=== PATIENT | male | born 1955 | race Caucasian/White ===

== ENCOUNTER → 2018-01-09 14:42 | Outpatient (CLI) | payer MEDICAID, SELFPAY ==
--- NOTE | 2018-01-09 14:43 | CT_ITS ---
STUDY: CT CHEST WITH CONTRAST REASON FOR EXAM: Male, 62 years old. Follow-up colon cancer and prostate cancer. RADIATION DOSAGE (If Supplied By Facility): CTDIvol = ( 20.38 ) mGy, DLP = ( 2248.41 ) mGycm TECHNIQUE: Transaxial imaging was performed following intravenous administration of 100CC ml of Isovue 300 contrast material. Individualized dose optimization techniques were used for this CT. COMPARISON: None. FINDINGS: The lungs are normal. There is no demonstrated pleural abnormality. Normal heart and pericardium. Normal mediastinum. Normal hilar regions. Normal enhanced pulmonary arteries. Normal aorta arch and descending thoracic aorta. Normal osseous structures. There is no demonstrated abnormality of the visualized upper abdomen. Small hiatal hernia. CT/Chest WITH Contrast IMPRESSION: Normal enhanced CT Chest examination. Electronically Signed: Eliecer Benavides MD at 16:10 EST , Service support ,
--- NOTE | 2018-01-09 14:44 | CT_ITS ---
STUDY: CT ABDOMEN AND PELVIS WITH CONTRAST REASON FOR EXAM: Male, 62 years old. Follow-up colon cancer. RADIATION DOSAGE (If Supplied By Facility): CTDIvol = ( 20.38 ) mGy, DLP = ( 2248.41 ) mGycm TECHNIQUE: Transaxial images were obtained from the dome of the diaphragm to the symphysis pubis with oral contrast. 100CC ml of Isovue 300 contrast was administered. Sagittal and coronal images were reconstructed. Individualized dose optimization techniques were used for this CT. COMPARISON: 11/06/2016. FINDINGS: The visualized lung bases are unremarkable. The visualized portions of the heart are within normal limits. Normal liver. Normal gallbladder and extrahepatic biliary system. Normal spleen. Normal pancreas. Normal bilateral adrenal glands. Normal right kidney. Normal left kidney. Normal visualized stomach. Normal small intestine. Stable appearance of partial left colon resection, otherwise normal colon. The appendix is visualized and appears normal. Normal abdominal aorta. Normal inferior vena cava. Normal retroperitoneum. Normal urinary bladder. Stable appearance of enlarged prostate gland with radiotherapy seeds. Normal abdominal wall. Normal osseous structures. CT/Abdomen/Pelvis WITH Contrast IMPRESSION: No change or acute abnormality. Electronically Signed: Eliecer Benavides MD at 15:58 EST , Service support ,
[2018-01-09 15:01] LABS: CREATININE FINGERSTICK 0.9 mg/dL (0.70-1.30); EGFR FINGERSTICK > 60.0000 mL/min (>60)
== END ==
PROVIDERS: Family Provider Family Medicine Geriatric Medicine; PCP Family Medicine Geriatric Medicine; Visit Provider Nurse Practitioner Family
DX: C18.9 Malignant neoplasm of colon, unspecified (principal)
CPT/HCPCS: 71260; 74177; Q9967

== ENCOUNTER → 2018-02-05 15:12 | Outpatient (CLI) | payer MEDICAID, SELFPAY ==
[2018-02-05 19:00] LABS: Amphetamine Urine VISTA NEGATIVE (<1000 ng/mL); Barbiturate Urine VISTA NEGATIVE (< 200 ng/mL); Benzodiazepine Urine VISTA POSITIVE (< 200 ng/mL); Cocaine Urine VISTA NEGATIVE (< 300 ng/mL); Ecstacy Urine VISTA NEGATIVE (< 500 ng/mL); Methadone Urine VISTA NEGATIVE (< 300 ng/mL); PCP Urine VISTA NEGATIVE (< 25 ng/mL); THC Urine VISTA NEGATIVE (< 50 ng/mL); Vista UDS pH Range 5
== END ==
PROVIDERS: Family Provider Family Medicine Geriatric Medicine; PCP Family Medicine Geriatric Medicine; Visit Provider Anesthesiology Pain Medicine
DX: F11.20 Opioid dependence, uncomplicated (principal)
CPT/HCPCS: 80307

== ENCOUNTER → 2018-03-06 13:34 | Outpatient (CLI) | payer MEDICARE, MEDICAID, SELFPAY ==
[2018-03-06 15:41] LABS: Absolute Lymphocyte Count 2.14 X10^3/ul (0.83-4.51); Absolute Neutrophil Count 3.5 X10^3/uL (2.0-7.7); Basophil# 0.03 X10^3/uL; Basophil% 0.5 % (0-1); Eosinophil# 0.11 X10^3/uL; Eosinophils% 1.8 % (0-5); Hematocrit 45.8 % (40-54); Hemoglobin 14.9 g/dl (13.0-16.5); Lymphocyte # 2.14 X10^3/ul (4.0); Lymphocyte % 34.4 % (19-41); Mean Corp Hgb Conc 32.5 g/gl (32-36); Mean Corpuscular Hgb 29.1 pg (27.0-32.0); Mean Corpuscular Volume 89.5 fL (80-94); Mean Platelet Vol. 10.1 fl (6.2-12.0); Monocyte# 0.43 X10^3/uL; Monocyte% 6.9 % (0-10); Neutrophil # 3.49 X10^3/uL (2.7-7.7); Neutrophil % 56.1 % (47-70); Platelet Count 222 K/mm3 (150-450); RBC Distribution Width CV 13.7 % (11.6-14.6); RBC Distribution Width SD 45.1 fl (35.1-43.9); Red Blood Count 5.12 M/mm3 (4.6-6.2); White Blood Count 6.2 K/mm3 (4.4-11.0)
[2018-03-06 15:51] LABS: POSITIVE COUNT NO; POSITIVE DIFFERENTIAL NO; POSITIVE MORPHOLOGY NO
[2018-03-06 16:11] LABS: ALB/GLOB Ratio 1.2 RATIO (0.9-2.4); AST(SGOT) 16 U/L (15-37); Alanine Aminotransfer ALT/SGPT 39 U/L (16-61); Alkaline Phosphatase 74 U/L (45-117); Anion Gap 7 (5-15); BUN 19 mg/dL (7-18); BUN/Creat Ratio 19.1 RATIO (10-20); Calcium,Total 8.9 mg/dL (8.5-10.1); Chloride 109 mmol/L (98-107); EST Glomerular Filtration Rate 81 mL/min (>60); Est Glom Filt Rate - Afr Amer 98 mL/min (>60); Globulin 3.4 g/dL (2.2-4.2); Glucose 78 mg/dL (74-106); Potassium 4.3 mmol/L (3.5-5.1); Protein, Total 7.4 g/dL (6.4-8.2); Sodium Level 141 mmol/L (136-145); Thyroid Stim Hormone (TSH) 2.64 uIU/mL (0.358-3.74)
[2018-03-07 08:14] LABS: Vitamin D,25 Hydroxy 40.7 ng/mL (29.95-100.01)
[2018-03-09 09:11] LABS: Hep C Antibodies <0.1 s/co ratio (0.0-0.9)
== END ==
PROVIDERS: Family Provider Family Medicine Geriatric Medicine; PCP Family Medicine Geriatric Medicine; Visit Provider Family Medicine Geriatric Medicine
DX: I10 Essential (primary) hypertension (principal); E55.9 Vitamin D deficiency, unspecified; Z13.89 Encounter for screening for other disorder
CPT/HCPCS: 36415; 80053; 82306; 84443; 85025; 86803

== ENCOUNTER → 2018-07-18 12:30 | Outpatient (CLI) | payer MEDICARE, MEDICAID, SELFPAY | PROVIDERS: Family Provider Family Medicine Geriatric Medicine; PCP Family Medicine Geriatric Medicine; Visit Provider Family Medicine Geriatric Medicine | DX: M25.512 Pain in left shoulder (principal) | CPT/HCPCS: 73030 ==

== ENCOUNTER → 2018-09-04 14:13 | Outpatient (CLI) | payer MEDICARE, MEDICAID, SELFPAY ==
[2018-09-04 17:02] LABS: Absolute Lymphocyte Count 1.89 X10^3/ul (0.83-4.51); Absolute Neutrophil Count 3.1 X10^3/uL (2.0-7.7); Basophil# 0.04 X10^3/uL; Basophil% 0.7 % (0-1); Eosinophil# 0.07 X10^3/uL; Eosinophils% 1.3 % (0-5); Hematocrit 43.1 % (40-54); Hemoglobin 14.4 g/dl (13.0-16.5); Lymphocyte # 1.89 X10^3/ul (4.0); Lymphocyte % 34.1 % (19-41); Mean Corp Hgb Conc 33.4 g/gl (32-36); Mean Corpuscular Hgb 30.1 pg (27.0-32.0); Mean Corpuscular Volume 90.2 fL (80-94); Mean Platelet Vol. 10.2 fl (6.2-12.0); Monocyte# 0.45 X10^3/uL; Monocyte% 8.1 % (0-10); Neutrophil # 3.07 X10^3/uL (2.7-7.7); Neutrophil % 55.4 % (47-70); Platelet Count 236 K/mm3 (150-450); RBC Distribution Width CV 14.2 % (11.6-14.6); RBC Distribution Width SD 46.5 fl (35.1-43.9); Red Blood Count 4.78 M/mm3 (4.6-6.2); White Blood Count 5.5 K/mm3 (4.4-11.0)
[2018-09-04 17:06] LABS: POSITIVE COUNT NO; POSITIVE DIFFERENTIAL NO; POSITIVE MORPHOLOGY NO
[2018-09-04 17:32] LABS: ALB/GLOB Ratio 1.1 RATIO (0.9-2.4); AST(SGOT) 22 U/L (15-37); Alanine Aminotransfer ALT/SGPT 34 U/L (16-61); Albumin, Serum 3.9 g/dL (3.2-5.0); Alkaline Phosphatase 65 U/L (45-117); Anion Gap 6 (5-15); BUN 17 mg/dL (7-18); BUN/Creat Ratio 16.5 RATIO (10-20); Chloride 107 mmol/L (98-107); Creatinine, Serum 1.03 mg/dL (0.70-1.30); EST Glomerular Filtration Rate 78 mL/min (>60); Est Glom Filt Rate - Afr Amer 94 mL/min (>60); Globulin 3.5 g/dL (2.2-4.2); Glucose 84 mg/dL (74-106); Potassium 4.2 mmol/L (3.5-5.1); Protein, Total 7.4 g/dL (6.4-8.2); Sodium Level 139 mmol/L (136-145); Thyroid Stim Hormone (TSH) 1.91 uIU/mL (0.358-3.74)
== END ==
PROVIDERS: Family Provider Family Medicine Geriatric Medicine; PCP Family Medicine Geriatric Medicine; Visit Provider Family Medicine Geriatric Medicine
DX: I10 Essential (primary) hypertension (principal)
CPT/HCPCS: 36415; 80053; 84443; 85025

== ENCOUNTER → 2018-09-12 14:51 | Outpatient (CLI) | payer MEDICARE, MEDICAID, SELFPAY ==
--- NOTE | 2018-09-12 | CYST_PTH ---
PATIENT: LEANN SOLOMON LOC: [facility] U#:[id number] AGE/SX: 70/M ROOM: RE09/12/[address]: Dr. Shwetha Rodriguez MD : 1955 BED: DIS: SPEC #: [id number] RECD: 09/12/18 14:51 STATUS: RAJIV SENAIT #: [id number] LYNNE: 09/12/18 00:[address]: Shwetha Rodriguez DEPT: SURGICAL PATHOLOGY RECD BY: Gerald Infante ENTERED: 09/13/18 07:55 SP TYPE: Cyst OTHR DR: Dr. Edwin Donald MD Tissues: Back, NOS Procedures: Surgery Specimen Level III HEADER OPERATION: Excision of cyst on back PRE-OP DIAGNOSIS: Cyst on back TISSUE SUBMITTED: Cyst on back MICROSCOPIC DIAGNOSIS Cyst on back, excision: Epidermal inclusion cyst with chronic inflammation and foreign body giant cell reaction, consistent with ruptured epidermal inclusion cyst. SJ:mike 09/14/18 MICROSCOPIC DESCRIPTION Slides are reviewed. GROSS DESCRIPTION Received in fixative is one container labeled with the patient's name and designated cyst on back. The specimen consists of a piece of parks-white skin measuring 1.5 x 0.5 cm. The underlying tissue measures 1.5 x 1 x 1 cm. Also present in the container is a detached piece of parks soft tissue measuring 1 x 1 x 0.2 cm. The largest piece is inked and serially sectioned. The entire specimen is submitted in two cassettes. / MARSHA:mike 09/13/18 TC:5 CPT: 96832
== END ==
PROVIDERS: Family Provider Family Medicine Geriatric Medicine; Visit Provider Surgery
DX: L72.0 Epidermal cyst (principal)
CPT/HCPCS: 88304

== ENCOUNTER → 2018-09-17 14:46 | Outpatient (CLI) | payer MEDICARE, MEDICAID, SELFPAY ==
--- NOTE | 2018-09-17 14:50 | CT_ITS ---
STUDY: CT CHEST WITH CONTRAST REASON FOR EXAM: Male, 63 years old. Colon cancer RADIATION DOSAGE (If Supplied By Facility): CTDIvol = ( 21.15 ) mGy, DLP = ( 2228.86 ) mGycm TECHNIQUE: Transaxial imaging was performed following intravenous administration of 100 ml of Isovue 300 contrast material. : Sagittal 2-D MPR. Individualized dose optimization techniques were used for this CT. COMPARISON: CT abdomen and pelvis same date. CT chest abdomen and pelvis 01/09/2018, CT chest 06/10/2017 and 05/12/2016. FINDINGS: Supraclavicular: No acute process. Body wall soft tissues: Mild symmetric gynecomastia. Stable. Upper abdomen: Limited evaluation, no acute process. Osseous structures: No acute process. Mediastinum: Normal esophagus. No mediastinal or hilar mass or lymphadenopathy. Aorta: Normal. Pulmonary arteries: Normal. Heart: No cardiomegaly or pericardial effusion. Mild coronary calcifications of the proximal RCA and LAD. Lungs: No acute process. No suspicious lesions. Normal airways without endobronchial lesion. CT/Chest WITH Contrast IMPRESSION: No acute cardiopulmonary process. Stable features of the chest compared to prior imaging. Electronically Signed: Anthony Villalobos, at 17:31 EDT Tel , Service support ,
--- NOTE | 2018-09-17 14:50 | CT_ITS ---
STUDY: CT ABDOMEN AND PELVIS WITH CONTRAST REASON FOR EXAM: Male, 63 years old. Colon cancer RADIATION DOSAGE (If Supplied By Facility): CTDIvol = ( 21.15 ) mGy, DLP = ( 2228.86 ) mGycm TECHNIQUE: Transaxial images were obtained from the dome of the diaphragm to the symphysis pubis with oral contrast. 100 ml of Isovue 300 contrast was administered. Sagittal and coronal images were reconstructed. Individualized dose optimization techniques were used for this CT. COMPARISON: CT chest 09/15/2018, CT abdomen and pelvis 01/09/2018 and CTA chest 06/10/2017. CT abdomen and pelvis of October and May 2016, and September 2015. FINDINGS: Body wall soft tissues: No acute process. Osseous structures: Minimal spondylosis. No suspicious lytic or blastic lesions. Inferior chest: The lung bases are clear. Distal esophagus normal. No cardiomegaly. Hepatobiliary: Normal. Pancreas: Mild atrophy. Spleen: Normal. Adrenal glands: Normal. Urogenital: Normal kidneys with symmetric nephrograms. Normal collecting systems, ureters, urinary bladder. Prostatic radiotherapy seeds. Dystrophic calcifications of the prostate gland without prostatomegaly. Symmetric and grossly normal seminal vesicles. Pelvic floor and sidewalls and retroperitoneum: No mass or adenopathy. Vasculature: Mild atherosclerosis. Stomach: No acute process. Small bowel and mesentery: No acute process. Large bowel: Normal appendix. Anastomotic sutures of the proximal sigmoid colon. Otherwise normal large bowel and rectum. Free fluid or free air: None. CT/Abdomen/Pelvis WITH Contrast IMPRESSION: No acute abdominopelvic process. There is no evidence of primary malignancy or metastatic disease. Electronically Signed: Anthony Villalobos, at 16:19 EDT Tel , Service support ,
== END ==
PROVIDERS: Family Provider Family Medicine Geriatric Medicine; PCP Family Medicine Geriatric Medicine; Referring Provider Internal Medicine Medical Oncology; Visit Provider Internal Medicine Medical Oncology
DX: C18.9 Malignant neoplasm of colon, unspecified (principal)
CPT/HCPCS: 71260; 74177; Q9967

== ENCOUNTER 2018-09-20 13:24 | Emergency (ER) | payer MEDICARE, MEDICAID, SELFPAY ==
[2018-09-20 13:24] VITALS: BP 138/78; PULSE 80; RESP 16; TEMP 36.4; O2SAT 98; BMI 31.7
--- NOTE | 2018-09-20 14:36 | VDLE_ITS ---
[id number] VL^VDUL^Venous Duplex US- Unilateral [id number] [facility] Venous Doppler [address] [place] [address] Ordering Physician: Luke Wallace TAG_ENDED TAG_START Name: LEANN SOLOMON Study Date: 09/20/2018 03:06 PM Patient Location: ED : 1955 Gender: Male Age: 63 yrs TAG_ENDED Reason For Study: LEG PAIN RIGHT GSV is normal. CFV is compressible, spontaneous, phasic, competent and demonstrates normal augmentation. FV is compressible, spontaneous, phasic, competent and demonstrates normal augmentation. POP V is compressible, spontaneous, phasic, competent and demonstrates normal augmentation. T/P Trunk is compressible. PTV is compressible. RT PerV is compressible. Procedure Exam performed portable in ED. A preliminary report was called and/or faxed to Dr. Wallace. <> Interpretation Summary There is no evidence of right lower extremity deep vein thrombosis. Right greater saphenous vein appears patent and compressible segmentally. TAG_START TAG_ENDED Ordering Physician: Luke Wallace Referring Physician: Edwin Donald Chi Performed By: Angelica Hernandez RVT
--- NOTE | 2018-09-20 15:18 | ED.VISSUMM ---
- ER Visit Summary Date of Service: 09/20/18 Chief Complaint: Atraumatic right calf pain while putting trousers on History of Present Illness: The patient is a 63 M who presents because of right calf pain. He states he was pulling up his trousers. He was doing on the leg. He states if he stands on the leg the pain is worse. Localized pain to the mid calf. He denies chest pain or shortness of breath. He does have history of colon cancer, prostate cancer and per old records history of PE, which she denied. He is pleasant on no anticoagulant. He denies paresthesia, anesthesia or motor weakness of the right lower externally. He denies symptoms of claudication. Physical Examination: Vital signs noted and blood pressure is slightly elevated 138/78. He appears no discomfort. There is pain palpation along the deep venous system, right calf. There is no asymmetry, leg vein distention, palpable cords or swelling. Having him plantar and dorsiflexes foot against resistance causes no discomfort. Lateral and AP stressing of the tibia and fibula causes no discomfort. There is no pain the patient over the tibia or fibula anteriorly. DP pulses palpable. Test Results: D-dimer was elevated at 0.7. The d-dimer is elevated after correction for age. Venous duplex study was negative for DVT Emergency Department Course and Treatment: With history of cancer atraumatic pain right calf and pain along the distribution of deep venous system a d-dimer was obtained. Since d-dimer was elevated a venous duplex study was obtained. Treatment Plan: Symptomatic treatment Disposition: Discharged home Impression: Atraumatic right calf pain unknown etiology This note was generated with [employer] dictation software. It may contain incorrect words, spelling, and punctuation that were not noted in review of the chart prior to signing ED Disposition - Plan for ED Patient: Disposition: Home or Assisted Living Chief Complaint: Lower Extremity Injury Instructions: ED Muscle Aching Referrals: Edwin Donald Chi, MD [Primary Care Provider] - 3-5 Days if not improving Additional Instructions: Take either Tylenol or Advil for your pain.
== END 2018-09-20 15:34 | disposition home or self-care (01) ==
PROVIDERS: Emergency Provider Emergency Medicine; Family Provider Family Medicine Geriatric Medicine; PCP Family Medicine Geriatric Medicine
DX: M79.661 Pain in right lower leg (principal); I10 Essential (primary) hypertension; R74.8 Abnormal levels of other serum enzymes; E66.9 Obesity, unspecified; Z85.038 Personal history of other malignant neoplasm of large intestine; Z85.46 Personal history of malignant neoplasm of prostate; Z86.711 Personal history of pulmonary embolism; Z87.891 Personal history of nicotine dependence
CPT/HCPCS: 36415; 85379; 93971; 99282

== ENCOUNTER → 2019-01-10 11:00 | Outpatient (CLI) | payer MEDICARE, MEDICAID, SELFPAY ==
--- NOTE | 2019-01-10 11:10 | RAD_ITS ---
STUDY: X-RAY - CERVICAL SPINE REASON FOR EXAM: Male, 63 years old. Neck pain TECHNIQUE: 3 view(s) of the cervical spine were obtained. COMPARISON: None FINDINGS: Normal anterior atlantoaxial articulation. Normal odontoid process. Normal cervical lordosis. There is multi-level endplate spondylosis. There is multi-level degenerative disc disease with multilevel disc space narrowing. The soft tissue structures are unremarkable. There is no demonstrated fracture of the cervical spine. RAD/Cerv Spine 2 or 3 Views IMPRESSION: Normal x-ray examination of the visualized cervical spine. Electronically Signed: Eliecer Benavides MD at 17:58 EST , Service support ,
== END ==
PROVIDERS: Family Provider Family Medicine Geriatric Medicine; PCP Family Medicine Geriatric Medicine; Referring Provider Anesthesiology Pain Medicine; Visit Provider Anesthesiology Pain Medicine
DX: M54.2 Cervicalgia (principal)
CPT/HCPCS: 72040

== ENCOUNTER → 2019-02-15 11:47 | Outpatient (CLI) | payer MEDICARE, MEDICAID, SELFPAY ==
[2019-02-15 12:17] LABS: Absolute Lymphocyte Count 1.77 X10^3/ul (0.83-4.51); Absolute Neutrophil Count 2.2 X10^3/uL (2.0-7.7); Basophil# 0.04 X10^3/uL; Basophil% 0.9 % (0-1); Eosinophil# 0.15 X10^3/uL; Eosinophils% 3.4 % (0-5); Hematocrit 42.1 % (40-54); Hemoglobin 14.2 g/dl (13.0-16.5); Lymphocyte # 1.77 X10^3/ul (4.0); Lymphocyte % 40.5 % (19-41); Mean Corp Hgb Conc 33.7 g/gl (32-36); Mean Corpuscular Hgb 29.5 pg (27.0-32.0); Mean Corpuscular Volume 87.3 fL (80-94); Mean Platelet Vol. 9.8 fl (6.2-12.0); Monocyte# 0.24 X10^3/uL; Monocyte% 5.5 % (0-10); Neutrophil # 2.16 X10^3/uL (2.7-7.7); Neutrophil % 49.5 % (47-70); Platelet Count 229 K/mm3 (150-450); RBC Distribution Width SD 41.5 fl (35.1-43.9); Red Blood Count 4.82 M/mm3 (4.6-6.2); White Blood Count 4.4 K/mm3 (4.4-11.0)
[2019-02-15 12:18] LABS: POSITIVE COUNT NO; POSITIVE DIFFERENTIAL NO; POSITIVE MORPHOLOGY NO
[2019-02-15 12:46] LABS: ALB/GLOB Ratio 1.1 RATIO (0.9-2.4); AST(SGOT) 22 U/L (15-37); Alanine Aminotransfer ALT/SGPT 35 U/L (16-61); Albumin, Serum 3.5 g/dL (3.2-5.0); Alkaline Phosphatase 80 U/L (45-117); Anion Gap 8 (5-15); BUN 12 mg/dL (7-18); BUN/Creat Ratio 12.4 RATIO (10-20); Calcium,Total 8.5 mg/dL (8.5-10.1); Chloride 114 mmol/L (98-107); Creatinine, Serum 0.97 mg/dL (0.70-1.30); EST Glomerular Filtration Rate 83 mL/min (>60); Est Glom Filt Rate - Afr Amer 101 mL/min (>60); Globulin 3.3 g/dL (2.2-4.2); Glucose 97 mg/dL (74-106); Potassium 3.7 mmol/L (3.5-5.1); Protein, Total 6.8 g/dL (6.4-8.2); Sodium Level 145 mmol/L (136-145)
[2019-02-15 19:52] LABS: Xtra Tube EP Lab EXTRA TUBE
[2019-02-16 17:14] LABS: Carcinoembryonic Antigen 0.5 ng/mL (0.0-4.7)
== END ==
PROVIDERS: Family Provider Family Medicine Geriatric Medicine; PCP Family Medicine Geriatric Medicine; Referring Provider Internal Medicine Medical Oncology; Visit Provider Internal Medicine Medical Oncology
DX: Z85.038 Personal history of other malignant neoplasm of large intestine (principal)
CPT/HCPCS: 36415; 80053; 82378; 85025

== ENCOUNTER → 2019-03-07 13:48 | Outpatient (CLI) | payer MEDICARE, MEDICAID, SELFPAY ==
[2019-03-07 16:39] LABS: Absolute Lymphocyte Count 1.76 X10^3/ul (0.83-4.51); Absolute Neutrophil Count 2.4 X10^3/uL (2.0-7.7); Basophil# 0.05 X10^3/uL; Eosinophil# 0.21 X10^3/uL; Eosinophils% 4.3 % (0-5); Hemoglobin 14.6 g/dl (13.0-16.5); Lymphocyte # 1.76 X10^3/ul (4.0); Mean Corp Hgb Conc 33.2 g/gl (32-36); Mean Corpuscular Hgb 28.9 pg (27.0-32.0); Mean Platelet Vol. 10.7 fl (6.2-12.0); Monocyte# 0.44 X10^3/uL; Neutrophil # 2.42 X10^3/uL (2.7-7.7); Neutrophil % 49.5 % (47-70); Platelet Count 247 K/mm3 (150-450); RBC Distribution Width CV 13.6 % (11.6-14.6); RBC Distribution Width SD 42.5 fl (35.1-43.9); Red Blood Count 5.06 M/mm3 (4.6-6.2); White Blood Count 4.9 K/mm3 (4.4-11.0)
[2019-03-07 16:44] LABS: POSITIVE COUNT NO; POSITIVE DIFFERENTIAL NO; POSITIVE MORPHOLOGY NO
[2019-03-07 17:35] LABS: Vitamin D,25 Hydroxy 25.3 ng/mL (29.95-100.01)
[2019-03-07 17:44] LABS: ALB/GLOB Ratio 1.2 RATIO (0.9-2.4); AST(SGOT) 29 U/L (15-37); Alanine Aminotransfer ALT/SGPT 35 U/L (16-61); Alkaline Phosphatase 86 U/L (45-117); Anion Gap 7 (5-15); BUN 15 mg/dL (7-18); BUN/Creat Ratio 14.6 RATIO (10-20); Calcium,Total 8.7 mg/dL (8.5-10.1); Chloride 107 mmol/L (98-107); Creatinine, Serum 1.03 mg/dL (0.70-1.30); EST Glomerular Filtration Rate 78 mL/min (>60); Est Glom Filt Rate - Afr Amer 94 mL/min (>60); Globulin 3.4 g/dL (2.2-4.2); Glucose 88 mg/dL (74-106); PSA,Total - Annual Screen 0.02 ng/mL (0.00-4.00); Protein, Total 7.4 g/dL (6.4-8.2); Sodium Level 138 mmol/L (136-145); Thyroid Stim Hormone (TSH) 0.95 uIU/mL (0.358-3.74)
== END ==
PROVIDERS: Family Provider Family Medicine Geriatric Medicine; PCP Family Medicine Geriatric Medicine; Visit Provider Family Medicine Geriatric Medicine
DX: I10 Essential (primary) hypertension (principal); E55.9 Vitamin D deficiency, unspecified; Z12.5 Encounter for screening for malignant neoplasm of prostate
CPT/HCPCS: 36415; 80053; 82306; 84153; 84443; 85025; G0103

== ENCOUNTER → 2019-04-04 09:43 | Outpatient (CLI) | payer MEDICARE, MEDICAID, SELFPAY ==
[2019-04-02 14:25] VITALS: BMI 32.0
[2019-04-04 10:43] LABS: AST(SGOT) 15 U/L (15-37); Alanine Aminotransfer ALT/SGPT 26 U/L (16-61); Albumin, Serum 4.1 g/dL (3.2-5.0); Alkaline Phosphatase 96 U/L (45-117); Bilirubin, Direct 0.13 mg/dL (0.00-0.30); Cholesterol 201 mg/dL (200); Globulin 3.6 g/dL (2.2-4.2); High Density Lipoprotein 54 mg/dL; Protein, Total 7.7 g/dL (6.4-8.2); Triglycerides 159 mg/dL; Very Low Density Lipoprotein 32 mg/dL (5-40)
== END ==
PROVIDERS: Family Provider Family Medicine Geriatric Medicine; PCP Family Medicine Geriatric Medicine; Referring Provider Internal Medicine Cardiovascular Disease; Visit Provider Internal Medicine Cardiovascular Disease
DX: E78.5 Hyperlipidemia, unspecified (principal)
CPT/HCPCS: 36415; 80061; 80076

== ENCOUNTER → 2019-04-09 13:55 | Outpatient (CLI) | payer MEDICARE, MEDICAID, SELFPAY ==
[2019-04-02 14:25] VITALS: BMI 32.0
[2019-04-09 14:52] LABS: Anion Gap 4 (5-15); BUN 20 mg/dL (7-18); BUN/Creat Ratio 20.7 RATIO (10-20); Calcium,Total 8.7 mg/dL (8.5-10.1); Chloride 109 mmol/L (98-107); Creatinine, Serum 0.97 mg/dL (0.70-1.30); EST Glomerular Filtration Rate 84 mL/min (>60); Est Glom Filt Rate - Afr Amer 101 mL/min (>60); Glucose 81 mg/dL (74-106); Sodium Level 140 mmol/L (136-145)
== END ==
PROVIDERS: Family Provider Family Medicine Geriatric Medicine; PCP Family Medicine Geriatric Medicine; Referring Provider Internal Medicine Cardiovascular Disease; Visit Provider Internal Medicine Cardiovascular Disease
DX: T50.2X5A Adverse effect of carbonic-anhydrase inhibitors, benzothiadiazides and other diuretics, initial encounter (principal); Y92.9 Unspecified place or not applicable
CPT/HCPCS: 36415; 80048

== ENCOUNTER → 2019-04-24 12:45 | Outpatient (CLI) | payer MEDICARE, MEDICAID, SELFPAY ==
[2019-04-02 14:25] VITALS: BMI 32.0
[2019-04-18 14:56] VITALS: BMI 31.8
--- NOTE | 2019-04-24 12:47 | ECHOD_ITS ---
Reason For Study: DYSPNEA ON EXERTION Procedure This was a 2D Doppler, Color Flow transthoracic echocardiogram. Exam performed in department. Left Ventricle Mildly dilated left ventricle. The estimated ejection fraction is 65 %. Stage 1 diastolic dysfunction. No regional wall motion abnormalities noted. Right Ventricle Normal size and thickness. Normal systolic function. Atria Normal left atrium. Normal right atrium. Normal atrial septum. Mitral Valve The mitral valve is structurally normal. No prolapse or stenosis seen. Tricuspid Valve Normal tricuspid valve. Mild (1+) tricuspid valve insufficiency. Right ventricular systolic pressure estimated to be 37 mmHg. Aortic Valve Normal aortic valve. Trisinus/trileaflet aortic valve. Pulmonic Valve Normal pulmonic valve. Great Vessels Normal aortic root. Normal arch. Normal inferior vena cava. Inferior vena cava collapse with sniff. Pericardium/Pleural No pericardial effusion. MMode/2D Measurements & Calculations LVIDd: 5.1 cm IVSd: 1.1 cm Ao root diam: 4.1 cm LVIDs: 3.4 cm LVPWd: 1.1 cm RVDd: 3.5 cm FS: 33.4 % LAV(MOD-bp): 40.4 ml LA A4 area: 16.2 cm2 LA dimension(2D): 3.2 cm LAV(MOD-bp) Indexed: 17.7 ml/m2 LAV(MOD-sp2): 41.7 ml LAV(MOD-sp4): 38.5 ml RA A4 area: 14.9 cm2 Time Measurements MV dec time: 0.20 sec Doppler Measurements & Calculations MV E max marco: 67.2 cm/sec Lat Peak E' Marco: 11.3 cm/sec Med Peak E' Marco: 7.6 cm/sec MV A max marco: 85.4 cm/sec E/E' lat: 6.0 E/E' med: 8.8 MV E/A: 0.79 Ao V2 max: 102.8 cm/sec LV V1 max: 91.3 cm/sec PA V2 max: 82.4 cm/sec Ao max P.2 mmHg LV V1 max P.3 mmHg TR max marco: 263.5 cm/sec TR max P.9 mmHg Interpretation Summary The estimated ejection fraction is 65 %. Stage 1 diastolic dysfunction. Mild (1+) tricuspid valve insufficiency. Right ventricular systolic pressure estimated to be 37 mmHg. Compared to echo reportdated 01/18/2011, LV function has remained the same, RVSP has increased from 29 to 37 mm Hg. Ordering Physician: Tanner Dietz Referring Physician: Edwin Donald Chi Performed By: Maria Ines Dutton, ROSE, RVT
== END ==
PROVIDERS: Family Provider Family Medicine Geriatric Medicine; PCP Family Medicine Geriatric Medicine; Referring Provider Internal Medicine Cardiovascular Disease; Visit Provider Internal Medicine Cardiovascular Disease
DX: R06.09 Other forms of dyspnea (principal); I10 Essential (primary) hypertension; I26.99 Other pulmonary embolism without acute cor pulmonale; Z92.21 Personal history of antineoplastic chemotherapy
CPT/HCPCS: 93306

== ENCOUNTER → 2019-05-01 12:19 | Outpatient (CLI) | payer MEDICARE, MEDICAID, SELFPAY ==
[2019-04-02 14:25] VITALS: BMI 32.0
[2019-04-18 14:56] VITALS: BMI 31.8
--- NOTE | 2019-05-01 12:22 | STEWCON_ITS ---
Reason For Study: DYSPNEA/SOB Stress Results Protocol: Dobutamine with definity Maximum Predicted HR: 159 bpm Target HR: 135 bpm % Maximum Predicted HR: 92 % DurationHeart Rate Stage (mm:ss) (bpm) BP Comment Baseline 69 136/91 10 mcg 3:43 78 171/92 20 mcg 3:00 106 156/77 30 mcg 3:07 106 / 40 mcg 2:16 146 169/82 Recovery 96 142/866 CC total Definity for test Stress Duration: 12:06 mm:ss Maximum Stress HR: 146 bpm Baseline Echocardiogram Findings The estimated ejection fraction is 65 %. Stress Echo Wall motion Data Resting WM Intermediate WM Stress WM Resting Wall Motion Wall Motion Stress No regional wall motion No regional wall motion abnormalities noted. abnormalities noted. EKG Data The baseline ECG displays normal sinus rhythm. The patient was titrated from 10 mcg to a maximum of 40 mcg of dobutamine during the stress. The maximum heart rate attained was 160 beats per minute. This was 100% of maximum predicted heart rate. During dobutamine infusion, there were no ST or T wave changes noted to suggest ischemia. No clinical angina was noted. No arrhythmias noted. Doppler Measurements & Calculations TR max winston: 243.5 cm/sec TR max P.7 mmHg Interpretation Summary The estimated ejection fraction is 65 %. Normal, adequate, dobutamine echocardiogram. Negative for ischemia by EKG and echocardiographic criteria. No anginal symptoms noted. No arrhythmias noted. Appropriate blood pressure response to dobutamine. Test terminated due to the attainment of target heart rate. Final LVEF is 75%. Decreased sensitivity due to poor echo windows requiring Definity agent. No complications. The study was technically difficult. Contrast injection was performed. Ordering Physician: Tanner Dietz Referring Physician: Tanner Dietz Performed By: Jo Douglas, ROSE, RVT
== END ==
PROVIDERS: Family Provider Family Medicine Geriatric Medicine; PCP Family Medicine Geriatric Medicine; Referring Provider Internal Medicine Cardiovascular Disease; Visit Provider Internal Medicine Cardiovascular Disease
DX: I10 Essential (primary) hypertension (principal); R06.09 Other forms of dyspnea; R53.83 Other fatigue
CPT/HCPCS: 93017; 93350; J7040; Q9957; A4216; C8928

== ENCOUNTER → 2019-07-16 11:19 | Outpatient (CLI) | payer MEDICARE, MEDICAID, SELFPAY ==
[2019-05-20 13:40] VITALS: BMI 31.8
--- NOTE | 2019-07-16 11:25 | RAD_ITS ---
STUDY: X-RAY CHEST REASON FOR EXAM: Male, 64 years old. Cough times several months TECHNIQUE: PA and lateral views of the chest. COMPARISON: 2015 FINDINGS: There are interstitial fibrotic changes of the lungs. There is no demonstrated pleural abnormality. Normal size heart. Normal mediastinum and kristin. Normal visualized pulmonary arteries. Normal visualized aortic arch and descending thoracic aorta. Normal visualized thoracic spine. Normal visualized ribs, clavicles, and shoulders. There is no demonstrated abnormality of the visualized soft tissue structures of the upper abdomen. RAD/Chest PA and Lateral IMPRESSION: Degenerative changes, as described above. No demonstrated acute cardiopulmonary process. Electronically Signed: Chucky Baker MD at 11:36 EDT , Service support ,
== END ==
PROVIDERS: Family Provider Family Medicine Geriatric Medicine; PCP Family Medicine Geriatric Medicine; Referring Provider Otolaryngology; Visit Provider Otolaryngology
DX: R05 Cough (principal)
CPT/HCPCS: 71046

== ENCOUNTER → 2019-08-06 14:38 | Outpatient (CLI) | payer MEDICARE, MEDICAID, SELFPAY ==
[2019-07-23 13:40] VITALS: BMI 32.1
--- NOTE | 2019-08-06 14:43 | CT_ITS ---
STUDY: CT CHEST WITHOUT CONTRAST REASON FOR EXAM: Male, 64 years old. Cough for 3 months RADIATION DOSAGE (If Supplied By Facility): CTDIvol = ( 17.13 ) mGy, DLP = ( 598.86 ) mGycm TECHNIQUE: Transaxial imaging was performed without the administration of intravenous contrast material. Multiplanar coronal and sagittal images were reformatted. Individualized dose optimization techniques were used for this CT. COMPARISON: Chest CT from 09/17/2018, chest x-ray from 07/16/2019 FINDINGS: Similar mild bilateral gynecomastia. There are mild paraseptal emphysematous changes of the upper lobes. No airspace consolidation or pulmonary nodule. There is no demonstrated pleural abnormality. Normal heart and pericardium. There are calcifications of the coronary arteries. Normal mediastinum. Normal hilar regions. Normal unenhanced pulmonary arteries. Normal aorta arch and descending thoracic aorta. There are multi-level degenerative changes of the thoracic spine. Diminished density of the liver compatible hepatic steatosis, grossly similar. Protruding fat from the abdominal cavity adjacent to the esophagus compatible with a small hiatal hernia. CT/Chest without Contrast IMPRESSION: 1. No airspace consolidation, pleural effusion or pulmonary nodule/mass. 2. Coronary artery atherosclerosis, mild. 3. Small hiatal hernia composed of fat. 4. Mild bilateral gynecomastia, stable. Electronically Signed: Jermaine Honeycutt MD ([place]) at 11:23 EDT , Service support ,
== END ==
PROVIDERS: Family Provider Family Medicine Geriatric Medicine; PCP Family Medicine Geriatric Medicine; Referring Provider Internal Medicine Critical Care Medicine; Visit Provider Internal Medicine Critical Care Medicine
DX: R05 Cough (principal); R93.89 Abnormal findings on diagnostic imaging of other specified body structures
CPT/HCPCS: 71250

== ENCOUNTER → 2019-09-05 13:02 | Outpatient (CLI) | payer MEDICARE, MEDICAID, SELFPAY ==
[2019-08-19 14:55] VITALS: BMI 32.3
[2019-09-05 16:15] LABS: Absolute Lymphocyte Count 2.37 X10^3/uL (0.83-4.51); Absolute Neutrophil Count 2.6 X10^3/uL (2.0-7.7); Basophil# 0.05 X10^3/uL; Basophil% 0.9 % (0-1); Eosinophil# 0.15 X10^3/uL; Eosinophils% 2.7 % (0-5); Hematocrit 48.4 % (40-54); Hemoglobin 15.7 g/dL (13.0-16.5); Lymphocyte # 2.37 X10^3/ul (4.0); Lymphocyte % 42.5 % (19-41); Mean Corp Hgb Conc 32.4 g/dL (32-36); Mean Corpuscular Volume 89.3 fL (80-94); Mean Platelet Vol. 10.6 fl (6.2-12.0); Monocyte% 7.2 % (0-10); NRBC Flagged by Analyzer 0 % (0-5); Neutrophil # 2.58 X10^3/uL (2.7-7.7); Neutrophil % 46.3 % (47-70); Platelet Count 224 K/mm3 (150-450); RBC Distribution Width CV 13.1 % (11.6-14.6); RBC Distribution Width SD 42.6 fl (35.1-43.9); Red Blood Count 5.42 M/mm3 (4.6-6.2); White Blood Count 5.6 K/mm3 (4.4-11.0)
[2019-09-05 16:32] LABS: Vitamin D,25 Hydroxy 31.3 ng/mL (29.95-100.01)
[2019-09-05 16:37] LABS: ALB/GLOB Ratio 1.2 RATIO (0.9-2.4); AST(SGOT) 25 U/L (15-37); Alanine Aminotransfer ALT/SGPT 41 U/L (16-61); Albumin, Serum 4.2 g/dL (3.2-5.0); Alkaline Phosphatase 80 U/L (45-117); Anion Gap 7 (5-15); BUN 19 mg/dL (7-18); BUN/Creat Ratio 18.8 RATIO (10-20); Chloride 107 mmol/L (98-107); Creatinine, Serum 1.01 mg/dL (0.70-1.30); EST Glomerular Filtration Rate 80 mL/min (>60); Est Glom Filt Rate - Afr Amer 96 mL/min (>60); Globulin 3.5 g/dL (2.2-4.2); Glucose 88 mg/dL (74-106); Potassium 4.2 mmol/L (3.5-5.1); Protein, Total 7.7 g/dL (6.4-8.2); Sodium Level 140 mmol/L (136-145); Thyroid Stim Hormone (TSH) 1.99 uIU/mL (0.358-3.74)
== END ==
PROVIDERS: Family Provider Family Medicine Geriatric Medicine; PCP Family Medicine Geriatric Medicine; Visit Provider Family Medicine Geriatric Medicine
DX: I10 Essential (primary) hypertension (principal); E55.9 Vitamin D deficiency, unspecified
CPT/HCPCS: 36415; 80053; 82306; 84443; 85025

== ENCOUNTER → 2019-09-10 13:13 | Outpatient (CLI) | payer MEDICARE, MEDICAID, SELFPAY ==
[2019-07-23 13:40] VITALS: BMI 32.1
[2019-08-19 14:55] VITALS: BMI 32.3
--- NOTE | 2019-09-10 15:25 | PFTCOMP_ITS ---
COMPLETE PULMONARY FUNCTION TEST INTERPRETATION Brief HPI: Patient is a 64 year old male, currently under the care of myself, who presents to [facility] for complete pulmonary function tests secondary to diagnosis of dyspnea. Respiratory therapist reports good effort and reproducible results. Interpretation: Forced expiration spirometry shows no large airways obstructive ventilatory defect with an FEV1 of 75% predicted. There is no significant bronchodilator response by strict ATS criteria. Spirograms are of good quality and plateau normally. The respiratory flow volume loop shows a normal pattern. Lung volumes by body plethysmography show a normal total lung capacity at 6.4 L, 90% predicted. All other lung volumes are within normal limits. Diffusion capacity by carbon monoxide is normal at 87% predicted. The airway resistance is normal. No previous pulmonary function tests were available for review. Impression: These pulmonary function tests are within normal limits.
== END ==
PROVIDERS: Family Provider Family Medicine Geriatric Medicine; PCP Family Medicine Geriatric Medicine; Referring Provider Internal Medicine Critical Care Medicine; Visit Provider Internal Medicine Critical Care Medicine
DX: R05 Cough (principal); R93.89 Abnormal findings on diagnostic imaging of other specified body structures
CPT/HCPCS: 94060; 94726; 94729

== ENCOUNTER → 2019-10-15 11:37 | Outpatient (CLI) | payer MEDICARE, MEDICAID, SELFPAY ==
[2019-09-19 05:50] VITALS: BMI 32.5
[2019-10-15 13:12] LABS: Hemoglobin A1c 5.6 % (4.2-6.3)
[2019-10-15 13:21] LABS: Vitamin B12 562 pg/mL (211-911)
[2019-10-15 13:22] LABS: Rheumatoid Factor < 10.0 IU/mL (<15)
[2019-10-16 14:08] LABS: SJOGREN'S Anti-SS-A test < 0.2 AI (0.0-0.9); SJOGREN'S Anti-SS-B test < 0.2 AI (0.0-0.9)
[2019-10-16 15:20] LABS: ANTINUCLEAR ANTIBODIES DIRECT Negative (Negative)
[2019-10-17 14:08] LABS: Albumin 3.6 g/dL (2.9-4.4); Albumin, Ur 45.9 % (.); Alpha-1-Globulin, Ur 3.2 % (.); Alpha-1-Globulins 0.2 g/dL (0.0-0.4); Alpha-2-Globulins 0.7 g/dL (0.4-1.0); Alpha-2-Globulins, Ur 16.4 % (.); Beta Globulin, Ur 20.4 % (.); Cytoplasmic Ab (C-ANCA) <1:20 titer (Neg:<1:20); Gamma Globulin 0.9 g/dL (0.4-1.8); Gamma Globulin, Ur 14.2 % (.); Immunoglobulin A 184 mg/dL (61-437); Immunoglobulin G 859 mg/dL (700-1600); Immunoglobulin M 168 mg/dL (20-172); M-Spike, Ur % Not Observed % (Not Observed); PROEL- TOTAL PROTEIN 6.5 g/dL (6.0-8.5)
[2019-10-17 17:59] LABS: Perinuclear Ab (P-ANCA) <1:20 titer (Neg:<1:20)
== END ==
PROVIDERS: Family Provider Family Medicine Geriatric Medicine; PCP Family Medicine Geriatric Medicine; Referring Provider Psychiatry & Neurology Neurology; Visit Provider Psychiatry & Neurology Neurology
DX: G62.9 Polyneuropathy, unspecified (principal); Z79.899 Other long term (current) drug therapy
CPT/HCPCS: 36415; 82607; 82784; 83036; 84165; 84166; 84443; 86038; 86235; 86256; 86334; 86335; 86431

== ENCOUNTER → 2019-10-31 12:11 | Outpatient (CLI) | payer MEDICARE, MEDICAID, SELFPAY ==
[2019-09-19 05:50] VITALS: BMI 32.5
--- NOTE | 2019-10-31 18:07 | NEURO ---
NCS and/or EMG Patient Report HPI:Patient is a 64-year-old male who presented with pain in his feet as well as numbness, tingling and coldness in his feet. Patient does not have any history of back problems or diabetes. Patient had chemotherapy 3 years ago and that is when patient's symptoms started. Patient described the symptoms as worst as they can get. Physical Exam: deferred as patient refused further testing. Findings: Patient had a right tibial nerve conduction study at ankle and after that he refused to have further electrical stimulation and wanted to end the test Stim was taken to 55 mA and patient could not tolerate any more stimulation. Impression: It is inconclusive as it could not be completed due to patient's having significant pain. Recommendation: Test can be repeated if patient agrees to have test in the future.
== END ==
PROVIDERS: Family Provider Family Medicine Geriatric Medicine; PCP Family Medicine Geriatric Medicine; Referring Provider Psychiatry & Neurology Neurology; Visit Provider Psychiatry & Neurology Neurology
DX: R20.0 Anesthesia of skin (principal); R20.2 Paresthesia of skin; G62.9 Polyneuropathy, unspecified
CPT/HCPCS: 95907

== ENCOUNTER → 2019-11-04 12:52 | Outpatient (CLI) | payer MEDICARE, MEDICAID, SELFPAY ==
[2019-09-19 05:50] VITALS: BMI 32.5
[2019-11-04 13:58] LABS: Amphetamine Urine VISTA NEGATIVE (<1000 ng/mL); Barbiturate Urine VISTA NEGATIVE (< 200 ng/mL); Benzodiazepine Urine VISTA NEGATIVE (< 200 ng/mL); Cocaine Urine VISTA NEGATIVE (< 300 ng/mL); Ecstacy Urine VISTA NEGATIVE (< 500 ng/mL); Methadone Urine VISTA NEGATIVE (< 300 ng/mL); PCP Urine VISTA NEGATIVE (< 25 ng/mL); THC Urine VISTA NEGATIVE (< 50 ng/mL); Vista UDS pH Range 5
== END ==
PROVIDERS: Family Provider Family Medicine Geriatric Medicine; PCP Family Medicine Geriatric Medicine; Referring Provider Anesthesiology Pain Medicine; Visit Provider Anesthesiology Pain Medicine
DX: F11.20 Opioid dependence, uncomplicated (principal)
CPT/HCPCS: 80307

== ENCOUNTER → 2020-01-29 15:44 | Outpatient (CLI) | payer MEDICARE, MEDICAID, SELFPAY ==
[2019-09-19 05:50] VITALS: BMI 32.5
[2020-01-29 16:53] LABS: Amphetamine Urine VISTA NEGATIVE (<1000 ng/mL); Barbiturate Urine VISTA NEGATIVE (< 200 ng/mL); Benzodiazepine Urine VISTA NEGATIVE (< 200 ng/mL); Cocaine Urine VISTA NEGATIVE (< 300 ng/mL); Ecstacy Urine VISTA NEGATIVE (< 500 ng/mL); Methadone Urine VISTA NEGATIVE (< 300 ng/mL); PCP Urine VISTA NEGATIVE (< 25 ng/mL); THC Urine VISTA NEGATIVE (< 50 ng/mL); Vista UDS pH Range 7
== END ==
PROVIDERS: PCP Family Medicine Geriatric Medicine; Referring Provider Anesthesiology Pain Medicine; Visit Provider Anesthesiology Pain Medicine
DX: F11.20 Opioid dependence, uncomplicated (principal)
CPT/HCPCS: 80307

== ENCOUNTER → 2020-03-16 09:17 | Outpatient (CLI) | payer MEDICARE, MEDICAID, SELFPAY ==
[2019-09-19 05:50] VITALS: BMI 32.5
--- NOTE | 2020-03-16 09:19 | US_ITS ---
STUDY: ULTRASOUND BREAST - RIGHT REASON FOR EXAM: Male, 64 years old. Right nipple pain. TECHNIQUE: Axial and longitudinal images of the RIGHT breast were performed with a high resolution ultrasound transducer. # OF IMAGES: 25 COMPARISON: Comparison is made with prior mammogram done earlier today. FINDINGS: RIGHT Breast: Retroareolar glandular tissue. Mild degree of dilated retroareolar ducts. IMPRESSION: Mild degree of dilated retroareolar ducts. ASSESSMENT CATEGORY: BIRADS Category 2: Benign. A letter regarding these results will be sent to the patient by the facility within 30 days. Electronically Signed: Manny Lomax, at 11:40 EDT , Service support , STUDY: ULTRASOUND BREAST - LEFT REASON FOR EXAM: Male, 64 years old. Pain in the left breast. TECHNIQUE: Axial and longitudinal images of the LEFT breast were performed with a high resolution ultrasound transducer. # OF IMAGES: 25 COMPARISON: Comparison is made with prior mammogram done earlier in the day. FINDINGS: LEFT Breast: Retroareolar glandular tissue. Mildly dilated retroareolar ducts. US/Breast Limited Unilateral IMPRESSION: Mildly dilated retroareolar ducts. ASSESSMENT CATEGORY: BIRADS Category 2: Benign. A letter regarding these results will be sent to the patient by the facility within 30 days. Electronically Signed: Manny Lomax, at 11:40 EDT , Service support ,
--- NOTE | 2020-03-16 09:19 | BI_ITS ---
MAMMOGRAPHY - BILATERAL DIAGNOSTIC REASON FOR EXAM: Male, 64 years old. Bilateral subareolar soreness. Patient has history of prostate and colon cancer. PERTINENT HISTORY: Non-contributory. TECHNIQUE: Digital bilateral breast cholo (3D mammographic acquisition) in the CC and MLO projections. 2-D mediolateral oblique (MLO) and craniocaudad (CC) views of both breasts were obtained. CAD: Full Field Digital Mammography with Computer Added Detection was performed. COMPARISON: None. FINDINGS: Breast Composition: Small amount of retroareolar glandular tissue. Slightly more prominent on the right side. There are no dominant masses or suspicious calcifications. No other significant abnormalities are identified. BI/DIAG MAMM W/CAD, BILAT IMPRESSION: Small amount of the retroareolar fibroglandular tissue slightly more prominent on the right side. This most likely represents gynecomastia although correlation with ultrasound is recommended. ASSESSMENT CATEGORY: BIRADS Category 0: Incomplete. Need additional imaging evaluation. A letter regarding these results will be sent to the patient by the facility within 30 days. Approximately 10% of breast cancers are not detected by mammography. A normal mammogram should not delay biopsy of a clinically suspicious abnormality. Electronically Signed: Manny Lomax, at 11:10 EDT , Service support ,
== END ==
PROVIDERS: PCP Family Medicine Geriatric Medicine; Referring Provider Family Medicine Geriatric Medicine; Visit Provider Family Medicine Geriatric Medicine
DX: N64.4 Mastodynia (principal)
CPT/HCPCS: 76642; 77062; 77066; G0279

== ENCOUNTER → 2020-06-17 15:02 | Outpatient (CLI) | payer MEDICARE, MEDICAID, SELFPAY ==
[2019-09-19 05:50] VITALS: BMI 32.5
[2020-04-22 14:45] VITALS: BMI 32.8
[2020-06-17 16:55] LABS: Basophil# 0.06 X10^3/uL; Eosinophils% 3.4 % (0-5); Hematocrit 45.9 % (40-54); Hemoglobin 15.1 g/dL (13.0-16.5); Lymphocyte % 37.8 % (19-41); Mean Corp Hgb Conc 32.9 g/dL (32-36); Mean Corpuscular Hgb 29.5 pg (27.0-32.0); Mean Corpuscular Volume 89.8 fL (80-94); Mean Platelet Vol. 10.3 fl (6.2-12.0); Monocyte# 0.37 X10^3/uL; Monocyte% 6.4 % (0-10); NRBC Flagged by Analyzer 0 % (0-5); Neutrophil # 2.97 X10^3/uL (2.7-7.7); Neutrophil % 51.1 % (47-70); Platelet Count 252 K/mm3 (150-450); RBC Distribution Width CV 12.9 % (11.6-14.6); RBC Distribution Width SD 42.5 fl (35.1-43.9); Red Blood Count 5.11 M/mm3 (4.6-6.2); White Blood Count 5.8 K/mm3 (4.4-11.0)
[2020-06-17 17:14] LABS: Vitamin D,25 Hydroxy 39.5 ng/mL
[2020-06-17 17:26] LABS: ALB/GLOB Ratio 1.1 RATIO (0.9-2.4); AST(SGOT) 21 U/L (15-37); Alanine Aminotransfer ALT/SGPT 41 U/L (16-61); Albumin, Serum 3.9 g/dL (3.2-5.0); Alkaline Phosphatase 75 U/L (45-117); Anion Gap 4 (5-15); BUN 13 mg/dL (7-18); BUN/Creat Ratio 13.2 RATIO (10-20); Calcium,Total 8.7 mg/dL (8.5-10.1); Chloride 107 mmol/L (98-107); Creatinine, Serum 0.99 mg/dL (0.70-1.30); EST Glomerular Filtration Rate 82 mL/min (>60); Est Glom Filt Rate - Afr Amer 99 mL/min (>60); Globulin 3.4 g/dL (2.2-4.2); Glucose 87 mg/dL (74-106); Potassium 3.9 mmol/L (3.5-5.1); Protein, Total 7.3 g/dL (6.4-8.2); Sodium Level 138 mmol/L (136-145); Thyroid Stim Hormone (TSH) 2.28 uIU/mL (0.358-3.74)
[2020-06-17 17:48] LABS: Amphetamine Urine VISTA NEGATIVE (<1000 ng/mL); Barbiturate Urine VISTA NEGATIVE (< 200 ng/mL); Benzodiazepine Urine VISTA NEGATIVE (< 200 ng/mL); Cocaine Urine VISTA NEGATIVE (< 300 ng/mL); Ecstacy Urine VISTA NEGATIVE (< 500 ng/mL); Methadone Urine VISTA NEGATIVE (< 300 ng/mL); PCP Urine VISTA NEGATIVE (< 25 ng/mL); THC Urine VISTA NEGATIVE (< 50 ng/mL); Vista UDS pH Range 6
== END ==
PROVIDERS: PCP Family Medicine Geriatric Medicine; Referring Provider Family Medicine Geriatric Medicine; Visit Provider Family Medicine Geriatric Medicine
DX: I10 Essential (primary) hypertension (principal); E55.9 Vitamin D deficiency, unspecified; F11.20 Opioid dependence, uncomplicated; Z12.5 Encounter for screening for malignant neoplasm of prostate
CPT/HCPCS: 36415; 80053; 80307; 82306; 84443; 85025

== ENCOUNTER → 2020-09-14 14:06 | Outpatient (CLI) | payer MEDICARE, MEDICAID, SELFPAY ==
[2020-04-22 14:45] VITALS: BMI 32.8
[2020-09-14 16:31] LABS: Absolute Lymphocyte Count 1.95 X10^3/uL (0.83-4.51); Absolute Neutrophil Count 2.6 X10^3/uL (2.0-7.7); Basophil# 0.05 X10^3/uL; Eosinophil# 0.14 X10^3/uL; Eosinophils% 2.8 % (0-5); Hematocrit 44.9 % (40-54); Hemoglobin 14.8 g/dL (13.0-16.5); Lymphocyte # 1.95 X10^3/ul (4.0); Lymphocyte % 38.6 % (19-41); Mean Corpuscular Hgb 29.1 pg (27.0-32.0); Mean Corpuscular Volume 88.4 fL (80-94); Mean Platelet Vol. 10.4 fl (6.2-12.0); Monocyte# 0.32 X10^3/uL; Monocyte% 6.3 % (0-10); NRBC Flagged by Analyzer 0 % (0-5); Neutrophil # 2.58 X10^3/uL (2.7-7.7); Neutrophil % 51.1 % (47-70); Platelet Count 243 K/mm3 (150-450); RBC Distribution Width CV 12.7 % (11.6-14.6); RBC Distribution Width SD 41.5 fl (35.1-43.9); Red Blood Count 5.08 M/mm3 (4.6-6.2); White Blood Count 5.1 K/mm3 (4.4-11.0)
[2020-09-14 16:45] LABS: Vitamin D,25 Hydroxy 33.8 ng/mL
[2020-09-14 16:51] LABS: ALB/GLOB Ratio 1.1 RATIO (0.9-2.4); AST(SGOT) 29 U/L (15-37); Alanine Aminotransfer ALT/SGPT 43 U/L (16-61); Albumin, Serum 3.8 g/dL (3.2-5.0); Alkaline Phosphatase 72 U/L (45-117); Anion Gap 9 (5-15); BUN 13 mg/dL (7-18); Calcium,Total 8.9 mg/dL (8.5-10.1); Chloride 107 mmol/L (98-107); EST Glomerular Filtration Rate 80 mL/min (>60); Est Glom Filt Rate - Afr Amer 97 mL/min (>60); Globulin 3.5 g/dL (2.2-4.2); Glucose 110 mg/dL (74-106); Potassium 3.9 mmol/L (3.5-5.1); Protein, Total 7.3 g/dL (6.4-8.2); Sodium Level 141 mmol/L (136-145); Thyroid Stim Hormone (TSH) 1.71 uIU/mL (0.358-3.74)
== END ==
PROVIDERS: PCP Family Medicine Geriatric Medicine; Referring Provider Family Medicine Geriatric Medicine; Visit Provider Family Medicine Geriatric Medicine
DX: I10 Essential (primary) hypertension (principal); E55.9 Vitamin D deficiency, unspecified
CPT/HCPCS: 36415; 80053; 82306; 84443; 85025

== ENCOUNTER → 2020-09-16 10:06 | Outpatient (CLI) | payer MEDICARE, MEDICAID, SELFPAY ==
[2020-04-22 14:45] VITALS: BMI 32.8
--- NOTE | 2020-09-16 10:10 | RAD_ITS ---
HISTORY: PLANTAR PAIN X3 WEEKS S/P TWISTING ANKLE Technique: Right foot AP, lateral, and oblique radiographs Comparison: None available Findings: No acute fracture or dislocation. Osseous mineralization, joint spaces, and alignment otherwise appear preserved as imaged. No focal abnormality or radiopaque foreign body is seen in the surrounding soft tissues. RAD/Foot min 3 Views IMPRESSION: No acute osseous abnormality identified in the foot. at 0514 Reported and signed by: Chintan Sun MD Electronically Signed: hCintan Sun MD at 5:51 EDT Tel , Service support ,
== END ==
PROVIDERS: PCP Family Medicine Geriatric Medicine; Referring Provider Family Medicine Geriatric Medicine; Visit Provider Family Medicine Geriatric Medicine
DX: M79.671 Pain in right foot (principal)
CPT/HCPCS: 73630

== ENCOUNTER → 2021-01-25 16:02 | Outpatient (CLI) | payer MEDICARE, MEDICAID, SELFPAY ==
[2020-04-22 14:45] VITALS: BMI 32.8
[2021-01-25 16:55] LABS: PSA,Total - Annual Screen < 0.01 ng/mL (0.00-4.00)
== END ==
PROVIDERS: PCP Family Medicine Geriatric Medicine; Visit Provider Family Medicine Geriatric Medicine
DX: Z12.5 Encounter for screening for malignant neoplasm of prostate (principal)
CPT/HCPCS: 36415; 84153; G0103

== ENCOUNTER → 2021-03-17 13:40 | Outpatient (CLI) | payer MEDICARE, MEDICAID, SELFPAY ==
[2020-04-22 14:45] VITALS: BMI 32.8
[2021-03-17 14:28] LABS: Absolute Lymphocyte Count 1.87 X10^3/uL (0.83-4.51); Absolute Neutrophil Count 2.6 X10^3/uL (2.0-7.7); Basophil# 0.06 X10^3/uL; Basophil% 1.2 % (0-1); Eosinophil# 0.14 X10^3/uL; Eosinophils% 2.8 % (0-5); Hematocrit 45.6 % (40-54); Hemoglobin 15.1 g/dL (13.0-16.5); Lymphocyte # 1.87 X10^3/ul (0.83-4.51); Lymphocyte % 37.3 % (19-41); Mean Corp Hgb Conc 33.1 g/dL (32-36); Mean Corpuscular Hgb 29.2 pg (27.0-32.0); Mean Platelet Vol. 10.5 fl (6.2-12.0); Monocyte# 0.38 X10^3/uL; Monocyte% 7.6 % (0-10); NRBC Flagged by Analyzer 0 % (0-5); Neutrophil # 2.55 X10^3/uL (2.7-7.7); Neutrophil % 50.9 % (47-70); Platelet Count 232 K/mm3 (150-450); RBC Distribution Width SD 42.2 fl (35.1-43.9); Red Blood Count 5.18 M/mm3 (4.6-6.2)
[2021-03-17 14:47] LABS: ALB/GLOB Ratio 1.1 RATIO (0.9-2.4); AST(SGOT) 35 U/L (15-37); Alanine Aminotransfer ALT/SGPT 52 U/L (16-61); Alkaline Phosphatase 74 U/L (45-117); Anion Gap 6 (5-15); BUN 14 mg/dL (7-18); BUN/Creat Ratio 14.2 RATIO (10-20); Chloride 108 mmol/L (98-107); Creatinine, Serum 0.98 mg/dL (0.70-1.30); EST Glomerular Filtration Rate 82 mL/min (>60); Est Glom Filt Rate - Afr Amer 99 mL/min (>60); Globulin 3.5 g/dL (2.2-4.2); Glucose 95 mg/dL (74-106); PSA,Total - Annual Screen 0.01 ng/mL (0.00-4.00); Potassium 4.1 mmol/L (3.5-5.1); Protein, Total 7.5 g/dL (6.4-8.2); Sodium Level 140 mmol/L (136-145); Thyroid Stim Hormone (TSH) 1.66 uIU/mL (0.358-3.74)
== END ==
PROVIDERS: PCP Family Medicine Geriatric Medicine; Visit Provider Family Medicine Geriatric Medicine
DX: I10 Essential (primary) hypertension (principal); Z12.5 Encounter for screening for malignant neoplasm of prostate
CPT/HCPCS: 36415; 80053; 84153; 84443; 85025; G0103

== ENCOUNTER → 2021-04-20 16:58 | Outpatient (CLI) | payer MEDICARE, MEDICAID, SELFPAY ==
[2020-04-22 14:45] VITALS: BMI 32.8
[2021-04-20 17:13] LABS: Absolute Lymphocyte Count 1.99 X10^3/uL (0.83-4.51); Absolute Neutrophil Count 2.4 X10^3/uL (2.0-7.7); Basophil# 0.06 X10^3/uL; Basophil% 1.2 % (0-1); Eosinophil# 0.13 X10^3/uL; Eosinophils% 2.6 % (0-5); Hematocrit 42.9 % (40-54); Hemoglobin 14.1 g/dL (13.0-16.5); Lymphocyte # 1.99 X10^3/ul (0.83-4.51); Mean Corp Hgb Conc 32.9 g/dL (32-36); Mean Corpuscular Volume 88.1 fL (80-94); Mean Platelet Vol. 10.1 fl (6.2-12.0); Monocyte# 0.43 X10^3/uL; Monocyte% 8.6 % (0-10); NRBC Flagged by Analyzer 0 % (0-5); Neutrophil # 2.36 X10^3/uL (2.7-7.7); Neutrophil % 47.4 % (47-70); Platelet Count 220 K/mm3 (150-450); RBC Distribution Width CV 12.8 % (11.6-14.6); RBC Distribution Width SD 41.1 fl (35.1-43.9); Red Blood Count 4.87 M/mm3 (4.6-6.2)
[2021-04-20 18:11] LABS: ALB/GLOB Ratio 1.1 RATIO (0.9-2.4); AST(SGOT) 27 U/L (15-37); Alanine Aminotransfer ALT/SGPT 34 U/L (16-61); Albumin, Serum 3.7 g/dL (3.2-5.0); Alkaline Phosphatase 70 U/L (45-117); Anion Gap 6 (5-15); BUN 12 mg/dL (7-18); BUN/Creat Ratio 11.7 RATIO (10-20); Calcium,Total 8.8 mg/dL (8.5-10.1); Chloride 108 mmol/L (98-107); Creatinine, Serum 1.03 mg/dL (0.70-1.30); EST Glomerular Filtration Rate 77 mL/min (>60); Est Glom Filt Rate - Afr Amer 94 mL/min (>60); Globulin 3.3 g/dL (2.2-4.2); Glucose 91 mg/dL (74-106); Potassium 4.2 mmol/L (3.5-5.1); Sodium Level 139 mmol/L (136-145); Thyroid Stim Hormone (TSH) 1.48 uIU/mL (0.358-3.74)
== END ==
PROVIDERS: PCP Family Medicine Geriatric Medicine; Visit Provider Family Medicine Geriatric Medicine
DX: R53.83 Other fatigue (principal)
CPT/HCPCS: 36415; 80053; 84443; 85025

== ENCOUNTER → 2021-04-21 10:46 | Outpatient (CLI) | payer MEDICARE, MEDICAID, SELFPAY ==
[2020-04-22 14:45] VITALS: BMI 32.8
[2021-04-21 11:52] LABS: Absolute Lymphocyte Count 1.64 X10^3/uL (0.83-4.51); Absolute Neutrophil Count 2.2 X10^3/uL (2.0-7.7); Basophil# 0.05 X10^3/uL; Basophil% 1.2 % (0-1); Eosinophil# 0.09 X10^3/uL; Eosinophils% 2.1 % (0-5); Hematocrit 43.8 % (40-54); Hemoglobin 15.3 g/dL (13.0-16.5); Lymphocyte # 1.64 X10^3/ul (0.83-4.51); Lymphocyte % 38.3 % (19-41); Mean Corp Hgb Conc 34.9 g/dL (32-36); Mean Corpuscular Hgb 30.5 pg (27.0-32.0); Mean Corpuscular Volume 87.4 fL (80-94); Mean Platelet Vol. 11.5 fl (6.2-12.0); Monocyte# 0.33 X10^3/uL; Monocyte% 7.7 % (0-10); NRBC Flagged by Analyzer 0 % (0-5); Neutrophil # 2.16 X10^3/uL (2.7-7.7); Neutrophil % 50.5 % (47-70); Platelet Count 273 K/mm3 (150-450); RBC Distribution Width CV 12.7 % (11.6-14.6); RBC Distribution Width SD 40.8 fl (35.1-43.9); Red Blood Count 5.01 M/mm3 (4.6-6.2); White Blood Count 4.3 K/mm3 (4.4-11.0)
[2021-04-21 12:34] LABS: ALB/GLOB Ratio 1.1 RATIO (0.9-2.4); AST(SGOT) 28 U/L (15-37); Alanine Aminotransfer ALT/SGPT 34 U/L (16-61); Albumin, Serum 3.8 g/dL (3.2-5.0); Alkaline Phosphatase 73 U/L (45-117); Anion Gap 6 (5-15); BUN 11 mg/dL (7-18); BUN/Creat Ratio 10.2 RATIO (10-20); Chloride 110 mmol/L (98-107); Creatinine, Serum 1.08 mg/dL (0.70-1.30); EST Glomerular Filtration Rate 73 mL/min (>60); Est Glom Filt Rate - Afr Amer 89 mL/min (>60); Globulin 3.4 g/dL (2.2-4.2); Glucose 94 mg/dL (74-106); LDH 164 U/L (87-241); Potassium 3.9 mmol/L (3.5-5.1); Protein, Total 7.2 g/dL (6.4-8.2); Sodium Level 140 mmol/L (136-145)
[2021-04-22 16:43] LABS: Carcinoembryonic Antigen 0.8 ng/mL (0.0-4.7)
== END ==
PROVIDERS: PCP Family Medicine Geriatric Medicine; Referring Provider Internal Medicine Medical Oncology; Visit Provider Internal Medicine Medical Oncology
DX: Z85.038 Personal history of other malignant neoplasm of large intestine (principal)
CPT/HCPCS: 36415; 80053; 82378; 83615; 85025

== ENCOUNTER → 2021-09-15 13:56 | Outpatient (CLI) | payer MEDICARE, MEDICAID, SELFPAY ==
[2021-09-15 17:08] LABS: Absolute Lymphocyte Count 1.81 X10^3/uL (0.83-4.51); Absolute Neutrophil Count 2.8 X10^3/uL (2.0-7.7); Basophil# 0.05 X10^3/uL; Eosinophil# 0.12 X10^3/uL; Eosinophils% 2.3 % (0-5); Hematocrit 42.3 % (40-54); Hemoglobin 13.8 g/dL (13.0-16.5); Lymphocyte # 1.81 X10^3/ul (0.83-4.51); Lymphocyte % 34.9 % (19-41); Mean Corp Hgb Conc 32.6 g/dL (32-36); Mean Corpuscular Hgb 28.5 pg (27.0-32.0); Mean Corpuscular Volume 87.2 fL (80-94); Mean Platelet Vol. 10.9 fl (6.2-12.0); Monocyte# 0.36 X10^3/uL; Monocyte% 6.9 % (0-10); NRBC Flagged by Analyzer 0 % (0-5); Neutrophil # 2.83 X10^3/uL (2.7-7.7); Neutrophil % 54.7 % (47-70); Platelet Count 213 K/mm3 (150-450); RBC Distribution Width SD 41.4 fl (35.1-43.9); Red Blood Count 4.85 M/mm3 (4.6-6.2); White Blood Count 5.2 K/mm3 (4.4-11.0)
[2021-09-15 17:40] LABS: BUN 17 mg/dL (7-18); Creatinine, Serum 1.01 mg/dL (0.70-1.30); Glucose 87 mg/dL (74-106)
[2021-09-15 17:41] LABS: ALB/GLOB Ratio 1.2 RATIO (0.9-2.4); AST(SGOT) 21 U/L (15-37); Alanine Aminotransfer ALT/SGPT 32 U/L (16-61); Albumin, Serum 3.7 g/dL (3.2-5.0); Alkaline Phosphatase 74 U/L (45-117); Anion Gap 6 (5-15); BUN/Creat Ratio 16.8 RATIO (10-20); Calcium,Total 8.9 mg/dL (8.5-10.1); Chloride 109 mmol/L (98-107); EST Glomerular Filtration Rate 79 mL/min (>60); Est Glom Filt Rate - Afr Amer 96 mL/min (>60); Globulin 3.2 g/dL (2.2-4.2); Protein, Total 6.9 g/dL (6.4-8.2); Sodium Level 141 mmol/L (136-145); Thyroid Stim Hormone (TSH) 1.39 uIU/mL (0.358-3.74)
== END ==
PROVIDERS: PCP Family Medicine Geriatric Medicine; Visit Provider Family Medicine Geriatric Medicine
DX: I10 Essential (primary) hypertension (principal); F52.8 Other sexual dysfunction not due to a substance or known physiological condition
CPT/HCPCS: 36415; 80053; 84403; 84443; 85025

== ENCOUNTER 2021-12-15 15:00 | Outpatient (CLI) | payer MEDICARE, MEDICAID, SELFPAY ==
[2021-12-15 16:22] LABS: Absolute Lymphocyte Count 1.87 X10^3/uL (0.83-4.51); Absolute Neutrophil Count 2.6 X10^3/uL (2.0-7.7); Basophil# 0.05 X10^3/uL; Eosinophil# 0.09 X10^3/uL; Eosinophils% 1.8 % (0-5); Hematocrit 43.7 % (40-54); Hemoglobin 14.5 g/dL (13.0-16.5); Lymphocyte # 1.87 X10^3/ul (0.83-4.51); Lymphocyte % 37.2 % (19-41); Mean Corp Hgb Conc 33.2 g/dL (32-36); Mean Corpuscular Hgb 28.4 pg (27.0-32.0); Mean Corpuscular Volume 85.5 fL (80-94); Mean Platelet Vol. 10.7 fl (6.2-12.0); NRBC Flagged by Analyzer 0 % (0-5); Neutrophil # 2.61 X10^3/uL (2.7-7.7); Neutrophil % 51.8 % (47-70); Platelet Count 223 K/mm3 (150-450); RBC Distribution Width CV 12.8 % (11.6-14.6); RBC Distribution Width SD 40.4 fl (35.1-43.9); Red Blood Count 5.11 M/mm3 (4.6-6.2)
[2021-12-15 16:38] LABS: Anion Gap 5 (5-15); BUN 17 mg/dL (7-18); BUN/Creat Ratio 18.4 RATIO (10-20); Calcium,Total 8.9 mg/dL (8.5-10.1); Chloride 110 mmol/L (98-107); Creatinine, Serum 0.92 mg/dL (0.70-1.30); EST Glomerular Filtration Rate 88 mL/min (>60); Est Glom Filt Rate - Afr Amer 106 mL/min (>60); Glucose 82 mg/dL (74-106); Sodium Level 139 mmol/L (136-145)
== END 2021-12-15 23:59 | disposition short-term general hospital (02) ==
LOC: POLAB3 15:01
PROVIDERS: PCP Family Medicine Geriatric Medicine; Visit Provider Family Medicine Geriatric Medicine
DX: R53.83 Other fatigue (principal)
CPT/HCPCS: 36415; 80048; 85025

== ENCOUNTER 2022-01-05 14:46 | Outpatient (CLI) | payer MEDICARE, MEDICAID, SELFPAY ==
[2022-01-05 17:46] LABS: Anion Gap 5 (5-15); BUN 18 mg/dL (7-18); BUN/Creat Ratio 18.7 RATIO (10-20); Chloride 110 mmol/L (98-107); Creatinine, Serum 0.96 mg/dL (0.70-1.30); EST Glomerular Filtration Rate 83 mL/min (>60); Est Glom Filt Rate - Afr Amer 101 mL/min (>60); Glucose 102 mg/dL (74-106); Sodium Level 139 mmol/L (136-145)
== END 2022-01-05 23:59 | disposition home or self-care (01) ==
LOC: POLAB3 14:47
PROVIDERS: PCP Family Medicine Geriatric Medicine; Visit Provider Family Medicine Geriatric Medicine
DX: I10 Essential (primary) hypertension (principal)
CPT/HCPCS: 36415; 80048

== ENCOUNTER → 2022-04-15 | Outpatient (CLI) | payer MEDICARE, MEDICAID, SELFPAY ==
[2022-04-15 08:22] LABS: Absolute Lymphocyte Count 2.36 X10^3/uL (0.83-4.51); Absolute Neutrophil Count 2.6 X10^3/uL (2.0-7.7); Basophil# 0.05 X10^3/uL; Basophil% 0.9 % (0-1); Eosinophil# 0.22 X10^3/uL; Eosinophils% 3.9 % (0-5); Hematocrit 42.3 % (40-54); Hemoglobin 14.2 g/dL (13.0-16.5); Lymphocyte # 2.36 X10^3/ul (0.83-4.51); Mean Corp Hgb Conc 33.6 g/dL (32-36); Mean Corpuscular Hgb 29.3 pg (27.0-32.0); Mean Corpuscular Volume 87.4 fL (80-94); Mean Platelet Vol. 10.2 fl (6.2-12.0); Monocyte% 7.1 % (0-10); NRBC Flagged by Analyzer 0 % (0-5); Neutrophil # 2.58 X10^3/uL (2.7-7.7); Neutrophil % 45.9 % (47-70); Platelet Count 201 K/mm3 (150-450); RBC Distribution Width SD 41.2 fl (35.1-43.9); Red Blood Count 4.84 M/mm3 (4.6-6.2); White Blood Count 5.6 K/mm3 (4.4-11.0)
[2022-04-15 08:53] LABS: ALB/GLOB Ratio 1.2 RATIO (0.9-2.4); AST(SGOT) 24 U/L (15-37); Alanine Aminotransfer ALT/SGPT 29 U/L (16-61); Albumin, Serum 3.7 g/dL (3.2-5.0); Alkaline Phosphatase 69 U/L (45-117); Anion Gap 7 (5-15); BUN 17 mg/dL (7-18); BUN/Creat Ratio 17.4 RATIO (10-20); Calcium,Total 8.8 mg/dL (8.5-10.1); Chloride 111 mmol/L (98-107); Creatinine, Serum 0.98 mg/dL (0.70-1.30); EST Glomerular Filtration Rate 82 mL/min (>60); Est Glom Filt Rate - Afr Amer 99 mL/min (>60); Globulin 3.2 g/dL (2.2-4.2); Glucose 121 mg/dL (74-106); LDH 198 U/L (87-241); PSA,Total- Diagnostic < 0.01 ng/mL (0.0-4.0); Potassium 4.2 mmol/L (3.5-5.1); Protein, Total 6.9 g/dL (6.4-8.2); Sodium Level 142 mmol/L (136-145)
[2022-04-16 13:10] LABS: Carcinoembryonic Antigen 0.5 ng/mL (0.0-4.7)
== END | disposition home or self-care (01) ==
LOC: LAB 07:57
PROVIDERS: PCP Family Medicine Geriatric Medicine; Referring Provider Internal Medicine Medical Oncology; Visit Provider Internal Medicine Medical Oncology
DX: C61 Malignant neoplasm of prostate (principal); Z85.038 Personal history of other malignant neoplasm of large intestine
CPT/HCPCS: 36415; 80053; 82378; 83615; 84153; 85025

== ENCOUNTER → 2022-05-03 | Outpatient (CLI) | payer MEDICARE, MEDICAID, SELFPAY ==
[2022-05-03 12:35] LABS: Absolute Lymphocyte Count 1.78 X10^3/uL (0.83-4.51); Absolute Neutrophil Count 1.9 X10^3/uL (2.0-7.7); Basophil# 0.06 X10^3/uL; Basophil% 1.5 % (0-1); Eosinophil# 0.12 X10^3/uL; Eosinophils% 2.9 % (0-5); Hematocrit 43.4 % (40-54); Hemoglobin 14.3 g/dL (13.0-16.5); Lymphocyte # 1.78 X10^3/ul (0.83-4.51); Lymphocyte % 43.2 % (19-41); Mean Corp Hgb Conc 32.9 g/dL (32-36); Mean Corpuscular Hgb 29.2 pg (27.0-32.0); Mean Corpuscular Volume 88.8 fL (80-94); Mean Platelet Vol. 10.9 fl (6.2-12.0); Monocyte# 0.26 X10^3/uL; Monocyte% 6.3 % (0-10); NRBC Flagged by Analyzer 0 % (0-5); Neutrophil # 1.88 X10^3/uL (2.7-7.7); Neutrophil % 45.6 % (47-70); Platelet Count 204 K/mm3 (150-450); RBC Distribution Width CV 13.1 % (11.6-14.6); RBC Distribution Width SD 42.9 fl (35.1-43.9); Red Blood Count 4.89 M/mm3 (4.6-6.2); White Blood Count 4.1 K/mm3 (4.4-11.0)
[2022-05-03 12:56] LABS: ALB/GLOB Ratio 1.4 RATIO (0.9-2.4); AST(SGOT) 32 U/L (15-37); Alanine Aminotransfer ALT/SGPT 33 U/L (16-61); Alkaline Phosphatase 69 U/L (45-117); Anion Gap 5 (5-15); BUN 15 mg/dL (7-18); BUN/Creat Ratio 16.5 RATIO (10-20); Calcium,Total 8.6 mg/dL (8.5-10.1); Chloride 109 mmol/L (98-107); Creatinine, Serum 0.91 mg/dL (0.70-1.30); EST Glomerular Filtration Rate 89 mL/min (>60); Est Glom Filt Rate - Afr Amer 108 mL/min (>60); Globulin 2.9 g/dL (2.2-4.2); Glucose 102 mg/dL (74-106); Potassium 4.3 mmol/L (3.5-5.1); Protein, Total 6.9 g/dL (6.4-8.2); Sodium Level 139 mmol/L (136-145); Thyroid Stim Hormone (TSH) 2.04 uIU/mL (0.358-3.74)
[2022-05-03 13:05] LABS: Vitamin D,25 Hydroxy 35.4 ng/mL
== END | disposition home or self-care (01) ==
LOC: POLAB3 09:47
PROVIDERS: PCP Family Medicine Geriatric Medicine; Visit Provider Family Medicine Geriatric Medicine
DX: I10 Essential (primary) hypertension (principal); E55.9 Vitamin D deficiency, unspecified
CPT/HCPCS: 36415; 80053; 82306; 84443; 85025

== ENCOUNTER 2022-09-09 05:19 | Day surgery (SDC) | payer MEDICARE, MEDICAID, SELFPAY ==
[2022-09-09] VITALS (9 sets, daily range): BP systolic 136–173; BP diastolic 77–101; PULSE 52–61; RESP 16–18; TEMP 36.4–37.2; O2SAT 97–100; BMI 29.7
[2022-09-09] MEDS: Lactated Ringers 1,000 ML 15 ML IV (05:58)
--- NOTE | 2022-09-09 06:08 | HP.PCM_ITS ---
History and Physical Date of Admission: 09/09/22 Visit Reasons:?CSCOPE HISTORY OF CANCER Chief Complaint: colonoscopy, h/o colon cancer Education Counselor Required: No Is patient in pain?: No Allergies amlodipine Allergy (Unknown, Verified 08/15/22 13:26) Unknown Medications levothyroxine 25 mcg tablet 25 mcg PO DAILY 01/16/18 [History Confirmed 08/15/22] pravastatin 40 mg tablet 40 mg PO QHS 01/16/18 [History Confirmed 08/15/22] polyethylene glycol 3350 17 gram/dose oral powder 17 g PO DAILY 03/29/19 [History Confirmed 08/15/22] multivitamin 1 tab PO DAILY 04/02/19 [History Confirmed 08/15/22] gabapentin 300 mg capsule 300 mg PO BIDCM 04/22/20 [History Confirmed 08/15/22] losartan 50 mg tablet 50 mg PO QAM #90 tabs 07/23/21 [Rx Confirmed 08/15/22] losartan 25 mg tablet 25 mg PO QPM #90 tabs 03/16/22 [Rx Confirmed 08/15/22] buprenorphine 8 mg-naloxone 2 mg sublingual film 0.5 film sublingual DAILY 08/15/22 [History Confirmed 08/15/22] tamsulosin 0.4 mg capsule 0.4 mg PO DAILY 08/15/22 [History Confirmed 08/15/22] PFSH Medical History? Anxiety Colon cancer Degenerative cervical disc Excessive daytime sleepiness Generalized weakness HTN (hypertension) Hyperglycemia Hyperlipidemia Hypokalemia Hypophosphatemia Myalgia Peripheral neuropathy Prostate cancer Pulmonary embolism Urinary frequency Vertigo Vitamin D deficiency Surgical History? History of colon resection s/p port placement Family History? Brother Heart disease Myocardial infarction Social History? Smoking Status:? Former smoker alcohol intake:? never HPI HPI HPI: 67-year-old gentleman Who is referred by oncologist Dr. Marcellus Cobos for surgical consultation regarding endoscopic follow-up.? Apparently August 28, 2015 Dr. 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 Morel on September 07, 2015 performed a sigmoid colectomy.? There was invasion through the muscularis propria and at the inked surgical surface.? 3 out of 13 lymph nodes were positive.? Pathologic stage pT4a, N1B, M0.? A PET scan was negative for metastatic disease.? CEA was 2.5.? The patient had 12 cycles of FOLFOX.? This was complicated by pulmonary embolism November 2015.? He also had complications with peripheral neuropathy.? Also had history of prostate cancer and had seed implantation July 2016 at [facility]. I assisted this patient August 18, 2017.? Did a colonoscopy using 90 mg dermal and 3 mg of Versed.? Colocolonic anastomosis was identified at 30 cm with suspected small area of granulation tissue.? The pathology demonstrated the same acute and chronic inflammation granulation tissue no evidence of malignancy. The patient has peripheral neuropathy related to chemotherapy noting his feet worse than his hands.? This does provide some limitations.? He denies abdominal pain.? No rectal bleeding.? He has health over the past year or 2 has been steady ROS General General: Yes fatigue and colon cancer; No weight change, appetite, breast cancer or weakness HEENT HEENT: No difficulty swallowing, eye injury, eye surgery, swollen glands or hoarseness Endo Endocrine: No thyroid disease, diabetes mellitus, thyroid cancer, Hair loss, heat intolerance or cold intolerance Skin Skin: No rash or changing moles Breast Breast: No left breast lump, right breast lump, nipple discharge, breast pain, abnormal mammogram, abnormal US or breast enlargement Musc Musculoskeletal: No back problems, arthritis, rheumatoid arthritis, gout or joint pain Cardio Cardiovascular: Yes high blood pressure; No murmur, pacemaker, heart disease, atrial fibrillation, heart attack, heart s tent, palpitations, shortness of breat with exertion or chest pain Psych Psychiatric: No depression, anxiety or hearing voices Resp Respiratory: No shortness of breath, No sleep apnea, No cough, No COPD, No asthma, No emphysema and No wheezing Gastro Gastrointestinal: No abdominal pain, No nausea or vomiting, No diarrhea, Yes constipation, No blood in stool, Yes acid reflux, Yes hemorrhoids, No ulcers, No gallbladder problem and No black,tarry stools Scottie Hematologic: No blood thinners, No blood disorders, No bleeding, No anemia and No blood clots Neuro Neurologic: No system reviewed and no additional complaints, except as documented, No as per HPI, No abnormal gait, No abnormal hearing, No abnormal movements, No abnormal speech, No behavioral changes, No burning sensations, No confusion, No convulsions, No disequilibrium, No dizziness, No localized weakness, No frequent falls, No headache(s), No lack of coordination, No loss of vision, No memory loss, Yes numbness, No other visual disturbances, No radicular pain, No restless legs, No sensory deficit, No syncope, Yes tingling, No tremor(s), No weakness and No other Exam Const General: cooperative, comfortable and no acute distress Nutritional Appearance: obese [facility] Head: normal to inspection Eyes General: appearance normal, both eyes and all related structures Neck Neck: normal visual inspection Chest Chest palpation & inspection: normal inspection of the chest Other: Left upper back has a 1.2 cm diameter exophytic sebaceous cyst with dark central change. Resp Effort & Inspection: normal respiratory effort Auscultation: clear to auscultation bilaterally Cardio Rate: regular rate Rhythm: regular rhythm GI Palpation: soft and no hepatosplenomegaly Other: Well-healed infraumbilical midline incision, no fascial defect, normal bowel sounds, no masses, Musc Cervical Spine: normal cervical lordosis Skin Other: Left upper back sebaceous cyst Neuro General: patient alert, patient awake and patient oriented x3 Extrem General: no calf tenderness Psych Appearance: grossly normal Assessment and Plan Assessment and Plan (1) History of colon cancer in adulthood: ?Status:?Chronic ?Comment: No clinical evidence of disease. (2) Sebaceous cyst: ?Status:?Acute Plan I recommended the patient a colonoscopy with possible biopsy or polypectomy as indicated.? We will utilize a 2-day bowel prep because of his previous remotely failed prep.? He is aware of the technique, benefit, risk, alternatives.? He did well with IV sedation relaxation.? He has had an opportunity to ask questions answered.? We will schedule procedure at his discretion. The patient has an enlarging sebaceous cyst left upper back.? He is interested in removal prior to potential infection.? There is a central area that is somewhat dark suggesting irritation.? I recommend to him in office excision under local anesthetic and we will schedule and also procedure at his discretion. I appreciate the ongoing opportunity of assisting with the surgical care Copy: Dr. Marcellus Cobos and Dr. Edwin New M.D., F.Kirsten.C.S. I have re-examined the patient. There are no clinical changes since date of exam. Jackson New M.D., F.A.C.S.
[2022-09-09] MEDS: Midazolam 5 MG/ML Syringe (06:27)
--- NOTE | 2022-09-09 06:46 | OP.COLON_ITS ---
Patient Name: Tanner Porter Procedure Date: 09/09/2022 6:18 AM Date of : 1955 Age: 67 Procedure: Colonoscopy Indications: High risk colon cancer surveillance: Personal history of colon cancer Providers: Jackson New MD Referring MD: Edwin Donald MD Medicines: Midazolam 3.5 mg IV, Meperidine 100 mg IV Patient Profile: Last Colonoscopy: July 2017. Complications: No immediate complications. Procedure: Pre-Anesthesia Assessment: - Prior to the procedure, a History and Physical was performed, and patient medications and allergies were reviewed. The patient's tolerance of previous anesthesia was also reviewed. The risks and benefits of the procedure and the sedation options and risks were discussed with the patient. All questions were answered, and informed consent was obtained. Prior Anticoagulants: The patient has taken no previous anticoagulant or antiplatelet agents. ASA Grade Assessment: II - A patient with mild systemic disease. After reviewing the risks and benefits, the patient was deemed in satisfactory condition to undergo the procedure. After I obtained informed consent, the scope was passed under direct vision. Throughout the procedure, the patient's blood pressure, pulse, and oxygen saturations were monitored continuously. The colonoscope was introduced through the anus and advanced to the cecum, identified by appendiceal orifice and ileocecal valve. The colonoscopy was performed without difficulty. The patient tolerated the procedure well. The quality of the bowel preparation was good. The ileocecal valve and the appendiceal orifice were photographed. Moderate Sedation: Moderate (conscious) sedation was personally administered by the endoscopist. The following parameters were monitored: oxygen saturation, heart rate, blood pressure, and response to care. Total physician intraservice time was 15 minutes. Scope In: 6:30:01 AM Scope Withdrawal Time 0 hours 7 minutes 19 seconds Scope Out: 6:40:37 AM Total Procedure Duration Time 0 hours 10 minutes 36 seconds Findings: The digital rectal exam findings include anal stricture. A few diverticula were found in the sigmoid colon. The exam was otherwise without abnormality. Impression: - Anal stricture found on digital rectal exam. - Diverticulosis in the sigmoid colon. - The examination was otherwise normal. - No specimens collected. Recommendation: - Discharge patient to home. - Resume previous diet. - Continue present medications. - Repeat colonoscopy in 5 years for surveillance. Procedure Code(s): --- Professional --- 62389, Colonoscopy, flexible; diagnostic, including collection of specimen(s) by brushing or washing, when performed (separate procedure) 85277, 59, Moderate sedation services provided by the same physician or other qualified health neurocritical care physician performing the diagnostic or therapeutic service that the sedation supports, requiring the presence of an independent trained observer to assist in the monitoring of the patient's level of consciousness and physiological status; initial 15 minutes of intraservice time, patient age 5 years or older Diagnosis Code(s): --- Professional --- Z85.038, Personal history of other malignant neoplasm of large intestine K62.4, Stenosis of anus and rectum K57.30, Diverticulosis of large intestine without perforation or abscess without bleeding CPT copyright 2017 [employer]. All rights reserved. The codes documented in this report are preliminary and upon computer education professor review may be revised to meet current compliance requirements. Jackson New MD 09/09/2022 6:46:04 AM This report has been signed electronically. Number of Addenda: 0 Note Initiated On: 09/09/2022 6:18 AM
--- NOTE | 2022-09-09 06:47 | OP.CCLET_ITS ---
09/09/2022 Edwin Donald MD [address] [place] [address] Re : Colonoscopy procedure for Tanner Jimers Dear Dr. Donald This procedure was performed on Friday, September 09, 2022. My impressions and recommendations are as follows: Impressions : - Anal stricture found on digital rectal exam. - Diverticulosis in the sigmoid colon. - The examination was otherwise normal. - No specimens collected. Recommendations : - Discharge patient to home. - Resume previous diet. - Continue present medications. - Repeat colonoscopy in 5 years for surveillance. My findings are described in the full procedure note, which is enclosed. If I can be of further assistance, please feel free to contact me at Doctor phone number(s): Work: . Sincerely, Jackson New MD 09/09/2022 6:46:04 AM This report has been signed electronically.
== END 2022-09-09 07:17 | disposition home or self-care (01) ==
LOC: EN 05:19 → AC 05:24
PROVIDERS: PCP Family Medicine Geriatric Medicine; Referring Provider Family Medicine Geriatric Medicine; Visit Provider Surgery
PROC: 0DJD8ZZ Inspection of Lower Intestinal Tract, Via Natural or Artificial Opening Endoscopic (ICD-10-PCS; CPT 45378; principal; 2022-09-09 06:25)
DX: Z12.11 Encounter for screening for malignant neoplasm of colon (principal); K62.4 Stenosis of anus and rectum; K57.30 Diverticulosis of large intestine without perforation or abscess without bleeding; L72.3 Sebaceous cyst; G62.9 Polyneuropathy, unspecified; Z79.890 Hormone replacement therapy; Z79.899 Other long term (current) drug therapy; Z87.891 Personal history of nicotine dependence; Z85.038 Personal history of other malignant neoplasm of large intestine
CPT/HCPCS: G0105; 99152; 99153; J7120

== ENCOUNTER → 2022-10-18 | Outpatient (CLI) | payer MEDICARE, MEDICAID, SELFPAY ==
--- NOTE | 2022-10-18 15:20 | CYST_PTH ---
PATIENT: LEANN SOLOMON LOC: [facility] U#:[id number] AGE/SX: 67/M ROOM: RE10/18/[address]: Dr. Jackson New MD : 1955 BED: DIS: 10/18/2022 SPEC #: [id number] RECD: 10/18/22 16:32 STATUS: RAJIV REМарина #: [id number] LYNNE: 10/18/22 15:[address]: Jackson New DEPT: SURGICAL PATHOLOGY RECD BY: Coleen Sanders ENTERED: 10/19/22 08:45 SP TYPE: Cyst OTHR DR: Dr. Edwin Donald MD Tissues: CYST Procedures: Surgery Specimen Level III HEADER OPERATION: Excision left upper back sebaceous cyst PRE-OP DIAGNOSIS: Sebaceous cyst left upper back TISSUE SUBMITTED: Sebaceous cyst left upper back MICROSCOPIC DIAGNOSIS Left upper back cyst, excision: Epidermal inclusion cyst. MARSHA:mike 10/21/2022 MICROSCOPIC DESCRIPTION Slides are reviewed. GROSS DESCRIPTION Received in fixative is one container labeled with the patient's name and designated upper back cyst. The specimen consists of a piece of parks-white skin with underlying tissue measuring 2.2 x 0.8 cm and up to 1 cm in thickness. The specimen is inked, serially sectioned and reveals a cyst filled with parks-white cheesy material measuring 0.6 cm in greatest dimension. The entire specimen is submitted in one cassette. / SJ:rg 10/19/2022 :5 [facility]: [id number]
== END | disposition home or self-care (01) ==
LOC: LABSPEC 17:06
PROVIDERS: PCP Family Medicine Geriatric Medicine; Visit Provider Surgery
DX: L72.3 Sebaceous cyst (principal)
CPT/HCPCS: 88304

== ENCOUNTER → 2022-11-01 | Outpatient (CLI) | payer MEDICARE, MEDICAID, SELFPAY ==
[2022-11-01 17:06] LABS: Absolute Lymphocyte Count 2.28 X10^3/uL (0.83-4.51); Absolute Neutrophil Count 2.9 X10^3/uL (2.0-7.7); Basophil# 0.05 X10^3/uL; Basophil% 0.9 % (0-1); Eosinophil# 0.16 X10^3/uL; Eosinophils% 2.7 % (0-5); Hematocrit 43.5 % (40-54); Hemoglobin 14.2 g/dL (13.0-16.5); Lymphocyte # 2.28 X10^3/ul (0.83-4.51); Mean Corp Hgb Conc 32.6 g/dL (32-36); Mean Platelet Vol. 10.4 fl (6.2-12.0); Monocyte# 0.46 X10^3/uL; Monocyte% 7.9 % (0-10); NRBC Flagged by Analyzer 0 % (0-5); Neutrophil # 2.88 X10^3/uL (2.7-7.7); Neutrophil % 49.2 % (47-70); Platelet Count 220 K/mm3 (150-450); RBC Distribution Width CV 12.8 % (11.6-14.6); RBC Distribution Width SD 41.6 fl (35.1-43.9); Red Blood Count 4.89 M/mm3 (4.6-6.2); White Blood Count 5.9 K/mm3 (4.4-11.0)
[2022-11-01 17:45] LABS: Vitamin D,25 Hydroxy 27.2 ng/mL
[2022-11-01 18:22] LABS: ALB/GLOB Ratio 1.3 RATIO (0.9-2.4); AST(SGOT) 18 U/L (15-37); Alanine Aminotransfer ALT/SGPT 34 U/L (16-61); Albumin, Serum 3.8 g/dL (3.2-5.0); Alkaline Phosphatase 63 U/L (45-117); Anion Gap 8 (5-15); BUN 16 mg/dL (7-18); BUN/Creat Ratio 18.9 RATIO (10-20); Calcium,Total 8.6 mg/dL (8.5-10.1); Chloride 108 mmol/L (98-107); Creatinine, Serum 0.85 mg/dL (0.70-1.30); EST Glomerular Filtration Rate 96 mL/min (>60); Est Glom Filt Rate - Afr Amer 117 mL/min (>60); Globulin 2.9 g/dL (2.2-4.2); Glucose 85 mg/dL (74-106); Potassium 3.9 mmol/L (3.5-5.1); Protein, Total 6.7 g/dL (6.4-8.2); Sodium Level 141 mmol/L (136-145); Thyroid Stim Hormone (TSH) 2.49 uIU/mL (0.358-3.74)
== END | disposition home or self-care (01) ==
LOC: POLAB3 13:43
PROVIDERS: PCP Family Medicine Geriatric Medicine; Visit Provider Family Medicine Geriatric Medicine
DX: I10 Essential (primary) hypertension (principal); E55.9 Vitamin D deficiency, unspecified
CPT/HCPCS: 36415; 80053; 82306; 84443; 85025

== ENCOUNTER 2023-05-23 09:05 | Outpatient (CLI) | payer MEDICARE, MEDICAID, SELFPAY ==
[2023-05-23 10:29] LABS: Absolute Lymphocyte Count 3.14 X10^3/uL (0.83-4.51); Absolute Neutrophil Count 2.8 X10^3/uL (2.0-7.7); Basophil# 0.06 X10^3/uL; Basophil% 0.9 % (0-1); Eosinophil# 0.18 X10^3/uL; Eosinophils% 2.7 % (0-5); Hematocrit 47.9 % (40-54); Hemoglobin 16.1 g/dL (13.0-16.5); Lymphocyte # 3.14 X10^3/ul (0.83-4.51); Lymphocyte % 47.8 % (19-41); Mean Corp Hgb Conc 33.6 g/dL (32-36); Mean Corpuscular Hgb 29.8 pg (27.0-32.0); Mean Corpuscular Volume 88.5 fL (80-94); Mean Platelet Vol. 10.1 fl (6.2-12.0); Monocyte# 0.37 X10^3/uL; Monocyte% 5.6 % (0-10); NRBC Flagged by Analyzer 0 % (0-5); Neutrophil # 2.81 X10^3/uL (2.7-7.7); Neutrophil % 42.8 % (47-70); Platelet Count 238 K/mm3 (150-450); RBC Distribution Width CV 12.9 % (11.6-14.6); RBC Distribution Width SD 41.7 fl (35.1-43.9); Red Blood Count 5.41 M/mm3 (4.6-6.2); White Blood Count 6.6 K/mm3 (4.4-11.0)
[2023-05-23 10:57] LABS: Vitamin D,25 Hydroxy 45.3 ng/mL
[2023-05-23 11:03] LABS: AST(SGOT) 17 U/L (15-37); Alanine Aminotransfer ALT/SGPT 27 U/L (16-61); Albumin, Serum 3.7 g/dL (3.2-5.0); Alkaline Phosphatase 71 U/L (45-117); Anion Gap 7 (5-15); BUN 20 mg/dL (7-18); BUN/Creat Ratio 20.1 RATIO (10-20); Calcium,Total 8.5 mg/dL (8.5-10.1); Chloride 109 mmol/L (98-107); Cholesterol 170 mg/dL (200); EST Glomerular Filtration Rate 80 mL/min (>60); Est Glom Filt Rate - Afr Amer 97 mL/min (>60); Globulin 3.6 g/dL (2.2-4.2); Glucose 101 mg/dL (74-106); High Density Lipoprotein 60 mg/dL; LDH 164 U/L (87-241); PSA,Total - Annual Screen < 0.01 ng/mL (0.00-4.00); Potassium 4.3 mmol/L (3.5-5.1); Protein, Total 7.3 g/dL (6.4-8.2); Sodium Level 137 mmol/L (136-145); Thyroid Stim Hormone (TSH) 4.48 uIU/mL (0.358-3.74); Triglycerides 113 mg/dL; Very Low Density Lipoprotein 23 mg/dL (5-40)
[2023-05-24 04:45] LABS: Carcinoembryonic Antigen < 0.6 ng/mL (0.0-4.7)
== END 2023-05-23 23:59 | disposition home or self-care (01) ==
LOC: LAB 09:08
PROVIDERS: Internal Medicine Medical Oncology; PCP Family Medicine Geriatric Medicine; Referring Provider Family Medicine Geriatric Medicine; Visit Provider Family Medicine Geriatric Medicine
DX: I10 Essential (primary) hypertension (principal); E55.9 Vitamin D deficiency, unspecified; Z12.5 Encounter for screening for malignant neoplasm of prostate; Z85.038 Personal history of other malignant neoplasm of large intestine
CPT/HCPCS: 36415; 80053; 80061; 82306; 82378; 83615; 84153; 84443; 85025; G0103

== ENCOUNTER 2023-09-04 21:19 | Emergency (ER) | payer MEDICARE, MEDICAID, SELFPAY ==
[2023-09-04 21:19] VITALS: BP 215/98; PULSE 77; RESP 18; TEMP 36.1; O2SAT 99; BMI 31.8
--- NOTE | 2023-09-04 21:39 | CT_ITS ---
INDICATION: headache, HTN EXAMINATION: CT BRAIN - CT Head or Brain W/O Contrast Injection TECHNIQUE: Multiple axial images were obtained of the head without intravenous contrast. A radiation dose optimization technique was used for this scan. IV Contrast dosage and agent: None. COMPARISON: None FINDINGS: BRAIN PARENCHYMA: No intra- or extra-axial hemorrhage. No evidence of acute infarct. No intracranial mass or mass effect. Unremarkable white matter for age. There is preservation of the douglass/white matter interface. Posterior fossa structures are unremarkable. Bilateral carotid atherosclerosis. CSF SPACES: Cerebral volume appropriate for age. No hydrocephalus. Basal cisterns are patent. CALVARIUM, SKULL BASE, PARANASAL SINUSES AND MASTOID AIR CELLS: No acute osseous finding. Paransasal sinuses are clear. Mastoid air cells are clear. ORBITS: Both globes, extraocular muscles, optic nerves and retrobulbar fat appear unremarkable. ASPECTS Score for Acute Strokes: 10 CT/Brain/Head without Contrast IMPRESSION: No CT evidence of acute intracranial hemorrhage or injury. Carotid atherosclerosis. Electronically Signed: Harsha Helton MD at 22:25 EDT ,
[2023-09-04 21:48] VITALS: BP 158/86; PULSE 66; RESP 12; O2SAT 95
--- NOTE | 2023-09-04 21:48 | EX.ED.DYSGE1 ---
HPI History of Present Illness Chief Complaint: Hypertension Informant: patient Onset/Context/Timing Onset: Today Narrative Narrative: Patient presents secondary to high blood pressure and headache. He has a history of hypertension but has been off of his losartan for the past 2 months because his blood pressures have been doing quite well. He states he usually gets pressures around 130s over 80s. Today his blood pressure has been elevated and he complains of a headache and some dizziness. He reports some mild nausea. He took losartan this afternoon, 2 different doses for a total of 75 mg without significant proved in his blood pressure. He also took a dose of Valium about an hour ago. [facility] Medical History Anxiety Colon cancer Degenerative cervical disc Excessive daytime sleepiness Former smoker Generalized weakness HTN (hypertension) Hyperglycemia Hyperlipidemia Hypokalemia Hypophosphatemia Migraines Myalgia Peripheral neuropathy Prostate cancer Pulmonary embolism Pulmonary embolism Urinary frequency Vertigo Vitamin D deficiency Home Medications levothyroxine 25 mcg tablet 25 mcg PO DAILY 01/16/18 [History Last Taken Unknown] pravastatin 40 mg tablet 40 mg PO QHS 01/16/18 [History Last Taken Unknown] polyethylene glycol 3350 17 gram/dose oral powder 17 g PO DAILY 03/29/19 [History Last Taken Unknown] multivitamin 1 tab PO DAILY 04/02/19 [History Last Taken Unknown] gabapentin 300 mg capsule 300 mg PO BIDCM PRN numbness and tingling 04/22/20 [History Last Taken Unknown] losartan 50 mg tablet 50 mg PO QAM #90 tabs 07/23/21 [Rx Last Taken 09/09/22 05:30] losartan 25 mg tablet 25 mg PO QPM #90 tabs 03/16/22 [Rx Last Taken Unknown] tamsulosin 0.4 mg capsule 0.4 mg PO DAILY 08/15/22 [History Last Taken Unknown] alprazolam 1 mg tablet (Xanax) 1 mg PO DAILY PRN anxiety 09/04/23 [History Last Taken Unknown] buprenorphine 2 mg-naloxone 0.5 mg sublingual tablet 1 tab sublingual DAILY 09/04/23 [History Last Taken Unknown] buprenorphine 8 mg-naloxone 2 mg sublingual film 09/04/23 [History Last Taken Unknown] buprenorphine 8 mg-naloxone 2 mg sublingual tablet tab sublingual DAILY PRN pain 09/04/23 [History Last Taken Unknown] Allergy/AdvReac Type Severity Reaction Status Date / Time amlodipine Allergy Unknown Unknown Verified 09/04/23 21:21 Family History Brother Heart disease Myocardial infarction Surgical History History of colon resection s/p port placement Social History Smoking Status: Former smoker alcohol intake: never ROS ROS ED Constitutional Constitutional ED: Denies chills or fever(s) Eyes Eyes: Denies change in vision or discharge from eye(s) ENT ENT ED: Denies discharge from eye(s), rhinorrhea or sore throat Cardiovascular Cardiovascular: Denies chest pain or palpitations Respiratory/Chest Respiratory/Chest: Denies cough or dyspnea Gastrointestinal Gastrointestinal: Reports nausea; Denies abdominal pain or vomiting Genitourinary Genitourinary ED: Denies difficulty urinating or dysuria Musculoskeletal Musculoskeletal: Denies back pain or extremity pain Integumentary Denies Abrasions or rash Neurologic Neurologic: Reports headache(s); Denies weakness Psychiatric Psychiatric: Denies anxiety or depression Allergic/Immunologic Allergic/Immunologic ED: Denies lip swelling or urticaria EXAM Physical Exam Const Vital Signs: 09/04/23 21:19 09/04/23 21:31 09/04/23 21:48 Temperature 96.9 F L Temperature Source Temporal Pulse Rate 77 66 Respiratory Rate 18 12 Respiratory Pattern Normal Blood Pressure 215/98 H 158/86 H Blood Pressure Mean 137 110 Pulse Ox 99 95 Oxygen Delivery Method Room Air Room Air Positive well nourished and well developed General Appearance ED: well developed HEENT Reports normocephalic and head/scalp atraumatic Eyes PERRL and EOMs intact bilaterally Neck supple Chest Wall inspection of chest normal and palpation of chest normal Resp normal respiratory effort and clear to auscultation bilaterally Cardio regular rate and regular rhythm GI non-tender Palpation: soft Extremity normal to inspection Neuro oriented x3 and no sensory deficits noted Sensorium / Orientation: alert Motor Exam: strength 5/5 throughout Psych mental status grossly normal Skin no rashes or lesions noted MDM MDM MDM Narrative Medical decision making narrative: Patient given a dose of hydralazine here for blood pressure control. Patient sent to CT for a scan of the brain to ensure no intracranial bleed. Patient is given Tylenol initially for headache control. History & Record Review Discussion w/independent historian: Patient Additional record(s) reviewed:: Prior labs Lab Data Attestation: I reviewed the patient's lab results. Labs: Laboratory Results - last 24 hr 09/04/23 21:50 WBC 5.8 RBC 4.94 Hgb 14.4 Hct 43.2 MCV 87.4 MCH 29.1 MCHC 33.3 RDW Std Deviation 42.0 RDW Coeff of Megha 13.0 Plt Count 193 MPV 10.1 Immature Gran % (Auto) 0.200 Neut % (Auto) 40.2 L Lymph % (Auto) 48.3 H Gaston % (Auto) 7.0 Eos % (Auto) 3.3 Baso % (Auto) 1.0 Absolute Neuts (auto) 2.3 Absolute Lymphs (auto) 2.78 Nucleated RBC % 0 PT 13.6 INR 1.0 APTT 26.9 Sodium 141 Potassium 3.9 Chloride 109 H Carbon Dioxide 28.0 Anion Gap 4 L BUN 17 Creatinine 1.31 H Estim Creat Clear Calc 60.88 Est GFR (MDRD) Af Amer 70 Est GFR (MDRD) Non-Af 58 L BUN/Creatinine Ratio 13.0 Glucose 138 H Calcium 9.1 Radiography Diagnostic Testing: Clinical Impression(s) from Imaging Studies Brain CT 09/04/23 21:39 IMPRESSION: No CT evidence of acute intracranial hemorrhage or injury. Carotid atherosclerosis. Electronically Signed: Harsha Helton MD at 22:25 EDT , Treatment and Re-Evaluation :: Hydralazine was ordered for the patient, however before it was given his repeat blood pressure was 158/86. It was held and patient was sent for CT. CT of the head reveals no acute findings. Patient did receive his Tylenol. On repeat exam he states his headache is improving. His systolic pressure is still 159. I told him my initial goal was only bring him down about 20% to a goal of between 155 and 165. Since he is holding at this point I will not give him further blood pressure medication at this time. He will be discharged home with family. He will check his blood pressure the morning and call his primary care physician if his blood pressure is still elevated. He may simply need to restart his losartan. He is comfortable with this plan. Discharge Plan Triage Chief Complaint: Hypertension ED Provider: Benita Peoples Dx/Rx/DC Orders Clinical Impression: Headache, HTN (hypertension) Instructions: ED Hypertension, Established Prescriptions: No Action polyethylene glycol 3350 17 gram/dose powder 17 g PO DAILY multivitamin tablet 1 tab PO DAILY tamsulosin 0.4 mg capsule 0.4 mg PO DAILY pravastatin 40 MG tablet 40 mg PO QHS levothyroxine 25 MCG tablet 25 mcg PO DAILY gabapentin 300 MG capsule 300 mg PO BIDCM PRN (Reason: numbness and tingling) buprenorphine-naloxone 2-0.5 mg tablet, sublingual 1 tab sublingual DAILY buprenorphine-naloxone 8-2 mg tablet, sublingual SUBLINGUAL DAILY PRN Patient Comments: take 1/4 (one-fourth) TABLET UNDER THE TONGUE FOUR TIMES DAILY buprenorphine-naloxone 8-2 mg film Patient Comments: Take 1/4 tablet sublingually four times a day for 28 Days alprazolam [Xanax] 1 mg tablet 1 mg PO DAILY PRN (Reason: anxiety) losartan 50 mg tablet 50 mg PO QAM Qty: 90 3RF Hold Instructions: not taking losartan 25 mg tablet 25 mg PO QPM Qty: 90 3RF Hold Instructions: not taking Rx Instructions: 50 mg losartan in the AM and 25 mg in the evening Primary Care Provider: Edwin Donald Chi Referrals: Edwin Donald Chi, MD [Primary Care Provider] - As soon as possible Activity Restrictions/Additional Instructions: As discussed, please check your blood pressure in the morning. Please call Dr. Donald if your blood pressure is still elevated. You may need to restart your losartan. Disposition Disposition: Home, Self Care
[2023-09-04] MEDS: Acetaminophen 500 MG Tablet 1000 MG PO (21:52)
[2023-09-04 22:07] LABS: Anion Gap 4 (5-15); BUN 17 mg/dL (7-18); Calcium,Total 9.1 mg/dL (8.5-10.1); Chloride 109 mmol/L (98-107); Creatinine, Serum 1.31 mg/dL (0.70-1.30); EST Glomerular Filtration Rate 58 mL/min (>60); Est Glom Filt Rate - Afr Amer 70 mL/min (>60); Estimated Creatinine Clearance 60.88 ml/min; Glucose 138 mg/dL (74-106); Potassium 3.9 mmol/L (3.5-5.1); Sodium Level 141 mmol/L (136-145)
[2023-09-04 22:13] LABS: Absolute Lymphocyte Count 2.78 X10^3/uL (0.83-4.51); Absolute Neutrophil Count 2.3 X10^3/uL (2.0-7.7); Basophil# 0.06 X10^3/uL; Eosinophil# 0.19 X10^3/uL; Eosinophils% 3.3 % (0-5); Hematocrit 43.2 % (40-54); Hemoglobin 14.4 g/dL (13.0-16.5); Lymphocyte # 2.78 X10^3/ul (0.83-4.51); Lymphocyte % 48.3 % (19-41); Mean Corp Hgb Conc 33.3 g/dL (32-36); Mean Corpuscular Hgb 29.1 pg (27.0-32.0); Mean Corpuscular Volume 87.4 fL (80-94); Mean Platelet Vol. 10.1 fl (6.2-12.0); NRBC Flagged by Analyzer 0 % (0-5); Neutrophil # 2.31 X10^3/uL (2.7-7.7); Neutrophil % 40.2 % (47-70); Platelet Count 193 K/mm3 (150-450); Red Blood Count 4.94 M/mm3 (4.6-6.2); White Blood Count 5.8 K/mm3 (4.4-11.0)
[2023-09-04 22:18] LABS: Partial Thromboplast Time 26.9 Seconds (24.1-36.2); Prothrombin Time (Protime)PT. 13.6 SECONDS (11.7-14.9)
[2023-09-04 22:39] VITALS: BP 159/85
== END 2023-09-04 22:40 | disposition home or self-care (01) ==
PROVIDERS: Emergency Provider Emergency Medicine; PCP Family Medicine Geriatric Medicine; Visit Provider Emergency Medicine
DX: I10 Essential (primary) hypertension (principal); R51.9 Headache, unspecified; E78.5 Hyperlipidemia, unspecified; Z87.891 Personal history of nicotine dependence; Z79.899 Other long term (current) drug therapy
CPT/HCPCS: 70450; 80048; 85025; 85610; 85730; 99283; J7030; A4216

== ENCOUNTER → 2023-11-02 | Outpatient (CLI) | payer MEDICARE, MEDICAID, SELFPAY ==
[2023-11-02 15:03] LABS: Absolute Lymphocyte Count 1.75 X10^3/uL (0.83-4.51); Absolute Neutrophil Count 2.3 X10^3/uL (2.0-7.7); Basophil# 0.04 X10^3/uL; Basophil% 0.9 % (0-1); Eosinophil# 0.13 X10^3/uL; Eosinophils% 2.9 % (0-5); Hematocrit 43.2 % (40-54); Hemoglobin 14.7 g/dL (13.0-16.5); Lymphocyte # 1.75 X10^3/ul (0.83-4.51); Lymphocyte % 38.7 % (19-41); Mean Corpuscular Hgb 29.5 pg (27.0-32.0); Mean Corpuscular Volume 86.7 fL (80-94); Mean Platelet Vol. 10.2 fl (6.2-12.0); Monocyte# 0.25 X10^3/uL; Monocyte% 5.5 % (0-10); NRBC Flagged by Analyzer 0 % (0-5); Neutrophil # 2.34 X10^3/uL (2.7-7.7); Neutrophil % 51.8 % (47-70); Platelet Count 193 K/mm3 (150-450); RBC Distribution Width CV 13.2 % (11.6-14.6); RBC Distribution Width SD 41.1 fl (35.1-43.9); Red Blood Count 4.98 M/mm3 (4.6-6.2); White Blood Count 4.5 K/mm3 (4.4-11.0)
[2023-11-02 15:22] LABS: ALB/GLOB Ratio 1.1 RATIO (0.9-2.4); AST(SGOT) 24 U/L (15-37); Alanine Aminotransfer ALT/SGPT 27 U/L (16-61); Albumin, Serum 3.7 g/dL (3.2-5.0); Alkaline Phosphatase 65 U/L (45-117); Anion Gap 6 (5-15); BUN 16 mg/dL (7-18); BUN/Creat Ratio 14.5 RATIO (10-20); Calcium,Total 8.4 mg/dL (8.5-10.1); Chloride 110 mmol/L (98-107); Cholesterol 159 mg/dL (200); EST Glomerular Filtration Rate 71 mL/min (>60); Est Glom Filt Rate - Afr Amer 86 mL/min (>60); Globulin 3.4 g/dL (2.2-4.2); Glucose 141 mg/dL (74-106); High Density Lipoprotein 50 mg/dL; Potassium 3.6 mmol/L (3.5-5.1); Protein, Total 7.1 g/dL (6.4-8.2); Sodium Level 140 mmol/L (136-145); Thyroid Stim Hormone (TSH) 3.06 uIU/mL (0.358-3.74); Triglycerides 124 mg/dL; Very Low Density Lipoprotein 25 mg/dL (5-40)
[2023-11-02 15:27] LABS: Vitamin D,25 Hydroxy 34.3 ng/mL
== END | disposition home or self-care (01) ==
LOC: POLAB3 13:21
PROVIDERS: PCP Family Medicine Geriatric Medicine; Visit Provider Family Medicine Geriatric Medicine
DX: I10 Essential (primary) hypertension (principal); E55.9 Vitamin D deficiency, unspecified; E78.5 Hyperlipidemia, unspecified
CPT/HCPCS: 36415; 80053; 80061; 82306; 84443; 85025

== ENCOUNTER 2024-04-06 22:33 | Emergency (ER) | payer MEDICARE, MEDICAID, SELFPAY ==
[2024-04-06 22:35] VITALS: BP 189/84; PULSE 67; RESP 18; TEMP 36.1; O2SAT 98; BMI 32.2
--- NOTE | 2024-04-06 23:02 | EX.ED.DYSGE1 ---
HPI History of Present Illness Chief Complaint: Hypertension Informant: patient Onset/Context/Timing Onset: Yesterday Context: Sudden Onset Timing: Continuous Quality: Dizzy Location: Generalized Worsened by: Nothing Relieved by: Nothing Narrative Narrative: Patient presents with elevated blood pressures since yesterday. Patient states he went in for a test yesterday and when he came out of his test, his blood pressure was elevated. Patient states it has been running around 200/105 since yesterday. Patient states he feels dizzy. Patient states nothing makes his blood pressure better and nothing makes it worse. Patient states he has taken extra doses of his blood pressure medication with minimal relief. Patient denies any chest pain or shortness of breath. Patient denies any nausea or vomiting. Patient denies any headaches. PFSH PFS Medical History Anxiety Colon cancer Degenerative cervical disc Excessive daytime sleepiness Former smoker Generalized weakness HTN (hypertension) Hyperglycemia Hyperlipidemia Hypokalemia Hypophosphatemia Migraines Myalgia Peripheral neuropathy Prostate cancer Pulmonary embolism Pulmonary embolism Urinary frequency Vertigo Vitamin D deficiency Home Medications pravastatin 40 mg tablet 40 mg PO QHS 01/16/18 [History Last Taken Unknown] polyethylene glycol 3350 17 gram/dose oral powder 17 g PO DAILY 03/29/19 [History Last Taken Unknown] multivitamin 1 tab PO DAILY 04/02/19 [History Last Taken Unknown] gabapentin 300 mg capsule 300 mg PO BIDCM PRN numbness and tingling 04/22/20 [History Last Taken Unknown] losartan 25 mg tablet 50 mg PO BID 04/06/24 [History Last Taken Unknown] levothyroxine 25 mcg tablet 25 mcg PO DAILY 04/07/24 [History Last Taken Unknown] Allergy/AdvReac Type Severity Reaction Status Date / Time amlodipine Allergy Unknown Unknown Verified 04/06/24 22:34 Family History Brother Heart disease Myocardial infarction Surgical History History of colon resection s/p port placement Social History Smoking Status: Former smoker alcohol intake: never ROS ROS ED Constitutional Constitutional ED: Denies chills or fever(s) Eyes Eyes: Denies blurry vision or change in vision ENT ENT ED: Denies rhinorrhea or sore throat Cardiovascular Cardiovascular: Denies chest pain or palpitations Respiratory/Chest Respiratory/Chest: Denies cough or dyspnea Gastrointestinal Gastrointestinal: Reports nausea; Denies vomiting Genitourinary Genitourinary ED: Denies dysuria or hematuria Musculoskeletal Musculoskeletal: Denies back pain or neck pain Integumentary Denies abscess or rash Neurologic Neurologic: Denies headache(s) or weakness Allergic/Immunologic Allergic/Immunologic ED: Denies mouth swelling or urticaria EXAM Physical Exam Const Vital Signs: 04/06/24 22:35 04/07/24 00:19 Temperature 97 F L Temperature Source Temporal Pulse Rate 67 Respiratory Rate 18 Respiratory Effort Normal Respiratory Pattern Normal Blood Pressure 189/84 H Blood Pressure Mean 119 Pulse Ox 98 Oxygen Delivery Method Room Air Positive well nourished and well developed General Appearance ED: well developed and NAD HEENT Reports moist mucous membranes Neck supple and no JVD Resp normal respiratory effort and clear to auscultation bilaterally Cardio regular rate and regular rhythm GI non-tender and non-distended Palpation: soft Extremity normal to inspection General Extremety ED: Negative for edema or tenderness General Extremity: Negative for edema Neuro oriented x3, CN's II-XII intact bilaterally and no sensory deficits noted Sensorium / Orientation: alert Motor Exam: strength 5/5 throughout Psych mental status grossly normal MDM MDM MDM Narrative Medical decision making narrative: Differential diagnosis includes hypertensive urgency, hypertensive emergency, uncontrolled hypertension, electrolyte abnormality, and anxiety. EKG will be obtained to assess for cardiac dysrhythmia and cardiac ischemia. Chest x-ray will be obtained to assess for widened mediastinum and congestive heart failure. CBC will be obtained to assess for leukocytosis and anemia. Basic metabolic profile will be obtained to assess for electrolyte abnormality and renal function. High-sensitivity troponin will be obtained to assess for cardiac ischemia. Urinalysis will be obtained to assess for urinary tract infection and hematuria. Lab Data Attestation: I reviewed the patient's lab results. Lab results narrative: CBC was reviewed and was within normal limits. Basic metabolic profile was reviewed and was within normal limits. High-sensitivity troponin was reviewed and was normal at 12. Urinalysis was reviewed. There is no evidence of urinary tract infection or hematuria. Labs: Laboratory Results - last 24 hr 04/06/24 23:50 WBC 6.0 RBC 4.72 Hgb 13.8 Hct 41.9 MCV 88.8 MCH 29.2 MCHC 32.9 RDW Std Deviation 42.3 RDW Coeff of Megha 13.0 Plt Count 187 MPV 10.3 Immature Gran % (Auto) 0.300 Neut % (Auto) 42.7 L Lymph % (Auto) 42.0 H [place] % (Auto) 9.0 Eos % (Auto) 4.8 Baso % (Auto) 1.2 H Absolute Neuts (auto) 2.6 Absolute Lymphs (auto) 2.53 Nucleated RBC % 0 Sodium 142 Potassium 4.3 Chloride 110 H Carbon Dioxide 27.0 Anion Gap 5 BUN 19 H Creatinine 0.89 Estim Creat Clear Calc 103.61 Est GFR (MDRD) Af Amer 109 Est GFR (MDRD) Non-Af 91 BUN/Creatinine Ratio 21.3 H Glucose 87 Calcium 9.3 Troponin I High Sens 12 Urine Color Yellow Urine Clarity Clear Urine pH 6.5 Ur Specific [place] 1.015 Urine Protein Negative Urine Glucose (UA) Normal Urine Ketones Negative Urine Occult Blood Negative Urine Nitrite Negative Urine Bilirubin Negative Urine Urobilinogen Normal Ur Leukocyte Esterase Negative Urine RBC 0 SEEN Urine WBC 0 SEEN Ur Squamous Epith Cells 0 SEEN Urine Bacteria 0 SEEN Urine Mucus 0 SEEN Radiography Chest X-Ray - ED: 2 View, Read by ED Physician, Read by Radiologist and No Acute Disease Diagnostic Testing: Clinical Impression(s) from Imaging Studies Chest X-Ray 04/06/24 23:45 IMPRESSION: No evidence of active intrathoracic disease. Electronically Signed: Jo Christensen MD at 0:27 EDT , PA and lateral chest x-ray was obtained. There are 2 views. On my independent interpretation, lung pierce are clear. There is normal cardiac silhouette. Bony thorax is normal. There is no acute process noted. Radiologist also interpreted the x-ray and agrees. EKG Initial EKG: Attestation: I personally reviewed and interpreted this EKG as follows: Interpretation: No Acute Injury Pattern and Sinus Bradycardia (58) Comments: EKG was obtained. On my independent interpretation, it showed sinus bradycardia with a rate of 58. [place] interval, QRS interval, and QTc intervals were all normal. [place] was normal. There are no acute ST or T wave changes. Prior EKG tracings: available for review Prior: Unchanged (04/02/2019) Treatment and Re-Evaluation :: Patient was placed on cardiac and pulse oximeter monitors. Patient was given a dose of labetalol. Patient's blood pressure improved to 113/69. Patient is feeling better on reevaluation. Patient was instructed to continue to monitor his blood pressures at home. Patient was instructed to follow-up with his primary care physician in 3 to 5 days. Patient was instructed to return if worse in any way. Patient understood and was agreeable with the plan. All questions were answered. Discharge Plan Triage Chief Complaint: Hypertension ED Provider: Ravindra Delgado Dx/Rx/DC Orders Clinical Impression: HTN (hypertension), Chronic cough Instructions: ED Hypertension, Established Prescriptions: No Action polyethylene glycol 3350 17 gram/dose powder 17 g PO DAILY multivitamin tablet 1 tab PO DAILY pravastatin 40 MG tablet 40 mg PO QHS gabapentin 300 MG capsule 300 mg PO BIDCM PRN (Reason: numbness and tingling) losartan 25 mg tablet 50 mg PO BID Hold Instructions: not taking levothyroxine 25 mcg tablet 25 mcg PO DAILY Primary Care Provider: Edwin Donald Chi Referrals: Edwin Donald Chi, MD [Primary Care Provider] - 3-5 Days Disposition Disposition: Home, Self Care
--- NOTE | 2024-04-06 23:45 | RAD_ITS ---
INDICATION: Cough EXAMINATION/TECHNIQUE: X-RAY - XR Chest 2 Views COMPARISON: None. FINDINGS: LINES/DEVICES: None. LUNGS: No consolidation. No pneumothorax. MEDIASTINUM: Unremarkable. CARDIAC SILHOUETTE: Not enlarged. BONES AND SOFT TISSUES: No acute abnormalities. RAD/Chest PA and Lateral IMPRESSION: No evidence of active intrathoracic disease. Electronically Signed: Jo Christensen MD at 0:27 EDT ,
[2024-04-06] MEDS: Labetalol (Prefilled) 20 MG/4 ML IV (23:57)
[2024-04-07 00:06] LABS: Absolute Lymphocyte Count 2.53 X10^3/uL (0.83-4.51); Absolute Neutrophil Count 2.6 X10^3/uL (2.0-7.7); Bacteria 0 SEEN /hpf (None Seen); Basophil# 0.07 X10^3/uL; Basophil% 1.2 % (0-1); Eosinophil# 0.29 X10^3/uL; Eosinophils% 4.8 % (0-5); Hematocrit 41.9 % (40-54); Hemoglobin 13.8 g/dL (13.0-16.5); Lymphocyte # 2.53 X10^3/ul (0.83-4.51); Mean Corp Hgb Conc 32.9 g/dL (32-36); Mean Corpuscular Hgb 29.2 pg (27.0-32.0); Mean Corpuscular Volume 88.8 fL (80-94); Mean Platelet Vol. 10.3 fl (6.2-12.0); Monocyte# 0.54 X10^3/uL; Mucous, Urine 0 SEEN /hpf (<or=2+); NRBC Flagged by Analyzer 0 % (0-5); Neutrophil # 2.58 X10^3/uL (2.7-7.7); Neutrophil % 42.7 % (47-70); Platelet Count 187 K/mm3 (150-450); RBC Distribution Width SD 42.3 fl (35.1-43.9); Red Blood Cells-Urine 0 SEEN /hpf (0-5); Red Blood Count 4.72 M/mm3 (4.6-6.2); Squamous Epithelial Cells - UA 0 SEEN /hpf (0-5); White Blood Cells 0 SEEN /hpf (0-5)
[2024-04-07 00:08] LABS: Color, Urine Yellow (Yellow); Glucose, Dipstick Normal (Normal); Ketone-Dipstick Negative (Negative); Leukocyte Esterase-Dipstick Negative /ul (Negative); Nitrite-Dipstick Negative (Negative); Occult Blood-Urine Negative /ul (Negative); Protein-Dipstick Negative (Negative); Specific Gravity, Urine 1.015 (1.002-1.030); Urine Bilirubin Dipstick Negative (Negative); Urine Clarity Clear (Clear); Urine Urobilinogen Normal (Normal); Urine pH 6.5 (5.0 - 8.0)
[2024-04-07 00:24] LABS: Anion Gap 5 (5-15); BUN 19 mg/dL (7-18); BUN/Creat Ratio 21.3 RATIO (10-20); Calcium,Total 9.3 mg/dL (8.5-10.1); Chloride 110 mmol/L (98-107); Creatinine, Serum 0.89 mg/dL (0.70-1.30); EST Glomerular Filtration Rate 91 mL/min (>60); Est Glom Filt Rate - Afr Amer 109 mL/min (>60); Estimated Creatinine Clearance 103.61 ml/min; Glucose 87 mg/dL (74-106); Potassium 4.3 mmol/L (3.5-5.1); Sodium Level 142 mmol/L (136-145); Troponin-I HS 12 pg/mL (3.0-78.0)
[2024-04-07 00:34] VITALS: BP 158/87; PULSE 59; RESP 16; O2SAT 97
[2024-04-07 01:37] VITALS: BP 153/79; PULSE 56; RESP 17; TEMP 36.7; O2SAT 99
== END 2024-04-07 01:37 | disposition home or self-care (01) ==
PROVIDERS: Emergency Provider Emergency Medicine; PCP Family Medicine Geriatric Medicine; Visit Provider Emergency Medicine
DX: I10 Essential (primary) hypertension (principal); R05.3 Chronic cough; E78.5 Hyperlipidemia, unspecified; Z79.890 Hormone replacement therapy; Z79.899 Other long term (current) drug therapy; Z87.891 Personal history of nicotine dependence
CPT/HCPCS: 71046; 80048; 81001; 84484; 85025; 93005; 96374; 99283

== ENCOUNTER → 2024-06-05 | Outpatient (CLI) | payer MEDICARE, MEDICAID, SELFPAY ==
[2024-06-05 16:40] LABS: Absolute Lymphocyte Count 1.82 X10^3/uL (0.83-4.51); Absolute Neutrophil Count 2.7 X10^3/uL (2.0-7.7); Basophil# 0.05 X10^3/uL; Eosinophil# 0.15 X10^3/uL; Hematocrit 43.6 % (40-54); Hemoglobin 14.7 g/dL (13.0-16.5); Lymphocyte # 1.82 X10^3/ul (0.83-4.51); Lymphocyte % 36.3 % (19-41); Mean Corp Hgb Conc 33.7 g/dL (32-36); Mean Corpuscular Hgb 29.9 pg (27.0-32.0); Mean Corpuscular Volume 88.8 fL (80-94); Mean Platelet Vol. 11.4 fl (6.2-12.0); Monocyte# 0.27 X10^3/uL; Monocyte% 5.4 % (0-10); NRBC Flagged by Analyzer 0 % (0-5); Neutrophil # 2.72 X10^3/uL (2.7-7.7); Neutrophil % 54.1 % (47-70); Platelet Count 198 K/mm3 (150-450); RBC Distribution Width CV 13.4 % (11.6-14.6); RBC Distribution Width SD 43.9 fl (35.1-43.9); Red Blood Count 4.91 M/mm3 (4.6-6.2)
[2024-06-05 17:31] LABS: Vitamin D,25 Hydroxy 37.5 ng/mL
[2024-06-05 17:46] LABS: AST(SGOT) 34 U/L (15-37); Alanine Aminotransfer ALT/SGPT 32 U/L (16-61); Albumin, Serum 3.6 g/dL (3.2-5.0); Alkaline Phosphatase 65 U/L (45-117); Anion Gap 5 (5-15); BUN 16 mg/dL (7-18); BUN/Creat Ratio 18.6 RATIO (10-20); Calcium,Total 8.9 mg/dL (8.5-10.1); Chloride 113 mmol/L (98-107); Cholesterol 136 mg/dL (200); Creatinine, Serum 0.86 mg/dL (0.70-1.30); EST Glomerular Filtration Rate 94 mL/min (>60); Est Glom Filt Rate - Afr Amer 114 mL/min (>60); Globulin 3.5 g/dL (2.2-4.2); Glucose 125 mg/dL (74-106); High Density Lipoprotein 46 mg/dL; LDH 282 U/L (87-241); PSA,Total- Diagnostic < 0.01 ng/mL (0.0-4.0); Potassium 4.5 mmol/L (3.5-5.1); Protein, Total 7.1 g/dL (6.4-8.2); Sodium Level 137 mmol/L (136-145); Thyroid Stim Hormone (TSH) 1.03 uIU/mL (0.358-3.74); Triglycerides 148 mg/dL; Very Low Density Lipoprotein 30 mg/dL (5-40)
[2024-06-07 08:13] LABS: Carcinoembryonic Antigen < 0.6 ng/mL (0.0-4.7)
== END | disposition home or self-care (01) ==
LOC: LAB 15:18
PROVIDERS: Internal Medicine Medical Oncology; PCP Family Medicine Geriatric Medicine; Referring Provider Family Medicine Geriatric Medicine; Visit Provider Family Medicine Geriatric Medicine
DX: C61 Malignant neoplasm of prostate (principal); I10 Essential (primary) hypertension; E78.5 Hyperlipidemia, unspecified; E55.9 Vitamin D deficiency, unspecified; Z12.5 Encounter for screening for malignant neoplasm of prostate; Z85.038 Personal history of other malignant neoplasm of large intestine
CPT/HCPCS: 80053; 80061; 82306; 82378; 83615; 84153; 84443; 85025

== ENCOUNTER 2024-12-02 11:41 | Emergency (ER) | payer MEDICARE, MEDICAID, SELFPAY ==
[2024-12-02 11:42] VITALS: BP 167/91; PULSE 95; RESP 20; TEMP 36.2; O2SAT 99; BMI 32.3
--- NOTE | 2024-12-02 12:15 | EKG12_ITS ---
Test Reason : SOB Blood Pressure : */* mmHG Vent. Rate : 61 BPM Atrial Rate : 61 BPM P-R Int : 194 ms QRS Dur : 84 ms QT Int : 402 ms P-R-T Axes : 37 17 36 degrees QTcB Int : 404 ms Normal sinus rhythm Normal ECG Confirmed by Nick Cooper ([id number]), story editor MARLON PEACOCK ([id number]) on 12/03/2024 1:22:14 PM Referred By: Confirmed By: Nick Cooper
--- NOTE | 2024-12-02 12:16 | ED.VIS.DYS ---
HPI History of Present Illness Chief Complaint: Shortness of Breath Informant: patient Onset/Context/Timing Onset: Today Context: gradual and light activity Timing: Intermittent Quality: Positive for - (Heavy) Worsened by: Nothing Relieved by: Nothing Associated Symptoms Negative for cough, rhinorrhea, post nasal drip, ear pain, fever, sore throat, chills, sweats, clear sputum, white sputum, yellow sputum or green sputum Chest Pain: Positive for None Narrative Narrative: Patient presents with shortness of breath that began today. Patient states today he frequently gets up in the middle of the night to urinate. Patient states that when he does this and goes back to bed, he feels short of breath. Patient states that when he got up this morning he was still short of breath. Patient states his breathing feels heavy. Patient states he feels better since he arrived here in the emergency department. Patient states nothing makes his breathing worse and nothing makes it better. Patient admits to some lightheadedness and dizziness. Patient denies any cough. Patient denies any fevers or chills. Patient denies any chest pain. PE Risk Factors: Positive for Cancer; Negative for OCP + Smoking + > 35, Prior DVT or PE, Recent immobilization, Recent surgery or Recent travel [facility] Medical History Former smoker Pulmonary embolism Migraines Excessive daytime sleepiness Peripheral neuropathy Generalized weakness Degenerative cervical disc Hyperglycemia Hypophosphatemia Hypokalemia Vitamin D deficiency Myalgia Urinary frequency Vertigo Pulmonary embolism Hyperlipidemia Anxiety Prostate cancer Colon cancer HTN (hypertension) Home Medications ?Medication ?Instructions ?Recorded ?Last Taken ?Type pravastatin 40 mg tablet 40 mg PO QHS 01/16/18 Unknown History polyethylene glycol 3350 17 17 g PO DAILY 03/29/19 Unknown History gram/dose oral powder multivitamin 1 tab PO DAILY 04/02/19 Unknown History gabapentin 300 mg capsule 300 mg PO BIDCM PRN numbness and 04/22/20 Unknown History tingling losartan 25 mg tablet 50 mg PO BID 04/06/24 Unknown History levothyroxine 25 mcg tablet 25 mcg PO DAILY 04/07/24 Unknown History Allergy/AdvReac Type Severity Reaction Status Date / Time amlodipine Allergy Unknown Unknown Verified 12/02/24 11:42 Family History Brother Heart disease Myocardial infarction Surgical History s/p port placement History of colon resection Social History Smoking Status: Former smoker alcohol intake: never ROS ROS ED Constitutional Constitutional ED: Denies chills or fever(s) Eyes Eyes: Denies blurry vision or change in vision ENT ENT ED: Denies rhinorrhea or sore throat Cardiovascular Cardiovascular: Denies chest pain or palpitations Respiratory/Chest Respiratory/Chest: Reports dyspnea; Denies cough Gastrointestinal Gastrointestinal: Denies nausea or vomiting Genitourinary Genitourinary ED: Denies dysuria or hematuria Musculoskeletal Musculoskeletal: Denies back pain or neck pain Integumentary Denies abscess or rash Neurologic Neurologic: Denies headache(s) or weakness Allergic/Immunologic Allergic/Immunologic ED: Denies mouth swelling or urticaria EXAM Physical Exam Const Vital Signs: 12/02/24 11:42 12/02/24 11:55 12/02/24 13:42 Temperature 97.2 F L Temperature Source Axillary Pulse Rate 95 55 L Respiratory Rate 20 H 14 Respiratory Effort Short of Breath Blood Pressure 167/91 H 116/76 Blood Pressure Mean 116 89 Pulse Ox 99 94 Oxygen Delivery Method Room Air Room Air Positive well nourished and well developed General Appearance ED: well developed and NAD HEENT Reports moist mucous membranes Neck supple and no JVD Resp normal respiratory effort and clear to auscultation bilaterally Cardio regular rate and regular rhythm GI non-tender and non-distended Palpation: soft Extremity normal to inspection Neuro oriented x3, CN's II-XII intact bilaterally and no sensory deficits noted [place] Coma Scale: document GCS findings Spontaneous Obeys Commands Oriented 15 Sensorium / Orientation: alert Speech: speech normal Motor Exam: strength 5/5 throughout Psych mental status grossly normal MDM MDM MDM Narrative Medical decision making narrative: Differential diagnosis includes cardiac dysrhythmia, cardiac ischemia, pneumonia, pneumothorax, electrolyte abnormality, pulmonary embolism, and anxiety. EKG will be obtained to assess for cardiac dysrhythmia and cardiac ischemia. CBC will be obtained to assess for leukocytosis and anemia. Basic metabolic profile will be obtained to assess for electrolyte abnormality and renal function. High-sensitivity troponin will be obtained to assess for cardiac ischemia. Urinalysis will be obtained to assess for urinary tract infection. D-dimer will be obtained to assess for pulmonary embolism. If the D-dimer is negative, chest x-ray will be obtained to assess for pneumonia and pneumothorax. If the D-dimer is positive, CT of the chest will be obtained to assess for pulmonary embolism, pneumonia, and pneumothorax. Lab Data Attestation: I reviewed the patient's lab results. Lab results narrative: CBC was reviewed and was within normal limits. Basic metabolic profile was reviewed and was essentially within normal limits. D-dimer was reviewed and was 0.51 which is normal for his age. High-sensitivity troponin was reviewed and was normal at 6. Urinalysis was reviewed. There is no evidence of urinary tract infection or hematuria. Labs: Laboratory Results - last 24 hr 12/02/24 12/02/24 11:54 12:26 WBC 6.5 RBC 5.55 Hgb 16.3 Hct 48.2 MCV 86.8 MCH 29.4 MCHC 33.8 RDW Std Deviation 41.0 RDW Coeff of Megha 13.0 Plt Count 238 MPV 10.3 Immature Gran % (Auto) 0.300 Neut % (Auto) 37.1 L Lymph % (Auto) 51.0 H [place] % (Auto) 7.1 Eos % (Auto) 3.3 Baso % (Auto) 1.2 H Absolute Neuts (auto) 2.4 Absolute Lymphs (auto) 3.29 Nucleated RBC % 0 D-Dimer Quant (PE/DVT) 0.51 H* Sodium 139 Potassium 3.9 Chloride 109 H Carbon Dioxide 24.0 Anion Gap 6 BUN 20 H Creatinine 0.98 Estim Creat Clear Calc 92.85 Est GFR (MDRD) Af Amer 98 Est GFR (MDRD) Non-Af 81 BUN/Creatinine Ratio 20.4 H Glucose 112 H Calcium 9.5 Troponin I High Sens 6 Urine Color Yellow Urine Clarity Clear Urine pH 6.0 Ur Specific [place] 1.020 Urine Protein 30 H Urine Glucose (UA) Normal Urine Ketones Negative Urine Occult Blood Negative Urine Nitrite Negative Urine Bilirubin Negative Urine Urobilinogen Normal Ur Leukocyte Esterase 25 H Urine RBC 0 SEEN Urine WBC 0-5 SEEN Ur Squamous Epith Cells 0 SEEN Urine Bacteria 0 SEEN Urine Mucus 0 SEEN Radiography Diagnostic Testing: Clinical Impression(s) from Imaging Studies Chest X-Ray 01/06/25 13:10 IMPRESSION: No acute cardiopulmonary process identified. Electronically Signed: Magy Vivar MD at 13:47 EST , PA and lateral chest x-ray was obtained. There are 2 views. On my independent interpretation, lung pierce are clear. There is normal cardiac silhouette. Bony thorax is normal. There is no acute process noted. Radiologist also interpreted the x-ray and agrees. EKG Initial EKG: Attestation: I personally reviewed and interpreted this EKG as follows: Interpretation: Sinus Rhythm (61) and No Acute Injury Pattern Comments: EKG was obtained. On my independent interpretation, it showed a normal sinus rhythm with a rate of 61. [place] interval, QRS interval, and QTc intervals were all normal. [place] was normal. There are no acute ST or T wave changes. Prior EKG tracings: available for review Prior: Unchanged (04/06/2024) Treatment and Re-Evaluation :: Patient was advised of his findings. Patient was feeling better on reevaluation. Patient has a HEART score of 3. Patient was advised that this is low risk for acute cardiac event. Patient was instructed to follow-up with his primary care physician in 5 to 7 days. Patient understood and was agreeable with the plan. All questions were answered. Discharge Plan Triage Chief Complaint: Shortness of Breath ED Provider: Ravindra Delgado Dx/Rx/DC Orders Clinical Impression: Dyspnea, HTN (hypertension) Instructions: ED Dyspnea Prescriptions: No Action polyethylene glycol 3350 17 gram/dose powder 17 g PO DAILY multivitamin tablet 1 tab PO DAILY pravastatin 40 MG tablet 40 mg PO QHS gabapentin 300 MG capsule 300 mg PO BIDCM PRN (Reason: numbness and tingling) losartan 25 mg tablet 50 mg PO BID levothyroxine 25 mcg tablet 25 mcg PO DAILY Primary Care Provider: Edwin Donald Chi Referrals: Edwin Donald Chi, MD [Primary Care Provider] - 5-7 Days Print Language: Estonian Disposition Disposition: Home, Self Care
[2024-12-02 12:29] LABS: Bacteria 0 SEEN /hpf (None Seen); Mucous, Urine 0 SEEN /hpf (<or=2+); Red Blood Cells-Urine 0 SEEN /hpf (0-5); Squamous Epithelial Cells - UA 0 SEEN /hpf (0-5)
[2024-12-02 12:30] LABS: Absolute Lymphocyte Count 3.29 X10^3/uL (0.83-4.51); Absolute Neutrophil Count 2.4 X10^3/uL (2.0-7.7); Basophil# 0.08 X10^3/uL; Basophil% 1.2 % (0-1); Eosinophil# 0.21 X10^3/uL; Eosinophils% 3.3 % (0-5); Hematocrit 48.2 % (40-54); Hemoglobin 16.3 g/dL (13.0-16.5); Lymphocyte # 3.29 X10^3/ul (0.83-4.51); Mean Corp Hgb Conc 33.8 g/dL (32-36); Mean Corpuscular Hgb 29.4 pg (27.0-32.0); Mean Corpuscular Volume 86.8 fL (80-94); Mean Platelet Vol. 10.3 fl (6.2-12.0); Monocyte# 0.46 X10^3/uL; Monocyte% 7.1 % (0-10); NRBC Flagged by Analyzer 0 % (0-5); Neutrophil # 2.39 X10^3/uL (2.7-7.7); Neutrophil % 37.1 % (47-70); Platelet Count 238 K/mm3 (150-450); Red Blood Count 5.55 M/mm3 (4.6-6.2); White Blood Count 6.5 K/mm3 (4.4-11.0)
[2024-12-02 12:32] LABS: Color, Urine Yellow (Yellow); Glucose, Dipstick Normal (Normal); Ketone-Dipstick Negative (Negative); Leukocyte Esterase-Dipstick 25 /ul (Negative); Nitrite-Dipstick Negative (Negative); Occult Blood-Urine Negative /ul (Negative); Protein-Dipstick 30 mg/dl (Negative); Urine Bilirubin Dipstick Negative (Negative); Urine Clarity Clear (Clear); Urine Urobilinogen Normal (Normal)
[2024-12-02 12:41] LABS: White Blood Cells 0-5 SEEN /hpf (0-5)
[2024-12-02 12:44] LABS: D-Dimer Quantitative (DVT/PE) 0.51 FEU/ug/m (0.27-0.49)
[2024-12-02 12:46] LABS: Anion Gap 6 (5-15); BUN 20 mg/dL (7-18); BUN/Creat Ratio 20.4 RATIO (10-20); Calcium,Total 9.5 mg/dL (8.5-10.1); Chloride 109 mmol/L (98-107); Creatinine, Serum 0.98 mg/dL (0.70-1.30); EST Glomerular Filtration Rate 81 mL/min (>60); Est Glom Filt Rate - Afr Amer 98 mL/min (>60); Estimated Creatinine Clearance 92.85 ml/min; Glucose 112 mg/dL (74-106); Potassium 3.9 mmol/L (3.5-5.1); Sodium Level 139 mmol/L (136-145); Troponin-I HS 6 pg/mL (3.0-78.0)
--- NOTE | 2024-12-02 13:10 | RAD_ITS ---
HISTORY: Dyspnea. TECHNIQUE: XR Chest 2 Views. COMPARISON: 04/06/2024. FINDINGS: CARDIOMEDIASTINAL BORDERS: Cardiac silhouette within normal limits in size. Mediastinal contour unremarkable. LUNGS: Chronic coarse interstitial markings the lung bases, likely scarring. PLEURA: No pleural effusion or pneumothorax seen. OSSEOUS STRUCTURES: Unremarkable. RAD/Chest PA and Lateral IMPRESSION: No acute cardiopulmonary process identified. Electronically Signed: Magy Vivar MD at 13:47 EST ,
[2024-12-02 13:42] VITALS: BP 116/76; PULSE 55; RESP 14; O2SAT 94
[2024-12-02 15:00] VITALS: BP 136/80; PULSE 57; RESP 16; RESP 18; TEMP 36.6; O2SAT 98
== END 2024-12-02 15:13 | disposition home or self-care (01) ==
PROVIDERS: Emergency Provider Emergency Medicine; PCP Family Medicine Geriatric Medicine; Visit Provider Emergency Medicine
DX: R06.00 Dyspnea, unspecified (principal); I10 Essential (primary) hypertension; E78.5 Hyperlipidemia, unspecified; Z79.899 Other long term (current) drug therapy; Z87.891 Personal history of nicotine dependence
CPT/HCPCS: 71046; 80048; 81001; 84484; 85025; 85379; 93005; 99283; A4216

== ENCOUNTER → 2024-12-03 | Outpatient (CLI) | payer MEDICARE, MEDICAID, SELFPAY ==
[2024-12-03 14:31] LABS: Absolute Lymphocyte Count 2.54 X10^3/uL (0.83-4.51); Absolute Neutrophil Count 2.3 X10^3/uL (2.0-7.7); Basophil# 0.07 X10^3/uL; Basophil% 1.3 % (0-1); Eosinophil# 0.18 X10^3/uL; Eosinophils% 3.3 % (0-5); Hematocrit 47.1 % (40-54); Hemoglobin 15.7 g/dL (13.0-16.5); Lymphocyte # 2.54 X10^3/ul (0.83-4.51); Lymphocyte % 46.2 % (19-41); Mean Corp Hgb Conc 33.3 g/dL (32-36); Mean Corpuscular Volume 86.9 fL (80-94); Monocyte# 0.43 X10^3/uL; Monocyte% 7.8 % (0-10); NRBC Flagged by Analyzer 0 % (0-5); Neutrophil # 2.27 X10^3/uL (2.7-7.7); Neutrophil % 41.2 % (47-70); Platelet Count 226 K/mm3 (150-450); RBC Distribution Width CV 13.2 % (11.6-14.6); RBC Distribution Width SD 41.6 fl (35.1-43.9); Red Blood Count 5.42 M/mm3 (4.6-6.2); White Blood Count 5.5 K/mm3 (4.4-11.0)
[2024-12-03 15:14] LABS: ALB/GLOB Ratio 1.3 RATIO (0.9-2.4); AST(SGOT) 31 U/L (15-37); Alanine Aminotransfer ALT/SGPT 38 U/L (16-61); Albumin, Serum 4.2 g/dL (3.2-5.0); Alkaline Phosphatase 68 U/L (45-117); Anion Gap 4 (5-15); BUN 18 mg/dL (7-18); BUN/Creat Ratio 16.7 RATIO (10-20); Calcium,Total 9.2 mg/dL (8.5-10.1); Chloride 108 mmol/L (98-107); Cholesterol 159 mg/dL (200); Creatinine, Serum 1.08 mg/dL (0.70-1.30); EST Glomerular Filtration Rate 72 mL/min (>60); Est Glom Filt Rate - Afr Amer 88 mL/min (>60); Globulin 3.3 g/dL (2.2-4.2); Glucose 127 mg/dL (74-106); High Density Lipoprotein 52 mg/dL; Potassium 4.4 mmol/L (3.5-5.1); Protein, Total 7.5 g/dL (6.4-8.2); Sodium Level 139 mmol/L (136-145); Triglycerides 115 mg/dL; Very Low Density Lipoprotein 23 mg/dL (5-40)
[2024-12-03 15:16] LABS: Vitamin D,25 Hydroxy 35.3 ng/mL
== END | disposition home or self-care (01) ==
LOC: POLAB3 14:20
PROVIDERS: PCP Family Medicine Geriatric Medicine; Visit Provider Family Medicine Geriatric Medicine
DX: I10 Essential (primary) hypertension (principal); E78.5 Hyperlipidemia, unspecified; E55.9 Vitamin D deficiency, unspecified
CPT/HCPCS: 36415; 80053; 80061; 82306; 84443; 85025

== ENCOUNTER 2024-12-17 17:16 | Emergency (ER) | payer MEDICARE, MEDICAID, SELFPAY ==
[2024-12-17 17:17] VITALS: BP 178/105; PULSE 82; RESP 16; TEMP 37.2; O2SAT 100; BMI 33.7
--- NOTE | 2024-12-17 17:47 | CT_ITS ---
STUDY: CT CERVICAL SPINE WITHOUT CONTRAST REASON FOR EXAM: Male, 69 years old. trauma RADIATION DOSAGE (If Supplied By Facility): CTDIvol = ( ) mGy, DLP = , 1375.53 ) mGycm TECHNIQUE: High resolution transaxial imaging was performed without contrast material. Sagittal and coronal images were reconstructed. Individualized dose optimization techniques were used for this CT. COMPARISON: None FINDINGS: Normal craniovertebral junction. Normal anterior atlantoaxial articulation. Normal odontoid process. Normal cervical lordosis. Normal vertebral bodies and posterior osseous elements. C2-3: Normal endplates. Normal disc height and morphology. Normal central canal and intervertebral neuroforamina. C3-4: Normal endplates. Normal disc height and morphology. Normal central canal and intervertebral neuroforamina. C4-5: Normal endplates. Normal disc height and small central disc protrusion Normal central canal and intervertebral neuroforamina. C5-6: Narrowed disc space and endplate spurring.. Normal central canal and moderate bilateral neural foraminal stenosis secondary to bony hypertrophy C6-7: Normal endplates. Narrowed disc space and normal disc morphology. Normal central canal and intervertebral neuroforamina. C7-T1: Normal endplates. Normal disc height and morphology. Normal central canal and intervertebral neuroforamina. Normal visualized soft tissue structures. CT/Spine Cervical without Contras IMPRESSION: [Mild spondylosis. No acute fracture or other significant bony pathology. Electronically Signed: José Miguel Bojorquez MD at 18:37 EST ,
--- NOTE | 2024-12-17 17:47 | CT_ITS ---
We are attempting to reach an attending provider to discuss findings. An addendum with communication details will be sent when the communication is complete. STUDY: CT BRAIN WITHOUT CONTRAST REASON FOR EXAM: Male, 69 years old. trauma RADIATION DOSAGE (If Supplied By Facility): CTDIvol = ( 44.99 ) mGy, DLP = ( 812.98 ) mGycm TECHNIQUE: Transaxial CT imaging of the brain was performed without administration of intravenous contrast material. Individualized dose optimization techniques were used for this CT. COMPARISON: No relevant priors. FINDINGS: Normal soft tissue structures. Normal calvarium. Calcific plaquing cavernous carotid Normal size ventricles and extra-axial spaces for the patient''s age. Normal white matter tracts of the cerebral hemispheres. Normal basal ganglia and thalami. Normal brainstem. Normal cerebellum. There appears to be very subtle tiny acute parafalcine subdural hemorrhage best visualized on image 32-33/44 on sequence 2. There are no findings of an acute ischemic infarction. Minor mucosal thickening of left maxillary and bilateral ethmoid sinuses CT/Brain/Head without Contrast IMPRESSION: Tiny acute parafalcine subdural hematoma Electronically Signed: José Miguel Bojorquez MD at 18:36 EST ,
--- NOTE | 2024-12-17 17:48 | EDS_ITS ---
HPI History of Present Illness Chief Complaint: Other, Pain/Inj Informant: patient Narrative Narrative: 69-year-old male presenting to the emergency room with neck pain. Patient states that on Monday evening he slipped and fell on the ice striking the back of his head on the ground. He states after about 30 minutes he was feeling okay but has progressively developed a pain diffusely in his neck starting posteriorly radiating around the sides to the front that is worse with movement. He does note a slight occipital headache. He denies any arm or leg symptoms. He is not on any anticoagulants. He is worried about cervical spine fracture. [facility] Medical History Former smoker Pulmonary embolism Migraines Excessive daytime sleepiness Peripheral neuropathy Generalized weakness Degenerative cervical disc Hyperglycemia Hypophosphatemia Hypokalemia Vitamin D deficiency Myalgia Urinary frequency Vertigo Pulmonary embolism Hyperlipidemia Anxiety Prostate cancer Colon cancer HTN (hypertension) Home Medications ?Medication ?Instructions ?Recorded ?Last Taken ?Type pravastatin 40 mg tablet 40 mg PO QHS 01/16/18 Unknown History polyethylene glycol 3350 17 17 g PO DAILY 03/29/19 Unknown History gram/dose oral powder multivitamin 1 tab PO DAILY 04/02/19 Unknown History gabapentin 300 mg capsule 300 mg PO BIDCM PRN numbness and 04/22/20 Unknown History tingling losartan 25 mg tablet 50 mg PO BID 04/06/24 Unknown History levothyroxine 25 mcg tablet 25 mcg PO DAILY 04/07/24 Unknown History Allergy/AdvReac Type Severity Reaction Status Date / Time amlodipine Allergy Unknown Unknown Verified 12/17/24 17:17 Family History Brother Heart disease Myocardial infarction Surgical History s/p port placement History of colon resection Social History Smoking Status: Former smoker alcohol intake: never ROS ROS ED Constitutional Constitutional ED: Denies chills, fever(s) or weight loss Eyes Eyes: Denies change in vision or diplopia ENT ENT ED: Denies ear pain, rhinorrhea or sore throat Cardiovascular Cardiovascular: Denies chest pain, orthopnea, palpitations or racing heartbeat Respiratory/Chest Respiratory/Chest: Denies cough, dyspnea or orthopnea Gastrointestinal Gastrointestinal: Denies abdominal pain, diarrhea, nausea or vomiting Genitourinary Genitourinary ED: Denies dysuria, hematuria or urinary frequency Musculoskeletal Musculoskeletal: Reports neck pain; Denies arthralgias, back pain or myalgias Integumentary Denies abscess or rash Neurologic Neurologic: Reports headache(s); Denies paresthesias or weakness Psychiatric Psychiatric: Denies anxiety, depression, suicidal ideation or suicidal thoughts Endocrine Endocrinology: Denies polydipsia, polyphagia or polyuria Allergic/Immunologic Allergic/Immunologic ED: Denies mouth swelling, tongue swelling or urticaria EXAM Physical Exam Const Vital Signs: 12/17/24 17:17 12/17/24 18:36 Temperature 99 F Temperature Source Oral Pulse Rate 82 Respiratory Rate 16 Respiratory Effort Normal Respiratory Pattern Normal Blood Pressure 178/105 H Blood Pressure Mean 129 Pulse Ox 100 Oxygen Delivery Method Room Air Positive well nourished and well developed General Appearance ED: well developed HEENT Reports normocephalic, head/scalp atraumatic and moist mucous membranes Eyes PERRL and EOMs intact bilaterally Neck full ROM, no lymphadenopathy, supple and no JVD Neck Narrative: Patient with soft tissue tenderness circumferentially of the neck. I do not appreciate any swelling ecchymosis. Resp normal respiratory effort and clear to auscultation bilaterally Cardio regular rate, regular rhythm and no murmurs GI normal to inspection, nondistended, normoactive bowel sounds and non-tender Palpation: soft Back/Spine no CVA tenderness and normal ROM Extremity normal to inspection General Extremety ED: Negative for edema General Extremity: Negative for edema Neuro oriented x3, CN's II-XII intact bilaterally, moves all extremities, no focal motor deficits and no sensory deficits noted Neuro Narrative: Normal strength and sensation of the upper extremities Sensorium / Orientation: alert Motor Exam: strength 5/5 throughout Psych mental status grossly normal Mood & Affect: Negative for depressed or tearful Skin no rashes or lesions noted and no wounds MDM MDM MDM Narrative Medical decision making narrative: Differential diagnosis includes skull fracture cervical spine fracture intracranial hemorrhage hematoma CT of the cervical spine shows no acute findings. CT of the brain demonstrates a tiny acute parafalcine subdural hematoma. He is neurologically intact. I sp linh with [facility] the patient will be transferred there for further evaluation. Patient was updated comfortable with this plan History & Record Review Discussion w/independent historian: Patient Radiography Diagnostic Testing: Clinical Impression(s) from Imaging Studies Brain CT 12/17/24 17:47 IMPRESSION: Tiny acute parafalcine subdural hematoma Electronically Signed: José Miguel Bojorquez MD at 18:36 EST , ADDENDUM: 12/17/24 1855 IMPRESSION: Tiny acute parafalcine subdural hematoma N.B. : The above Results were Read Back by José Miguel Bojorquez MD to Tanner Mcduffie DO, and understanding confirmed on 12/17/2024 18:48:43 (ET). Electronically Signed: José Miguel Bojorquez MD at 18:36 EST , Cervical Spine CT 12/17/24 17:47 IMPRESSION: [Mild spondylosis. No acute fracture or other significant bony pathology. Electronically Signed: José Miguel Bojorquez MD at 18:37 EST , Discharge Plan Disposition Disposition: Acute Care Hospital [facility]
--- NOTE | 2024-12-17 18:36 | ED.RN ---
PT FELL ON ICE ON MONDAY HITTING THE BACK OF HIS HEAD. DENIES LOC. NO SWELLING OR LAC PRESENT. PT C/O NECK PAIN AND WANTED TO MAKE SURE HIS SKULL WAS IN TACT.
[2024-12-17] MEDS: hydrALAZINE 20 MG/ML Vial IV (20:13)
[2024-12-17 20:14] LABS: Absolute Lymphocyte Count 2.73 X10^3/uL (0.83-4.51); Absolute Neutrophil Count 2.4 X10^3/uL (2.0-7.7); Basophil# 0.08 X10^3/uL; Basophil% 1.3 % (0-1); Eosinophil# 0.31 X10^3/uL; Eosinophils% 5.2 % (0-5); Hematocrit 45.6 % (40-54); Lymphocyte # 2.73 X10^3/ul (0.83-4.51); Lymphocyte % 45.4 % (19-41); Mean Corp Hgb Conc 32.9 g/dL (32-36); Mean Corpuscular Hgb 28.9 pg (27.0-32.0); Mean Corpuscular Volume 87.9 fL (80-94); Mean Platelet Vol. 9.9 fl (6.2-12.0); Monocyte# 0.46 X10^3/uL; Monocyte% 7.7 % (0-10); NRBC Flagged by Analyzer 0 % (0-5); Neutrophil # 2.42 X10^3/uL (2.7-7.7); Neutrophil % 40.2 % (47-70); Platelet Count 210 K/mm3 (150-450); RBC Distribution Width CV 13.6 % (11.6-14.6); RBC Distribution Width SD 43.8 fl (35.1-43.9); Red Blood Count 5.19 M/mm3 (4.6-6.2)
[2024-12-17 20:22] LABS: Prothrombin Time (Protime)PT. 13.8 SECONDS (11.7-14.9)
[2024-12-17 20:23] LABS: Partial Thromboplast Time 24.2 Seconds (24.1-36.2)
[2024-12-17 20:35] LABS: Anion Gap 6 (5-15); BUN 19 mg/dL (7-18); BUN/Creat Ratio 18.1 RATIO (10-20); Calcium,Total 9.4 mg/dL (8.5-10.1); Chloride 108 mmol/L (98-107); Creatinine, Serum 1.05 mg/dL (0.70-1.30); EST Glomerular Filtration Rate 75 mL/min (>60); Est Glom Filt Rate - Afr Amer 91 mL/min (>60); Estimated Creatinine Clearance 88.58 ml/min; Glucose 98 mg/dL (74-106); Potassium 4.1 mmol/L (3.5-5.1); Sodium Level 140 mmol/L (136-145)
[2024-12-17 21:15] VITALS: BP 203/98; PULSE 72; RESP 12; TEMP 36.6; O2SAT 98
[2024-12-17 21:17] VITALS: BP 203/93; PULSE 70; RESP 12; O2SAT 98
[2024-12-17] MEDS: Lorazepam 2 MG/ML WCH Syringe 0.5 MG IV (21:21)
--- NOTE | 2024-12-17 21:45 | ED.RN ---
Report called to Tona RN, questions/concerns answered
== END 2024-12-17 21:29 | disposition short-term general hospital (02) ==
PROVIDERS: Emergency Provider Emergency Medicine; PCP Family Medicine Geriatric Medicine; Visit Provider Emergency Medicine
DX: S06.5X0A Traumatic subdural hemorrhage without loss of consciousness, initial encounter (principal); M54.2 Cervicalgia; I10 Essential (primary) hypertension; E78.5 Hyperlipidemia, unspecified; W00.0XXA Fall on same level due to ice and snow, initial encounter; Z79.890 Hormone replacement therapy; Z79.899 Other long term (current) drug therapy; Z87.891 Personal history of nicotine dependence
CPT/HCPCS: 70450; 72125; 80048; 85025; 85610; 85730; 96374; 96375; 99284; A4216

== ENCOUNTER 2025-01-08 14:28 | Emergency (ER) | payer MEDICARE, MEDICAID, SELFPAY ==
[2025-01-08 14:29] VITALS: BP 157/87; PULSE 74; RESP 16; TEMP 36.6; O2SAT 98; BMI 33.0
[2025-01-08 14:36] VITALS: O2SAT 99
--- NOTE | 2025-01-08 15:10 | EX.ED.GENINJ ---
HPI History of Present Illness Chief Complaint: Head Injury [facility] Medical History (Updated 01/08/25 @ 16:[address] Jose Francisco Lieberman, DO) Anxiety Former smoker Pulmonary embolism Migraines Excessive daytime sleepiness Peripheral neuropathy Generalized weakness Degenerative cervical disc Hyperglycemia Hypophosphatemia Hypokalemia Vitamin D deficiency Myalgia Urinary frequency Vertigo Pulmonary embolism Hyperlipidemia Anxiety Prostate cancer Colon cancer HTN (hypertension) Home Medications ?Medication ?Instructions ?Recorded ?Last Taken ?Type pravastatin 40 mg tablet 40 mg PO QHS 01/16/18 Unknown History polyethylene glycol 3350 17 17 g PO DAILY 03/29/19 Unknown History gram/dose oral powder multivitamin 1 tab PO DAILY 04/02/19 Unknown History gabapentin 300 mg capsule 300 mg PO BIDCM PRN numbness and 04/22/20 Unknown History tingling losartan 25 mg tablet 50 mg PO BID 04/06/24 Unknown History levothyroxine 25 mcg tablet 25 mcg PO DAILY 04/07/24 Unknown History buprenorphine 8 mg-naloxone 2 mg tab sublingual 12/17/24 Unknown History sublingual tablet naproxen 500 mg tablet 500 mg PO BID PRN pain 12/17/24 Unknown History Allergy/AdvReac Type Severity Reaction Status Date / Time amlodipine Allergy Unknown Unknown Verified 01/08/25 14:31 Family History Brother Heart disease Myocardial infarction Surgical History s/p port placement History of colon resection Social History (Updated 01/08/25 @ 14:37 by Darby Vasquez) household members: significant other housing: house Smoking Status: Former smoker alcohol intake: never EXAM Physical Exam Const Vital Signs: 01/08/25 14:29 01/08/25 14:36 01/08/25 16:20 Temperature 98 F 97.3 F L Temperature Source Temporal Pulse Rate 74 87 Respiratory Rate 16 20 H Respiratory Effort Normal Non-Labored Respiratory Depth Normal Respiratory Pattern Normal Blood Pressure 157/87 H 138/79 H Blood Pressure Mean 110 98 Pulse Ox 98 99 99 Oxygen Delivery Method Room Air Room Air MDM MDM MDM Narrative Medical decision making narrative: HISTORY OF PRESENT ILLNESS: Causing a brain bleed. Denies loss of consciousness. Denies blood thinners 69-year-old male presents with head trauma. Notes he hit the back of his head on the [place] today. Is concerned because his same area where he fell and hit his head several weeks ago. Just want to make sure he does not have another brain bleed. REVIEW OF SYSTEMS: Pertinent positives: Head trauma Pertinent negatives: LOC, focal weakness, visual disturbance PHYSICAL EXAM: Nursing triage notes reviewed, Vital signs reviewed Primary Survey Airway: Intact Breathing: Bilateral breath sounds Circulation: Palpable bilateral femorals, Palpable bilateral radial, Palpable bilateral DP and Palpable bilateral PT Disability / Spine precautions GCS Score: Eye Openin Verbal Response: 5 Motor Response: 6 Secondary Survey Constitutional: Please see MDM Head: Atraumatic, Midface stable, NO jaw malocclusion, No Cephalohematoma, and No Lacerations noted Cervical spine / Neck: No cervical spine bony tenderness, crepitance, or stepoff deformity Trachea midline Lungs: Clear to auscultation, No asymmetric rise and No crepitus, no flail chest Cardiac: Regular rate and rhythm and No murmurs Abdomen: Soft, Nontender and No rebound Pelvis: Pelvis stable to compression : No evidence of genital injury Back: No midline bony tenderness to thoracic/lumbar/sacral spines Neuro: Alert and orient x 3, at baseline, intact strength and sensation in bilateral upper and lower extremities. Normal gait. Extremities: NO gross Deformities Psych: Normal affect Nursing triage notes reviewed, Vital signs reviewed MEDICAL DECISION MAKING: Chief Complaint: Head trauma External records reviewed: Prior imaging reviewed. Reviewed CT scan from November 2024 which showed tiny acute parafalcine subdural hematoma Factors affecting care: subdural hematoma Social determinants of health: none History obtained from others: none Consults: none [facility] Narrative: Patient was initially hemodynamically stable, afebrile and nontoxic-appearing. Primary secondary trauma survey concerning for the following ICH, cervical spine injury. I considered the following differential diagnosis: ICH, closed head injury, cervical spine injury I obtained a CT scan of the head and cervical spine. Offered Tylenol however patient noted he just took Tylenol prior to arrival. ALL IMAGES (IF OBTAINED) HAVE BEEN PERSONALLY REVIEWED AND INTERPRETED BY MYSELF. CT scan of the head and cervical spine were negative for acute traumatic injury. The patient and/or family, caregivers express understanding. The patient and/or family, caregivers agrees with the plan. Shared decision making: I will have a discussion with the patient and or visitors regarding risk/benefits of further testing or admission. They will be made aware of of the risk/benefits inherent in this decision they will be given the opportunity to voice understanding. Total critical care time today provided was at least 0 minutes. This excludes separately billable procedures. Critical care time (if documented) is secondary to the patient having high probability of clinically significant/life threatening deterioration in the patient's condition which required my urgent intervention. Impression: 1. Closed head injury 2. History of working with Dispo: Discharge This note was generated with [employer] dictation software. It may contain incorrect words, spelling, and punctuation that were not noted in review of the chart prior to signing. Radiography Diagnostic Testing: Clinical Impression(s) from Imaging Studies Brain CT 01/08/25 15:22 IMPRESSION: No acute intracranial hemorrhage, midline shift or mass effect. If symptoms persist, further evaluation with MRI is recommended. Reading Location: [facility] Cervical Spine CT 01/08/25 15:22 IMPRESSION: 1. No acute fracture. 2. Degenerative changes cervical spine as described. Reading Location: [facility] Discharge Plan Triage Chief Complaint: Head Injury ED Provider: Jose Francisco Lieberman Dx/Rx/DC Orders Clinical Impression: CHI (closed head injury) Instructions: ED Concussion Prescriptions: No Action polyethylene glycol 3350 17 gram/dose powder 17 g PO DAILY multivitamin tablet 1 tab PO DAILY pravastatin 40 MG tablet 40 mg PO QHS gabapentin 300 MG capsule 300 mg PO BIDCM PRN (Reason: numbness and tingling) losartan 25 mg tablet 50 mg PO BID levothyroxine 25 mcg tablet 25 mcg PO DAILY naproxen 500 mg tablet 500 mg PO BID PRN (Reason: pain) buprenorphine-naloxone 8-2 mg tablet, sublingual sublingual Primary Care Provider: Edwin Donald Chi Referrals: Edwin Donald Chi, MD [Primary Care Provider] - Activity Restrictions/Additional Instructions: Thank you for trusting us with your care today! Your imaging was negative. No sign of bleeding in the brain or damage to your spine. Please take Tylenol (2 pills, 650 mg) every 6 hours as needed for pain and fever control. Please return to the emergency department if your symptoms change or worsen. Please follow with your primary care physician for further outpatient evaluation and management. Print Language: Ghanaian Disposition Disposition: Home, Self Care Discharge Date/Time: 01/08/25 16:22
--- NOTE | 2025-01-08 15:22 | CT_ITS ---
EXAM: CT Cervical Spine Without Intravenous Contrast CLINICAL INDICATION: TECHNIQUE: Axial computed tomography images of the cervical spine without intravenous contrast. This CT exam was performed using one or more of the following dose reduction techniques: automated exposure control, adjustment of the mA and/or kV according to patient size, and/or use of iterative reconstruction technique. COMPARISON: No relevant prior studies available. FINDINGS: VERTEBRAE: Degenerative facet arthropathy throughout the lower cervical spine. No acute fracture. DISCS/SPINAL CANAL/NEURAL FORAMINA: Degenerative disc disease lower cervical spine. SOFT TISSUES: Unremarkable. CT/Spine Cervical without Contras IMPRESSION: 1. No acute fracture. 2. Degenerative changes cervical spine as described. Reading Location[facility]
--- NOTE | 2025-01-08 15:22 | CT_ITS ---
EXAM: CT Head Without Intravenous Contrast CLINICAL INDICATION: TECHNIQUE: Axial computed tomography images of the head/brain without intravenous contrast. This CT exam was performed using one or more of the following dose reduction techniques: automated exposure control, adjustment of the mA and/or kV according to patient size, and/or use of iterative reconstruction technique. COMPARISON: No relevant prior studies available. FINDINGS: BRAIN AND EXTRA-AXIAL SPACES: No acute intracranial hemorrhage, midline shift or mass effect. If symptoms persist, further evaluation with MRI is recommended. No significant white matter disease. BONES/JOINTS: Unremarkable. No acute fracture. SOFT TISSUES: Unremarkable. SINUSES: Unremarkable as visualized. No acute sinusitis. MASTOID AIR CELLS: Unremarkable as visualized. No mastoid effusion. CT/Brain/Head without Contrast IMPRESSION: No acute intracranial hemorrhage, midline shift or mass effect. If symptoms per sist, further evaluation with MRI is recommended. Reading Location[facility]
[2025-01-08 16:20] VITALS: BP 138/79; PULSE 87; RESP 20; TEMP 36.3; O2SAT 99
== END 2025-01-08 16:22 | disposition home or self-care (01) ==
PROVIDERS: Emergency Provider Emergency Medicine; PCP Family Medicine Geriatric Medicine; Referring Provider Emergency Medicine; Visit Provider Emergency Medicine
DX: S09.90XA Unspecified injury of head, initial encounter (principal); W22.09XA Striking against other stationary object, initial encounter; I10 Essential (primary) hypertension; E78.5 Hyperlipidemia, unspecified; Z79.890 Hormone replacement therapy; Z79.899 Other long term (current) drug therapy; Z87.891 Personal history of nicotine dependence
CPT/HCPCS: 70450; 72125; 99282

== ENCOUNTER 2025-02-17 10:32 | Emergency (ER) | payer MEDICARE, MEDICAID, SELFPAY ==
[2025-02-17 10:33] VITALS: BP 163/107; PULSE 86; RESP 18; TEMP 36.3; O2SAT 99; BMI 32.5
--- NOTE | 2025-02-17 10:47 | ED.RN ---
PT WALKED IN TO THE ED TODAY WITH C/O HIGH BP AND [place] SINCE MONDAY. PT TAKES [place] BID AND HAS BEEN TAKING MED DIRECTED.
--- NOTE | 2025-02-17 11:30 | RAD_ITS ---
EXAM: XR Chest, 1 View CLINICAL INDICATION: HTN TECHNIQUE: Frontal view of the chest. COMPARISON: No relevant prior studies available. FINDINGS: LUNGS AND PLEURAL SPACES: Unremarkable. No consolidation. No pneumothorax. HEART: Unremarkable. No cardiomegaly. MEDIASTINUM: Unremarkable. Normal mediastinal contour. BONES/JOINTS: Unremarkable. No acute fracture. RAD/Chest 1 View (Portable) IMPRESSION: No acute cardiopulmonary process. Reading Location[facility]
--- NOTE | 2025-02-17 11:30 | EKG12_ITS ---
Test Reason : Blood Pressure : */* mmHG Vent. Rate : 64 BPM Atrial Rate : 64 BPM P-R Int : 196 ms QRS Dur : 76 ms QT Int : 390 ms P-R-T Axes : 53 24 23 degrees QTcB Int : 402 ms Normal sinus rhythm Normal ECG Confirmed by NABOR JARA, MAHSA ([id number]), staff editor MARLON PEACOCK ([id number]) on 02/19/2025 8:14:28 AM Referred By: Willy Esteban Confirmed By: MAHSA TOMLIN MD
--- NOTE | 2025-02-17 11:33 | EDS_ITS ---
HPI History of Present Illness Chief Complaint: Hypertension Narrative Narrative: Chief complaint and HPI: HTN. 69-year-old male with past medical history of anxiety, HTN, HLD presents for evaluation of HTN. Patient states that he felt lightheaded over the weekend in which he took his blood pressure. He states on Monday his blood pressure was 180/120. Patient states he took his normal losartan which is 50 mg twice daily. Patient states he checked his blood pressure throughout the day and it fluctuated. He states it became high again and he did not know what to do so he took a Valium. This improved his blood pressure. Patient states he tried to call his primary care physician today and they did not answer so he presents here. On arrival blood pressure was 163/107. On evaluation, blood pressure is 140/87. Currently denying any lightheadedness, headache, chest pain, shortness of breath, abdominal pain, nausea, vomiting. Review of systems: See HPI Medications: As listed on the chart Allergies: As listed on the chart PFSH: Per chart Vital signs: As listed on the chart. Reviewed. Physical exam: Gen: A&O x3, NAD Head: Normocephalic, atraumatic Eyes: No sclera icterus, conjunctiva clear ENT: Moist mucous membranes Neck: Trachea midline, No JVD CV: RRR, no murmurs, no peripheral edema Resp: Lungs CTA BL, no w/r/c GI: Abd soft, non-distended, non-tender, no r/r/g Musc: Full ROM, no deformity Skin: Warm, dry Neuro: Alert, oriented, grossly intact, sensation intact Psych: Cooperative, appropriate mood and affect [facility] Medical History Anxiety Former smoker Pulmonary embolism Migraines Excessive daytime sleepiness Peripheral neuropathy Generalized weakness Degenerative cervical disc Hyperglycemia Hypophosphatemia Hypokalemia Vitamin D deficiency Myalgia Urinary frequency Vertigo Pulmonary embolism Hyperlipidemia Anxiety Prostate cancer Colon cancer HTN (hypertension) Home Medications ?Medication ?Instructions ?Recorded ?Last Taken ?Type pravastatin 40 mg tablet 40 mg PO QHS 01/16/18 History polyethylene glycol 3350 17 17 g PO DAILY 03/29/19 Unk nown History gram/dose oral powder multivitamin 1 tab PO DAILY 04/02/1901/26 History gabapentin 300 mg capsule 300 mg PO BIDCM PRN numbness and 04/22/20 02/16/25 History tingling levothyroxine 25 mcg tablet 25 mcg PO DAILY 04/07/24 0 02/16/25 History buprenorphine 8 mg-naloxone 2 mg 0.25 tab sublingual T ID 12/17/24 02/17/25 History sublingual tablet naproxen 500 mg tablet 500 mg PO BID PRN pain 12/17 Unknown History clonidine HCl 0.1 mg tablet 0.1 mg PO Q8H PRN hyperten sive 3 02/17/25 Unknown Rx days #9 tabs losartan 50 mg tablet 50 mg PO BID 02/17/25 History ondansetron HCl 4 mg tablet 4 mg PO Q6H PRN PRN nausea 02/17/25 Unknown History Allergy/AdvReac Type Severity Reaction Status Date / Time amlodipine Allergy Unknown Unknown Verified 02/17/25 19:59 Family History Brother Heart disease Myocardial infarction Surgical History s/p port placement History of colon resection Social History (Updated 01/08/25 @ 14:37 by Darby Vasquez) household members: significant other housing: house Smoking Status: Former smoker alcohol intake: never EXAM Physical Exam Const Vital Signs: 02/17/25 10:33 02/17/25 10:45 02/17/25 12:32 Temperature 97.4 F L Temperature Source Oral Pulse Rate 86 66 Respiratory Rate 18 16 Respiratory Effort Normal Respiratory Pattern Normal Blood Pressure 163/107 H 148/93 H Blood Pressure Mean 125 111 Pulse Ox 99 97 Oxygen Delivery Method Room Air 02/17/25 13:33 02/17/25 14:10 02/17/25 14:24 Temperature Temperature Source Pulse Rate 68 65 64 Respiratory Rate 16 16 16 Respiratory Effort Respiratory Pattern Blood Pressure 184/99 H 159/124 H 155/97 H Blood Pressure Mean 127 135 116 Pulse Ox 97 96 97 Oxygen Delivery Method Room Air Room Air Room Air 02/17/25 14:45 Temperature 97.7 F L Temperature Source Pulse Rate 64 Respiratory Rate 16 Respiratory Effort Respiratory Pattern Blood Pressure 155/97 H Blood Pressure Mean 116 Pulse Ox 99 Oxygen Delivery Method MDM MDM MDM Narrative Medical decision making narrative: 69-year-old male with past medical history of anxiety, HTN, HLD presents for evaluation of HTN. Currently asymptomatic but prior had some lightheadedness. On arrival, blood pressure 163/107. Patient is currently 140/87 in the room. This was without treatment. Will continue to monitor. Although patient is asymptomatic he states that his blood pressure is usually controlled therefore we will perform basic labs to assess for hypertension emergency and ACS. differential diagnosis includes but is not limited to asymptomatic hypertension, hypertension urgency, hypertension emergency. Cardiac workup ordered including chest x-ray. Overall, patient had a prolonged stay here in the emergency department secondary to labs unable to be resulted. The lab machine was not working correctly therefore labs were delayed. EKG and chest x-ray reviewed see below. CBC without leukocytosis. Patient has mild hemoconcentration at 16.6. BMP unremarkable. Troponin unremarkable x 2. Patient's blood pressure fluctuated throughout the stay here in the emergency department. He ultimately was given 10 mg IV hydralazine with improvement in blood pressure. He remained asymptomatic here in the emergency department. Given patient's fluctuation of blood pressure, I do not feel comfortable increasing his losartan or adding on another medication therefore instead we will give clonidine as needed for SBP greater than 175. Patient was educated that he needs to monitor his blood pressure at home. He was educated that he needs to call his PCP office as soon as possible to make an appointment and let them know that his blood pressure is not controlled. He confirmed understand the plan. Patient is able to discharge home. Return precautions explained. EKG: Interpreted by me/EM physician: EKG normal sinus rhythm with heart rate of 64. No acute ischemic changes Diagnostic: Interpreted by me/EM physician: Chest x-ray not pneumonia, effusion, cardiomegaly, pneumothorax Impression: 1. Hypertension with history of hypertension Lab Data Labs: Laboratory Results - last 24 hr 02/17/25 02/17/25 10:50 13:30 WBC 5.2 RBC 5.54 Hgb 16.6 H Hct 48.4 MCV 87.4 MCH 30.0 MCHC 34.3 RDW Std Deviation 41.3 RDW Coeff of Megha 12.8 Plt Count 221 MPV 10.8 Immature Gran % (Auto) 0.000 Neut % (Auto) 43.0 L Lymph % (Auto) 46.2 H [place] % (Auto) 6.7 Eos % (Auto) 2.9 Baso % (Auto) 1.2 H Absolute Neuts (auto) 2.2 Absolute Lymphs (auto) 2.40 Nucleated RBC % 0 Sodium 139 Potassium 4.4 Chloride 106 Carbon Dioxide 20.5 L Anion Gap 13 BUN 15 Creatinine 0.96 Estim Creat Clear Calc 95.16 Est GFR (MDRD) Non-Af 87 BUN/Creatinine Ratio 15.8 Glucose 103 H Calcium 9.8 Troponin T High Sens 7 Troponin T Hi Sens 2 Hr 7 Radiography Diagnostic Testing: Clinical Impression(s) from Imaging Studies Chest X-Ray 02/17/25 11:30 IMPRESSION: No acute cardiopulmonary process. Reading Location: [facility] Discharge Plan Triage Chief Complaint: Hypertension ED Provider: Willy Esteban Dx/Rx/DC Orders Clinical Impression: HTN (hypertension) Instructions: ED Hypertension, Established, ED High Blood Pressure Hypertension Prescriptions: New clonidine HCl 0.1 mg tablet 0.1 mg PO Q8H PRN (Reason: hypertensive ) 3 Days Qty: 9 0RF Rx Instructions: Take this if systolic blood pressure is greater than 175 No Action polyethylene glycol 3350 17 gram/dose powder 17 g PO DAILY multivitamin tablet 1 tab PO DAILY pravastatin 40 MG tablet 40 mg PO QHS gabapentin 300 MG capsule 300 mg PO BIDCM PRN (Reason: numbness and tingling) levothyroxine 25 mcg tablet 25 mcg PO DAILY naproxen 500 mg tablet 500 mg PO BID PRN (Reason: pain) buprenorphine-naloxone 8-2 mg tablet, sublingual 0.25 tab sublingual TID losartan 50 mg tablet 50 mg PO BID ondansetron HCl 4 mg tablet 4 mg PO Q6H PRN PRN (Reason: nausea) Primary Care Provider: Edwin oDnald Chi Referrals: Edwin Donald Chi, MD [Primary Care Provider] - 3-5 Days Activity Restrictions/Additional Instructions: Call your primary care physician in the morning to let them know about your blood pressure. Return back to the ED if symptoms change or worsen. Continue to monitor your blood pressure at home. Print Language: Hebrew Disposition Disposition: Home, Self Care Discharge Date/Time: 02/17/25 14:47
[2025-02-17 11:39] LABS: Absolute Neutrophil Count 2.2 X10^3/uL (2.0-7.7); Basophil# 0.06 X10^3/uL; Basophil% 1.2 % (0-1); Eosinophil# 0.15 X10^3/uL; Eosinophils% 2.9 % (0-5); Hematocrit 48.4 % (40-54); Hemoglobin 16.6 g/dL (13.0-16.5); Lymphocyte % 46.2 % (19-41); Mean Corp Hgb Conc 34.3 g/dL (32-36); Mean Corpuscular Volume 87.4 fL (80-94); Mean Platelet Vol. 10.8 fl (6.2-12.0); Monocyte# 0.35 X10^3/uL; Monocyte% 6.7 % (0-10); NRBC Flagged by Analyzer 0 % (0-5); Neutrophil # 2.24 X10^3/uL (2.7-7.7); Platelet Count 221 K/mm3 (150-450); RBC Distribution Width CV 12.8 % (11.6-14.6); RBC Distribution Width SD 41.3 fl (35.1-43.9); Red Blood Count 5.54 M/mm3 (4.6-6.2); White Blood Count 5.2 K/mm3 (4.4-11.0)
[2025-02-17 12:32] VITALS: BP 148/93; PULSE 66; RESP 16; O2SAT 97
[2025-02-17 13:33] VITALS: BP 184/99; PULSE 68; RESP 16; O2SAT 97
[2025-02-17 13:57] LABS: Troponin T High Sensitivity 7 ng/L (<=22)
[2025-02-17 13:59] LABS: Troponin T High Sens 2 HR 7 ng/L (<=22)
[2025-02-17 14:06] LABS: Anion Gap 13 (5-15); BUN 15 mg/dL (4-19); BUN/Creat Ratio 15.8 RATIO (10-20); Calcium,Total 9.8 mg/dL (7.6-11.0); Carbon Dioxide 20.5 mmol/L (21.0-32.0); Chloride 106 mmol/L (98-108); Creatinine, Serum 0.96 mg/dL (0.70-1.20); EST Glomerular Filtration Rate 87 (>60); Estimated Creatinine Clearance 95.16 ml/min (50-250); Glucose 103 mg/dL (70-99); Potassium 4.4 mmol/L (3.3-5.1); Sodium Level 139 mmol/L (133-145)
[2025-02-17 14:10] VITALS: BP 159/124; PULSE 65; RESP 16; O2SAT 96
[2025-02-17] MEDS: hydrALAZINE 20 MG/ML Vial 10 MG IV (14:22)
[2025-02-17 14:24] VITALS: BP 155/97; PULSE 64; RESP 16; O2SAT 97
[2025-02-17 14:45] VITALS: BP 155/97; PULSE 64; RESP 16; TEMP 36.5; O2SAT 99
== END 2025-02-17 14:47 | disposition home or self-care (01) ==
PROVIDERS: Emergency Provider Surgery; PCP Family Medicine Geriatric Medicine; Referring Provider Surgery; Visit Provider Surgery
DX: I10 Essential (primary) hypertension (principal); F41.9 Anxiety disorder, unspecified; E78.5 Hyperlipidemia, unspecified; Z79.890 Hormone replacement therapy; Z79.899 Other long term (current) drug therapy; Z87.891 Personal history of nicotine dependence
CPT/HCPCS: 71045; 80048; 84484; 85025; 93005; 96374; 99283; A4216

== ENCOUNTER 2025-02-17 19:54 | Emergency (ER) | payer MEDICARE, SELFPAY ==
[2025-02-17 19:55] VITALS: BP 179/96; PULSE 92; RESP 18; TEMP 36.6; O2SAT 98; BMI 32.9
[2025-02-17 20:55] VITALS: BP 170/96
[2025-02-17 21:33] VITALS: BP 156/95
[2025-02-17] MEDS: Ondansetron ODT 4 MG Tablet PO (21:33)
--- NOTE | 2025-02-17 21:40 | CT_ITS ---
PROCEDURE: BRAIN/HEAD WITHOUT CONTRAST 02/17/2025 REASON FOR EXAM: HEAD TRAUMA, HEADACHE AND PRIOR HISTORY BLEED TECHNIQUE: CT images of the brain were acquired without intravenous contrast. Multiplanar reformats were acquired. COMPARISON: CT brain 01/08/2025 and 12/17/2024 FINDINGS: * ACUTE: No acute infarct or hemorrhage. No mass effect or herniation. * BRAIN PARENCHYMA: Signal intensities are within normal limits for age. * VENTRICLES/EXTRA-AXIAL SPACES: No hydrocephalus or extra-axial fluid collections. * EXTRACRANIAL STRUCTURES: Visualized osseous structures are normal. Soft tissues are normal. CT/Brain/Head without Contrast IMPRESSION: No acute intracranial abnormality. Reading Location: [facility]
[2025-02-17 23:00] VITALS: BP 139/84; PULSE 64; RESP 16
--- NOTE | 2025-02-18 00:03 | EX.ED.DYSGE1 ---
HPI History of Present Illness Chief Complaint: Hypertension Detail of Chief Complaint: Elevated blood pressure 180 systolic and head trauma Informant: patient Onset/Context/Timing Onset: Today (Patient was seen today. He did not mention to the doctor that he hit his head and has prior history of subdural hematoma) and Days (Head trauma a couple of days ago. Garage door struck him on the top of the head. He has had headache.) Context: Sudden Onset Timing: Continuous and Waxes and wanes Quality: Headache due to trauma Location: Vertex Current Severity: Mild Maximum Severity: Moderate Worsened by: Believes it is associated with his blood pressure readings. Relieved by: Nothing Associated Symptoms Associated Symptoms: Nothing Narrative Narrative: Patient is a 59-year-old male. He has history of hypertension, hypothyroidism and hypercholesterolemia who presents because of elevated blood pressure of systolic of 180. He states he was seen earlier today he did not mention to the doctor that saw him this morning that he hit his head and has a headache. states he has been forgetful since he hit his head. He has a history of a subdural hematoma due to a fall a couple of months ago. He denies double vision, blurred vision or loss of vision. He denies neck pain. Denies paresthesia, anesthesia or motor weakness. He denies cardiac or respiratory symptoms. He has not had minimal nausea. He said no vomiting or diarrhea. He denies being on any anticoagulant or antithrombotic. He states he has not missed any of his clonidine doses. He is also on losartan 50 mg twice daily. Prior similar symptoms: Yes (Subdural hematoma due to blunt trauma) Recent Illness/Hospitalization: Yes (Today in the emergency department) [facility] Medical History Anxiety Former smoker Pulmonary embolism Migraines Excessive daytime sleepiness Peripheral neuropathy Generalized weakness Degenerative cervical disc Hyperglycemia Hypophosphatemia Hypokalemia Vitamin D deficiency Myalgia Urinary frequency Vertigo Pulmonary embolism Hyperlipidemia Anxiety Prostate cancer Colon cancer HTN (hypertension) Home Medications ?Medication ?Instructions ?Recorded ?Last Taken ?Type pravastatin 40 mg tablet 40 mg PO QHS 01/16/18 02/17/25 History polyethylene glycol 3350 17 17 g PO DAILY 03/29/19 Unknown History gram/dose oral powder multivitamin 1 tab PO DAILY 04/02/19 02/17/25 History gabapentin 300 mg capsule 300 mg PO BIDCM PRN numbness and 04/22/20 02/16/25 History tingling levothyroxine 25 mcg tablet 25 mcg PO DAILY 04/07/24 02/16/25 History buprenorphine 8 mg-naloxone 2 mg 0.25 tab sublingual TID 12/17/24 02/17/25 History sublingual tablet naproxen 500 mg tablet 500 mg PO BID PRN pain 12/17/24 Unknown History clonidine HCl 0.1 mg tablet 0.1 mg PO Q8H PRN hypertensive 3 02/17/25 Unknown Rx days #9 tabs losartan 50 mg tablet 50 mg PO BID 02/17/25 02/17/25 History ondansetron HCl 4 mg tablet 4 mg PO Q6H PRN PRN nausea 02/17/25 Unknown History Allergy/AdvReac Type Severity Reaction Status Date / Time amlodipine Allergy Unknown Unknown Verified 02/17/25 19:59 Family History Brother Heart disease Myocardial infarction Surgical History s/p port placement History of colon resection Social History household members: significant other housing: house Smoking Status: Former smoker alcohol intake: never ROS ROS ED Constitutional Constitutional ED: Denies chills, fever(s), subjective, sweats or weight loss Eyes Eyes: Denies blurry vision, change in vision or diplopia ENT ENT ED: Denies ear pain or rhinorrhea Cardiovascular Cardiovascular: Denies chest pain or palpitations Respiratory/Chest Respiratory/Chest: Denies cough, dyspnea or dyspnea on exertion Gastrointestinal Gastrointestinal: Reports nausea; Denies abdominal pain, melena or vomiting Genitourinary Genitourinary ED: Denies dysuria, hematuria or urinary frequency Musculoskeletal Musculoskeletal: Denies back pain, myalgias or neck pain Integumentary Denies rash Neurologic Neurologic: Reports headache(s); Denies paresthesias or weakness Endocrine Endocrinology: Denies cold intolerance or heat intolerance Hematologic/Lymphatic Hematologic/Lymphatic: Reports systems reviewed and no addt'l complaints, except as documented EXAM Physical Exam Const Vital Signs: 02/17/25 19:55 02/17/25 20:51 02/17/25 20:55 Temperature 97.9 F Temperature Source Temporal Pulse Rate 92 Respiratory Rate 18 Respiratory Effort Normal Non-Labored Respiratory Pattern Normal Blood Pressure 179/96 H 170/96 H Blood Pressure Mean 123 120 Pulse Ox 98 Oxygen Delivery Method Room Air 02/17/25 21:33 02/17/25 23:00 Temperature Temperature Source Pulse Rate 64 Respiratory Rate 16 Respiratory Effort Respiratory Pattern Blood Pressure 156/95 H 139/84 H Blood Pressure Mean 115 102 Pulse Ox Oxygen Delivery Method Positive well nourished and well developed General Appearance ED: well developed and NAD; Negative for cyanotic, diaphoretic or pallor HEENT Reports TM's clear and moist mucous membranes HEENT Narrative: Patient has a contusion vertex of his head. No palp depression. No clinical signs of basilar skull fracture. Tympanic Membrane ED: Yes TM's clear Eyes PERRL and EOMs intact bilaterally General Eye ED: Negative for pale conjunctiva or scleral icterus Neck no lymphadenopathy, supple and no JVD Resp normal respiratory effort and clear to auscultation bilaterally Cardio regular rate, regular rhythm, S1 normal heart sound and S2 normal heart sound GI normal to inspection, nondistended, normoactive bowel sounds, non-tender and non-distended; Negative for hepatosplenomegaly Back/Spine no CVA tenderness Extremity normal to inspection Neuro oriented x3 and CN's II-XII intact bilaterally Sensorium / Orientation: alert Psych mental status grossly normal Skin no rashes or lesions noted, No no wounds and skin turgor normal General Skin Exam: elasticity normal; Negative for jaundice or pallor MDM MDM MDM Narrative Medical decision making narrative: In light of patient having traumatic subdural hematoma recently we will obtain CT of the head since he had head trauma with a garage door striking the top of his head. He is also forgetful. At the minimum he has a concussion. Per the [place] CT head rule he does warrant a CAT scan. With regards to his blood pressure he was monitored and improved without treatment. In my opinion nothing needs to be done. His most recent blood pressure reading is 139/84 without treatment. Radiography Diagnostic Testing: Clinical Impression(s) from Imaging Studies Brain CT 02/17/25 21:40 IMPRESSION: No acute intracranial abnormality. Reading Location: [facility] The CT of the head was independent reviewed by me. I agree there is no evidence of subdural hematoma, epidural hematoma, subarachnoid hemorrhage or intraparenchymal contusion. There is no fluid noted in the sinuses. There is no evidence of fracture. Discharge Plan Triage Chief Complaint: Hypertension ED Provider: Luke Wallace Dx/Rx/DC Orders Clinical Impression: Concussion with loss of consciousness, HTN (hypertension), Hyperlipidemia, Headache Instructions: ED Head Injury (Adult) Prescriptions: No Action polyethylene glycol 3350 17 gram/dose powder 17 g PO DAILY multivitamin tablet 1 tab PO DAILY pravastatin 40 MG tablet 40 mg PO QHS gabapentin 300 MG capsule 300 mg PO BIDCM PRN (Reason: numbness and tingling) levothyroxine 25 mcg tablet 25 mcg PO DAILY naproxen 500 mg tablet 500 mg PO BID PRN (Reason: pain) buprenorphine-naloxone 8-2 mg tablet, sublingual 0.25 tab sublingual TID losartan 50 mg tablet 50 mg PO BID ondansetron HCl 4 mg tablet 4 mg PO Q6H PRN PRN (Reason: nausea) clonidine HCl 0.1 mg tablet 0.1 mg PO Q8H PRN (Reason: hypertensive ) 3 Days Qty: 9 0RF Rx Instructions: Take this if systolic blood pressure is greater than 175 Primary Care Provider: Edwin Donald Chi Referrals: Edwin Donald Chi, MD [Primary Care Provider] - 1-2 Weeks Activity Restrictions/Additional Instructions: Recommend make an appointment with Dr. Donald to have your blood pressure reassessed and possible adjustment of your meds in 1 to 2 weeks. Print Language: Welsh Disposition Disposition: Home, Self Care
== END 2025-02-18 00:18 | disposition home or self-care (01) ==
PROVIDERS: Emergency Provider Emergency Medicine; PCP Family Medicine Geriatric Medicine; Visit Provider Emergency Medicine
DX: S06.0X9A Concussion with loss of consciousness of unspecified duration, initial encounter (principal); W22.09XA Striking against other stationary object, initial encounter; I10 Essential (primary) hypertension; E78.00 Pure hypercholesterolemia, unspecified; E03.9 Hypothyroidism, unspecified; Z79.890 Hormone replacement therapy; Z79.899 Other long term (current) drug therapy; Z87.891 Personal history of nicotine dependence
CPT/HCPCS: 70450; 99282

== ENCOUNTER 2025-02-27 03:35 | Emergency (ER) | payer MEDICARE, SELFPAY ==
[2025-02-27 03:37] VITALS: PULSE 61; RESP 18; TEMP 36.6; O2SAT 98; BMI 33.3
[2025-02-27 04:01] VITALS: BP 186/96; PULSE 54; RESP 18; O2SAT 97
--- NOTE | 2025-02-27 04:03 | EKG12_ITS ---
Test Reason : HTN Blood Pressure : */* mmHG Vent. Rate : 54 BPM Atrial Rate : 54 BPM P-R Int : 206 ms QRS Dur : 88 ms QT Int : 430 ms P-R-T Axes : 43 43 55 degrees QTcB Int : 407 ms Sinus bradycardia Otherwise normal ECG Confirmed by NABOR JARA, MAHSA ([id number]), publications editor ORION SINCLAIR ([id number]) on 02/28/2025 9:22:14 AM Referred By: BESSY Confirmed By: MAHSA TOMLIN MD
[2025-02-27] MEDS: hydrALAZINE 20 MG/ML Vial 10 MG IV (04:11)
[2025-02-27] MEDS: diazePAM 2 MG Tablet PO (04:11)
[2025-02-27 04:21] LABS: Absolute Lymphocyte Count 2.47 X10^3/uL (0.83-4.51); Absolute Neutrophil Count 2.2 X10^3/uL (2.0-7.7); Basophil# 0.08 X10^3/uL; Basophil% 1.5 % (0-1); Eosinophil# 0.24 X10^3/uL; Eosinophils% 4.5 % (0-5); Hematocrit 41.4 % (40-54); Hemoglobin 14.2 g/dL (13.0-16.5); Lymphocyte # 2.47 X10^3/ul (0.83-4.51); Lymphocyte % 46.5 % (19-41); Mean Corp Hgb Conc 34.3 g/dL (32-36); Mean Corpuscular Volume 87.3 fL (80-94); Mean Platelet Vol. 10.2 fl (6.2-12.0); Monocyte# 0.36 X10^3/uL; Monocyte% 6.8 % (0-10); NRBC Flagged by Analyzer 0 % (0-5); Neutrophil # 2.15 X10^3/uL (2.7-7.7); Neutrophil % 40.5 % (47-70); Platelet Count 197 K/mm3 (150-450); RBC Distribution Width CV 12.8 % (11.6-14.6); RBC Distribution Width SD 40.6 fl (35.1-43.9); Red Blood Count 4.74 M/mm3 (4.6-6.2); White Blood Count 5.3 K/mm3 (4.4-11.0)
[2025-02-27 04:43] VITALS: BP 138/69; PULSE 52; RESP 18; O2SAT 96
[2025-02-27 04:49] LABS: Anion Gap 11 (5-15); BUN 19 mg/dL (4-19); BUN/Creat Ratio 18.6 RATIO (10-20); Carbon Dioxide 23.1 mmol/L (21.0-32.0); Chloride 108 mmol/L (98-108); Creatinine, Serum 1.04 mg/dL (0.70-1.20); EST Glomerular Filtration Rate 79 (>60); Glucose 112 mg/dL (70-99); Potassium 4.1 mmol/L (3.3-5.1); Sodium Level 142 mmol/L (133-145)
[2025-02-27 05:12] VITALS: BP 118/77; PULSE 51; RESP 18; TEMP 36.6; O2SAT 97
--- NOTE | 2025-02-27 05:12 | EX.ED.DYSGE1 ---
HPI History of Present Illness Chief Complaint: Hypertension Informant: patient Narrative Narrative: Patient is a 69-year-old male with past medical history of hypertension generalized anxiety disorder hyperlipidemia and hypothyroidism. He was seen roughly 1 week ago secondary to hypertension. His workup at that time was negative for signs of endorgan damage. He follow-up with his family doctor and his doctor change his medications to valsartan metoprolol and clonidine if his blood pressure is elevated above 175. Patient states he took his medications as directed. He denies any excessive stimulant use or illicit drug use. He states that he tried to go to bed but had a headache and therefore checked his blood pressure and it was elevated. He states he took one of the clonidine pills and waited 15 to 20 minutes and rechecked and his pressure was still high and secondary to this he comes in for evaluation. He denies any chest pain or shortness of breath. He denies any abdominal pain. He states that his headache has improved upon arrival to the ER [facility] Medical History Anxiety Former smoker Pulmonary embolism Migraines Excessive daytime sleepiness Peripheral neuropathy Generalized weakness Degenerative cervical disc Hyperglycemia Hypophosphatemia Hypokalemia Vitamin D deficiency Myalgia Urinary frequency Vertigo Pulmonary embolism Hyperlipidemia Anxiety Prostate cancer Colon cancer HTN (hypertension) Home Medications ?Medication ?Instructions ?Recorded ?Last Taken ?Type pravastatin 40 mg tablet 40 mg PO QHS 01/16/18 02/17/25 History polyethylene glycol 3350 17 17 g PO DAILY 03/29/19 Unknown History gram/dose oral powder multivitamin 1 tab PO DAILY 04/02/19 02/17/25 History gabapentin 300 mg capsule 300 mg PO BIDCM PRN numbness and 04/22/20 02/16/25 History tingling levothyroxine 25 mcg tablet 25 mcg PO DAILY 04/07/24 02/16/25 History buprenorphine 8 mg-naloxone 2 mg 0.25 tab sublingual TID 12/17/24 02/17/25 History sublingual tablet naproxen 500 mg tablet 500 mg PO BID PRN pain 12/17/24 Unknown History clonidine HCl 0.1 mg tablet 0.1 mg PO Q8H PRN hypertensive 3 02/17/25 Unknown Rx days #9 tabs losartan 50 mg tablet 50 mg PO BID 02/17/25 02/17/25 History ondansetron HCl 4 mg tablet 4 mg PO Q6H PRN PRN nausea 02/17/25 Unknown History clonidine HCl 0.1 mg tablet 0.1 mg PO BID 14 days #28 tabs 02/27/25 Unknown Rx metoprolol succinate 25 mg 25 mg PO QHS 02/27/25 Unknown History tablet,extended release 24 hr Allergy/AdvReac Type Severity Reaction Status Date / Time amlodipine Allergy Unknown Unknown Verified 02/17/25 19:59 Family History Brother Heart disease Myocardial infarction Surgical History s/p port placement History of colon resection Social History household members: significant other housing: house Smoking Status: Former smoker alcohol intake: never ROS ROS ED Constitutional Constitutional ED: Denies chills or fever(s) Eyes Eyes: Denies blurry vision or change in vision ENT ENT ED: Denies sore throat Cardiovascular Cardiovascular: Denies chest pain, palpitations or racing heartbeat Respiratory/Chest Respiratory/Chest: Denies cough or dyspnea Gastrointestinal Gastrointestinal: Denies abdominal pain, diarrhea, nausea or vomiting Genitourinary Genitourinary ED: Denies dysuria Musculoskeletal Musculoskeletal: Denies myalgias Integumentary Denies rash Neurologic Neurologic: Reports headache(s) Psychiatric Psychiatric: Reports anxiety Hematologic/Lymphatic Hematologic/Lymphatic: Denies easy bleeding or easy bruising EXAM Physical Exam Const Vital Signs: 02/27/25 03:37 02/27/25 03:37 02/27/25 04:01 Temperature 97.8 F Temperature Source Oral Pulse Rate 61 54 L Respiratory Rate 18 18 Respiratory Effort Normal Respiratory Pattern Normal Blood Pressure 186/96 H Blood Pressure Mean 126 Pulse Ox 98 97 Oxygen Delivery Method Room Air Room Air 02/27/25 04:43 Temperature Temperature Source Pulse Rate 52 L Respiratory Rate 18 Respiratory Effort Respiratory Pattern Blood Pressure 138/69 H Blood Pressure Mean 92 Pulse Ox 96 Oxygen Delivery Method Room Air Positive well nourished and well developed General Appearance ED: well developed; Negative for pallor HEENT HEENT Narrative: Normocephalic atraumatic Eyes PERRL and EOMs intact bilaterally General Eye ED: Negative for scleral icterus Neck supple Neck Narrative: No nuchal rigidity or meningeal signs Resp normal respiratory effort and clear to auscultation bilaterally Cardio regular rhythm Rate: bradycardia and other Other Details: Bradycardic rate with regular rhythm No murmurs rubs or gallop Radial and carotid pulses are equal and symmetric No carotid bruit noted GI normal to inspection, nondistended, normoactive bowel sounds, non-tender, non-distended and no masses GI Narrative: No voluntary guarding or rigidity or pulsatile mass Auscultation: normoactive bowel sounds Palpation: soft Extremity normal to inspection Neuro oriented x3, CN's II-XII intact bilaterally and no sensory deficits noted Neuro Narrative: GCS of 15 Cranial nerves II through XII are grossly intact without focal neurologic deficit No pronator drift no dysmetria no truncal ataxia NIH stroke scale score of 0 Sensorium / Orientation: alert Motor Exam: strength 5/5 throughout Psych Mood & Affect: anxious Skin no rashes or lesions noted and no wounds General Skin Exam: Negative for jaundice or pallor MDM MDM MDM Narrative Medical decision making narrative: Patient arrived to the ER hypertensive but otherwise with stable vitals. He has a known history of hypertension and was recently evaluated for this. In order to check for signs of endorgan damage such as ACS or acute kidney injury and EKG and basic labs were obtained. Labs revealed no signs of BEV or clinically significant electrolyte abnormality. EKG revealed sinus bradycardia without ischemic changes. Patient had a head CT on February 18 which was normal and his neurologic exam at this time is normal as well and therefore do not feel the need for repeat head CT as I have low concern for a spontaneous subarachnoid or subdural hemorrhage and the patient does not have any signs of hypertensive encephalopathy. Secondary to his persistent hypertension despite taking his home medication I did elect to provide 10 mg of IV hydralazine and as part of his hypertension seem to stem from an anxiety state he was given 2 mg of oral Valium. His blood pressure improved to approximately 130/75. He remained neurologically intact. He reported resolution of his headache. Therefore at this time as he has no signs of endorgan damage and his blood pressure has improved with treatment there is no need for further evaluation in the ER and is otherwise safe for discharge. History & Record Review Discussion w/independent historian: Patient Lab Data Attestation: I reviewed the patient's lab results. Labs: Laboratory Results - last 24 hr 02/27/25 04:10 WBC 5.3 RBC 4.74 Hgb 14.2 Hct 41.4 MCV 87.3 MCH 30.0 MCHC 34.3 RDW Std Deviation 40.6 RDW Coeff of Megha 12.8 Plt Count 197 MPV 10.2 Immature Gran % (Auto) 0.200 Neut % (Auto) 40.5 L Lymph % (Auto) 46.5 H [place] % (Auto) 6.8 Eos % (Auto) 4.5 Baso % (Auto) 1.5 H Absolute Neuts (auto) 2.2 Absolute Lymphs (auto) 2.47 Nucleated RBC % 0 Sodium 142 Potassium 4.1 Chloride 108 Carbon Dioxide 23.1 Anion Gap 11 BUN 19 Creatinine 1.04 Estim Creat Clear Calc 88.90 Est GFR (MDRD) Non-Af 79 BUN/Creatinine Ratio 18.6 Glucose 112 H Calcium 9.0 Discharge Plan Triage Chief Complaint: Hypertension ED Provider: Jaison Márquez Dx/Rx/DC Orders Clinical Impression: Accelerated hypertension, Anxiety disorder, Hyperlipidemia, Hypothyroidism Instructions: ED Hypertension, Established Prescriptions: New clonidine HCl 0.1 mg tablet 0.1 mg PO BID 14 Days Qty: 28 0RF No Action polyethylene glycol 3350 17 gram/dose powder 17 g PO DAILY multivitamin tablet 1 tab PO DAILY pravastatin 40 MG tablet 40 mg PO QHS gabapentin 300 MG capsule 300 mg PO BIDCM PRN (Reason: numbness and tingling) levothyroxine 25 mcg tablet 25 mcg PO DAILY naproxen 500 mg tablet 500 mg PO BID PRN (Reason: pain) buprenorphine-naloxone 8-2 mg tablet, sublingual 0.25 tab sublingual TID metoprolol succinate 25 mg tablet extended release 24 hr 25 mg PO QHS losartan 50 mg tablet 50 mg PO BID ondansetron HCl 4 mg tablet 4 mg PO Q6H PRN PRN (Reason: nausea) clonidine HCl 0.1 mg tablet 0.1 mg PO Q8H PRN (Reason: hypertensive ) 3 Days Qty: 9 0RF Rx Instructions: Take this if systolic blood pressure is greater than 175 Primary Care Provider: Edwin Donald Chi Referrals: Edwin Donald Chi, MD [Primary Care Provider] - Activity Restrictions/Additional Instructions: Please take the valsartan in the morning and begin taking the clonidine twice a day. Take the metoprolol at bedtime. This may help regulate your blood pressure without severe fluctuations. Please only check your blood pressure once a day. Follow-up with your family doctor to discuss this plan of care and for potential medication refill. Return to the ER should you have any further concerns Print Language: Danish Disposition Disposition: Home, Self Care
== END 2025-02-27 05:19 | disposition home or self-care (01) ==
PROVIDERS: Emergency Provider Emergency Medicine; PCP Family Medicine Geriatric Medicine; Visit Provider Emergency Medicine
DX: I10 Essential (primary) hypertension (principal); F41.1 Generalized anxiety disorder; R00.1 Bradycardia, unspecified; E03.9 Hypothyroidism, unspecified; E78.5 Hyperlipidemia, unspecified; Z79.890 Hormone replacement therapy; Z79.899 Other long term (current) drug therapy; Z87.891 Personal history of nicotine dependence
CPT/HCPCS: 80048; 85025; 93005; 96374; 99284; A4216

== ENCOUNTER 2025-04-20 14:21 | Emergency (ER) | payer MEDICARE, MEDICAID, SELFPAY ==
[2025-04-20 14:22] VITALS: BP 188/77; PULSE 80; RESP 14; TEMP 36.1; O2SAT 98
[2025-04-20 14:28] VITALS: BMI 34.0
[2025-04-20 14:32] VITALS: O2SAT 97
--- NOTE | 2025-04-20 14:32 | EKG12_ITS ---
Test Reason : Blood Pressure : */* mmHG Vent. Rate : 73 BPM Atrial Rate : 73 BPM P-R Int : 194 ms QRS Dur : 82 ms QT Int : 376 ms P-R-T Axes : 60 37 53 degrees QTcB Int : 414 ms Normal sinus rhythm Normal ECG Confirmed by Nick Cooper ([id number]), offline editor ORION SINCLAIR ([id number]) on 04/28/2025 1:05:47 PM Referred By: Confirmed By: Nick Cooper
[2025-04-20 14:34] VITALS: BP 168/78; PULSE 64; RESP 14; O2SAT 97
--- NOTE | 2025-04-20 14:37 | CT_ITS ---
PROCEDURE: BRAIN/HEAD WITHOUT CONTRAST 04/20/2025 REASON FOR EXAM: PREVIOUS BLEED TECHNIQUE: Head CT without intravenous contrast. Coronal and Sagittal reconstruction series were provided. One or more dose reduction techniques were used (e.g., Automated exposure control, adjustment of the mA and/or kV according to patient size, use of iterative reconstruction technique. RADIATION DOSE SUMMARY: DLP: 864 mGycm COMPARISON: CT head from 02/17/2025 and from 12/17/2024 FINDINGS: There is no acute infarct, intracranial hemorrhage, or mass effect. There is no hydrocephalus or significant midline shift. No acute, depressed calvarial fractures. No large scalp hematomas. Chronic left nasal bridge deformity. CT/Brain/Head without Contrast IMPRESSION: No acute intracranial hemorrhage. No acute intracranial process. Reading Location: [id number]
--- NOTE | 2025-04-20 14:41 | RAD_ITS ---
PROCEDURE: CHEST PA AND LATERAL 04/20/2025 REASON FOR EXAM: CHEST PAIN TECHNIQUE: Frontal and lateral views of the chest. COMPARISON: 02/17/2025 FINDINGS: No focal consolidation. No pleural effusion or pneumothorax. Cardiac silhouette is unremarkable. No acute fractures. RAD/Chest PA and Lateral IMPRESSION: No focal consolidations. Reading Location: [id number]
[2025-04-20 14:44] LABS: Absolute Lymphocyte Count 3.16 X10^3/uL (0.83-4.51); Absolute Neutrophil Count 2.4 X10^3/uL (2.0-7.7); Basophil# 0.06 X10^3/uL; Eosinophil# 0.17 X10^3/uL; Eosinophils% 2.7 % (0-5); Hematocrit 44.2 % (40-54); Hemoglobin 14.8 g/dL (13.0-16.5); Lymphocyte # 3.16 X10^3/ul (0.83-4.51); Lymphocyte % 50.3 % (19-41); Mean Corp Hgb Conc 33.5 g/dL (32-36); Mean Corpuscular Hgb 29.7 pg (27.0-32.0); Mean Corpuscular Volume 88.8 fL (80-94); Mean Platelet Vol. 10.2 fl (6.2-12.0); Monocyte# 0.48 X10^3/uL; Monocyte% 7.6 % (0-10); NRBC Flagged by Analyzer 0 % (0-5); Neutrophil # 2.39 X10^3/uL (2.7-7.7); Neutrophil % 38.1 % (47-70); Platelet Count 228 K/mm3 (150-450); RBC Distribution Width CV 12.8 % (11.6-14.6); RBC Distribution Width SD 41.6 fl (35.1-43.9); Red Blood Count 4.98 M/mm3 (4.6-6.2); White Blood Count 6.3 K/mm3 (4.4-11.0)
--- NOTE | 2025-04-20 15:12 | EX.ED.DYSGE1 ---
HPI History of Present Illness Chief Complaint: Chest Pain Informant: patient and spouse/S.O. Narrative Narrative: Presents with spouse for evaluation waxing waning nontraumatic headache for the last couple days. He reports this past November traumatic head bleed was up at [facility] overnight cleared. Not any blood thinners. He has been using Tylenol with transient relief. Feels nauseated throughout. No vomiting no diarrhea. No cough. On his way in here he notes some chest discomfort attributing it to anxiety. Denies dysuria or frequency. He does report photophobia. He states this feels different than his traumatic head bleed with headaches. He had headaches for 2 months that resolved after his head injury. Prior similar symptoms: No PFSH [facility] Medical History Anxiety Former smoker Pulmonary embolism Migraines Excessive daytime sleepiness Peripheral neuropathy Generalized weakness Degenerative cervical disc Hyperglycemia Hypophosphatemia Hypokalemia Vitamin D deficiency Myalgia Urinary frequency Vertigo Pulmonary embolism Hyperlipidemia Anxiety Prostate cancer Colon cancer HTN (hypertension) Home Medications ?Medication ?Instructions ?Recorded ?Last Taken ?Type pravastatin 40 mg tablet 40 mg PO QHS 01/16/18 02/17/25 History polyethylene glycol 3350 17 17 g PO DAILY 03/29/19 Unknown History gram/dose oral powder multivitamin 1 tab PO DAILY 04/02/19 02/17/25 History gabapentin 300 mg capsule 300 mg PO BIDCM PRN numbness and 04/22/20 02/16/25 History tingling levothyroxine 25 mcg tablet 25 mcg PO DAILY 04/07/24 02/16/25 History buprenorphine 8 mg-naloxone 2 mg 0.25 tab sublingual TID 12/17/24 02/17/25 History sublingual tablet naproxen 500 mg tablet 500 mg PO BID PRN pain 12/17/24 Unknown History clonidine HCl 0.1 mg tablet 0.1 mg PO Q8H PRN hypertensive 3 02/17/25 Unknown Rx days #9 tabs losartan 50 mg tablet 50 mg PO BID 02/17/25 02/17/25 History ondansetron HCl 4 mg tablet 4 mg PO Q6H PRN PRN nausea 02/17/25 Unknown History clonidine HCl 0.1 mg tablet 0.1 mg PO BID 14 days #28 tabs 02/27/25 Unknown Rx metoprolol succinate 25 mg 25 mg PO QHS 02/27/25 Unknown History tablet,extended release 24 hr ondansetron 4 mg disintegrating 4 mg PO Q8H PRN PRN Nausea #10 tabs 04/20/25 Unknown Rx tablet Allergy/AdvReac Type Severity Reaction Status Date / Time amlodipine Allergy Unknown Unknown Verified 04/20/25 14:22 Family History Brother Heart disease Myocardial infarction Surgical History s/p port placement History of colon resection Social History household members: significant other housing: house Smoking Status: Former smoker alcohol intake: never ROS ROS ED Constitutional Constitutional ED: Denies chills, fever(s) or sweats ENT ENT ED: Denies sore throat Cardiovascular Cardiovascular: Reports chest pain; Denies leg edema, palpitations or racing heartbeat Respiratory/Chest Respiratory/Chest: Denies cough, dyspnea or dyspnea on exertion Gastrointestinal Gastrointestinal: Reports nausea; Denies abdominal pain, diarrhea or vomiting Genitourinary Genitourinary ED: Denies dysuria, hematuria or urinary frequency Musculoskeletal Musculoskeletal: Denies back pain, extremity pain or neck pain Integumentary Denies rash or wounds Neurologic Neurologic: Reports headache(s); Denies paresthesias or weakness EXAM Physical Exam Const Vital Signs: 04/20/25 14:22 04/20/25 14:32 04/20/25 14:34 Temperature 97 F L Temperature Source Temporal Pulse Rate 80 64 Respiratory Rate 14 14 Blood Pressure 188/77 H 168/78 H Blood Pressure Mean 114 108 Pulse Ox 98 97 97 Oxygen Delivery Method Room Air Room Air Room Air 04/20/25 15:22 04/20/25 16:46 04/20/25 17:46 Temperature 97.2 F L Temperature Source Pulse Rate 57 L 46 L 50 L Respiratory Rate 12 12 18 Blood Pressure 130/62 H 144/73 H 157/93 H Blood Pressure Mean 84 96 114 Pulse Ox 96 96 96 Oxygen Delivery Method Room Air Room Air Positive well nourished and well developed General Appearance ED: well developed and NAD HEENT Reports moist mucous membranes normocephalic and atraumatic Eyes General Eye ED: Yes normal appearance of both eyes Neck full ROM Neck Narrative: No meningismus Chest Wall Chest: Negative for tenderness Resp normal respiratory effort and normal air movement Effort and Inspection: symmetric chest movement; Negative for respiratory distress Cardio regular rate, regular rhythm and no murmurs Peripheral Pulses: pulses 2+ throughout GI normal to inspection, nondistended, normoactive bowel sounds and non-tender Palpation: Negative for guarding or rebound tenderness present Extremity normal to inspection General Extremety ED: Negative for edema or tenderness General Extremity: Negative for edema Neuro oriented x3, CN's II-XII intact bilaterally and no sensory deficits noted Sensorium / Orientation: awake and alert Skin no rashes or lesions noted and no wounds MDM MDM MDM Narrative Medical decision making narrative: Interventions / MDM: Differential diagnosis: Migraine headache, atypical chest pain. Diagnosis considered but do not suspect: Intracranial hemorrhage however CT negative. ACS however workup negative. My EKG interpretation: Sinus rate of 73, no ST changes. QTc 414 Imaging independently reviewed and interpreted by myself: CT brain: No acute process. 2 view chest x-ray: No acute process. External documents reviewed: CT brain imagings from December 17, 2024 had a traumatic tiny parafalcine subdural hematoma. Test considered but not ordered:N/A ED course: Evaluated waxing waning headaches for 2 days with nausea. Photophobia. Nursing protocol was initiated with his history of intracranial hemorrhage, CT brain chest x-ray cardiac workup. Results of CT brain was negative. Chest x-ray negative. Given migraine cocktail of fluids Reglan and Benadryl. 1733: Headache improving nausea improved. Cardiac workup negative troponin negative x 2. New headache symptoms with recent intracranial hemorrhage. He will be referred to local neurology. He will continue Tylenol. All questions were answered. Re-evaluation: stable Disposition discussed with patient/family/significant other: Patient and spouse Case discussed with consulting clinician: N/A This note was generated with [employer] dictation software. It may contain incorrect words, spelling, and punctuation that were not noted in checking the note before signing. Lab Data Attestation: I reviewed the patient's lab results. Labs: Laboratory Results - last 24 hr 04/20/25 04/20/25 14:30 16:40 WBC 6.3 RBC 4.98 Hgb 14.8 Hct 44.2 MCV 88.8 MCH 29.7 MCHC 33.5 RDW Std Deviation 41.6 RDW Coeff of Megha 12.8 Plt Count 228 MPV 10.2 Immature Gran % (Auto) 0.300 Neut % (Auto) 38.1 L Lymph % (Auto) 50.3 H [place] % (Auto) 7.6 Eos % (Auto) 2.7 Baso % (Auto) 1.0 Absolute Neuts (auto) 2.4 Absolute Lymphs (auto) 3.16 Nucleated RBC % 0 Sodium 139 Potassium 3.7 Chloride 105 Carbon Dioxide 21.4 Anion Gap 12 BUN 14 Creatinine 0.99 Estim Creat Clear Calc 94.34 Est GFR (MDRD) Non-Af 84 BUN/Creatinine Ratio 14.6 Glucose 118 H Calcium 9.1 Troponin T High Sens 7 Troponin T Hi Sens 2 Hr 8 Radiography Diagnostic Testing: Clinical Impression(s) from Imaging Studies Brain CT 04/20/25 14:37 IMPRESSION: No acute intracranial hemorrhage. No acute intracranial process. Reading Location: [facility] Chest X-Ray 04/20/25 14:41 IMPRESSION: No focal consolidations. Reading Location: [facility] Discharge Plan Triage Chief Complaint: Chest Pain ED Provider: Santos Montoya Dx/Rx/DC Orders Clinical Impression: Headache, migraine, Chest pain Instructions: ED Chest Pain, Uncertain Cause, ED, Migraine (Classical) Prescriptions: New ondansetron 4 mg tablet,disintegrating 4 mg PO Q8H PRN PRN (Reason: Nausea) Qty: 10 0RF No Action polyethylene glycol 3350 17 gram/dose powder 17 g PO DAILY multivitamin tablet 1 tab PO DAILY pravastatin 40 MG tablet 40 mg PO QHS gabapentin 300 MG capsule 300 mg PO BIDCM PRN (Reason: numbness and tingling) levothyroxine 25 mcg tablet 25 mcg PO DAILY naproxen 500 mg tablet 500 mg PO BID PRN (Reason: pain) buprenorphine-naloxone 8-2 mg tablet, sublingual 0.25 tab sublingual TID metoprolol succinate 25 mg tablet extended release 24 hr 25 mg PO QHS clonidine HCl 0.1 mg tablet 0.1 mg PO BID 14 Days Qty: 28 0RF losartan 50 mg tablet 50 mg PO BID ondansetron HCl 4 mg tablet 4 mg PO Q6H PRN PRN (Reason: nausea) clonidine HCl 0.1 mg tablet 0.1 mg PO Q8H PRN (Reason: hypertensive ) 3 Days Qty: 9 0RF Rx Instructions: Take this if systolic blood pressure is greater than 175 Primary Care Provider: Edwin Donald Chi Referrals: Aftab Bardales MD [Non-Staff -Ordering Privileges] - 1-2 Weeks Edwin Donald Chi, MD [Primary Care Provider] - 1 Week Activity Restrictions/Additional Instructions: CT brain negative today. Cardiac workup negative. Follow-up with your PCP for your chest pain symptoms. Follow-up with neurology for new migraine symptoms with previous intracranial hemorrhage. Print Language: Citizen Of [place] Disposition Disposition: Home, Self Care Discharge Date/Time: 04/20/25 17:47
[2025-04-20 15:18] LABS: Anion Gap 12 (5-15); BUN 14 mg/dL (4-19); BUN/Creat Ratio 14.6 RATIO (10-20); Calcium,Total 9.1 mg/dL (7.6-11.0); Carbon Dioxide 21.4 mmol/L (21.0-32.0); Chloride 105 mmol/L (98-108); Creatinine, Serum 0.99 mg/dL (0.70-1.20); EST Glomerular Filtration Rate 84 (>60); Estimated Creatinine Clearance 94.34 ml/min (50-250); Glucose 118 mg/dL (70-99); Potassium 3.7 mmol/L (3.3-5.1); Sodium Level 139 mmol/L (133-145); Troponin T High Sensitivity 7 ng/L (<=22)
[2025-04-20] MEDS: Metoclopramide 10 MG/2 ML Vial IV (15:21)
[2025-04-20] MEDS: 0.9% Normal Saline (1000mL) 1,000 ML 999 ML IV (15:21)
[2025-04-20 15:22] VITALS: BP 130/62; PULSE 57; RESP 12; O2SAT 96
[2025-04-20] MEDS: DiphenhydrAMINE 50 MG/ML Syringe 25 MG IV (15:22)
[2025-04-20 16:46] VITALS: BP 144/73; PULSE 46; RESP 12; O2SAT 96
[2025-04-20 17:08] LABS: Troponin T High Sens 2 HR 8 ng/L (<=22)
[2025-04-20 17:46] VITALS: BP 157/93; PULSE 50; RESP 18; TEMP 36.2; O2SAT 96
== END 2025-04-20 17:47 | disposition home or self-care (01) ==
PROVIDERS: Emergency Provider Emergency Medicine; PCP Family Medicine Geriatric Medicine; Visit Provider Emergency Medicine
DX: G43.909 Migraine, unspecified, not intractable, without status migrainosus (principal); R07.9 Chest pain, unspecified; Z87.891 Personal history of nicotine dependence; I10 Essential (primary) hypertension; F41.9 Anxiety disorder, unspecified; E78.5 Hyperlipidemia, unspecified
CPT/HCPCS: 70450; 71046; 80048; 84484; 85025; 93005; 96361; 96374; 96375; 99284; A4216

== ENCOUNTER → 2025-05-06 | Outpatient (CLI) | payer MEDICARE, MEDICAID, SELFPAY ==
--- NOTE | 2025-05-06 16:32 | RAD_ITS ---
PROCEDURE: CHEST PA AND LATERAL 05/06/2025 REASON FOR EXAM: CHEST PAIN TECHNIQUE: Frontal and lateral views of the chest. COMPARISON: Radiographs on 04/20/2025. FINDINGS: Interval appearance of mild bilateral basilar atelectatic pulmonary changes. There is no demonstrated pleural abnormality. Enlarged cardiac silhouette. Normal mediastinum and kristin. Normal visualized pulmonary arteries. Atheromatous plaques of the visualized aortic arch and descending thoracic aorta. Diffuse spondylosis of the visualized thoracic spine. Normal visualized ribs, clavicles. Degenerative joint disease. There is no demonstrated abnormality of the visualized soft tissue structures of the upper abdomen. RAD/Chest PA and Lateral IMPRESSION: Interval appearance of mild bilateral basilar atelectatic pulmonary changes. Reading Location[facility]
[2025-05-06 17:29] LABS: Absolute Lymphocyte Count 2.48 X10^3/uL (0.83-4.51); Absolute Neutrophil Count 2.3 X10^3/uL (2.0-7.7); Basophil# 0.06 X10^3/uL; Basophil% 1.1 % (0-1); Eosinophils% 3.6 % (0-5); Hematocrit 44.5 % (40-54); Hemoglobin 15.1 g/dL (13.0-16.5); Lymphocyte # 2.48 X10^3/ul (0.83-4.51); Lymphocyte % 44.6 % (19-41); Mean Corp Hgb Conc 33.9 g/dL (32-36); Mean Corpuscular Hgb 29.7 pg (27.0-32.0); Mean Corpuscular Volume 87.4 fL (80-94); Mean Platelet Vol. 10.1 fl (6.2-12.0); Monocyte# 0.53 X10^3/uL; Monocyte% 9.5 % (0-10); NRBC Flagged by Analyzer 0 % (0-5); Neutrophil # 2.28 X10^3/uL (2.7-7.7); Platelet Count 217 K/mm3 (150-450); RBC Distribution Width CV 12.8 % (11.6-14.6); RBC Distribution Width SD 41.3 fl (35.1-43.9); Red Blood Count 5.09 M/mm3 (4.6-6.2); White Blood Count 5.6 K/mm3 (4.4-11.0)
[2025-05-06 18:04] LABS: Pro- Brain NATRIURETIC PEPTIDE 124 pg/mL (<=900)
[2025-05-06 18:07] LABS: Anion Gap 12 (5-15); BUN 20 mg/dL (4-19); BUN/Creat Ratio 19.7 RATIO (10-20); Calcium,Total 9.1 mg/dL (7.6-11.0); Carbon Dioxide 19.9 mmol/L (21.0-32.0); Chloride 107 mmol/L (98-108); Creatinine, Serum 0.99 mg/dL (0.70-1.20); EST Glomerular Filtration Rate 83 (>60); Glucose 79 mg/dL (70-99); Potassium 4.1 mmol/L (3.3-5.1); Sodium Level 139 mmol/L (133-145)
== END | disposition home or self-care (01) ==
LOC: RAD 16:31
PROVIDERS: PCP Family Medicine Geriatric Medicine; Referring Provider Family Medicine Geriatric Medicine; Visit Provider Family Medicine Geriatric Medicine
DX: R07.9 Chest pain, unspecified (principal)
CPT/HCPCS: 36415; 71046; 80048; 83880; 85025

== ENCOUNTER → 2025-06-03 | Outpatient (CLI) | payer MEDICARE, SELFPAY ==
[2025-06-03 11:01] LABS: Hematocrit 41.8 % (40-54); Hemoglobin 13.8 g/dL (13.0-16.5); Immature Granulocytes Count 0.010 X10^3/uL (0.0-0.0); Mean Corp Hgb Conc 33.0 g/dL (32-36); Mean Corpuscular Volume 88.9 fL (80-94); Mean Platelet Vol. 10.4 fl (6.2-12.0); NRBC Flagged by Analyzer 0 % (0-5); Platelet Count 196 K/mm3 (150-450); RBC Distribution Width CV 12.7 % (11.6-14.6); RBC Distribution Width SD 41.6 fl (35.1-43.9); Red Blood Count 4.70 M/mm3 (4.6-6.2); White Blood Count 3.9 K/mm3 (4.4-11.0)
[2025-06-03 11:53] LABS: AST(SGOT) 28 U/L (<=37); Alanine Aminotransfer ALT/SGPT 23 U/L (<=46); Albumin, Serum 4.3 g/dL (3.4-4.8); Alkaline Phosphatase 60 U/L (40-129); Anion Gap 9 (5-15); BUN 20 mg/dL (4-19); BUN/Creat Ratio 19.9 RATIO (10-20); Calcium,Total 8.8 mg/dL (7.6-11.0); Carbon Dioxide 22.0 mmol/L (21.0-32.0); Chloride 108 mmol/L (98-108); Globulin 2.3 g/dL (2.2-4.2); Glucose 109 mg/dL (70-99); LDH 177 U/L (87-241); Potassium 4.3 mmol/L (3.3-5.1)
[2025-06-03 12:07] LABS: PSA,Total- Diagnostic < 0.02 ng/mL (0.00-4.00)
[2025-06-04 08:08] LABS: Carcinoembryonic Antigen 0.9 ng/mL (0.0-4.7)
== END | disposition home or self-care (01) ==
LOC: LAB 10:24
PROVIDERS: PCP Family Medicine Geriatric Medicine; Referring Provider Internal Medicine Medical Oncology; Visit Provider Internal Medicine Medical Oncology
DX: C61 Malignant neoplasm of prostate (principal); Z85.038 Personal history of other malignant neoplasm of large intestine
CPT/HCPCS: 36415; 80053; 82378; 83615; 84153; 85025

== ENCOUNTER → 2025-06-09 | Outpatient (CLI) | payer MEDICARE, SELFPAY ==
[2025-06-09 13:47] LABS: Hematocrit 42.5 % (40-54); Hemoglobin 14.2 g/dL (13.0-16.5); Immature Granulocytes Count 0.010 X10^3/uL (0.0-0.0); Mean Corp Hgb Conc 33.4 g/dL (32-36); Mean Corpuscular Volume 87.3 fL (80-94); Mean Platelet Vol. 10.2 fl (6.2-12.0); NRBC Flagged by Analyzer 0 % (0-5); Platelet Count 199 K/mm3 (150-450); RBC Distribution Width CV 12.9 % (11.6-14.6); RBC Distribution Width SD 40.9 fl (35.1-43.9); Red Blood Count 4.87 M/mm3 (4.6-6.2); White Blood Count 5.0 K/mm3 (4.4-11.0)
[2025-06-09 14:40] LABS: AST(SGOT) 25 U/L (<=37); Alanine Aminotransfer ALT/SGPT 22 U/L (<=46); Albumin, Serum 4.2 g/dL (3.4-4.8); Alkaline Phosphatase 63 U/L (40-129); Anion Gap 10 (5-15); BUN 17 mg/dL (4-19); BUN/Creat Ratio 17.1 RATIO (10-20); Calcium,Total 9.4 mg/dL (7.6-11.0); Carbon Dioxide 23.4 mmol/L (21.0-32.0); Chloride 108 mmol/L (98-108); Globulin 2.5 g/dL (2.2-4.2); Glucose 84 mg/dL (70-99); Potassium 4.2 mmol/L (3.3-5.1)
[2025-06-09 14:41] LABS: PSA,Total - Annual Screen < 0.02 ng/mL (0.02-4.00); Vitamin D,25 Hydroxy 34.8 ng/mL (30-100)
[2025-06-09 21:23] LABS: Xtra Tube Kwok EXTRA TUBE
== END | disposition home or self-care (01) ==
LOC: POLAB3 13:23
PROVIDERS: PCP Family Medicine Geriatric Medicine; Visit Provider Family Medicine Geriatric Medicine
DX: Z12.5 Encounter for screening for malignant neoplasm of prostate (principal); E55.9 Vitamin D deficiency, unspecified; I10 Essential (primary) hypertension
CPT/HCPCS: 36415; 80053; 82306; 84153; 84443; 85025; G0103

== ENCOUNTER → 2025-07-01 | Outpatient (CLI) | payer MEDICARE, SELFPAY ==
--- NOTE | 2025-07-01 14:47 | CT_ITS ---
PROCEDURE: CTA HEAD AND NECK W/ CONTRAST 07/01/2025 REASON FOR EXAM: CAROTID ARTERY STENOSIS TECHNIQUE: CTA HEAD AND NECK W/ CONTRAST Multiplanar Sagittal and Coronal images were obtained. CONTRAST: Isovue 370 VOLUME: 100 mL One or more dose reduction techniques were used (e.g., Automated exposure control, adjustment of the mA and/or kV according to patient size, use of iterative reconstruction technique). RADIATION DOSE SUMMARY: CTDlvol: 31.5 mGy DLP: 1588.44 mGycm COMPARISON: None FINDINGS: Aortic Arch: Normal size and branching pattern. Mild atherosclerotic plaque. Brachiocephalic and Subclavians: Unremarkable RIGHT Carotid: Right CCA: Unremarkable. Right ICA: Unremarkable. Right ECA: Unremarkable. LEFT Carotid: Left CCA: Unremarkable. Left ICA: Unremarkable. Left ECA: Unremarkable. Vertebrals: Dominant left vertebral artery RIGHT Vertebral: Unremarkable. LEFT Vertebral: Unremarkable. Anatomy: [place] anatomy is normal. Aneurysm or avm: No intracranial aneurysms or large vascular malformations are identified. Anterior cerebral arteries: Unremarkable: Middle cerebral arteries: Unremarkable. Basilar artery: Unremarkable. Posterior cerebral arteries: Unremarkable. Other major branches of the posterior circulation: Unremarkable. Major venous structures: Unremarkable. Other findings: Neck: No lymphadenopathy. Lungs: Lung apices are clear. Bones: Unenhanced brain is unremarkable. CT/CTA Head AND Neck W/ Contrast IMPRESSION: Dominant left vertebral artery. No significant stenosis is seen. Reading Location: [id number]
== END | disposition home or self-care (01) ==
LOC: CT 14:43
PROVIDERS: PCP Family Medicine Geriatric Medicine; Referring Provider Family Medicine Geriatric Medicine; Visit Provider Family Medicine Geriatric Medicine
DX: I65.29 Occlusion and stenosis of unspecified carotid artery (principal)
CPT/HCPCS: 70496; 70498; Q9967

== ENCOUNTER 2025-08-12 23:52 | Emergency (ER) | payer MEDICARE, MEDICAID, SELFPAY ==
[2025-08-12 23:52] VITALS: BP 205/108; PULSE 78; RESP 18; TEMP 36.3; O2SAT 95; BMI 32.2
--- NOTE | 2025-08-12 23:59 | EX.ED.GUMALE ---
HPI History of Present Illness Chief Complaint: Complaint Narrative Narrative: 70-year-old male past medical history of BPH, remote history of prostate cancer 10 years ago states he stopped taking his tamsulosin/Flomax because he felt it was not working. He saw his urologist today because of dysuria that he has been having over the last week. He was put on Azo and another medication. He states that he has been having difficulty urinating today, and only dribbles a small amount. He is starting to have suprapubic discomfort because he has not had full urination since this afternoon, approximately 6 to 8 hours ago. [facility] Medical History Brain bleed Vitamin B12 deficiency BPH (benign prostatic hyperplasia) Subdural hematoma Opioid dependence Anxiety Migraines Peripheral neuropathy Degenerative cervical disc Hyperglycemia Vitamin D deficiency Myalgia Vertigo Hyperlipidemia Prostate cancer Colon cancer HTN (hypertension) Home Medications ?Medication ?Instructions ?Recorded ?Last Taken ?Type pravastatin 40 mg tablet 40 mg PO QHS 01/16/18 02/17/25 History polyethylene glycol 3350 17 17 g PO DAILY 03/29/19 Unknown History gram/dose oral powder multivitamin 1 tab PO DAILY 04/02/19 02/17/25 History gabapentin 300 mg capsule 300 mg PO BIDCM PRN numbness and 04/22/20 02/16/25 History tingling levothyroxine 25 mcg tablet 25 mcg PO DAILY 04/07/24 02/16/25 History clonidine HCl 0.1 mg tablet 0.1 mg PO Q8H PRN hypertensive 3 02/17/25 Unknown Rx days #9 tabs clonidine HCl 0.1 mg tablet 0.1 mg PO BID 14 days #28 tabs 02/27/25 Unknown Rx ondansetron 4 mg disintegrating 4 mg PO Q8H PRN PRN Nausea #10 tabs 04/20/25 Unknown Rx tablet valsartan 320 mg tablet 320 mg PO QHS 05/05/25 Unknown History buprenorphine 8 mg-naloxone 2 mg 0.25 tab sublingual QDAY 06/09/25 Unknown History sublingual tablet cephalexin 500 mg capsule 500 mg PO Q12 #14 CAPSULES 08/13/25 Unknown Rx Allergy/AdvReac Type Severity Reaction Status Date / Time amlodipine Allergy Unknown Unknown Verified 08/12/25 23:52 Family History Brother Heart disease Myocardial infarction Surgical History s/p port placement History of colon resection Social History household members: significant other housing: house Smoking Status: Former smoker alcohol intake: never ROS ROS ED ROS Narrative Review of systems positive for suprapubic discomfort and difficulty urinating/urinary retention. No nausea or vomiting, no exacerbating or alleviating factors. EXAM Physical Exam Narrative Exam Narrative: Afebrile. Vital signs noted. Nontoxic-appearing. Cardiovascular examination reveals regular rate and rhythm. Lungs are clear to auscultation bilaterally. The abdomen is soft with mild suprapubic discomfort, no guarding or rebound, no peritoneal signs. Positive bowel sounds. Neurological examination is nonfocal and nonlateralizing, seen ambulating to ED room. Moves all extremities. Const Vital Signs: 08/12/25 23:52 Temperature 97.4 F L Temperature Source Oral Pulse Rate 78 Respiratory Rate 18 Blood Pressure 205/108 H Blood Pressure Mean 140 Pulse Ox 95 Oxygen Delivery Method Room Air MDM MDM MDM Narrative Medical decision making narrative: Suspicion is high for BPH causing urinary retention. His prostate carcinoma is in remission. Bladder scan was performed by RN and he had over 500 mL of urine contained in the bladder. He was told that he will require Alvarez catheterization and follow-up. His urine will be sent to look for urinary tract infection from stagnant urine. After Alvarez catheter insertion, patient states he feels improved. I reviewed his urinalysis and it is positive for nitrites, but there are are 0-5 WBCs with 1+ bacteria. I would not call, urinary tract infection, but his urine will be sent for culture and he will be started on cephalexin. He was given his first dose here and prescription written for 500 mg to take twice a day. At this point in time, he will follow-up with his urologist and he will be given a Alvarez leg bag. Return instructions to the emergency department were reviewed. Disposition is discharged home in stable condition History & Record Review Discussion w/independent historian: Patient Additional record(s) reviewed:: Prior ED visit Lab Data Attestation: I reviewed the patient's lab results. Labs: Laboratory Results - last 24 hr 08/13/25 00:38 Urine Color Red Urine Clarity Clear Urine pH 6.0 Ur Specific [place] 1.020 Urine Protein 30 H Urine Glucose (UA) Normal Urine Ketones Negative Urine Occult Blood 150 H Urine Nitrite Positive H Urine Bilirubin 6 H Urine Urobilinogen 12 H Ur Leukocyte Esterase Negative Urine RBC 10-25 SEEN Urine WBC 0-5 SEEN Ur Squamous Epith Cells 0 SEEN Ur Transition Epith Cell 0-5 SEEN Urine Bacteria 1+ Urine Mucus 0 SEEN Discharge Plan Triage Chief Complaint: Complaint ED Provider: Polo Green Dx/Rx/DC Orders Clinical Impression: Urinary retention, BPH (benign prostatic hyperplasia) Instructions: ED Alvarez Catheter, Care, ED Urinary Retention, Male Prescriptions: New cephalexin 500 mg capsule 500 mg PO Q12 Qty: 14 0RF No Action polyethylene glycol 3350 17 gram/dose powder 17 g PO DAILY multivitamin tablet 1 tab PO DAILY valsartan 320 mg tablet 320 mg PO QHS pravastatin 40 MG tablet 40 mg PO QHS gabapentin 300 MG capsule 300 mg PO BIDCM PRN (Reason: numbness and tingling) levothyroxine 25 mcg tablet 25 mcg PO DAILY buprenorphine-naloxone 8-2 mg tablet, sublingual 0.25 tab sublingual QDAY clonidine HCl 0.1 mg tablet 0.1 mg PO BID 14 Days Qty: 28 0RF clonidine HCl 0.1 mg tablet 0.1 mg PO Q8H PRN (Reason: hypertensive ) 3 Days Qty: 9 0RF Rx Instructions: Take this if systolic blood pressure is greater than 175 ondansetron 4 mg tablet,disintegrating 4 mg PO Q8H PRN PRN (Reason: Nausea) Qty: 10 0RF Primary Care Provider: Edwin Donald Chi Referrals: Edwin Donald Chi, MD [Primary Care Provider] - Activity Restrictions/Additional Instructions: Follow-up with your urologist within the next week. Start taking your Flomax again. Return to the emergency department with decreased flow from urinary catheter, new or worsening symptoms. Have Alvarez catheter removed by your urologist. Call the office tomorrow to see when they want to see you for Alvarez catheter removal your urine culture is pending. Take the antibiotics as directed. Print Language: Macedonian Disposition Disposition: Home, Self Care
[2025-08-13] MEDS: Lidocaine Jelly 2% 20 ML Syringe (URO-JET) 1 APPLIC TOPICAL (00:11)
--- OUTSIDE RECORDS SUMMARY | 2025-08-13 00:22 | XMS RPT_ITS | CCD ---
Author Organization [facility] Care Team Providers Care Installer Technician Name Role Phone Jose Alejandro ALEXANDRA, Faby Gregory Unavailable Jackson New MD Unavailable William Wallace Unavailable Unavailable PROVIDER, UNKNOWN Unavailable Unavailable ODILON, EDWIN-CHI Unavailable Unavailable Amber Galeano DO Unavailable Minna Woodward MD Unavailable Chance Guidry Unavailable Unavailab Tanner Feldman MD Unavailable Yovani JARA , Marlee Buitrago Unavailable [phone] Pradeep Littlejohn MD Unavailable [phone] Bart Alvarado Unavailable Amber Galeano DO Unavailable Blanca Gar RN Unavailable Unavailable John ACOSTA, Linda Unavailable Unavailable Clint, Erika Unavailable Unavailable Juan Francisco RN, Camryn Stratton Unavailable Unavailable Unavailable Unavailable Dr. Edwin Donald Chi Primary Care Provider Dr. Edwin Donald Chi Referring Provider Dr. Jackson New Attending Provider Dr. Jackson New Other Provider IBRAHIMA Srinivasan Attending Provider OdilonEdwin garza Chi Primary Care Provider Aj JARA, Deyvi Unavailable KATERINE GAMBOA Attending Unavailable EDWIN DONALD CHI Primary Care Unavailable Odilon Edwin Chi Primary Care Provider [phone] ODILON, EDWIN CHI Primary Care Unavailable AGMBOA, KATERINE Referring Unavailable ODILON, EDWIN CHI Primary Care Unavailable GAMBOA, KATERINE Referring Unavailable ODILON, EDWIN CHI Primary Care Unavailable GAMBOA, KATERINE Referring Unavailable ODILON, EDWIN CHI Primary Care Unavailable GAMBOA, KATERINE Referring Unavailable ODILON, EDWIN CHI Primary Care Unavailable GAMBOA, KATERINE Referring Unavailable ODILON, EDWIN CHI Primary Care Unavailable GAMBOA, KATERINE Referring Unavailable ODILON, EDWIN CHI Primary Care Unavailable GAMBOA, KATERINE Referring Unavailable ODILON, EDWIN CHI Primary Care Unavailable GAMBOA, KATERINE Referring Unavailable ODILON, EDWIN CHI Primary Care Unavailable GAMBOA, KATERINE Referring Unavailable ODILON, EDWIN CHI Primary Care Unavailable GAMBOA, KATERINE Referring Unavailable ODILON, EDWIN CHI Primary Care Unavailable GAMBOA, KATERINE Referring Unavailable ODILON, EDWIN CHI Primary Care Unavailable GAMBOA, KATERINE Referring Unavailable ODILON, EDWIN CHI Primary Care Unavailable GAMBOA, KATERINE Referring Unavailable ODILON, EDWIN CHI Primary Care Unavailable GAMBOA, KATERINE Referring Unavailable ODILON, EDWIN CHI Primary Care Unavailable GAMBOA, KATERINE Referring Unavailable ODILON, EDWIN CHI Primary Care Unavailable GAMBOA, KATERINE Referring Unavailable ODILON, EDWIN CHI Primary Care Unavailable GAMBOA, KATERINE Referring Unavailable ODILON, EDWIN CHI Primary Care Unavailable GAMBOA, KATERINE Referring Unavailable ODILON, EDWIN CHI Primary Care Unavailable GAMBOA, KATERINE Referring Unavailable ODILON, EDWIN CHI Primary Care Unavailable GAMBOA, KATERINE Referring Unavailable ODILON, EDWIN CHI Primary Care Unavailable GAMBOA, KATERINE Referring Unavailable ODILON, EDWIN CHI Primary Care Unavailable GAMBOA, KATERINE Referring Unavailable ODILON, EDWIN CHI Primary Care Unavailable GAMBOA, KATERINE Referring Unavailable ODILON, EDWIN CHI Primary Care Unavailable GAMBOA, KATERINE Referring Unavailable ODILON, EDWIN CHI Primary Care Unavailable GAMBOA, KATERINE Referring Unavailable ODILON, EDWIN CHI Primary Care Unavailable GAMBOA, KATERINE Referring Unavailable ODILON, EDWIN CHI Primary Care Unavailable GAMBOA, KATERINE Referring Unavailable ODILON, EDWIN CHI Primary Care Unavailable GAMBOA, KATERINE Referring Unavailable ODILON, EDWIN CHI Primary Care Unavailable GAMBOA, KATERINE Referring Unavailable ODILON, EDWIN CHI Primary Care Unavailable GAMBOA, KATERINE Referring Unavailable ODILON, EDWIN CHI Primary Care Unavailable GAMBOA, KATERINE Referring Unavailable ODILON, EDWIN CHI Primary Care Unavailable GAMBOA, KATERINE Referring Unavailable ODILON, EDWIN CHI Primary Care Unavailable GAMBOA, KATERINE Referring Unavailable ODILON, EDWIN CHI Primary Care Unavailable GAMBOA, KATERINE Referring Unavailable ODILON, EDWIN CHI Primary Care Unavailable GAMBOA, KATERINE Referring Unavailable ODILON, EDWIN CHI Primary Care Unavailable GAMBOA, KATERINE Referring Unavailable ODILON, EDWIN CHI Primary Care Unavailable GAMBOA, KATERINE Referring Unavailable Odilon , Yash Primary Care Provider EDNA VILLASENOR Attending Unavailable RICHARDEDNA LORENZANA Referring Unavailable ODILON, EDWIN-CHI Primary Care Unavailable ANDERS ROBERTSON Attending Unavailable ODILON, EDWIN-CHI Primary Care Unavailable GEUBE, JAGJIT Admitting Unavailable GEUBE, JAGJIT Attending Unavailable NONE, PCP Referring Unavailable ODILON, EDWIN-CHI Primary Care Unavailable Odilon , Dr. Edwin Blanton Primary Care Provider [phone] Sandy MARCOS, Dr. Waite Attending Provider Sandy MARCOS, Dr. Waite Emergency Provider Odilon JARA, Dr. Edwin Blanton Attending Provider Reta MARCOS, Dr. Hart Attending Provider Dr. Tanner Mcduffie DO Emergency Provider Luisana MARCOS, Dr. Felton Attending Provider Luisana MARCOS, Dr. Felton Referring Provider Luisana MARCOS, Dr. Felton Emergency Provider Eulalia MARCOS, Dr. Aguilera Referring Provider Eulalia MARCOS, Dr. Aguilera Emergency Provider Dr. Luke Wallace MD Emergency Provider Eulalia MARCOS, Dr. Aguilera Attending Provider Dr. Luke Wallace MD Attending Provider Dr. Jaison Márquez DO Emergency Provider Dr. Edwin Donald MD, Chi Primary Care Provider Dr. Jaison Márquez DO Attending Provider Dr. Santos Montoya DO Emergency Provider Marcellus Cobos Attending Unavailable Marcellus Cobos Referring Unavailable Odilon, Edwin Chi Primary Care Unavailable Odilon, Edwin Chi Primary Care Unavailable Tanner Mcduffie Attending Unavailable Odilon, Edwin Chi Primary Care Unavailable Santos Montoya Attending Unavailable Odilon, Edwin Chi Referring Unavailable Marcellus Cobos Attending Unavailable Odilon, Edwin Chi Primary Care Unavailable Jaison Márquez Attending Unavailable Odilon, Edwin Chi Primary Care Unavailable Odilon, Edwin Chi Primary Care Unavailable Luisana Jose Francisco Attending Unavailable Ulisana Jose Francisco Referring Unavailable Odilon, Edwin Chi Primary Care Unavailable Ravindra Delgado Attending Unavailable Odilon, Edwin Chi Primary Care Unavailable Klusty-Raghav, Willy Attending Unavailabl e Klusty-Raghav, Willy Referring Unavailabl e Odilon, Edwin Chi Primary Care Unavailable Wallace Luke Attending Unavailable Odilon, Edwin Chi Primary Care Unavailable Odilon, Edwin Chi Attending Unavailable Odilon, Edwin Chi Referring Unavailable Odilon, Edwin Chi Primary Care Unavailable Odilon, Edwin Chi Attending Unavailable Odilon, Edwin Chi Primary Care Unavailable Odilon, Edwin Chi Attending Unavailable Odilon, Edwin Chi Referring Unavailable Marcellus Cobos Consulting Unavailable Odilon, Edwin Chi Primary Care Unavailable Odilon, Edwin Chi Attending Unavailable Allergies Allergy Classification Reported Allergen(s) Allergy Type Date of Onset Reaction(s) Facility (10 sources) atenolol drug allergy 5 [facility] Work Phone: (1 source) Atenolol; Translations: [Atenolol *BETA BLOCKERS*] Drug Allergy [facility] Work Phone: Comment on above: nausea and vomiting (18 sources) amLODIPine Drug Allergy 1 Other [facility] Comment on above: cough (20 sources) beta-Blocking agent; Translations: [BETA-BLOCKERS (BETA-ADRENERGI C BLOCKING AGTS)] Drug Intolerance 4 GI Upset [facility] Work Phone: (7 sources) beta-Blocking agent Drug Intolerance 4 Other [facility] (1 source) amLODIPine Drug Allergy 5 [facility] Repository Medications Current Medications Medication Drug Class(es) Dates Sig (Normalized) Sig (Original) acetaminophen 500 mg oral tablet (17 sources) Start: 12-18-2024 End: 01-17-2025 take 2 tablets by mouth every eight hours acetaminophen (Tylenol) 500 MG tablet Take 2 tablets (1,000 mg) by mouth every 8 hours. 30 tablet 12/18/2024 3:10 PM EST 12/18/2024 01/17/2025 Active Start: 12-18-2024 End: 12-18-2024 take 1 tablet by mouth every eight hours 1,000 mg, Oral, Every 8 hours, First dose (after last modification) on Mon12/18/24 at 0700 Start: 12-17-2024 End: 12-18-2024 take 1 tablet by mouth every six hours 650 mg, Oral, Every 6 hours, First dose on Mon12/17/24 at 2300 End: 10-19-2015 take 1-2 tablets by mouth every six hours as needed for pain TYLENOL EXTRA STRENGTH 500 MG TABS One to two tablets by mouth every 6 hours as needed for pain. ACETAMINOPHEN [id number] Idania Christie CNP cloNIDine hydrochloride 0.1 mg oral tablet (6 sources) Central alpha-2 Adrenergic Agonist Start: 02-27-2025 take 1 tablet by mouth twice daily Clonidine Hcl 0.1 mg tablet Active 0.1 mg PO TWICE A DAY February 27, 2025 12:00am Start: 02-17-2025 Clonidine Hcl 0.1 mg tablet Active 0.1 mg PO Q8H as needed for hypertensive 9 February 17, 2025 12:00am Take this if systolic blood pressure is greater than 175 levothyroxine sodium 0.025 mg oral tablet (20 sources) l-Thyroxine Start: 01-16-2018 End: 12-18-2024 take 1 tablet by mouth once daily Levothyroxine 25 mcg tablet Active 25 ug PO DAILY April 07, 2024 12:00am Comment on above: Take 25 mcg by mouth daily before breakfast. losartan potassium 50 mg oral tablet (20 sources) Angiotensin 2 Receptor Anastacia Start: 02-17-2025 take 1 tablet by mouth twice daily Losartan 50 mg tablet Active 50 mg PO TWICE A DAY February 17, 2025 12:00am Start: 12-18-2024 End: 12-18-2024 take 50 mg by mouth twice daily 50 mg, Oral, 2 times d aily, First dose (after last modification) on Mon12/18/24 at 0900 Start: 04-06-2024 End: 02-17-2025 take 2 tablets by mouth twice daily Losartan 25 mg tablet Discontinued 50 mg PO TWICE A DAY April 06, 2024 12:00am February 17, 2025 10:38am Start: 04-06-2024 take 50 mg by mouth twice maría y Losartan Active 50 MG PO TWICE A DAY April 06, 2024 12:00am Start: 07-19-2019 End: 04-07-2024 take 1 tablet by mouth once daily in the morning Losartan 50 mg tablet Discontinued 50 mg PO EVERY MORNING July 23, 2021 11:26am April 07, 2024 12:25am On Hold: not taking Start: 04-02-2019 End: 06-25-2019 take 1 tablet by mouth once daily Losartan 100 mg tablet Discontinued 100 mg PO DAILY April 02, 2019 12:00am June 25, 2019 2:39pm Start: 04-02-2019 End: 04-02-2019 take 3 tablets by mouth once daily Losartan 25 mg tablet Discontinued 75 mg PO DAILY April 02, 2019 12:00am April 02, 2019 2:37pm Start: 04-02-2019 End: 04-02-2019 take 75 mg by mouth once daily Losartan Discontinued 7 5 MG PO DAILY April 02, 2019 12:00am April 02, 2019 2:37pm Start: 07-18-2016 End: 04-06-2024 take 1 tablet by mouth once daily, then take 2 tablets by mouth at bedtime losartan (COZAAR) 25 mg tablet Take 25 mg by mouth once daily. And 50 MG by mouth at bedtime 07/18/2016 Active Start: 12-07-2015 take 1 tablet by hemal th twice daily LOSARTAN POTASSIUM, 25MG (Oral Tablet) 1 (one) Tablet bid for 0 days Quantity: 60 {Tablet} Refills: 3 Ordered: 07-Dec-2015 Amber Galeano DO, DO, Kathleen Start : 07-Dec-2015 Active Start: 12-18-2013 End: 02-21-2014 take 1 tablet by mouth once daily LOSARTAN POTASSIUM, 25MG (Oral Tablet) 1 Tablet daily for 0 days Quantity: 30 {Tablet} Refills: 3 Ordered: 21-Feb-2014 Start : 18-Dec-2013 End : 21-Feb-2014 Inactive Start: 03-09-2012 End: 03-13-2012 take 1 tablet by mouth twice daily COZAAR, 50MG (Oral Tablet) 1 Tablet bid for 0 days Quantity: 60 {Tablet} Refills: 6 Ordered: 13-Mar-2012 Yola Waite Start : 09-Mar-2012 End : 13-Mar-2012 Inactive take 1 tablet by hemal once daily LOSARTAN POTASSIUM 50 MG TABS One tablet by mouth daily LOSARTAN POTASSIUM [id number] Norma Butt LPN Comment on above: Take 25 mg by mouth once daily. And 50 MG by mouth at bedtime methocarbamol 500 mg oral tablet (9 sources) Muscle Relaxant Start: End: take 1 tablet by mouth every eight hours in the evening methocarbamol (Robaxin) 500 MG tablet Take 1 tablet (500 mg) by mouth every 8 hours for 10 days. 30 tablet 12/18/2024 3:10 PM EST 12/18/2024 Active Start: 12-18-2024 End: 12-18-2024 take 1 dose by mouth three times daily 500 mg, Oral, Every 8 hours scheduled (3 times per day), First dose on Mon12/18/24 at 0045 24 hr metoprolol succinate 25 mg extended release oral tablet (13 sources) beta-Adrenergic Anastacia Start: 02-27-2025 take 1 tablet by mouth every twenty-four hours at bedtime Metoprolol Succinate 25 mg tablet extended release 24 hr Active 25 mg PO AT BEDTIME February 27, 2025 12:00am Start: 03-29-2019 End: 04-02-2019 Metoprolol Tartrate 25 mg ta blet Discontinued 12.5 mg PO TWICE A DAY March 29, 2019 12:00am April 02, 2019 2:15pm Start: 03-29-2019 End: 04-02-2019 take 12.5 mg by mouth twice daily Metoprolol Tartrate Discontinued 12.5 MG PO TWICE A DAY March 29, 2019 12:00am April 02, 2019 2:15pm Multiple Vitamins-Minerals (One-A-Day Mens 50+ Advantage) tablet (7 sources) take 1 tablet by mouth once daily Multiple Vitamins-Minerals (One-A-Day Mens 50+ Advantage) tablet Take 1 tablet by mouth daily. Active Multivitamin preparation (7 sources) Start: 04-02-2019 take 1 tablet by mouth once daily Multivitamin Active 1 TABLET PO DAILY April 02, 2019 2:16pm Start: 04-02-2019 take 1 tablet by hemal th once daily Multivitamin Active 1 TABLET PO DAILY April 02, 2019 12:00am Start: 04-02-2019 take 1 tablet by hemal th once daily Multivitamin Active 1 TABLET PO DAILY April 01, 2019 11:00pm Multivitamin tablet (4 sources) Start: 04-02-2019 Multivitamin tablet Active 1 {tbl} PO DAILY April 02, 2019 12:00am naproxen 500 mg oral tablet (20 sources) Nonsteroidal Anti-inflammatory Drug Start: 12-17-2024 take 1 tablet by mouth twice daily as needed for pain Naproxen 500 mg tablet Active 500 mg PO TWICE A DAY as needed for pain December 17, 2024 1:00am Start: 09-20-2018 End: 03-29-2019 Naproxen 500 tablet Disconti nued 1 {tbl} PO TWICE A DAY September 20, 2018 12:00am March 29, 2019 4:02pm Start: 05-07-2017 take 1 tablet by hemal th once daily as needed naproxen (NAPROSYN) 500 mg tablet Take 500 mg by mouth once daily as needed. 05/07/2017 Active End: 12-18-2024 take 1 tablet by mouth twice daily as needed for pain naproxen (EC Naprosyn) 500 MG EC tablet Take 500 mg by mouth 2 times daily as needed for mild pain (1-3). Do not crush, chew, or split. 12/18/2024 Discontinued (Stop taking at discharge) Comment on above: Take 500 mg by mouth once daily as needed. ondansetron 4 mg disintegrating oral tablet (20 sources) Serotonin-3 Receptor Antagonist Start: take 1 tablet by mouth every eight hours as needed for nausea Ondansetron 4 mg tablet,disintegrati ng Active 4 mg PO EVERY 8 HOURS NEEDED as needed for Nausea April 20, 2025 12:00am Start: 02-22-2016 take 1 tablet by hemal th every six hours as needed for nausea Ondansetron Hcl 4 mg tablet Active 4 mg PO EVERY 6 HOURS NEEDED as needed for nausea February 17, 2025 12:00am Start: 12-07-2015 End: 08-19-2019 take 1 tablet by mouth three times daily as needed Ondansetron Hcl (Zofran) 4 mg tablet Discontinued 4 mg PO THREE TIMES A DAY as needed March 29, 2019 12:00am August 19, 2019 3:00pm Start: 10-15-2015 End: 08-02-2017 take 1 tablet by mouth three times daily as needed for nausea ONDANSETRON 4 MG TBDP Take 1 tablet PO Three times a day as needed nausea ONDANSETRON [id number] Alix Arguello Comment on above: Take 4 mg by mouth a s needed. polyethylene glycol 3350 63841 mg powder for oral solution (12 sources) Osmotic Laxative Start: 7 End: 4 take 17 g by mouth once daily Polyethylene Glycol 3350 17 gram/dose powder Active 17 g PO DAILY March 29, 2019 12:00am pravastatin sodium 40 mg oral tablet (20 sources) HMG-CoA Reductase Inhibitor Start: 8 End: 5 take 1 tablet by mouth once daily pravastatin (PRAVACHOL) 40 mg tablet Take 40 mg by mouth once daily. 01/16/2018 Active Comment on above: Take 40 mg by mouth once daily. Completed/Discontinued Medications Medication Drug Class(es) Dates Sig (Normalized) Sig (Original) acetaminophen 325 mg / HYDROcodone bitartrate 5 mg oral tablet (11 sources) Opioid Agonist Start: 04-22-2020 End: 08-15-2022 Hydrocodone-Acetami nophen 1 EACH tablet Discontinued 1 NMA PO April 22, 2020 12:00am August 15, 2022 1:27pm Start: 04-22-2020 End: 08-15-2022 Hydrocodone-Acetaminophen Di scontinued 1 EACH PO April 22, 2020 12:00am August 15, 2022 1:27pm acetaminophen 325 mg / oxyCODONE hydrochloride 5 mg oral tablet (20 sources) Opioid Agonist Start: 04-27-2017 End: 02-27-2024 oxyCODONE-acetaminophen (PERCOCET) 5-325 mg tablet Start: 05-24-2016 take 1 tablet by hemal th every twelve hours as needed for pain PERCOCET 5-325 MG TABS Take one tablet b y mouth every 12 hours ONLY NEEDED for breakthrough pain. OXYCODONE-ACETAMINOPHEN [id number] Alix Arguello Start: 05-24-2016 End: 06-27-2016 take 1 tablet by mouth every twelve hours as needed for pain PERCOCET 5-325 MG TABS Take one tablet b y mouth every 12 hours ONLY NEEDED for breakthrough pain. OXYCODONE-ACETAMINOPHEN [id number] Idania Christie DIRECTOR OF USER EXPERIENCE Start: 05-10-2016 PERCOCET 7.5-3 25 MG TABS One tablet every 6 hours as needed for pain. OXYCODONE-ACETAMINOPHEN [id number] Alix Arguello Start: 05-10-2016 End: 05-24-2016 PERCOCET 7.5-325 MG TABS One tablet every 6 hours as needed for pain. OXYCODONE-ACETAMINOPHEN [id number] Matilde Ta LPN Start: 12-07-2015 take 1 tablet by hemal th every six hours OXYCODONE-ACETAMINOPHEN, 7.5-325MG (Oral Tablet) 1 (one) Tablet q 6 hrs for 30 days Refills: 0 Ordered: 07-Dec-2015 Amber Galeano DO, DO, Kathleen Start : 07-Dec-2015 Active Start: 10-15-2015 PERCOCET 7.5-3 25 MG TABS One to two tabs every 6 hours as needed for pain OXYCODONE-ACETAMINOPHEN [id number] Alix Arguello take 1 tablet by hemal th every six hours as needed for pain PERCOCET 5-325 MG TABS One tablet by hemal th every 6 hours as needed for pain. OXYCODONE-ACETAMINOPHEN [id number] Alix Arguello aliskiren 150 mg / valsartan 160 mg oral tablet (1 source) Angiotensin 2 Receptor Anastacia, Renin Inhibitor Start: 10-04-2010 End: 10-04-2010 take 1 tablet by mouth once daily VALTURNA, 150-160MG (Oral Tablet) 1 Tablet qd for 0 days Quantity: 30 {Tablet} Refills: 3 Ordered: 04-Oct-2010 Amber Galeano DO, DO, Kathleen Start : 04-Oct-2010 End : 04-Oct-2010 Discontinued Comments: dizzy Comment on above: dizzy ALPRAZolam 1 mg oral tablet (20 sources) Benzodiazepine Start: 09-04-2023 End: 04-07-2024 take 1 tablet by mouth once daily as needed for anxiety Alprazolam (Xanax) 1 mg tablet Discontinued 1 mg PO DAILY as needed for anxiety September 04, 2023 12:00am April 07, 2024 12:24am Start: 08-02-2017 ALPRAZOLAM 0.5 MG TBDP two per day ALPRAZOLAM [id number] Jackson New MD Start: 01-25-2016 End: 02-27-2024 take 1 tablet by mouth every twelve hours as needed for anxiety Alprazolam 0.5 MG tablet Discontinued 0.5 mg PO EVERY 12 HOURS NEEDED as needed for Anxiety February 21, 2017 12:00am March 29, 2019 4:02pm Start: 12-15-2015 End: 05-24-2016 take 1 tablet by mouth three times daily as needed for anxiety XANAX 0.5 MG TABS One tablet by mouth three times daily as needed for anxiety ALPRAZOLAM [id number] Alix Arguello Start: 10-15-2015 take 1 tablet by hemal th twice daily as needed for anxiety XANAX 0.5 MG TABS One tablet by mouth twice daily as needed for anxiety. ALPRAZOLAM [id number] Alix Arguello Start: 10-15-2015 take 1 tablet by hemal th once daily as needed for anxiety XANAX 0.5 MG TABS One tablet by mouth daily as needed for anxiety ALPRAZOLAM [id number] Alix Arguello Comment on above: Take 0.5 mg by mouth as needed. amitriptyline hydrochloride 50 mg oral tablet (2 sources) Tricyclic Antidepressant Start: 03-02-20 15 End: 03-13-20 15 take 1 tablet by mouth once daily at bedtime AMITRIPTYLINE HCL, 50MG (Oral Tablet) 1 (one) Tablet qhs for 0 days Quantity: 30 {Tablet} Refills: 3 Ordered: 13-Mar-2015 Start : 02-Mar-2015 End : 13-Mar-2015 Discontinued Start: 10-28-2014 End: 02-18-2015 take 1 tablet by mouth once daily at bedtime AMITRIPTYLINE HCL, 25MG (Oral Tablet) 1 (one) Tablet qhs for 0 days Quantity: 30 {Tablet} Refills: 3 Ordered: 18-Feb-2015 Linda Lopez LPN Start : 28-Oct-2014 End : 18-Feb-2015 Discontinued amLODIPine 5 mg oral tablet (13 sources) Dihydropyridine Calcium Channel Anastacia Start: 04-18-2019 End: 05-20-2019 take 1 tablet by mouth once daily Amlodipine (Norvasc) 5 mg tablet Discontinued 5 mg PO DAILY April 18, 2019 12:00am May 20, 2019 12:54pm Start: 09-24-2013 End: 02-21-2014 take 2 tablets by mouth once daily NORVASC, 5MG (Oral Tablet) 2 Tablet daily for 0 days Quantity: 60 {Tablet} Refills: 3 Ordered: 21-Feb-2014 Start : 24-Sep-2013 End : 21-Feb-2014 Inactive Start: 09-06-2010 End: 09-06-2010 inject 1 tablet by subcutaneous injection once daily NORVASC, 10MG (Oral Tablet) 1 (one) Tablet daily for 0 days Quantity: 30 {Tablet} Refills: 6 Ordered: 06-Sep-2010 Amber Galeano DO, DO, Kathleen Start : 06-Sep-2010 End : 06-Sep-2010 Discontinued Comments: sub generic pls Comment on above: sub generic pls amLODIPine 5 mg / valsartan 320 mg oral tablet (1 source) Dihydropyridine Calcium Channel Anastacia, Angiotensin 2 Receptor Anastacia Start: 02-17-20 09 End: 04-16-20 09 take 1 tablet by mouth once daily EXFORGE, 5-320MG (Oral Tablet) 1 (one) Tablet Daily for 0 days Refills: 0 Ordered: 16-Apr-2009 Amber Galeano DO, DO, Kathleen Start : 16-Feb-2009 End : 16-Apr-2009 Discontinued amoxicillin 875 mg / clavulanate 125 mg oral tablet (1 source) Penicillin-class Antibacterial Start: 04-10-20 End: 02-27-20 24 amoxicillin-clavulan ic acid (AUGMENTIN) 875-125 mg per tablet atenolol 25 mg oral tablet (1 source) beta-Adrenergic Anastacia Start: 07-27-20 10 End: 08-26-20 10 take 1 tablet by mouth once daily ATENOLOL, 25MG (Oral Tablet) 1 (one) Tablet qd for 0 days Quantity: 30 {Tablet} Refills: 3 Ordered: 27-Jul-2010 Hortencia Montemayor MD Start : 27-Jul-2010 End : 26-Aug-2010 Discontinued atorvastatin 20 mg oral tablet (7 sources) HMG-CoA Reductase Inhibitor Start: 06-23-20 14 End: 08-12-20 14 take 1 tablet by mouth once daily ATORVASTATIN CALCIUM, 20MG (Oral Tablet) 1 (one) Tablet Tablet daily for 0 days Quantity: 30 {Tablet} Refills: 3 Ordered: 12-Aug-2014 Start : 23-Jun-2014 End : 12-Aug-2014 Discontinued End: 05-21-2014 take 1 tablet by mouth once daily ATORVASTATIN CALCIUM 20 MG TABS One tablet by mouth daily ATORVASTATIN CALCIUM [id number] Norma Butt LPN azithromycin 250 mg oral tablet (1 source) Macrolide Antimicrobial Start: 03-03-2017 End: 02-27-2024 azithromycin (ZITHROMAX) 250 mg tablet baclofen 10 mg oral tablet (4 sources) gamma-Aminobutyric Acid-ergic Agonist Start: 08-02-2017 BACLOFEN 10 MG TABS once daily BACLOFEN [id number] Jackson New MD Start: 05-07-2017 End: 02-27-2024 baclofen (LIORESAL) 10 mg ta blet benzonatate 100 mg oral capsule (11 sources) Non-narcotic Antitussive Start: 07-19-2019 End: 08-19-2019 take 1 capsule by mouth three times daily Benzonatate 100 mg capsule Discontinued 100 mg PO THREE TIMES A DAY July 19, 2019 12:00am August 19, 2019 3:01pm 168 hr buprenorphine 0.01 mg/hr transdermal system (7 sources) Partial Opioid Agonist Start: 07-05-2016 End: 02-27-2024 apply 1 dose transdermal route every week BUTRANS 10 mcg/hour Apply 1 Patch as directed once each week. 0 07/05/2016 02/27/2024 Discontinued Start: 06-27-2016 BUTRANS 5 MCG/ HR PTWK Apply 1 new patch every week BUPRENORPHINE [id number] Idania Corbett Pratik DEAN Start: 06-27-2016 End: 12-26-2016 BUTRANS 5 MCG/HR PTWK Apply 1 new patch every week BUPRENORPHINE [id number] Idania R Pratik DIRECTOR OF USER EXPERIENCE Comment on above: Apply 1 Patch as dir ected once each week. buprenorphine 8 mg / naloxone 2 mg sublingual film (20 sources) Partial Opioid Agonist, Opioid Antagonist Start: 12-18-2024 End: 12-18-2024 0.25 Film, SubLINGual, 4 times daily PRN, 4 times daily as needed, Starting on Mon12/18/24 at 0000 Start: 12-17-2024 take 1 tablet under the tongue three times daily Buprenorphine-Naloxone 8-2 mg tablet, sublingual Active 0.25 {tbl} SL THREE TIMES A DAY December 17, 2024 1:00am Start: 02-05-2024 buprenorphine- nalOXone SL (SUBOXONE) 8-2 mg subl Takes 1/8 to a 1/4 tablet up to four times daily as needed 02/05/2024 Active Start: 02-05-2024 buprenorphine- naloxone (Suboxone) 8-[address] 0.25 tablets under the tongue as needed (4 times daily as needed). 02/05/2024 Active Start: 09-04-2023 End: 04-07-2024 Buprenorphine-Naloxone 2-0.5 mg tablet, sublingual Discontinued 1 {tbl} SL DAILY September 04, 2023 12:00am April 07, 2024 12:24am Start: 09-04-2023 End: 04-07-2024 take 1 tablet under the tongue once daily as needed Buprenorphine-Naloxone 8-2 mg tablet, sublingual Discontinued {tbl} SL DAILY NEEDED September 04, 2023 12:00am April 07, 2024 12:24am Start: 09-04-2023 End: 04-07-2024 Buprenorphine-Naloxone 8-2 m g film Discontinued September 04, 2023 12:00am April 07, 2024 12:24am Start: 09-04-2023 End: 04-07-2024 Buprenorphine-Naloxone Disco ntinued 1 TABLET SL DAILY September 04, 2023 12:00am April 07, 2024 12:24am Start: 09-04-2023 End: 04-07-2024 Buprenorphine-Naloxone Disco ntinued TABLET SL DAILY NEEDED September 04, 2023 12:00am April 07, 2024 12:24am Start: 08-15-2022 End: 05-31-2023 Buprenorphine-Naloxone 8-2 m g film Discontinued 0.5 NMA SL DAILY August 15, 2022 12:00am May 31, 2023 2:12pm Start: 08-15-2022 End: 05-31-2023 Buprenorphine-Naloxone Disco ntinued 0.5 FILM SL DAILY August 15, 2022 12:00am May 31, 2023 2:12pm Comment on above: Takes 1/8 to a 1/4 t ablet up to four times daily as needed carvedilol 6.25 mg oral tablet (20 sources) alpha-Adrenergic Anastacia, beta-Adrenergic Anastacia Start: 05-20-2019 End: 07-19-2019 take 1 tablet by mouth twice daily at mealtime Carvedilol 6.25 mg tablet Discontinued 6.25 mg PO TWICE A DAY 60 May 20, 2019 1:32pm July 19, 2019 2:32pm must administer with a meal/food Start: 04-02-2019 End: 05-20-2019 take 1 tablet by mouth twice daily at mealtime Carvedilol (Coreg) 3.125 mg tablet Discontinued 3.125 mg PO TWICE A DAY 60 April 18, 2019 3:09pm May 20, 2019 1:32pm must administer with a meal/food celecoxib 200 mg oral capsule (1 source) Nonsteroidal Anti-inflammatory Drug Start: 11-30-2011 End: 11-05-2012 take 1 capsule by mouth once daily CELEBREX, 200MG (Oral Capsule) 1 Capsule daily for 0 days Quantity: 30 Refills: 0 Ordered: 05-Nov-2012 Start : 30-Nov-2011 End : 05-Nov-2012 Inactive chlorthalidone 50 mg oral tablet (8 sources) Thiazide-like Diuretic Start: 02-10-2014 End: 05-21-2014 take 1 tablet by mouth once daily CHLORTHALIDONE, 50MG (Oral Tablet) 1 (one) Tablet Tablet daily for 0 days Quantity: 30 {Tablet} Refills: 3 Ordered: 12-Mar-2014 Start : 10-Feb-2014 End : 12-Mar-2014 Inactive Start: 12-18-2013 End: 02-21-2014 take 1 tablet by mouth once daily CHLORTHALIDONE, 25MG (Oral Tablet) 1 Tablet Tablet daily for 0 days Quantity: 30 {Tablet} Refills: 3 Ordered: 21-Feb-2014 Start : 18-Dec-2013 End : 21-Feb-2014 Inactive cholecalciferol 0.05 mg oral capsule (8 sources) Vitamin D Start: 02-21-2014 End: 03-12-2014 take 1 capsule by mouth once daily VITAMIN D, 2000UNIT (Oral Capsule) 1 (one) Capsule daily for 360 days Refills: 0 Ordered: 12-Mar-2014 Start : 21-Feb-2014 End : 12-Mar-2014 Inactive Start: 11-23-2012 End: 02-21-2014 take 1 capsule by mouth once daily VITAMIN D, 1000UNIT (Oral Capsule) 1 Capsule daily for 0 days Quantity: 30 {Capsule} Refills: 0 Ordered: 21-Feb-2014 Start : 23-Nov-2012 End : 21-Feb-2014 Inactive End: 05-21-2014 take 1 tablet by mouth once daily VITAMIN D 2000 UNIT TABS One tablet by mouth daily CHOLECALCIFEROL [id number] Norma Butt LPN ciprofloxacin 500 mg oral tablet (1 source) Quinolone Antimicrobial Start: 07-08-2015 End: 07-18-2015 take 1 tablet by mouth twice daily CIPRO, 500MG (Oral Tablet) 1 (one) Tablet bid for 10 days Quantity: 20 {QS} Refills: 0 Ordered: 08-Jul-2015 Yola Waite Start : 08-Jul-2015 End : 18-Jul-2015 Inactive citalopram 10 mg oral tablet (11 sources) Serotonin Reuptake Inhibitor Start: 10-20-2015 End: 04-18-2016 take 1 tablet by mouth once daily CELEXA 10 MG TABS One tablet by mouth daily CITALOPRAM HYDROBROMIDE [id number] Idania Christie CNP Start: 08-12-2011 End: 11-23-2012 take 1 tablet by mouth once daily, then take 2 tablets by mouth once daily CITALOPRAM HYDROBROMIDE, 20MG (Oral Tablet) 1 Tablet daily x 1 week then 2 daily for 0 days Quantity: 60 {Tablet} Refills: 3 Ordered: 23-Nov-2012 Start : 06-Nov-2012 End : 23-Nov-2012 Inactive cyclobenzaprine hydrochloride 10 mg oral tablet (1 source) Muscle Relaxant Start: 09-21-2011 End: 11-05-2012 take 1 tablet by mouth once daily at bedtime as needed FLEXERIL, 10MG (Oral Tablet) 1 Tablet qhs prn for muscle relaxation for 0 days Quantity: 30 {Tablet} Refills: 0 Ordered: 05-Nov-2012 Start : 21-Sep-2011 End : 05-Nov-2012 Inactive DEPLIN, 7.5MG (Oral Tablet) (1 source) Start: 07-29-2011 End: 11-05-2012 take 1 tablet by mouth once daily DEPLIN, 7.5MG (Oral Tablet) 1 Tablet daily for 0 days Quantity: 30 {Tablet} Refills: 0 Ordered: 05-Nov-2012 Start : 29-Jul-2011 End : 05-Nov-2012 Inactive dicyclomine hydrochloride 10 mg oral capsule (11 sources) Anticholinergic Start: 11-06-2016 End: 11-08-2016 take 2 capsules by mouth three times daily before mealtime Dicyclomine 10 MG capsule Discontinued 20 mg PO THREE TIMES DAILY BEFORE MEALS November 06, 2016 1:00am November 08, 2016 3:35pm Start: 11-06-2016 End: 11-08-2016 take 20 mg by mouth three times daily before mealtime Dicyclomine Discontinued 20 MG PO THREE TIMES DAILY BEFORE MEALS November 06, 2016 1:00am November 08, 2016 3:35pm 24 hr dilTIAZem hydrochloride 180 mg extended release oral capsule (2 sources) Calcium Channel Anastacia Start: 09-09-2014 End: 09-26-2014 take 1 capsule by mouth once daily CARDIZEM CD, 180MG (Oral Capsule Extended Release 24 Hour) 1 (one) Capsule ER 24HR daily for 0 days Quantity: 30 {Capsule} Refills: 3 Ordered: 26-Sep-2014 Start : 09-Sep-2014 End : 26-Sep-2014 Discontinued Start: 01-12-2011 End: 01-28-2011 take 1 capsule by mouth once daily CARDIZEM CD, 240MG (Oral Capsule Extended Release 24 Hour) 1 Capsule ER 24HR qd for 30 days Quantity: 30 {Capsule_ER_24HR} Refills: 3 Ordered: 4-Mar-2011 Start : 12-Jan-2011 End : 28-Jan-2011 Inactive docusate sodium 100 mg oral capsule (11 sources) Start: 11-06-2016 End: 11-08-2016 take 1 capsule by mouth once daily Docusate Sodium (Colace) 100 MG capsule Discontinued 100 mg PO DAILY November 06, 2016 1:00am November 08, 2016 3:35pm doxycycline hyclate 100 mg oral capsule (1 source) Tetracycline-class Drug Start: 04-08-2014 End: 04-18-2014 take 1 capsule by mouth twice daily DOXYCYCLINE HYCLATE, 100MG (Oral Capsule) 1 (one) Capsule Capsule bid for 10 days Quantity: 20 {Capsule} Refills: 0 Ordered: 08-Apr-2014 Yola Waite Start : 08-Apr-2014 End : 18-Apr-2014 Inactive DULoxetine 30 mg delayed release oral capsule (1 source) Serotonin and Norepinephrine Reuptake Inhibitor Start: 11-05-2012 End: 11-23-2012 CYMBALTA, 30MG (Oral Capsule Delayed Release Particles) [address] Part daily for 0 days Quantity: 30 {Capsule_DR_Part} Refills: 3 Ordered: 23-Nov-2012 Start : 05-Nov-2012 End : 23-Nov-2012 Inactive ergocalciferol 1.25 mg oral capsule (7 sources) Provitamin D2 Compound Start: 04-30-2014 End: 04-30-2014 take 1 capsule by mouth two times weekly ERGOCALCIFEROL, [id number] (Oral Capsule) 1 (one) Capsule Capsule twice weekly for 0 days Quantity: 24 {Capsule} Refills: 0 Ordered: 30-Apr-2014 Yola Waite Start : 30-Apr-2014 End : 30-Apr-2014 Discontinued End: 05-21-2014 ERGOCALCIFEROL 58456 UNIT CA PS 1 capsule twice a week ERGOCALCIFEROL [id number] Marlee Pina MD 72 hr fentaNYL 0.05 mg/hr transdermal system (7 sources) Opioid Agonist End: 02-27-2024 fentaNYL (DURAGESIC) 50 mcg/hr Apply 1 Patch as directed every 72 hours. 0 02/27/2024 Discontinued (Discontinued by another Health Care Provider) End: 08-02-2017 FENTANYL 50 MCG/HR PT72 Espinoza ge patch every 3 days FENTANYL [id number] Jackson New MD Comment on above: Apply 1 Patch as dir ected every 72 hours. fosaprepitant 150 mg injection (1 source) Start: 12-07-2015 End: 01-06-2016 EMEND, 150MG (Intravenous Solution Reconstituted) 1 (one) For Solution uad for 30 days Refills: 0 Ordered: 08-Jan-2016 Amber Galeano DO, DO, Kathleen Start : 07-Dec-2015 End : 06-Jan-2016 Inactive gabapentin 300 mg oral capsule (20 sources) Anti-epileptic Agent Start: 12-17-2024 End: 12-18-2024 take 300 mg by mouth three times daily 300 mg, Oral, 3 times daily, First dose on Mon12/17/24 at 2300 Start: 04-22-2020 take 1 capsule by mo uth twice daily at mealtime as needed Gabapentin 300 MG capsule Active 300 mg PO TWICE DAILY WITH MEALS as needed for numbness and tingling April 22, 2020 12:00am Start: 07-23-2019 End: 08-19-2019 take 1 capsule by mouth twice daily Gabapentin 300 mg capsule Discontinued 300 mg PO TWICE A DAY July 23, 2019 12:00am August 19, 2019 3:01pm Start: 03-29-2019 End: 03-29-2019 take 1 capsule by mouth once daily Gabapentin 300 mg capsule Discontinued 300 mg PO DAILY March 29, 2019 4:00pm March 29, 2019 4:07pm Start: 01-16-2018 End: 03-29-2019 take 1 capsule by mouth twice daily at mealtime Gabapentin 300 MG capsule Discontinued 300 mg PO TWICE DAILY WITH MEALS January 16, 2018 1:00am March 29, 2019 4:02pm Start: 05-07-2017 take 2 capsules by m outh once daily as needed gabapentin (NEURONTIN) 300 mg capsule Take 600 mg by mouth once daily as needed. 05/07/2017 Active Start: 02-02-2017 End: 02-27-2024 gabapentin (NEURONTIN) 100 m g capsule Start: 04-04-2016 End: 08-02-2017 take 1 capsule by mouth three times daily NEURONTIN 300 MG CAPS Take 1 capsule PO Three times a day GABAPENTIN [id number] Alix Arguello Start: 03-28-2016 End: 04-04-2016 GABAPENTIN 300 MG CAPS Take one tablet at bed time for 3 day. If your still experience numbness/tingling take one tablet twice daily GABAPENTIN [id number] Idania Christie DIRECTOR OF USER EXPERIENCE Start: 12-01-2011 End: 11-05-2012 NEURONTIN, 300MG (Oral Capsu le) 1 Capsule qd for 5 days then bid for 0 days Quantity: 60 {Capsule} Refills: 0 Ordered: 05-Nov-2012 Start : 01-Dec-2011 End : 05-Nov-2012 Inactive Comment on above: Take 600 mg by mouth once daily as needed. 1 ml hydrALAZINE hydrochloride 20 mg/ml injection (2 sources) Arteriolar Vasodilator Start : 12-17 End: 12-18 take 10 mg intravenously every four hours as needed for hypertension 10 mg, IntraVENous, Every 4 hours PRN, high blood pressure, Second line, give for blood pressure greater than 160 hold for heart greater than 100 bpm, Starting on Mon12/17/24 at 2248 hydroCHLOROthiazide 25 mg oral tablet (20 sources) Thiazide Diuretic Start : 04-02 End: 04-02 take 1 tablet by mouth once daily Hydrochlorothiazide 25 mg tablet Discontinued 25 mg PO DAILY April 02, 2019 12:00am April 02, 2019 2:41pm Start: 04-02-2019 End: 05-20-2019 take 1 tablet by mouth once daily Hydrochlorothiazide 12.5 mg tablet Discontinued 12.5 mg PO DAILY April 02, 2019 12:00am May 20, 2019 1:28pm Start: 02-25-2013 End: 02-21-2014 take 2 tablets by mouth once daily HYDROCHLOROTHIAZIDE, 12.5MG (Oral Tablet) 2 (two) Tablet daily for 0 days Quantity: 60 {Tablet} Refills: 3 Ordered: 21-Feb-2014 Start : 25-Feb-2013 End : 21-Feb-2014 Inactive hydroCHLOROthiazide 12.5 mg / telmisartan 40 mg oral tablet (1 source) Thiazide Diuretic, Angiotensin 2 Receptor Anastacia Start: 10-04-2010 End: 10-04-2010 take 1 tablet by mouth once daily MICARDIS HCT, 40-12.5MG (Oral Tablet) 1 (one) Tablet daily for 0 days Quantity: 30 {Tablet} Refills: 1 Ordered: 04-Oct-2010 Amber Galeano DO Waleska DO Amber Start : 04-Oct-2010 End : 04-Oct-2010 Discontinued hydroCHLOROthiazide 50 mg / triamterene 75 mg oral tablet (1 source) Potassium-sparin g Diuretic, Thiazide Diuretic Start: 03-13-2012 End: 03-21-2012 take 1 tablet by mouth once daily MAXZIDE, 75-50MG (Oral Tablet) 1 Tablet daily for 0 days Quantity: 30 Refills: 3 Ordered: 21-Mar-2012 Blanca Gar RN Start : 13-Mar-2012 End : 21-Mar-2012 Inactive hydroCHLOROthiazide 12.5 mg / valsartan 80 mg oral tablet (1 source) Thiazide Diuretic, Angiotensin 2 Receptor Anastacia Start: 05-15-2009 End: 05-15-2009 take 1 tablet by mouth once daily DIOVAN HCT, 80-12.5MG (Oral Tablet) 1 (one) Tablet Daily for 0 days Quantity: 30 {Tablet} Refills: 3 Ordered: 15-May-2009 AleishaenriqueYola camargo Start : 15-May-2009 End : 15-May-2009 Discontinued HYDROcodone bitartrate 7.5 mg / ibuprofen 200 mg oral tablet (1 source) Opioid Agonist, Nonsteroidal Anti-inflammator y Drug Start: 12-01-2011 End: 11-05-2012 take 1 tablet by mouth every eight hours as needed VICOPROFEN, 7.5-200MG (Oral Tablet) 1 Tablet q 8 hr prn for 0 days Quantity: 30 {Tablet} Refills: 0 Ordered: 05-Nov-2012 Start : 01-Dec-2011 End : 05-Nov-2012 Inactive Comments: thirty Comment on above: thirty labetalol hydrochloride 5 mg/ml injectable solution (2 sources) beta-Adrenergic Anastacia Start: 12-17-2024 End: 12-18-2024 take 10 mg intravenously every four hours as needed for hypertension 10 mg, IntraVENous, Every 4 hours PRN, high blood pressure, First line, give for blood pressure greater than 160 hold for heart rate less than 60 bpm, Starting on Mon12/17/24 at 2248 lactulose 667 mg/ml oral solution (20 sources) Osmotic Laxative Start: 11-08-2016 End: 08-12-2025 lactulose (DUPHALAC, CONSTULOSE) 10 gram/15 mL solution 04/10/2017 08/12/2025 Discontinued (Discontinued by Patient) lidocaine / prilocaine (6 sources) Antiarrhythmic, Amide Local Anesthetic Start: 11-02-2015 EMLA 2.5-2.5 % EXT CREA Apply to surface 30 minutes prior to the access LIDOCAINE-PRILO GILBERTO [id number] Alix Arguello Start: 11-02-2015 End: 04-18-2016 EMLA 2.5-2.5 % EXT CREA Appl y to surface 30 minutes prior to the access LIDOCAINE-PRILOCAINE [id number] Alix Arguello lisinopril 10 mg oral tablet (20 sources) Angiotensin Converting Enzyme Inhibitor Start: 06-25-2019 End: 2019 take 1 tablet by mouth once daily Lisinopril 10 mg tablet Discontinued 10 mg PO DAILY June 25, 2019 4:42pm 2019 2:46pm Start: 02-29-2012 End: 03-07-2012 take 1 tablet by mouth twice daily LISINOPRIL, 10MG (Oral Tablet) 1 Tablet bid for 0 days Quantity: 60 {Tablet} Refills: 3 Ordered: 07-Mar-2012 Blanca Gar RN Start : 29-Feb-2012 End : 07-Mar-2012 Inactive Start: 10-25-2010 End: 01-28-2011 take 1 tablet by mouth twice daily LISINOPRIL, 20MG (Oral Tablet) 1 Tablet Twice a day for 0 days Quantity: 60 {Tablet} Refills: 3 Ordered: 28-Jan-2011 Start : 25-Oct-2010 End : 28-Jan-2011 Inactive magnesium oxide 400 mg oral capsule (1 source) Start: 06-23-2014 End: 08-26-2014 take 1 capsule by mouth once daily MAGNESIUM OXIDE, 400MG (Oral Capsule) 1 (one) Capsule Capsule daily for 0 days Quantity: 30 {Capsule} Refills: 1 Ordered: 26-Aug-2014 Start : 23-Jun-2014 End : 26-Aug-2014 Discontinued meclizine hydrochloride 25 mg oral tablet (1 source) Antiemetic Start: 10-12-2011 End: 12-09-2011 take 1 tablet by mouth every eight hours ANTIVERT, 25MG (Oral Tablet) 1 (one) Tablet Q 8 hr for 0 days Quantity: 30 {Tablet} Refills: 0 Ordered: 09-Dec-2011 Start : 12-Oct-2011 End : 09-Dec-2011 Inactive metroNIDAZOLE 500 mg oral tablet (1 source) Nitroimidazole Antimicrobial Start: 07-08-2015 End: 07-18-2015 take 1 tablet by mouth three times daily FLAGYL, 500MG (Oral Tablet) 1 (one) Tablet tid for 10 days Quantity: 30 {QS} Refills: 0 Ordered: 08-Jul-2015 Yola Waite Start : 08-Jul-2015 End : 18-Jul-2015 Inactive 24 hr mirabegron 25 mg extended release oral tablet (9 sources) beta3-Adrenergic Agonist Start: 05-21-2024 End: 08-12-2025 take 1 tablet by mouth once daily mirabegron (MYRBETRIQ) 25 mg Tb24 Indications: Urgency of urination Take 1 tablet by mouth once daily. 90 tablet 3 05/21/2024 08/12/2025 Discontinued (Discontinued by Patient) mometasone furoate 0.05 mg/actuat metered dose nasal spray (1 source) Corticosteroid Start: 10-20-2009 NASONEX, 50MCG/ACT (Nasal Suspension) 2 (two) Suspension Daily for 0 days Quantity: 1 {Suspension} Refills: 0 Ordered: 26-Aug-2010 Toy ACOSTA MERON Start : 20-Oct-2009 Inactive MULTIPLE VITAMINS-MINERALS (3 sources) take 1 tablet by mouth once daily ONE-A-DAY MENS 50+ ADVANTAGE TABS One tablet by mouth daily. MULTIPLE VITAMINS-MINERALS [id number] Alix Arguello 1 ml naloxone hydrochloride 0.4 mg/ml injection (2 sources) Opioid Antagonist Start: 12-17-2024 End: 12-18-2024 0.4 mg, IntraVENous, Every 5 min PRN, opioid reversal, respiratory depression, Starting on Mon12/17/24 at 2250, +++ For RR omega-3 acid ethyl esters (snf) 1000 mg oral capsule (1 source) Start: 09-28-2007 End: 10-05-2007 take 4 capsules by mouth once daily LOVAZA, 1GM (Oral Capsule) 4 Capsule Daily for 0 days Refills: 0 Ordered: 05-Oct-2007 Amber Galeano DO, DO Amber Start : 28-Sep-2007 End : 05-Oct-2007 Discontinued omeprazole 40 mg delayed release oral capsule (11 sources) Proton Pump Inhibitor Start: 07-19-2019 End: 08-19-2019 take 1 capsule by mouth once daily Omeprazole 40 mg capsule,delayed release(DR/EC) Discontinued 40 mg PO DAILY July 19, 2019 12:00am August 19, 2019 3:00pm ondansetron ODT (Zofran-ODT) disintegrating tablet 4 mg (2 sources) Start: 12-17-2024 End: 12-18-2024 take 1 tablet by mouth every eight hours as needed for nausea and vomiting ondansetron ODT (Zofran-ODT) disintegrating tablet 4 mg oxybutynin chloride 5 mg oral tablet (20 sources) Cholinergic Muscarinic Antagonist Start: 03-29-2019 End: 04-02-2019 take 1 tablet by mouth once daily Oxybutynin Chloride 5 mg tablet Discontinued 5 mg PO DAILY March 29, 2019 12:00am April 02, 2019 2:16pm Start: 09-04-2017 End: 02-27-2024 take 1 tablet by mouth three times daily oxybutynin (DITROPAN) 5 mg tablet Take 1 tablet by mouth three times daily. 90 tablet 11 09/04/2017 02/27/2024 Discontinued (Discontinued by another Health Care Provider) Start: 08-02-2017 DITROPAN XL 5 MG [id number] once daily OXYBUTYNIN CHLORIDE [id number] Jackson New MD Start: 07-18-2016 End: 11-08-2016 take 1 tablet by mouth once daily Oxybutynin Chloride 5 MG tablet Discontinued 5 mg PO DAILY July 18, 2016 12:00am November 08, 2016 3:35pm End: 12-26-2016 take 1 tablet by mouth once daily DITROPAN XL 5 MG [id number] One tablet by mouth daily OXYBUTYNIN CHLORIDE [id number] Idania Christie CNP take 1 tablet by hemal once daily DITROPAN XL 5 MG [id number] One tablet by mouth daily OXYBUTYNIN CHLORIDE [id number] Alix Arguello Comment on above: Take 1 tablet by hemal three times daily. oxyCODONE (2 sources) Opioid Agonist Start: 12-17-19 End: 12-18-19 take 1 tablet by mouth every four hours as needed for pain oxyCODONE (Roxicodone) immediate release tablet 5 mg 5 ml palonosetron 0.05 mg/ml injection (1 source) Serotonin-3 Receptor Antagonist Start: 12-07-19 End: 01-06-20 16 ALOXI, 0.25MG/5ML (Intravenous Solution) 1 (one) Solution uad for 30 days Refills: 0 Ordered: 08-Jan-2016 Amber Galeano DO, DO, Kathleen Start : 07-Dec-2015 End : 06-Jan-2016 Inactive pantoprazole 20 mg delayed release oral tablet (6 sources) Proton Pump Inhibitor Start: 09-26-20 16 End: 12-26-19 17 PANTOPRAZOLE SODIUM 20 MG TBEC Take 1 tablet PO Qdaily PANTOPRAZOLE SODIUM [id number] Alix Arguello PARoxetine hydrochloride 20 mg oral tablet (1 source) Serotonin Reuptake Inhibitor Start: 09-26-20 14 End: 02-19-20 15 take 1 tablet by mouth once daily in the morning PAROXETINE HCL, 20MG (Oral Tablet) 1 (one) Tablet Tablet qam for 0 days Quantity: 30 {Tablet} Refills: 3 Ordered: 18-Feb-2015 Linda Lopez LPN Start : 26-Sep-2014 End : 18-Feb-2015 Discontinued polyethylene glycol 3350 / potassium chloride / sodium bicarbonate / sodium chloride / sodium sulfate (3 sources) Osmotic Laxative Start: 08-02-20 17 PEG-3350/ELECTROLYT ES 236 GM SOLR take as directed PEG [id number]-NACL -NASULF [id number] Jackson New MD microencapsulated potassium chloride 20 meq extended release oral tablet (7 sources) Start: 03-06-20 14 End: 03-12-20 14 take 1 tablet by mouth twice daily POTASSIUM CHLORIDE LUISA ER, 20MEQ (Oral Tablet Extended Release) 1 (one) Tablet ER bid for 0 days Quantity: 30 {Tablet} Refills: 3 Ordered: 12-Mar-2014 Start : 06-Mar-2014 End : 12-Mar-2014 Inactive End: 09-30-2015 take 1 tablet by mouth twice daily POTASSIUM CHLORIDE ER 20 MEQ CR-TABS One tablet by mouth twice daily POTASSIUM CHLORIDE [id number] Norma Butt LPN potassium gluconate 2.5 meq oral tablet (1 source) Start: 02-21-2014 End: 02-25-2014 take 1 tablet by mouth once daily POTASSIUM GLUCONATE, 595MG (Oral Tablet) 1 (one) Tablet daily (595 MG) Start : 21-Feb-2014 End : 25-Feb-2014 Discontinued potassium phosphate 155 mg / sodium phosphate, dibasic 852 mg / sodium phosphate, monobasic 130 mg oral tablet (7 sources) Start: 03-06-2014 End: 03-12-2014 take 1 tablet by mouth three times daily [id number], [phone] (Oral Tablet) 1 (one) Tablet tid for 10 days Quantity: 30 {Tablet} Refills: 0 Ordered: 12-Mar-2014 Start : 06-Mar-2014 End : 12-Mar-2014 Inactive End: 09-30-2015 take 1 tablet by mouth three times daily [id number] [phone] MG TABS One tablet by mouth three times daily K PHOS MONO-SOD PHOS DI & MONO [id number] Alix Arguello take 1 tablet by hemal th three times daily [id number] [phone] MG TABS One tablet by mouth three times daily K PHOS MONO-SOD PHOS DI & MONO [id number] Norma Butt LPN predniSONE 10 mg oral tablet (1 source) Start: 04-10-2017 End: 02-27-2024 predniSONE (DELTASONE) 10 mg tablet prochlorperazine 10 mg oral tablet (18 sources) Phenothiazine Start: 03-29-2019 End: 08-19-2019 take 1 tablet by mouth three times daily as needed Prochlorperazine Maleate (Compazine) 10 mg tablet Discontinued 10 mg PO THREE TIMES A DAY as needed March 29, 2019 12:00am August 19, 2019 3:01pm Start: 12-07-2015 take 1 tablet by hemal th every four hours as needed PROCHLORPERAZINE MALEATE, 10MG (Oral Tablet) 1 (one) Tablet q 4 hrs prn for 30 days Refills: 0 Ordered: 07-Dec-2015 Waleska MARCOS Amber Galeano DO Amber Start : 07-Dec-2015 Active Start: 10-15-2015 take 1 tablet by hemal th four times daily as needed for nausea COMPAZINE 10 MG ORAL TABS Take 1 tablet PO Four times daily as needed for nausea PROCHLORPERAZINE MALEATE [id number] Alix Arguello promethazine hydrochloride 25 mg oral tablet (1 source) Phenothiazine Start: 01-26-2015 End: 04-03-2015 take 1 tablet by mouth every six hours as needed for nausea PROMETHAZINE HCL, 25MG (Oral Tablet) 1 (one) Tablet Tablet q6hrs prn nausea for 0 days Quantity: 30 {Tablet} Refills: 0 Ordered: 03-Apr-2015 Linda Lopez LPN Start : 26-Jan-2015 End : 03-Apr-2015 Discontinued raNITIdine 150 mg oral tablet (20 sources) Histamine-2 Receptor Antagonist Start: 12-07-2015 End: 02-27-2024 ranitidine (ZANTAC) 150 mg tablet Start: 08-27-2012 End: 03-29-2019 take 1 tablet by mouth once daily as needed for gastroesophageal reflux disease Ranitidine Hcl 150 MG tablet Discontinued 150 mg PO DAILY as needed for Heartburn March 21, 2016 12:00am March 29, 2019 4:02pm rivaroxaban 20 mg oral tablet (20 sources) Factor Xa Inhibitor Start: 12-28-2015 End: 06-27-2016 take 1 tablet by mouth once daily XARELTO 20 MG TABS Take 1 tablet PO daily to start as instructed. RIVAROXABAN [id number] Alix Arguello Start: 12-12-2015 End: 01-26-2016 take 1 tablet by mouth twice daily Rivaroxaban (Xarelto) 15 MG tablet Discontinued 15 mg PO TWICE A DAY December 12, 2015 1:00am January 26, 2016 12:40pm End: 02-09-2016 take 2 tablets by mouth once daily XARELTO 15 MG TABS Two tablets by mouth daily. RIVAROXABAN [id number] Alix Arguello senkaylaot-s (6 sources) End: 04-18-2016 take 1 tablet by mouth once daily as needed for constipation STOOL SOFTENER 250 MG CAPS One tablet by mouth daily as needed for constipation. DOCUSATE SODIUM [id number] Alix Arguello take 1 tablet by hemal th once daily as needed for constipation STOOL SOFTENER 250 MG CAPS One tablet by mouth daily as needed for constipation. DOCUSATE SODIUM [id number] Alix Arguello simvastatin 10 mg oral tablet (1 source) HMG-CoA Reductase Inhibitor Start: 08-06-2012 End: 11-05-2012 take 1 tablet by mouth once daily SIMVASTATIN, 10MG (Oral Tablet) 1 (one) Tablet daily for 0 days Quantity: 30 {Tablet} Refills: 0 Ordered: 05-Nov-2012 Start : 06-Aug-2012 End : 05-Nov-2012 Inactive Comments: needs gen med appt Comment on above: needs gen med appt 5 ml sodium chloride 9 mg/ml injection (6 sources) Start: 12-17-2024 End: 12-18-2024 take 5-40 mL intravenously every twelve hours 5-40 mL, IntraVENous, Every 12 hours, First dose on Mon12/17/24 at 2300, For Line Patency: Peripheral IV = 5 mL; Midline or Central Line = 10 mL/lumen. If following IV push medication, administer flush at same rate as the IV push. Flush volume is determined by type of infusion therapy being given. For non-viscous solutions use: Peripheral IV = 5 mL Midline or Central Line = 10 mL/lumen For viscous solutions (i.e. blood components, parenteral nutrition, contrast media, or after obtaining blood sample) use: Peripheral IV = 10 mL Midline or Central Line = 20 mL/lumen Start: 12-17-2024 End: 12-18-2024 take 100 mL intravenously every hour as needed, then take 20 mL intravenously every hour as needed 5-250 mL/hr, IntraVENous, PRN, if patient receiving piggyback infusions and maintenance fluids are not ordered OR KVO fluids to protect IV site / prevent frequent line interruptions / long duration, Starting on Mon12/17/24 at 2245, For piggyback infusion, administer at same rate as piggyback for a total of 25 mL. Enter 25 mL into dose field and piggyback rate into rate field of order. If piggyback is infusing at a rate less than 100 mL/hr, enter 25 mL into dose field and 100 mL/hr into rate field of order. For KVO fluids, enter rate of 20 mL/hr or less into rate field of order. Start: 12-17-2024 End: 12-18-2024 5-40 mL, IntraVENous, PRN, l ine care, After every IV line use, Starting on Mon12/17/24 at 2245, For Line Patency: Peripheral IV = 5 mL; Midline or Central Line = 10 mL/lumen. If following IV push medication, administer flush at same rate as the IV push. Flush volume is determined by type of infusion therapy being given. For non-viscous solutions use: Peripheral IV = 5 mL Midline or Central Line = 10 mL/lumen For viscous solutions (i.e. blood components, parenteral nutrition, contrast media, or after obtaining blood sample) use: Peripheral IV = 10 mL Midline or Central Line = 20 mL/lumen spironolactone 25 mg oral tablet (20 sources) Aldosterone Antagonist Start: 2019 End: 08-19-2019 take 1 tablet by mouth once daily Spironolactone 25 mg tablet Discontinued 25 mg PO DAILY July 30, 2019 9:01am August 19, 2019 3:01pm Start: 07-09-2014 End: 09-30-2015 take 1 tablet by mouth once daily SPIRONOLACTONE, 50MG (Oral Tablet) 1 (one) Tablet Tablet daily for 0 days Quantity: 30 {Tablet} Refills: 0 Ordered: 12-Aug-2014 Start : 09-Jul-2014 End : 12-Aug-2014 Discontinued tamsulosin hydrochloride 0.4 mg oral capsule (20 sources) alpha-Adrenergic Anastacia Start: 12-17-2024 End: 12-18-2024 take 0.4 mg by mouth once daily 0.4 mg, Oral, Nightly, First dose on Mon12/17/24 at 2330, Do not crush, chew, or split. Start: 08-16-2016 End: 04-07-2024 take 1 capsule by mouth once daily Tamsulosin 0.4 mg capsule Discontinued 0.4 mg PO DAILY August 15, 2022 12:00am April 07, 2024 12:26am Start: 11-03-2015 End: 04-02-2019 take 2 capsules by mouth once daily Tamsulosin 0.4 MG capsule Discontinued 0.8 mg PO DAILY November 03, 2015 1:00am April 02, 2019 2:17pm Start: 11-03-2015 End: 04-02-2019 take 0.8 mg by mouth once daily Tamsulosin Discontinue d 0.8 MG PO DAILY November 03, 2015 1:00am April 02, 2019 2:17pm Start: 07-20-2015 End: 04-18-2016 take 1 capsule by mouth once daily at bedtime FLOMAX, 0.4MG (Oral Capsule) 1 (one) Capsule Capsule qhs for 0 days Quantity: 30 {Capsule} Refills: 3 Ordered: 07-Dec-2015 Amber Galeano DO, DO, Kathleen Start : 20-Jul-2015 Active Start: 12-09-2011 End: 11-05-2012 take 1 capsule by mouth once daily at bedtime TAMSULOSIN HCL, 0.4MG (Oral Capsule) 1 Capsule qhs for 0 days Quantity: 30 {Capsule} Refills: 6 Ordered: 05-Nov-2012 Start : 09-Dec-2011 End : 05-Nov-2012 Inactive Comment on above: Take 2 capsules by m outh daily at bedtime. telmisartan 40 mg oral tablet (3 sources) Angiotensin 2 Receptor Anastacia Start: 4 End: 4 take 1 tablet by mouth once daily MICARDIS, 40MG (Oral Tablet) 1 (one) Tablet daily for 0 days Quantity: 30 {Tablet} Refills: 3 Ordered: 09-Sep-2014 Start : 05-Sep-2014 End : 09-Sep-2014 Discontinued Start: 10-25-2010 End: 10-25-2010 take 1 tablet by mouth once daily MICARDIS, 40MG (Oral Tablet) 1 Tablet qd for 0 days Quantity: 30 {Tablet} Refills: 1 Ordered: 25-Oct-2010 Antonietta Browne RN Start : 25-Oct-2010 End : 25-Oct-2010 Discontinued Comments: disregard the combo rx -- fill this one please Start: 09-10-2007 End: 09-10-2007 take 1 tablet by mouth once daily MICARDIS, 40MG (Oral Tablet) 1 Tablet qd for 0 days Refills: 0 Ordered: 10-Sep-2007 Amber Galeano DO, DO, Kathleen Start : 10-Sep-2007 End : 10-Sep-2007 Discontinued Comment on above: disregard the combo rx -- fill this one please terbinafine 250 mg oral tablet (1 source) Allylamine Antifungal Start: 05-07-2017 End: 02-27-2024 terbinafine HCl (LAMISIL) 250 mg tablet 60 actuat testosterone 30 mg/actuat topical solution (2 sources) Androgen Start: 03-16-2015 End: 03-16-2015 AXIRON, 30MG/ACT (Transdermal Solution) 2 (two) Pump qam for 0 days Quantity: 1 {Bottle} Refills: 3 Ordered: 16-Mar-2015 Amber Galeano DO, DO, Kathleen Start : 16-Mar-2015 End : 16-Mar-2015 Inactive Start: 03-16-2015 End: 07-06-2015 inject 1 mL by intramuscular injection every month TESTOSTERONE CYPIONATE, 200MG/ML (Intramuscular Solution) 1 (one) ml ml q month for 0 days Quantity: 1 {Bottle} Refills: 3 Ordered: 06-Jul-2015 Ravindra Yola Start : 16-Mar-2015 End : 06-Jul-2015 Discontinued traMADol hydrochloride 50 mg oral tablet (1 source) Opioid Agonist Start: 02-15-2017 End: 02-27-2024 traMADol (ULTRAM) 50 mg tablet ubidecarenone 200 mg oral capsule (1 source) Start: 04-03-2015 End: 2015 take 1 capsule by mouth once daily CO Q10 MAXIMUM STRENGTH, 200MG (Oral Capsule) 1 (one) Capsule Capsule daily for 0 days Quantity: 30 {Capsule} Refills: 0 Ordered: 03-Jul-2015 Linda Lopez LPN Start : 03-Apr-2015 End : 03-Jul-2015 Discontinued valsartan 160 mg oral tablet (1 source) Angiotensin 2 Receptor Naastacia Start: 03-07-2012 End: 03-13-2012 take 1 tablet by mouth once daily DIOVAN, 160MG (Oral Tablet) 1 Tablet qd for 0 days Quantity: 30 {Tablet} Refills: 3 Ordered: 13-Mar-2012 Ravindra Yola Start : 07-Mar-2012 End : 13-Mar-2012 Inactive vitamin b12 1 mg oral capsule (12 sources) Vitamin B12 Start: 03-29-2019 End: 04-02-2019 take 1 capsule by mouth once daily Cyanocobalamin (Vitamin B-12) 1,000 mcg capsule Discontinued 1000 ug PO DAILY March 29, 2019 12:00am April 02, 2019 2:16pm Start: 09-24-2013 End: 10-24-2013 VITAMIN B 12, 100MCG (Oral L ozenge) 1 Lozenge qd for 30 days Quantity: 30 {Lozenge} Refills: 0 Ordered: 18-Nov-2013 Yola Waite Start : 24-Sep-2013 End : 24-Oct-2013 Inactive Comments: otc Comment on above: otc vitamin b6 100 mg oral tablet (6 sources) End: 12-26-2016 take 1 tablet by mouth once daily VITAMIN B-6 100 MG TABS One tablet by mouth daily PYRIDOXINE HCL [id number] Alix Arguello Problems Active Problems Problem Classification Problem Date Documented Da te Episodic/Chronic Abdominal pain (2 sources) Abdominal pain; Translations: [Abdominal pain] 12-07-2015 Episodic Comment on above: below belt Acute cerebrovascular disease (20 sources) Hematoma of subdural space of neuraxis; Translations: [Subdural hematoma (HCC)] Onset: 5 12-18-2024 Chronic Anxiety disorders (15 sources) Anxiety; Translations: [Anxiety] 12-07-2015 Chronic Comment on above: stopping paxil secon ra to feeling weakness muscle fatigue easily anxiouscymbal ta is slowing racing thoughts Cancer of colon (20 sources) Malignant tumor of colon; Translations: [Colon cancer] Onset: 5 09-30-2015 Chronic Comment on above: diagnosed per colono scopy per Dr. Alvarado Cancer of colon (16 sources) History of malignant neoplasm of colon; Translations: [Personal history of other malignant neoplasm of large intestine] Onset: 7 08-07-2017 Episodic Comment on above: No clinical evidence of disease. Cancer of prostate (20 sources) Malignant tumor of prostate; Translations: [Malignant neoplasm of prostate] Onset: 6 04-21-2021 Chronic Comment on above: No clinical evidence of disease. 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] Onset: 6 01-25-2016 Chronic Disorders of lipid metabolism (20 sources) Mixed hyperlipidemia; Translations: [Mixed hyperlipidemia] 12-07-2015 Chronic Comment on above: on simvastatin Diverticulosis and diverticulitis (2 sources) Diverticulitis of intestine; Translations: [Diverticulitis] 12-07-2015 Chronic E Codes: Fall (4 sources) Fall; Translations: [Unspecified fall, initial encounter] Onset: 5 12-18-2024 Episodic Esophageal disorders (1 source) Gastroesophageal reflux disease; Translations: [Chronic GERD] 12-07-2015 Chronic Esophageal disorders (1 source) Esophageal disorders Essential hypertension (20 sources) Hypertensive disorder; Translations: [Benign essential hypertension] Onset: 6 09-30-2015 Chronic Comment on above: had been very well c ontrolled on amlodipine, had tried many others now will add hctz and amlodipinesince had test was given prednisone, the BP went up, he took only hctz, but not good enough so now adding both hctz and amlodipine, he Now on losartan 50mg bid BPs 137/89 to low 109/78always feeling dizzi and nauseated, Fluid and electrolyte disorders (15 sources) Hypokalemia; Translations: [Hypokalemia] Onset: 4 05-21-2014 Episodic Comment on above: on chlorthalidone wi ll DC chlorthalidone, K improving DC potassium now Headache; including migraine (1 source) Migraine; Translations: [Migraine, unspecified, not intractable, without status migrainosus] 04-20-2025 Chronic Headache; including migraine (16 sources) Headache; Translations: [Headache] 12-07-2015 Episodic Comment on above: ct neg /mri neg -- s eems to be MS in nature- wiht muscle tension and possible disc- based on 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 exam-- 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 to see if clinical improvement to aviod mri right away -- if no better do mri cervical spine Hyperplasia of prostate (20 sources) Benign prostatic hyperplasia; Translations: [Benign prostatic hyperplasia with lower urinary tract symptoms] Onset: 6 02-23-2016 Chronic Immunizations and screening for infectious disease (3 sources) Needs influenza immunization; Translations: [Need for prophylactic vaccination and inoculation against influenza] 12-07-2015 Episodic Intracranial injury (3 sources) Concussion with loss of consciousness; Translations: [Concussion with loss of consciousness of unspecified duration, initial encounter] 02-18-2025 Episodic Lymphadenitis (2 sources) Lymphadenopathy; Translations: [Lymphadenopathy] 12-07-2015 Episodic Mood disorders (2 sources) Depressive disorder; Translations: [Depression] 12-07-2015 Chronic Comment on above: depression and pain syndrome lack of sleep thru night if not better with flomax consider savella Nausea and vomiting (11 sources) Nausea; Translations: [Nausea] 12-07-2015 Episodic Comment on above: abnormal ultrasound of gallbladder add HIDA scan and refer to Dr. Juanito Solomon did not think need gallbladder out Nonmalignant breast conditions (3 sources) Gynecomastia; Translations: [Gynecomastia] 12-07-2015 Episodic Comment on above: with nipple tenderne ss likely related to spirolactone decreasing BP meds n ow better not gone yet Nonspecific chest pain (2 sources) Chest pain; Translations: [Chest pain, unspecified] Onset: 5 04-20-2025 Episodic Nutritional deficiencies (1 source) Unspecified vitamin D deficiency; Translations: [Vitamin D deficiency disease] 12-07-2015 Chronic Nutritional deficiencies (1 source) Cobalamin deficiency; Translations: [B12 deficiency] 12-07-2015 Episodic Occlusion or stenosis of precerebral arteries (1 source) Occlusion and stenosis of unspecified carotid artery; Translations: [Occlusion and stenosis of unspecified carotid artery] Onset: 5 Chronic Other connective tissue disease (1 source) Cramp; Translations: [Muscle cramp] 12-07-2015 Episodic Comment on above: debilitating unable to get out of bed last checked myoglobin Other connective tissue disease (1 source) Muscle pain; Translations: [Myalgia] 12-07-2015 Episodic Comment on above: and or pain malaise, fatiguePt says Dr. Webster suggests stop losartan see if it helps with muscel pain relief Other connective tissue disease (5 sources) Myalgia Episodic Other connective tissue disease (1 source) Muscle weakness Episodic Other endocrine disorders (2 sources) Hypotestosteronism; Translations: [Low testosterone] 07-08-2015 Episodic Comment on above: he will research jose simpson Other gastrointestinal disorders (11 sources) Constipation; Translations: [Constipation, unspecified] 02-19-2019 Episodic Other infections; including parasitic (2 sources) Lyme disease; Translations: [Lyme disease] 12-07-2015 Episodic Comment on above: equivical pos 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 Other injuries and conditions due to external causes (4 sources) Closed injury of head; Translations: [Unspecified injury of head, initial encounter] 01-16-2025 Episodic Other liver diseases (2 sources) Steatosis of liver; Translations: [Fatty liver] 12-07-2015 Chronic Other lower respiratory disease (11 sources) Chronic cough; Translations: [Chronic cough] 07-23-2019 Episodic Other lower respiratory disease (4 sources) Dyspnea; Translations: [Dyspnea, unspecified] 12-10-2024 Episodic Other nervous system disorders (3 sources) Polyneuropathy due to drug; Translations: [Drug-induced polyneuropathy] Onset: 6 04-04-2016 Chronic Other nervous system disorders (11 sources) Peripheral nerve disease ; Translations: [Polyneuropathy, unspecified] 03-29-2019 Chronic Comment on above: improved Other nervous system disorders (11 sources) Chronic pain syndrome; Translations: [Chronic pain syndrome] 02-19-2019 Chronic Other nervous system disorders (20 sources) Chronic pain; Translations: [Other chronic pain] Onset: 7 12-26-2016 Chronic Other nervous system disorders (1 source) Polyneuropathy, unspecified; Translations: [Polyneuropathy, unspecified] Onset: 5 Chronic Other nutritional; endocrine; and metabolic disorders (9 sources) Hypomagnesemia; Translations: [Hypomagnesemia] Onset: 4 05-21-2014 Chronic Comment on above: taking one mag ox da velia Other nutritional; endocrine; and metabolic disorders (4 sources) Hypophosphatemia; Translations: [Hypophosphatemia] 12-07-2015 Chronic Other nutritional; endocrine; and metabolic disorders (1 source) Increased thirst; Translations: [Increased thirst] 12-07-2015 Episodic Comment on above: drinks water Other screening for suspected conditions (not mental disorders or infectious disease) (11 sources) Imaging of thorax abnormal; Translations: [Abnormal findings on diagnostic imaging of other specified body structures] 07-23-2019 Chronic Other skin disorders (18 sources) Sebaceous cyst of skin; Translations: [Sebaceous cyst] 10-18-2022 Episodic Comment on above: removed from back Other skin disorders (1 source) Sebaceous cyst; Translations: [Sebaceous cyst] Episodic Pancreatic disorders (not diabetes) (1 source) Disorder of pancreas; Translations: [Fatty pancreas] 12-07-2015 Episodic Pulmonary heart disease (14 sources) Pulmonary embolism; Translations: [Other pulmonary embolism without acute cor pulmonale] Onset: 6 06-28-2016 Episodic Residual codes; unclassified (11 sources) Daytime somnolence; Translations: [Other hypersomnia] 04-22-2020 Chronic Residual codes; unclassified (3 sources) Insomnia; Translations: [Insomnia] 12-07-2015 Episodic Comment on above: amytripyline did no work, unable to function on it and thinks made nauseated Spondylosis; intervertebral disc disorders; other back problems (1 source) Degeneration of cervical intervertebral disc; Translations: [DEGENERATION, CERVICAL DISC] 12-07-2015 Chronic Comment on above: celebrex not helping , neurontin not helping, flexeril not helping does not want PT Substance-related disorders (14 sources) Benzodiazepine dependence; Translations: [Sedative, hypnotic or anxiolytic dependence, uncomplicated] Onset: 8 09-11-2022 Chronic Thyroid disorders (2 sources) Hypothyroidism; Translations: [Hypothyroidism, unspecified] 02-27-2025 Chronic Unclassified (20 sources) Unclassified (2 sources) Colon cancer Unclassified (3 sources) Elevated PSA Unclassified (2 sources) Increased thirst Unclassified (2 sources) NONSPECIFIC FINDINGS ON EXAMINATION OF BLOOD, OTHER ABNORMAL BLOOD CHEMISTRY (790.6) Unclassified (1 source) Traumatic subdural hemorrhage with loss of consciousness status unknown, initial encounter ([facility]); Translations: [Traumatic subdural hemorrhage with loss of consciousness status unknown, initial encounter ([facility])] Onset: 5 Urinary tract infections (20 sources) Irradiation cystitis; Translations: [Irradiation cystitis without hematuria] Onset: 4 02-27-2024 Episodic Past or Other Problems Problem Classification Problem Date Documented Da te Episodic/Chronic Administrative/social admission (3 sources) Other specified counseling; Translations: [Other specified counseling] Onset: 10-15-2015 10-19-2015 Episodic E Codes: Fall (2 sources) Fall 12-18-2024 Genitourinary symptoms and ill-defined conditions (20 sources) Nocturia; Translations: [Nocturia] Onset: 02-23-2016 12-07-2015 Episodic Comment on above: q30 min Malaise and fatigue (20 sources) Fatigue; Translations: [Fatigue] Onset: 05-21-2014 05-21-2014 Episodic Comment on above: feeling of being turner ined all the time Other aftercare (3 sources) Other tank terminal gauger (current) drug therapy; Translations: [Other tank terminal gauger (current) drug therapy] Onset: 01-11-2016 01-11-2016 Episodic Other injuries and conditions due to external causes (1 source) Unspecified injury of head, initial encounter; Translations: [Unspecified injury of head, initial encounter] Onset: 05-07-2025 Episodic Other lower respiratory disease (1 source) Shortness of breath; Translations: [Shortness of breath] Onset: 05-07-2025 Episodic Other screening for suspected conditions (not mental disorders or infectious disease) (20 sources) Ultrasound scan abnormal; Translations: [Abnormal ultrasound of gallbladder] Onset: 02-23-2016 12-07-2015 Episodic Comment on above: enlarged gallbladder and gallbladder hydrops, check Hida scan send to [place] treating colon first then look at prostate elevated LFTwill hol d chol med before do all expensive workup Phlebitis; thrombophlebitis and thromboembolism (20 sources) Venous thrombosis; Translations: [Acute embolism and thrombosis of unspecified vein] Onset: 08-03-2016 11-23-2021 Episodic Spondylosis; intervertebral disc disorders; other back problems (5 sources) Neck pain; Translations: [Neck pain] Onset: 05-07-2025 12-07-2015 Episodic Comment on above: 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, 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 describes neck shoulder and head pain and on top of head Unclassified (20 sources) Unspecified Diagnosis 12-07-2015 Unclassified (10 sources) Low testosterone Unclassified (4 sources) Muscle cramp Unclassified (3 sources) Nipple soreness Unclassified (1 source) Fatty pancreas Unclassified (1 source) Abnormal ultrasound of gallbladder Unclassified (3 sources) B12 deficiency Unclassified (2 sources) Vitamin D deficiency disease (268.9) Unclassified (3 sources) DEGENERATION, CERVICAL DISC (722.4) Unclassified (7 sources) ANXIETY DISORDER, GENERALIZED (300.02) Unclassified (1 source) SCREENING FOR CANCER OF THE PROSTATE (V76.44) Unclassified (11 sources) s/p port placement 06-17-2022 Unclassified (1 source) Traumatic subdural hemorrhage with loss of consciousness status unknown, initial encounter ([facility]); Translations: [Traumatic subdural hemorrhage with loss of consciousness status unknown, initial encounter ([facility])] Onset: 01-01-2025 Results Test Name Value Interpretation Reference Range Facility CTA Head AND Neck W/ Contras ton 07-01-2025 CTA Head AND Neck W/ Contrast [facility] Imaging Services [address] [place] [address] [id number] CTA Head AND Neck W/ Contrast MR#: [id number] Acct: [id number] 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 Edwin Donald MD Status: REG CLI Study: CTA Head AND Neck W/ Contrast Date of Exam: Exam# [id number] Ordering Dr: Edwin Donald MD PROCEDURE: CTA HEAD AND NECK W/ CONTRAST 07/01/2025 REASON FOR EXAM: CAROTID ARTERY STENOSIS TECHNIQUE: CTA HEAD AND NECK W/ CONTRAST Multiplanar Sagittal and Coronal images were obtained. CONTRAST: Isovue 370 VOLUME: 100 mL One or more dose reduction techniques were used (e.g., Automated exposure control, adjustment of the mA and/or kV according to patient size, use of iterative reconstruction technique). RADIATION DOSE SUMMARY: CTDlvol: 31.5 mGy DLP: 1588.44 mGycm COMPARISON: None FINDINGS: Aortic Arch: Normal size and branching pattern. Mild atherosclerotic plaque. Brachiocephalic and Subclavians: Unremarkable RIGHT Carotid: Right CCA: Unremarkable. Right ICA: Unremarkable. Right ECA: Unremarkable. LEFT Carotid: Left CCA: Unremarkable. Left ICA: Unremarkable. Left ECA: Unremarkable. Vertebrals: Dominant left vertebral artery RIGHT Vertebral: Unremarkable. LEFT Vertebral: Unremarkable. Anatomy: [place] of [place] anatomy is normal. Aneurysm or avm: No intracranial aneurysms or large vascular malformations are identified. Anterior cerebral arteries: Unremarkable: Middle cerebral arteries: Unremarkable. Basilar artery: Unremarkable. Posterior cerebral arteries: Unremarkable. Other major branches of the posterior circulation: Unremarkable. Major venous structures: Unremarkable. Other findings: Neck: No lymphadenopathy. Lungs: Lung apices are clear. Bones: Unenhanced brain is unremarkable. CT/CTA Head AND Neck W/ Contrast IMPRESSION: Dominant left vertebral artery. No significant stenosis is seen. Reading Location: [id number] CC: Dr. Edwin Donald MD Accounting Software Specialist: Signed Normal [facility] CBC W/Diff, Automatedon 07- Absolute Lymph 2.02 X10 3/uL Normal 0.83-4.51 [facility] Comment on above: Performed By: #### L 506.1001, L501.9520, L501.9910, L500.4050, L100.0100 #### [facility] [address] [place], [address] Absolute Neut 2.5 X10 3/uL Normal 2.0-7.7 [facility] Comment on above: Performed By: #### L 506.1001, L501.9520, L501.9910, L500.4050, L100.0100 #### [facility] [address] [place], [address] Basophils/100 WBC (Bld) 0.8 % Normal 0-1 [facility] Comment on above: Performed By: #### L 506.1001, L501.9520, L501.9910, L500.4050, L100.0100 #### [facility] [address] [place], [address] Eosinophils/100 WBC (Bld) 3.2 % Normal 0-5 [facility] Comment on above: Performed By: #### L 506.1001, L501.9520, L501.9910, L500.4050, L100.0100 #### [facility] [address] [place], [address] Erythrocyte distribution width (RBC) [Ratio] 12.9 % Normal 11.6-14.6 [facility] Comment on above: Performed By: #### L 506.1001, L501.9520, L501.9910, L500.4050, L100.0100 #### [facility] [address] [place], [address] Hematocrit (Bld) [Volume fraction] 42.5 % Normal 40-54 [facility] Comment on above: Performed By: #### L 506.1001, L501.9520, L501.9910, L500.4050, L100.0100 #### [facility] [address] [place], [address] Hemoglobin (Bld) [Mass/Vol] 14.2 g/dL Normal 13.0-16.5 [facility] Comment on above: Performed By: #### L 506.1001, L501.9520, L501.9910, L500.4050, L100.0100 #### [facility] [address] [place], [place], [address] IG% 0.200 Normal 0.0-0.9 [facility] Comment on above: Result Comment: IG% - Immature Granulocytes (promyelocytes, myelocytes and metamyelocytes) > 1% indicates that a LEFT SHIFT is Present. Performed By: #### L 506.1001, L501.9520, L501.9910, L500.4050, L100.0100 #### [facility] [address] [place], [address] Lymphocytes/100 WBC (Bld) 40.1 % Normal 19-41 [facility] Comment on above: Performed By: #### L 506.1001, L501.9520, L501.9910, L500.4050, L100.0100 #### [facility] [address] [place], [address] MCH (RBC) [Entitic mass] 29.2 pg Normal 27.0-32.0 [facility] Comment on above: Performed By: #### L 506.1001, L501.9520, L501.9910, L500.4050, L100.0100 #### [facility] [address] [place], [address] MCHC (RBC) [Mass/Vol] 33.4 g/dL Normal 32-36 [facility] Comment on above: Performed By: #### L 506.1001, L501.9520, L501.9910, L500.4050, L100.0100 #### [facility] [address] [place], [address] MCV (RBC) [Entitic vol] 87.3 fL Normal 80-94 [facility] Comment on above: Performed By: #### L 506.1001, L501.9520, L501.9910, L500.4050, L100.0100 #### [facility] [address] [place], [address] Monocytes/100 WBC (Bld) 5.8 % Normal 0-10 [facility] Comment on above: Performed By: #### L 506.1001, L501.9520, L501.9910, L500.4050, L100.0100 #### [facility] [address] [place], [address] Neutrophils/100 WBC (Bld) 49.9 % Normal 47-70 [facility] Comment on above: Performed By: #### L 506.1001, L501.9520, L501.9910, L500.4050, L100.0100 #### [facility] [address] [place], [address] Nucleated RBC (Bld) [#/Vol] 0 10*3/uL Normal 0-5 [facility] Comment on above: Performed By: #### L 506.1001, L501.9520, L501.9910, L500.4050, L100.0100 #### [facility] [address] [place], [address] Platelet mean volume (Bld) [Entitic vol] 10.2 fL Normal 6.2-12.0 [facility] Comment on above: Performed By: #### L 506.1001, L501.9520, L501.9910, L500.4050, L100.0100 #### [facility] [address] [place], [address] Platelets (Bld) [#/Vol] 199 10*3/uL Normal 150-450 [facility] Comment on above: Performed By: #### L 506.1001, L501.9520, L501.9910, L500.4050, L100.0100 #### [facility] [address] [place], [address] RBC (Bld) [#/Vol] 4.87 10*6/uL Normal 4.6-6.2 [facility] Comment on above: Performed By: #### L 506.1001, L501.9520, L501.9910, L500.4050, L100.0100 #### [facility] [address] [place], [address] RDW SD 40.9 fl Normal 35.1-43.9 [facility] Comment on above: Performed By: #### L 506.1001, L501.9520, L501.9910, L500.4050, L100.0100 #### [facility] [address] [place], [address] WBC (Bld) [#/Vol] 5.0 10*3/uL Normal 4.4-11.0 [facility] Comment on above: Performed By: #### L 506.1001, L501.9520, L501.9910, L500.4050, L100.0100 #### [facility] [address] [place], [address] Comprehensive Metabolic Prof [facility] 06-09-2025 Albumin [Mass/Vol] 4.2 g/dL Normal 3.4-4.8 [facility] Comment on above: Performed By: #### L 506.1001, L501.9520, L501.9910, L500.4050, L100.0100 #### [facility] [address] [place], [address] Albumin/Globulin [Mass ratio] 1.7 {ratio} Normal 0.9-2.4 [facility] Comment on above: Performed By: #### L 506.1001, L501.9520, L501.9910, L500.4050, L100.0100 #### [facility] [address] [place], [address] ALK PHOS 63 U/L Normal 40-129 [facility] Comment on above: Performed By: #### L 506.1001, L501.9520, L501.9910, L500.4050, L100.0100 #### [facility] [address] [place], [address] ALT [Catalytic activity/Vol] 22 U/L Normal <=46 [facility] Comment on above: Performed By: #### L 506.1001, L501.9520, L501.9910, L500.4050, L100.0100 #### [facility] [address] [place], [address] AST [Catalytic activity/Vol] 25 U/L Normal <=37 [facility] Comment on above: Performed By: #### L 506.1001, L501.9520, L501.9910, L500.4050, L100.0100 #### [facility] [address] [place], [address] Bilirubin [Mass/Vol] 0.34 mg/dL Normal 0.00-1.30 [facility] Comment on above: Performed By: #### L 506.1001, L501.9520, L501.9910, L500.4050, L100.0100 #### [facility] [address] [place], [address] BUN/CRE 17.1 RATIO Normal 10-20 [facility] Comment on above: Performed By: #### L 506.1001, L501.9520, L501.9910, L500.4050, L100.0100 #### [facility] [address] [place], [address] Calcium [Mass/Vol] 9.4 mg/dL Normal 7.6-11.0 [facility] Comment on above: Performed By: #### L 506.1001, L501.9520, L501.9910, L500.4050, L100.0100 #### [facility] [address] [place], [address] Chloride [Moles/Vol] 108 mmol/L Normal 98-108 [facility] Comment on above: Performed By: #### L 506.1001, L501.9520, L501.9910, L500.4050, L100.0100 #### [facility] [address] [place], [address] CO2 [Moles/Vol] 23.4 mmol/L Normal 21.0-32.0 [facility] Comment on above: Performed By: #### L 506.1001, L501.9520, L501.9910, L500.4050, L100.0100 #### [facility] [address] [place], [address] Creatinine [Mass/Vol] 1.00 mg/dL Normal 0.70-1.20 [facility] Comment on above: Performed By: #### L 506.1001, L501.9520, L501.9910, L500.4050, L100.0100 #### [facility] [address] [place], [address] GAP 10 Normal 5-15 [facility] Comment on above: Performed By: #### L 506.1001, L501.9520, L501.9910, L500.4050, L100.0100 #### [facility] [address] [place], [address] GFR/1.73 sq M.predicted among non-blacks MDRD (S/P/Bld) [Vol rate/Area] 82 mL/min/{1.73_m2} Normal >60 [facility] Comment on above: Result Comment: mL/m in/1.73m2 CKD-EPI Creatinine Equation (2020) Performed By: #### L 506.1001, L501.9520, L501.9910, L500.4050, L100.0100 #### [facility] [address] [place], [address] Globulin (S) [Mass/Vol] 2.5 g/dL Normal 2.2-4.2 [facility] Comment on above: Performed By: #### L 506.1001, L501.9520, L501.9910, L500.4050, L100.0100 #### [facility] [address] [place], [address] Glucose [Mass/Vol] 84 mg/dL Normal 70-99 [facility] Comment on above: Performed By: #### L 506.1001, L501.9520, L501.9910, L500.4050, L100.0100 #### [facility] [address] [place], [address] Potassium [Moles/Vol] 4.2 mmol/L Normal 3.3-5.1 [facility] Comment on above: Performed By: #### L 506.1001, L501.9520, L501.9910, L500.4050, L100.0100 #### [facility] [address] [place], [address] Sodium [Moles/Vol] 142 mmol/L Normal 133-145 [facility] Comment on above: Performed By: #### L 506.1001, L501.9520, L501.9910, L500.4050, L100.0100 #### [facility] [address] [place], [address] T PROT 6.7 g/dL Normal 5.9-8.4 [facility] Comment on above: Performed By: #### L 506.1001, L501.9520, L501.9910, L500.4050, L100.0100 #### [facility] [address] [place], [address] Urea nitrogen [Mass/Vol] 17 mg/dL Normal 4-19 [facility] Comment on above: Performed By: #### L 506.1001, L501.9520, L501.9910, L500.4050, L100.0100 #### [facility] [address] [place], [address] Oncology Visit Reporton 05-27 Oncology Visit Report [facility] 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 ??? He underwent colonoscopy on 08/28/2015 under the care of Dr. Alvarado, which revealed a proximal sigmoid colon mass at 40 cm, the pathology showed invasive, well to moderately-differentiated adenocarcinoma.??? He underwent sigmoidectomy under the care of Dr. Morel on 09/07/2015.??? The mass was nearly obstructing.??? Final pathology showed moderate to poorly-differentiated colonic adenocarcinoma with mucinous features, tumor measured 6.2 x 3.6 x 0.6 cm and invaded through the muscularis propria and was present at the inked serosal surface. Three out of 13 lymph nodes were positive for metastatic disease; thus, final pathologic stage was pT4a, N1b, M0 with additional findings of hyperplastic polyps.??? Staging PET CT obtained 10/14/2015 was negative for metastatic disease.??? CEA at the time of diagnosis was 2.5. ??? He completed 12 cycles of FOLFOX from 10/19/2015 through 04/04/2016. His care was complicated by a pulmonary embolism in November of 2015 and??? developed grade 2 peripheral neuropathy so Oxaliplatin was completely omitted with cycles 11 and 12. ??? He underwent radioactive seed implantation in July 2016 at [facility] for??? Prostate Cancer. CT in August 2018 showed no evidence of disease. He is on observation, comes for follow up.??? He still has numbness and pain in the lower legs and pain in the feet. [facility] Medical History Brain bleed Vitamin B12 deficiency BPH (benign prostatic hyperplasia) Subdural hematoma Opioid dependence Anxiety Migraines Peripheral neuropathy Degenerative cervical disc Hyperglycemia Vitamin D deficiency Myalgia Vertigo Hyperlipidemia Prostate cancer Colon cancer HTN (hypertension) Surgical History s/p port placement History of colon resection Family History Brother Heart disease Myocardial infarction Social History household members: significant other housing: house Smoking Status: Former smoker alcohol intake: never Intake Vital Signs 04/20/25 14:22 06/09/25 11:00 Height 6 ft 6 ft Weight: 106.821 kg BMI 31.9 BP 136/79 H Blood Pressure Location Lt brachial Position Sitting Respiration 18 Pulse 52 L Pulse Source Monitor Temp 98.4 F Temperature Source Temporal Artery Pulse Oximetry (%) 95 Oxygen Delivery Method room air Intake Is patient in pain?: No Allergies amlodipine Allergy (Unknown, Verified 06/09/25 11:03) Unknown Medications ???Medication ???Instructions ???Recorded ???Confirmed ???Type pravastatin 40 mg tablet 40 mg PO QHS 01/16/18 06/09/25 His tory polyethylene glycol 3350 17 17 g PO DAILY 03/29/19 06/09/25 Hi story gram/dose oral powder multivitamin 1 tab PO DAILY 04/02/19 06/09/25 H istory gabapentin 300 mg capsule 300 mg PO BIDCM PRN numbness and 0 04/22/20 06/09/25 History tingling levothyroxine 25 mcg tablet 25 mcg PO DAILY 04/07/24 06/09/25 History clonidine HCl 0.1 mg tablet 0.1 mg PO Q8H PRN hypertensive 3 02/17/25 06/09/25 Rx days #9 tabs clonidine HCl 0.1 mg tablet 0.1 mg PO BID 14 days #28 tabs 02/1806/09/25 Rx ondansetron 4 mg disintegrating 4 mg PO Q8H PRN PRN Nausea #10 tab s 04/20/25 06/09/25 Rx tablet valsartan 320 mg tablet 320 mg PO QHS 05/05/25 06/09/25 Hi story buprenorphine 8 mg-naloxone 2 mg 0.25 tab sublingual QDAY 06/09/25 06/09/25 History sublingual tablet Have you fallen in the past year?: Yes (November 2024- brain bleed) Central Venous Access Central Venous Access: No Laboratory Tests 04/10/17 10/17/17 07/10/18 13:59 12:55 10:37 WBC Hgb Hct Plt Count Absolute Neuts (auto) Absolute Lymphs (auto) ESR Sodium Potassium Chloride Carbon Dioxide BUN Creatinine Est GFR (MDRD) Af Amer Est GFR (MDRD) Non-Af BUN/Creatinine Ratio Glucose Calcium Total Bilirubin AST ALT Alkaline Phosphatase Total Creatine Kinase Total Protein Albumin M-Edgar Globulin Albumin/Globulin Ratio Carcinoembryonic Ag 1.4 0.8 0.9 Total PSA PSA Screen Total Testosterone IgG IgA IgM Free [place] LC, Quant (more content not included)... Normal [facility] PSA,Total - Annual Screenon 06-09-2025 PSA,TOT SCREEN < 0.02 Low 0.02-4.00 [facility] Comment on above: Result Comment: This test was performed using the [employer] tPSA method. Measured values of a patient??sample can vary depending on the testing procedure used. PSA values determined on patient samples by different testing procedures cannot be used interchangeably. If there is a change in PSA assays while monitoring therapy, sequential testing should be performed to confirm baseline values. Performed By: #### L 506.1001, L501.9520, L501.9910, L500.4050, L100.0100 #### [facility] [address] [place], [address] Thyroid Stim Hormone (TSH)on 06-09-2025 TSH 2.610 uIU/mL Normal 0.300-4.20 0 [facility] Comment on above: Performed By: #### L 506.1001, L501.9520, L501.9910, L500.4050, L100.0100 #### [facility] [address] [place], [address] Vitamin D,25 Hydroxyon 06-09 Vitamin D 25-OH 34.8 ng/mL Normal 30-100 [facility] Comment on above: Result Comment: Livier min D Status Deficiency: <20 ng/mL (50nmol/L) Insufficiency: 20-30 ng/mL (50-75 nmol/L) Sufficiency: 30-100 ng/mL (75-250 nmol/L) Toxicity: >100 ng/mL (>250 nmol/L) Performed By: #### L 506.1001, L501.9520, L501.9910, L500.4050, L100.0100 #### [facility] [address] [place], [place], [id number] Carcinoembryonic Antigenon 0 - CEA 0.9 ng/mL Normal 0.0-4.7 [facility] Comment on above: Result Comment: Nons mokers <3.9 Smokers <5.6 [employer] Electrochemiluminescence Immunoassay (ECLIA) Values obtained with different assay methods or kits cannot be used interchangeably. Results cannot be interpreted as absolute evidence of the presence or absence of malignant disease. Performed at: [address] [id number] Associate Programmer Analyst: Bart Martin PhD, Phone: [phone] Performed By: #### L 506.1001, L501.9520, L501.9910, L500.4050, L100.0100 #### [facility] [address] [place], [place], [id number] CBC W/Diff, Automatedon 07-0 Absolute Lymph 1.61 X10 3/uL Normal 0.83-4.51 [facility] Comment on above: Performed By: #### L 506.1001, L501.9520, L501.9910, L500.4050, L100.0100 #### [facility] [address] [facility]. [place], [place], [id number] Absolute Neut 1.8 X10 3/uL Low 2.0-7.7 [facility] Comment on above: Performed By: #### L 506.1001, L501.9520, L501.9910, L500.4050, L100.0100 #### [facility] [address] [place], [address] Basophils/100 WBC (Bld) 1.0 % Normal 0-1 [facility] Comment on above: Performed By: #### L 506.1001, L501.9520, L501.9910, L500.4050, L100.0100 #### [facility] [address] [place], [address] Eosinophils/100 WBC (Bld) 3.6 % Normal 0-5 [facility] Comment on above: Performed By: #### L 506.1001, L501.9520, L501.9910, L500.4050, L100.0100 #### [facility] [address] [place], [address] Erythrocyte distribution width (RBC) [Ratio] 12.7 % Normal 11.6-14.6 [facility] Comment on above: Performed By: #### L 506.1001, L501.9520, L501.9910, L500.4050, L100.0100 #### [facility] [address] [place], [address] Hematocrit (Bld) [Volume fraction] 41.8 % Normal 40-54 [facility] Comment on above: Performed By: #### L 506.1001, L501.9520, L501.9910, L500.4050, L100.0100 #### [facility] [address] [place], [address] Hemoglobin (Bld) [Mass/Vol] 13.8 g/dL Normal 13.0-16.5 [facility] Comment on above: Performed By: #### L 506.1001, L501.9520, L501.9910, L500.4050, L100.0100 #### [facility] [address] [place], [address] IG% 0.300 Normal 0.0-0.9 [facility] Comment on above: Result Comment: IG% - Immature Granulocytes (promyelocytes, myelocytes and metamyelocytes) > 1% indicates that a LEFT SHIFT is Present. Performed By: #### L 506.1001, L501.9520, L501.9910, L500.4050, L100.0100 #### [facility] [address] [place], [address] Lymphocytes/100 WBC (Bld) 41.2 % High 19-41 [facility] Comment on above: Performed By: #### L 506.1001, L501.9520, L501.9910, L500.4050, L100.0100 #### [facility] [address] [place], [address] MCH (RBC) [Entitic mass] 29.4 pg Normal 27.0-32.0 [facility] Comment on above: Performed By: #### L 506.1001, L501.9520, L501.9910, L500.4050, L100.0100 #### [facility] [address] [place], [address] MCHC (RBC) [Mass/Vol] 33.0 g/dL Normal 32-36 [facility] Comment on above: Performed By: #### L 506.1001, L501.9520, L501.9910, L500.4050, L100.0100 #### [facility] [address] [place], [address] MCV (RBC) [Entitic vol] 88.9 fL Normal 80-94 [facility] Comment on above: Performed By: #### L 506.1001, L501.9520, L501.9910, L500.4050, L100.0100 #### [facility] [address] [place], [address] Monocytes/100 WBC (Bld) 6.9 % Normal 0-10 [facility] Comment on above: Performed By: #### L 506.1001, L501.9520, L501.9910, L500.4050, L100.0100 #### [facility] [address] [place], [address] Neutrophils/100 WBC (Bld) 47.0 % Normal 47-70 [facility] Comment on above: Performed By: #### L 506.1001, L501.9520, L501.9910, L500.4050, L100.0100 #### [facility] [address] [place], [address] Nucleated RBC (Bld) [#/Vol] 0 10*3/uL Normal 0-5 [facility] Comment on above: Performed By: #### L 506.1001, L501.9520, L501.9910, L500.4050, L100.0100 #### [facility] [address] [place], [address] Platelet mean volume (Bld) [Entitic vol] 10.4 fL Normal 6.2-12.0 [facility] Comment on above: Performed By: #### L 506.1001, L501.9520, L501.9910, L500.4050, L100.0100 #### [facility] [address] [place], [address] Platelets (Bld) [#/Vol] 196 10*3/uL Normal 150-450 [facility] Comment on above: Performed By: #### L 506.1001, L501.9520, L501.9910, L500.4050, L100.0100 #### [facility] [address] [place], [address] RBC (Bld) [#/Vol] 4.70 10*6/uL Normal 4.6-6.2 [facility] Comment on above: Performed By: #### L 506.1001, L501.9520, L501.9910, L500.4050, L100.0100 #### [facility] [address] [place], [address] RDW SD 41.6 fl Normal 35.1-43.9 [facility] Comment on above: Performed By: #### L 506.1001, L501.9520, L501.9910, L500.4050, L100.0100 #### [facility] [address] [place], [address] WBC (Bld) [#/Vol] 3.9 10*3/uL Low 4.4-11.0 [facility] Comment on above: Performed By: #### L 506.1001, L501.9520, L501.9910, L500.4050, L100.0100 #### [facility] [address] [place], [address] Comprehensive Metabolic Prof [facility] 06-03-2025 Albumin [Mass/Vol] 4.3 g/dL Normal 3.4-4.8 [facility] Comment on above: Performed By: #### L 506.1001, L501.9520, L501.9910, L500.4050, L100.0100 #### [facility] [address] [place], [address] Albumin/Globulin [Mass ratio] 1.8 {ratio} Normal 0.9-2.4 [facility] Comment on above: Performed By: #### L 506.1001, L501.9520, L501.9910, L500.4050, L100.0100 #### [facility] [address] [place], [address] ALK PHOS 60 U/L Normal 40-129 [facility] Comment on above: Performed By: #### L 506.1001, L501.9520, L501.9910, L500.4050, L100.0100 #### [facility] [address] [place], [address] ALT [Catalytic activity/Vol] 23 U/L Normal <=46 [facility] Comment on above: Performed By: #### L 506.1001, L501.9520, L501.9910, L500.4050, L100.0100 #### [facility] [address] [place], [address] AST [Catalytic activity/Vol] 28 U/L Normal <=37 [facility] Comment on above: Performed By: #### L 506.1001, L501.9520, L501.9910, L500.4050, L100.0100 #### [facility] [address] [place], [address] Bilirubin [Mass/Vol] 0.38 mg/dL Normal 0.00-1.30 [facility] Comment on above: Performed By: #### L 506.1001, L501.9520, L501.9910, L500.4050, L100.0100 #### [facility] [address] [place], [address] BUN/CRE 19.9 RATIO Normal 10-20 [facility] Comment on above: Performed By: #### L 506.1001, L501.9520, L501.9910, L500.4050, L100.0100 #### [facility] [address] [place], [address] Calcium [Mass/Vol] 8.8 mg/dL Normal 7.6-11.0 [facility] Comment on above: Performed By: #### L 506.1001, L501.9520, L501.9910, L500.4050, L100.0100 #### [facility] [address] [place], [address] Chloride [Moles/Vol] 108 mmol/L Normal 98-108 [facility] Comment on above: Performed By: #### L 506.1001, L501.9520, L501.9910, L500.4050, L100.0100 #### [facility] [address] [place], [address] CO2 [Moles/Vol] 22.0 mmol/L Normal 21.0-32.0 [facility] Comment on above: Performed By: #### L 506.1001, L501.9520, L501.9910, L500.4050, L100.0100 #### [facility] [address] [place], [address] Creatinine [Mass/Vol] 0.99 mg/dL Normal 0.70-1.20 [facility] Comment on above: Performed By: #### L 506.1001, L501.9520, L501.9910, L500.4050, L100.0100 #### [facility] [address] [place], [address] GAP 9 Normal 5-15 [facility] Comment on above: Performed By: #### L 506.1001, L501.9520, L501.9910, L500.4050, L100.0100 #### [facility] [address] [place], [address] GFR/1.73 sq M.predicted among non-blacks MDRD (S/P/Bld) [Vol rate/Area] 84 mL/min/{1.73_m2} Normal >60 [facility] Comment on above: Result Comment: mL/m in/1.73m2 CKD-EPI Creatinine Equation (2020) Performed By: #### L 506.1001, L501.9520, L501.9910, L500.4050, L100.0100 #### [facility] [address] [place], [address] Globulin (S) [Mass/Vol] 2.3 g/dL Normal 2.2-4.2 [facility] Comment on above: Performed By: #### L 506.1001, L501.9520, L501.9910, L500.4050, L100.0100 #### [facility] [address] [place], [address] Glucose [Mass/Vol] 109 mg/dL High 70-99 [facility] Comment on above: Performed By: #### L 506.1001, L501.9520, L501.9910, L500.4050, L100.0100 #### [facility] [address] [place], [address] Potassium [Moles/Vol] 4.3 mmol/L Normal 3.3-5.1 [facility] Comment on above: Performed By: #### L 506.1001, L501.9520, L501.9910, L500.4050, L100.0100 #### [facility] [address] [place], [address] Sodium [Moles/Vol] 139 mmol/L Normal 133-145 [facility] Comment on above: Performed By: #### L 506.1001, L501.9520, L501.9910, L500.4050, L100.0100 #### [facility] [address] [place], [address] T PROT 6.6 g/dL Normal 5.9-8.4 [facility] Comment on above: Performed By: #### L 506.1001, L501.9520, L501.9910, L500.4050, L100.0100 #### [facility] Laboratory [address] [place], [address] Urea nitrogen [Mass/Vol] 20 mg/dL High 4-19 [facility] Comment on above: Performed By: #### L 506.1001, L501.9520, L501.9910, L500.4050, L100.0100 #### [facility] Laboratory [address] [place], [address] LDHon 06-03-2025 LDH 177 U/L Normal 87-241 [facility] Comment on above: Order Comment: 1 Performed By: #### L 506.1001, L501.9520, L501.9910, L500.4050, L100.0100 #### [facility] [address] [place], [address] PSA,Total- Diagnosticon 07-0 PSA, DIAGNOSTIC < 0.02 Normal 0.00-4.00 [facility] Comment on above: Result Comment: This test was performed using the [employer] tPSA method. Measured values of a patient??sample can vary depending on the testing procedure used. PSA values determined on patient samples by different testing procedures cannot be used interchangeably. If there is a change in PSA assays while monitoring therapy, sequential testing should be performed to confirm baseline values. Performed By: #### L 506.1001, L501.9520, L501.9910, L500.4050, L100.0100 #### [facility] [address] [place], [address] Basic Metabolic Profile (BMP )on 05-06-2025 BUN/CRE 19.7 RATIO Normal 10-20 [facility] Comment on above: Performed By: #### L 500.2500, L503.7505, L100.0100 #### [facility] [address] [place], [address] Calcium [Mass/Vol] 9.1 mg/dL Normal 7.6-11.0 [facility] Comment on above: Performed By: #### L 500.2500, L503.7505, L100.0100 #### [facility] [address] [place], [address] Chloride [Moles/Vol] 107 mmol/L Normal 98-108 [facility] Comment on above: Performed By: #### L 500.2500, L503.7505, L100.0100 #### [facility] [address] [place], [address] CO2 [Moles/Vol] 19.9 mmol/L Low 21.0-32.0 [facility] Comment on above: Performed By: #### L 500.2500, L503.7505, L100.0100 #### [facility] [address] [place], [address] Creatinine [Mass/Vol] 0.99 mg/dL Normal 0.70-1.20 [facility] Comment on above: Performed By: #### L 500.2500, L503.7505, L100.0100 #### [facility] [address] [place], [address] GAP 12 Normal 5-15 [facility] Comment on above: Performed By: #### L 500.2500, L503.7505, L100.0100 #### [facility] [address] [place], [address] GFR/1.73 sq M.predicted among non-blacks MDRD (S/P/Bld) [Vol rate/Area] 83 mL/min/{1.73_m2} Normal >60 [facility] Comment on above: Result Comment: mL/m in/1.73m2 CKD-EPI Creatinine Equation (2020) Performed By: #### L 500.2500, L503.7505, L100.0100 #### [facility] [address] [place], [address] Glucose [Mass/Vol] 79 mg/dL Normal 70-99 [facility] Comment on above: Performed By: #### L 500.2500, L503.7505, L100.0100 #### [facility] [address] [place], [address] Potassium [Moles/Vol] 4.1 mmol/L Normal 3.3-5.1 [facility] Comment on above: Result Comment: Hemo lysis present, Results??could be affected. ?? Performed By: #### L 500.2500, L503.7505, L100.0100 #### [facility] [address] [place], [address] Sodium [Moles/Vol] 139 mmol/L Normal 133-145 [facility] Comment on above: Performed By: #### L 500.2500, L503.7505, L100.0100 #### [facility] [address] [place], [address] Urea nitrogen [Mass/Vol] 20 mg/dL High 4-19 [facility] Comment on above: Performed By: #### L 500.2500, L503.7505, L100.0100 #### [facility] [address] [place], [address] CBC W/Diff, Automatedon 06-1 0-2025 Absolute Lymph 2.48 X10 3/uL Normal 0.83-4.51 [facility] Comment on above: Performed By: #### L 500.2500, L503.7505, L100.0100 #### [facility] [address] [place], [address] Absolute Neut 2.3 X10 3/uL Normal 2.0-7.7 [facility] Comment on above: Performed By: #### L 500.2500, L503.7505, L100.0100 #### [facility] [address] [place], [address] Basophils/100 WBC (Bld) 1.1 % High 0-1 [facility] Comment on above: Performed By: #### L 500.2500, L503.7505, L100.0100 #### [facility] [address] [place], [address] Eosinophils/100 WBC (Bld) 3.6 % Normal 0-5 [facility] Comment on above: Performed By: #### L 500.2500, L503.7505, L100.0100 #### [facility] [address] [place], [address] Erythrocyte distribution width (RBC) [Ratio] 12.8 % Normal 11.6-14.6 [facility] Comment on above: Performed By: #### L 500.2500, L503.7505, L100.0100 #### [facility] [address] [place], [address] Hematocrit (Bld) [Volume fraction] 44.5 % Normal 40-54 [facility] Comment on above: Performed By: #### L 500.2500, L503.7505, L100.0100 #### [facility] [address] [place], [address] Hemoglobin (Bld) [Mass/Vol] 15.1 g/dL Normal 13.0-16.5 [facility] Comment on above: Performed By: #### L 500.2500, L503.7505, L100.0100 #### [facility] [address] [place], [address] IG% 0.200 Normal 0.0-0.9 [facility] Comment on above: Result Comment: IG% - Immature Granulocytes (promyelocytes, myelocytes and metamyelocytes) > 1% indicates that a LEFT SHIFT is Present. Performed By: #### L 500.2500, L503.7505, L100.0100 #### [facility] [address] [place], [address] Lymphocytes/100 WBC (Bld) 44.6 % High 19-41 [facility] Comment on above: Performed By: #### L 500.2500, L503.7505, L100.0100 #### [facility] [address] [place], [address] MCH (RBC) [Entitic mass] 29.7 pg Normal 27.0-32.0 [facility] Comment on above: Performed By: #### L 500.2500, L503.7505, L100.0100 #### [facility] [address] [place], [address] MCHC (RBC) [Mass/Vol] 33.9 g/dL Normal 32-36 [facility] Comment on above: Performed By: #### L 500.2500, L503.7505, L100.0100 #### [facility] [address] [place], [address] MCV (RBC) [Entitic vol] 87.4 fL Normal 80-94 [facility] Comment on above: Performed By: #### L 500.2500, L503.7505, L100.0100 #### [facility] [address] [place], [address] Monocytes/100 WBC (Bld) 9.5 % Normal 0-10 [facility] Comment on above: Performed By: #### L 500.2500, L503.7505, L100.0100 #### [facility] [address] [place], [address] Neutrophils/100 WBC (Bld) 41.0 % Low 47-70 [facility] Comment on above: Performed By: #### L 500.2500, L503.7505, L100.0100 #### [facility] [address] [place], [address] Nucleated RBC (Bld) [#/Vol] 0 10*3/uL Normal 0-5 [facility] Comment on above: Performed By: #### L 500.2500, L503.7505, L100.0100 #### [facility] [address] [place], [address] Platelet mean volume (Bld) [Entitic vol] 10.1 fL Normal 6.2-12.0 [facility] Comment on above: Performed By: #### L 500.2500, L503.7505, L100.0100 #### [facility] [address] [place], [address] Platelets (Bld) [#/Vol] 217 10*3/uL Normal 150-450 [facility] Comment on above: Performed By: #### L 500.2500, L503.7505, L100.0100 #### [facility] [address] [place], [address] RBC (Bld) [#/Vol] 5.09 10*6/uL Normal 4.6-6.2 [facility] Comment on above: Performed By: #### L 500.2500, L503.7505, L100.0100 #### [facility] [address] [place], [address] RDW SD 41.3 fl Normal 35.1-43.9 [facility] Comment on above: Performed By: #### L 500.2500, L503.7505, L100.0100 #### [facility] [address] [place], [address] WBC (Bld) [#/Vol] 5.6 10*3/uL Normal 4.4-11.0 [facility] Comment on above: Performed By: #### L 500.2500, L503.7505, L100.0100 #### [facility] [address] [place], [address] Chest PA and Lateralon 05-06 Chest PA and Lateral [facility] Imaging Services [address] [place] [address] Chest PA and Lateral MR#: [id number] Acct: [id number] Name: TANNER PORTER Rep #: [id number] : 1955 M 69 From: Viktor brice MD PCP: Dr. Edwin Donald MD Status: REG CLI Study: Chest PA and Lateral Date of Exam: 05/06/25 Exam# [id number] Ordering Dr: Edwin Donald MD PROCEDURE: CHEST PA AND LATERAL 05/06/2025 REASON FOR EXAM: CHEST PAIN TECHNIQUE: Frontal and lateral views of the chest. COMPARISON: Radiographs on 04/20/2025. FINDINGS: Interval appearance of mild bilateral basilar atelectatic pulmonary changes. There is no demonstrated pleural abnormality. Enlarged cardiac silhouette. Normal mediastinum and kristin. Normal visualized pulmonary arteries. Atheromatous plaques of the visualized aortic arch and descending thoracic aorta. Diffuse spondylosis of the visualized thoracic spine. Normal visualized ribs, clavicles. Degenerative joint disease. There is no demonstrated abnormality of the visualized soft tissue structures of the upper abdomen. RAD/Chest PA and Lateral IMPRESSION: Interval appearance of mild bilateral basilar atelectatic pulmonary changes. Reading Location: [place] [address] CC: Dr. Edwin Donald MD Accounting Software Specialist: Signed Normal [facility] L503.7505on 05-06-2025 Natriuretic peptide B (Bld) [Mass/Vol] 124 pg/mL Normal <=900 [facility] Comment on above: Result Comment: Hear t Failure Unlikely: < 300 pg/mL Heart Failure Likely < 50 Years: > 450 pg/mL 50-75 Years: > 900 pg/mL >75 Years: > 1800 pg/mL Performed By: #### L 500.2500, L503.7505, L100.0100 #### [facility] [address] [facility] [place], [address] 12 Lead EKGon 04-20-2025 12 Lead EKG [facility] Cardiovascular Services [address] [place] [address] 12 Lead EKG 04/20/25 1426 MR#: [id number] Acct: [id number] Name: TANNER PORTER Rep #: [id number] : 1955 69 From: Nick Cooper MD Attending Dr: Dr. Santos Montoya DO Status: DEP ER Ordering Dr: Santos Montoya DO Date: 04/20/25 Location: ED Sex: M C Admitted: Test Reason : Blood Pressure : */* mmHG Vent. Rate : 73 BPM Atrial Rate : 73 BPM P-R Int : 194 ms QRS Dur : 82 ms QT Int : 376 ms P-R-T Axes : 60 37 53 degrees QTcB Int : 414 ms Normal sinus rhythm Normal ECG Confirmed by Nick Cooper ([id number]), fan mail editor ORION SINCLAIR ([id number]) on 04/28/2025 1:05:47 PM Referred By: Confirmed By: Nick Cooper 04/28/25 1305 Date Nick Cooper MD CC: Dr. Edwin Donald MD; Dr. Santos Montoya DO Signed Normal [facility] Absolute lymphocyte countOrd ered By: ED PROVIDER on 04-20-2025 Lymphocytes Auto (Unsp spec) [#/Vol] 3.16 10*3/uL 0.83-4.51 [facility] Absolute neutrophil countOrd ered By: ED PROVIDER on 04-20-2025 Neutrophils (Bld) [#/Vol] 2.4 10*3/uL 2.0-7.7 [facility] Anion gap in Serum or Plasma Ordered By: Santos Montoya on 04-20-2025 Anion gap [Moles/Vol] 12 mmol/L 5-15 [facility] Automated lymphocyte count a s percentage of total leukocytesOrdered By: ED PROVIDER on 04-20-2025 Lymphocytes/100 WBC Auto (Unsp spec) 50.3 % High 19-41 [facility] BUN/creatinine ratioOrdered By: Santos Montoya on 04-20-2025 Urea nitrogen/Creatinine [Mass ratio] 14.6 mg/mg 10-20 [facility] Basic Metabolic Profile (BMP )on 04-20-2025 BUN/CRE 14.6 RATIO Normal 10-20 [facility] Comment on above: Performed By: #### L 506.1001, L501.9520, L501.9910, L500.4050, L100.0100 #### [facility] Laboratory [address] [place], [address] Calcium [Mass/Vol] 9.1 mg/dL Normal 7.6-11.0 [facility] Comment on above: Performed By: #### L 506.1001, L501.9520, L501.9910, L500.4050, L100.0100 #### [facility] [address] [place], [address] Chloride [Moles/Vol] 105 mmol/L Normal 98-108 [facility] Comment on above: Performed By: #### L 506.1001, L501.9520, L501.9910, L500.4050, L100.0100 #### [facility] Laboratory [address] [place], [address] CO2 [Moles/Vol] 21.4 mmol/L Normal 21.0-32.0 [facility] Comment on above: Performed By: #### L 506.1001, L501.9520, L501.9910, L500.4050, L100.0100 #### [facility] Laboratory [address] [place], [address] Creatinine [Mass/Vol] 0.99 mg/dL Normal 0.70-1.20 [facility] Comment on above: Performed By: #### L 506.1001, L501.9520, L501.9910, L500.4050, L100.0100 #### [facility] [address] [place], [address] ECRCL 94.34 ml/min Normal 50-250 [facility] Comment on above: Performed By: #### L 506.1001, L501.9520, L501.9910, L500.4050, L100.0100 #### [facility] Laboratory [address] [place], [address] GAP 12 Normal 5-15 [facility] Comment on above: Performed By: #### L 506.1001, L501.9520, L501.9910, L500.4050, L100.0100 #### [facility] [address] [place], [address] GFR/1.73 sq M.predicted among non-blacks MDRD (S/P/Bld) [Vol rate/Area] 84 mL/min/{1.73_m2} Normal >60 [facility] Comment on above: Result Comment: mL/m in/1.73m2 CKD-EPI Creatinine Equation (2020) Performed By: #### L 506.1001, L501.9520, L501.9910, L500.4050, L100.0100 #### [facility] Laboratory [address] [place], [address] Glucose [Mass/Vol] 118 mg/dL High 70-99 [facility] Comment on above: Performed By: #### L 506.1001, L501.9520, L501.9910, L500.4050, L100.0100 #### [facility] [address] [place], [address] Potassium [Moles/Vol] 3.7 mmol/L Normal 3.3-5.1 [facility] Comment on above: Performed By: #### L 506.1001, L501.9520, L501.9910, L500.4050, L100.0100 #### [facility] [address] [place], [address] Sodium [Moles/Vol] 139 mmol/L Normal 133-145 [facility] Comment on above: Performed By: #### L 506.1001, L501.9520, L501.9910, L500.4050, L100.0100 #### [facility] Laboratory [address] [place], [address] Urea nitrogen [Mass/Vol] 14 mg/dL Normal 4-19 [facility] Comment on above: Performed By: #### L 506.1001, L501.9520, L501.9910, L500.4050, L100.0100 #### [facility] Laboratory [address] [place], [address] Basophil percentageOrdered B y: ED PROVIDER on 04-20-2025 Basophils/100 WBC (Bld) 1.0 % 0-1 [facility] Brain/Head without Contrasto n 04-20-2025 Brain/Head without Contrast [facility] Imaging Services [address] [address] Brain/Head without Contrast MR#: [id number] Acct: [id number] Name: TANNER PORTER Rep #: [id number] : 1955 M 69 From: Jason Chatman PCP: Dr. Edwin Donald MD Status: PRE ER Study: Brain/Head without Contrast Date of Exam: 03/28 04/20 Exam# [id number] Ordering Dr: Jami Soler DO PROCEDURE: BRAIN/HEAD WITHOUT CONTRAST 04/20/2025 REASON FOR EXAM: PREVIOUS BLEED TECHNIQUE: Head CT without intravenous contrast. Coronal and Sagittal reconstruction series were provided. One or more dose reduction techniques were used (e.g., Automated exposure control, adjustment of the mA and/or kV according to patient size, use of iterative reconstruction technique. RADIATION DOSE SUMMARY: DLP: 864 mGycm COMPARISON: CT head from 02/17/2025 and from 12/17/2024 FINDINGS: There is no acute infarct, intracranial hemorrhage, or mass effect. There is no hydrocephalus or significant midline shift. No acute, depressed calvarial fractures. No large scalp hematomas. Chronic left nasal bridge deformity. CT/Brain/Head without Contrast IMPRESSION: No acute intracranial hemorrhage. No acute intracranial process. Reading Location: [id number] CC: Dr. Jami Soler DO; Dr. Edwin Donald MD Accounting Software Specialist: Signed Normal [facility] CBC W/Diff, Automatedon 03-28 Absolute Lymph 3.16 X10 3/uL Normal 0.83-4.51 [facility] Comment on above: Performed By: #### L 506.1001, L501.9520, L501.9910, L500.4050, L100.0100 #### [facility] Laboratory [address] [place], [address] Absolute Neut 2.4 X10 3/uL Normal 2.0-7.7 [facility] Comment on above: Performed By: #### L 506.1001, L501.9520, L501.9910, L500.4050, L100.0100 #### [facility] Laboratory [address] [place], [address] Basophils/100 WBC (Bld) 1.0 % Normal 0-1 [facility] Comment on above: Performed By: #### L 506.1001, L501.9520, L501.9910, L500.4050, L100.0100 #### [facility] [address] [place], [address] Eosinophils/100 WBC (Bld) 2.7 % Normal 0-5 [facility] Comment on above: Performed By: #### L 506.1001, L501.9520, L501.9910, L500.4050, L100.0100 #### [facility] Laboratory [address] [place], [address] Erythrocyte distribution width (RBC) [Ratio] 12.8 % Normal 11.6-14.6 [facility] Comment on above: Performed By: #### L 506.1001, L501.9520, L501.9910, L500.4050, L100.0100 #### [facility] [address] [place], [address] Hematocrit (Bld) [Volume fraction] 44.2 % Normal 40-54 [facility] Comment on above: Performed By: #### L 506.1001, L501.9520, L501.9910, L500.4050, L100.0100 #### [facility] [address] [place], [address] Hemoglobin (Bld) [Mass/Vol] 14.8 g/dL Normal 13.0-16.5 [facility] Comment on above: Performed By: #### L 506.1001, L501.9520, L501.9910, L500.4050, L100.0100 #### [facility] [address] [place], [address] IG% 0.300 Normal 0.0-0.9 [facility] Comment on above: Result Comment: IG% - Immature Granulocytes (promyelocytes, myelocytes and metamyelocytes) > 1% indicates that a LEFT SHIFT is Present. Performed By: #### L 506.1001, L501.9520, L501.9910, L500.4050, L100.0100 #### [facility] [address] [place], [address] Lymphocytes/100 WBC (Bld) 50.3 % High 19-41 [facility] Comment on above: Performed By: #### L 506.1001, L501.9520, L501.9910, L500.4050, L100.0100 #### [facility] [address] [place], [address] MCH (RBC) [Entitic mass] 29.7 pg Normal 27.0-32.0 [facility] Comment on above: Performed By: #### L 506.1001, L501.9520, L501.9910, L500.4050, L100.0100 #### [facility] [address] [place], [address] MCHC (RBC) [Mass/Vol] 33.5 g/dL Normal 32-36 [facility] Comment on above: Performed By: #### L 506.1001, L501.9520, L501.9910, L500.4050, L100.0100 #### [facility] [address] [place], [address] MCV (RBC) [Entitic vol] 88.8 fL Normal 80-94 [facility] Comment on above: Performed By: #### L 506.1001, L501.9520, L501.9910, L500.4050, L100.0100 #### [facility] [address] [place], [address] Monocytes/100 WBC (Bld) 7.6 % Normal 0-10 [facility] Comment on above: Performed By: #### L 506.1001, L501.9520, L501.9910, L500.4050, L100.0100 #### [facility] [address] [place], [address] Neutrophils/100 WBC (Bld) 38.1 % Low 47-70 [facility] Comment on above: Performed By: #### L 506.1001, L501.9520, L501.9910, L500.4050, L100.0100 #### [facility] Laboratory [address] [place], [address] Nucleated RBC (Bld) [#/Vol] 0 10*3/uL Normal 0-5 [facility] Comment on above: Performed By: #### L 506.1001, L501.9520, L501.9910, L500.4050, L100.0100 #### [facility] [address] [place], [address] Platelet mean volume (Bld) [Entitic vol] 10.2 fL Normal 6.2-12.0 [facility] Comment on above: Performed By: #### L 506.1001, L501.9520, L501.9910, L500.4050, L100.0100 #### [facility] [address] [place], [address] Platelets (Bld) [#/Vol] 228 10*3/uL Normal 150-450 [facility] Comment on above: Performed By: #### L 506.1001, L501.9520, L501.9910, L500.4050, L100.0100 #### [facility] [address] [place], [address] RBC (Bld) [#/Vol] 4.98 10*6/uL Normal 4.6-6.2 [facility] Comment on above: Performed By: #### L 506.1001, L501.9520, L501.9910, L500.4050, L100.0100 #### [facility] [address] [place], [address] RDW SD 41.6 fl Normal 35.1-43.9 [facility] Comment on above: Performed By: #### L 506.1001, L501.9520, L501.9910, L500.4050, L100.0100 #### [facility] [address] [place], [address] WBC (Bld) [#/Vol] 6.3 10*3/uL Normal 4.4-11.0 [facility] Comment on above: Performed By: #### L 506.1001, L501.9520, L501.9910, L500.4050, L100.0100 #### [facility] [address] [place], [address] Carbon dioxide, total [Moles /volume] in Central venous bloodOrdered By: Santos Montoya on 04-20-2025 CO2 [Moles/Vol] 21.4 mmol/L 21.0-32.0 [facility] Chest PA and Lateralon 04-20 Chest PA and Lateral [facility] Imaging Services [address] [place] [address] Chest PA and Lateral MR#: [id number] Acct: [id number] Name: TANNER PORTER Rep #: [id number] : 1955 M 69 From: Jason Chatman PCP: Dr. Edwin Donald MD Status: PRE ER Study: Chest PA and Lateral Date of Exam: 04/20/25 Exam# [id number] Ordering Dr: Santos Montoya DO PROCEDURE: CHEST PA AND LATERAL 04/20/2025 REASON FOR EXAM: CHEST PAIN TECHNIQUE: Frontal and lateral views of the chest. COMPARISON: 02/17/2025 FINDINGS: No focal consolidation. No pleural effusion or pneumothorax. Cardiac silhouette is unremarkable. No acute fractures. RAD/Chest PA and Lateral IMPRESSION: No focal consolidations. Reading Location: [facility] CC: Dr. Edwin Donald MD; Dr. Santos Montoya DO Accounting Software Specialist: Signed Normal [facility] Chloride assayOrdered By: Frank Montoya on 04-20-2025 Chloride [Moles/Vol] 105 mmol/L 98-108 [facility] Emergency Department Summary on 04-20-2025 Emergency Department Summary [facility] Medical Records Department [address] [place] [address] Emergency Department Summary 04/20/25 MR#: [id number] Acct: [id number] Name: TANNER PORTER Rep #: [id number] : 1955 69 From: Santos Jackson PCP: Dr. Edwin Donald MD Status:DEP ER Location: ED HPI History of Present Illness Chief Complaint: Chest Pain Informant: patient and spouse/S.O. Narrative Narrative: Presents with spouse for evaluation waxing waning nontraumatic headache for the last couple days. He reports this past November traumatic head bleed was up at [facility] overnight cleared. Not any blood thinners. He has been using Tylenol with transient relief. Feels nauseated throughout. No vomiting no diarrhea. No cough. On his way in here he notes some chest discomfort attributing it to anxiety. Denies dysuria or frequency. He does report photophobia. He states this feels different than his traumatic head bleed with headaches. He had headaches for 2 months that resolved after his head injury. Prior similar symptoms: No PFSH PFSH Medical History Anxiety Former smoker Pulmonary embolism Migraines Excessive daytime sleepiness Peripheral neuropathy Generalized weakness Degenerative cervical disc Hyperglycemia Hypophosphatemia Hypokalemia Vitamin D deficiency Myalgia Urinary frequency Vertigo Pulmonary embolism Hyperlipidemia Anxiety Prostate cancer Colon cancer HTN (hypertension) Home Medications ???Medication ???Instructions ???Recorded ???Last Taken ???Type pravastatin 40 mg tablet 40 mg PO QHS 01/16/18 02/17/25 His tory polyethylene glycol 3350 17 17 g PO DAILY 03/29/19 Unknown His tory gram/dose oral powder multivitamin 1 tab PO DAILY 04/02/19 02/17/25 H istory gabapentin 300 mg capsule 300 mg PO BIDCM PRN numbness and 0 04/22/20 02/16/25 History tingling levothyroxine 25 mcg tablet 25 mcg PO DAILY 04/07/24 02/16/25 History buprenorphine 8 mg-naloxone 2 mg 0.25 tab sublingual TID 12/17/24 0 02/17/25 History sublingual tablet naproxen 500 mg tablet 500 mg PO BID PRN pain 12/17/24 Un known History clonidine HCl 0.1 mg tablet 0.1 mg PO Q8H PRN hypertensive 3 02/17/25 Unknown Rx days #9 tabs losartan 50 mg tablet 50 mg PO BID 02/17/25 02/17/25 His tory ondansetron HCl 4 mg tablet 4 mg PO Q6H PRN PRN nausea 5 Unknown History clonidine HCl 0.1 mg tablet 0.1 mg PO BID 14 days #28 tabs 02/18 Unknown Rx metoprolol succinate 25 mg 25 mg PO QHS 02/27/25 Unknown Hist ory tablet,extended release 24 hr ondansetron 4 mg disintegrating 4 mg PO Q8H PRN PRN Nausea #10 tab s 04/20/25 Unknown Rx tablet Allergy/AdvReac Type Severity Reaction Status Date / Time amlodipine Allergy Unknown Unknown Verified 04/20/25 14:22 Family History Brother Heart disease Myocardial infarction Surgical History s/p port placement History of colon resection Social History household members: significant other housing: house Smoking Status: Former smoker alcohol intake: never ROS ROS ED Constitutional Constitutional ED: Denies chills, fever(s) or sweats ENT ENT ED: Denies sore throat Cardiovascular Cardiovascular: Reports chest pain; Denies leg edema, palpitations or racing heartbeat Respiratory/Chest Respiratory/Chest: Denies cough, dyspnea or dyspnea on exertion Gastrointestinal Gastrointestinal: Reports nausea; Denies abdominal pain, diarrhea or vomiting Genitourinary Genitourinary ED: Denies dysuria, hematuria or urinary frequency Musculoskeletal Musculoskeletal: Denies back pain, extremity pain or neck pain Integumentary Denies rash or wounds Neurologic Neurologic: Reports headache(s); Denies paresthesias or weakness EXAM Physical Exam Const Vital Signs: 04/20/25 14:22 04/20/25 14:32 04/20/25 14:34 Temperature 97 F L Temperature Source Temporal Pulse Rate 80 64 Respiratory Rate 14 14 Blood Pressure 188/77 H 168/78 H Blood Pressure Mean 114 108 Pulse Ox 98 97 97 Oxygen Delivery Method Room Air Room Air Room Air 04/20/25 15:22 04/20/25 16:46 04/20/25 17:46 Temperature 97.2 F L Temperature Source Pulse Rate 57 L 46 L 50 L Respiratory Rate 12 12 18 Blood Pressure 130/62 H 144/73 H 157/93 H Blood Pressure Mean 84 96 114 Pulse Ox 96 96 96 Oxygen Delivery Method Room Air Room Air Positive well nourished and well developed General Appearance ED: well developed and NAD HEENT Reports moist mucous membranes normocephalic and atraumatic Eyes General Eye ED: Yes normal appearance of both eyes Neck fu (more content not included)... Normal [facility] Eosinophil percentageOrdered By: ED PROVIDER on 04-20-2025 Eosinophils/100 WBC (Bld) 2.7 % 0-5 [facility] Erythrocyte distribution wid th ratioOrdered By: ED PROVIDER on 04-20-2025 Erythrocyte distribution width (RBC) [Ratio] 12.8 % 11.6-14.6 [facility] Erythrocyte distribution wid th standard deviationOrdered By: ED PROVIDER on 04-20-2025 Erythrocyte distribution width (RBC) [Ratio] 41.6 fl 35.1-43.9 [facility] Glomerular filtration rate ( GFR) estimation/1.73 sq m using serum, plasma, or whole bOrdered By: Santos Montoya on 04-20-2025 GFR/1.73 sq M.predicted among non-blacks MDRD (S/P/Bld) [Vol rate/Area] 84 mL/min/{1.73_m2} >60 [facility] Comment on above: mL/min/1.73m2 CKD-EP I Creatinine Equation (2020) Hematocrit Auto (Bld) [Volum e fraction]Ordered By: ED PROVIDER on 04-20-2025 Hematocrit (Bld) [Volume fraction] 44.2 % 40-54 [facility] Hemoglobin measurementOrdere d By: ED PROVIDER on 04-20-2025 Hemoglobin (Bld) [Mass/Vol] 14.8 g/dL 13.0-16.5 [facility] Immature granulocytes/100 WB C Auto (Bld)Ordered By: ED PROVIDER on 04-20-2025 Immature granulocytes/100 WBC (Bld) 0.300 % 0.0-0.9 [facility] Comment on above: IG% - Immature Granu locytes (promyelocytes, myelocytes and metamyelocytes) > 1% indicates that a LEFT SHIFT is Present. L499.0042on 04-20-2025 Trop T High Sen 8 ng/L Normal <=22 [facility] Comment on above: Performed By: #### L 506.1001, L501.9520, L501.9910, L500.4050, L100.0100 #### [facility] [place], [address] L499.0043on 04-20-2025 Trop T High Sen Normal <=22 [facility] Comment on above: Result Comment: Canc elled via OM: Order cancelled - Patient discharged Performed By: #### L 506.1001, L501.9520, L501.9910, L500.4050, L100.0100 #### [facility] [address] [place], [address] L501.4021on 04-20-2025 Trop T High Sen 7 ng/L Normal <=22 [facility] Comment on above: Performed By: #### L 506.1001, L501.9520, L501.9910, L500.4050, L100.0100 #### [facility] [address] [place], [place], [id number] MCV (mean corpuscular volume ) determinationOrdered By: ED PROVIDER on 04-20-2025 MCV (RBC) [Entitic vol] 88.8 fL 80-94 [facility] Mean corpuscular hemoglobin (MCH) determinationOrdered By: ED PROVIDER on 04-20-2025 MCH (RBC) [Entitic mass] 29.7 pg 27.0-32.0 [facility] Mean corpuscular hemoglobin concentration (MCHC) determinationOrdered By: ED PROVIDER on 04-20-2025 MCHC (RBC) [Mass/Vol] 33.5 g/dL 32-36 [facility] Mean platelet volume determi nationOrdered By: ED PROVIDER on 04-20-2025 Platelet mean volume (Bld) [Entitic vol] 10.2 fL 6.2-12.0 [facility] Monocyte percentageOrdered B y: ED PROVIDER on 04-20-2025 Monocytes/100 WBC (Bld) 7.6 % 0-10 [facility] Neutrophil percentageOrdered By: ED PROVIDER on 04-20-2025 Neutrophils/100 WBC (Bld) 38.1 % Low 47-70 [facility] Nucleated red blood cell per centageOrdered By: ED PROVIDER on 04-20-2025 Nucleated RBC/100 WBC (Bld) [Ratio] 0 % 0-5 [facility] Platelet countOrdered By: ED PROVIDER on 04-20-2025 Platelets (Bld) [#/Vol] 228 10*3/uL 150-450 [facility] Potassium measurement (mass/ volume)Ordered By: Santos Montoya on 04-20-2025 Potassium (Unsp spec) [Mass/Vol] 3.7 mmol/L 3.3-5.1 [facility] RBC Auto (Bld) [#/Vol]Ordere d By: ED PROVIDER on 04-20-2025 RBC (Bld) [#/Vol] 4.98 10*6/uL 4.6-6.2 [facility] Serum creatinine measurement (mass/volume)Ordered By: Santos Montoya on 04-20-2025 Creatinine [Mass/Vol] 0.99 mg/dL 0.70-1.20 [facility] Serum glucose measurement (m ass/volume)Ordered By: Santos Montoya on 04-20-2025 Glucose [Mass/Vol] 118 mg/dL High 70-99 [facility] Serum or plasma calcium jayne urement (mass/volume)Ordered By: Santos Montoya on 04-20-2025 Calcium [Mass/Vol] 9.1 mg/dL 7.6-11.0 [facility] Serum or plasma urea nitroge n measurement (mass/volume)Ordered By: Santos Montoya on 04-20-2025 Urea nitrogen [Mass/Vol] 14 mg/dL 4-19 [facility] Sodium levelOrdered By: Santos Montoya on 04-20-2025 Sodium [Moles/Vol] 139 mmol/L 133-145 [facility] Troponin T.cardiac [Mass/vol ume] in Serum or Plasma by High sensitivity methodOrdered By: Santos Montoya on 04-20-2025 Troponin T.cardiac High sensitivity method [Mass/Vol] 8 ng/L <22 [facility] Troponin T.cardiac High sensitivity method [Mass/Vol] 7 ng/L <22 [facility] White blood cell (WBC) count Ordered By: ED PROVIDER on 04-20-2025 WBC (Bld) [#/Vol] 6.3 10*3/uL 4.4-11.0 [facility] 12 Lead EKGon 02-27-2025 12 Lead EKG [facility] [address] [place] [address] 12 Lead EKG 02/27/25 0425 MR#: [id number] Acct: [id number] Name: TANNER PORTER Rep #: [id number] : 1955 69 From: Avery Rogers MD Attending Dr: Status: DEP ER Ordering Dr: Jaison Márquez DO Date: 02/27/25 Location: ED Sex: M C Admitted: Test Reason : HTN Blood Pressure : */* mmHG Vent. Rate : 54 BPM Atrial Rate : 54 BPM P-R Int : 206 ms QRS Dur : 88 ms QT Int : 430 ms P-R-T Axes : 43 43 55 degrees QTcB Int : 407 ms Sinus bradycardia Otherwise normal ECG Confirmed by NABOR JARA, AVERY ([id number]), fan mail editor ORION SINCLAIR ([id number]) on 02/28/2025 9:22:14 AM Referred By: BESSY Confirmed By: AVERY ROGERS MD 02/28/25921 Date Avery Rogers MD CC: Dr. Edwin Donald MD; Jaison Márquez DO Signed Normal [facility] Absolute lymphocyte countOrd ered By: Jaison Márquez on 02-27-2025 Lymphocytes Auto (Unsp spec) [#/Vol] 2.47 10*3/uL 0.83-4.51 [facility] Absolute neutrophil countOrd ered By: Jaison Márquez on 02-27-2025 Neutrophils (Bld) [#/Vol] 2.2 10*3/uL 2.0-7.7 [facility] Anion gap in Serum or Plasma Ordered By: Jaison Márquez on 02-27-2025 Anion gap [Moles/Vol] 11 mmol/L 5-15 [facility] Automated lymphocyte count a s percentage of total leukocytesOrdered By: Jaison Márquez on 02-27-2025 Lymphocytes/100 WBC Auto (Unsp spec) 46.5 % High 19-41 [facility] BUN/creatinine ratioOrdered By: Jaison Márquez on 02-27-2025 Urea nitrogen/Creatinine [Mass ratio] 18.6 mg/mg - [facility] Basic Metabolic Profile (BMP )on 02-27-2025 BUN/CRE 18.6 RATIO Normal 09-15 [facility] Comment on above: Performed By: #### L 506.1001, L501.9520, L501.9910, L500.4050, L100.0100 #### [facility] [address] [place], [address] Calcium [Mass/Vol] 9.0 mg/dL Normal 7.6-11.0 [facility] Comment on above: Performed By: #### L 506.1001, L501.9520, L501.9910, L500.4050, L100.0100 #### [facility] [address] [place], [address] Chloride [Moles/Vol] 108 mmol/L Normal 98-108 [facility] Comment on above: Performed By: #### L 506.1001, L501.9520, L501.9910, L500.4050, L100.0100 #### [facility] [address] [place], [address] CO2 [Moles/Vol] 23.1 mmol/L Normal 21.0-32.0 [facility] Comment on above: Performed By: #### L 506.1001, L501.9520, L501.9910, L500.4050, L100.0100 #### [facility] [address] [place], [address] Creatinine [Mass/Vol] 1.04 mg/dL Normal 0.70-1.20 [facility] Comment on above: Performed By: #### L 506.1001, L501.9520, L501.9910, L500.4050, L100.0100 #### [facility] [address] [place], [address] ECRCL 88.90 ml/min Normal 50-250 [facility] Comment on above: Performed By: #### L 506.1001, L501.9520, L501.9910, L500.4050, L100.0100 #### [facility] [address] [place], [address] GAP 11 Normal 5-15 [facility] Comment on above: Performed By: #### L 506.1001, L501.9520, L501.9910, L500.4050, L100.0100 #### [facility] [address] [place], [address] GFR/1.73 sq M.predicted among non-blacks MDRD (S/P/Bld) [Vol rate/Area] 79 mL/min/{1.73_m2} Normal >60 [facility] Comment on above: Result Comment: mL/m in/1.73m2 CKD-EPI Creatinine Equation (2020) Performed By: #### L 506.1001, L501.9520, L501.9910, L500.4050, L100.0100 #### [facility] [address] [place], [address] Glucose [Mass/Vol] 112 mg/dL High 70-99 [facility] Comment on above: Performed By: #### L 506.1001, L501.9520, L501.9910, L500.4050, L100.0100 #### [facility] [address] [place], [address] Potassium [Moles/Vol] 4.1 mmol/L Normal 3.3-5.1 [facility] Comment on above: Performed By: #### L 506.1001, L501.9520, L501.9910, L500.4050, L100.0100 #### [facility] [address] [place], [address] Sodium [Moles/Vol] 142 mmol/L Normal 133-145 [facility] Comment on above: Performed By: #### L 506.1001, L501.9520, L501.9910, L500.4050, L100.0100 #### [facility] [address] [place], [address] Urea nitrogen [Mass/Vol] 19 mg/dL Normal 4-19 [facility] Comment on above: Performed By: #### L 506.1001, L501.9520, L501.9910, L500.4050, L100.0100 #### [facility] [address] [place], [address] Basophil percentageOrdered B y: Jaison Márquez on 02-27-2025 Basophils/100 WBC (Bld) 1.5 % High 0-1 [facility] CBC W/Diff, Automatedon Absolute Lymph 2.47 X10 3/uL Normal 0.83-4.51 [facility] Comment on above: Performed By: #### L 506.1001, L501.9520, L501.9910, L500.4050, L100.0100 #### [facility] [address] [place], [address] Absolute Neut 2.2 X10 3/uL Normal 2.0-7.7 [facility] Comment on above: Performed By: #### L 506.1001, L501.9520, L501.9910, L500.4050, L100.0100 #### [facility] [address] [place], [address] Basophils/100 WBC (Bld) 1.5 % High 0-1 [facility] Comment on above: Performed By: #### L 506.1001, L501.9520, L501.9910, L500.4050, L100.0100 #### [facility] [address] [place], [address] Eosinophils/100 WBC (Bld) 4.5 % Normal 0-5 [facility] Comment on above: Performed By: #### L 506.1001, L501.9520, L501.9910, L500.4050, L100.0100 #### [facility] [address] [place], [address] Erythrocyte distribution width (RBC) [Ratio] 12.8 % Normal 11.6-14.6 [facility] Comment on above: Performed By: #### L 506.1001, L501.9520, L501.9910, L500.4050, L100.0100 #### [facility] [address] [place], [address] Hematocrit (Bld) [Volume fraction] 41.4 % Normal 40-54 [facility] Comment on above: Performed By: #### L 506.1001, L501.9520, L501.9910, L500.4050, L100.0100 #### [facility] [address] [place], [address] Hemoglobin (Bld) [Mass/Vol] 14.2 g/dL Normal 13.0-16.5 [facility] Comment on above: Performed By: #### L 506.1001, L501.9520, L501.9910, L500.4050, L100.0100 #### [facility] [address] [place], [address] IG% 0.200 Normal 0.0-0.9 [facility] Comment on above: Result Comment: IG% - Immature Granulocytes (promyelocytes, myelocytes and metamyelocytes) > 1% indicates that a LEFT SHIFT is Present. Performed By: #### L 506.1001, L501.9520, L501.9910, L500.4050, L100.0100 #### [facility] [address] [place], [address] Lymphocytes/100 WBC (Bld) 46.5 % High 19-41 [facility] Comment on above: Performed By: #### L 506.1001, L501.9520, L501.9910, L500.4050, L100.0100 #### [facility] [address] [place], [address] MCH (RBC) [Entitic mass] 30.0 pg Normal 27.0-32.0 [facility] Comment on above: Performed By: #### L 506.1001, L501.9520, L501.9910, L500.4050, L100.0100 #### [facility] [address] [place], [address] MCHC (RBC) [Mass/Vol] 34.3 g/dL Normal 32-36 [facility] Comment on above: Performed By: #### L 506.1001, L501.9520, L501.9910, L500.4050, L100.0100 #### [facility] [address] [place], [address] MCV (RBC) [Entitic vol] 87.3 fL Normal 80-94 [facility] Comment on above: Performed By: #### L 506.1001, L501.9520, L501.9910, L500.4050, L100.0100 #### [facility] [address] [place], [address] Monocytes/100 WBC (Bld) 6.8 % Normal 0-10 [facility] Comment on above: Performed By: #### L 506.1001, L501.9520, L501.9910, L500.4050, L100.0100 #### [facility] [address] [place], [address] Neutrophils/100 WBC (Bld) 40.5 % Low 47-70 [facility] Comment on above: Performed By: #### L 506.1001, L501.9520, L501.9910, L500.4050, L100.0100 #### [facility] [address] [place], [address] Nucleated RBC (Bld) [#/Vol] 0 10*3/uL Normal 0-5 [facility] Comment on above: Performed By: #### L 506.1001, L501.9520, L501.9910, L500.4050, L100.0100 #### [facility] [address] [place], [address] Platelet mean volume (Bld) [Entitic vol] 10.2 fL Normal 6.2-12.0 [facility] Comment on above: Performed By: #### L 506.1001, L501.9520, L501.9910, L500.4050, L100.0100 #### [facility] [address] [place], [address] Platelets (Bld) [#/Vol] 197 10*3/uL Normal 150-450 [facility] Comment on above: Performed By: #### L 506.1001, L501.9520, L501.9910, L500.4050, L100.0100 #### [facility] [address] [place], [address] RBC (Bld) [#/Vol] 4.74 10*6/uL Normal 4.6-6.2 [facility] Comment on above: Performed By: #### L 506.1001, L501.9520, L501.9910, L500.4050, L100.0100 #### [facility] [address] [place], [address] RDW SD 40.6 fl Normal 35.1-43.9 [facility] Comment on above: Performed By: #### L 506.1001, L501.9520, L501.9910, L500.4050, L100.0100 #### [facility] [address] [place], [address] WBC (Bld) [#/Vol] 5.3 10*3/uL Normal 4.4-11.0 [facility] Comment on above: Performed By: #### L 506.1001, L501.9520, L501.9910, L500.4050, L100.0100 #### [facility] [address] [place], [address] Carbon dioxide, total [Moles /volume] in Central venous bloodOrdered By: Jaison Márquez on 02-27-2025 CO2 [Moles/Vol] 23.1 mmol/L 21.0-32.0 [facility] Chloride assayOrdered By: India Márquez on 02-27-2025 Chloride [Moles/Vol] 108 mmol/L 98-108 [facility] Emergency Department Summary on 02-27-2025 Emergency Department Summary [facility] Medical Records Department [address] [place] [address] Emergency Department Summary 02/27/25 MR#: [id number] Acct: [id number] Name: TANNER PORTER Rep #: [id number] : 1955 69 From: Jaison Márquez DO PCP: Dr. Edwin Donald MD Status:DEP ER Location: ED HPI History of Present Illness Chief Complaint: Hypertension Informant: patient Narrative Narrative: Patient is a 69-year-old male with past medical history of hypertension generalized anxiety disorder hyperlipidemia and hypothyroidism. He was seen roughly 1 week ago secondary to hypertension. His workup at that time was negative for signs of endorgan damage. He follow-up with his family doctor and his doctor change his medications to valsartan metoprolol and clonidine if his blood pressure is elevated above 175. Patient states he took his medications as directed. He denies any excessive stimulant use or illicit drug use. He states that he tried to go to bed but had a headache and therefore checked his blood pressure and it was elevated. He states he took one of the clonidine pills and waited 15 to 20 minutes and rechecked and his pressure was still high and secondary to this he comes in for evaluation. He denies any chest pain or shortness of breath. He denies any abdominal pain. He states that his headache has improved upon arrival to the ER [facility] Medical History Anxiety Former smoker Pulmonary embolism Migraines Excessive daytime sleepiness Peripheral neuropathy Generalized weakness Degenerative cervical disc Hyperglycemia Hypophosphatemia Hypokalemia Vitamin D deficiency Myalgia Urinary frequency Vertigo Pulmonary embolism Hyperlipidemia Anxiety Prostate cancer Colon cancer HTN (hypertension) Home Medications ???Medication ???Instructions ???Recorded ???Last Taken ???Type pravastatin 40 mg tablet 40 mg PO QHS 01/16/18 02/17/25 His tory polyethylene glycol 3350 17 17 g PO DAILY 03/29/19 Unknown His tory gram/dose oral powder multivitamin 1 tab PO DAILY 04/02/19 02/17/25 H istory gabapentin 300 mg capsule 300 mg PO BIDCM PRN numbness and 0 04/22/20 02/16/25 History tingling levothyroxine 25 mcg tablet 25 mcg PO DAILY 04/07/24 02/16/25 History buprenorphine 8 mg-naloxone 2 mg 0.25 tab sublingual TID 12/17/24 0 02/17/25 History sublingual tablet naproxen 500 mg tablet 500 mg PO BID PRN pain 12/17/24 Un known History clonidine HCl 0.1 mg tablet 0.1 mg PO Q8H PRN hypertensive 3 02/17/25 Unknown Rx days #9 tabs losartan 50 mg tablet 50 mg PO BID 02/17/25 02/17/25 His tory ondansetron HCl 4 mg tablet 4 mg PO Q6H PRN PRN nausea 5 Unknown History clonidine HCl 0.1 mg tablet 0.1 mg PO BID 14 days #28 tabs 02/18 Unknown Rx metoprolol succinate 25 mg 25 mg PO QHS 02/27/25 Unknown Hist ory tablet,extended release 24 hr Allergy/AdvReac Type Severity Reaction Status Date / Time amlodipine Allergy Unknown Unknown Verified 02/17/25 19:59 Family History Brother Heart disease Myocardial infarction Surgical History s/p port placement History of colon resection Social History household members: significant other housing: house Smoking Status: Former smoker alcohol intake: never ROS ROS ED Constitutional Constitutional ED: Denies chills or fever(s) Eyes Eyes: Denies blurry vision or change in vision ENT ENT ED: Denies sore throat Cardiovascular Cardiovascular: Denies chest pain, palpitations or racing heartbeat Respiratory/Chest Respiratory/Chest: Denies cough or dyspnea Gastrointestinal Gastrointestinal: Denies abdominal pain, diarrhea, nausea or vomiting Genitourinary Genitourinary ED: Denies dysuria Musculoskeletal Musculoskeletal: Denies myalgias Integumentary Denies rash Neurologic Neurologic: Reports headache(s) Psychiatric Psychiatric: Reports anxiety Hematologic/Lymphatic Hematologic/Lymphatic: Denies easy bleeding or easy bruising EXAM Physical Exam Const Vital Signs: 02/27/25 03:37 02/27/25 03:37 02/27/25 04:01 Temperature 97.8 F Temperature Source Oral Pulse Rate 61 54 L Respiratory Rate 18 18 Respiratory Effort Normal Respiratory Pattern Normal Blood Pressure 186/96 H Blood Pressure Mean 126 Pulse Ox 98 97 Oxygen Delivery Method Room Air Room Air 02/27/25 04:43 Temperature Temperature Source Pulse Rate 52 L Respiratory Rate 18 Respiratory Effort Respiratory Pattern Blood Pressure 138/69 H Blood Pressure Mean 92 Pulse Ox 96 Oxygen Delivery Method Room Air (more content not included)... Normal [facility] Eosinophil percentageOrdered By: Jaison Márquez on 02-27-2025 Eosinophils/100 WBC (Bld) 4.5 % 0-5 [facility] Erythrocyte distribution wid th (RBC) [Ratio]Ordered By: Jaison Márquez on 02-27-2025 Erythrocyte distribution width (RBC) [Entitic vol] 40.6 fL 35.1-43.9 [facility] Erythrocyte distribution wid th ratioOrdered By: Jaison Márquez on 02-27-2025 Erythrocyte distribution width (RBC) [Ratio] 12.8 % 11.6-14.6 [facility] Erythrocyte distribution wid th standard deviationOrdered By: Jaison Márquez on 02-27-2025 Erythrocyte distribution width (RBC) [Ratio] 40.6 fl 35.1-43.9 [facility] Estimation of creatinine tanja aranceOrdered By: Jaison Márquez on 02-27-2025 Estimated Creatinine Clearance Calc 88.90 ml/min 50-250 [facility] GFR/1.73 sq M.predicted laine g non-blacks MDRD (S/P/Bld) [Vol rate/Area]Ordered By: Jaison Márquez on 02-27-2025 Estimated GFR (MDRD) Non-Af Amer 79 >60 [facility] Comment on above: mL/min/1.73m2 CKD-EP I Creatinine Equation (2020) Glomerular filtration rate ( GFR) estimation/1.73 sq m using serum, plasma, or whole bOrdered By: Jaison Márquez on 02-27-2025 GFR/1.73 sq M.predicted among non-blacks MDRD (S/P/Bld) [Vol rate/Area] 79 mL/min/{1.73_m2} >60 [facility] Comment on above: mL/min/1.73m2 CKD-EP I Creatinine Equation (2020) Hematocrit Auto (Bld) [Volum e fraction]Ordered By: Jaison Márquez on 02-27-2025 Hematocrit (Bld) [Volume fraction] 41.4 % 40-54 [facility] Hemoglobin measurementOrdere d By: Jaison Márquez on 02-27-2025 Hemoglobin (Bld) [Mass/Vol] 14.2 g/dL 13.0-16.5 [facility] Immature granulocytes/100 WB C Auto (Bld)Ordered By: Jaison Márquez on 02-27-2025 Immature granulocytes/100 WBC (Bld) 0.200 % 0.0-0.9 [facility] Comment on above: IG% - Immature Granu locytes (promyelocytes, myelocytes and metamyelocytes) > 1% indicates that a LEFT SHIFT is Present. Lymphocytes Auto (Unsp spec) [#/Vol]Ordered By: Jaison Márquez on 02-27-2025 Lymphocytes (Bld) [#/Vol] 2.47 10*3/uL 0.83-4.51 [facility] Lymphocytes/100 WBC Auto (Un sp spec)Ordered By: Jaison Márquez on 02-27-2025 Lymphocytes/100 WBC (Bld) 46.5 % High 19-41 [facility] MCV (mean corpuscular volume ) determinationOrdered By: Jaison Márquez on 02-27-2025 MCV (RBC) [Entitic vol] 87.3 fL 80-94 [facility] Mean corpuscular hemoglobin (MCH) determinationOrdered By: Jaison Márquez on 02-27-2025 MCH (RBC) [Entitic mass] 30.0 pg 27.0-32.0 [facility] Mean corpuscular hemoglobin concentration (MCHC) determinationOrdered By: Jaison Márquez on 02-27-2025 MCHC (RBC) [Mass/Vol] 34.3 g/dL 32-36 [facility] Mean platelet volume determi nationOrdered By: Jaison Márquez on 02-27-2025 Platelet mean volume (Bld) [Entitic vol] 10.2 fL 6.2-12.0 [facility] Monocyte percentageOrdered B y: Jaison Márquez on 02-27-2025 Monocytes/100 WBC (Bld) 6.8 % 0-10 [facility] Neutrophil percentageOrdered By: Jaison Márquez on 02-27-2025 Neutrophils/100 WBC (Bld) 40.5 % Low 47-70 [facility] Nucleated red blood cell per centageOrdered By: Jaison Márquez on 02-27-2025 Nucleated RBC/100 WBC (Bld) [Ratio] 0 % 0-5 [facility] Platelet countOrdered By: India Márquez on 02-27-2025 Platelets (Bld) [#/Vol] 197 10*3/uL 150-450 [facility] Potassium (Unsp spec) [Mass/ Vol]Ordered By: Jaison Márquez on 02-27-2025 Potassium [Moles/Vol] 4.1 mmol/L 3.3-5.1 [facility] Potassium measurement (mass/ volume)Ordered By: Jaison Márquez on 02-27-2025 Potassium (Unsp spec) [Mass/Vol] 4.1 mmol/L 3.3-5.1 [facility] RBC Auto (Bld) [#/Vol]Ordere d By: Jaison Márquez on 02-27-2025 RBC (Bld) [#/Vol] 4.74 10*6/uL 4.6-6.2 [facility] Serum creatinine measurement (mass/volume)Ordered By: Jaison Márquez on 02-27-2025 Creatinine [Mass/Vol] 1.04 mg/dL 0.70-1.20 [facility] Serum glucose measurement (m ass/volume)Ordered By: Jaison Márquez on 02-27-2025 Glucose [Mass/Vol] 112 mg/dL High 70-99 [facility] Serum or plasma calcium jayne urement (mass/volume)Ordered By: Jaison Márquez on 02-27-2025 Calcium [Mass/Vol] 9.0 mg/dL 7.6-11.0 [facility] Serum or plasma urea nitroge n measurement (mass/volume)Ordered By: Jaison Márquez on 02-27-2025 Urea nitrogen [Mass/Vol] 19 mg/dL 4-19 [facility] Sodium levelOrdered By: Roman Márquez on 02-27-2025 Sodium [Moles/Vol] 142 mmol/L 133-145 [facility] White blood cell (WBC) count Ordered By: Jaison Márquez on 02-27-2025 WBC (Bld) [#/Vol] 5.3 10*3/uL 4.4-11.0 [facility] Emergency Department Summary on 02-18-2025 Emergency Department Summary [facility] Medical Records Department [address] [place] [address] Emergency Department Summary 02/18/25 MR#: [id number] Acct: [id number] Name: TANNER PORTER Rep #: [id number] : 1955 69 From: Luke Wallace MD PCP: Dr. Edwin Donald MD Status:REG ER Location: ED HPI History of Present Illness Chief Complaint: Hypertension Detail of Chief Complaint: Elevated blood pressure 180 systolic and head trauma Informant: patient Onset/Context/Timing Onset: Today (Patient was seen today. He did not mention to the doctor that he hit his head and has prior history of subdural hematoma) and Days (Head trauma a couple of days ago. Garage door struck him on the top of the head. He has had headache.) Context: Sudden Onset Timing: Continuous and Waxes and wanes Quality: Headache due to trauma Location: Vertex Current Severity: Mild Maximum Severity: Moderate Worsened by: Believes it is associated with his blood pressure readings. Relieved by: Nothing Associated Symptoms Associated Symptoms: Nothing Narrative Narrative: Patient is a 59-year-old male. He has history of hypertension, hypothyroidism and hypercholesterolemia who presents because of elevated blood pressure of systolic of 180. He states he was seen earlier today he did not mention to the doctor that saw him this morning that he hit his head and has a headache. states he has been forgetful since he hit his head. He has a history of a subdural hematoma due to a fall a couple of months ago. He denies double vision, blurred vision or loss of vision. He denies neck pain. Denies paresthesia, anesthesia or motor weakness. He denies cardiac or respiratory symptoms. He has not had minimal nausea. He said no vomiting or diarrhea. He denies being on any anticoagulant or antithrombotic. He states he has not missed any of his clonidine doses. He is also on losartan 50 mg twice daily. Prior similar symptoms: Yes (Subdural hematoma due to blunt trauma) Recent Illness/Hospitalization: Yes (Today in the emergency department) [facility] Medical History Anxiety Former smoker Pulmonary embolism Migraines Excessive daytime sleepiness Peripheral neuropathy Generalized weakness Degenerative cervical disc Hyperglycemia Hypophosphatemia Hypokalemia Vitamin D deficiency Myalgia Urinary frequency Vertigo Pulmonary embolism Hyperlipidemia Anxiety Prostate cancer Colon cancer HTN (hypertension) Home Medications ???Medication ???Instructions ???Recorded ???Last Taken ???Type pravastatin 40 mg tablet 40 mg PO QHS 01/16/18 02/17/25 His tory polyethylene glycol 3350 17 17 g PO DAILY 03/29/19 Unknown His tory gram/dose oral powder multivitamin 1 tab PO DAILY 04/02/19 02/17/25 H istory gabapentin 300 mg capsule 300 mg PO BIDCM PRN numbness and 0 04/22/20 02/16/25 History tingling levothyroxine 25 mcg tablet 25 mcg PO DAILY 04/07/24 02/16/25 History buprenorphine 8 mg-naloxone 2 mg 0.25 tab sublingual TID 12/17/24 0 02/17/25 History sublingual tablet naproxen 500 mg tablet 500 mg PO BID PRN pain 12/17/24 Un known History clonidine HCl 0.1 mg tablet 0.1 mg PO Q8H PRN hypertensive 3 02/17/25 Unknown Rx days #9 tabs losartan 50 mg tablet 50 mg PO BID 02/17/25 02/17/25 His tory ondansetron HCl 4 mg tablet 4 mg PO Q6H PRN PRN nausea 5 Unknown History Allergy/AdvReac Type Severity Reaction Status Date / Time amlodipine Allergy Unknown Unknown Verified 02/17/25 19:59 Family History Brother Heart disease Myocardial infarction Surgical History s/p port placement History of colon resection Social History household members: significant other housing: house Smoking Status: Former smoker alcohol intake: never ROS ROS ED Constitutional Constitutional ED: Denies chills, fever(s), subjective, sweats or weight loss Eyes Eyes: Denies blurry vision, change in vision or diplopia ENT ENT ED: Denies ear pain or rhinorrhea Cardiovascular Cardiovascular: Denies chest pain or palpitations Respiratory/Chest Respiratory/Chest: Denies cough, dyspnea or dyspnea on exertion Gastrointestinal Gastrointestinal: Reports nausea; Denies abdominal pain, melena or vomiting Genitourinary Genitourinary ED: Denies dysuria, hematuria or urinary frequency Musculoskeletal Musculoskeletal: Denies back pain, myalgias or neck pain Integumentary Denies rash Neurologic Neurologic: Reports headache(s); Denies paresthesias or weakness Endocrine Endocrinology: Denies cold intolerance or heat intolerance Hematologic/Lymphatic Hematologic/Lymphatic: Reports sy (more content not included)... Normal [facility] 12 Lead EKGon 02-17-2025 12 Lead EKG [facility] Cardiovascular Services [address] [place] [address] 12 Lead EKG 02/17/25 1147 MR#: [id number] Acct: [id number] Name: GERMANFILIPETANNER Minna Rep #: [id number] : 1955 69 From: Avery Rogers MD Attending Dr: Status: DEP ER Ordering Dr: Willy Esteban DO Date: 5 Location: ED Sex: M C Admitted: Test Reason : Blood Pressure : */* mmHG Vent. Rate : 64 BPM Atrial Rate : 64 BPM P-R Int : 196 ms QRS Dur : 76 ms QT Int : 390 ms P-R-T Axes : 53 24 23 degrees QTcB Int : 402 ms Normal sinus rhythm Normal ECG Confirmed by NABOR JARA, AVERY ([id number]), fan mail editor FABY PEACOCK ([id number]) on 02/19/2025 8:14:28 AM Referred By: Willy Esteban Confirmed By: AVERY ROGERS MD 02/19/2514 Date Avery Rogers MD CC: Dr. Willy Esteban DO; Dr. Edwin Donald MD Signed Normal [facility] Absolute lymphocyte countOrd ered By: Willy Esteban on 02-17-2025 Lymphocytes Auto (Unsp spec) [#/Vol] 2.40 10*3/uL 0.83-4.51 [facility] Absolute neutrophil countOrd ered By: Willy Esteban on 02-17-2025 Neutrophils (Bld) [#/Vol] 2.2 10*3/uL 2.0-7.7 [facility] Anion gap in Serum or Plasma Ordered By: Willy Esteban on 02-17-2025 Anion gap [Moles/Vol] 13 mmol/L 5-15 [facility] Automated lymphocyte count a s percentage of total leukocytesOrdered By: Willy Esteban on 02-17-2025 Lymphocytes/100 WBC Auto (Unsp spec) 46.2 % High 19-41 [facility] BUN/creatinine ratioOrdered By: Willy Esteban on 02-17-2025 Urea nitrogen/Creatinine [Mass ratio] 15.8 mg/mg 10-20 [facility] Basic Metabolic Profile (BMP )on 02-17-2025 BUN/CRE 15.8 RATIO Normal - [facility] Comment on above: Performed By: #### L 506.1001, L501.9520, L501.9910, L500.4050, L100.0100 #### [facility] [address] [place], [address] Calcium [Mass/Vol] 9.8 mg/dL Normal 7.6-11.0 [facility] Comment on above: Performed By: #### L 506.1001, L501.9520, L501.9910, L500.4050, L100.0100 #### [facility] [address] [place], [address] Chloride [Moles/Vol] 106 mmol/L Normal 98-108 [facility] Comment on above: Performed By: #### L 506.1001, L501.9520, L501.9910, L500.4050, L100.0100 #### [facility] [address] [place], [address] CO2 [Moles/Vol] 20.5 mmol/L Low 21.0-32.0 [facility] Comment on above: Performed By: #### L 506.1001, L501.9520, L501.9910, L500.4050, L100.0100 #### [facility] [address] [place], [address] Creatinine [Mass/Vol] 0.96 mg/dL Normal 0.70-1.20 [facility] Comment on above: Performed By: #### L 506.1001, L501.9520, L501.9910, L500.4050, L100.0100 #### [facility] [address] [place], [address] ECRCL 95.16 ml/min Normal 50-250 [facility] Comment on above: Performed By: #### L 506.1001, L501.9520, L501.9910, L500.4050, L100.0100 #### [facility] [address] [place], [address] GAP 13 Normal 5-15 [facility] Comment on above: Performed By: #### L 506.1001, L501.9520, L501.9910, L500.4050, L100.0100 #### [facility] [address] [place], [address] GFR/1.73 sq M.predicted among non-blacks MDRD (S/P/Bld) [Vol rate/Area] 87 mL/min/{1.73_m2} Normal >60 [facility] Comment on above: Result Comment: mL/m in/1.73m2 CKD-EPI Creatinine Equation (2020) Performed By: #### L 506.1001, L501.9520, L501.9910, L500.4050, L100.0100 #### [facility] [address] [place], [address] Glucose [Mass/Vol] 103 mg/dL High 70-99 [facility] Comment on above: Performed By: #### L 506.1001, L501.9520, L501.9910, L500.4050, L100.0100 #### [facility] [address] [place], [address] Potassium [Moles/Vol] 4.4 mmol/L Normal 3.3-5.1 [facility] Comment on above: Result Comment: Hemo lysis present, Results??could be affected. ?? Performed By: #### L 506.1001, L501.9520, L501.9910, L500.4050, L100.0100 #### [facility] [address] [place], [address] Sodium [Moles/Vol] 139 mmol/L Normal 133-145 [facility] Comment on above: Performed By: #### L 506.1001, L501.9520, L501.9910, L500.4050, L100.0100 #### [facility] [address] [place], [address] Urea nitrogen [Mass/Vol] 15 mg/dL Normal 4-19 [facility] Comment on above: Performed By: #### L 506.1001, L501.9520, L501.9910, L500.4050, L100.0100 #### [facility] [address] [place], [address] Basophil percentageOrdered B y: Willy Lucinda-Raghav on 02-17-2025 Basophils/100 WBC (Bld) 1.2 % High 0-1 [facility] Brain/Head without Contrasto n 02-17-2025 Brain/Head without Contrast [facility] Imaging Services [address] [address] Brain/Head without Contrast MR#: [id number] Acct: [id number] Name: TANNER PORTER Rep #: [id number] : 1955 M 69 From: Alexander walker MD PCP: Dr. Edwin Donald MD Status: [facility] ER Study: Brain/Head without Contrast Date of Exam: 01/26 03/21 Exam# [id number] Ordering Dr: Luke Wallace MD PROCEDURE: BRAIN/HEAD WITHOUT CONTRAST 02/17/2025 REASON FOR EXAM: HEAD TRAUMA, HEADACHE AND PRIOR HISTORY BLEED TECHNIQUE: CT images of the brain were acquired without intravenous contrast. Multiplanar reformats were acquired. COMPARISON: CT brain 01/08/2025 and 12/17/2024 FINDINGS: * ACUTE: No acute infarct or hemorrhage. No mass effect or herniation. * BRAIN PARENCHYMA: Signal intensities are within normal limits for age. * VENTRICLES/EXTRA-AXIAL SPACES: No hydrocephalus or extra-axial fluid collections. * EXTRACRANIAL STRUCTURES: Visualized osseous structures are normal. Soft tissues are normal. CT/Brain/Head without Contrast IMPRESSION: No acute intracranial abnormality. Reading Location: [facility] CC: Dr. Edwin Donald MD; Dr. Luke Wallace MD Accounting Software Specialist: Signed Normal [facility] CBC W/Diff, Automatedon 01-26 Absolute Lymph 2.40 X10 3/uL Normal 0.83-4.51 [facility] Comment on above: Performed By: #### L 506.1001, L501.9520, L501.9910, L500.4050, L100.0100 #### [facility] [address] [place], [address] Absolute Neut 2.2 X10 3/uL Normal 2.0-7.7 [facility] Comment on above: Performed By: #### L 506.1001, L501.9520, L501.9910, L500.4050, L100.0100 #### [facility] [address] [place], [address] Basophils/100 WBC (Bld) 1.2 % High 0-1 [facility] Comment on above: Performed By: #### L 506.1001, L501.9520, L501.9910, L500.4050, L100.0100 #### [facility] [address] [place], [address] Eosinophils/100 WBC (Bld) 2.9 % Normal 0-5 [facility] Comment on above: Performed By: #### L 506.1001, L501.9520, L501.9910, L500.4050, L100.0100 #### [facility] [address] [place], [address] Erythrocyte distribution width (RBC) [Ratio] 12.8 % Normal 11.6-14.6 [facility] Comment on above: Performed By: #### L 506.1001, L501.9520, L501.9910, L500.4050, L100.0100 #### [facility] [address] [place], [address] Hematocrit (Bld) [Volume fraction] 48.4 % Normal 40-54 [facility] Comment on above: Performed By: #### L 506.1001, L501.9520, L501.9910, L500.4050, L100.0100 #### [facility] [address] [place], [address] Hemoglobin (Bld) [Mass/Vol] 16.6 g/dL High 13.0-16.5 [facility] Comment on above: Performed By: #### L 506.1001, L501.9520, L501.9910, L500.4050, L100.0100 #### [facility] [address] [place], [address] IG% 0.000 Normal 0.0-0.9 [facility] Comment on above: Result Comment: IG% - Immature Granulocytes (promyelocytes, myelocytes and metamyelocytes) > 1% indicates that a LEFT SHIFT is Present. Performed By: #### L 506.1001, L501.9520, L501.9910, L500.4050, L100.0100 #### [facility] [address] [place], [address] Lymphocytes/100 WBC (Bld) 46.2 % High 19-41 [facility] Comment on above: Performed By: #### L 506.1001, L501.9520, L501.9910, L500.4050, L100.0100 #### [facility] [address] [place], [address] MCH (RBC) [Entitic mass] 30.0 pg Normal 27.0-32.0 [facility] Comment on above: Performed By: #### L 506.1001, L501.9520, L501.9910, L500.4050, L100.0100 #### [facility] [address] [place], [address] MCHC (RBC) [Mass/Vol] 34.3 g/dL Normal 32-36 [facility] Comment on above: Performed By: #### L 506.1001, L501.9520, L501.9910, L500.4050, L100.0100 #### [facility] [address] [place], [address] MCV (RBC) [Entitic vol] 87.4 fL Normal 80-94 [facility] Comment on above: Performed By: #### L 506.1001, L501.9520, L501.9910, L500.4050, L100.0100 #### [facility] [address] [place], [address] Monocytes/100 WBC (Bld) 6.7 % Normal 0-10 [facility] Comment on above: Performed By: #### L 506.1001, L501.9520, L501.9910, L500.4050, L100.0100 #### [facility] [address] [place], [address] Neutrophils/100 WBC (Bld) 43.0 % Low 47-70 [facility] Comment on above: Performed By: #### L 506.1001, L501.9520, L501.9910, L500.4050, L100.0100 #### [facility] [address] [place], [address] Nucleated RBC (Bld) [#/Vol] 0 10*3/uL Normal 0-5 [facility] Comment on above: Performed By: #### L 506.1001, L501.9520, L501.9910, L500.4050, L100.0100 #### [facility] [address] [place], [address] Platelet mean volume (Bld) [Entitic vol] 10.8 fL Normal 6.2-12.0 [facility] Comment on above: Performed By: #### L 506.1001, L501.9520, L501.9910, L500.4050, L100.0100 #### [facility] [address] [place], [address] Platelets (Bld) [#/Vol] 221 10*3/uL Normal 150-450 [facility] Comment on above: Performed By: #### L 506.1001, L501.9520, L501.9910, L500.4050, L100.0100 #### [facility] [address] [place], [address] RBC (Bld) [#/Vol] 5.54 10*6/uL Normal 4.6-6.2 [facility] Comment on above: Performed By: #### L 506.1001, L501.9520, L501.9910, L500.4050, L100.0100 #### [facility] [address] [place], [address] RDW SD 41.3 fl Normal 35.1-43.9 [facility] Comment on above: Performed By: #### L 506.1001, L501.9520, L501.9910, L500.4050, L100.0100 #### [facility] [address] [place], [address] WBC (Bld) [#/Vol] 5.2 10*3/uL Normal 4.4-11.0 [facility] Comment on above: Performed By: #### L 506.1001, L501.9520, L501.9910, L500.4050, L100.0100 #### [facility] [address] [place], [address] Carbon dioxide, total [Moles /volume] in Central venous bloodOrdered By: Willy Esteban on 02-17-2025 CO2 [Moles/Vol] 20.5 mmol/L Low 21.0-32.0 [facility] Chest 1 View (Portable)on Chest 1 View (Portable) [facility] Imaging Services [address] [place] [address] Chest 1 View (Portable) MR#: [id number] Acct: [id number] Name: TANNER PORTER Rep #: [id number] : 1955 M 69 From: Cristi Montoya MD PCP: Dr. Edwin Donald MD Status: REG ER Study: Chest 1 View (Portable) Date of Exam: 02/17/25 Exam# [id number] Ordering Dr: Willy Esteban DO EXAM: XR Chest, 1 View CLINICAL INDICATION: HTN TECHNIQUE: Frontal view of the chest. COMPARISON: No relevant prior studies available. FINDINGS: LUNGS AND PLEURAL SPACES: Unremarkable. No consolidation. No pneumothorax. HEART: Unremarkable. No cardiomegaly. MEDIASTINUM: Unremarkable. Normal mediastinal contour. BONES/JOINTS: Unremarkable. No acute fracture. RAD/Chest 1 View (Portable) IMPRESSION: No acute cardiopulmonary process. Reading Location[facility] CC: Dr. Willy Esteban DO; Dr. Edwin Donald MD Accounting Software Specialist: Signed Normal [facility] Chloride assayOrdered By: Kj Esteban on 02-17-2025 Chloride [Moles/Vol] 106 mmol/L 98-108 [facility] Emergency Department Summary on 02-17-2025 Emergency Department Summary [facility] Medical Records Department [address] [place] [address] Emergency Department Summary 02/17/25 MR#: [id number] Acct: [id number] Name: TANNER PORTER Rep #: [id number] : 1955 69 From: Willy Esteban DO PCP: Dr. Edwin Donald MD Status:DEP ER Location: ED HPI History of Present Illness Chief Complaint: Hypertension Narrative Narrative: Chief complaint and HPI: HTN. 69-year-old male with past medical history of anxiety, HTN, HLD presents for evaluation of HTN. Patient states that he felt lightheaded over the weekend in which he took his blood pressure. He states on Monday his blood pressure was 180/120. Patient states he took his normal losartan which is 50 mg twice daily. Patient states he checked his blood pressure throughout the day and it fluctuated. He states it became high again and he did not know what to do so he took a Valium. This improved his blood pressure. Patient states he tried to call his primary care physician today and they did not answer so he presents here. On arrival blood pressure was 163/107. On evaluation, blood pressure is 140/87. Currently denying any lightheadedness, headache, chest pain, shortness of breath, abdominal pain, nausea, vomiting. Review of systems: See HPI Medications: As listed on the chart Allergies: As listed on the chart PFSH: Per chart Vital signs: As listed on the chart. Reviewed. Physical exam: Gen: A O x3, NAD Head: Normocephalic, atraumatic Eyes: No sclera icterus, conjunctiva clear ENT: Moist mucous membranes Neck: Trachea midline, No JVD CV: RRR, no murmurs, no peripheral edema Resp: Lungs CTA BL, no w/r/c GI: Abd soft, non-distended, non-tender, no r/r/g Musc: Full ROM, no deformity Skin: Warm, dry Neuro: Alert, oriented, grossly intact, sensation intact Psych: Cooperative, appropriate mood and affect PFS PFS Medical History Anxiety Former smoker Pulmonary embolism Migraines Excessive daytime sleepiness Peripheral neuropathy Generalized weakness Degenerative cervical disc Hyperglycemia Hypophosphatemia Hypokalemia Vitamin D deficiency Myalgia Urinary frequency Vertigo Pulmonary embolism Hyperlipidemia Anxiety Prostate cancer Colon cancer HTN (hypertension) Home Medications ???Medication ???Instructions ???Recorded ???Last Taken ???Type pravastatin 40 mg tablet 40 mg PO QHS 01/16/18 02/17/25 His tory polyethylene glycol 3350 17 17 g PO DAILY 03/29/19 Unknown His tory gram/dose oral powder multivitamin 1 tab PO DAILY 04/02/19 02/17/25 H istory gabapentin 300 mg capsule 300 mg PO BIDCM PRN numbness and 0 04/22/20 02/16/25 History tingling levothyroxine 25 mcg tablet 25 mcg PO DAILY 04/07/24 02/16/25 History buprenorphine 8 mg-naloxone 2 mg 0.25 tab sublingual TID 12/17/24 0 02/17/25 History sublingual tablet naproxen 500 mg tablet 500 mg PO BID PRN pain 12/17/24 Un known History clonidine HCl 0.1 mg tablet 0.1 mg PO Q8H PRN hypertensive 3 02/17/25 Unknown Rx days #9 tabs losartan 50 mg tablet 50 mg PO BID 02/17/25 02/17/25 His tory ondansetron HCl 4 mg tablet 4 mg PO Q6H PRN PRN nausea 5 Unknown History Allergy/AdvReac Type Severity Reaction Status Date / Time amlodipine Allergy Unknown Unknown Verified 02/17/25 19:59 Family History Brother Heart disease Myocardial infarction Surgical History s/p port placement History of colon resection Social History (Updated 01/08/25 @ 14:37 by Darby Vasquez) household members: significant other housing: house Smoking Status: Former smoker alcohol intake: never EXAM Physical Exam Const Vital Signs: 02/17/25 10:33 02/17/25 10:45 02/17/25 12:32 Temperature 97.4 F L Temperature Source Oral Pulse Rate 86 66 Respiratory Rate 18 16 Respiratory Effort Normal Respiratory Pattern Normal Blood Pressure 163/107 H 148/93 H Blood Pressure Mean 125 111 Pulse Ox 99 97 Oxygen Delivery Method Room Air 02/17/25 13:33 02/17/25 14:10 02/17/25 14:24 Temperature Temperature Source Pulse Rate 68 65 64 Respiratory Rate 16 16 16 Respiratory Effort Respiratory Pattern Blood Pressure 184/99 H 159/124 H 155/97 H Blood Pressure Mean 127 135 116 Pulse Ox 97 96 97 Oxygen Delivery Method Room Air Room Air Room Air 02/17/25 14:45 Temperature 97.7 F L Temperature Source Pulse Rate 64 Respiratory Rate 16 Respiratory Effort Respiratory Pattern Blood Pressure 155/97 H Blood Pressure Mean 116 Pulse Ox 99 Oxygen Delivery Method MDM MDM MDM Narrative Medical decision making (more content not included)... Normal [facility] Eosinophil percentageOrdered By: Willy Esteban on 02-17-2025 Eosinophils/100 WBC (Bld) 2.9 % 0-5 [facility] Erythrocyte distribution wid th ratioOrdered By: Willydylan Esteban on 02-17-2025 Erythrocyte distribution width (RBC) [Ratio] 12.8 % 11.6-14.6 [facility] Erythrocyte distribution wid th standard deviationOrdered By: Willy Avilez on 02-17-2025 Erythrocyte distribution width (RBC) [Entitic vol] 41.3 fL 35.1-43.9 [facility] Erythrocyte distribution width (RBC) [Ratio] 41.3 fl 35.1-43.9 [facility] Estimation of creatinine tanja aranceOrdered By: Willy Esteban on 02-17-2025 Estimated Creatinine Clearance Calc 95.16 ml/min 50-250 [facility] GFR/1.73 sq M.predicted laine g non-blacks MDRD (S/P/Bld) [Vol rate/Area]Ordered By: Willy Esteban on 02-17-2025 Estimated GFR (MDRD) Non-Af Amer 87 >60 [facility] Comment on above: mL/min/1.73m2 CKD-EP I Creatinine Equation (2020) Glomerular filtration rate ( GFR) estimation/1.73 sq m using serum, plasma, or whole bOrdered By: Willy Esetban on 02-17-2025 GFR/1.73 sq M.predicted among non-blacks MDRD (S/P/Bld) [Vol rate/Area] 87 mL/min/{1.73_m2} >60 [facility] Comment on above: mL/min/1.73m2 CKD-EP I Creatinine Equation (2020) Hematocrit Auto (Bld) [Volum e fraction]Ordered By: Willy Esteban on 02-17-2025 Hematocrit (Bld) [Volume fraction] 48.4 % 40-54 [facility] Hemoglobin measurementOrdere d By: Willy Esteban on 02-17-2025 Hemoglobin (Bld) [Mass/Vol] 16.6 g/dL High 13.0-16.5 [facility] Immature granulocytes/100 WB C Auto (Bld)Ordered By: Willy Esteban on 02-17-2025 Immature granulocytes/100 WBC (Bld) 0.000 % 0.0-0.9 [facility] Comment on above: IG% - Immature Granu locytes (promyelocytes, myelocytes and metamyelocytes) > 1% indicates that a LEFT SHIFT is Present. L499.0042on 02-17-2025 Trop T High Sen 7 ng/L Normal <=22 [facility] Comment on above: Performed By: #### L 500.2500, L503.7505, L100.0100 #### [facility] [address] [place], [address] L501.4021on 02-17-2025 Trop T High Sen 7 ng/L Normal <=22 [facility] Comment on above: Performed By: #### L 506.1001, L501.9520, L501.9910, L500.4050, L100.0100 #### [facility] [address] [place], [address] Lymphocytes Auto (Unsp spec) [#/Vol]Ordered By: Willy Esteban on 02-17-2025 Lymphocytes (Bld) [#/Vol] 2.40 10*3/uL 0.83-4.51 [facility] Lymphocytes/100 WBC Auto (Un sp spec)Ordered By: Willy Esteban on 02-17-2025 Lymphocytes/100 WBC (Bld) 46.2 % High 19-41 [facility] MCV (mean corpuscular volume ) determinationOrdered By: Willy Esteban on 03-24-2025 MCV (RBC) [Entitic vol] 87.4 fL 80-94 [facility] Mean corpuscular hemoglobin (MCH) determinationOrdered By: Willy Esteban on 02-17-2025 MCH (RBC) [Entitic mass] 30.0 pg 27.0-32.0 [facility] Mean corpuscular hemoglobin concentration (MCHC) determinationOrdered By: Willy Esteban on 02-17-2025 MCHC (RBC) [Mass/Vol] 34.3 g/dL 32-36 [facility] Mean platelet volume determi nationOrdered By: Willy Esteban on 02-17-2025 Platelet mean volume (Bld) [Entitic vol] 10.8 fL 6.2-12.0 [facility] Monocyte percentageOrdered B y: Willy Esteban on 02-17-2025 Monocytes/100 WBC (Bld) 6.7 % 0-10 [facility] Neutrophil percentageOrdered By: Willy Esteban on 02-17-2025 Neutrophils/100 WBC (Bld) 43.0 % Low 47-70 [facility] No Panel InformationOrdered By: Willy Esteban on 02-17-2025 Troponin T High Sensitivity 7 ng/L <22 [facility] Nucleated red blood cell per centageOrdered By: Willy Esteban on 02-17-2025 Nucleated RBC/100 WBC (Bld) [Ratio] 0 % 0-5 [facility] Platelet countOrdered By: Kj Esteban on 02-17-2025 Platelets (Bld) [#/Vol] 221 10*3/uL 150-450 [facility] Potassium (Unsp spec) [Mass/ Vol]Ordered By: Willy Esteban on 02-17-2025 Potassium [Moles/Vol] 4.4 mmol/L 3.3-5.1 [facility] Comment on above: Hemolysis present, R esults could be affected. Potassium measurement (mass/ volume)Ordered By: Willy Esteban on 02-17-2025 Potassium (Unsp spec) [Mass/Vol] 4.4 mmol/L 3.3-5.1 [facility] Comment on above: Hemolysis present, R esults could be affected. RBC Auto (Bld) [#/Vol]Ordere d By: Willy Esteban on 02-17-2025 RBC (Bld) [#/Vol] 5.54 10*6/uL 4.6-6.2 [facility] Serum creatinine measurement (mass/volume)Ordered By: Willy Esteban on 02-17-2025 Creatinine [Mass/Vol] 0.96 mg/dL 0.70-1.20 [facility] Serum glucose measurement (m ass/volume)Ordered By: Willy Esteban on 02-17-2025 Glucose [Mass/Vol] 103 mg/dL High 70-99 [facility] Serum or plasma calcium jayne urement (mass/volume)Ordered By: Willy Avilez on 02-17-2025 Calcium [Mass/Vol] 9.8 mg/dL 7.6-11.0 [facility] Serum or plasma urea nitroge n measurement (mass/volume)Ordered By: Willy Esteban on 02-17-2025 Urea nitrogen [Mass/Vol] 15 mg/dL 4-19 [facility] Sodium levelOrdered By: Joss Esteban on 02-17-2025 Sodium [Moles/Vol] 139 mmol/L 133-145 [facility] Troponin T.cardiac High sens itivity method [Mass/Vol]Ordered By: Willy Avilez on 02-17-2025 Troponin T High Sensitivity 2 Hour 7 ng/L <22 [facility] Troponin T.cardiac [Mass/vol ume] in Serum or Plasma by High sensitivity methodOrdered By: Willy Esteban on 02-17-2025 Troponin T.cardiac High sensitivity method [Mass/Vol] 7 ng/L <22 [facility] White blood cell (WBC) count Ordered By: Willy Esteban on 02-17-2025 WBC (Bld) [#/Vol] 5.2 10*3/uL 4.4-11.0 [facility] Brain/Head without Contrasto n 01-08-2025 Brain/Head without Contrast [facility] Imaging Services [address] [place] [address] Brain/Head without Contrast MR#: [id number] Acct: [id number] Name: TANNER PORTER Rep #: [id number] : 1955 M 69 From: Cristi Montoya MD PCP: Dr. Edwin Donald MD Status: REG ER Study: Brain/Head without Contrast Date of Exam: 12/28 01/21 Exam# [id number] Ordering Dr: Jose Francisco Lieberman DO EXAM: CT Head Without Intravenous Contrast CLINICAL INDICATION: TECHNIQUE: Axial computed tomography images of the head/brain without intravenous contrast. This CT exam was performed using one or more of the following dose reduction techniques: automated exposure control, adjustment of the mA and/or kV according to patient size, and/or use of iterative reconstruction technique. COMPARISON: No relevant prior studies available. FINDINGS: BRAIN AND EXTRA-AXIAL SPACES: No acute intracranial hemorrhage, midline shift or mass effect. If symptoms persist, further evaluation with MRI is recommended. No significant white matter disease. BONES/JOINTS: Unremarkable. No acute fracture. SOFT TISSUES: Unremarkable. SINUSES: Unremarkable as visualized. No acute sinusitis. MASTOID AIR CELLS: Unremarkable as visualized. No mastoid effusion. CT/Brain/Head without Contrast IMPRESSION: No acute intracranial hemorrhage, midline shift or mass effect. If symptoms persist, further evaluation with MRI is recommended. Reading Location: [facility] CC: Dr. Edwin Donald MD; Dr. Jose Francisco Lieberman DO Accounting Software Specialist: Signed Normal [facility] Emergency Department Summary on 01-08-2025 Emergency Department Summary [facility] Medical Records Department [address] [place] [address] Emergency Department Summary 01/08/25 MR#: [id number] Acct: [id number] Name: TANNER PORTER Rep #: [id number] : 1955 69 From: Jose Francisco Lieberman DO PCP: Dr. Edwin Donald MD Status:DEP ER Location: ED HPI History of Present Illness Chief Complaint: Head Injury [facility] Medical History (Updated 01/08/25 @ 16:[address] Jose Francisco Lieberman DO) Anxiety Former smoker Pulmonary embolism Migraines Excessive daytime sleepiness Peripheral neuropathy Generalized weakness Degenerative cervical disc Hyperglycemia Hypophosphatemia Hypokalemia Vitamin D deficiency Myalgia Urinary frequency Vertigo Pulmonary embolism Hyperlipidemia Anxiety Prostate cancer Colon cancer HTN (hypertension) Home Medications ???Medication ???Instructions ???Recorded ???Last Taken ???Type pravastatin 40 mg tablet 40 mg PO QHS 01/16/18 Unknown Hist ory polyethylene glycol 3350 17 17 g PO DAILY 03/29/19 Unknown His tory gram/dose oral powder multivitamin 1 tab PO DAILY 04/02/19 Unknown Hi story gabapentin 300 mg capsule 300 mg PO BIDCM PRN numbness and 0 04/22/20 Unknown History tingling losartan 25 mg tablet 50 mg PO BID 04/06/24 Unknown Hist ory levothyroxine 25 mcg tablet 25 mcg PO DAILY 04/07/24 Unknown H istory buprenorphine 8 mg-naloxone 2 mg tab sublingual 12/17/24 Unknown Hi story sublingual tablet naproxen 500 mg tablet 500 mg PO BID PRN pain 12/17/24 Un known History Allergy/AdvReac Type Severity Reaction Status Date / Time amlodipine Allergy Unknown Unknown Verified 01/08/25 14:31 Family History Brother Heart disease Myocardial infarction Surgical History s/p port placement History of colon resection Social History (Updated 01/08/25 @ 14:37 by Darby Vasquez) household members: significant other housing: house Smoking Status: Former smoker alcohol intake: never EXAM Physical Exam Const Vital Signs: 01/08/25 14:29 01/08/25 14:36 01/08/25 16:20 Temperature 98 F 97.3 F L Temperature Source Temporal Pulse Rate 74 87 Respiratory Rate 16 20 H Respiratory Effort Normal Non-Labored Respiratory Depth Normal Respiratory Pattern Normal Blood Pressure 157/87 H 138/79 H Blood Pressure Mean 110 98 Pulse Ox 98 99 99 Oxygen Delivery Method Room Air Room Air MDM MDM MDM Narrative Medical decision making narrative: HISTORY OF PRESENT ILLNESS: Causing a brain bleed. Denies loss of consciousness. Denies blood thinners 69-year-old male presents with head trauma. Notes he hit the back of his head on the Door today. Is concerned because his same area where he fell and hit his head several weeks ago. Just want to make sure he does not have another brain bleed. REVIEW OF SYSTEMS: Pertinent positives: Head trauma Pertinent negatives: LOC, focal weakness, visual disturbance PHYSICAL EXAM: Nursing triage notes reviewed, Vital signs reviewed Primary Survey Airway: Intact Breathing: Bilateral breath sounds Circulation: Palpable bilateral femorals, Palpable bilateral radial, Palpable bilateral DP and Palpable bilateral PT Disability / Spine precautions GCS Score: Eye Openin Verbal Response: 5 Motor Response: 6 Secondary Survey Constitutional: Please see MDM Head: Atraumatic, Midface stable, NO jaw malocclusion, No Cephalohematoma, and No Lacerations noted Cervical spine / Neck: No cervical spine bony tenderness, crepitance, or stepoff deformity Trachea midline Lungs: Clear to auscultation, No asymmetric rise and No crepitus, no flail chest Cardiac: Regular rate and rhythm and No murmurs Abdomen: Soft, Nontender and No rebound Pelvis: Pelvis stable to compression : No evidence of genital injury Back: No midline bony tenderness to thoracic/lumbar/sacral spines Neuro: Alert and orient x 3, at baseline, intact strength and sensation in bilateral upper and lower extremities. Normal gait. Extremities: NO gross Deformities Psych: Normal affect Nursing triage notes reviewed, Vital signs reviewed MEDICAL DECISION MAKING: Chief Complaint: Head trauma External records reviewed: Prior imaging reviewed. Reviewed CT scan from November 2024 which showed tiny acute parafalcine subdural hematoma Factors affecting care: subdural hematoma Social determinants of health: none History obtained from others: none Consults: none [facility] Narrative: Patient was initially hemodynamically stable, afebrile and nontoxic-appearing. Primary secondary trauma survey concerning for the following ICH, cervical spine injury. I considered the following differential nimo (more content not included)... Normal [facility] Spine Cervical without Contr ason 01-08-2025 Spine Cervical without Contras [facility] Imaging Services [address] [place], [place] [id number] Spine Cervical without Contras MR#: [id number] Acct: [id number] Name: PORTERTANNER MONTILLA Rep #: [id number] : 1955 M 69 From: Cristi Montoya MD PCP: Dr. Edwin Donald MD Status: REG ER Study: Spine Cervical without Contras Date of Exam: 0 01/08/25 Exam# [id number] Ordering Dr: Jose Francisco Lieberman DO EXAM: CT Cervical Spine Without Intravenous Contrast CLINICAL INDICATION: TECHNIQUE: Axial computed tomography images of the cervical spine without intravenous contrast. This CT exam was performed using one or more of the following dose reduction techniques: automated exposure control, adjustment of the mA and/or kV according to patient size, and/or use of iterative reconstruction technique. COMPARISON: No relevant prior studies available. FINDINGS: VERTEBRAE: Degenerative facet arthropathy throughout the lower cervical spine. No acute fracture. DISCS/SPINAL CANAL/NEURAL FORAMINA: Degenerative disc disease lower cervical spine. SOFT TISSUES: Unremarkable. CT/Spine Cervical without Contras IMPRESSION: 1. No acute fracture. 2. Degenerative changes cervical spine as described. Reading Location: [facility] CC: Dr. Edwin Donald MD; Dr. Jose Francisco Liebemran DO Accounting Software Specialist: Signed [facility] Visiton 01-07-2025 Follow-up visit [id number] Donnie Porter [facility] 1955 M Date Provider Department Center 01/07/2025 [facility] None Family History Problem Relation Age of Onset No Known Problems Father No Known Problems Mother Family Status - Relation Status Age at Father Mother Level of Service:49591 IN OFFICE/OUTPATIENT ESTABLISHED [facility] 10 MIN Reason for Visit and Comments: Follow-up [272560] - Patient present for CT head follow up. Patient had a fall in November which resulted in SDH. Patient reports improvement in headaches, no new blurry vision. Normal [facility] Progress Noteon 01-07-2025 Progress Note NEUROSURGERY and SPI NE FOLLOW-UP NOTE Patient Name: Tanner Porter Patient : 1955 PCP: YASH DONALD MD History of Present Illness: 69 y.o. presents for hospital follow up. He has a history of falling on the ice on 12/14/24. He was not on anticoagulation. He was found to have a small acute left parafalcine subdural hemorrhage. He is doing well overall, feels his headache and nausea are improving with time. He denies any new neurological symptoms. 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 He had a repeat CT head completed and is here to review the results. Chief Complaint Patient presents with Follow-up Patient present for CT head follow up. Patient had a fall in November which resulted in SDH. Patient reports improvement in headaches, no new blurry vision. Past Medical History: Past Medical History: Diagnosis Date Arthritis Cancer (CMS/HCC) (HCC) colon Hyperlipidemia Hypertension Other disorders of kidney and ureter in diseases classified elsewhere Psychiatric problem Thyroid disease Past Surgical History: Past Surgical History: Procedure Laterality Date COLON SURGERY PROSTATE SURGERY seeds Home Medications: Prior to Admission medications Medication Sig Start Date End Date Taking? Authorizing Provider acetaminophen (Tylenol) 500 MG tablet Take 2 tablets (1,000 mg) by mouth every 8 hours. 12/18/24 01/17/25 Yes KATEY Vinson CNP buprenorphine-naloxone (Suboxone) 8-[address] 0.25 tablets under the tongue as needed (4 times daily as needed). 02/05/24 Yes Historical Provider, gabapentin (Neurontin) 300 MG capsule Take 300 mg by mouth 2 times daily. Yes Historical Provider, levothyroxine (Synthroid, Levoxyl) 25 MCG tablet Take 25 mcg by mouth every morning (before breakfast). Yes Historical Provider, losartan (Cozaar) 25 MG tablet Take 25 mg by mouth 2 times daily. Yes Historical Provider, mirabegron ER (Myrbetriq) 25 MG 24 hr tablet Take 25 mg by mouth daily. 05/21/24 Yes Historical Provider, Multiple Vitamins-Minerals (One-A-Day Mens 50+ Advantage) tablet Take 1 tablet by mouth daily. Yes Historical Provider, pravastatin (Pravachol) 40 MG tablet Take 40 mg by mouth Nightly. Yes Historical Provider, methocarbamol (Robaxin) 500 MG tablet Take 1 tablet (500 mg) by mouth every 8 hours for 10 days. Patient not taking: Reported on 01/07/2025 12/18/24 12/28/24 KATEY Vinson CNP Allergies: Atenolol, Amlodipine, and Beta adrenergic blockers Social History: TOBACCO: reports that he has never smoked. He does not have any smokeless tobacco history on file. ETOH: reports no history of alcohol use. RECREATIONAL DRUG USE: Social History Substance and Sexual Activity Drug Use No Types: Opiates Family History: Family History Problem Relation Name Age of Onset No Known Problems Father No Known Problems Mother Review of Systems: Review of Systems 12-point ROS negative unless otherwise documented Physical Examination: Vitals: 01/07/25 1331 BP: 136/83 Pulse: 86 Physical Exam Awake and alert, oriented BUE 5/5 BLE 5/5 No drift Cranial nerves grossly intact Speech normal Results Labs: Last 24hrs No results found for this or any previous visit (from the past 24 hours). Radiology Personal review: Most recent CT brain reviewed and discussed with the patient in detail. IMPRESSION: No acute intracranial abnormalities. Interval resolution of the tiny left parafalcine subdural hematoma. ASSESSMENT / PLAN : Overall, Tanner has recovered well following his TBI in which he suffered a small parafalcine, acute SDH. At this point, his exam is reassuring, symptoms continue to improve and most recent CT shows his hematoma has resolved. We discussed the significance of his injury, concerning red flags to monitor in the future and advised him to gradually increase his activity and take mental rest until he feels back to himself. No further imaging necessary. Tanner can follow up with our team on a PRN basis moving forward Anders Robertson MD [facility] Neurosurgery I have spent 15 minutes reviewing previous notes, test results, and face to face with the patient discussing the diagnosis and importance of compliance with the treatment plan, as well as documenting on the day of the visit. Normal [facility] CT HEAD WO IV CONTRASTon CT HEAD WO IV CONTRAST Patient Name: TANNER PORTER : 1955 Exam Date/Time: 01/01/2025 15:23 Procedure: CT HEAD WO IV CONTRAST Ordering Provider: VILLASENOR KRISTI Reason For Exam: Subdural hematoma CT HEAD WITHOUT CONTRAST CLINICAL HISTORY: Subdural hematoma COMPARISON: 12/18/2024 TECHNIQUE: Helical CT of the brain without contrast. Dose reduction was employed with automated exposure control. FINDINGS: Acute Findings: The previously noted tiny parafalcine subdural hematoma has resolved and no new acute hemorrhage is identified. No evidence of acute infarct, brain edema or mass effect. Chronic Changes: None identified. Ventricles and sulci: Within normal limits for age. Other: The skull, included paranasal sinuses and orbits are normal. IMPRESSION: No acute intracranial abnormalities. Interval resolution of the tiny left parafalcine subdural hematoma. Report Dictated on Electronically Signed By: Rai Olson MD Electronically Signed Date/Time: 01/01/2025 3:53 PM EST F/U FALL Nov WITH SDH Normal [facility] CT Head WO contraston 2024 No acute intracranial abnormalities. Interval resolution of the tiny left parafalcine subdural hematoma. Report Dictated on Electronically Signed By: Rai Olson MD Electronically Signed Date/Time: 01/01/2025 3:53 PM EST [facility] Patient Name: TANNER HOWELL : 1955 Exam Date/Time: 01/01/2025 15:23 Procedure: CT HEAD WO IV CONTRAST Ordering Provider: VILLASENOR KRISTI Reason For Exam: Subdural hematoma CT HEAD WITHOUT CONTRAST CLINICAL HISTORY: Subdural hematoma COMPARISON: 12/18/2024 TECHNIQUE: Helical CT of the brain without contrast. Dose reduction was employed with automated exposure control. FINDINGS: Acute Findings: The previously noted tiny parafalcine subdural hematoma has resolved and no new acute hemorrhage is identified. No evidence of acute infarct, brain edema or mass effect. Chronic Changes: None identified. Ventricles and sulci: Within normal limits for age. Other: The skull, included paranasal sinuses and orbits are normal. [facility] Rai Olson M D - 01/01/2025 Patient Name: TANNER PORTER : 1955 Exam Date/Time: 01/01/2025 15:23 Procedure: CT HEAD WO IV CONTRAST Ordering Provider: VILLASENOR KRISTI Reason For Exam: Subdural hematoma CT HEAD WITHOUT CONTRAST CLINICAL HISTORY: Subdural hematoma COMPARISON: 12/18/2024 TECHNIQUE: Helical CT of the brain without contrast. Dose reduction was employed with automated exposure control. FINDINGS: Acute Findings: The previously noted tiny parafalcine subdural hematoma has resolved and no new acute hemorrhage is identified. No evidence of acute infarct, brain edema or mass effect. Chronic Changes: None identified. Ventricles and sulci: Within normal limits for age. Other: The skull, included paranasal sinuses and orbits are normal. IMPRESSION: No acute intracranial abnormalities. Interval resolution of the tiny left parafalcine subdural hematoma. Report Dictated on Electronically Signed By: Rai Olson MD Electronically Signed Date/Time: 01/01/2025 3:53 PM EST [facility] Radiology Study observation (narrative) [facility] CT Head WO contrastOrdered B y: Rai Olson on 01-01-2025 [employer] Phone: 36on 12-31-2024 36 Left message with appointment reminder for CT and CT follow up. [facility] 3612-20-2024 36 Pt states he is retu rning call to office. Please advise. [facility] 36on 12-19-2024 36 First call made to reschedule appointment for a later time; pt was advised to call our office back at [phone]. Normal [facility] 36 Name of caller: Filipe richardson Contact phone number: [phone] Relationship to Patient: patient Provider: Practice: Neurosurgery Chief Complaint/Reason for Call: Patient would like to know if he can get a call back to reschedule appointment to a later time. Please advise Best time of day caller can be reached: Any Patient advised that office/PCP has 24-48 business hours to return their call: Yes [facility] 30on 12-18-2024 30 Problem: Pain - Adul t Goal: Verbalizes/displays adequate comfort level or baseline comfort level Outcome: Progressing Problem: Safety - Adult Goal: Free from fall injury Outcome: Progressing Problem: Discharge Planning Goal: Discharge to home or other facility with appropriate resources Outcome: Progressing Problem: Potential for Falls Goal: I will remain free of falls Outcome: Progressing Normal [facility] [id number] 12-18-2024 [id number] Pt discussed 12-18-24 during interdisciplinary rounds. Pt is considered a Trauma Pt. Pt admitted due to a fall. Pt has a history of Opoid use. No needs anticipated but SW available as needs arise. [facility] [phone] PT recommending home with assist, discharge order placed. Scheduled pt a ride in [employer] for 3:15 pm with yellow cab. Nurse notified. [facility] [phone] Care Managment Initi al Assessment Date: 12/18/2024 Patient Name: Tanner Porter : 1955 Patient Information Source of Information: Patient Cognition/Language: WFL - Within Functional Limits Permission given to speak with patient technical account representative/caregiver as indicated: Yes Confirmation of Payer with patient/family: Yes Payer Name: Medicare : No Confirmation of Primary Care Physician: Confirmed PCP Name: Yash Donald MD Seen in last 2 years?: Yes Primary Caregiver: Self If assistance needed, confirmed caregiver ready, willing and able to care for patient at discharge: Yes Confirmed with: Tanner Living Arrangements Current Residence: House Number of Floors 2 Number of Entry Steps: 3 Bed/Bath Levels: Both second floor Facility: Facility Name: Plan to Return: Lives with: Spouse/significant other, Children Support Systems: Spouse/significant other, Children Activities of Daily Living Ambulation: Independent Bathing/Dressing: Independent Elimination/Continence/To ileting: Independent Feeding: Independent Who Assists with Activities of Daily Living: Instrumental Activities of Daily Living Prescription Coverage: Yes Pharmacy Used: [facility] in [place] Medication Management: Independent Transportation/Shopping: Independent Transportation Mode: Car Needs Assistance with Transportation at Discharge: Yes Meal Preparation: Independent Laundry/Cleaning: Independent Finances/Bill Paying: Independent Communication: Independent Types of Care Services/Equipment Utilized Care Services: Dialysis Type: Durable Medical Equipment: Patient's Goal/Discharge Plan Patient expects to be discharged to: home Discharge Planning Actions: Continue to follow Patient's Choice Rights and [employer] and Collaborative Relationships Disclosed as Indicated for Post-Acute Care: Interdisciplinary Team Engagement: Geriatric Assessment, PT/OT Social Work Referral for: Additional Information: Pt admitted s/p fall with tiny SDH. Introduced myself and role. Pt lives with and son. and son can provide assistance but pt will need a ride home. PT/OT pending. Will follow. Normal [facility] BASIC METABOLIC PANELon 11-28 Anion gap [Moles/Vol] 6 mmol/L Normal 3-13 [facility] Comment on above: Performed By: #### L AB103, LAB15 #### Dressed Poultry Grader: TAWANDA BLANKENSHIP ([phone]) [facility]) [address] [place] [address] Calcium [Mass/Vol] 8.7 mg/dL Low 8.8-10.0 [facility] Comment on above: Performed By: #### L AB103, LAB15 #### Dressed Poultry Grader: TAWANDA BLANKENSHIP ([phone]) [facility] ([facility]) [address] [place] [address] Chloride [Moles/Vol] 112 mmol/L High 98-107 [facility] Comment on above: Performed By: #### L AB103, LAB15 #### Dressed Poultry Grader: TAWANDA BLANKENSHIP ([phone]) [facility] ([facility]) [address] [place] [address] CO2 [Moles/Vol] 21 mmol/L Low 23-31 [facility] Comment on above: Performed By: #### L AB103, LAB15 #### Dressed Poultry Grader: TAWANDA BLANKENSHIP ([phone]) [facility] ([facility]) [address] [place] [address] Creatinine [Mass/Vol] 0.82 mg/dL Normal 0.72-1.25 [facility] Comment on above: Performed By: #### L AB103, LAB15 #### Dressed Poultry Grader: TAWANDA BLANKENSHIP ([phone]) [facility] [address] [place] [address] GLOMERULAR FILTRATION RATE ML/MIN/1.73 SQ M.PREDICTED >90.0 Normal >60.0 [facility] Comment on above: Result Comment: Calc ulation based on the Chronic Kidney Disease Epidemiology Collaboration (CKD-EPI) equation refit without adjustment for race Performed By: #### Viral SAINZ, LAB15 #### Dressed Poultry Grader: TAWANDA BLANKENSHIP ([phone]) [facility] ([facility]) [address] [place] [address] Glucose [Mass/Vol] 108 mg/dL Normal 82-115 [facility] Comment on above: Performed By: #### Viral [id number], LAB15 #### Dressed Poultry Grader: TAWANDA BLANKENSHIP ([phone]) [facility]) [address] [place] [address] Potassium [Moles/Vol] 3.5 mmol/L Normal 3.5-5.1 [facility] Comment on above: Result Comment: [facility] potassium values may be up to 0.5 mmol/L lower than serum values. Performed By: #### L EMELI, LAB15 #### Dressed Poultry Grader: TAWANDA BLANKENSHIP ([phone]) [facility] ([facility]) [address] [place] [address] Sodium [Moles/Vol] 139 mmol/L Normal 136-145 [facility] Comment on above: Performed By: #### L AB103, LAB15 #### Dressed Poultry Grader: TAWANDA BLANKENSHIP ([phone]) [facility] ([facility]) [address] [place] [address] [place] Urea nitrogen [Mass/Vol] 16 mg/dL Normal 9-23 [facility] Comment on above: Performed By: #### L AB103, LAB15 #### Dressed Poultry Grader: TAWANDA BLANKENSHIP ([phone]) [facility] [address] [place] [address] [place] Basic metabolic 1998 panelon 12-18-2024 Anion gap [Moles/Vol] 6 mmol/L 3 - 13 mmol/L [facility] Calcium [Mass/Vol] 8.7 mg/dL Low 8.8 - 10. 0 mg/dL [facility] Chloride [Moles/Vol] 112 mmol/L High 98 - 10 7 mmol/L [facility] CO2 [Moles/Vol] 21 mmol/L Low 23 - 31 mmol/L [facility] Creatinine [Mass/Vol] 0.82 mg/dL 0.72 - 1.25 mg/dL [facility] GFR/1.73 sq M.predicted (S/P/Bld) [Vol rate/Area] - PINF [facility] Comment on above: Calculation based on the Chronic Kidney Disease Epidemiology Collaboration (CKD-EPI) equation refit without adjustment for race Glucose [Mass/Vol] 108 mg/dL 82 - 115 mg/dL [facility] Interpretation and review of laboratory results Abnormal [facility] Potassium [Moles/Vol] 3.5 mmol/L 3.5 - 5.1 mmol/L [facility] Comment on above: Plasma potassium elena ues may be up to 0.5 mmol/L lower than serum values. Sodium [Moles/Vol] 139 mmol/L 136 - 145 mmol/L [facility] Urea nitrogen [Mass/Vol] 16 mg/dL 9 - 23 mg/dL [facility] CBC W Auto Differential pane l (Bld)on 12-18-2024 Basophils (Bld) [#/Vol] 0.1 10*3/uL 0.0 - 0.2 10*3/uL [facility] Basophils/100 WBC (Bld) 0.9 % 0.0 - 2.0 % [facility] Eosinophils (Bld) [#/Vol] 0.2 10*3/uL 0.0 - 0.5 10*3/uL [facility] Eosinophils/100 WBC (Bld) 2.8 % 0.0 - 6.0 % [facility] Erythrocyte distribution width (RBC) [Ratio] 13.5 % 11.5 - 15.0 % [facility] Hematocrit (Bld) [Volume fraction] 40.7 % 40.0 - 52.0 % [facility] Hemoglobin (Bld) [Mass/Vol] 13.9 g/dL 13.0 - 18.0 g/dL [facility] Immature granulocytes (Bld) [#/Vol] 0 10*3/uL NINF - 0.1 10*3/uL [facility] Immature granulocytes/100 WBC (Bld) 0.4 % 0.0 - 2.0 % [facility] Interpretation and review of laboratory results Normal [facility] Lymphocytes (Bld) [#/Vol] 2.1 10*3/uL 1.0 - 4.3 10*3/uL [facility] Lymphocytes/100 WBC (Bld) 27.2 % 15.0 - 45.0 % [facility] MCH (RBC) [Entitic mass] 29.5 pg 26.0 - 34.0 pg [facility] MCHC (RBC) [Mass/Vol] 34.2 % 30.5 - 36.0 % [facility] MCV (RBC) [Entitic vol] 86.4 fL 77.0 - 99.0 fL [facility] Monocytes (Bld) [#/Vol] 0.5 10*3/uL 0.0 - 0.9 10*3/uL [facility] Monocytes/100 WBC (Bld) 6.7 % 5.0 - 13.0 % [facility] Neutrophils (Bld) [#/Vol] 4.9 10*3/uL 1.8 - 7.5 10*3/uL [facility] Neutrophils/100 WBC (Bld) 62 % 38.0 - 82.0 % [facility] Nucleated RBC/100 WBC (Bld) [Ratio] 0 % [facility] Platelet mean volume (Bld) [Entitic vol] 9.8 fL 9.0 - 12.7 fL [facility] Platelets (Bld) [#/Vol] 193 10*3/uL 140 - 440 10*3/uL [facility] RBC (Bld) [#/Vol] 4.71 10*6/uL 4.40 - 5.90 10*6/uL [facility] WBC (Bld) [#/Vol] 7.9 10*3/uL 3.6 - 10.7 10*3/uL [facility] CBC WITH AUTO DIFFERENTIALon 12-18-2024 Basophils (Bld) [#/Vol] 0.1 10*3/uL Normal 0.0-0.2 [facility] System [facility] Comment on above: Performed By: #### L [id number] ####Dressed Poultry Grader: TAWANDA BLANKENSHIP ([id number])[facility])[address] [place] [address] Basophils/100 WBC (Bld) 0.9 % Normal 0.0-2.0 [facility] Comment on above: Performed By: #### L [id number] ####Dressed Poultry Grader: TAWANDA BLANKENSHIP ([phone])[facility])[address] [place] [address] Eosinophils (Bld) [#/Vol] 0.2 10*3/uL Normal 0.0-0.5 [facility] Comment on above: Performed By: #### L [id number] ####Dressed Poultry Grader: TAWANDA BLANKENSHIP ([id number])[address] Eosinophils/100 WBC (Bld) 2.8 % Normal 0.0-6.0 [facility] Comment on above: Performed By: #### L [id number] ####Dressed Poultry Grader: TAWANDA BLANKENSHIP ([id number])[facility])[address] [place] [address] Erythrocyte distribution width (RBC) [Ratio] 13.5 % Normal 11.5-15.0 [facility] Comment on above: Performed By: #### L [id number] ####Dressed Poultry Grader: TAWANDA BLANKENSHIP ([phone])[address] Hematocrit (Bld) [Volume fraction] 40.7 % Normal 40.0-52.0 [facility] Comment on above: Performed By: #### L [id number] ####Dressed Poultry Grader: TAWANDA BLANKENSHIP ([id number])[facility])[address] [place] [address] Hemoglobin (Bld) [Mass/Vol] 13.9 g/dL Normal 13.0-18.0 [facility] Comment on above: Performed By: #### L [id number] ####Dressed Poultry Grader: TAWANDA BLANKENSHIP ([phone])[facility])[address] [place] [address] IMMATURE GRANS % 0.4 % Normal 0.0-2.0 [facility] Comment on above: Performed By: #### L [id number] ####Dressed Poultry Grader: TAWANDA BLANKENSHIP ([id number])[facility])[address] [place] [address] IMMATURE GRANS ABSOLUTE 0.0 10*3/uL Normal <0.1 [facility] Comment on above: Performed By: #### L [id number] ####Dressed Poultry Grader: TAWANDA BLANKENSHIP ([id number])[facility])[address] [place] [address] Lymphocytes (Bld) [#/Vol] 2.1 10*3/uL Normal 1.0-4.3 [facility] Comment on above: Performed By: #### L [id number] ####Dressed Poultry Grader: TAWANDA BLANKENSHIP ([id number])[address] Lymphocytes/100 WBC (Bld) 27.2 % Normal 15.0-45.0 [facility] Comment on above: Performed By: #### L [id number] ####Dressed Poultry Grader: TAWANDA BLANKENSHIP ([id number])[address] MCH (RBC) [Entitic mass] 29.5 pg Normal 26.0-34.0 [facility] Comment on above: Performed By: #### L [id number] ####Dressed Poultry Grader: TAWANDA BLANKENSHIP ([phone])[address] MCHC 34.2 % Normal 30.5-36.0 [facility] Comment on above: Performed By: #### L [id number] ####Dressed Poultry Grader: TAWANDA BLANKENSHIP ([id number])[address] MCV (RBC) [Entitic vol] 86.4 fL Normal 77.0-99.0 [facility] Comment on above: Performed By: #### L [id number] ####Dressed Poultry Grader: TAWANDA BLANKENSHIP ([id number])[facility] ([facility])[address] [place] [address] Monocytes (Bld) [#/Vol] 0.5 10*3/uL Normal 0.0-0.9 [facility] Comment on above: Performed By: #### L [id number] ####Dressed Poultry Grader: TAWANDA BLANKENSHIP ([id number])[facility] ([facility])[address] [place] [address] Monocytes/100 WBC (Bld) 6.7 % Normal 5.0-13.0 [facility] Comment on above: Performed By: #### L [id number] ####Dressed Poultry Grader: TAWANDA BLANKENSHIP ([phone])[facility] ([facility])[address] [place] [address] NEUTROPHILS ABSOLUTE 4.9 10*3/uL Normal 1.8-7.5 [facility] Comment on above: Performed By: #### L [id number] ####Dressed Poultry Grader: TAWANDA BLANKENSHIP ([id number])[facility] ([facility])[address] [place] [address] Neutrophils/100 WBC (Bld) 62.0 % Normal 38.0-82.0 [facility] Comment on above: Performed By: #### L [id number] ####Dressed Poultry Grader: TAWANDA BLANKENSHIP ([id number])[facility] ([facility])[address] [place] [address] NRBC 0.0 /100 WBCs Normal 0.0-2.0 [facility] Comment on above: Performed By: #### L [id number] ####Dressed Poultry Grader: TAWANDA BLANKENSHIP ([phone])[facility])[address] [place] [address] Platelet mean volume (Bld) [Entitic vol] 9.8 fL Normal 9.0-12.7 [facility] Comment on above: Performed By: #### L [id number] ####Dressed Poultry Grader: TAWANDA BLANKENSHIP ([phone])[facility])[address] [place] [address] Platelets (Bld) [#/Vol] 193 10*3/uL Normal 140-440 [facility] Comment on above: Performed By: #### L [id number] ####Dressed Poultry Grader: TAWANDA BLANKENSHIP ([id number])[facility])[address] [place] [address] RBC (Bld) [#/Vol] 4.71 10*6/uL Normal 4.40-5.90 [facility] Comment on above: Performed By: #### L [id number] ####Dressed Poultry Grader: TAWANDA BLANKENSHIP ([phone])[facility])[address] [place] [address] WBC (Bld) [#/Vol] 7.9 10*3/uL Normal 3.6-10.7 [facility] Comment on above: Performed By: #### L [id number] ####Dressed Poultry Grader: TAWANDA BLANKENSHIP ([id number])[facility])[address] [place] [address] CT HEAD WO IV CONTRASTon CT HEAD WO IV CONTRAST Patient Name: TANNER PORTER : 1955 Exam Date/Time: 12/18/2024 07:07 Procedure: CT HEAD WO IV CONTRAST Ordering Provider: BRAGA ALEKSANDAR Reason For Exam: s/p fall with tiny subdural bleed EXAMINATION: CT HEAD WO IV CONTRAST HISTORY: Status post fall with known tiny parafalcine subdural bleed TECHNIQUE: CT head without contrast. Dose reduction was employed with automated exposure control. COMPARISON: Outside hospital head CT 12/17/2024 at 18:05 RESULT: Acute change/hemorrhage/mass effect: Small, 2 mm thick hyperattenuating subdural hemorrhage on the left aspect of the falx, not significantly changed. No significant associated mass effect. No acute territorial infarct. Chronic change: No apparent parenchymal changes. Atherosclerotic calcifications of the carotid siphons. Parenchyma: There is no significant volume loss. Ventricles: Normal caliber and morphology. Other: The calvarium, skull base, imaged paranasal sinuses, mastoids, orbits and extracranial soft tissues are unremarkable. IMPRESSION: Small acute left parafalcine subdural hemorrhage, not significantly changed. No significant mass effect. CRITICAL TEST RESULT COMMUNICATION: Notification of these findings was made to JAGJIT BRAGA via [employer] on 12/18/2024 8:05 AM EST. Receipt was confirmed. Report Dictated on Electronically Signed By: Anand Verduzco MD Electronically Signed Date/Time: 12/18/2024 8:09 AM EST [facility] CT Head WO contraston 2024 Small acute left parafalcine subdural hemorrhage, not significantly changed. No significant mass effect. CRITICAL TEST RESULT COMMUNICATION: Notification of these findings was made to JAGJIT BRAGA via [employer] on 12/18/2024 8:05 AM EST. Receipt was confirmed. Report Dictated on Electronically Signed By: Anand Verduzco MD Electronically Signed Date/Time: 12/18/2024 8:09 AM EST [employer] Patient Name: TANNER HOWELL : 1955 Exam Date/Time: 12/18/2024 07:07 Procedure: CT HEAD WO IV CONTRAST Ordering Provider: BRAGA ALEKSANDAR Reason For Exam: s/p fall with tiny subdural bleed EXAMINATION: CT HEAD WO IV CONTRAST HISTORY: Status post fall with known tiny parafalcine subdural bleed TECHNIQUE: CT head without contrast. Dose reduction was employed with automated exposure control. COMPARISON: Outside hospital head CT 12/17/2024 at 18:05 RESULT: Acute change/hemorrhage/mass effect: Small, 2 mm thick hyperattenuating subdural hemorrhage on the left aspect of the falx, not significantly changed. No significant associated mass effect. No acute territorial infarct. Chronic change: No apparent parenchymal changes. Atherosclerotic calcifications of the carotid siphons. Parenchyma: There is no significant volume loss. Ventricles: Normal caliber and morphology. Other: The calvarium, skull base, imaged paranasal sinuses, mastoids, orbits and extracranial soft tissues are unremarkable. [facility] Anand Verduzco MD - 12/18/2024 Patient Name: TANNER PORTER : 1955 Exam Date/Time: 12/18/2024 07:07 Procedure: CT HEAD WO IV CONTRAST Ordering Provider: BRAGA ALEKSANDAR Reason For Exam: s/p fall with tiny subdural bleed EXAMINATION: CT HEAD WO IV CONTRAST HISTORY: Status post fall with known tiny parafalcine subdural bleed TECHNIQUE: CT head without contrast. Dose reduction was employed with automated exposure control. COMPARISON: Outside hospital head CT 12/17/2024 at 18:05 RESULT: Acute change/hemorrhage/mass effect: Small, 2 mm thick hyperattenuating subdural hemorrhage on the left aspect of the falx, not significantly changed. No significant associated mass effect. No acute territorial infarct. Chronic change: No apparent parenchymal changes. Atherosclerotic calcifications of the carotid siphons. Parenchyma: There is no significant volume loss. Ventricles: Normal caliber and morphology. Other: The calvarium, skull base, imaged paranasal sinuses, mastoids, orbits and extracranial soft tissues are unremarkable. IMPRESSION: Small acute left parafalcine subdural hemorrhage, not significantly changed. No significant mass effect. CRITICAL TEST RESULT COMMUNICATION: Notification of these findings was made to [employer] via [employer] Chat on 12/18/2024 8:05 AM EST. Receipt was confirmed. Report Dictated on Electronically Signed By: Anand Verduzco MD Electronically Signed Date/Time: 12/18/2024 8:09 AM EST [facility] Study observation (narrative) [employer] CT Head WO contrastOrdered B y: Anand Verduzco on 12-18-2024 [employer] Work Phone: Consulton 12-18-2024 Consult NEUROSURGERY CONSULT NOTE Patient Name: Tanner Porter Patient : 1955 PCP: YASH DONALD MD History of Present Illness: 69 y/o M who presents after mechanical fall, found to have a small acute left parafalcine subdural hemorrhage. No LOC. No seizure-like activity. No AC/ASA. Past Medical History: Past Medical History: Diagnosis Date Arthritis Cancer (CMS/HCC) (HCC) colon Hyperlipidemia Hypertension Other disorders of kidney and ureter in diseases classified elsewhere Psychiatric problem Thyroid disease Past Surgical History: Past Surgical History: Procedure Laterality Date COLON SURGERY PROSTATE SURGERY seeds Home Medications: Prior to Admission medications Medication Sig Start Date End Date Taking? Authorizing Provider gabapentin (Neurontin) 300 MG capsule Take 300 mg by mouth 2 times daily. Yes Historical Provider, levothyroxine (Synthroid, Levoxyl) 25 MCG tablet Take 25 mcg by mouth every morning (before breakfast). Yes Historical Provider, losartan (Cozaar) 25 MG tablet Take 25 mg by mouth 2 times daily. Yes Historical Provider, mirabegron ER (Myrbetriq) 25 MG 24 hr tablet Take 25 mg by mouth daily. 05/21/24 Yes Historical Provider, Multiple Vitamins-Minerals (One-A-Day Mens 50+ Advantage) tablet Take 1 tablet by mouth daily. Yes Historical Provider, naproxen (EC Naprosyn) 500 MG EC tablet Take 500 mg by mouth 2 times daily as needed for mild pain (1-3). Do not crush, chew, or split. Yes Historical Provider, pravastatin (Pravachol) 40 MG tablet Take 40 mg by mouth Nightly. Yes Historical Provider, buprenorphine-naloxone (Suboxone) 8-[address] 0.25 tablets under the tongue as needed (4 times daily as needed). Patient not taking: Reported on 12/17/2024 02/05/24 Historical Provider, Allergies: Atenolol, Amlodipine, and Beta adrenergic blockers Social History: TOBACCO: reports that he has never smoked. He does not have any smokeless tobacco history on file. ETOH: reports no history of alcohol use. RECREATIONAL DRUG USE: Social History Substance and Sexual Activity Drug Use No Types: Opiates Family History: Family History Problem Relation Name Age of Onset No Known Problems Father No Known Problems Mother Review of Systems: Review of Systems 12-point ROS completed and negative unless otherwise documented Physical Examination: Vitals: 12/18/24 1023 BP: 125/65 Pulse: 63 Resp: 15 Temp: 36.6 ?C (97.8 ?F) SpO2: 97% Physical Exam Neurological Exam Awake, alert, oriented x3 PERRL, FS, TM Speech fluent BUE 5/5 No drift BLE 03/31 SILT Results Labs: Last 24hrs Recent Results (from the past 24 hours) CBC auto differential Collection Time: 12/18/24 12:20 AM Result Value Ref Range Auto WBC 7.9 3.6 - 10.7 10*3/uL RBC 4.71 4.40 - 5.90 10*6/uL Hemoglobin 13.9 13.0 - 18.0 g/dL Hematocrit 40.7 40.0 - 52.0 % MCV 86.4 77.0 - 99.0 fL MCH 29.5 26.0 - 34.0 pg MCHC 34.2 30.5 - 36.0 % RDW 13.5 11.5 - 15.0 % Platelets 193 140 - 440 10*3/uL MPV 9.8 9.0 - 12.7 fL nRBC 0.0 0.0 - 2.0 /100 WBCs Neutrophils Relative 62.0 38.0 - 82.0 % Lymphocytes Relative 27.2 15.0 - 45.0 % Monocytes Relative 6.7 5.0 - 13.0 % Eosinophils Relative 2.8 0.0 - 6.0 % Basophils Relative 0.9 0.0 - 2.0 % Immature Grans % 0.4 0.0 - 2.0 % Neutrophils Absolute 4.9 1.8 - 7.5 10*3/uL Lymphocytes Absolute 2.1 1.0 - 4.3 10*3/uL Monocytes Absolute 0.5 0.0 - 0.9 10*3/uL Eosinophils Absolute 0.2 0.0 - 0.5 10*3/uL Basophils Absolute 0.1 0.0 - 0.2 10*3/uL Immature Grans Absolute 0.0 <0.1 10*3/uL Basic metabolic panel Collection Time: 12/18/24 12:20 AM Result Value Ref Range SODIUM 139 136 - 145 mmol/L POTASSIUM 3.5 3.5 - 5.1 mmol/L CHLORIDE 112 (H) 98 - 107 mmol/L CARBON DIOXIDE 21 (L) 23 - 31 mmol/L UREA NITROGEN 16 9 - 23 mg/dL CREATININE 0.82 0.72 - 1.25 mg/dL GLUCOSE 108 82 - 115 mg/dL CALCIUM 8.7 (L) 8.8 - 10.0 mg/dL ANION GAP 6 3 - 13 mmol/L eGFR >90.0 >60.0 mL/min/1.73m*2 Magnesium Collection Time: 12/18/24 12:20 AM Result Value Ref Range MAGNESIUM 2.0 1.6 - 2.6 mg/dL Radiology Personal review: IMPRESSION: Small acute left parafalcine subdural hemorrhage, not significantly changed. No significant mass effect. ASSESSMENT / PLAN : Overall, Tanner suffered a significant TBI from a mechanical fall, sustaining a small acute left parafalcine SDH. His neurological exam is reassuring as he remains non-focal. Repeated CT brain obtained this AM confirms stability when compared to his prior. At this point, no indications for neurosurgerical intervention. No seizure prophylaxis necessary. Patient is cleared for discharge from a neurosurgical standpoint. Please have Tanner follow up my team in clinic at 2 weeks after discharge with a repeat CT brain non contrast for further evaluation and assessment. Anders Robertson MD [facility] Neurosurgery (more content not included)... Normal [facility] Consult [facility] Geriatric Medicine Inpatient Consult Service Admission Date: 12/17/2024 Admission Status: INPATIENT Chief Complaint: neck soreness Reason for Appointment Geriatrics consulted for 'Fall Assessment & Plan Principal Problem: Subdural hematoma (HCC) Fall -Multiple risk factors including neuropathy, decreased vision, chronic pain, and possible medication side effect -Continue PT/OT as able while inpatient -Vitamin D recommend checking outpatient -Check orthostatic vital signs as able -Medications with associated fall risk include: PRN Suboxone, Gabapentin, losartan Acute pain due to trauma --Agree with scheduled acetaminophen 1g TID, recommend checking LFT's --continue home dose Suboxone PRN-per patient he is weaning off medication by doctor until fall had not taken in 12 days. --continue Robaxin 500mg TID-monitor cognition closely-discussed with patient --takes PRN naprosyn at home-discussed to avoid using NSAID products due to bleeding risk, risk for BEV and CV risk. Patient verbalized understanding. No results found for: ALT, AST, GGT, ALKPHOS, BILITOT -Optimize nonpharmacologic pain treatment modalities. -Ensure that bowel regimen is in place while on narcotic regimen. At risk for delirium --Risk factors: head trauma, pain, advanced age, and high risk medications --Encourage PO intake, time up in chair, family visits, supervised ambulation, and sleep hygiene --If agitated, assess for and consider treating for pain --QTc= NA --No antipsychotic unless patient is danger to self/others/treatment --Monitor for constipation/urinary retention - last BM this AM per patient --Possible medication contributions: PRN Dilaudid-has not used, now discontinued PRN oxycodone-has not used I spent total time of 50 minutes face to face with the patient and/or family discussing the diagnosis and importance of compliance with the treatment plan as well as documenting on the day of the visit. In addition, that total time includes the following: -Reviewing previous notes, -Reviewing labs, -Obtaining and/or reviewing separately obtained history, -Counseling/educating the patient/family/caregiver, -Documenting clinical information in the patients electronic record, and -Performing a medically appropriate exam and/or evaluation Subjective: HPI 69 y.o. year-old male with a past medical history of arthritis, colon cancer,HLD, HTN, psychiatric problem, thyroid disease presented to [facility] on 12/17/24 after he fell onto concrete on 12/14/24. The incident happened next to his driveway at night. When the event happened the patient was grabbing something from the garage. He went to [place] ED, CT of head showed a tiny subdural hematoma and then transferred to [facility] ED on 12/17/24. Diagnosed with para-falcine SDH. Patient today reports he did not sleep well last night as he was woken up through the night to be assessed. He reports he had a MONTELONGO this AM, Tylenol helped. Reports his neck is still sore, but improved. Reports his last BM was this AM. # of falls in the past 3 months: 1 # of falls in the past year: 1 History of falls: no Living situation: home with and son Assistive device: none Dizziness: no Pain: chronic pain from cancer, being weaned off suboxone, takes gabapentin as needed Incontinence/urgency (bowel, bladder, nocturia): yes, urine chronic Sleep (including use of medications/OTC for sleep): no Alcohol/drugs: no Mood: okay Memory: no concerns Numbness: to fingers and toes, chronic and worse with cold weather Vision: glasses to watch TV Hearing: no DM: no Weight/appetite: no, would like to lose weight Bone health (previous fractures): none Exercise/recent therapy: stays active, always moving Discussed with nurse, no agitation or behaviors noted. Was a little anxious this AM. Cooperative with medications. Progress notes reviewed: -Neurosurgery consulted, repeat CTH stable. No neurosurgical intervention. No seizure prophylaxis necessary PRN meds in past 24 hours: Suboxone times 1 on 12/18 Labs: 12/18-Sodium 139, potassium 3.5, BUN 16, creatinine 0/82 12/18-WBC 7.9, Hgb 13.9, platelets 193 Conversation with patient: -lives home with and son -independent in all ADL/IALDs -slipped on ice in drive way and fell, this is patient's first fall -does not use ETOH, tobacco products or recreational drugs -Is being weaned off Suboxone-was started for his cancer pain -recently restarted taking his gabapentin due to neuropathy pain in his hands and feet-chronic and worse in cold weather. Advance Care Planning Healthcare Power of Airline Mechanic: No Financial Power of Airline Mechanic: No Living Will:No Code Status: Full Code Allergies Allergen Reactions Atenolol Amlodipine Other Beta Adrenergic Blockers Other Current Facility-Administered Medications: acetaminophen (Tylenol) tablet 1,000 mg, 1,000 mg, Oral, q8h, Dm (more content not included)... Normal [facility] Laboratory - Chemistry and C hemistry - challengeon 12-18-2024 Magnesium [Mass/Vol] 2 mg/dL 1.6 - 2 .6 mg/dL [facility] MAGNESIUMon 12-18-2024 Magnesium [Mass/Vol] 2.0 mg/dL Normal 1.6-2.6 [facility] Comment on above: Result Comment: MAIKOL Corbett COMMENTS: Higher values can be expected in females during menses. Performed By: #### L AB103, LAB15 ####Dressed Poultry Grader: TAWANDA BLANKENSHIP ([phone])[facility] ([address] Magnesium [Mass/Vol]on 12-18 Interpretation and review of laboratory results Normal [facility] Higher values can be expected in females during menses. [facility] Nursing Noteon 12-18-2024 Nursing Note Patient off of floor with Transport going to CT Scan Normal [facility] Progress Noteon 12-18-2024 Progress Note ----- ----- Attestation signed by Luis Sharpe MD at 12/18/2024 1:43 PM ATTENDING ADDENDUM Active Diagnoses/Problems this Admission: Patient Active Problem List Diagnosis Benzodiazepine dependence (HCC) Opioid dependence with current use (HCC) Subdural hematoma (HCC) I have personally performed a face to face diagnostic evaluation on this patient. I have reviewed and agree with the care plan as documented above by my ONLINE MARKETING ANALYST/IBRAHIMA. I personally discussed the review of systems and interviewed the patient along with performing a physical examination. In addition, I discussed the patient's condition and treatment options with him/her when possible. All of the patient's questions were answered and family updated when appropriate and possible. I performed a physical exam and ROS on the same date of service as above. My findings agree with the above note except for any details corrected below. Please note that the plan below is highlights/garland components and corrections; see the main ABIODUN note for the full Assessment/Plan. Injuries/problem list: -para-falcine SDH Operations/Procedures: -none Management/Plan: -I evaluated patient on 12/18/24 -Chief Compliant: fall, SDH -admitted last night, fall was two days prior -repeat CT head shows SDH is stable -no intervention per Neurosurgery -no AED -home meds -regular diet -PT recs are home with assist -anticipate discharge home today -discussed return precautions and importance of outpatient follow-up Total Care Time (combined between KATEY/IBRAHIMA and myself) throughout the day today was >= 30 minutes (including chart/data review/analysis, care coordination, and ttth-za-ngor encounter), and was spent discussing/counseling the patient/family regarding the care plan for Tanner Porter. I examined the patient independently. I reviewed relevant data myself and may have also done so in the context of team rounds. A full chart review was performed. I personally spent greater than 30 minutes involved with discharge planning, education, and coordination in arranging this patient's discharge today. Luis Sharpe MD, FACS Trauma, Surgical Critical Care, & Acute Care Surgery Department of Surgery [facility] Pager: [phone] ~~~~~~~~~~~~~~~~~~~~~~~~~ ~~~~~~~~~~~~~~~~~~~~~~~~~ ~~~~~~~~~~~ This note may have been dictated using [employer] Medical Practice Edition 2.6 and/or [employer] Voice Recognition Feature. The document was proofread; however, unrecognized voice recognition publishing specialist errors may be present. ----- Daily Trauma Progress Note ABIODUN 12/18/2024 6:48 AM Admit Date: 12/17/2024 Post Trauma Day 4/ PHD 1 Fall Mechanical HISTORY OF TRAUMATIC EVENT: 69 y.o. male status post fall onto concrete. The incident happened around 12/14/[address] at night. When the event happened the patient was grabbing something from the garage. INJURIES: Tiny acute parafalcine subdural hematoma PROCEDURES: None INCIDENTAL FINDINGS: None CHIEF COMPLAINT: Neck soreness PREVIOUS 24 HOUR EVENTS: Patient presented to [facility] with complains of fall and neck soreness Consults: Neurosurgery MEDICATIONS: Current Facility-Administered Medications: acetaminophen (Tylenol) tablet 1,000 mg, 1,000 mg, Oral, q8h, Jagjit Braga MD buprenorphine-naloxone (Suboxone) 8-2 MG per sublingual film 0.25 Film, 0.25 Film, SubLINGual, 4x daily PRN, Juan J Black MD gabapentin (Neurontin) capsule 300 mg, 300 mg, Oral, TID, Juan J Black MD, 300 mg at 12/18/24 0011 hydrALAZINE (Apresoline) injection 10 mg, 10 mg, IntraVENous, q4h PRN, Juan J Black MD labetalol (Normodyne,Trandate) injection 10 mg, 10 mg, IntraVENous, q4h PRN, Juan J Black MD levothyroxine (Synthroid, Levoxyl) tablet 25 mcg, 25 mcg, Oral, qAM AC, Juan J Black MD, 25 mcg at 12/18/24 0514 losartan (Cozaar) tablet 50 mg, 50 mg, Oral, BID, Juan J Black MD methocarbamol (Robaxin) tablet 500 mg, 500 mg, Oral, 3 times per day, Juan J Black MD, 500 mg at 12/18/24 0514 naloxone (Narcan) injection 0.4 mg, 0.4 mg, IntraVENous, q5 min PRN, Juan J Black MD ondansetron ODT (Zofran-ODT) disintegrating tablet 4 mg, 4 mg, Oral, q8h PRN OR ondansetron (Zofran) injection 4 mg, 4 mg, IntraVENous, q6h PRN, Juan J Black MD oxyCODONE (Roxicodone) immediate release tablet 5 mg, 5 mg, Oral, q4h PRN OR oxyCODONE (Roxicodone) immediate release tablet 10 mg, 10 mg, Oral, q4h PRN, Juan J Black MD pravastatin (Pravachol) tablet 40 mg, 40 mg, Oral, Nightly, Juan J Black MD, 40 mg at 12/18/24 0011 sodium chloride 0.9 % infusion, 5-250 mL/hr, IntraVENous, PRN, Juan J Black MD sodium chloride 0.9% (NS) flush 5-40 mL, 5-40 mL, IntraVENous, q12h, Juan J Black MD, 10 mL at 12/18/24 0012 (more content not included)... [facility] 30on 12-17-2024 30 Problem: Pain - Adul t Goal: Verbalizes/displays adequate comfort level or baseline comfort level Outcome: Progressing Problem: Safety - Adult Goal: Free from fall injury Outcome: Progressing Problem: Discharge Planning Goal: Discharge to home or other facility with appropriate resources Outcome: Progressing Problem: Potential for Falls Goal: I will remain free of falls Outcome: Progressing Normal [facility] Absolute neutrophil countOrd ered By: Tanner cMduffie on 12-17-2024 Neutrophils (Bld) [#/Vol] 2.4 10*3/uL 2.0-7.7 [facility] Basic Metabolic Profile (BMP )on 12-17-2024 BUN/CRE 18.1 RATIO Normal 10-20 [facility] Comment on above: Performed By: #### L 506.1001, L501.9520, L501.9910, L500.4050, L100.0100 #### [facility] [address] [place], [address] CA,Total 9.4 mg/dL Normal 8.5-10.1 [facility] Comment on above: Performed By: #### L 506.1001, L501.9520, L501.9910, L500.4050, L100.0100 #### [facility] [address] [place], [address] Chloride [Moles/Vol] 108 mmol/L High 98-107 [facility] Comment on above: Performed By: #### L 506.1001, L501.9520, L501.9910, L500.4050, L100.0100 #### [facility] [address] [place], [address] CO2 [Moles/Vol] 26.0 mmol/L Normal 21.0-32.0 [facility] Comment on above: Performed By: #### L 506.1001, L501.9520, L501.9910, L500.4050, L100.0100 #### [facility] [address] [place], [address] Creatinine [Mass/Vol] 1.05 mg/dL Normal 0.70-1.30 [facility] Comment on above: Result Comment: The validity of the calculated GFR GFRAA in patients over 70 years has not been determined. Clinical correlation is essential. Performed By: #### L 506.1001, L501.9520, L501.9910, L500.4050, L100.0100 #### [facility] [address] [place], [address] ECRCL 88.58 ml/min Normal [facility] Comment on above: Performed By: #### L 506.1001, L501.9520, L501.9910, L500.4050, L100.0100 #### [facility] [address] [place], [address] EST GFR - AA 91 mL/min Normal >60 [facility] Comment on above: Result Comment: Afri can Ethiopian GFR Calc Performed By: #### L 506.1001, L501.9520, L501.9910, L500.4050, L100.0100 #### [facility] [address] [place], [address] GAP 6 Normal 5-15 [facility] Comment on above: Performed By: #### L 506.1001, L501.9520, L501.9910, L500.4050, L100.0100 #### [facility] [address] [place], [address] GFR/1.73 sq M.predicted among non-blacks MDRD (S/P/Bld) [Vol rate/Area] 75 mL/min/{1.73_m2} Normal >60 [facility] Comment on above: Result Comment: Non- GFR Calc Performed By: #### L 506.1001, L501.9520, L501.9910, L500.4050, L100.0100 #### [facility] [address] [place], [address] Glucose [Mass/Vol] 98 mg/dL Normal 74-106 [facility] Comment on above: Performed By: #### L 506.1001, L501.9520, L501.9910, L500.4050, L100.0100 #### [facility] [address] [place], [address] Potassium [Moles/Vol] 4.1 mmol/L Normal 3.5-5.1 [facility] Comment on above: Performed By: #### L 506.1001, L501.9520, L501.9910, L500.4050, L100.0100 #### [facility] [address] [place], [address] Sodium [Moles/Vol] 140 mmol/L Normal 136-145 [facility] Comment on above: Performed By: #### L 506.1001, L501.9520, L501.9910, L500.4050, L100.0100 #### [facility] [address] [place], [address] Urea nitrogen [Mass/Vol] 19 mg/dL High 7-18 [facility] Comment on above: Performed By: #### L 506.1001, L501.9520, L501.9910, L500.4050, L100.0100 #### [facility] [address] [place], [address] Basophil percentageOrdered B y: Tanner Mcduffie on 12-17-2024 Basophils/100 WBC (Bld) 1.3 % High 0-1 [facility] Blood urea nitrogen (BUN)/cr eatinine ratioOrdered By: Tanner Mcduffie on 12-17-2024 Urea nitrogen/Creatinine [Mass ratio] 18.1 mg/mg 10-20 [facility] Brain/Head without Contrasto n 12-17-2024 Brain/Head without Contrast [facility] Imaging Services [address] [place] [address] Brain/Head without Contrast MR#: [id number] Acct: [id number] Name: TANNER PORTER Rep #: [id number] : 1955 M 69 From: José Miguel Bojorquez MD PCP: Dr. Edwin Donald MD Status: REG ER Study: Brain/Head without Contrast Date of Exam: 11/28 12/21 Exam# [id number] Ordering Dr: Tanner Mcduffie DO ADDENDUM by Dr. José Miguel Bojorquez MD on 12/17/24 at 1836 [id number] STUDY: CT BRAIN WITHOUT CONTRAST REASON FOR EXAM: Male, 69 years old. trauma RADIATION DOSAGE (If Supplied By Facility): CTDIvol = ( 44.99 ) mGy, DLP = ( 812.98 ) mGycm TECHNIQUE: Transaxial CT imaging of the brain was performed without administration of intravenous contrast material. Individualized dose optimization techniques were used for this CT. COMPARISON: No relevant priors. FINDINGS: Normal soft tissue structures. Normal calvarium. Calcific plaquing cavernous carotid Normal size ventricles and extra-axial spaces for the patient''s age. Normal white matter tracts of the cerebral hemispheres. Normal basal ganglia and thalami. Normal brainstem. Normal cerebellum. There appears to be very subtle tiny acute parafalcine subdural hemorrhage best visualized on image 32-33/44 on sequence 2. There are no findings of an acute ischemic infarction. Minor mucosal thickening of left maxillary and bilateral ethmoid sinuses 12/17/24 1836 Date cc: Dr. Tanner Mcduffie DO; Dr. Edwin Donald MD * Signed ADDENDUM by Dr. José Miguel Bojorquez MD on 12/17/[address]/Brain/Head without Contrast IMPRESSION: Tiny acute parafalcine subdural hematoma N.B. : The above Results were Read Back by José Miguel Bojorquez MD to Tanner Mcduffie DO, and understanding confirmed on 12/17/2024 18:48:43 (ET). Electronically Signed: José Miguel Bojorquez MD at 18:36 EST , 12/17/24 185 Date cc: Dr. Tanner Mcduffie DO; Dr. Edwin Donald MD * Signed We are attempting to reach an attending provider to discuss findings. An addendum with communication details will be sent when the communication is complete. [id number] STUDY: CT BRAIN WITHOUT CONTRAST REASON FOR EXAM: Male, 69 years old. trauma RADIATION DOSAGE (If Supplied By Facility): CTDIvol = ( 44.99 ) mGy, DLP = ( 812.98 ) mGycm TECHNIQUE: Transaxial CT imaging of the brain was performed without administration of intravenous contrast material. Individualized dose optimization techniques were used for this CT. COMPARISON: No relevant priors. FINDINGS: Normal soft tissue structures. Normal calvarium. Calcific plaquing cavernous carotid Normal size ventricles and extra-axial spaces for the patient''s age. Normal white matter tracts of the cerebral hemispheres. Normal basal ganglia and thalami. Normal brainstem. Normal cerebellum. There appears to be very subtle tiny acute parafalcine subdural hemorrhage best visualized on image 32-33/44 on sequence 2. There are no findings of an acute ischemic infarction. Minor mucosal thickening of left maxillary and bilateral ethmoid sinuses CT/Brain/Head without Contrast IMPRESSION: Tiny acute parafalcine subdural hematoma Electronically Signed: José Miguel Bojorquez MD at 18:36 EST , CC: Dr. Tanner Mcduffie DO; Dr. Edwin Donald MD Accounting Software Specialist: Signed Normal [facility] CBC W/Diff, Automatedon 11-28 Absolute Lymph 2.73 X10 3/uL Normal 0.83-4.51 [facility] Comment on above: Performed By: #### L 300.4310, L300.3900, L500.2500, L100.0100 #### [facility] [address] [place], [address] Absolute Neut 2.4 X10 3/uL Normal 2.0-7.7 [facility] Comment on above: Performed By: #### L 300.4310, L300.3900, L500.2500, L100.0100 #### [facility] [address] [place], [address] Basophils/100 WBC (Bld) 1.3 % High 0-1 [facility] Comment on above: Performed By: #### L 300.4310, L300.3900, L500.2500, L100.0100 #### [facility] [address] [place], [address] Eosinophils/100 WBC (Bld) 5.2 % High 0-5 [facility] Comment on above: Performed By: #### L 300.4310, L300.3900, L500.2500, L100.0100 #### [facility] [address] [place], [address] Erythrocyte distribution width (RBC) [Ratio] 13.6 % Normal 11.6-14.6 [facility] Comment on above: Performed By: #### L 300.4310, L300.3900, L500.2500, L100.0100 #### [facility] [address] [place], [address] Hematocrit (Bld) [Volume fraction] 45.6 % Normal 40-54 [facility] Comment on above: Performed By: #### L 300.4310, L300.3900, L500.2500, L100.0100 #### [facility] [address] [place], [address] Hemoglobin (Bld) [Mass/Vol] 15.0 g/dL Normal 13.0-16.5 [facility] Comment on above: Performed By: #### L 300.4310, L300.3900, L500.2500, L100.0100 #### [facility] [address] [place], [address] IG% 0.200 Normal 0.0-0.9 [facility] Comment on above: Result Comment: IG% - Immature Granulocytes (promyelocytes, myelocytes and metamyelocytes) > 1% indicates that a LEFT SHIFT is Present. Performed By: #### L 300.4310, L300.3900, L500.2500, L100.0100 #### [facility] [address] [place], [address] Lymphocytes/100 WBC (Bld) 45.4 % High 19-41 [facility] Comment on above: Performed By: #### L 300.4310, L300.3900, L500.2500, L100.0100 #### [facility] [address] [place], [address] MCH (RBC) [Entitic mass] 28.9 pg Normal 27.0-32.0 [facility] Comment on above: Performed By: #### L 300.4310, L300.3900, L500.2500, L100.0100 #### [facility] [address] [place], [address] MCHC (RBC) [Mass/Vol] 32.9 g/dL Normal 32-36 [facility] Comment on above: Performed By: #### L 300.4310, L300.3900, L500.2500, L100.0100 #### [facility] [address] [place], [address] MCV (RBC) [Entitic vol] 87.9 fL Normal 80-94 [facility] Comment on above: Performed By: #### L 300.4310, L300.3900, L500.2500, L100.0100 #### [facility] [address] [place], [address] Monocytes/100 WBC (Bld) 7.7 % Normal 0-10 [facility] Comment on above: Performed By: #### L 300.4310, L300.3900, L500.2500, L100.0100 #### [facility] [address] [place], [address] Neutrophils/100 WBC (Bld) 40.2 % Low 47-70 [facility] Comment on above: Performed By: #### L 300.4310, L300.3900, L500.2500, L100.0100 #### [facility] [address] [place], [address] Nucleated RBC (Bld) [#/Vol] 0 10*3/uL Normal 0-5 [facility] Comment on above: Performed By: #### L 300.4310, L300.3900, L500.2500, L100.0100 #### [facility] [address] [place], [address] Platelet mean volume (Bld) [Entitic vol] 9.9 fL Normal 6.2-12.0 [facility] Comment on above: Performed By: #### L 300.4310, L300.3900, L500.2500, L100.0100 #### [facility] [address] [place], [address] Platelets (Bld) [#/Vol] 210 10*3/uL Normal 150-450 [facility] Comment on above: Performed By: #### L 300.4310, L300.3900, L500.2500, L100.0100 #### [facility] [address] [place], [address] RBC (Bld) [#/Vol] 5.19 10*6/uL Normal 4.6-6.2 [facility] Comment on above: Performed By: #### L 300.4310, L300.3900, L500.2500, L100.0100 #### [facility] [address] [place], [address] RDW SD 43.8 fl Normal 35.1-43.9 [facility] Comment on above: Performed By: #### L 300.4310, L300.3900, L500.2500, L100.0100 #### [facility] [address] [place], [address] WBC (Bld) [#/Vol] 6.0 10*3/uL Normal 4.4-11.0 [facility] Comment on above: Performed By: #### L 300.4310, L300.3900, L500.2500, L100.0100 #### [facility] [address] [place], [address] Carbon dioxide measurementOr dered By: Tanner Mcduffie on 12-17-2024 CO2 [Moles/Vol] 26.0 mmol/L 21.0-32.0 [facility] Chloride measurementOrdered By: Tanner Mcduffie on 12-17-2024 Chloride [Moles/Vol] 108 mmol/L High 98-107 [facility] Emergency Department Summary on 12-17-2024 Emergency Department Summary [facility] Medical Records Department [address] [place] [address] Emergency Department Summary 12/17/24 MR#: [id number] Acct: [id number] Name: TANNER PORTER Rep #: [id number] : 1955 69 From: Tanner Mcduffie DO PCP: Dr. Edwin Donald MD Status:DEP ER Location: ED HPI History of Present Illness Chief Complaint: Other, Pain/Inj Informant: patient Narrative Narrative: 69-year-old male presenting to the emergency room with neck pain. Patient states that on Monday evening he slipped and fell on the ice striking the back of his head on the ground. He states after about 30 minutes he was feeling okay but has progressively developed a pain diffusely in his neck starting posteriorly radiating around the sides to the front that is worse with movement. He does note a slight occipital headache. He denies any arm or leg symptoms. He is not on any anticoagulants. He is worried about cervical spine fracture. [facility] Medical History Former smoker Pulmonary embolism Migraines Excessive daytime sleepiness Peripheral neuropathy Generalized weakness Degenerative cervical disc Hyperglycemia Hypophosphatemia Hypokalemia Vitamin D deficiency Myalgia Urinary frequency Vertigo Pulmonary embolism Hyperlipidemia Anxiety Prostate cancer Colon cancer HTN (hypertension) Home Medications ???Medication ???Instructions ???Recorded ???Last Taken ???Type pravastatin 40 mg tablet 40 mg PO QHS 01/16/18 Unknown History polyethylene glycol 3350 17 17 g PO DAILY 03/29/19 Unknown History gram/dose oral powder multivitamin 1 tab PO DAILY 04/02/19 Unknown History gabapentin 300 mg capsule 300 mg PO BIDCM PRN numbness and 04/22/20 Unknown History tingling losartan 25 mg tablet 50 mg PO BID 04/06/24 Unknown History levothyroxine 25 mcg tablet 25 mcg PO DAILY 04/07/24 Unknown History Allergy/AdvReac Type Severity Reaction Status Date / Time amlodipine Allergy Unknown Unknown Verified 12/17/24 17:17 Family History Brother Heart disease Myocardial infarction Surgical History s/p port placement History of colon resection Social History Smoking Status: Former smoker alcohol intake: never ROS ROS ED Constitutional Constitutional ED: Denies chills, fever(s) or weight loss Eyes Eyes: Denies change in vision or diplopia ENT ENT ED: Denies ear pain, rhinorrhea or sore throat Cardiovascular Cardiovascular: Denies chest pain, orthopnea, palpitations or racing heartbeat Respiratory/Chest Respiratory/Chest: Denies cough, dyspnea or orthopnea Gastrointestinal Gastrointestinal: Denies abdominal pain, diarrhea, nausea or vomiting Genitourinary Genitourinary ED: Denies dysuria, hematuria or urinary frequency Musculoskeletal Musculoskeletal: Reports neck pain; Denies arthralgias, back pain or myalgias Integumentary Denies abscess or rash Neurologic Neurologic: Reports headache(s); Denies paresthesias or weakness Psychiatric Psychiatric: Denies anxiety, depression, suicidal ideation or suicidal thoughts Endocrine Endocrinology: Denies polydipsia, polyphagia or polyuria Allergic/Immunologic Allergic/Immunologic ED: Denies mouth swelling, tongue swelling or urticaria EXAM Physical Exam Const Vital Signs: 12/17/24 17:17 12/17/24 18:36 Temperature 99 F Temperature Source Oral Pulse Rate 82 Respiratory Rate 16 Respiratory Effort Normal Respiratory Pattern Normal Blood Pressure 178/105 H Blood Pressure Mean 129 Pulse Ox 100 Oxygen Delivery Method Room Air Positive well nourished and well developed General Appearance ED: well developed HEENT Reports normocephalic, head/scalp atraumatic and moist mucous membranes Eyes PERRL and EOMs intact bilaterally Neck full ROM, no lymphadenopathy, supple and no JVD Neck Narrative: Patient with soft tissue tenderness circumferentially of the neck. I do not appreciate any swelling ecchymosis. Resp normal respiratory effort and clear to auscultation bilaterally Cardio regular rate, regular rhythm and no murmurs GI normal to inspection, nondistended, normoactive bowel sounds and non-tender Palpation: soft Back/Spine no CVA tenderness and normal ROM Extremity normal to inspection General Extremety ED: Negative for edema General Extremity: Negative for edema Neuro oriented x3, CN's II-XII intact bilaterally, moves all extremities, no focal motor deficits and no sensory deficits noted Neuro Narrative: Normal strength and sensation of the upper extremities Sensorium / Orientation: alert Motor Exam: (more content not included)... Normal [facility] Eosinophil percentageOrdered By: Tanner Mcduffie on 12-17-2024 Eosinophils/100 WBC (Bld) 5.2 % High 0-5 [facility] Erythrocyte distribution wid th ratioOrdered By: Tanner Mcduffie on 12-17-2024 Erythrocyte distribution width (RBC) [Ratio] 13.6 % 11.6-14.6 [facility] Erythrocyte distribution wid th standard deviationOrdered By: Tanner Mcduffie on 12-17-2024 Erythrocyte distribution width (RBC) [Entitic vol] 43.8 fL 35.1-43.9 [facility] Estimated glomerular filtrat ion rate (GFR) AmericanOrdered By: Tanner Mcduffie on 12-17-2024 Estimated GFR (MDRD) Amer 91 mL/min >60 [facility] Comment on above: GFR Calc Estimation of creatinine tanja aranceOrdered By: Tanner Mcduffie on 12-17-2024 Estimated Creatinine Clearance Calc 88.58 ml/min [facility] Glomerular filtration rate ( GFR) estimationOrdered By: Tanner Mcduffie on 12-17-2024 Estimated GFR (MDRD) Non-Af Amer 75 mL/min >60 [facility] Comment on above: Non- GFR Calc Glucose measurementOrdered B y: Tanner Mcduffie on 12-17-2024 Glucose [Mass/Vol] 98 mg/dL 74-106 [facility] Hematocrit Auto (Bld) [Volum e fraction]Ordered By: Tanner Mcduffie on 12-17-2024 Hematocrit (Bld) [Volume fraction] 45.6 % 40-54 [facility] Hemoglobin measurementOrdere d By: Tanner Mcduffie on 12-17-2024 Hemoglobin (Bld) [Mass/Vol] 15.0 g/dL 13.0-16.5 [facility] Immature granulocytes/100 WB C Auto (Bld)Ordered By: Tanner Mcduffie on 12-17-2024 Immature granulocytes/100 WBC (Bld) 0.200 % 0.0-0.9 [facility] Comment on above: IG% - Immature Granu locytes (promyelocytes, myelocytes and metamyelocytes) > 1% indicates that a LEFT SHIFT is Present. International normalized rat io (INR) calculationOrdered By: Tanner Mcduffie on 12-17-2024 INR Coag (Bld) [Relative time] 1.0 {INR} [facility] Lymphocytes Auto (Unsp spec) [#/Vol]Ordered By: Tanner Mcduffie on 12-17-2024 Lymphocytes (Bld) [#/Vol] 2.73 10*3/uL 0.83-4.51 [facility] Lymphocytes/100 WBC Auto (Un sp spec)Ordered By: Tanner Mcduffie on 12-17-2024 Lymphocytes/100 WBC (Bld) 45.4 % High 19-41 [facility] MCV (mean corpuscular volume ) determinationOrdered By: Tanner Mcduffie on 12-17-2024 MCV (RBC) [Entitic vol] 87.9 fL 80-94 [facility] Mean corpuscular hemoglobin (MCH) determinationOrdered By: Tanner Mcduffie on 12-17-2024 MCH (RBC) [Entitic mass] 28.9 pg 27.0-32.0 [facility] Mean corpuscular hemoglobin concentration (MCHC) determinationOrdered By: Tanner Mcduffie on 12-17-2024 MCHC (RBC) [Mass/Vol] 32.9 g/dL 32-36 [facility] Mean platelet volume determi nationOrdered By: Tanner Mcduffie on 12-17-2024 Platelet mean volume (Bld) [Entitic vol] 9.9 fL 6.2-12.0 [facility] Monocyte percentageOrdered B y: Tanner Mcduffie on 12-17-2024 Monocytes/100 WBC (Bld) 7.7 % 0-10 [facility] Neutrophil percentageOrdered By: Tanner Mcduffie on 12-17-2024 Neutrophils/100 WBC (Bld) 40.2 % Low 47-70 [facility] Nucleated red blood cell per centageOrdered By: Tanner Mcduffie on 12-17-2024 Nucleated RBC/100 WBC (Bld) [Ratio] 0 % 0-5 [facility] Partial Thromboplast Timeon 12-17-2024 aPTT Coag (Bld) [Time] 24.2 s Normal 24.1-36.2 [facility] Comment on above: Performed By: #### L 506.1001, L501.9520, L501.9910, L500.4050, L100.0100 #### [facility] [address] [place], [address] Platelet countOrdered By: Josh Mcduffie on 12-17-2024 Platelets (Bld) [#/Vol] 210 10*3/uL 150-450 [facility] Potassium measurementOrdered By: Tanner Mcduffie on 12-17-2024 Potassium [Moles/Vol] 4.1 mmol/L 3.5-5.1 [facility] Prothrombin Time w/INRon INR Coag (PPP) [Relative time] 1.0 {INR} Normal [facility] Comment on above: Performed By: #### L 300.4310, L300.3900, L500.2500, L100.0100 #### [facility] [address] [place], [address] PT Coag (PPP) [Time] 13.8 s Normal 11.7-14.9 [facility] Comment on above: Performed By: #### L 300.4310, L300.3900, L500.2500, L100.0100 #### [facility] [address] [place], [address] Prothrombin timeOrdered By: Tanner Mcduffie on 12-17-2024 PT Coag (PPP) [Time] 13.8 s 11.7-14.9 [facility] RBC Auto (Bld) [#/Vol]Ordere d By: Tanner Mcduffie on 12-17-2024 RBC (Bld) [#/Vol] 5.19 10*6/uL 4.6-6.2 [facility] Serum anion gap measurementO rdered By: Tanner Mcduffie on 12-17-2024 Anion gap [Moles/Vol] 6 mmol/L 5-15 [facility] Serum or plasma calcium jayne urement (mass/volume)Ordered By: Tanner Mcduffie on 12-17-2024 Calcium [Mass/Vol] 9.4 mg/dL 8.5-10.1 [facility] Serum or plasma creatinine m easurement (mass/volume)Ordered By: Tanner Mcduffie on 12-17-2024 Creatinine [Mass/Vol] 1.05 mg/dL 0.70-1.30 [facility] Comment on above: The validity of the calculated GFR & GFRAA in patients over 70 years has not been determined. Clinical correlation is essential. Serum or plasma urea nitroge n measurement (mass/volume)Ordered By: Tanner Mcduffie on 12-17-2024 Urea nitrogen [Mass/Vol] 19 mg/dL High 7-18 [facility] Sodium levelOrdered By: Filipe Mcduffie on 12-17-2024 Sodium [Moles/Vol] 140 mmol/L 136-145 [facility] Spine Cervical without Contr ason 12-17-2024 Spine Cervical without Contras [facility] Imaging Services [address] [place], [place] [address] Spine Cervical without Contras MR#: [id number] Acct: [id number] Name: TANNER PORTER Rep #: [id number] : 1955 M 69 From: José Miguel Bojorquez MD PCP: Dr. Edwin Donald MD Status: PRE ER Study: Spine Cervical without Contras Date of Exam: 0 12/17/24 Exam# [id number] Ordering Dr: Tanner Mcduffie DO [id number] STUDY: CT CERVICAL SPINE WITHOUT CONTRAST REASON FOR EXAM: Male, 69 years old. trauma RADIATION DOSAGE (If Supplied By Facility): CTDIvol = ( ) mGy, DLP = , 1375.53 ) mGycm TECHNIQUE: High resolution transaxial imaging was performed without contrast material. Sagittal and coronal images were reconstructed. Individualized dose optimization techniques were used for this CT. COMPARISON: None FINDINGS: Normal craniovertebral junction. Normal anterior atlantoaxial articulation. Normal odontoid process. Normal cervical lordosis. Normal vertebral bodies and posterior osseous elements. C2-3: Normal endplates. Normal disc height and morphology. Normal central canal and intervertebral neuroforamina. C3-4: Normal endplates. Normal disc height and morphology. Normal central canal and intervertebral neuroforamina. C4-5: Normal endplates. Normal disc height and small central disc protrusion Normal central canal and intervertebral neuroforamina. C5-6: Narrowed disc space and endplate spurring.. Normal central canal and moderate bilateral neural foraminal stenosis secondary to bony hypertrophy C6-7: Normal endplates. Narrowed disc space and normal disc morphology. Normal central canal and intervertebral neuroforamina. C7-T1: Normal endplates. Normal disc height and morphology. Normal central canal and intervertebral neuroforamina. Normal visualized soft tissue structures. CT/Spine Cervical without Contras IMPRESSION: [Mild spondylosis. No acute fracture or other significant bony pathology. Electronically Signed: José Miguel Bojorquez MD at 18:37 EST Reading Location ID and State: [address] [place] [address] Tel , Service support , CC: Dr. Tanner Mcduffie DO; Dr. Edwin Donald MD Accounting Software Specialist: Signed Normal [facility] White blood cell (WBC) count Ordered By: Tanner Mcduffie on 12-17-2024 WBC (Bld) [#/Vol] 6.0 10*3/uL 4.4-11.0 [facility] aPTT Coag (PPP) [Time]Ordere d By: Tanner Mcduffie on 12-17-2024 aPTT Coag (Bld) [Time] 24.2 s 24.1-36.2 [facility] 44-LV-Wkie[place]oy DOrdered By: George Donald on 12-03-2024 Vitamin D 25-Hydroxy 35.3 ng/mL [facility] Comment on above: Vitamin D 25(OH) Sta tus Range Deficiency <20 ng/mL (50nmol/L) Insufficiency 20 - 30 ng/mL (50 - 75 nmol/L) Sufficiency 30 - 100 ng/mL (75 - 250 nmol/L) Toxicity >100 ng/mL (>250 nmol/L) Absolute neutrophil countOrd ered By: Edwin Donald on 12-03-2024 Neutrophils (Bld) [#/Vol] 2.3 10*3/uL 2.0-7.7 [facility] Albumin to globulin ratioOrd ered By: Edwin Donald on 12-03-2024 Albumin/Globulin [Mass ratio] 1.3 {ratio} 0.9-2.4 [facility] Basophil percentageOrdered B y: Edwin Odilon on 12-03-2024 Basophils/100 WBC (Bld) 1.3 % High 0-1 [facility] Bilirubin, totalOrdered By: Edwin Donald on 12-03-2024 Bilirubin [Mass/Vol] 0.60 mg/dL 0.20-1.00 [facility] Comment on above: For patients on eltr ombopag therapy, use of Dimension [place] TBIL is not recommended. Blood urea nitrogen (BUN)/cr eatinine ratioOrdered By: Edwin Odilon on 12-03-2024 Urea nitrogen/Creatinine [Mass ratio] 16.7 mg/mg 10-20 [facility] CBC W/Diff, Automatedon Absolute Lymph 2.54 X10 3/uL Normal 0.83-4.51 [facility] Comment on above: Performed By: #### L 506.1001, L501.9520, L501.9910, L500.4050, L100.0100 #### [facility] [address] [place], [address] Absolute Neut 2.3 X10 3/uL Normal 2.0-7.7 [facility] Comment on above: Performed By: #### L 506.1001, L501.9520, L501.9910, L500.4050, L100.0100 #### [facility] [address] [place], [address] Basophils/100 WBC (Bld) 1.3 % High 0-1 [facility] Comment on above: Performed By: #### L 506.1001, L501.9520, L501.9910, L500.4050, L100.0100 #### [facility] [address] [place], [address] Eosinophils/100 WBC (Bld) 3.3 % Normal 0-5 [facility] Comment on above: Performed By: #### L 506.1001, L501.9520, L501.9910, L500.4050, L100.0100 #### [facility] [address] [place], [address] Erythrocyte distribution width (RBC) [Ratio] 13.2 % Normal 11.6-14.6 [facility] Comment on above: Performed By: #### L 506.1001, L501.9520, L501.9910, L500.4050, L100.0100 #### [facility] [address] [place], [address] Hematocrit (Bld) [Volume fraction] 47.1 % Normal 40-54 [facility] Comment on above: Performed By: #### L 506.1001, L501.9520, L501.9910, L500.4050, L100.0100 #### [facility] [address] [place], [address] Hemoglobin (Bld) [Mass/Vol] 15.7 g/dL Normal 13.0-16.5 [facility] Comment on above: Performed By: #### L 506.1001, L501.9520, L501.9910, L500.4050, L100.0100 #### [facility] [address] [place], [address] IG% 0.200 Normal 0.0-0.9 [facility] Comment on above: Result Comment: IG% - Immature Granulocytes (promyelocytes, myelocytes and metamyelocytes) > 1% indicates that a LEFT SHIFT is Present. Performed By: #### L 506.1001, L501.9520, L501.9910, L500.4050, L100.0100 #### [facility] [address] [place], [address] Lymphocytes/100 WBC (Bld) 46.2 % High 19-41 [facility] Comment on above: Performed By: #### L 506.1001, L501.9520, L501.9910, L500.4050, L100.0100 #### [facility] [address] [place], [address] MCH (RBC) [Entitic mass] 29.0 pg Normal 27.0-32.0 [facility] Comment on above: Performed By: #### L 506.1001, L501.9520, L501.9910, L500.4050, L100.0100 #### [facility] [address] [place], [address] MCHC (RBC) [Mass/Vol] 33.3 g/dL Normal 32-36 [facility] Comment on above: Performed By: #### L 506.1001, L501.9520, L501.9910, L500.4050, L100.0100 #### [facility] [address] [place], [address] MCV (RBC) [Entitic vol] 86.9 fL Normal 80-94 [facility] Comment on above: Performed By: #### L 506.1001, L501.9520, L501.9910, L500.4050, L100.0100 #### [facility] [address] [place], [address] Monocytes/100 WBC (Bld) 7.8 % Normal 0-10 [facility] Comment on above: Performed By: #### L 506.1001, L501.9520, L501.9910, L500.4050, L100.0100 #### [facility] [address] [place], [address] Neutrophils/100 WBC (Bld) 41.2 % Low 47-70 [facility] Comment on above: Performed By: #### L 506.1001, L501.9520, L501.9910, L500.4050, L100.0100 #### [facility] [address] [place], [address] Nucleated RBC (Bld) [#/Vol] 0 10*3/uL Normal 0-5 [facility] Comment on above: Performed By: #### L 506.1001, L501.9520, L501.9910, L500.4050, L100.0100 #### [facility] [address] [place], [address] Platelet mean volume (Bld) [Entitic vol] 10.0 fL Normal 6.2-12.0 [facility] Comment on above: Performed By: #### L 506.1001, L501.9520, L501.9910, L500.4050, L100.0100 #### [facility] [address] [place], [address] Platelets (Bld) [#/Vol] 226 10*3/uL Normal 150-450 [facility] Comment on above: Performed By: #### L 506.1001, L501.9520, L501.9910, L500.4050, L100.0100 #### [facility] [address] [place], [address] RBC (Bld) [#/Vol] 5.42 10*6/uL Normal 4.6-6.2 [facility] Comment on above: Performed By: #### L 506.1001, L501.9520, L501.9910, L500.4050, L100.0100 #### [facility] [address] [place], [address] RDW SD 41.6 fl Normal 35.1-43.9 [facility] Comment on above: Performed By: #### L 506.1001, L501.9520, L501.9910, L500.4050, L100.0100 #### [facility] [address] [place], [address] WBC (Bld) [#/Vol] 5.5 10*3/uL Normal 4.4-11.0 [facility] Comment on above: Performed By: #### L 506.1001, L501.9520, L501.9910, L500.4050, L100.0100 #### [facility] [address] [place], [address] Carbon dioxide measurementOr dered By: Edwin Donald on 12-03-2024 CO2 [Moles/Vol] 27.0 mmol/L 21.0-32.0 [facility] Chloride measurementOrdered By: Edwin Donald on 12-03-2024 Chloride [Moles/Vol] 108 mmol/L High 98-107 [facility] Comprehensive Metabolic Prof ilon 12-03-2024 Albumin [Mass/Vol] 4.2 g/dL Normal 3.2-5.0 [facility] Comment on above: Performed By: #### L 506.1001, L501.9520, L501.9910, L500.4050, L100.0100 #### [facility] [address] [place], [address] Albumin/Globulin [Mass ratio] 1.3 {ratio} Normal 0.9-2.4 [facility] Comment on above: Performed By: #### L 506.1001, L501.9520, L501.9910, L500.4050, L100.0100 #### [facility] [address] [place], [address] ALK P 68 U/L Normal 45-117 [facility] Comment on above: Performed By: #### L 506.1001, L501.9520, L501.9910, L500.4050, L100.0100 #### [facility] [address] [place], [address] ALT [Catalytic activity/Vol] 38 U/L Normal 16-61 [facility] Comment on above: Performed By: #### L 506.1001, L501.9520, L501.9910, L500.4050, L100.0100 #### [facility] [address] [place], [address] AST [Catalytic activity/Vol] 31 U/L Normal 15-37 [facility] Comment on above: Performed By: #### L 506.1001, L501.9520, L501.9910, L500.4050, L100.0100 #### [facility] [address] [place], [address] Bilirubin [Mass/Vol] 0.60 mg/dL Normal 0.20-1.00 [facility] Comment on above: Result Comment: For patients on eltrombopag therapy, use of Dimension [place] TBIL is not recommended. Performed By: #### L 506.1001, L501.9520, L501.9910, L500.4050, L100.0100 #### [facility] [address] [place], [address] BUN/CRE 16.7 RATIO Normal 10-20 [facility] Comment on above: Performed By: #### L 506.1001, L501.9520, L501.9910, L500.4050, L100.0100 #### [facility] [address] [place], [address] CA,Total 9.2 mg/dL Normal 8.5-10.1 [facility] Comment on above: Performed By: #### L 506.1001, L501.9520, L501.9910, L500.4050, L100.0100 #### [facility] [address] [place], [address] Chloride [Moles/Vol] 108 mmol/L High 98-107 [facility] Comment on above: Performed By: #### L 506.1001, L501.9520, L501.9910, L500.4050, L100.0100 #### [facility] [address] [place], [address] CO2 [Moles/Vol] 27.0 mmol/L Normal 21.0-32.0 [facility] Comment on above: Performed By: #### L 506.1001, L501.9520, L501.9910, L500.4050, L100.0100 #### [facility] [address] [place], [address] Creatinine [Mass/Vol] 1.08 mg/dL Normal 0.70-1.30 [facility] Comment on above: Result Comment: The validity of the calculated GFR GFRAA in patients over 70 years has not been determined. Clinical correlation is essential. Performed By: #### L 506.1001, L501.9520, L501.9910, L500.4050, L100.0100 #### [facility] [address] [place], [address] EST GFR - AA 88 mL/min Normal >60 [facility] Comment on above: Result Comment: Afri can Ethiopian GFR Calc Performed By: #### L 506.1001, L501.9520, L501.9910, L500.4050, L100.0100 #### [facility] [address] [place], [address] GAP 4 Low 5-15 [facility] Comment on above: Performed By: #### L 506.1001, L501.9520, L501.9910, L500.4050, L100.0100 #### [facility] [address] [place], [address] GFR/1.73 sq M.predicted among non-blacks MDRD (S/P/Bld) [Vol rate/Area] 72 mL/min/{1.73_m2} Normal >60 [facility] Comment on above: Result Comment: Non- GFR Calc Performed By: #### L 506.1001, L501.9520, L501.9910, L500.4050, L100.0100 #### [facility] [address] [place], [address] Globulin (S) [Mass/Vol] 3.3 g/dL Normal 2.2-4.2 [facility] Comment on above: Performed By: #### L 506.1001, L501.9520, L501.9910, L500.4050, L100.0100 #### [facility] [address] [place], [address] Glucose [Mass/Vol] 127 mg/dL High 74-106 [facility] Comment on above: Result Comment: Fast ing Glucose result greater than or equal to 126 mg/dL suggests DIABETES MELLITUS per A.D.A. criteria. Performed By: #### L 506.1001, L501.9520, L501.9910, L500.4050, L100.0100 #### [facility] [address] [place], [address] Potassium [Moles/Vol] 4.4 mmol/L Normal 3.5-5.1 [facility] Comment on above: Performed By: #### L 506.1001, L501.9520, L501.9910, L500.4050, L100.0100 #### [facility] [address] [place], [address] Sodium [Moles/Vol] 139 mmol/L Normal 136-145 [facility] Comment on above: Performed By: #### L 506.1001, L501.9520, L501.9910, L500.4050, L100.0100 #### [facility] [facility] [address] [place], [address] T PROT 7.5 g/dL Normal 6.4-8.2 [facility] Comment on above: Performed By: #### L 506.1001, L501.9520, L501.9910, L500.4050, L100.0100 #### [facility] [address] [place], [address] Urea nitrogen [Mass/Vol] 18 mg/dL Normal 7-18 [facility] Comment on above: Performed By: #### L 506.1001, L501.9520, L501.9910, L500.4050, L100.0100 #### [facility] [address] [place], [address] Eosinophil percentageOrdered By: Edwin Donald on 12-03-2024 Eosinophils/100 WBC (Bld) 3.3 % 0-5 [facility] Erythrocyte distribution wid th ratioOrdered By: Edwin Agustinok on 12-03-2024 Erythrocyte distribution width (RBC) [Ratio] 13.2 % 11.6-14.6 [facility] Erythrocyte distribution wid th standard deviationOrdered By: Edwin Donald on 12-03-2024 Erythrocyte distribution width (RBC) [Entitic vol] 41.6 fL 35.1-43.9 [facility] Estimated glomerular filtrat ion rate (GFR) AmericanOrdered By: Edwin Donald on 12-03-2024 Estimated GFR (MDRD) Amer 88 mL/min >60 [facility] Comment on above: GFR Calc Glomerular filtration rate ( GFR) estimationOrdered By: Edwin Donald on 12-03-2024 Estimated GFR (MDRD) Non-Af Amer 72 mL/min >60 [facility] Comment on above: Non- GFR Calc Glucose measurementOrdered B y: Edwin Donald on 12-03-2024 Glucose [Mass/Vol] 127 mg/dL High 74-106 [facility] Comment on above: Fasting Glucose resu lt greater than or equal to 126 mg/dL suggests DIABETES MELLITUS per A.D.A. criteria. Hematocrit Auto (Bld) [Volum e fraction]Ordered By: Edwin Donald on 12-03-2024 Hematocrit (Bld) [Volume fraction] 47.1 % 40-54 [facility] Hemoglobin measurementOrdere d By: Edwin Donald on 12-03-2024 Hemoglobin (Bld) [Mass/Vol] 15.7 g/dL 13.0-16.5 [facility] High density lipoprotein (HD L) measurementOrdered By: Edwin Donald on 12-03-2024 Cholesterol in HDL [Mass/Vol] 52 mg/dL >40 [facility] Comment on above: The drugs N-Acetylcy steine and Metamizole may falsely depress this assay. Reference Range HDL <40 mg/dL Low HDL Cholesterol HDL >or= 60 mg/dL High HDL Cholesterol Immature granulocytes/100 WB C Auto (Bld)Ordered By: Edwin Donald on 12-03-2024 Immature granulocytes/100 WBC (Bld) 0.200 % 0.0-0.9 [facility] Comment on above: IG% - Immature Granu locytes (promyelocytes, myelocytes and metamyelocytes) > 1% indicates that a LEFT SHIFT is Present. Laboratory - Chemistry and C hemistry - challengeOrdered By: Edwin Donald on 12-03-2024 AST [Catalytic activity/Vol] 31 U/L 15-37 [facility] Lipid Profileon 12-03-2024 Cholesterol [Mass/Vol] 159 mg/dL Normal 200 [facility] Comment on above: Result Comment: <200 mg/dL Desirable 200-240 mg/dL Borderline >240 mg/dL High Risk Performed By: #### L 506.1001, L501.9520, L501.9910, L500.4050, L100.0100 #### [facility] [address] [facility] [place], [place], [id number] Cholesterol in HDL [Mass/Vol] 52 mg/dL Normal [facility] Comment on above: Result Comment: The drugs N-Acetylcysteine and Metamizole may falsely depress this assay. Reference Range HDL <40 mg/dL Low HDL Cholesterol HDL >or= 60 mg/dL High HDL Cholesterol Performed By: #### L 506.1001, L501.9520, L501.9910, L500.4050, L100.0100 #### [facility] [address] [place], [address] Cholesterol in LDL [Mass/Vol] 84 mg/dL Normal 0-130 [facility] Comment on above: Performed By: #### L 506.1001, L501.9520, L501.9910, L500.4050, L100.0100 #### [facility] [address] [place], [address] Cholesterol in VLDL [Mass/Vol] 23 mg/dL Normal 5-40 [facility] Comment on above: Performed By: #### L 506.1001, L501.9520, L501.9910, L500.4050, L100.0100 #### [facility] [address] [place], [address] Triglyceride [Mass/Vol] 115 mg/dL Normal [facility] Comment on above: Result Comment: The drugs N-Acetylcysteine and Metamizole may falsely depress this assay. Serum Triglycerides Reference Interval Normal <150 mg/dL Borderline high 150 - 199 mg/dL High 200 - 499 mg/dL Very High > or = 500 mg/dL Performed By: #### L 506.1001, L501.9520, L501.9910, L500.4050, L100.0100 #### [facility] [address] [place], [address] Low density lipoprotein (LDL ) cholesterol measurementOrdered By: Edwin Donald on 12-03-2024 Cholesterol in LDL [Mass/Vol] 84 mg/dL 0-130 [facility] Lymphocytes Auto (Unsp spec) [#/Vol]Ordered By: Edwin Donald on 12-03-2024 Lymphocytes (Bld) [#/Vol] 2.54 10*3/uL 0.83-4.51 [facility] Lymphocytes/100 WBC Auto (Un sp spec)Ordered By: Edwin Donald on 12-03-2024 Lymphocytes/100 WBC (Bld) 46.2 % High 19-41 [facility] MCV (mean corpuscular volume ) determinationOrdered By: Edwin Donald on 12-03-2024 MCV (RBC) [Entitic vol] 86.9 fL 80-94 [facility] Mean corpuscular hemoglobin (MCH) determinationOrdered By: Edwin Donald on 12-03-2024 MCH (RBC) [Entitic mass] 29.0 pg 27.0-32.0 [facility] Mean corpuscular hemoglobin concentration (MCHC) determinationOrdered By: Edwin Donald on 12-03-2024 MCHC (RBC) [Mass/Vol] 33.3 g/dL 32-36 [facility] Mean platelet volume determi nationOrdered By: Edwin Donald on 12-03-2024 Platelet mean volume (Bld) [Entitic vol] 10.0 fL 6.2-12.0 [facility] Monocyte percentageOrdered B y: Edwin Donald on 12-03-2024 Monocytes/100 WBC (Bld) 7.8 % 0-10 [facility] Neutrophil percentageOrdered By: Edwin Donald on 12-03-2024 Neutrophils/100 WBC (Bld) 41.2 % Low 47-70 [facility] Nucleated red blood cell per centageOrdered By: Edwin Donald on 12-03-2024 Nucleated RBC/100 WBC (Bld) [Ratio] 0 % 0-5 [facility] Platelet countOrdered By: Alejandro Donald on 12-03-2024 Platelets (Bld) [#/Vol] 226 10*3/uL 150-450 [facility] Potassium measurementOrdered By: Edwin Donald on 12-03-2024 Potassium [Moles/Vol] 4.4 mmol/L 3.5-5.1 [facility] RBC Auto (Bld) [#/Vol]Ordere d By: Edwin Donald on 12-03-2024 RBC (Bld) [#/Vol] 5.42 10*6/uL 4.6-6.2 [facility] Serum anion gap measurementO rdered By: Edwin Donald on 12-03-2024 Anion gap [Moles/Vol] 4 mmol/L Low 5-15 [facility] Serum globulin measurementOr dered By: Edwin Donald on 12-03-2024 Globulin (S) [Mass/Vol] 3.3 g/dL 2.2-4.2 [facility] Serum or plasma alanine noble otransferase (ALT) measurementOrdered By: Edwin Donald 12-03-2024 ALT [Catalytic activity/Vol] 38 U/L 16-61 [facility] Serum or plasma albumin jayne urement (mass/volume)Ordered By: Edwin Donald 12-03-2024 Albumin [Mass/Vol] 4.2 g/dL 3.2-5.0 [facility] Serum or plasma alkaline cleo sphatase measurementOrdered By: Edwin Donald 12-03-2024 ALP [Catalytic activity/Vol] 68 U/L 45-117 [facility] Serum or plasma calcium jayne urement (mass/volume)Ordered By: Edwin Donald 12-03-2024 Calcium [Mass/Vol] 9.2 mg/dL 8.5-10.1 [facility] Serum or plasma cholesterol measurement (mass/volume)Ordered By: Edwin Donald 12-03-2024 Cholesterol [Mass/Vol] 159 mg/dL <200 [facility] Comment on above: <200 mg/dL Desirable 200-240 mg/dL Borderline >240 mg/dL High Risk Serum or plasma creatinine m easurement (mass/volume)Ordered By: Edwin Donald 12-03-2024 Creatinine [Mass/Vol] 1.08 mg/dL 0.70-1.30 [facility] Comment on above: The validity of the calculated GFR & GFRAA in patients over 70 years has not been determined. Clinical correlation is essential. Serum or plasma urea nitroge n measurement (mass/volume)Ordered By: Edwin Donald 12-03-2024 Urea nitrogen [Mass/Vol] 18 mg/dL 7-18 [facility] Sodium levelOrdered By: Edwin Donald 12-03-2024 Sodium [Moles/Vol] 139 mmol/L 136-145 [facility] TSH QnOrdered By: Edwin Donald o n 12-03-2024 Thyroid Stimulating Hormone (TSH) 2.140 uIU/mL 0.358-3.74 0 [facility] Thyroid Stim Hormone (TSH)on 12-03-2024 TSH 2.140 uIU/mL Normal 0.358-3.74 0 [facility] Comment on above: Performed By: #### L 506.1001, L501.9520, L501.9910, L500.4050, L100.0100 #### [facility] [address] [place], [address] Total proteinOrdered By: Edwin Donald on 12-03-2024 Protein [Mass/Vol] 7.5 g/dL 6.4-8.2 [facility] Triglycerides measurementOrd ered By: Edwin Donald on 12-03-2024 Triglyceride [Mass/Vol] 115 mg/dL <199 [facility] Comment on above: The drugs N-Acetylcy steine and Metamizole may falsely depress this assay.Serum Triglycerides Reference Interval Normal <150 mg/dL Borderline high 150 - 199 mg/dL High 200 - 499 mg/dL Very High > or = 500 mg/dL Very low density lipoprotein (VLDL) cholesterol measurementOrdered By: Edwin Donald on 12-03-2024 VLDL Cholesterol 23 mg/dL 5-40 [facility] Vitamin D,25 Hydroxyon 12-03 Vitamin D 25-OH 35.3 ng/mL Normal [facility] Comment on above: Result Comment: Livier min D 25(OH) Status Range Deficiency <20 ng/mL (50nmol/L) Insufficiency 20 - 30 ng/mL (50 - 75 nmol/L) Sufficiency 30 - 100 ng/mL (75 - 250 nmol/L) Toxicity >100 ng/mL (>250 nmol/L) Performed By: #### L 506.1001, L501.9520, L501.9910, L500.4050, L100.0100 #### [facility] [address] [place], [address] White blood cell (WBC) count Ordered By: Edwin Donald on 12-03-2024 WBC (Bld) [#/Vol] 5.5 10*3/uL 4.4-11.0 [facility] 12 Lead EKGon 12-02-2024 12 Lead EKG [facility] [address] [place] [address] 12 Lead EKG 12/02/24 1225 MR#: [id number] Acct: [id number] Name: TANNER PORTER Rep #: [id number] : 1955 69 From: Nick Cooper MD Attending Dr: Status: DEP ER Ordering Dr: Ravindra Delgado DO Date: 12/02/24 Location: ED Sex: M C Admitted: Test Reason : SOB Blood Pressure : */* mmHG Vent. Rate : 61 BPM Atrial Rate : 61 BPM P-R Int : 194 ms QRS Dur : 84 ms QT Int : 402 ms P-R-T Axes : 37 17 36 degrees QTcB Int : 404 ms Normal sinus rhythm Normal ECG Confirmed by Nick Cooper ([id number]), fan mail editor FABY PEACOCK ([id number]) on 12/03/2024 1:22:14 PM Referred By: Confirmed By: Nick Cooper 12/03/24 1322 Date Nick Copoer MD CC: Dr. Ravindra Delgado DO; Dr. Edwin Donald MD Signed Normal [facility] Absolute neutrophil countOrd ered By: Ravindra Delgado on 12-02-2024 Neutrophils (Bld) [#/Vol] 2.4 10*3/uL 2.0-7.7 [facility] Basic Metabolic Profile (BMP )on 12-02-2024 BUN/CRE 20.4 RATIO High 10-20 [facility] Comment on above: Order Comment: 'TROP ' Serial specimen #1, #2 or #3: 1 Performed By: #### L 506.1001, L501.9520, L501.9910, L500.4050, L100.0100 #### [facility] [address] [place], [address] CA,Total 9.5 mg/dL Normal 8.5-10.1 [facility] Comment on above: Order Comment: 'TROP ' Serial specimen #1, #2 or #3: 1 Performed By: #### L 506.1001, L501.9520, L501.9910, L500.4050, L100.0100 #### [facility] [address] [place], [address] Chloride [Moles/Vol] 109 mmol/L High 98-107 [facility] Comment on above: Order Comment: 'TROP ' Serial specimen #1, #2 or #3: 1 Performed By: #### L 506.1001, L501.9520, L501.9910, L500.4050, L100.0100 #### [facility] [address] [place], [address] CO2 [Moles/Vol] 24.0 mmol/L Normal 21.0-32.0 [facility] Comment on above: Order Comment: 'TROP ' Serial specimen #1, #2 or #3: 1 Performed By: #### L 506.1001, L501.9520, L501.9910, L500.4050, L100.0100 #### [facility] [address] [place], [address] Creatinine [Mass/Vol] 0.98 mg/dL Normal 0.70-1.30 [facility] Comment on above: Order Comment: 'TROP ' Serial specimen #1, #2 or #3: 1 Result Comment: The validity of the calculated GFR GFRAA in patients over 70 years has not been determined. Clinical correlation is essential. Performed By: #### L 506.1001, L501.9520, L501.9910, L500.4050, L100.0100 #### [facility] [address] [place], [address] ECRCL 92.85 ml/min Normal [facility] Comment on above: Order Comment: 'TROP ' Serial specimen #1, #2 or #3: 1 Performed By: #### L 506.1001, L501.9520, L501.9910, L500.4050, L100.0100 #### [facility] [address] [place], [address] EST GFR - AA 98 mL/min Normal >60 [facility] Comment on above: Order Comment: 'TROP ' Serial specimen #1, #2 or #3: 1 Result Comment: Afri can Ethiopian GFR Calc Performed By: #### L 506.1001, L501.9520, L501.9910, L500.4050, L100.0100 #### [facility] [address] [place], [address] GAP 6 Normal 5-15 [facility] Comment on above: Order Comment: 'TROP ' Serial specimen #1, #2 or #3: 1 Performed By: #### L 506.1001, L501.9520, L501.9910, L500.4050, L100.0100 #### [facility] [address] [place], [address] GFR/1.73 sq M.predicted among non-blacks MDRD (S/P/Bld) [Vol rate/Area] 81 mL/min/{1.73_m2} Normal >60 [facility] Comment on above: Order Comment: 'TROP ' Serial specimen #1, #2 or #3: 1 Result Comment: Non- GFR Calc Performed By: #### L 506.1001, L501.9520, L501.9910, L500.4050, L100.0100 #### [facility] [address] [place], [address] Glucose [Mass/Vol] 112 mg/dL High 74-106 [facility] Comment on above: Order Comment: 'TROP ' Serial specimen #1, #2 or #3: 1 Result Comment: Fast ing Glucose result from 100 to 125 mg/dL suggests IMPAIRED HOMEOSTASIS per A.D.A. criteria. Performed By: #### L 506.1001, L501.9520, L501.9910, L500.4050, L100.0100 #### [facility] [address] [place], [address] Potassium [Moles/Vol] 3.9 mmol/L Normal 3.5-5.1 [facility] Comment on above: Order Comment: 'TROP ' Serial specimen #1, #2 or #3: 1 Performed By: #### L 506.1001, L501.9520, L501.9910, L500.4050, L100.0100 #### [facility] [address] [place], [address] Sodium [Moles/Vol] 139 mmol/L Normal 136-145 [facility] Comment on above: Order Comment: 'TROP ' Serial specimen #1, #2 or #3: 1 Performed By: #### L 506.1001, L501.9520, L501.9910, L500.4050, L100.0100 #### [facility] [address] [place], [address] Urea nitrogen [Mass/Vol] 20 mg/dL High 7-18 [facility] Comment on above: Order Comment: 'TROP ' Serial specimen #1, #2 or #3: 1 Performed By: #### L 506.1001, L501.9520, L501.9910, L500.4050, L100.0100 #### [facility] [address] [place], [address] Basophil percentageOrdered B y: Ravindra Delgado on 12-02-2024 Basophils/100 WBC (Bld) 1.2 % High 0-1 [facility] Bilirubin Test strip Ql (U)O rdered By: Ravindra Delgado on 12-02-2024 Bilirubin Ql (U) Negative Negative [facility] Blood urea nitrogen (BUN)/cr eatinine ratioOrdered By: Ravindra Delgado on 12-02-2024 Urea nitrogen/Creatinine [Mass ratio] 20.4 mg/mg High 10-20 [facility] CBC W/Diff, Automatedon Absolute Lymph 3.29 X10 3/uL Normal 0.83-4.51 [facility] Comment on above: Performed By: #### L 506.1001, L501.9520, L501.9910, L500.4050, L100.0100 #### [facility] [address] [place], [address] Absolute Neut 2.4 X10 3/uL Normal 2.0-7.7 [facility] Comment on above: Performed By: #### L 506.1001, L501.9520, L501.9910, L500.4050, L100.0100 #### [facility] [address] [place], [address] Basophils/100 WBC (Bld) 1.2 % High 0-1 [facility] Comment on above: Performed By: #### L 506.1001, L501.9520, L501.9910, L500.4050, L100.0100 #### [facility] [address] [place], [address] Eosinophils/100 WBC (Bld) 3.3 % Normal 0-5 [facility] Comment on above: Performed By: #### L 506.1001, L501.9520, L501.9910, L500.4050, L100.0100 #### [facility] [address] [place], [address] Erythrocyte distribution width (RBC) [Ratio] 13.0 % Normal 11.6-14.6 [facility] Comment on above: Performed By: #### L 506.1001, L501.9520, L501.9910, L500.4050, L100.0100 #### [facility] [address] [place], [address] Hematocrit (Bld) [Volume fraction] 48.2 % Normal 40-54 [facility] Comment on above: Performed By: #### L 506.1001, L501.9520, L501.9910, L500.4050, L100.0100 #### [facility] [address] [place], [address] Hemoglobin (Bld) [Mass/Vol] 16.3 g/dL Normal 13.0-16.5 [facility] Comment on above: Performed By: #### L 506.1001, L501.9520, L501.9910, L500.4050, L100.0100 #### [facility] [address] [place], [address] IG% 0.300 Normal 0.0-0.9 [facility] Comment on above: Result Comment: IG% - Immature Granulocytes (promyelocytes, myelocytes and metamyelocytes) > 1% indicates that a LEFT SHIFT is Present. Performed By: #### L 506.1001, L501.9520, L501.9910, L500.4050, L100.0100 #### [facility] [address] [place], [address] Lymphocytes/100 WBC (Bld) 51.0 % High 19-41 [facility] Comment on above: Performed By: #### L 506.1001, L501.9520, L501.9910, L500.4050, L100.0100 #### [facility] [address] [place], [address] MCH (RBC) [Entitic mass] 29.4 pg Normal 27.0-32.0 [facility] Comment on above: Performed By: #### L 506.1001, L501.9520, L501.9910, L500.4050, L100.0100 #### [facility] [address] [place], [address] MCHC (RBC) [Mass/Vol] 33.8 g/dL Normal 32-36 [facility] Comment on above: Performed By: #### L 506.1001, L501.9520, L501.9910, L500.4050, L100.0100 #### [facility] [address] [place], [address] MCV (RBC) [Entitic vol] 86.8 fL Normal 80-94 [facility] Comment on above: Performed By: #### L 506.1001, L501.9520, L501.9910, L500.4050, L100.0100 #### [facility] [address] [place], [address] Monocytes/100 WBC (Bld) 7.1 % Normal 0-10 [facility] Comment on above: Performed By: #### L 506.1001, L501.9520, L501.9910, L500.4050, L100.0100 #### [facility] [address] [place], [address] Neutrophils/100 WBC (Bld) 37.1 % Low 47-70 [facility] Comment on above: Performed By: #### L 506.1001, L501.9520, L501.9910, L500.4050, L100.0100 #### [facility] [address] [place], [address] Nucleated RBC (Bld) [#/Vol] 0 10*3/uL Normal 0-5 [facility] Comment on above: Performed By: #### L 506.1001, L501.9520, L501.9910, L500.4050, L100.0100 #### [facility] [address] [place], [address] Platelet mean volume (Bld) [Entitic vol] 10.3 fL Normal 6.2-12.0 [facility] Comment on above: Performed By: #### L 506.1001, L501.9520, L501.9910, L500.4050, L100.0100 #### [facility] [address] [place], [address] Platelets (Bld) [#/Vol] 238 10*3/uL Normal 150-450 [facility] Comment on above: Performed By: #### L 506.1001, L501.9520, L501.9910, L500.4050, L100.0100 #### [facility] [address] [place], [address] RBC (Bld) [#/Vol] 5.55 10*6/uL Normal 4.6-6.2 [facility] Comment on above: Performed By: #### L 506.1001, L501.9520, L501.9910, L500.4050, L100.0100 #### [facility] [address] [place], [address] RDW SD 41.0 fl Normal 35.1-43.9 [facility] Comment on above: Performed By: #### L 506.1001, L501.9520, L501.9910, L500.4050, L100.0100 #### [facility] [address] [place], [address] WBC (Bld) [#/Vol] 6.5 10*3/uL Normal 4.4-11.0 [facility] Comment on above: Performed By: #### L 506.1001, L501.9520, L501.9910, L500.4050, L100.0100 #### [facility] [address] [place], [address] Carbon dioxide measurementOr dered By: Ravindra Delgado on 12-02-2024 CO2 [Moles/Vol] 24.0 mmol/L 21.0-32.0 [facility] Chest PA and Lateralon 12-02 Chest PA and Lateral [facility] Imaging Services [address] [place] [address] Chest PA and Lateral MR#: [id number] Acct: [id number] Name: TANNER PORTER Rep #: [id number] : 1955 M 69 From: Magy brice MD PCP: Dr. Edwin Donald MD Status: REG ER Study: Chest PA and Lateral Date of Exam: 12/02/24 Exam# [id number] Ordering Dr: Ravindra Delgado DO [id number] HISTORY: Dyspnea. TECHNIQUE: XR Chest 2 Views. COMPARISON: 04/06/2024. FINDINGS: CARDIOMEDIASTINAL BORDERS: Cardiac silhouette within normal limits in size. Mediastinal contour unremarkable. LUNGS: Chronic coarse interstitial markings the lung bases, likely scarring. PLEURA: No pleural effusion or pneumothorax seen. OSSEOUS STRUCTURES: Unremarkable. RAD/Chest PA and Lateral IMPRESSION: No acute cardiopulmonary process identified. Electronically Signed: Magy Vivar MD at 13:47 EST Reading Location ID and State: [facility] / [place] Tel , Service support , CC: Dr. Ravindra Delgado DO; Dr. Edwin Donald MD Accounting Software Specialist: Signed Normal [facility] Chloride measurementOrdered By: Ravindra Delgado on 12-02-2024 Chloride [Moles/Vol] 109 mmol/L High 98-107 [facility] D-Dimer Quantitative (DVT/PE )on 12-02-2024 D-DIMER QUANT 0.51 FEU/ug/m Invalid Interpretation Code 0.27-0.49 [facility] Comment on above: Result Comment: D-Di diann ELEVATED (>0.49): Additional studies and clinical assessments are indicated to conclude diagnosis of: Deep Vein Thrombosis (DVT) or Pulmonary Embolism (PE) CRITICAL VALUE CALLED TO DEE DEE 12/02/24 Keaton Diana. RESULTS READ BACK BY SAME. Performed By: #### L 506.1001, L501.9520, L501.9910, L500.4050, L100.0100 #### [facility] [address] [place], [address] D-dimer measurement for deep venous thrombosisOrdered By: Ravindra Delgado on 12-02-2024 D-Dimer Quantitative (PE/DVT) 0.51 FEU/ug/m High 0.27-0.49 [facility] Comment on above: D-Dimer ELEVATED (>0 .49): Additional studies and clinicalassessments are indicated to conclude diagnosis of:Deep Vein Thrombosis (DVT) or Pulmonary Embolism (PE)CRITICAL VALUE CALLED TO UPYQLV87/06/25 1244 Enedelia Diana.RESULTS READ BACK BY SAME. Emergency Department Summary on 12-02-2024 Emergency Department Summary [facility] Medical Records Department [address] [place] [address] Emergency Department Summary 12/02/24 MR#: [id number] Acct: [id number] Name: TANNER PORTER Rep #: [id number] : 1955 69 From: Ravindra Delgado DO PCP: Dr. Edwin Donald MD Status:DEP ER Location: ED HPI History of Present Illness Chief Complaint: Shortness of Breath Informant: patient Onset/Context/Timing Onset: Today Context: gradual and light activity Timing: Intermittent Quality: Positive for - (Heavy) Worsened by: Nothing Relieved by: Nothing Associated Symptoms Negative for cough, rhinorrhea, post nasal drip, ear pain, fever, sore throat, chills, sweats, clear sputum, white sputum, yellow sputum or green sputum Chest Pain: Positive for None Narrative Narrative: Patient presents with shortness of breath that began today. Patient states today he frequently gets up in the middle of the night to urinate. Patient states that when he does this and goes back to bed, he feels short of breath. Patient states that when he got up this morning he was still short of breath. Patient states his breathing feels heavy. Patient states he feels better since he arrived here in the emergency department. Patient states nothing makes his breathing worse and nothing makes it better. Patient admits to some lightheadedness and dizziness. Patient denies any cough. Patient denies any fevers or chills. Patient denies any chest pain. PE Risk Factors: Positive for Cancer; Negative for OCP + Smoking + > 35, Prior DVT or PE, Recent immobilization, Recent surgery or Recent travel PFSH PFSH Medical History Former smoker Pulmonary embolism Migraines Excessive daytime sleepiness Peripheral neuropathy Generalized weakness Degenerative cervical disc Hyperglycemia Hypophosphatemia Hypokalemia Vitamin D deficiency Myalgia Urinary frequency Vertigo Pulmonary embolism Hyperlipidemia Anxiety Prostate cancer Colon cancer HTN (hypertension) Home Medications ???Medication ???Instructions ???Recorded ???Last Taken ???Type pravastatin 40 mg tablet 40 mg PO QHS 01/16/18 Unknown History polyethylene glycol 3350 17 17 g PO DAILY 03/29/19 Unknown History gram/dose oral powder multivitamin 1 tab PO DAILY 04/02/19 Unknown History gabapentin 300 mg capsule 300 mg PO BIDCM PRN numbness and 04/22/20 Unknown History tingling losartan 25 mg tablet 50 mg PO BID 04/06/24 Unknown History levothyroxine 25 mcg tablet 25 mcg PO DAILY 04/07/24 Unknown History Allergy/AdvReac Type Severity Reaction Status Date / Time amlodipine Allergy Unknown Unknown Verified 12/02/24 11:42 Family History Brother Heart disease Myocardial infarction Surgical History s/p port placement History of colon resection Social History Smoking Status: Former smoker alcohol intake: never ROS ROS ED Constitutional Constitutional ED: Denies chills or fever(s) Eyes Eyes: Denies blurry vision or change in vision ENT ENT ED: Denies rhinorrhea or sore throat Cardiovascular Cardiovascular: Denies chest pain or palpitations Respiratory/Chest Respiratory/Chest: Reports dyspnea; Denies cough Gastrointestinal Gastrointestinal: Denies nausea or vomiting Genitourinary Genitourinary ED: Denies dysuria or hematuria Musculoskeletal Musculoskeletal: Denies back pain or neck pain Integumentary Denies abscess or rash Neurologic Neurologic: Denies headache(s) or weakness Allergic/Immunologic Allergic/Immunologic ED: Denies mouth swelling or urticaria EXAM Physical Exam Const Vital Signs: 12/02/24 11:42 12/02/24 11:55 12/02/24 13:42 Temperature 97.2 F L Temperature Source Axillary Pulse Rate 95 55 L Respiratory Rate 20 H 14 Respiratory Effort Short of Breath Blood Pressure 167/91 H 116/76 Blood Pressure Mean 116 89 Pulse Ox 99 94 Oxygen Delivery Method Room Air Room Air Positive well nourished and well developed General Appearance ED: well developed and NAD HEENT Reports moist mucous membranes Neck supple and no JVD Resp normal respiratory effort and clear to auscultation bilaterally Cardio regular rate and regular rhythm GI non-tender and non-distended Palpation: soft Extremity normal to inspection Neuro oriented x3, CN's II-XII intact bilaterally and no sensory deficits noted [place] Coma Scale: document GCS findings Spontaneous Obeys Commands Oriented 15 Sensorium / Orientation: alert Speech: speech normal Motor Exam: strength 5/5 throughout Psych mental status grossly normal MDM MDM MDM Narrati (more content not included)... Normal [facility] Eosinophil percentageOrdered By: Ravindra Delgado on 12-02-2024 Eosinophils/100 WBC (Bld) 3.3 % 0-5 [facility] Epithelial cells.squamous LM Ql (Urine sed)Ordered By: Ravindra Delgado on 12-02-2024 Epithelial cells.squamous LM.HPF (Urine sed) [#/Area] 0 /[HPF] 0-5 [facility] Erythrocyte distribution wid th ratioOrdered By: Ravindra Delgado on 12-02-2024 Erythrocyte distribution width (RBC) [Ratio] 13.0 % 11.6-14.6 [facility] Erythrocyte distribution wid th standard deviationOrdered By: Ravindra Delgado on 12-02-2024 Erythrocyte distribution width (RBC) [Entitic vol] 41.0 fL 35.1-43.9 [facility] Estimated glomerular filtrat ion rate (GFR) AmericanOrdered By: Ravindra Delgado on 12-02-2024 Estimated GFR (MDRD) Amer 98 mL/min >60 [facility] Comment on above: GFR Calc Estimation of creatinine tanja aranceOrdered By: Ravindra Delgado on 12-02-2024 Estimated Creatinine Clearance Calc 92.85 ml/min [facility] Glomerular filtration rate ( GFR) estimationOrdered By: Ravindra Delgado on 12-02-2024 Estimated GFR (MDRD) Non-Af Amer 81 mL/min >60 [facility] Comment on above: Non- GFR Calc Glucose Ql (U)Ordered By: Tashi Delgado on 12-02-2024 Urine Glucose (UA) Normal mg/dl Normal [facility] Glucose measurementOrdered B y: Ravindra Rolledaniel on 12-02-2024 Glucose [Mass/Vol] 112 mg/dL High 74-106 [facility] Comment on above: Fasting Glucose resu lt from 100 to 125 mg/dL suggests IMPAIRED HOMEOSTASIS per A.D.A. criteria. Hematocrit Auto (Bld) [Volum e fraction]Ordered By: Ravindra Delgado on 12-02-2024 Hematocrit (Bld) [Volume fraction] 48.2 % 40-54 [facility] Hemoglobin measurementOrdere d By: Ravindra Delgado on 12-02-2024 Hemoglobin (Bld) [Mass/Vol] 16.3 g/dL 13.0-16.5 [facility] Immature granulocytes/100 WB C Auto (Bld)Ordered By: Ravindra Delgado on 12-02-2024 Immature granulocytes/100 WBC (Bld) 0.300 % 0.0-0.9 [facility] Comment on above: IG% - Immature Granu locytes (promyelocytes, myelocytes and metamyelocytes) > 1% indicates that a LEFT SHIFT is Present. Ketones Test strip Ql (U)Ord ered By: Ravindra Delgado on 12-02-2024 Ketones Ql (U) Negative Negative [facility] L501.4020on 12-02-2024 TROPONIN-I HS 6 pg/mL Normal 3.0-78.0 [facility] Comment on above: Order Comment: 'TROP ' Serial specimen #1, #2 or #3: 1 Result Comment: Plea se Note: New Test Units and Gender Specific Reference Ranges. For more information see Policy Stat Procedure [place] High Sensitivity Troponin (TNIH) and attachments. Performed By: #### L 506.1001, L501.9520, L501.9910, L500.4050, L100.0100 #### [facility] [address] [place], [address] Lymphocytes Auto (Unsp spec) [#/Vol]Ordered By: Ravindra Delgado on 12-02-2024 Lymphocytes (Bld) [#/Vol] 3.29 10*3/uL 0.83-4.51 [facility] Lymphocytes/100 WBC Auto (Un sp spec)Ordered By: Ravindra Delgado on 12-02-2024 Lymphocytes/100 WBC (Bld) 51.0 % High 19-41 [facility] MCV (mean corpuscular volume ) determinationOrdered By: Ravindra Delgado on 12-02-2024 MCV (RBC) [Entitic vol] 86.8 fL 80-94 [facility] Mean corpuscular hemoglobin (MCH) determinationOrdered By: Ravindra Delgado on 12-02-2024 MCH (RBC) [Entitic mass] 29.4 pg 27.0-32.0 [facility] Mean corpuscular hemoglobin concentration (MCHC) determinationOrdered By: Ravindra Delgado on 12-02-2024 MCHC (RBC) [Mass/Vol] 33.8 g/dL 32-36 [facility] Mean platelet volume determi nationOrdered By: Ravindra Delgado on 12-02-2024 Platelet mean volume (Bld) [Entitic vol] 10.3 fL 6.2-12.0 [facility] Microscopic analysis of urin e for red blood cells (RBC)Ordered By: Ravindra Delgado on 12-02-2024 Urine RBC 0 SEEN /hpf 0-5 [facility] Monocyte percentageOrdered B y: Ravindra Delgado on 12-02-2024 Monocytes/100 WBC (Bld) 7.1 % 0-10 [facility] Mucus LM Ql (Urine sed)Order ed By: Ravindra Delgado on 12-02-2024 Mucus Ql (Urine sed) 0 SEEN /hpf [facility] Neutrophil percentageOrdered By: Ravindra Delgado on 12-02-2024 Neutrophils/100 WBC (Bld) 37.1 % Low 47-70 [facility] Nitrite Test strip Ql (U)Ord ered By: Ravindra Delgado on 12-02-2024 Nitrite Ql (U) Negative Negative [facility] Nucleated red blood cell per centageOrdered By: Ravindra Delgado on 12-02-2024 Nucleated RBC/100 WBC (Bld) [Ratio] 0 % 0-5 [facility] Platelet countOrdered By: Tashi Delgado on 01-06-2025 Platelets (Bld) [#/Vol] 238 10*3/uL 150-450 [facility] Potassium measurementOrdered By: Ravindra Delgado on 12-02-2024 Potassium [Moles/Vol] 3.9 mmol/L 3.5-5.1 [facility] Protein Test strip Ql (U)Ord ered By: Ravindra Delgado on 12-02-2024 Protein Ql (U) 30 mg/dl High Negative [facility] RBC Auto (Bld) [#/Vol]Ordere d By: Ravindra Delgado on 12-02-2024 RBC (Bld) [#/Vol] 5.55 10*6/uL 4.6-6.2 [facility] Serum anion gap measurementO rdered By: Ravindra Delgado on 12-02-2024 Anion gap [Moles/Vol] 6 mmol/L 5-15 [facility] Serum or plasma calcium jayne urement (mass/volume)Ordered By: Ravindra Delgado on 12-02-2024 Calcium [Mass/Vol] 9.5 mg/dL 8.5-10.1 [facility] Serum or plasma creatinine m easurement (mass/volume)Ordered By: Ravindra Delgado on 12-02-2024 Creatinine [Mass/Vol] 0.98 mg/dL 0.70-1.30 [facility] Comment on above: The validity of the calculated GFR & GFRAA in patients over 70 years has not been determined. Clinical correlation is essential. Serum or plasma urea nitroge n measurement (mass/volume)Ordered By: Ravindra Delgado on 12-02-2024 Urea nitrogen [Mass/Vol] 20 mg/dL High 7-18 [facility] Sodium levelOrdered By: Ravindra Delgado on 12-02-2024 Sodium [Moles/Vol] 139 mmol/L 136-145 [facility] Troponin IOrdered By: Ravindra balbuena on 12-02-2024 Troponin I High Sensitivity 6 pg/mL 3.0-78.0 [facility] Comment on above: Please Note: New Libby t Units and Gender Specific Reference Ranges. For more information see Policy Stat Procedure [place] High Sensitivity Troponin (TNIH) and attachments. Urinalysis, Completeon 12-02 WBC 0-5 SEEN Normal 0-5 [facility] Comment on above: Order Comment: CLEAN CATCH Performed By: #### L 506.1001, L501.9520, L501.9910, L500.4050, L100.0100 #### [facility] [address] [place], [address] BACTERIA 0 SEEN Normal None Seen [facility] Comment on above: Order Comment: CLEAN CATCH Performed By: #### L 506.1001, L501.9520, L501.9910, L500.4050, L100.0100 #### [facility] [address] [place], [address] EPI,SQUAMOUS 0 SEEN Normal 0-5 [facility] Comment on above: Order Comment: CLEAN CATCH Performed By: #### L 506.1001, L501.9520, L501.9910, L500.4050, L100.0100 #### [facility] [address] [place], [address] Mucus Ql (Urine sed) 0 SEEN Normal [facility] Comment on above: Order Comment: CLEAN CATCH Performed By: #### L 506.1001, L501.9520, L501.9910, L500.4050, L100.0100 #### [facility] [address] [place], [address] RBC 0 SEEN Normal 0-5 [facility] Comment on above: Order Comment: CLEAN CATCH Performed By: #### L 506.1001, L501.9520, L501.9910, L500.4050, L100.0100 #### [facility] [address] [place], [address] Urine blood detectionOrdered By: Ravindra Delgado on 12-02-2024 Urine Occult Blood Negative Negative [facility] Urine clarityOrdered By: Rupal Delgado on 12-02-2024 Clarity (U) Clear Clear [facility] Urine color determinationOrd ered By: Ravindra Delgado on 12-02-2024 Color (U) Yellow Yellow [facility] Urine leukocyte esterase det ection by dipstickOrdered By: Ravindra Delgado on 12-02-2024 Leukocyte esterase Test strip Ql (U) 25 /ul High Negative [facility] Urine pHOrdered By: Ravindra purcell on 12-02-2024 pH (U) 6.0 [pH] 5.0 - 8.0 [facility] Urine sediment bacteria coun t by microscopy (number/high power field)Ordered By: Ravindra Delgado on 12-02-2024 Bacteria LM.HPF (Urine sed) [#/Area] 0 /[HPF] None Seen [facility] Urine specific gravity measu rementOrdered By: Ravindra Delgado on 12-02-2024 Specific gravity (U) [Rel density] 1.020 1.002-1.03 0 [facility] Urobilinogen Ql (U)Ordered B y: Ravindra Delgado on 12-02-2024 Urine Urobilinogen Normal mg/dl Normal [facility] White blood cell (WBC) count Ordered By: Ravindra Delgado on 12-02-2024 WBC (Bld) [#/Vol] 6.5 10*3/uL 4.4-11.0 [facility] White blood cell countOrdere d By: Ravindra Delgado on 12-02-2024 Urine WBC 0-5 SEEN /hpf 0-5 [facility] Absolute lymphocyte countOrd ered By: Ravindra Delgado on 04-06-2024 Lymphocytes Auto (Unsp spec) [#/Vol] 2.53 10*3/uL 0.83-4.51 [facility] Automated lymphocyte count a s percentage of total leukocytesOrdered By: Ravindra Delgado on 04-06-2024 Lymphocytes/100 WBC Auto (Unsp spec) 42.0 % 19-41 [facility] Basophil percentageOrdered B y: Ravindra Delgado on 04-06-2024 Basophil percentage 0 SEEN /hpf 0-5 [facility] Basophils/100 WBC (Bld) 1.2 % 0-1 [facility] Chloride [Moles/Vol] 110 mmol/L 98-107 [facility] Eosinophils/100 WBC (Bld) 4.8 % 0-5 [facility] Glucose [Mass/Vol] 87 mg/dL 74-106 [facility] Hemoglobin (Bld) [Mass/Vol] 13.8 g/dL 13.0-16.5 [facility] Monocytes/100 WBC (Bld) 9.0 % 0-10 [facility] Neutrophils (Bld) [#/Vol] 2.6 10*3/uL 2.0-7.7 [facility] Neutrophils/100 WBC (Bld) 42.7 % 47-70 [facility] Potassium [Moles/Vol] 4.3 mmol/L 3.5-5.1 [facility] Sodium [Moles/Vol] 142 mmol/L 136-145 [facility] WBC (Bld) [#/Vol] 6.0 10*3/uL 4.4-11.0 [facility] Bilirubin Test strip Ql (U)O rdered By: Ravindra Delgado on 04-06-2024 Bilirubin Ql (U) Negative Negative [facility] Determination of erythrocyte mean corpuscular volume (MCV)Ordered By: Ravindra Delgado on 04-06-2024 MCV (RBC) [Entitic vol] 88.8 fL 80-94 [facility] Erythrocyte distribution wid th ratioOrdered By: Ravindra Delgado on 04-06-2024 Erythrocyte distribution width (RBC) [Ratio] 13.0 % 11.6-14.6 [facility] Erythrocyte distribution wid th standard deviationOrdered By: Ravindra Delgado on 04-06-2024 Erythrocyte distribution width (RBC) [Entitic vol] 42.3 fL 35.1-43.9 [facility] Hematocrit Auto (Bld) [Volum e fraction]Ordered By: Ravindra Delgado on 04-06-2024 Hematocrit (Bld) [Volume fraction] 41.9 % 40-54 [facility] Immature granulocytes/100 WB C Auto (Bld)Ordered By: Ravindra Delgado on 04-06-2024 Immature granulocytes/100 WBC (Bld) 0.300 % 0.0-0.9 [facility] Comment on above: IG% - Immature Granu locytes (promyelocytes, myelocytes and metamyelocytes) > 1% indicates that a LEFT SHIFT is Present. Ketones Test strip Ql (U)Ord ered By: Ravindra Delgado on 04-06-2024 Ketones Ql (U) Negative Negative [facility] - Chemistry and C hemistry - challengeOrdered By: Ravindra Delgado on 04-06-2024 CO2 [Moles/Vol] 27.0 mmol/L 21.0-32.0 [facility] Urea nitrogen/Creatinine [Mass ratio] 21.3 mg/mg 10-20 [facility] - Hematology and Cell countsOrdered By: Ravindra Delgado on 04-06-2024 MCH (RBC) [Entitic mass] 29.2 pg 27.0-32.0 [facility] MCHC (RBC) [Mass/Vol] 32.9 g/dL 32-36 [facility] Nucleated RBC/100 WBC (Bld) [Ratio] 0 % 0-5 [facility] Platelet mean volume (Bld) [Entitic vol] 10.3 fL 6.2-12.0 [facility] Platelets (Bld) [#/Vol] 187 10*3/uL 150-450 [facility] Mucus LM Ql (Urine sed)Order ed By: Ravindra Delgado on 04-06-2024 Mucus Ql (Urine sed) 0 SEEN /hpf [facility] Nitrite Test strip Ql (U)Ord ered By: Ravindra Delgado on 04-06-2024 Nitrite Ql (U) Negative Negative [facility] No Panel InformationOrdered By: Ravindra Delgado on 04-06-2024 Estimated Creatinine Clearance Calc 103.61 ml/min [facility] Estimated GFR (MDRD) Amer 109 mL/min >60 [facility] Comment on above: GFR Calc Estimated GFR (MDRD) Non-Af Amer 91 mL/min >60 [facility] Comment on above: Non- GFR Calc Troponin I High Sensitivity 12 pg/mL 3.0-78.0 [facility] Comment on above: Please Note: New Libby t Units and Gender Specific Reference Ranges. For more information see Policy Stat Procedure [place] High Sensitivity Troponin (TNIH) and attachments. Urine RBC 0 SEEN /hpf 0-5 [facility] Protein Test strip Ql (U)Ord ered By: Ravindra Delgado on 04-06-2024 Protein Ql (U) Negative Negative [facility] RBC Auto (Bld) [#/Vol]Ordere d By: Ravindra Delgado on 04-06-2024 RBC (Bld) [#/Vol] 4.72 10*6/uL 4.6-6.2 [facility] Serum or plasma calcium jayne urement (mass/volume)Ordered By: Ravindra Delgado on 04-06-2024 Calcium [Mass/Vol] 9.3 mg/dL 8.5-10.1 [facility] Serum or plasma creatinine m easurement (mass/volume)Ordered By: Ravindra Delgado on 04-06-2024 Creatinine [Mass/Vol] 0.89 mg/dL 0.70-1.30 [facility] Comment on above: The validity of the calculated GFR & GFRAA in patients over 70 years has not been determined. Clinical correlation is essential. Serum or plasma urea nitroge n measurement (mass/volume)Ordered By: Ravindra Delgado on 04-06-2024 Urea nitrogen [Mass/Vol] 19 mg/dL 7-18 [facility] Squamous epithelial cells de tection in urine sediment by light microscopyOrdered By: Ravindra Delgado on 04-06-2024 Epithelial cells.squamous LM Ql (Urine sed) 0 SEEN /hpf 0-5 [facility] Thin prep Papanicolaou smear with manual screeningOrdered By: Ravindra Delgado on 04-06-2024 Thin prep Papanicolaou smear with manual screening 5 5-15 [facility] Urine blood detectionOrdered By: Ravindra Delgado on 04-06-2024 RBC Ql (U) Negative Negative [facility] Urine clarityOrdered By: Rupal Delgado on 04-06-2024 Clarity (U) Clear Clear [facility] Urine color determinationOrd ered By: Ravindra Delgado on 04-06-2024 Color (U) Yellow Yellow [facility] Urine glucose detectionOrder ed By: Ravindra Delgado on 04-06-2024 Glucose Ql (U) Normal mg/dl Normal [facility] Urine leukocyte esterase det ection by dipstickOrdered By: Ravindra Delgado on 04-06-2024 Leukocyte esterase Test strip Ql (U) Negative Negative [facility] Urine pHOrdered By: Ravindra prucell on 05-11-2024 pH (U) 6.5 [pH] 5.0 - 8.0 [facility] Urine sediment bacteria coun t by microscopy (number/high power field)Ordered By: Ravindra Delgado on 04-06-2024 Bacteria LM.HPF (Urine sed) [#/Area] 0 /[HPF] None Seen [facility] Urine specific gravity measu rementOrdered By: Ravindra Delgado on 04-06-2024 Specific gravity (U) [Rel density] 1.015 1.002-1.03 0 [facility] Urine urobilinogen measureme ntOrdered By: Ravindra Delgado on 04-06-2024 Urobilinogen Ql (U) Normal mg/dl Normal [facility] Bacteria Ur Culton Bacteria identified Cx Nom (U) CULTURE, URINE: No growth (<1,000 CFU/ml) Normal [facility] Comment on above: Performed By: #### 6 30-4 #### [facility] CLIA [id number] [address] [place] [address] CNOVon 02-27-2024 CNOV Office Visit (UROLWS ) ----- TANNER PORTER ([id number]) 1955 M Date Time Provider Department 02/27/24 2:00 PM KATERINE GAMBOA During your visit today, we recorded the following information about you: Temperature Pulse Respiration Blood pressure 97.8 degrees 84/minute 14/minute 136/90 Weight Height 106 kg 1.829 m Shirley Jarquin LPN 02/27/2024 6:00 PM Signed Verified name and date of . CC Post Void Residual HPI: Tanner Porter is a 68 year old male. The patient is here now for an appointment with Katerine Gamboa, [place], [place], PA-COV. Procedure: Explained procedure to patient and verbalizes understanding. Performed a PVR. Patient urinated and instructed to empty bladder as much as possible just prior to having PVR done using bladder ultrasound scanner. Results of scan: 0 mL The patient tolerated the procedure well. Plan: Appointment with Katerine. Katerine Gamboa PA-C 02/27/2024 6:00 PM Signed [facility] NEW PATIENT CLINIC NOTE SERVICE DATE: 02/27/2024 SERVICE TIME: 2:34 PM NAME: Tanner Porter CHIEF COMPLAINT: Urinary Urgency HISTORY OF PRESENT ILLNESS: Tanner Porter is a 68 year old male presenting as an New Patient for urinary urgency and frequency at night The patient reports had CaP which was treated with Brachytherapy 2015 and has now started having the urgency and Nocturia May have radiation cystitis from brachytherapy, no hematuria However his pvr is 0 ml Discuss good hydration and Azo as needed And to look into hyperbaric Oxygen therapy Consult orders placed LUTS: DYSURIA: no URGENCY: Yes FREQUENCY:6 per day NOCTURIA: 4 per night STRAINING TO VOID: Yes EMPTIES COMPLETELY: Yes UTI: No GROSS HEMATURIA: no UA DIPSTICK POSITIVE ONLY: no Other symptoms: LABS: No results found for: TESTOST No results found for: TESTFREE PSA (ng/mL) Date Value 12/26/2019 <0.03 02/04/2019 0.04 10/18/2017 0.09 No results found for: HCT PSA (ng/mL) Date Value 12/26/2019 <0.03 02/04/2019 0.04 10/18/2017 0.09 05/10/2017 0.14 No results found for: CREAT MEDICATIONS: buprenorphine-nalOXone SL (SUBOXONE) 8-2 mg subl Takes 1/8 to a 1/4 tablet up to four times daily as needed pravastatin (PRAVACHOL) 40 mg tablet Take 40 mg by mouth once daily. levothyroxine (SYNTHROID) 25 mcg tablet Take 25 mcg by mouth daily before breakfast. gabapentin (NEURONTIN) 300 mg capsule Take 600 mg by mouth once daily as needed. naproxen (NAPROSYN) 500 mg tablet Take 500 mg by mouth once daily as needed. losartan (COZAAR) 25 mg tablet Take 25 mg by mouth once daily. And 50 MG by mouth at bedtime lactulose (DUPHALAC, CONSTULOSE) 10 gram/15 mL solution ondansetron (ZOFRAN) 4 mg tablet Take 4 mg by mouth as needed. PAST MEDICAL HISTORY: PAST MEDICAL HISTORY Diagnosis Date Adenocarcinoma of prostate (HCC) Benign paroxysmal positional vertigo Colon cancer (HCC) 2014 Degeneration of cervical intervertebral disc Depressive disorder, not elsewhere classified Essential hypertension, benign Generalized anxiety disorder Headache(784.0) Hypopotassemia Lyme disease pt reports that this was ruled out 07/14/16 Nocturia Other abnormal glucose Other malaise and fatigue Other specified disease of pancreas Prostate cancer (HCC) 2014 Urinary frequency PAST SURGICAL HISTORY: PAST SURGICAL HISTORY Procedure Laterality Date COLONOSCOPY 07/2015 Dr. Alvarado COLONOSCOPY FLX DX W/COLLJ SPEC WHEN PFRMD 07-18-16 PAST SURGICAL HISTORY OF 08/2015 partial colectomy, [place] PORTOCATH PLACEMENT 08/2015 [place], [place] FAMILY HISTORY: FAMILY HISTORY Problem Relation Age of Onset Hypertension Brother Ischemic Heart Disease Brother SOCIAL HISTORY: Social Connections: Not on file REVIEW OF SYSTEMS: GENERAL: No fever, chills, weight loss, or fatigue. ENMT: Negative CARDIOVASCULAR:NO CHEST PAIN, PALPITATIONS, ANKLE EDEMA RESPIRATORY: No chronic cough, wheezing, dyspnea, hemoptysis. GENITOURINARY: SEE HPI MUSCULOSKELETAL:NO CHRONIC BACK PAIN, ARTHRITIS, CHRONIC NECK PAIN SKIN: NO VARICOSE VEINS, RASH, ABNORMAL ITCHING HEME/LYMPH/IMMUNE:Negativ e for prolonged bleeding, bruising easily or swollen nodes NEUROLOGICAL: NO HEADACHES, NUMBNESS, SEIZURES, STROKE DIABETES: no All other systems reviewed and are negative PHYSICAL EXAMINATION: Blood pressure 136/90, pulse 84, temperature 36.6 ?C (97.8 ?F), temperature source Temporal, resp. rate 14, height 182.9 cm (6'), weight 106 kg (233 lb 9.6 oz), SpO2 97%. GENERAL: WNL nutrition, no deformities, healthy appearing NEURO: Awake, alert and oriented x 3 and Normal gait PSYCH: No signs of depression, anxiety, or agitation ENMT (Ear, Nose, Mouth, Throat): No masses, adenopathy, icterus. Thyroid nonpalpable RESP: NL effort, no ret (more content not included)... Normal [facility] UA DIP, URINE (POC)on 2023 BILIRUBIN UA (POCT) Negative Negative [facility] CLARITY UA (POCT) Clear [facility] COLOR UA (POCT) Yellow [facility] GLUCOSE UA (POCT) Negative Negative mg/dL [facility] Hemoglobin Ql (U) Negative Negative [facility] KETONE UA (POCT) Negative Negative mg/dL [facility] LEUKOCYTES UA (POCT) Trace Abnormal Negative [facility] NITRITE UA (POCT) Negative Negative [facility] PH UA (POCT) 5.5 4.5 - 8.0 [facility] Protein Ql (U) Negative Negative mg/dL [facility] SPECIFIC GRAVITY UA (POCT) 1.025 1.005 - 1.030 [facility] UROBILINOGEN UA (POCT) 0.2 E.U./dL Normal E.U./dL [facility] Absolute lymphocyte countOrd ered By: Edwin Donald on 11-02-2023 Lymphocytes Auto (Unsp spec) [#/Vol] 1.75 10*3/uL 0.83-4.51 [facility] Basophil percentageOrdered B y: Edwin Donald on 11-02-2023 Basophils/100 WBC (Bld) 0.9 % 0-1 [facility] Bilirubin [Mass/Vol] 0.40 mg/dL 0.20-1.00 [facility] Comment on above: For patients on eltr ombopag therapy, use of Dimension [place] TBIL is not recommended. Chloride [Moles/Vol] 110 mmol/L 98-107 [facility] Cholesterol [Mass/Vol] 159 mg/dL <200 [facility] Comment on above: <200 mg/dL Desirable 200-240 mg/dL Borderline >240 mg/dL High Risk Eosinophils/100 WBC (Bld) 2.9 % 0-5 [facility] Glucose [Mass/Vol] 141 mg/dL 74-106 [facility] Comment on above: Fasting Glucose resu lt greater than or equal to 126 mg/dL suggests DIABETES MELLITUS per A.D.A. criteria. Neutrophils (Bld) [#/Vol] 2.3 10*3/uL 2.0-7.7 [facility] Neutrophils/100 WBC (Bld) 51.8 % 47-70 [facility] Potassium [Moles/Vol] 3.6 mmol/L 3.5-5.1 [facility] Protein [Mass/Vol] 7.1 g/dL 6.4-8.2 [facility] Sodium [Moles/Vol] 140 mmol/L 136-145 [facility] Triglyceride [Mass/Vol] 124 mg/dL <199 [facility] Comment on above: The drugs N-Acetylcy steine and Metamizole may falsely depress this assay.Serum Triglycerides Reference Interval Normal <150 mg/dL Borderline high 150 - 199 mg/dL High 200 - 499 mg/dL Very High > or = 500 mg/dL WBC (Bld) [#/Vol] 4.5 10*3/uL 4.4-11.0 [facility] Blood erythrocytes count (nu mber/volume)Ordered By: Edwin Donald on 11-02-2023 RBC (Bld) [#/Vol] 4.98 10*6/uL 4.6-6.2 [facility] Blood hemoglobin measurement (mass/volume)Ordered By: Edwin Donald on 11-02-2023 Hemoglobin (Bld) [Mass/Vol] 14.7 g/dL 13.0-16.5 [facility] Blood lymphocytes/100 leukoc ytesOrdered By: Edwin Donald on 11-02-2023 Lymphocytes/100 WBC (Bld) 38.7 % 19-41 [facility] Blood monocytes/100 leukocyt esOrdered By: Edwin Donald on 11-02-2023 Monocytes/100 WBC (Bld) 5.5 % 0-10 [facility] Blood platelet mean volumeOr dered By: Edwin Donald on 11-02-2023 Platelet mean volume (Bld) [Entitic vol] 10.2 fL 6.2-12.0 [facility] Determination of erythrocyte mean corpuscular volume (MCV)Ordered By: Edwin Donald on 11-02-2023 MCV (RBC) [Entitic vol] 86.7 fL 80-94 [facility] Hematocrit Auto (Bld) [Volum e fraction]Ordered By: Edwin Donald on 11-02-2023 Hematocrit (Bld) [Volume fraction] 43.2 % 40-54 [facility] Laboratory - Chemistry and C hemistry - challengeOrdered By: Edwin Donald on 11-02-2023 ALP [Catalytic activity/Vol] 65 U/L 45-117 [facility] ALT [Catalytic activity/Vol] 27 U/L 16-61 [facility] CO2 [Moles/Vol] 24.0 mmol/L 21.0-32.0 [facility] Globulin (S) [Mass/Vol] 3.4 g/dL 2.2-4.2 [facility] Urea nitrogen/Creatinine [Mass ratio] 14.5 mg/mg 10-20 [facility] Laboratory - Hematology and Cell countsOrdered By: Edwin Donald on 11-02-2023 Erythrocyte distribution width (RBC) [Entitic vol] 41.1 fL 35.1-43.9 [facility] Erythrocyte distribution width (RBC) [Ratio] 13.2 % 11.6-14.6 [facility] Immature granulocytes/100 WBC (Bld) 0.200 % 0.0-0.9 [facility] Comment on above: IG% - Immature Granu locytes (promyelocytes, myelocytes and metamyelocytes) > 1% indicates that a LEFT SHIFT is Present. MCH (RBC) [Entitic mass] 29.5 pg 27.0-32.0 [facility] Nucleated RBC/100 WBC (Bld) [Ratio] 0 % 0-5 [facility] MCHC Auto (RBC) [Mass/Vol]Or dered By: Edwin Donald on 11-02-2023 MCHC (RBC) [Mass/Vol] 34.0 g/dL 32-36 [facility] No Panel InformationOrdered By: Edwin Donald on 11-02-2023 Estimated GFR (MDRD) Amer 86 mL/min >60 [facility] Comment on above: GFR Calc Estimated GFR (MDRD) Non-Af Amer 71 mL/min >60 [facility] Comment on above: Non- GFR Calc Thyroid Stimulating Hormone (TSH) 3.06 uIU/mL 0.358-3.74 [facility] Vitamin D 25-Hydroxy 34.3 ng/mL [facility] Comment on above: Vitamin D 25(OH) Sta tus Range Deficiency <20 ng/mL (50nmol/L) Insufficiency 20 - 30 ng/mL (50 - 75 nmol/L) Sufficiency 30 - 100 ng/mL (75 - 250 nmol/L) Toxicity >100 ng/mL (>250 nmol/L) Platelets bldOrdered By: Edwin Donald on 11-02-2023 Platelets (Bld) [#/Vol] 193 10*3/uL 150-450 [facility] Serum or plasma albumin ajyne urement (mass/volume)Ordered By: Edwin Donald on 11-02-2023 Albumin [Mass/Vol] 3.7 g/dL 3.2-5.0 [facility] Serum or plasma albumin/glob ulin mass ratioOrdered By: Edwin Donald 11-02-2023 Albumin/Globulin [Mass ratio] 1.1 {ratio} 0.9-2.4 [facility] Serum or plasma calcium jayne urement (mass/volume)Ordered By: Edwin Donald 11-02-2023 Calcium [Mass/Vol] 8.4 mg/dL 8.5-10.1 [facility] Serum or plasma cholesterol in HDL measurement (mass/volume)Ordered By: Edwin Donald 11-02-2023 Cholesterol in HDL [Mass/Vol] 50 mg/dL >40 [facility] Comment on above: The drugs N-Acetylcy steine and Metamizole may falsely depress this assay. Reference Range HDL <40 mg/dL Low HDL Cholesterol HDL >or= 60 mg/dL High HDL Cholesterol Serum or plasma cholesterol in VLDL measurement (mass/volume)Ordered By: Edwin Donald 11-02-2023 Cholesterol in VLDL [Mass/Vol] 25 mg/dL 5-40 [facility] Serum or plasma creatinine m easurement (mass/volume)Ordered By: Edwin Donald 11-02-2023 Creatinine [Mass/Vol] 1.10 mg/dL 0.70-1.30 [facility] Comment on above: The validity of the calculated GFR & GFRAA in patients over 70 years has not been determined. Clinical correlation is essential. Serum or plasma low density lipoprotein (LDL) cholesterol measurement (mass/volume)Ordered By: Edwin Donald 11-02-2023 Cholesterol in LDL [Mass/Vol] 84 mg/dL 0-130 [facility] Serum or plasma urea nitroge n measurement (mass/volume)Ordered By: Edwin Donald 11-02-2023 Urea nitrogen [Mass/Vol] 16 mg/dL 7-18 [facility] Thin prep Papanicolaou smear with manual screeningOrdered By: Edwin Donald on 11-02-2023 Thin prep Papanicolaou smear with manual screening 24 U/L 15-37 [facility] Thin prep Papanicolaou smear with manual screening 6 5-15 [facility] Absolute lymphocyte countOrd ered By: Benita Peoples on 09-04-2023 Lymphocytes Auto (Unsp spec) [#/Vol] 2.78 10*3/uL 0.83-4.51 [facility] Basophil percentageOrdered B y: Benita Peoples on 09-04-2023 Basophils/100 WBC (Bld) 1.0 % 0-1 [facility] Chloride [Moles/Vol] 109 mmol/L 98-107 [facility] Eosinophils/100 WBC (Bld) 3.3 % 0-5 [facility] Glucose [Mass/Vol] 138 mg/dL 74-106 [facility] Comment on above: Fasting Glucose resu lt greater than or equal to 126 mg/dL suggests DIABETES MELLITUS per A.D.A. criteria. Neutrophils (Bld) [#/Vol] 2.3 10*3/uL 2.0-7.7 [facility] Neutrophils/100 WBC (Bld) 40.2 % 47-70 [facility] Potassium [Moles/Vol] 3.9 mmol/L 3.5-5.1 [facility] Sodium [Moles/Vol] 141 mmol/L 136-145 [facility] WBC (Bld) [#/Vol] 5.8 10*3/uL 4.4-11.0 [facility] Blood erythrocytes count (nu mber/volume)Ordered By: Benita Peoples on 09-04-2023 RBC (Bld) [#/Vol] 4.94 10*6/uL 4.6-6.2 [facility] Blood hemoglobin measurement (mass/volume)Ordered By: Benita Peoples on 09-04-2023 Hemoglobin (Bld) [Mass/Vol] 14.4 g/dL 13.0-16.5 [facility] Blood lymphocytes/100 leukoc ytesOrdered By: Benita Peoples on 09-04-2023 Lymphocytes/100 WBC (Bld) 48.3 % 19-41 [facility] Blood monocytes/100 leukocyt esOrdered By: Benita Peoples on 09-04-2023 Monocytes/100 WBC (Bld) 7.0 % 0-10 [facility] Blood platelet mean volumeOr dered By: Benita Peoples on 09-04-2023 Platelet mean volume (Bld) [Entitic vol] 10.1 fL 6.2-12.0 [facility] Determination of erythrocyte mean corpuscular volume (MCV)Ordered By: Benita Peoples on 09-04-2023 MCV (RBC) [Entitic vol] 87.4 fL 80-94 [facility] Hematocrit Auto (Bld) [Volum e fraction]Ordered By: Benita Peoples on 09-04-2023 Hematocrit (Bld) [Volume fraction] 43.2 % 40-54 [facility] INR in Blood by Coagulation assayOrdered By: Benita Peoples on 09-04-2023 INR Coag (Bld) [Relative time] 1.0 {INR} [facility] Laboratory - Chemistry and C hemistry - challengeOrdered By: Benita Peoples on 09-04-2023 CO2 [Moles/Vol] 28.0 mmol/L 21.0-32.0 [facility] Urea nitrogen/Creatinine [Mass ratio] 13.0 mg/mg 10-20 [facility] Laboratory - CoagulationOrde red By: Benita Peoples on 09-04-2023 aPTT Coag (Bld) [Time] 26.9 s 24.1-36.2 [facility] PT Coag (PPP) [Time] 13.6 s 11.7-14.9 [facility] Laboratory - Hematology and Cell countsOrdered By: Benita Peoples on 09-04-2023 Erythrocyte distribution width (RBC) [Entitic vol] 42.0 fL 35.1-43.9 [facility] Erythrocyte distribution width (RBC) [Ratio] 13.0 % 11.6-14.6 [facility] Immature granulocytes/100 WBC (Bld) 0.200 % 0.0-0.9 [facility] Comment on above: IG% - Immature Granu locytes (promyelocytes, myelocytes and metamyelocytes) > 1% indicates that a LEFT SHIFT is Present. MCH (RBC) [Entitic mass] 29.1 pg 27.0-32.0 [facility] Nucleated RBC/100 WBC (Bld) [Ratio] 0 % 0-5 [facility] MCHC Auto (RBC) [Mass/Vol]Or dered By: Benita Peoples on 09-04-2023 MCHC (RBC) [Mass/Vol] 33.3 g/dL 32-36 [facility] No Panel InformationOrdered By: Benita Peoples on 09-04-2023 Estimated Creatinine Clearance Calc 60.88 ml/min [facility] Estimated GFR (MDRD) Amer 70 mL/min >60 [facility] Comment on above: GFR Calc Estimated GFR (MDRD) Non-Af Amer 58 mL/min >60 [facility] Comment on above: Non- GFR Calc Platelets bldOrdered By: Marjan Peoples on 09-04-2023 Platelets (Bld) [#/Vol] 193 10*3/uL 150-450 [facility] Serum or plasma calcium jayne urement (mass/volume)Ordered By: Benita Peoples on 09-04-2023 Calcium [Mass/Vol] 9.1 mg/dL 8.5-10.1 [facility] Serum or plasma creatinine m easurement (mass/volume)Ordered By: Benita Peoples on 09-04-2023 Creatinine [Mass/Vol] 1.31 mg/dL 0.70-1.30 [facility] Comment on above: The validity of the calculated GFR & GFRAA in patients over 70 years has not been determined. Clinical correlation is essential. Serum or plasma urea nitroge n measurement (mass/volume)Ordered By: Benita Peoples on 09-04-2023 Urea nitrogen [Mass/Vol] 17 mg/dL 7-18 [facility] Thin prep Papanicolaou smear with manual screeningOrdered By: Benita Peoples on 09-04-2023 Thin prep Papanicolaou smear with manual screening 4 5-15 [facility] Absolute lymphocyte countOrd ered By: Marcellus Cobos on 05-23-2023 Lymphocytes Auto (Unsp spec) [#/Vol] 3.14 10*3/uL 0.83-4.51 [facility] Basophil percentageOrdered B y: Marcellus Cobos on 05-23-2023 Basophils/100 WBC (Bld) 0.9 % 0-1 [facility] Bilirubin [Mass/Vol] 0.40 mg/dL 0.20-1.00 [facility] Comment on above: For patients on eltr ombopag therapy, use of Dimension [place] TBIL is not recommended. Chloride [Moles/Vol] 109 mmol/L 98-107 [facility] Cholesterol [Mass/Vol] 170 mg/dL <200 [facility] Comment on above: <200 mg/dL Desirable 200-240 mg/dL Borderline >240 mg/dL High Risk Eosinophils/100 WBC (Bld) 2.7 % 0-5 [facility] Glucose [Mass/Vol] 101 mg/dL 74-106 [facility] Comment on above: Fasting Glucose resu lt from 100 to 125 mg/dL suggests IMPAIRED HOMEOSTASIS per A.D.A. criteria. LDH [Catalytic activity/Vol] 164 U/L 87-241 [facility] Neutrophils (Bld) [#/Vol] 2.8 10*3/uL 2.0-7.7 [facility] Neutrophils/100 WBC (Bld) 42.8 % 47-70 [facility] Potassium [Moles/Vol] 4.3 mmol/L 3.5-5.1 [facility] Protein [Mass/Vol] 7.3 g/dL 6.4-8.2 [facility] Sodium [Moles/Vol] 137 mmol/L 136-145 [facility] Triglyceride [Mass/Vol] 113 mg/dL <199 [facility] Comment on above: The drugs N-Acetylcy steine and Metamizole may falsely depress this assay.Serum Triglycerides Reference Interval Normal <150 mg/dL Borderline high 150 - 199 mg/dL High 200 - 499 mg/dL Very High > or = 500 mg/dL WBC (Bld) [#/Vol] 6.6 10*3/uL 4.4-11.0 [facility] Blood erythrocytes count (nu mber/volume)Ordered By: Marcellus Cobos on 05-23-2023 RBC (Bld) [#/Vol] 5.41 10*6/uL 4.6-6.2 [facility] Blood hemoglobin measurement (mass/volume)Ordered By: Marcellus Cobos on 05-23-2023 Hemoglobin (Bld) [Mass/Vol] 16.1 g/dL 13.0-16.5 [facility] Blood lymphocytes/100 leukoc ytesOrdered By: Marcellus Cobos on 05-23-2023 Lymphocytes/100 WBC (Bld) 47.8 % 19-41 [facility] Blood monocytes/100 leukocyt esOrdered By: Marcellus Cobos on 05-23-2023 Monocytes/100 WBC (Bld) 5.6 % 0-10 [facility] Blood platelet mean volumeOr dered By: Mracellus Chandrika on 05-23-2023 Platelet mean volume (Bld) [Entitic vol] 10.1 fL 6.2-12.0 [facility] Determination of erythrocyte mean corpuscular volume (MCV)Ordered By: Marcellus Cobos on 05-23-2023 MCV (RBC) [Entitic vol] 88.5 fL 80-94 [facility] Hematocrit Auto (Bld) [Volum e fraction]Ordered By: Marcellus Cobos on 05-23-2023 Hematocrit (Bld) [Volume fraction] 47.9 % 40-54 [facility] Laboratory - Chemistry and C hemistry - challengeOrdered By: [facility] on 05-23-2023 ALP [Catalytic activity/Vol] 71 U/L 45-117 [facility] ALT [Catalytic activity/Vol] 27 U/L 16-61 [facility] CO2 [Moles/Vol] 21.0 mmol/L 21.0-32.0 [facility] Globulin (S) [Mass/Vol] 3.6 g/dL 2.2-4.2 [facility] Urea nitrogen/Creatinine [Mass ratio] 20.1 mg/mg 10-20 [facility] Laboratory - Hematology and Cell countsOrdered By: Marcellus Chandrika on 05-23-2023 Erythrocyte distribution width (RBC) [Entitic vol] 41.7 fL 35.1-43.9 [facility] Erythrocyte distribution width (RBC) [Ratio] 12.9 % 11.6-14.6 [facility] Immature granulocytes/100 WBC (Bld) 0.200 % 0.0-0.9 [facility] Comment on above: IG% - Immature Granu locytes (promyelocytes, myelocytes and metamyelocytes) > 1% indicates that a LEFT SHIFT is Present. MCH (RBC) [Entitic mass] 29.8 pg 27.0-32.0 [facility] Nucleated RBC/100 WBC (Bld) [Ratio] 0 % 0-5 [facility] MCHC Auto (RBC) [Mass/Vol]Or dered By: Marcellus Cobos on 05-23-2023 MCHC (RBC) [Mass/Vol] 33.6 g/dL 32-36 [facility] No Panel InformationOrdered By: Marcellus Cobos on 05-23-2023 Vitamin D 25-Hydroxy 45.3 ng/mL [facility] Comment on above: Vitamin D 25(OH) Sta tus Range Deficiency <20 ng/mL (50nmol/L) Insufficiency 20 - 30 ng/mL (50 - 75 nmol/L) Sufficiency 30 - 100 ng/mL (75 - 250 nmol/L) Toxicity >100 ng/mL (>250 nmol/L) Estimated GFR (MDRD) Amer 97 mL/min >60 [facility] Comment on above: GFR Calc Estimated GFR (MDRD) Non-Af Amer 80 mL/min >60 [facility] Comment on above: Non- GFR Calc Prostate Specific Antigen Screen < 0.01 ng/mL 0.00-4.00 [facility] Comment on above: This test was perfor med using the TPSA assay method for the[facility] chemistry system. Values obtained with differentassay methods cannot be used interchangably.When changing PSA assays in the course of monitoring apatient, additional sequential testing should be carriedout to confirm baseline values. Thyroid Stimulating Hormone (TSH) 4.48 uIU/mL 0.358-3.74 [facility] Platelets bldOrdered By: David Cobos on 05-23-2023 Platelets (Bld) [#/Vol] 238 10*3/uL 150-450 [facility] Serum or plasma albumin jayne urement (mass/volume)Ordered By: Marcellus Cobos on 05-23-2023 Albumin [Mass/Vol] 3.7 g/dL 3.2-5.0 [facility] Serum or plasma albumin/glob ulin mass ratioOrdered By: Marcellus Cobos on 05-23-2023 Albumin/Globulin [Mass ratio] 1.0 {ratio} 0.9-2.4 [facility] Serum or plasma calcium jayne urement (mass/volume)Ordered By: Marcellus Cobos on 05-23-2023 Calcium [Mass/Vol] 8.5 mg/dL 8.5-10.1 [facility] Serum or plasma carcinoembry onic antigen measurement (mass/volume)Ordered By: Marcellus Cobos on 05-23-2023 Carcinoembryonic Ag [Mass/Vol] ng/mL 0.0-4.7 [facility] Comment on above: Nonsmokers <3.9 Smok ers <5.6[employer] Electrochemiluminescence Immunoassay(ECLIA)Values obtained with different assay methods or kitscannot be used interchangeably. Results cannot beinterpreted as absolute evidence of the presence orabsence of malignant disease.Performed at: [employer] [id number] Director: Bart Martin PhD, Phone: [phone] Serum or plasma cholesterol in HDL measurement (mass/volume)Ordered By: Marcellus Cobos on 05-23-2023 Cholesterol in HDL [Mass/Vol] 60 mg/dL >40 [facility] Comment on above: The drugs N-Acetylcy steine and Metamizole may falsely depress this assay. Reference Range HDL <40 mg/dL Low HDL Cholesterol HDL >or= 60 mg/dL High HDL Cholesterol Serum or plasma cholesterol in VLDL measurement (mass/volume)Ordered By: Marcellus Cobos on 05-23-2023 Cholesterol in VLDL [Mass/Vol] 23 mg/dL 5-40 [facility] Serum or plasma creatinine m easurement (mass/volume)Ordered By: Marcellus Cobos on 05-23-2023 Creatinine [Mass/Vol] 1.00 mg/dL 0.70-1.30 [facility] Comment on above: The validity of the calculated GFR & GFRAA in patients over 70 years has not been determined. Clinical correlation is essential. Serum or plasma low density lipoprotein (LDL) cholesterol measurement (mass/volume)Ordered By: Marcellus Cobos on 05-23-2023 Cholesterol in LDL [Mass/Vol] 87 mg/dL 0-130 [facility] Serum or plasma urea nitroge n measurement (mass/volume)Ordered By: Marcellus Cobos on 05-23-2023 Urea nitrogen [Mass/Vol] 20 mg/dL 7-18 [facility] Thin prep Papanicolaou smear with manual screeningOrdered By: Marcellus Cobos on 05-23-2023 Thin prep Papanicolaou smear with manual screening 17 U/L 15-37 [facility] Thin prep Papanicolaou smear with manual screening 7 5-15 [facility] Absolute lymphocyte counton 11-01-2022 Lymphocytes Auto (Unsp spec) [#/Vol] 2.28 10*3/uL 0.83-4.51 [facility] Work Phone: Basophil percentageon 2021 Basophils/100 WBC (Bld) 0.9 % 0-1 [facility] Work Phone: Bilirubin [Mass/Vol] 0.40 mg/dL 0.20-1.00 [facility] Work Phone: Comment on above: For patients on eltr ombopag therapy, use of Dimension [place] TBIL is not recommended. Chloride [Moles/Vol] 108 mmol/L 98-107 [facility] Work Phone: Eosinophils/100 WBC (Bld) 2.7 % 0-5 [facility] Work Phone: Glucose [Mass/Vol] 85 mg/dL 74-106 [facility] Work Phone: Neutrophils (Bld) [#/Vol] 2.9 10*3/uL 2.0-7.7 [facility] Work Phone: Neutrophils/100 WBC (Bld) 49.2 % 47-70 [facility] Work Phone: Potassium [Moles/Vol] 3.9 mmol/L 3.5-5.1 [facility] Work Phone: Protein [Mass/Vol] 6.7 g/dL 6.4-8.2 [facility] Work Phone: Sodium [Moles/Vol] 141 mmol/L 136-145 [facility] Work Phone: WBC (Bld) [#/Vol] 5.9 10*3/uL 4.4-11.0 [facility] Work Phone: Blood erythrocytes count (nu mber/volume)on 11-01-2022 RBC (Bld) [#/Vol] 4.89 10*6/uL 4.6-6.2 [facility] Work Phone: Blood hemoglobin measurement (mass/volume)on 11-01-2022 Hemoglobin (Bld) [Mass/Vol] 14.2 g/dL 13.0-16.5 [facility] Work Phone: Blood lymphocytes/100 leukoc yteson 11-01-2022 Lymphocytes/100 WBC (Bld) 39.0 % 19-41 [facility] Work Phone: Blood monocytes/100 leukocyt eson 11-01-2022 Monocytes/100 WBC (Bld) 7.9 % 0-10 [facility] Work Phone: Blood platelet mean volumeon 11-01-2022 Platelet mean volume (Bld) [Entitic vol] 10.4 fL 6.2-12.0 [facility] Work Phone: Determination of erythrocyte mean corpuscular volume (MCV)on 11-01-2022 MCV (RBC) [Entitic vol] 89.0 fL 80-94 [facility] Work Phone: Hematocrit Auto (Bld) [Volum e fraction]on 11-01-2022 Hematocrit (Bld) [Volume fraction] 43.5 % 40-54 [facility] Work Phone: Laboratory - Chemistry and C hemistry - challengeon 11-01-2022 ALP [Catalytic activity/Vol] 63 U/L 45-117 [facility] Work Phone: ALT [Catalytic activity/Vol] 34 U/L 16-61 [facility] Work Phone: CO2 [Moles/Vol] 25.0 mmol/L 21.0-32.0 [facility] Work Phone: Globulin (S) [Mass/Vol] 2.9 g/dL 2.2-4.2 [facility] Work Phone: Urea nitrogen/Creatinine [Mass ratio] 18.9 mg/mg 10-20 [facility] Work Phone: Laboratory - Hematology and Cell countson 11-01-2022 Erythrocyte distribution width (RBC) [Entitic vol] 41.6 fL 35.1-43.9 [facility] Work Phone: Erythrocyte distribution width (RBC) [Ratio] 12.8 % 11.6-14.6 [facility] Work Phone: Immature granulocytes/100 WBC (Bld) 0.300 % 0.0-0.9 [facility] Work Phone: Comment on above: IG% - Immature Granu locytes (promyelocytes, myelocytes and metamyelocytes) > 1% indicates that a LEFT SHIFT is Present. MCH (RBC) [Entitic mass] 29.0 pg 27.0-32.0 [facility] Work Phone: Nucleated RBC/100 WBC (Bld) [Ratio] 0 % 0-5 [facility] Work Phone: MCHC Auto (RBC) [Mass/Vol]on 11-01-2022 MCHC (RBC) [Mass/Vol] 32.6 g/dL 32-36 [facility] Work Phone: No Panel Informationon 11-01 Estimated GFR (MDRD) Amer 117 mL/min >60 [facility] Work Phone: Comment on above: GFR Calc Estimated GFR (MDRD) Non-Af Amer 96 mL/min >60 [facility] Work Phone: Comment on above: Non- GFR Calc Thyroid Stimulating Hormone (TSH) 2.49 uIU/mL 0.358-3.74 [facility] Work Phone: Vitamin D 25-Hydroxy 27.2 ng/mL [facility] Work Phone: Comment on above: Vitamin D 25(OH) Sta tus Range Deficiency <20 ng/mL (50nmol/L) Insufficiency 20 - 30 ng/mL (50 - 75 nmol/L) Sufficiency 30 - 100 ng/mL (75 - 250 nmol/L) Toxicity >100 ng/mL (>250 nmol/L) Platelets bldon 11-01-2022 Platelets (Bld) [#/Vol] 220 10*3/uL 150-450 [facility] Work Phone: Serum or plasma albumin jayne urement (mass/volume)on 11-01-2022 Albumin [Mass/Vol] 3.8 g/dL 3.2-5.0 [facility] Work Phone: Serum or plasma albumin/glob ulin mass ratioon 11-01-2022 Albumin/Globulin [Mass ratio] 1.3 {ratio} 0.9-2.4 [facility] Work Phone: Serum or plasma calcium jayne urement (mass/volume)on 11-01-2022 Calcium [Mass/Vol] 8.6 mg/dL 8.5-10.1 [facility] Work Phone: Serum or plasma creatinine m easurement (mass/volume)on 11-01-2022 Creatinine [Mass/Vol] 0.85 mg/dL 0.70-1.30 [facility] Work Phone: Comment on above: The validity of the calculated GFR & GFRAA in patients over 70 years has not been determined. Clinical correlation is essential. Serum or plasma urea nitroge n measurement (mass/volume)on 11-01-2022 Urea nitrogen [Mass/Vol] 16 mg/dL 7-18 [facility] Work Phone: Thin prep Papanicolaou smear with manual screeningon 11-01-2022 Thin prep Papanicolaou smear with manual screening 18 U/L 15-37 [facility] Work Phone: Thin prep Papanicolaou smear with manual screening 8 5-15 [facility] Work Phone: Absolute lymphocyte counton 05-03-2022 Lymphocytes Auto (Unsp spec) [#/Vol] 1.78 10*3/uL 0.83-4.51 [facility] Work Phone: Basophil percentageon 2021 Basophils/100 WBC (Bld) 1.5 % 0-1 [facility] Work Phone: Bilirubin [Mass/Vol] 0.50 mg/dL 0.20-1.00 [facility] Work Phone: Comment on above: For patients on eltr ombopag therapy, use of Dimension [place] TBIL is not recommended. Chloride [Moles/Vol] 109 mmol/L 98-107 [facility] Work Phone: Eosinophils/100 WBC (Bld) 2.9 % 0-5 [facility] Work Phone: Glucose [Mass/Vol] 102 mg/dL 74-106 [facility] Work Phone: Comment on above: Fasting Glucose resu lt from 100 to 125 mg/dL suggests IMPAIRED HOMEOSTASIS per A.D.A. criteria. Neutrophils (Bld) [#/Vol] 1.9 10*3/uL 2.0-7.7 [facility] Work Phone: Neutrophils/100 WBC (Bld) 45.6 % 47-70 [facility] Work Phone: Potassium [Moles/Vol] 4.3 mmol/L 3.5-5.1 [facility] Work Phone: Protein [Mass/Vol] 6.9 g/dL 6.4-8.2 [facility] Work Phone: Sodium [Moles/Vol] 139 mmol/L 136-145 [facility] Work Phone: WBC (Bld) [#/Vol] 4.1 10*3/uL 4.4-11.0 [facility] Work Phone: Blood erythrocytes count (nu mber/volume)on 05-03-2022 RBC (Bld) [#/Vol] 4.89 10*6/uL 4.6-6.2 [facility] Work Phone: Blood hemoglobin measurement (mass/volume)on 05-03-2022 Hemoglobin (Bld) [Mass/Vol] 14.3 g/dL 13.0-16.5 [facility] Work Phone: Blood lymphocytes/100 leukoc yteson 05-03-2022 Lymphocytes/100 WBC (Bld) 43.2 % 19-41 [facility] Work Phone: Blood monocytes/100 leukocyt eson 05-03-2022 Monocytes/100 WBC (Bld) 6.3 % 0-10 [facility] Work Phone: Blood platelet mean volumeon 05-03-2022 Platelet mean volume (Bld) [Entitic vol] 10.9 fL 6.2-12.0 [facility] Work Phone: Determination of erythrocyte mean corpuscular volume (MCV)on 05-03-2022 MCV (RBC) [Entitic vol] 88.8 fL 80-94 [facility] Work Phone: Hematocrit Auto (Bld) [Volum e fraction]on 05-03-2022 Hematocrit (Bld) [Volume fraction] 43.4 % 40-54 [facility] Work Phone: Laboratory - Chemistry and C hemistry - challengeon 05-03-2022 ALP [Catalytic activity/Vol] 69 U/L 45-117 [facility] Work Phone: ALT [Catalytic activity/Vol] 33 U/L 16-61 [facility] Work Phone: CO2 [Moles/Vol] 25.0 mmol/L 21.0-32.0 [facility] Work Phone: Globulin (S) [Mass/Vol] 2.9 g/dL 2.2-4.2 [facility] Work Phone: Urea nitrogen/Creatinine [Mass ratio] 16.5 mg/mg 10-20 [facility] Work Phone: Laboratory - Hematology and Cell countson 05-03-2022 Erythrocyte distribution width (RBC) [Entitic vol] 42.9 fL 35.1-43.9 [facility] Work Phone: Erythrocyte distribution width (RBC) [Ratio] 13.1 % 11.6-14.6 [facility] Work Phone: Immature granulocytes/100 WBC (Bld) 0.500 % 0.0-0.9 [facility] Work Phone: Comment on above: IG% - Immature Granu locytes (promyelocytes, myelocytes and metamyelocytes) > 1% indicates that a LEFT SHIFT is Present. MCH (RBC) [Entitic mass] 29.2 pg 27.0-32.0 [facility] Work Phone: Nucleated RBC/100 WBC (Bld) [Ratio] 0 % 0-5 [facility] Work Phone: MCHC Auto (RBC) [Mass/Vol]on 05-03-2022 MCHC (RBC) [Mass/Vol] 32.9 g/dL 32-36 [facility] Work Phone: No Panel Informationon 05-03 Estimated GFR (MDRD) Amer 108 mL/min >60 [facility] Work Phone: Comment on above: GFR Calc Estimated GFR (MDRD) Non-Af Amer 89 mL/min >60 [facility] Work Phone: Comment on above: Non- GFR Calc Thyroid Stimulating Hormone (TSH) 2.04 uIU/mL 0.358-3.74 [facility] Work Phone: Vitamin D 25-Hydroxy 35.4 ng/mL [facility] Work Phone: Comment on above: Vitamin D 25(OH) Sta tus Range Deficiency <20 ng/mL (50nmol/L) Insufficiency 20 - 30 ng/mL (50 - 75 nmol/L) Sufficiency 30 - 100 ng/mL (75 - 250 nmol/L) Toxicity >100 ng/mL (>250 nmol/L) Platelets bldon 05-03-2022 Platelets (Bld) [#/Vol] 204 10*3/uL 150-450 [facility] Work Phone: Serum or plasma albumin jayne urement (mass/volume)on 05-03-2022 Albumin [Mass/Vol] 4.0 g/dL 3.2-5.0 [facility] Work Phone: Serum or plasma albumin/glob ulin mass ratioon 05-03-2022 Albumin/Globulin [Mass ratio] 1.4 {ratio} 0.9-2.4 [facility] Work Phone: Serum or plasma calcium jayne urement (mass/volume)on 05-03-2022 Calcium [Mass/Vol] 8.6 mg/dL 8.5-10.1 [facility] Work Phone: Serum or plasma creatinine m easurement (mass/volume)on 05-03-2022 Creatinine [Mass/Vol] 0.91 mg/dL 0.70-1.30 [facility] Work Phone: Comment on above: The validity of the calculated GFR & GFRAA in patients over 70 years has not been determined. Clinical correlation is essential. Serum or plasma urea nitroge n measurement (mass/volume)on 05-03-2022 Urea nitrogen [Mass/Vol] 15 mg/dL 7-18 [facility] Work Phone: Thin prep Papanicolaou smear with manual screeningon 05-03-2022 Thin prep Papanicolaou smear with manual screening 32 U/L 15-37 [facility] Work Phone: Thin prep Papanicolaou smear with manual screening 5 5-15 [facility] Work Phone: Absolute lymphocyte counton 04-15-2022 Lymphocytes Auto (Unsp spec) [#/Vol] 2.36 10*3/uL 0.83-4.51 [facility] Work Phone: Basophil percentageon 2021 Basophils/100 WBC (Bld) 0.9 % 0-1 [facility] Work Phone: Bilirubin [Mass/Vol] 0.50 mg/dL 0.20-1.00 [facility] Work Phone: Comment on above: For patients on eltr ombopag therapy, use of Dimension [place] TBIL is not recommended. Chloride [Moles/Vol] 111 mmol/L 98-107 [facility] Work Phone: Eosinophils/100 WBC (Bld) 3.9 % 0-5 [facility] Work Phone: Glucose [Mass/Vol] 121 mg/dL 74-106 [facility] Work Phone: Comment on above: Fasting Glucose resu lt from 100 to 125 mg/dL suggests IMPAIRED HOMEOSTASIS per A.D.A. criteria. Neutrophils (Bld) [#/Vol] 2.6 10*3/uL 2.0-7.7 [facility] Work Phone: Neutrophils/100 WBC (Bld) 45.9 % 47-70 [facility] Work Phone: Potassium [Moles/Vol] 4.2 mmol/L 3.5-5.1 [facility] Work Phone: Protein [Mass/Vol] 6.9 g/dL 6.4-8.2 [facility] Work Phone: Sodium [Moles/Vol] 142 mmol/L 136-145 [facility] Work Phone: WBC (Bld) [#/Vol] 5.6 10*3/uL 4.4-11.0 [facility] Work Phone: Blood erythrocytes count (nu mber/volume)on 04-15-2022 RBC (Bld) [#/Vol] 4.84 10*6/uL 4.6-6.2 [facility] Work Phone: Blood hemoglobin measurement (mass/volume)on 04-15-2022 Hemoglobin (Bld) [Mass/Vol] 14.2 g/dL 13.0-16.5 [facility] Work Phone: Blood lymphocytes/100 leukoc yteson 04-15-2022 Lymphocytes/100 WBC (Bld) 42.0 % 19-41 [facility] Work Phone: Blood monocytes/100 leukocyt eson 04-15-2022 Monocytes/100 WBC (Bld) 7.1 % 0-10 [facility] Work Phone: Blood platelet mean volumeon 04-15-2022 Platelet mean volume (Bld) [Entitic vol] 10.2 fL 6.2-12.0 [facility] Work Phone: Determination of erythrocyte mean corpuscular volume (MCV)on 04-15-2022 MCV (RBC) [Entitic vol] 87.4 fL 80-94 [facility] Work Phone: Hematocrit Auto (Bld) [Volum e fraction]on 04-15-2022 Hematocrit (Bld) [Volume fraction] 42.3 % 40-54 [facility] Work Phone: Laboratory - Chemistry and C hemistry - challengeon 04-15-2022 ALP [Catalytic activity/Vol] 69 U/L 45-117 [facility] Work Phone: ALT [Catalytic activity/Vol] 29 U/L 16-61 [facility] Work Phone: CO2 [Moles/Vol] 24.0 mmol/L 21.0-32.0 [facility] Work Phone: Globulin (S) [Mass/Vol] 3.2 g/dL 2.2-4.2 [facility] Work Phone: Urea nitrogen/Creatinine [Mass ratio] 17.4 mg/mg 10-20 [facility] Work Phone: Laboratory - Hematology and Cell countson 04-15-2022 Erythrocyte distribution width (RBC) [Entitic vol] 41.2 fL 35.1-43.9 [facility] Work Phone: Erythrocyte distribution width (RBC) [Ratio] 13.0 % 11.6-14.6 [facility] Work Phone: Immature granulocytes/100 WBC (Bld) 0.200 % 0.0-0.9 [facility] Work Phone: Comment on above: IG% - Immature Granu locytes (promyelocytes, myelocytes and metamyelocytes) > 1% indicates that a LEFT SHIFT is Present. MCH (RBC) [Entitic mass] 29.3 pg 27.0-32.0 [facility] Work Phone: Nucleated RBC/100 WBC (Bld) [Ratio] 0 % 0-5 [facility] Work Phone: MCHC Auto (RBC) [Mass/Vol]on 04-15-2022 MCHC (RBC) [Mass/Vol] 33.6 g/dL 32-36 [facility] Work Phone: No Panel Informationon 04-15 Estimated GFR (MDRD) Amer 99 mL/min >60 [facility] Work Phone: Comment on above: GFR Calc Estimated GFR (MDRD) Non-Af Amer 82 mL/min >60 [facility] Work Phone: Comment on above: Non- GFR Calc Prostate Specific Antigen Total < 0.01 ng/mL 0.0-4.0 [facility] Work Phone: Comment on above: This test was perfor med using the TPSA assay method for [employer] chemistry system. Values obtained with differentassay methods cannot be used interchangably.When changing PSA assays in the course of monitoring apatient, additional sequential testing should be carriedout to confirm baseline values. Platelets bldon 04-15-2022 Platelets (Bld) [#/Vol] 201 10*3/uL 150-450 [facility] Work Phone: Serum or plasma albumin jayne urement (mass/volume)on 04-15-2022 Albumin [Mass/Vol] 3.7 g/dL 3.2-5.0 [facility] Work Phone: Serum or plasma albumin/glob ulin mass ratioon 04-15-2022 Albumin/Globulin [Mass ratio] 1.2 {ratio} 0.9-2.4 [facility] Work Phone: Serum or plasma calcium jayne urement (mass/volume)on 04-15-2022 Calcium [Mass/Vol] 8.8 mg/dL 8.5-10.1 [facility] Work Phone: Serum or plasma carcinoembry onic antigen measurement (mass/volume)on 04-15-2022 Carcinoembryonic Ag [Mass/Vol] 0.5 ng/mL [facility] Work Phone: Comment on above: Nonsmokers <3.9 Smok ers <5.6[employer] Electrochemiluminescence Immunoassay(ECLIA)Values obtained with different assay methods or kitscannot be used interchangeably. Results cannot beinterpreted as absolute evidence of the presence orabsence of malignant disease.Performed at: [employer] [id number] Director: Bart Martin PhD, Phone: [phone] Serum or plasma creatinine m easurement (mass/volume)on 04-15-2022 Creatinine [Mass/Vol] 0.98 mg/dL 0.70-1.30 [facility] Work Phone: Comment on above: The validity of the calculated GFR & GFRAA in patients over 70 years has not been determined. Clinical correlation is essential. Serum or plasma urea nitroge n measurement (mass/volume)on 04-15-2022 Urea nitrogen [Mass/Vol] 17 mg/dL 7-18 [facility] Work Phone: Thin prep Papanicolaou smear with manual screeningon 04-15-2022 Thin prep Papanicolaou smear with manual screening 24 U/L 15-37 [facility] Work Phone: Thin prep Papanicolaou smear with manual screening 7 5-15 [facility] Work Phone: Thin prep Papanicolaou smear with manual screening 198 U/L 87-241 [facility] Work Phone: Basophil percentageon 2021 Chloride [Moles/Vol] 110 mmol/L 98-107 [facility] Work Phone: Glucose [Mass/Vol] 102 mg/dL 74-106 [facility] Work Phone: Comment on above: Fasting Glucose resu lt from 100 to 125 mg/dL suggests IMPAIRED HOMEOSTASIS per A.D.A. criteria. Potassium [Moles/Vol] 4.0 mmol/L 3.5-5.1 [facility] Work Phone: Sodium [Moles/Vol] 139 mmol/L 136-145 [facility] Work Phone: Laboratory - Chemistry and C hemistry - challengeon 01-05-2022 CO2 [Moles/Vol] 24.0 mmol/L 21.0-32.0 [facility] Work Phone: Urea nitrogen/Creatinine [Mass ratio] 18.7 mg/mg 10-20 [facility] Work Phone: No Panel Informationon 01-05 Estimated GFR (MDRD) Amer 101 mL/min >60 [facility] Work Phone: Comment on above: GFR Calc Estimated GFR (MDRD) Non-Af Amer 83 mL/min >60 [facility] Work Phone: Comment on above: Non- GFR Calc Serum or plasma calcium jayne urement (mass/volume)on 01-05-2022 Calcium [Mass/Vol] 9.0 mg/dL 8.5-10.1 [facility] Work Phone: Serum or plasma creatinine m easurement (mass/volume)on 01-05-2022 Creatinine [Mass/Vol] 0.96 mg/dL 0.70-1.30 [facility] Work Phone: Comment on above: The validity of the calculated GFR & GFRAA in patients over 70 years has not been determined. Clinical correlation is essential. Serum or plasma urea nitroge n measurement (mass/volume)on 01-05-2022 Urea nitrogen [Mass/Vol] 18 mg/dL 7-18 [facility] Work Phone: Thin prep Papanicolaou smear with manual screeningon 01-05-2022 Thin prep Papanicolaou smear with manual screening 5 5-15 [facility] Work Phone: Acetaminophenon 10-25-2018 Acetaminophen mass conc < 10.0 Normal 10.0-30.0 [facility] Comment on above: Performed By: #### H EMOG, CMP3, ETOH4, ACET4, SAL33, FT4M, TSH5 ####[facility] [employer] [id number] [place], [place] Comp Metabolic Panelon 10-25 ALT enzyme act/vol 42 U/L Normal 13-69 [facility] Comment on above: Performed By: #### H EMOG, CMP3, ETOH4, ACET4, SAL33, FT4M, TSH5 ####[facility] [employer] [id number] [place], [place] Calcium mass conc 9.5 mg/dL Normal 8.4-10.4 [facility] Comment on above: Performed By: #### H EMOG, CMP3, ETOH4, ACET4, SAL33, FT4M, TSH5 ####[facility] [employer] [place], [place] Glucose mass conc 98 mg/dL Normal 70-100 [facility] Comment on above: Performed By: #### H EMOG, CMP3, ETOH4, ACET4, SAL33, FT4M, TSH5 ####[facility] [employer] [id number] [place], [place] ALP enzyme act/vol 71 U/L Normal 38-126 [facility] Comment on above: Performed By: #### H EMOG, CMP3, ETOH4, ACET4, SAL33, FT4M, TSH5 ####[facility] [employer] [id number] [place], [place] Anion gap 3 molar conc 8 Normal [facility] Comment on above: Performed By: #### H EMOG, CMP3, ETOH4, ACET4, SAL33, FT4M, TSH5 ####[facility] [employer] [id number] [place], [place] AST enzyme act/vol 31 U/L Normal 15-46 [facility] Comment on above: Performed By: #### H EMOG, CMP3, ETOH4, ACET4, SAL33, FT4M, TSH5 ####[address] [place], [place] Bilirubin mass conc 0.4 mg/dL Normal 0.2-1.3 [facility] Comment on above: Performed By: #### H EMOG, CMP3, ETOH4, ACET4, SAL33, FT4M, TSH5 ####[address] [place], [place] CO2 molar conc 24 mmol/L Normal 22-30 [facility] Comment on above: Performed By: #### H EMOG, CMP3, ETOH4, ACET4, SAL33, FT4M, TSH5 ####[address] Creatinine mass conc 0.86 mg/dL Normal 0.52-1.25 [facility] Comment on above: Performed By: #### H EMOG, CMP3, ETOH4, ACET4, SAL33, FT4M, TSH5 ####[address] GFR/1.73 sq M predicted among blacks MDRD vol rate/area (S/P/Bld) mL/min/{1.73_m2} Normal >60 [facility] Comment on above: Performed By: #### H EMOG, CMP3, ETOH4, ACET4, SAL33, FT4M, TSH5 ####[address] [place], [place] GFR/1.73 sq M predicted among non-blacks MDRD vol rate/area (S/P/Bld) mL/min/{1.73_m2} Normal >60 [facility] Comment on above: Result Comment: Sour ce- MDRD equation with creatinine calibration to IDMS(NKDEP) eGFR not recommended for drug dose adjustment Performed By: #### H EMOG, CMP3, ETOH4, ACET4, SAL33, FT4M, TSH5 ####[address] [place], [place] Protein mass conc 7.5 g/dL Normal 6.3-8.2 [facility] Comment on above: Performed By: #### H EMOG, CMP3, ETOH4, ACET4, SAL33, FT4M, TSH5 ####[facility] [place], [place] Urea nitrogen mass conc 16 mg/dL Normal 7-20 [facility] Comment on above: Performed By: #### H EMOG, CMP3, ETOH4, ACET4, SAL33, FT4M, TSH5 ####[address] [place], [place] Potassium molar conc 4.2 mmol/L Normal 3.5-5.1 [facility] Comment on above: Performed By: #### H EMOG, CMP3, ETOH4, ACET4, SAL33, FT4M, TSH5 ####[address] [place], [place] Sodium molar conc 140 mmol/L Normal 137-145 [facility] Comment on above: Performed By: #### H EMOG, CMP3, ETOH4, ACET4, SAL33, FT4M, TSH5 ####[address] [place], [place] Albumin mass conc 4.7 g/dL Normal 3.5-5.0 [facility] Comment on above: Performed By: #### H EMOG, CMP3, ETOH4, ACET4, SAL33, FT4M, TSH5 ####[address] [place], [place] Chloride molar conc 108 mmol/L High 98-107 [facility] Comment on above: Performed By: #### H EMOG, CMP3, ETOH4, ACET4, SAL33, FT4M, TSH5 ####[address] [place], [place] Drugs of Abuseon 10-25-2018 Phencyclidine (PCP), Ur Negative Normal [facility] Comment on above: Result Comment: The expected value for all of the drugs listedabove is Negative.The following drugs or drug groups have been screenedfor by Immunoassay at the following thresholds:Amphetamine class (1000 ng/mL), Barbiturates (200 ng/mL),Benzodiazepines (200 ng/mL), Cocaine (300 ng/mL),Methadone (300 ng/mL), Opiates (300 ng/mL),Oxycodone (100 ng/mL), and PCP (25 ng/mL).NOTE: These results are for medical treatment only.Analysis performed using non-forensic procedures.POSITIVE results are NOT confirmed by a more specificalternative method unless requested. If confirmation isneeded, request confirmation under separate order. Performed By: #### U AMAC DRGA4 ####[address] [facility], [place] Opiates, Ur Negative Normal [facility] Comment on above: Performed By: #### U AMAC DRGA4 ####[address] [place] [address] Cocaine, Ur Negative Normal [facility] Comment on above: Performed By: #### U AMAC DRGA4 ####[address] [facility] [place] [place] Methadone, Ur Negative Normal [facility] Comment on above: Performed By: #### U AMAC, DRGA4 ####[id number] [facility] [place] [place] Benzodiazepines, Ur Positive Normal [facility] Comment on above: Performed By: #### U AMAC DRGA4 ####[facility] [id number] [place] [place] Amphetamines, Ur Negative Normal [facility] Comment on above: Performed By: #### U AMAC DRGA4 ####[facility] [id number] [place] [place] Barbiturates, Ur Negative Normal [facility] Comment on above: Performed By: #### U AMAC DRGA4 ####[address] [facility] [place] [place] Oxycodone/Oxymorphine ,Ur Positive Normal [facility] Comment on above: Performed By: #### U AMAC, DRGA4 ####[address] [place], [place] Ethanol Serum/Plasmaon 10-25 Ethanol-Serum/Plasma < 0.010 Normal 0.000-0 .01 0 [facility] Comment on above: Result Comment: NOTE : This result is for medical treatment only. Analysis performed using non-forensic procedures. Performed By: #### H EMOG, CMP3, ETOH4, ACET4, SAL33, FT4M, TSH5 ####[address] Free T4on 10-25-2018 T4 free mass conc 1.35 ng/dL Normal 0.78-2.19 [facility] Comment on above: Performed By: #### H EMOG, CMP3, ETOH4, ACET4, SAL33, FT4M, TSH5 ####[address] Hemogramon 10-25-2018 Erythrocyte distribution width Auto Ratio (RBC) 13.9 % Normal 11.5-14.5 [facility] Comment on above: Performed By: #### H EMOG, CMP3, ETOH4, ACET4, SAL33, FT4M, TSH5 ####[address] Hematocrit Auto Volume Fraction (Bld) 45.9 % Normal 40.0-52.0 [facility] Comment on above: Performed By: #### H EMOG, CMP3, ETOH4, ACET4, SAL33, FT4M, TSH5 ####[address] [place], [place] Hemoglobin mass conc (Bld) 15.7 g/dL Normal 13.0-18.0 [facility] Comment on above: Performed By: #### H EMOG, CMP3, ETOH4, ACET4, SAL33, FT4M, TSH5 ####[address] [place], [place] MCH Auto Entitic mass (RBC) 30.7 pg Normal 26.0-34.0 [facility] Comment on above: Performed By: #### H EMOG, CMP3, ETOH4, ACET4, SAL33, FT4M, TSH5 ####[address] [place], [place] MCHC Auto mass conc (RBC) 34.1 % Normal 32.0-36.0 [facility] Comment on above: Performed By: #### H EMOG, CMP3, ETOH4, ACET4, SAL33, FT4M, TSH5 ####[address] [place], [place] MCV Auto Entitic volume (RBC) 89.9 fL Normal 80.0-98.0 [facility] Comment on above: Performed By: #### H EMOG, CMP3, ETOH4, ACET4, SAL33, FT4M, TSH5 ####[address] [place], [place] Platelet mean volume Auto Entitic volume (Bld) 7.9 fL Normal 7.4-10.4 [facility] Comment on above: Performed By: #### H EMOG, CMP3, ETOH4, ACET4, SAL33, FT4M, TSH5 ####[address] [place], [place] Platelets Auto #/vol (Bld) 209 10*3/uL Normal 140-440 [facility] Comment on above: Performed By: #### H EMOG, CMP3, ETOH4, ACET4, SAL33, FT4M, TSH5 ####[address] [place], [place] RBC Auto #/vol (Bld) 5.11 10*6/uL Normal 4.40-5.90 [facility] Comment on above: Performed By: #### H EMOG, CMP3, ETOH4, ACET4, SAL33, FT4M, TSH5 ####[address] [place], [place] WBC Auto #/vol (Bld) 5.8 10*3/uL Normal 3.6-10.7 [facility] Comment on above: Performed By: #### H EMOG, CMP3, ETOH4, ACET4, SAL33, FT4M, TSH5 ####[address] [place], [place] Salicylateson 10-25-2018 Salicylates < 1.0 Normal 0.0-20.0 [facility] Comment on above: Performed By: #### H EMOG, CMP3, ETOH4, ACET4, SAL33, FT4M, TSH5 ####[address] [place], [place] Thyroid Stim. Hormoneon 09-28 Thyroid Stim. Hormone 2.118 u[IU]/mL Normal 0.46 5-4.68 0 [facility] Comment on above: Performed By: #### H EMOG, CMP3, ETOH4, ACET4, SAL33, FT4M, TSH5 ####[address] [place], [place] Urinalysis,Macroon 8 Appearance Clear Normal Clear [facility] Comment on above: Performed By: #### U AMAC, DRGA4 ####[facility] [employer] [id number] [place], [place] Color Yellow Normal Lt. Yellow [facility] Comment on above: Performed By: #### U AMAC, DRGA4 ####[facility] [employer] [address] Bilirubin,Ur Negative Normal Negative [facility] Comment on above: Performed By: #### U AMAC, DRGA4 ####[address] [place], [place] Glucose Ql (U) NORM Normal Negative [facility] Comment on above: Performed By: #### U AMAC, DRGA4 ####[address] [place], [place] Ketone,Urine Negative Normal Negative [facility] Comment on above: Performed By: #### U AMAC, DRGA4 ####[address] [place], [place] Leukocytes Negative Normal Negative [facility] Comment on above: Performed By: #### U AMAC, DRGA4 ####[address] [place], [place] Nitrites Negative Normal Negative [facility] Comment on above: Performed By: #### U AMAC, DRGA4 ####[address] [place], [place] Occult Blood,Ur Negative Normal Negative [facility] Comment on above: Performed By: #### U AMAC, DRGA4 ####[address] pH Test strip (U) 5.0 Normal 5.0-8.0 [facility] System Comment on above: Performed By: #### U AMAC, DRGA4 ####[address] Specific [place],Urine 1.020 Normal 1.005-1.03 0 [facility] Comment on above: Performed By: #### U AMAC, DRGA4 ####[address] Total Protein,Urine Negative Normal Negative [facility] Comment on above: Performed By: #### U AMAC, DRGA4 ####[address] Urobilinogen NORM Normal 0-1 [facility] Comment on above: Performed By: #### U AMAC, DRGA4 ####[address] [place], [place] OBSOLETEon 09-04-2017 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 SONNY: NoPatient last appointment: Visit date not foundPatient Phone numbers: [phone] (home)Request is for script(s) to be escript to pharmacy.Faby Beckett MAAllergies As of Date: 09/04/2017 Noted Allergy ReactionBETA BLOCKERS (BETA-BLOCKERS (BET*07/18/2014 8 - GI UpsetDate Reviewed: 05/09/2017Reviewed by: Leonardo Hughes - Fully AssessedReason for Visit: Refill Request [94]Order(s):oxybutynin (DITROPAN) 5 mg tabletTake 1 tablet by mouth three times daily.Disp: 90 tabletRfl: 11Prescriptions as of 09/04/2017 Sig: OXYBUTYNIN CHLORIDE 5 MG TABL* Take 1 tablet by mouth three * AMOXICILLIN 875 MG-POTASSIUM * BACLOFEN 10 MG TABLET AZITHROMYCIN 250 MG TABLET GABAPENTIN 100 MG CAPSULE GABAPENTIN 300 MG CAPSULE LACTULOSE 10 GRAM/15 ML ORAL * NAPROXEN 500 MG TABLET OXYCODONE-ACETAMINOPHEN 5 MG-* POLYETHYLENE GLYCOL 3350 17 G* PREDNISONE 10 MG TABLET RANITIDINE 150 MG TABLET TERBINAFINE HCL 250 MG TABLET TRAMADOL 50 MG TABLET FENTANYL 50 MCG/HR TRANSDERMA* Apply 1 Patch as directed camryn* TAMSULOSIN 0.4 MG CAPSULE Take 2 capsules by mouth maría* LOSARTAN 25 MG TABLET Take 25 mg by mouth twice janak* BUTRANS 10 MCG/HOUR TRANSDERM* Apply 1 Patch as directed onc* ALPRAZOLAM 0.5 MG TABLET Take 0.5 mg by mouth as neede* ONDANSETRON HCL 4 MG TABLET Take 4 mg by mouth as needed.Problem List As Of Date 09/04/2017 Noted Resolved Malaise and fatigue [R53.81, R53.83] INVALID FOR* Benign nodular prostatic hyperplasia with lower*INVALID FOR* Nocturia [R35.1] INVALID FOR* Colon cancer (HCC) [C18.9] INVALID FOR* Elevated prostate specific antigen (PSA) [R97.2*INVALID FOR* Prostate cancer (HCC) [C61] INVALID FOR* Blood clot in vein [I82.90] INVALID FOR* More... Essential hypertension [I10] INVALID FOR* Chronic pain [G89.29] INVALID FOR*Prescriptions ordered this encounter Disp Refills Start End OXYBUTYNIN CHLORIDE 5 MG TABLET 90 t* 11 09/04/2017 Route: ORAL Sig: Take 1 tablet by mouth three times daily.Medications Discontinued During This Encounter oxybutynin (DITROPAN) 5 mg tablet 90 t* 3 05/09/2017 09/04/2017 Route: ORAL Sig: Take 1 tablet by mouth three times daily. Disc: Reason for discontinue is not on file. Status:Closed by LEONARDO HUGHES MD on 09/04/17 [facility] Office Visit: colonoscopy co nsulton 08-02-2017 Documentation of current medications (procedure) Done Invalid Interpretation Code [facility] [employer] Work Phone: Fall risk assessment No Invalid Interpretation Code [facility] [employer] Work Phone: Tobacco smoking status NHIS Never Invalid Interpretation Code [facility] [employer] Work Phone: Tobacco use CPHS Never smoker Invalid Interpretation Code [facility] [employer] Work Phone: Lab Report: Carcinoembryonic Antigenon 12-20-2016 Carcinoembryonic antigen 1.3 ng/mL Invalid Interpretation Code 0.0-4.7 [facility] [employer] Work Phone: Lab Report: Comprehensive Il tabolic Profilon 12-19-2016 Alanine aminotransferase (ALT) 35 U/L Invalid Interpretation Code 12-78 [facility] [employer] Work Phone: Albumin 3.9 g/dL Invalid Interpretation Code 3.4-5.0 [facility] [employer] Work Phone: Albumin/Globulin Ratio 1.1 {ratio} Invalid Interpretation Code 0.9-2.4 [facility] [employer] Work Phone: Alkaline phosphatase (ALP) 72 U/L Invalid Interpretation Code 45-117 [facility] [employer] Work Phone: Anion gap 9 mmol/L Invalid Interpretation Code 5-15 [facility] [employer] Work Phone: Aspartate aminotransferase (AST) 17 U/L Invalid Interpretation Code 15-37 [facility] [employer] Work Phone: Bilirubin (total) 0.30 mg/dL Invalid Interpretation Code 0.20-1.00 [facility] [employer] Work Phone: BUN/Creatinine Ratio 13.2 RATIO Invalid Interpretation Code 10-20 [facility] [employer] Work Phone: Calcium 8.7 mg/dL Invalid Interpretation Code 8.5-10.1 [facility] [employer] Work Phone: Chloride 107 mmol/L Invalid Interpretation Code 98-107 [facility] [employer] Work Phone: CO2 25.0 mmol/L Invalid Interpretation Code 21.0-32.0 [facility] [employer] Work Phone: Creatinine 0.99 mg/dL Invalid Interpretation Code 0.70-1.30 [facility] [employer] Work Phone: eGFR (non-black) 100 mL/min/{1.73_m2} Invalid Interpretation Code >60 [facility] [employer] Work Phone: eGFR (non-black) 82 mL/min/{1.73_m2} Invalid Interpretation Code >60 [facility] [employer] Work Phone: Globulin 3.6 g/dL High 2.3-3.5 [facility] [employer] Work Phone: Glucose 88 mg/dL Invalid Interpretation Code 70-110 [facility] [employer] Work Phone: Potassium 3.9 mmol/L Invalid Interpretation Code 3.5-5.1 [facility] [employer] Work Phone: Protein 7.5 g/dL Invalid Interpretation Code 6.4-8.2 [facility] [employer] Work Phone: Sodium 141 mmol/L Invalid Interpretation Code 136-145 [facility] [employer] Work Phone: Urea nitrogen 13 mg/dL Invalid Interpretation Code 7-18 [facility] [employer] Work Phone: Lab Report: LDHon 12-19-2016 lactate dehydrogenase - serum 145 U/L Invalid Interpretation Code 87-241 [facility] [employer] Work Phone: Lab Report: Uric Acidon 11-28 Urate 4.5 mg/dL Invalid Interpretation Code 3.5-7.2 [facility] [employer] Work Phone: Replaced Document: (P) CBC W /Diff, Auto - EPLAB Onlyon 12-19-2016 Basophils/100 leukocytes 1.8 % High 0-1 [facility] [employer] Work Phone: Eosinophils/100 leukocytes 2.9 % Invalid Interpretation Code 0-5 [facility] [employer] Work Phone: Erythrocytes (RBC) 5.13 10*6/uL Invalid Interpretation Code 4.6-6.2 [facility] [employer] Work Phone: Hematocrit (HCT) 45.7 % Invalid Interpretation Code 40-54 [facility] [employer] Work Phone: Hemoglobin (HGB) 15.2 g/dL Invalid Interpretation Code 13.0-16.5 [facility] [employer] Work Phone: Lymphocytes 1.61 X10 3/UL Invalid Interpretation Code 0.83-4.51 [facility] [employer] Work Phone: Lymphocytes/100 leukocytes 30.8 % Invalid Interpretation Code 19-41 [facility] [employer] Work Phone: MCH 29.7 pg Invalid Interpretation Code 27.0-32.0 [facility] [employer] Work Phone: MCHC 33.3 g/dL Invalid Interpretation Code 32-36 [facility] [employer] Work Phone: MCV 89.0 fL Invalid Interpretation Code 80-94 [facility] [employer] Work Phone: Monocytes/100 leukocytes 7.6 % Invalid Interpretation Code 0-10 [facility] [employer] Work Phone: neutrophil count, blood 3.0 X10 3/UL Invalid Interpretation Code 2.0-7.7 [facility] [employer] Work Phone: Neutrophils/100 leukocytes 56.8 % Invalid Interpretation Code 47-70 [facility] [employer] Work Phone: Platelets 214 10*3/mm3 Invalid Interpretation Code 150-450 [facility] [employer] Work Phone: PMV by Manisha 6.3 fL Invalid Interpretation Code 6.2-12.0 [facility] [employer] Work Phone: RDW-CA 12.9 % Invalid Interpretation Code 11.6-14.6 [facility] [employer] Work Phone: WBC (Leukocytes) 5.2 10*3/uL Invalid Interpretation Code 4.4-11.0 [facility] [employer] Work Phone: Office Visit: colonoscopy co nsulton 07-18-2016 Colonoscopy (procedure) Colonoscopy (procedure) Invalid Interpretation Code [facility] [employer] Work Phone: Lab Report: Magnesiumon 01-27 Magnesium 2.2 mg/dL Invalid Interpretation Code 1.8-2.4 [facility] [employer] Work Phone: Lab Report: Lipid Profileon 01-19-2016 Cholesterol 248 mg/dL High 200 [facility] [employer] Work Phone: HDL Cholesterol 46 mg/dL Invalid Interpretation Code [facility] [employer] Work Phone: LDL Cholesterol Test not performed mg/dL Invalid Interpretation Code 0-130 [facility] [employer] Work Phone: Triglyceride 421 mg/dL High [facility] [employer] Work Phone: very low density lipoproteins Test not performed mg/dL Invalid Interpretation Code 5-40 [facility] [employer] Work Phone: Lab Report: Comprehensive Me tabolic Profilon 01-11-2016 Creatinine 87.50 mL/min Invalid Interpretation Code [facility] [employer] Work Phone: Lab Report: Phosphoruson Phosphorus Concentratation-Rando m 2.9 mg/dL Invalid Interpretation Code 2.5-4.9 [facility] [employer] Work Phone: Lab Report: Haptoglobinon Haptoglobin 172 mg/dL Invalid Interpretation Code 34-200 [facility] [employer] Work Phone: Lab Report: Protein Electrop h, Son 11-06-2015 Globulin . Invalid Interpretation Code [facility] [employer] Work Phone: lab comments Comment Invalid Interpretation Code . [facility] [employer] Work Phone: serum protein electrophoresis, interpretation/commen t Comment Invalid Interpretation Code . [facility] [employer] Work Phone: Albumin 3.9 g/dL Invalid Interpretation Code 3.2-5.6 [facility] [employer] Work Phone: Albumin/Globulin Ratio 1.4 (?) Invalid Interpretation Code 0.7-2.0 [facility] [employer] Work Phone: Globulin 0.9 g/dL Invalid Interpretation Code 0.5-1.6 [facility] [employer] Work Phone: Globulin 1.0 g/dL Invalid Interpretation Code 0.6-1.3 [facility] [employer] Work Phone: Globulin 0.6 g/dL Invalid Interpretation Code 0.4-1.2 [facility] [employer] Work Phone: Globulin 0.2 g/dL Invalid Interpretation Code 0.1-0.4 [facility] [employer] Work Phone: Globulin 2.7 g/dL Invalid Interpretation Code 2.0-4.5 [facility] [employer] Work Phone: Protein 6.6 g/dL Invalid Interpretation Code 6.0-8.5 [facility] Work Phone: Blood Bank: Direct Antigljavier chappell Leonardo DATon 09-30-2015 GE use only - for LinkLogic import when terms are not otherwise specified NEG w/POLYSPECIFIC Normal NEGATIVE [facility] Surg [facility] Work Phone: Lab Report: (P) Urinalysis, Completeon 09-30-2015 Nitrite Urine Negative Invalid Interpretation Code Negative [facility] Work Phone: Occult Blood, urine Negative Invalid Interpretation Code Negative [facility] Work Phone: specific gravity, urine 1.020 Invalid Interpretation Code 1.002-1.03 0 [facility] [employer] Work Phone: Urine, bilirubin presence Negative Invalid Interpretation Code Negative [facility] Work Phone: Urine, clarity Clear Invalid Interpretation Code Clear [facility] Work Phone: Urine, color Yellow Invalid Interpretation Code Yellow [facility] Work Phone: Urine, glucose presence Normal mg/dl Invalid Interpretation Code Normal [facility] Work Phone: Urine, ketones presence Negative Invalid Interpretation Code Negative [facility] Work Phone: Urine, leukocyte esterase presence Negative Invalid Interpretation Code Negative [facility] Work Phone: Urine, pH 6.0 [pH] Invalid Interpretation Code 5.0 - 8.0 [facility] Work Phone: Urine, protein Negative Invalid Interpretation Code Negative [facility] Work Phone: urobilinogen, urine, by dipstick Normal mg/dl Invalid Interpretation Code Normal [facility] Work Phone: Lab Report: Bilirubin, Direc ton 09-30-2015 Bilirubin (direct) 0.10 mg/dL Invalid Interpretation Code 0.00-0.30 [facility] Work Phone: Lab Report: CBC W/Diff, Auto matedon 09-30-2015 immature granulocytes, percentage of total cells, blood 0.000 % Invalid Interpretation Code 0.0-0.9 [facility] Work Phone: red blood cell distribution width, size density 43.8 fL Invalid Interpretation Code 35.1-43.9 [facility] Work Phone: Lab Report: Ferritinon 09-30 Ferritin 292 ng/mL Invalid Interpretation Code 26-388 [facility] Work Phone: Lab Report: Folates, (Folic Acid)on 09-30-2015 Folate 32.60 ng/mL High 3.1-17.5 [facility] Work Phone: Lab Report: Ironon 5 Iron 74 ug/dL Invalid Interpretation Code 65-175 [facility] Work Phone: Lab Report: Iron Binding Cap acity,Totalon 09-30-2015 iron binding capacity, total 317 ug/dL Invalid Interpretation Code 250-450 [facility] [employer] Work Phone: Lab Report: PSA,Total- Diagn osticon 09-30-2015 prostate specific antigen, total 6.81 ng/mL High 0.0-4.0 [facility] [employer] Work Phone: Lab Report: Retic Panelon Reticulocytes/100 erythrocytes 0.75 % Invalid Interpretation Code 0.5-1.5 [facility] [employer] Work Phone: Lab Report: Thyroid Stim Hor danitza (TSH)on 09-30-2015 Thyroid stimulating hormone (TSH) 1.19 u[iU]/mL Invalid Interpretation Code 0.358-3.74 [facility] [employer] Work Phone: Lab Report: Urinalysis, Comp leteon 09-30-2015 Urine, bacteria in sediment 0 /[HPF] Invalid Interpretation Code None Seen [facility] [employer] Work Phone: Urine, epithelial cells in sediment 0 SEEN Invalid Interpretation Code 0-5 [facility] [employer] Work Phone: Urine, erythrocytes in sediment by volume 0 SEEN Invalid Interpretation Code 0-5 [facility] [employer] Work Phone: Urine, mucus presence in sediment 0 SEEN Invalid Interpretation Code [facility] [employer] Work Phone: WBC (Leukocytes) 0 SEEN Invalid Interpretation Code 0-5 [facility] Work Phone: Lab Report: Vitamin B12on vitamin b12, serum 662 pg/mL Invalid Interpretation Code 211-911 [facility] [employer] Work Phone: URINE KWAME CULTURE-CAROLA COL C OUNT ([id number])Ordered By: [employer] Worker on 2015 Bacteria identified Cx Nom (U) Final report Normal [facility] Work Phone: Comment on above: PATIENT NOT FASTINGP ERFORMED BY: CODI [facility] Guvbpi7486 [facility] [id number] Information: SRC:UR [id number] Bacteria identified Cx Nom (U) NG36 Normal [facility]; [facility] Work Phone: Comment on above: No growth in 36 - 48 hours. PATIENT NOT FASTINGP ERFORMED BY: [facility] Devgee7301 [facility] [id number] Information: SRC:[facility] [place] [id number] Urinalysis, Office ([id number])Or dered By: Rebeca Boggs on 2015 Bilirubin Ql (U) Negative Normal Comprehe nsive [facility]; [facility] Work Phone: Glucose Test strip (U) [Mass/Vol] Negative Normal [facility]; [facility] Work Phone: Hemoglobin Ql (U) Negative Normal Compreh ensive [facility]; [facility] Work Phone: Ketones Ql (U) Negative Normal Comprehens [facility]; [facility] Work Phone: Leukocyte esterase Test strip Ql (U) Negative Normal [facility]; [facility] Work Phone: Nitrite Ql (U) Negative Normal Comprehens [facility]; [facility] Work Phone: pH (U) 7.0 [pH] Normal [facility]; [facility] Work Phone: Protein Ql (U) Negative Normal Comprehens [facility]; [facility] Work Phone: Specific gravity (U) [Rel density] 1.020 1 Normal [facility]; [facility] Work Phone: Urobilinogen (24H U) [Mass/Time] 2 mg/dL Normal [facility]; [facility] Work Phone: TESTOSTERONE FREE ([id number])Ord ered By: [employer] Worker on 03-18-2015 Testosterone Free [Mass/Vol] 2.9 pg/mL Abnormal 7.2-24.0 [facility]; [facility] Work Phone: Comment on above: PERFORMED BY: [facility] [address] [id number] Urinalysis, Office ([id number])Or dered By: Maty Renteria on 03-13-2015 Bilirubin Ql (U) Negative Normal Comprehe nsive [facility]; [facility] Work Phone: Glucose Test strip (U) [Mass/Vol] Negative Normal [facility]; [facility] Work Phone: Hemoglobin Ql (U) Negative Normal Compreh ensive [facility]; [facility] Work Phone: Ketones Ql (U) Negative Normal Comprehens [facility]; [facility] Work Phone: Leukocyte esterase Test strip Ql (U) Negative Normal [facility]; [facility] Work Phone: Nitrite Ql (U) Negative Normal Comprehens [facility]; [facility] Work Phone: pH (U) 6.5 [pH] Normal [facility]; [facility] Work Phone: Protein Ql (U) Negative Normal Comprehens [facility]; [facility] Work Phone: Specific gravity (U) [Rel density] 1.015 1 Normal [facility]; [facility] Work Phone: Urobilinogen (24H U) [Mass/Time] Normal Normal [facility]; [facility] Work Phone: MYOGLOBIN ([id number])Ordered By: [employer] Worker on 10-27-2014 Myoglobin [Mass/Vol] ng/mL Abnormal 28-72 Comp rehensive [facility]; [facility] Work Phone: Comment on above: PATIENT NOT FASTINGP ERFORMED BY: CODI [employer] Tyieru6045 [facility] [id number] BY: [facility] [id number] MYOGLOBIN, URINE ([id number])Orde red By: [employer] Worker on 10-27-2014 Myoglobin (U) [Mass/Vol] <2 Normal 0-13 [facility]; [facility] Work Phone: Comment on above: PATIENT NOT FASTINGP ERFORMED BY: CODI [employer] Sgiczq5919 [place] [id number] BY: [facility] [id number] Metabolic Panel, Jonathan noe ([id number])Ordered By: [employer] Worker on 10-27-2014 Albumin [Mass/Vol] 4.5 g/dL Normal 3.5-5.5 Brittny [facility]; [facility] Work Phone: Comment on above: PATIENT NOT FASTINGP ERFORMED BY: CB [facility] Vrzjwy0930 [facility] [id number] BY: [facility] [id number] Information: [id number] Albumin/Globulin [Mass ratio] 2.0 {ratio} Normal 1.1-2.5 [facility]; [facility] Work Phone: Comment on above: PATIENT NOT FASTINGP ERFORMED BY: CB [facility] Zigzut0751 [facility] [id number] BY: [facility] [id number] Information: [id number] ALP [Catalytic activity/Vol] 85 U/L Normal 39-117 [facility]; [facility] Work Phone: Comment on above: PATIENT NOT FASTINGP ERFORMED BY: CB [facility] Tbpjnl4533 [facility] [id number] BY: [facility] [id number] Information: [id number] ALT [Catalytic activity/Vol] 17 U/L Normal 0-44 [facility]; [facility] Work Phone: Comment on above: PATIENT NOT FASTINGP ERFORMED BY: CB [facility] Rniokb0266 [facility] [id number] BY: [facility] [id number] Information: [id number] AST [Catalytic activity/Vol] 12 U/L Normal 0-40 [facility]; [facility] Work Phone: Comment on above: PATIENT NOT FASTINGP ERFORMED BY: CB [facility] Hxnsft6885 [address]uster RoadDublin [place] [id number] BY: Lab[address] [id number] Information: [id number] Bilirubin [Mass/Vol] 0.2 mg/dL Normal 0.0-1.2 Comp rehensive [facility]; [facility] Work Phone: Comment on above: PATIENT NOT FASTINGP ERFORMED BY: CB [facility] Zmdmnm1480 Schuster RoadDublin [place] [id number] BY: Lab[address] [id number] Information: [id number] Calcium [Mass/Vol] 9.8 mg/dL Normal 8.7-10.[address] [facility]; [facility] Work Phone: Comment on above: PATIENT NOT FASTINGP ERFORMED BY: CB [facility] Opaold5838 [facility] [id number] BY: LabNan[employer] [id number] Information: [id number] Chloride [Moles/Vol] 102 mmol/L Normal 97-108 Comp rehensive [facility]; [facility] Work Phone: Comment on above: PATIENT NOT FASTINGP ERFORMED BY: CB [facility] Rnnaiw3812 [address] [facility] Hospital[facility] [place] [id number] BY: Lab[address] [id number] Information: [id number] CO2 [Moles/Vol] 22 mmol/L Normal 18-29 [facility]; [facility] Work Phone: Comment on above: PATIENT NOT FASTINGP ERFORMED BY: CB [facility] Uvogdp2260 [address] RoadDublin [place] [id number] BY: [employer] [id number] Information: [id number] Creatinine [Mass/Vol] 1.01 mg/dL Normal 0.76-1.27 [facility] prehensive Internal [facility]; [facility] Work Phone: Comment on above: PATIENT NOT FASTINGP ERFORMED BY: [email or web address] LabNanotherapeuticsrp Zonxik3750 [facility] [id number] BY: [employer] [address] [id number] Information: [id number] GFR/1.73 sq M.predicted among blacks CKD-EPI (S/P/Bld) [Vol rate/Area] 95 mL/min/1.73 Normal [facility]; [facility] Work Phone: Comment on above: PATIENT NOT FASTINGP ERFORMED BY: [employer]6370 [facility] [id number] BY: [employer] [id number] Information: [id number],[id number] GFR/1.73 sq M.predicted among non-blacks CKD-EPI (S/P/Bld) [Vol rate/Area] 82 mL/min/1.73 Normal [facility]; [facility] Work Phone: Comment on above: PATIENT NOT FASTINGP ERFORMED BY: [employer]6370 [facility] [id number] BY: [employer] [id number] Information: [id number] Globulin (S) [Mass/Vol] 2.3 g/dL Normal 1.5-4.5 [facility]; [facility] Work Phone: Comment on above: PATIENT NOT FASTINGP ERFORMED BY: [employer]6370 [facility] [id number] BY: [employer] [id number] Information: [id number] Glucose [Mass/Vol] 86 mg/dL Normal 65-[address] [facility]; [facility] Work Phone: Comment on above: PATIENT NOT FASTINGP ERFORMED BY: CB [facility] Toalss5151 [facility] [id number] BY: [address] [id number] Information: [id number] Potassium [Moles/Vol] 4.2 mmol/L Normal 3.5-5.2 [facility] [facility]; [facility] Work Phone: Comment on above: PATIENT NOT FASTINGP ERFORMED BY: CB [facility] Vxjbaq3313 [facility] [id number] BY: [address] [id number] Information: [id number] Protein [Mass/Vol] 6.8 g/dL Normal 6.0-8.[address] [facility] Internal Medicine; [facility] Work Phone: Comment on above: PATIENT NOT FASTINGP ERFORMED BY: CB [facility] Wyudwz2230 [facility] [id number] BY: [address] [id number] Information: 259975,M08580 Sodium [Moles/Vol] 140 mmol/L Normal 134-[address] [facility] Internal Medicine; [facility] Work Phone: Comment on above: PATIENT NOT FASTINGP ERFORMED BY: CB [facility] Yokevh6776 [facility] [id number] BY: [address] [id number] Information: 223179,R51162 Urea nitrogen [Mass/Vol] 15 mg/dL Normal 6-24 [facility]; [facility] Work Phone: Comment on above: PATIENT NOT FASTINGP ERFORMED BY: [facility] Tielgv0573 [facility] [place] [id number] BY: Lab[address] [id number] Information: 627061,[id number] Urea nitrogen/Creatinine [Mass ratio] 15 mg/mg Normal 9-20 [facility]; [facility] Work Phone: Comment on above: PATIENT NOT FASTINGP ERFORMED BY: [facility] Ijjmba7226 [facility] [id number] BY: [address] [id number] Information: 892788,K04897 Renal function Panel (02732) Ordered By: [employer] Worker on 09-09-2014 Albumin [Mass/Vol] 4.4 g/dL Normal 3.5-5.5 [facility]; [facility] Work Phone: Comment on above: PATIENT NOT FASTINGP ERFORMED BY: [facility] Aovdai7056 [facility] [id number] Information: 349021,G61347 Calcium [Mass/Vol] 9.6 mg/dL Normal 8.7-10.2 [facility]; [facility] Work Phone: Comment on above: PATIENT NOT FASTINGP ERFORMED BY: CB [facility] Wafxup5930 [facility] [id number] Information: 401638,A25287 Chloride [Moles/Vol] 102 mmol/L Normal 97-108 Comp rehensive Internal Medicine; [facility] Work Phone: Comment on above: PATIENT NOT FASTINGP ERFORMED BY: CB [facility] Riojhl1450 [facility] [id number] Information: 124968,P20558 CO2 [Moles/Vol] 20 mmol/L Normal 18-[address] [facility]; [facility] Work Phone: Comment on above: PATIENT NOT FASTINGP ERFORMED BY: CODI [facility] Jcmdrb2342 [facility] [place] [id number] Information: 832921,C39755 Creatinine [Mass/Vol] 0.95 mg/dL Normal 0.76-1.27 [facility]; [facility] Work Phone: Comment on above: PATIENT NOT FASTINGP ERFORMED BY: CB [facility] Ojmbuu6182 [facility] [place] [id number] Information: 553347,B57847 GFR/1.73 sq M.predicted among blacks CKD-EPI (S/P/Bld) [Vol rate/Area] 102 mL/min/1.73 Normal [facility]; [facility] Work Phone: Comment on above: PATIENT NOT FASTINGP ERFORMED BY: [facility] Cyqdeo7309 [facility] [place] [id number] Information: 293536,B25848 GFR/1.73 sq M.predicted among non-blacks CKD-EPI (S/P/Bld) [Vol rate/Area] 88 mL/min/1.73 Normal [facility]; [facility] Work Phone: Comment on above: PATIENT NOT FASTINGP ERFORMED BY: CB [facility] Zlqjhs8725 [facility] [place] [id number] Information: 785586,X24360 Glucose [Mass/Vol] 98 mg/dL Normal 65-[address] [facility] Internal Medicine; [facility] Work Phone: Comment on above: PATIENT NOT FASTINGP ERFORMED BY: CB [facility] Bevhnk3023 [facility] [place] [id number] Information: 352699,M82163 Phosphate [Mass/Vol] 2.5 mg/dL Normal 2.5-4.5 [facility]; [facility] Work Phone: Comment on above: PATIENT NOT FASTINGP ERFORMED BY: CB [facility] Jgrhha7381 [address] Roadblin [place] [id number] Information: 318910,L71771 Potassium [Moles/Vol] 4.4 mmol/L Normal 3.5-5.2 [facility] prehensive Internal Medicine; [facility] Work Phone: Comment on above: PATIENT NOT FASTINGP ERFORMED BY: CODI Yee Yixxta2745 [facility] [id number] Information: 678489,Y29264 Sodium [Moles/Vol] 139 mmol/L Normal 134-[address] [facility] Internal Medicine; [facility] Work Phone: Comment on above: PATIENT NOT FASTINGP ERFORMED BY: [place] 7532370 [facility] [id number] Information: 904614,L39215 Urea nitrogen [Mass/Vol] 13 mg/dL Normal 6-24 [facility]; [facility] Work Phone: Comment on above: PATIENT NOT FASTINGP ERFORMED BY: [address] [id number] Information: 425699,Z21151 Urea nitrogen/Creatinine [Mass ratio] 14 mg/mg Normal 9-20 [facility]; [facility] Work Phone: Comment on above: PATIENT NOT FASTINGP ERFORMED BY: [facility]Helen [facility]6370 [facility] [id number] Information: 853420,[id number] RUNUY-XVWDTABIWRG-KIWMY (821 05)Ordered By: [employer] Worker on 07-08-2014 AFP.tumor marker [Mass/Vol] 4.7 ng/mL Normal 0.0-8.3 [facility]; [facility] Work Phone: Comment on above: Navjot ECLIA methodol ogy PATIENT NOT FASTINGP ERFORMED BY: [place] 7532370 [facility] [id number] Information: 845252,I57062 AMYLASE (40450)Ordered By: S ystem Theatre Arts Professor on 07-08-2014 Amylase [Catalytic activity/Vol] 79 U/L Normal 31-124 [facility]; [facility] Work Phone: Comment on above: PATIENT NOT FASTINGP ERFORMED BY: CODI LabAnna Zaldivar6370 [facility] [place] [id number] LIPASE (75358)Ordered By: stem Theatre Arts Professor on 07-08-2014 Lipase [Catalytic activity/Vol] 32 U/L Normal 0-59 [facility]; [facility] Work Phone: Comment on above: PATIENT NOT FASTINGP ERFORMED BY: CODI [facility] Zuwxog7855 [facility] [place] [id number] CBC, Platelets & Auto Diff ( 73118)Ordered By: [employer] Worker on 06-23-2014 Basophils (Bld) [#/Vol] 0.1 10*3/uL Normal 0.0-0.2 [facility]; [facility] Work Phone: Comment on above: PATIENT NOT FASTINGP ERFORMED BY: CODI LabLuis Antonio Qucrkf0641 [facility] [id number] Information: 201777,H30756 Basophils/100 WBC (Bld) 1 % Normal 0-3 [facility]; [facility] Work Phone: Comment on above: PATIENT NOT FASTINGP ERFORMED BY: CODI Zaldivar6370 [facility] [id number] Information: 837411,K89185 Eosinophils (Bld) [#/Vol] 0.2 10*3/uL Normal 0.0-0.4 [facility]; [facility] Work Phone: Comment on above: PATIENT NOT FASTINGP ERFORMED BY: CODI [facility] Lqwxxn1678 [facility] [place] [id number] Information: 828541,K67458 Eosinophils/100 WBC (Bld) 4 % Normal 0-5 [facility]; [facility] Work Phone: Comment on above: PATIENT NOT FASTINGP ERFORMED BY: CODI [facility] Sxowuu3315 [facility] [id number] Information: 252327,C30455 Erythrocyte distribution width (RBC) [Ratio] 13.8 % Normal 12.3-15.4 [facility]; [facility] Work Phone: Comment on above: PATIENT NOT FASTINGP ERFORMED BY: CODI [facility] [id number] Information: 677571,M46152 Hematocrit (Bld) [Volume fraction] 43.6 % Normal 37.5-51.0 [facility]; [facility] Work Phone: Comment on above: PATIENT NOT FASTINGP ERFORMED BY: CODI Zaldivar6370 [facility] [id number] Information: 263900,Z70229 Hemoglobin (Bld) [Mass/Vol] 15.2 g/dL Normal 12.6-17.7 [facility]; [facility] Work Phone: Comment on above: PATIENT NOT FASTINGP ERFORMED BY: CODI Zaldivar6370 [facility] [id number] Information: 505107,P24824 Immature granulocytes (Bld) [#/Vol] 0.0 10*3/uL Normal 0.0-0.1 [facility]; [facility] Work Phone: Comment on above: PATIENT NOT FASTINGP ERFORMED BY: CODI Zaldivar6370 [facility] [id number] Information: 790589,D72834 Immature granulocytes/100 WBC (Bld) 0 % Normal 0-2 [facility]; [facility] Work Phone: Comment on above: PATIENT NOT FASTINGP ERFORMED BY: CODI Yee Gmxfeu4635 [facility] [id number] Information: 415569,P20936 Lymphocytes (Bld) [#/Vol] 2.5 10*3/uL Normal 0.7-3.1 [facility]; [facility] Work Phone: Comment on above: PATIENT NOT FASTINGP ERFORMED BY: CODI Yee Qwytbr5198 [facility] [id number] Information: 439711,U27114 Lymphocytes/100 WBC (Bld) 38 % Normal 14-46 [facility]; [facility] Work Phone: Comment on above: PATIENT NOT FASTINGP ERFORMED BY: CODI Zaldivar6370 [facility] [id number] Information: 002037,M63515 MCH (RBC) [Entitic mass] 29.1 pg Normal 26.6-33.0 [facility]; [facility] Work Phone: Comment on above: PATIENT NOT FASTINGP ERFORMED BY: CODI [facility] Bjrohz2103 [facility] [id number] Information: 977567,B56988 MCHC (RBC) [Mass/Vol] 34.9 g/dL Normal 31.5-35.7 [facility] Internal [facility]; [facility] Work Phone: Comment on above: PATIENT NOT FASTINGP ERFORMED BY: CODI Yee Xwwwef0637 [facility] [id number] Information: 833140,N94771 MCV (RBC) [Entitic vol] 84 fL Normal 79-97 [facility]; [facility] Work Phone: Comment on above: PATIENT NOT FASTINGP ERFORMED BY: CODI Yee Znblnl6647 [facility] [id number] Information: 324115,[id number] Monocytes (Bld) [#/Vol] 0.5 10*3/uL Normal 0.1-0.9 [facility]; [facility] Work Phone: Comment on above: PATIENT NOT FASTINGP ERFORMED BY: CODI [facility] Arohsn7581 [facility] [id number] Information: 783336,F37055 Monocytes/100 WBC (Bld) 7 % Normal 4-12 [facility]; [facility] Work Phone: Comment on above: PATIENT NOT FASTINGP ERFORMED BY: CODI [facility]Hugaxo9144 [facility] [id number] Information: 180839,N56100 Neutrophils (Bld) [#/Vol] 3.3 10*3/uL Normal 1.4-7.0 [facility]; [facility] Work Phone: Comment on above: PATIENT NOT FASTINGP ERFORMED BY: CODI Zaldivar6370 [facility] [id number] Information: 834097,S56558 Neutrophils/100 WBC (Bld) 50 % Normal 40-74 [facility]; [facility] Work Phone: Comment on above: PATIENT NOT FASTINGP ERFORMED BY: CODI [facility] Hgivsg7136 [facility] [id number] Information: 916493,H22040 Platelets (Bld) [#/Vol] 246 10*3/uL Normal 150-379 [facility]; [facility] Work Phone: Comment on above: PATIENT NOT FASTINGP ERFORMED BY: CODI Yee Kukqtk9927 [facility] [id number] Information: 364035,C73295 RBC (Bld) [#/Vol] 5.22 10*6/uL Normal 4.14-5.80 Compr ehensive Internal Medicine; [facility] Work Phone: Comment on above: PATIENT NOT FASTINGP ERFORMED BY: CODI Yee Gwnnwp6422 [facility] [id number] Information: 077886,Z72592 WBC (Bld) [#/Vol] 6.6 10*3/uL Normal 3.4-10.8 [facility]; [facility] Work Phone: Comment on above: PATIENT NOT FASTINGP ERFORMED BY: CODI Yee Dtthlb6772 [facility] [id number] Information: 319884,[id number] MAGNESIUM (55760)Ordered By: [employer] Worker on 06-23-2014 Magnesium [Mass/Vol] 2.1 mg/dL Normal 1.6-2.6 Comp rehensive Internal Medicine; [facility] Work Phone: Comment on above: PATIENT NOT FASTINGP ERFORMED BY: CB [facility] Jccpqh5654 [address]uster RoadDublin [place] [id number] Metabolic Panel, Comprehensi ve (25149)Ordered By: [employer] Worker on 06-23-2014 Albumin [Mass/Vol] 4.7 g/dL Normal 3.5-5.[address] [facility] Internal Medicine; [facility] Work Phone: Comment on above: PATIENT NOT FASTINGP ERFORMED BY: CB [facility] Axusmt6851 [address]uster RoadDublin [place] [id number] Albumin/Globulin [Mass ratio] 2.0 {ratio} Normal 1.1-2.5 [facility]; [facility] Work Phone: Comment on above: PATIENT NOT FASTINGP ERFORMED BY: CB [facility] Wvxynk1841 [address] RoadDublin [place] [id number] ALP [Catalytic activity/Vol] 80 U/L Normal 39-117 [facility]; [facility] Work Phone: Comment on above: PATIENT NOT FASTINGP ERFORMED BY: CB [facility] Ktjsua2429 [address] RoadDublin [place] [id number] ALT [Catalytic activity/Vol] 29 U/L Normal 0-44 [facility]; [facility] Work Phone: Comment on above: PATIENT NOT FASTINGP ERFORMED BY: CB [facility] Xpldri1298 [address] RoadDublin [place] [id number] AST [Catalytic activity/Vol] 20 U/L Normal 0-40 [facility]; [facility] Work Phone: Comment on above: PATIENT NOT FASTINGP ERFORMED BY: CB [facility] Igzrbt5474 [address] RoadDublin [place] [id number] Bilirubin [Mass/Vol] 0.3 mg/dL Normal 0.0-1.2 Comp rehensive Internal Medicine; [facility] Work Phone: Comment on above: PATIENT NOT FASTINGP ERFORMED BY: CB [facility] Lmslag1276 [address] RoadDublin [place] [id number] Calcium [Mass/Vol] 10.0 mg/dL Normal 8.7-10.2 [facility] Internal [facility]; [facility] Work Phone: Comment on above: PATIENT NOT FASTINGP ERFORMED BY: CB [facility] Enoxir4525 [address] RoadDublin [place] [id number] Chloride [Moles/Vol] 101 mmol/L Normal 97-108 Comp rehensive Internal Medicine; [facility] Work Phone: Comment on above: PATIENT NOT FASTINGP ERFORMED BY: CB [facility] Vbyche0000 [address] RoadDublin [place] [id number] CO2 [Moles/Vol] 19 mmol/L Normal 18-29 [facility] Internal Medicine; [facility] Work Phone: Comment on above: PATIENT NOT FASTINGP ERFORMED BY: CB [facility] Jbvaca6657 [address] RoadDublin [place] [id number] Creatinine [Mass/Vol] 0.96 mg/dL Normal 0.76-1.27 [facility]; [facility] Work Phone: Comment on above: PATIENT NOT FASTINGP ERFORMED BY: CB [facility] Bwwpqe2609 Schs[address] RoadDublin [place] [id number] GFR/1.73 sq M.predicted among blacks CKD-EPI (S/P/Bld) [Vol rate/Area] 102 mL/min/1.73 Normal [facility]; [facility] Work Phone: Comment on above: PATIENT NOT FASTINGP ERFORMED BY: CB [facility] Bjpnvq7127 [address] RoadDublin [place] [id number] GFR/1.73 sq M.predicted among non-blacks CKD-EPI (S/P/Bld) [Vol rate/Area] 88 mL/min/1.73 Normal [facility]; [facility] Work Phone: Comment on above: PATIENT NOT FASTINGP ERFORMED BY: CB [facility] Dhkvaz1027 [address] RoadDublin [place] [id number] Globulin (S) [Mass/Vol] 2.4 g/dL Normal 1.5-4.5 [facility]; [facility] Work Phone: Comment on above: PATIENT NOT FASTINGP ERFORMED BY: CODI [facility] Rixsda4756 [address] RoadDublin [place] [id number] Glucose [Mass/Vol] 90 mg/dL Normal 65-[address] [facility] Internal Medicine; [facility] Work Phone: Comment on above: PATIENT NOT FASTINGP ERFORMED BY: CB [facility] Maglgh2259 [address] RoadDublin [place] [id number] Potassium [Moles/Vol] 4.8 mmol/L Normal 3.5-5.2 [facility] prehensive Internal Medicine; [facility] Work Phone: Comment on above: PATIENT NOT FASTINGP ERFORMED BY: CB [facility] Ycxroe4126 [address] RoadDublin [place] [id number] Protein [Mass/Vol] 7.1 g/dL Normal 6.0-8.[address] [facility] Internal Medicine; [facility] Work Phone: Comment on above: PATIENT NOT FASTINGP ERFORMED BY: CB [facility] Zragdx3047 [address] RoadDublin [place] [id number] Sodium [Moles/Vol] 137 mmol/L Normal 134-[address] [facility] Internal Medicine; [facility] Work Phone: Comment on above: PATIENT NOT FASTINGP ERFORMED BY: CODI [facility] Ygoaga7545 [address] RoadDublin [place] [id number] Urea nitrogen [Mass/Vol] 18 mg/dL Normal 6-24 [facility]; [facility] Work Phone: Comment on above: PATIENT NOT FASTINGP ERFORMED BY: CB [facility] Gzobtv3517 [address] RoadDublin [place] [id number] Urea nitrogen/Creatinine [Mass ratio] 19 mg/mg Normal 9-20 [facility]; [facility] Work Phone: Comment on above: PATIENT NOT FASTINGP ERFORMED BY: CB [facility] Kepodo4012 [address] RoadDublin [place] [id number] Lyme Disease,Serum, Western Blot (42656)Ordered By: [employer] Worker on 03-03-2014 B. burgdorferi 18kD IgG IB Ql (S) Absent Normal [facility]; [facility] Work Phone: Comment on above: PATIENT NOT FASTINGP ERFORMED BY: [address] [id number] Information: 528076,[id number] B. burgdorferi 23kD IgG IB Ql (S) Absent Normal [facility]; [facility] Work Phone: Comment on above: PATIENT NOT FASTINGP ERFORMED BY: [address] [id number] Information: 523392,X20515 B. burgdorferi 23kD IgM IB Ql (S) Present Abnormal [facility]; [facility] Work Phone: Comment on above: PATIENT NOT FASTINGP ERFORMED BY: [address] [id number] Information: 269256,[id number] B. burgdorferi 28kD IgG IB Ql (S) Absent Normal [facility]; [facility] Work Phone: Comment on above: PATIENT NOT FASTINGP ERFORMED BY: [address] [id number] Information: 479159,R98872 B. burgdorferi 30kD IgG IB Ql (S) Absent Normal [facility]; [facility] Work Phone: Comment on above: PATIENT NOT FASTINGP ERFORMED BY: [address] [id number] Information: 168895,J05877 B. burgdorferi 39kD IgG IB Ql (S) Absent Normal [facility]; [facility] Work Phone: Comment on above: PATIENT NOT FASTINGP ERFORMED BY: [address] [id number] Information: 592399,R53050 B. burgdorferi 39kD IgM IB Ql (S) Absent Normal [facility]; [facility] Work Phone: Comment on above: PATIENT NOT FASTINGP ERFORMED BY: [address] [id number] Information: 775629,P80058 B. burgdorferi 41kD IgG IB Ql (S) Absent Normal [facility]; [facility] Work Phone: Comment on above: PATIENT NOT FASTINGP ERFORMED BY: [address] [id number] Information: 697667,B48027 B. burgdorferi 41kD IgM IB Ql (S) Absent Normal [facility]; [facility] Work Phone: Comment on above: PATIENT NOT FASTINGP ERFORMED BY: [address] [id number] Information: 232014,[id number] B. burgdorferi 45kD IgG IB Ql (S) Absent Normal [facility]; [facility] Work Phone: Comment on above: PATIENT NOT FASTINGP ERFORMED BY: [address] [id number] Information: 095910,V61692 B. burgdorferi 58kD IgG IB Ql (S) Absent Normal [facility]; [facility] Work Phone: Comment on above: PATIENT NOT FASTINGP ERFORMED BY: [address] [id number] Information: 776870,[id number] B. burgdorferi 66kD IgG IB Ql (S) Absent Normal [facility]; [facility] Work Phone: Comment on above: PATIENT NOT FASTINGP ERFORMED BY: [address] [id number] Information: 612945,S65425 B. burgdorferi 93kD IgG IB Ql (S) Absent Normal [facility]; [facility] Work Phone: Comment on above: PATIENT NOT FASTINGP ERFORMED BY: [address] [id number] Information: 202726,K26913 B. burgdorferi IgG band pattern IB (S) [Interp] Negative Normal [facility]; [facility] Work Phone: Comment on above: Positive: 5 of the f ollowing Borrelia-specific bands: 18,23,28,30,39,41,45,58, 66, and 93. Negative: No bands or banding patterns which do not meet positive criteria. PATIENT NOT FASTINGP ERFORMED BY: Echelon[address] [id number] Information: 436753,K38143 B. burgdorferi IgM band pattern IB (S) [Interp] Negative Normal [facility]; [facility] Work Phone: Comment on above: Note: An equivocal o r positive EIA result followed by a negativeWestern Blot result is considered NEGATIVE. An equivocal or positiveEIA result followed by a positive Western Blot is considered POSITIVEby the CDC. .Positive: 2 of the following bands: 23,39 or 41Negative: No bands or banding patterns which do not meet positivecriteria.Criteria for positivity are those recommended by CDC/ASTPHLD.p23=Osp C, a92=ogicdtory .Note:Sera from individuals with the following may cross react in theLyme Western Blot assays: other spirochetal diseases (periodontaldisease, leptospirosis, relapsing fever, yaws, and pinta);connective autoimmune (Rheumatoid Arthritis and Systemic LupusErythematosus and also individuals with Antinuclear Antibody);other infections (Keeler Spotted Fever; Aníbal-Patino Virus,and Cytomegalovirus). . PATIENT NOT FASTINGP ERFORMED BY: Echelon Mnvnndizcm[address] [id number] Information: 430440,U09457 CATECHOLAMINES TOTAL, URINE (73489)Ordered By: [employer] Worker on 02-24-2014 DOPamine (24H U) [Mass/Time] 225 {ug/24_hr} Normal 0-510 [facility]; [facility] Work Phone: Comment on above: PATIENT NOT FASTINGP ERFORMED BY: [facility] [id number] Information: SRC:UR START 02/23/14@830AM END @515A DOPamine (U) [Mass/Vol] 75 ug/L Normal [facility]; [facility] Work Phone: Comment on above: PATIENT NOT FASTINGP ERFORMED BY: [facility] Lilfqfplqp[address] [id number] Information: SRC:UR START 02/23/14@830AM END @515A EPINEPHrine (24H U) [Mass/Time] 6 {ug/24_hr} Normal 0-20 [facility]; [facility] Work Phone: Comment on above: PATIENT NOT FASTINGP ERFORMED BY: BN [facility] [address] [address] [id number] Information: SRC:UR START 02/23/14@830AM END @515A EPINEPHrine (U) [Mass/Vol] 2 ug/L Normal [facility]; [facility] Work Phone: Comment on above: PATIENT NOT FASTINGP ERFORMED BY: [facility] Xoczhzhuin[address] [id number] Information: SRC:UR START 02/23/14@830AM END @515A Norepinephrine (24H U) [Mass/Time] 72 {ug/24_hr} Normal 0-135 [facility]; [facility] Work Phone: Comment on above: PATIENT NOT FASTINGP ERFORMED BY: [facility] [address] [id number] Information: SRC:UR START 02/23/14@830AM END @515A Norepinephrine (U) [Mass/Vol] 24 ug/L Normal [facility]; [facility] Work Phone: Comment on above: PATIENT NOT FASTINGP ERFORMED BY: [facility] [address] [id number] Information: SRC:UR START 02/23/14@830AM END @515A METANEPHRINES - URINE (13799 )Ordered By: [employer] Worker on 02-24-2014 Metanephrine (24H U) [Mass/Time] 123 {ug/24_hr} Normal 45-290 [facility]; [facility] Work Phone: Comment on above: (Hypertensive) >17 y ears 11 months: 35 - 460 . Please note reference interval change PATIENT NOT FASTINGP ERFORMED BY: Aseptia [facility] Pepsxebzha2176 [facility] [id number] Metanephrines (24H U) [Mass/Vol] 41 ug/L Normal [facility]; [facility] Work Phone: Comment on above: PATIENT NOT FASTINGP ERFORMED BY: Danforth Pewterersrp [address] [id number] Normetanephrine (24H U) [Mass/Time] 336 {ug/24_hr} Normal 82-500 [facility]; [facility] Work Phone: Comment on above: (Hypertensive) >17 y ears 11 months: 110 - 1050 PATIENT NOT FASTINGP ERFORMED BY: [facility] Bkkppykyyi[address] [id number] Normetanephrine (24H U) [Mass/Vol] 112 ug/L Normal [facility]; [facility] Work Phone: Comment on above: PATIENT NOT FASTINGP ERFORMED BY: [employer] [id number] OSMOLALITY BLOOD (19424)Orde red By: [employer] Worker on 02-24-2014 Osmolality [Osmolality] 291 mosm/kg Normal 275-295 [facility]; [facility] Work Phone: Comment on above: PATIENT NOT FASTINGP ERFORMED BY: [facility] Vpbuyx1123 [facility] [id number] BY: [facility] Qzkndjxfsa2509 [facility] [id number] OSMOLALITY URINE (16904)Orde red By: [employer] Worker on 02-24-2014 Osmolality (U) [Osmolality] 608 mosm/kg Normal [facility]; [facility] Work Phone: Comment on above: 24 hr : 300 - 900 Ra ndom: 50 - 1400 After 12hr fluid restriction: >850 PATIENT NOT FASTINGP ERFORMED BY: Nebo70 [facility] [id number] BY: Echelon[address] [id number] RENIN (84676)Ordered By: Amanda tem Theatre Arts Professor on 02-24-2014 Renin (P) [Catalytic activity/Vol] 14.81 {ng/mL/hr} Normal [facility]; [facility] Work Phone: Comment on above: Adult Normal Salt In take: Upright 1.31 - 3.95 Supine 0.15 - 2.33 . Salt Excretion (Na mEq/24 hr): Na= 0 - 30 8.82 - 23.86 Na= 30 - 75 4.09 - 7.73 Na= 75 - 150 1.44 - 2.80 Na= >150 0.39 - 1.31 PATIENT NOT FASTINGP ERFORMED BY: Danforth [employer] [id number] Information: H75327,2ND ORDER NO DRAW F EE Renal function Panel (78055) Ordered By: [employer] Worker on 02-24-2014 Albumin [Mass/Vol] 4.7 g/dL Normal 3.5-5.[address] [facility] Internal Medicine; [facility] Work Phone: Comment on above: PATIENT NOT FASTINGP ERFORMED BY: [employer]6370 [facility] [id number] BY: Echelon[address] [id number] Information: 149237,V18585 Calcium [Mass/Vol] 9.9 mg/dL Normal 8.7-10.2 [facility]; [facility] Work Phone: Comment on above: PATIENT NOT FASTINGP ERFORMED BY: [employer] LabDemdexOqtusn1195 [facility] [id number] BY: Echelon[address] [id number] Information: 811367,U66731 Chloride [Moles/Vol] 97 mmol/L Normal 97-108 [facility] rehensive Internal Medicine; [facility] Work Phone: Comment on above: PATIENT NOT FASTINGP ERFORMED BY: CB [facility] Sbtycn2372 [facility] [id number] BY: BN [facility] [address] [id number] Information: 368057,Z14424 CO2 [Moles/Vol] 23 mmol/L Normal 19-28 [facility] Internal Medicine; [facility] Work Phone: Comment on above: PATIENT NOT FASTINGP ERFORMED BY: CB [facility] Poxzyq4371 [facility] [id number] BY: Echelon[address] [id number] Information: 487411,O59105 Creatinine [Mass/Vol] 0.92 mg/dL Normal 0.76-1.27 [facility] prehensive Internal Medicine; [facility] Work Phone: Comment on above: PATIENT NOT FASTINGP ERFORMED BY: CB [facility] Xyghqt1085 [facility] [id number] BY: LabNanotherapeuticsrp [address] [id number] Information: 402115,W72707 GFR/1.73 sq M.predicted among blacks CKD-EPI (S/P/Bld) [Vol rate/Area] 107 mL/min/1.73 Normal [facility]; [facility] Work Phone: Comment on above: PATIENT NOT FASTINGP ERFORMED BY: CB [facility] Iboipc6687 [facility] [id number] BY: Lab[address] [id number] Information: 226656,O10248 GFR/1.73 sq M.predicted among non-blacks CKD-EPI (S/P/Bld) [Vol rate/Area] 93 mL/min/1.73 Normal [facility]; [facility] Work Phone: Comment on above: PATIENT NOT FASTINGP ERFORMED BY: CODI [facility] Ykwtsj0105 [facility] [id number] BY: Echelon[address] [id number] Information: 857746,G28800 Glucose [Mass/Vol] 121 mg/dL Abnormal 65-99 [facility]; [facility] Work Phone: Comment on above: PATIENT NOT FASTINGP ERFORMED BY: CODI [facility] Ttptvx6493 [facility] [id number] BY: Echelon[address] [id number] Information: 043379,V24080 Phosphate [Mass/Vol] 2.0 mg/dL Abnormal 2.5-4.5 [facility] Internal Medicine; [facility] Work Phone: Comment on above: PATIENT NOT FASTINGP ERFORMED BY: CODI [facility] Djwoci1648 [facility] [id number] BY: Echelon[address] [id number] Information: 635504,R35801 Potassium [Moles/Vol] 3.0 mmol/L Abnormal 3.5-5.2 [facility]; [facility] Work Phone: Comment on above: Client Requested [place] g PATIENT NOT FASTINGP ERFORMED BY: CODI [facility] Vcynmf3872 [facility] [id number] BY: [address] [id number] Information: 996355,A51710 Sodium [Moles/Vol] 138 mmol/L Normal 134-144 [facility]; [facility] Work Phone: Comment on above: PATIENT NOT FASTINGP ERFORMED BY: [facility]6370 [facility] [id number] BY: [address] [id number] Information: 130224,S74255 Urea nitrogen [Mass/Vol] 16 mg/dL Normal 6-24 [facility]; [facility] Work Phone: Comment on above: PATIENT NOT FASTINGP ERFORMED BY: LabChristopher [place] 2891370 [facility] [id number] BY: [address] [id number] Information: 050302,H67866 Urea nitrogen/Creatinine [Mass ratio] 17 mg/mg Normal 9-20 [facility]; [facility] Work Phone: Comment on above: PATIENT NOT FASTINGP ERFORMED BY: [place] 7532370 [facility] [id number] BY: [address] [id number] Information: 248548,Y34686 URINE VMA (86739)Ordered By: [employer] Worker on 02-24-2014 Vanillylmandelate (24H U) [Mass/Time] 4.2 {mg/24_hr} Normal 0.0-7.5 Comprehens[facility] e [facility]; [facility] Work Phone: Comment on above: PATIENT NOT FASTINGP ERFORMED BY: Lab[address] [id number] Vanillylmandelate (U) [Mass/Vol] 1.4 mg/L Normal [facility]; [facility] Work Phone: Comment on above: PATIENT NOT FASTINGP ERFORMED BY: [address] [id number] Blood Glucose , Office (8296 2)Ordered By: Maty Renteria on 02-21-2014 Glucose Glucometer (BldC) [Moles/Vol] 106 1 Normal [facility]; [facility] Work Phone: HgA1C , Office (90184)Ordere d By: Maty Renteria on 02-21-2014 HbA1c (Bld) [Mass fraction] 5.8 % Normal 4.6 - 7.1 [facility]; [facility] Work Phone: CALCIFEDIOL (48268)Ordered B y: [employer] Worker on 11-05-2012 25-hydroxyvitamin D [Mass/Vol] 33.3 ng/mL Normal 30.0-100.0 [facility]; [facility] Work Phone: Comment on above: Vitamin D deficiency has been defined by the [place] ofMedicine and an Endocrine Society practice guideline as alevel of serum 25-OH vitamin D less than 20 ng/mL (1,2).The Endocrine Society went on to further define vitamin Dinsufficiency as a level between 21 and 29 ng/mL (2).1. IOM ([place] of Medicine). 2010. Dietary reference intakes for calcium and D. [place]: The National Academies Press.2. Neha MF, Sammi COTA, Tristan MONTELONGO, et al. Evaluation, treatment, and prevention of vitamin D deficiency: an Endocrine Society clinical practice guideline. JCEM. 2010; 96(7):1911-30. PATIENT NOT FASTINGP ERFORMED BY: CB [facility] Cynaqf1731 [address] [place] [id number] CBC WITH MANUAL DIFF (53386) Ordered By: [employer] Worker on 11-05-2012 Basophils (Bld) [#/Vol] 0.1 10*3/uL Normal 0.0-0.2 [facility]; [facility] Work Phone: Comment on above: PATIENT NOT FASTINGP ERFORMED BY: CB [facility] Virebc3475 Schuster RoadDublin [place] [id number] Information: 316946,B70582 Basophils/100 WBC (Bld) 1 % Normal 0-3 [facility]; [facility] Work Phone: Comment on above: PATIENT NOT FASTINGP ERFORMED BY: CB [facility] Wlvbyz5253 Schuster RoadDublin [place] [id number] Information: 725213,E53377 Eosinophils (Bld) [#/Vol] 0.2 10*3/uL Normal 0.0-0.4 [facility]; [facility] Work Phone: Comment on above: PATIENT NOT FASTINGP ERFORMED BY: CODI Zaldivar6370 [facility] [id number] Information: 830157,Z99909 Eosinophils/100 WBC (Bld) 3 % Normal 0-7 [facility]; [facility] Work Phone: Comment on above: PATIENT NOT FASTINGP ERFORMED BY: CODI [address] [id number] Information: 473874,M07293 Erythrocyte distribution width (RBC) [Ratio] 13.8 % Normal 12.3-15.4 [facility]; [facility] Work Phone: Comment on above: PATIENT NOT FASTINGP ERFORMED BY: CODI Yee Wafyxs[address] [id number] Information: 594347,W29091 Hematocrit (Bld) [Volume fraction] 45.5 % Normal 37.5-51.0 [facility]; [facility] Work Phone: Comment on above: PATIENT NOT FASTINGP ERFORMED BY: CODI Yee[address] [id number] Information: 466365,P87683 Hemoglobin (Bld) [Mass/Vol] 16.0 g/dL Normal 12.6-17.7 [facility]; [facility] Work Phone: Comment on above: PATIENT NOT FASTINGP ERFORMED BY: CODI LabChrist[place] 2891370 [facility] [id number] Information: 003946,S02215 Immature granulocytes (Bld) [#/Vol] 0.0 10*3/uL Normal 0.0-0.1 [facility]; [facility] Work Phone: Comment on above: PATIENT NOT FASTINGP ERFORMED BY: [facility]6370 [facility] [id number] Information: 026936,T15491 Immature granulocytes/100 WBC (Bld) 0 % Normal 0-2 [facility]; [facility] Work Phone: Comment on above: PATIENT NOT FASTINGP ERFORMED BY: [address] [id number] Information: 202207,D96958 Lymphocytes (Bld) [#/Vol] 2.2 10*3/uL Normal 0.7-4.5 [facility]; [facility] Work Phone: Comment on above: PATIENT NOT FASTINGP ERFORMED BY: [address] [id number] Information: 342079,M06034 Lymphocytes/100 WBC (Bld) 33 % Normal 14-46 [facility]; [facility] Work Phone: Comment on above: PATIENT NOT FASTINGP ERFORMED BY: [place] 7532370 [facility] [id number] Information: 463504,A26390 MCH (RBC) [Entitic mass] 29.3 pg Normal 26.6-33.0 [facility]; [facility] Work Phone: Comment on above: PATIENT NOT FASTINGP ERFORMED BY: [address] [id number] Information: 882549,M46462 MCHC (RBC) [Mass/Vol] 35.2 g/dL Normal 31.5-35.7 [facility] prehensive Internal Medicine; [facility] Work Phone: Comment on above: PATIENT NOT FASTINGP ERFORMED BY: [place] 7532370 [facility] [id number] Information: 791137,I38441 MCV (RBC) [Entitic vol] 83 fL Normal 79-97 [facility]; [facility] Work Phone: Comment on above: PATIENT NOT FASTINGP ERFORMED BY: CODI Zaldivar6370 [address] [id number] Information: 490774,V64061 Monocytes (Bld) [#/Vol] 0.5 10*3/uL Normal 0.1-1.0 [facility]; [facility] Work Phone: Comment on above: PATIENT NOT FASTINGP ERFORMED BY: CODI Zaldivar6370 [address] BillieColumb[facility] [id number] Information: 202196,D84791 Monocytes/100 WBC (Bld) 8 % Normal 4-13 [facility]; [facility] Work Phone: Comment on above: PATIENT NOT FASTINGP ERFORMED BY: CODI Zaldivar6370 [address] WiseColumbus [facility] Healthcare System [id number] Information: 354651,X44084 Neutrophils (Bld) [#/Vol] 3.7 10*3/uL Normal 1.8-7.8 [facility]; [facility] Work Phone: Comment on above: PATIENT NOT FASTINGP ERFORMED BY: CODI Zaldivar6370 [facility] [id number] Information: 346969,Q07767 Neutrophils/100 WBC (Bld) 55 % Normal 40-74 [facility]; [facility] Work Phone: Comment on above: PATIENT NOT FASTINGP ERFORMED BY: CODI Zaldivar6370 [facility] [id number] Information: 565484,T08540 Platelets (Bld) [#/Vol] 254 10*3/uL Normal 140-415 [facility]; [facility] Work Phone: Comment on above: PATIENT NOT FASTINGP ERFORMED BY: CODI Zaldivar6370 [facility] [id number] Information: 518186,R66672 RBC (Bld) [#/Vol] 5.46 10*6/uL Normal 4.14-5.80 [facility] Internal Medicine; [facility] Work Phone: Comment on above: PATIENT NOT FASTINGP ERFORMED BY: CODI Zaldivar6370 [facility] [id number] Information: 347054,C09332 WBC (Bld) [#/Vol] 6.7 10*3/uL Normal 4.0-10.[address] [facility] Internal Medicine; [facility] Work Phone: Comment on above: PATIENT NOT FASTINGP ERFORMED BY: CODI Zaldivar6370 [facility] [id number] Information: 193092,U35103 METABOLIC PANEL, COMPREHENSI VE (42778)Ordered By: [employer] Worker on 11-05-2012 Albumin [Mass/Vol] 4.8 g/dL Normal 3.5-5.[address] [facility] Internal Medicine; [facility] Work Phone: Comment on above: PATIENT NOT FASTINGP ERFORMED BY: CODI Zaldivar6370 [facility] [id number] Albumin/Globulin [Mass ratio] 1.8 {ratio} Normal 1.1-2.5 [facility]; [facility] Work Phone: Comment on above: PATIENT NOT FASTINGP ERFORMED BY: CODI Mauricelin6370 [facility] [id number] ALP [Catalytic activity/Vol] 77 U/L Normal 25-150 [facility]; [facility] Work Phone: Comment on above: PATIENT NOT FASTINGP ERFORMED BY: CODI Mauricelin6370 [facility] [id number] ALT [Catalytic activity/Vol] 41 U/L Normal 0-44 [facility]; [facility] Work Phone: Comment on above: PATIENT NOT FASTINGP ERFORMED BY: CODI Mauricelin6370 [facility] [id number] AST [Catalytic activity/Vol] 30 U/L Normal 0-40 [facility]; [facility] Work Phone: Comment on above: PATIENT NOT FASTINGP ERFORMED BY: CB [facility] Rijetx1733 [address]uster RoadDublin [place] [id number] Bilirubin [Mass/Vol] 0.3 mg/dL Normal 0.0-1.2 Comp rehensive Internal Medicine; [facility] Work Phone: Comment on above: PATIENT NOT FASTINGP ERFORMED BY: CB [facility] Hwthyv5447 [address]uster RoadDublin [place] [id number] Calcium [Mass/Vol] 9.7 mg/dL Normal 8.7-10.[address] [facility] Internal Medicine; [facility] Work Phone: Comment on above: PATIENT NOT FASTINGP ERFORMED BY: CB [facility] Axxkzl6758 [address] RoadDublin [place] [id number] Chloride [Moles/Vol] 106 mmol/L Normal 97-108 [facility] rehensive Internal Medicine; [facility] Work Phone: Comment on above: PATIENT NOT FASTINGP ERFORMED BY: CB [facility] Hlvulr5789 [address]uster RoadDublin [place] [id number] CO2 [Moles/Vol] 19 mmol/L Abnormal 20-32 [facility] Internal Medicine; [facility] Work Phone: Comment on above: PATIENT NOT FASTINGP ERFORMED BY: CB [facility] Khgrsm0268 [address]uster RoadDublin [place] [id number] Creatinine [Mass/Vol] 0.97 mg/dL Normal 0.76-1.27 [facility]; [facility] Work Phone: Comment on above: PATIENT NOT FASTINGP ERFORMED BY: CB [facility] Hdjtgi4462 [address]uster RoadDublin [place] [id number] GFR/1.73 sq M.predicted among blacks CKD-EPI (S/P/Bld) [Vol rate/Area] 101 mL/min/1.73 Normal [facility]; [facility] Work Phone: Comment on above: PATIENT NOT FASTINGP ERFORMED BY: CB [facility] Haceqf0010 [address]uster RoadDublin [place] [id number] GFR/1.73 sq M.predicted among non-blacks CKD-EPI (S/P/Bld) [Vol rate/Area] 88 mL/min/1.73 Normal [facility]; [facility] Work Phone: Comment on above: PATIENT NOT FASTINGP ERFORMED BY: CODI LabCojohn Kjypwx5437 [address] RoadDublin [place] [id number] Globulin (S) [Mass/Vol] 2.6 g/dL Normal 1.5-4.5 [facility]; [facility] Work Phone: Comment on above: PATIENT NOT FASTINGP ERFORMED BY: CB [facility] Ykgkut8107 [address] RoadDublin [place] [id number] Glucose [Mass/Vol] 88 mg/dL Normal 65-99 [facility] stanlyive Internal Medicine; [facility] Work Phone: Comment on above: PATIENT NOT FASTINGP ERFORMED BY: CB [facility] Gnvqvf8461 [address] RoadCone Health Moses Cone Hospitalin [place] [id number] Potassium [Moles/Vol] 4.6 mmol/L Normal 3.5-5.2 [facility] prehensive Internal Medicine; [facility] Work Phone: Comment on above: PATIENT NOT FASTINGP ERFORMED BY: CB [facility] Uphivt4030 [address] Roadblin [place] [id number] Protein [Mass/Vol] 7.4 g/dL Normal 6.0-8.5 [facility] rust [facility]; [facility] Work Phone: Comment on above: PATIENT NOT FASTINGP ERFORMED BY: CB [facility] Fapofo5102 [address] RoadDublin [place] [id number] Sodium [Moles/Vol] 139 mmol/L Normal 134-144 [facility] stanlyive Internal Medicine; [facility] Work Phone: Comment on above: PATIENT NOT FASTINGP ERFORMED BY: CB [facility] Qbcivh2358 [address] RoadDublin [place] [id number] Urea nitrogen [Mass/Vol] 21 mg/dL Normal 6-24 [facility]; [facility] Work Phone: Comment on above: PATIENT NOT FASTINGP ERFORMED BY: CB [facility] Hxwosx2772 [address] RoadDublin [place] [id number] Urea nitrogen/Creatinine [Mass ratio] 22 mg/mg Abnormal 9-20 [facility]; [facility] Work Phone: Comment on above: PATIENT NOT FASTINGP ERFORMED BY: CODI Zaldivar6370 [facility] [id number] MICROALBUMINOrdered By: Syst Theatre Arts Professor on 11-05-2012 Albumin DL <= 20 mg/L (U) [Mass/Vol] 1.5 ug/mL Normal 0.0-17.0 [facility]; [facility] Work Phone: Comment on above: PATIENT NOT FASTINGP ERFORMED BY: CODI Zaldivar6370 [facility] [id number] Albumin/Creatinine (U) [Mass ratio] 2.1 {mg/g_creat} Normal 0.0-30.0 [facility]; [facility] Work Phone: Comment on above: PATIENT NOT FASTINGP ERFORMED BY: CODI Mauricelin6370 [facility] [id number] Creatinine (U) [Mass/Vol] 72.1 mg/dL Normal 22.0-328.0 [facility]; [facility] Work Phone: Comment on above: PATIENT NOT FASTINGP ERFORMED BY: CODI Zaldivar6370 [facility] [id number] TSH (74873)Ordered By: Larrye Theatre Arts Professor on 11-05-2012 TSH Qn 1.510 {uIU/mL} Normal 0.450-4.50 0 [facility]; [facility] Work Phone: Comment on above: PATIENT NOT FASTINGP ERFORMED BY: CODI LabAnna MauriceQlkkqi7524 [facility] [id number] URINALYSIS, W/ MICRO (44656) Ordered By: [employer] Worker on 11-05-2012 Appearance (U) Clear Normal Comprehens brayden Internal Medicine; [facility] Work Phone: Comment on above: PATIENT NOT FASTINGP ERFORMED BY: CODI LabAnna MauriceZmlbdj6832 [facility] [id number] Bilirubin Ql (U) Negative Normal Comprehe nsive Internal Medicine; [facility] Work Phone: Comment on above: PATIENT NOT FASTINGP ERFORMED BY: CODI Nakiajohn MauriceUtnpji5748 [facility] [id number] Color (U) Yellow Normal [facility]; [facility] Work Phone: Comment on above: PATIENT NOT FASTINGP ERFORMED BY: CODI Mauricelin6370 [facility] [id number] Glucose Ql (U) Negative Normal Comprehens brayden Internal [facility]; [facility] Work Phone: Comment on above: PATIENT NOT FASTINGP ERFORMED BY: CODI Mauricelin6370 [facility] [id number] Hemoglobin Ql (U) Negative Normal Compreh ensive Internal Medicine; [facility] Work Phone: Comment on above: PATIENT NOT FASTINGP ERFORMED BY: CODI Mauricelin6370 [facility] [id number] Ketones Ql (U) Negative Normal Comprehens brayden [facility]; [facility] Work Phone: Comment on above: PATIENT NOT FASTINGP ERFORMED BY: CODI Mauricelin6370 [facility] [id number] Leukocyte esterase Test strip Ql (U) Trace Abnormal [facility]; [facility] Work Phone: Comment on above: PATIENT NOT FASTINGP ERFORMED BY: CODI Mauricelin6370 [facility] [id number] Microscopic observation LM Nom (Urine sed) See below: Normal [facility]; [facility] Work Phone: Comment on above: PATIENT NOT FASTINGP ERFORMED BY: CODI PaulAnna MauriceBiftrc9840 [facility] [id number] Nitrite Ql (U) Negative Normal Comprehens brayden [facility]; [facility] Work Phone: Comment on above: PATIENT NOT FASTINGP ERFORMED BY: CODI Mauricelin6370 [facility] [id number] pH (U) 6.0 [pH] Normal 5.0-7.5 [facility]; [facility] Work Phone: Comment on above: PATIENT NOT FASTINGP ERFORMED BY: CODI Zaldivar6370 [facility] [place] [id number] Protein Ql (U) Negative Normal Comprehens brayden [facility]; [facility] Work Phone: Comment on above: PATIENT NOT FASTINGP ERFORMED BY: CODI Yee Hqgabm0582 [facility] [id number] Specific gravity (U) [Rel density] 1.018 1 Normal 1.005-1.03 0 [facility]; [facility] Work Phone: Comment on above: PATIENT NOT FASTINGP ERFORMED BY: CODI Yee Kkyprd0490 [facility] [id number] Urobilinogen (U) [Mass/Vol] 0.2 mg/dL Normal 0.0-1.9 [facility]; [facility] Work Phone: Comment on above: PATIENT NOT FASTINGP ERFORMED BY: CODI Zaldivar6370 [facility] [id number] PSA (PROSTATE SPECIFIC ANTIG EN) (49872)Ordered By: [employer] Worker on 12-09-2011 Prostate specific Ag [Mass/Vol] 3.0 ng/mL Normal 0.0-4.0 [facility]; [facility] Work Phone: Comment on above: Scary Mommy ECLIA methodol ogy. .According to the [employer] [employer], Serum PSA shoulddecrease and remain at undetectable levels after radicalprostatectomy. The AUA defines biochemical recurrence as an initialPSA value 0.2 ng/mL or greater followed by a subsequent confirmatoryPSA value 0.2 ng/mL or greater.Values obtained with different assay methods or kits cannot be usedinterchangeably. Results cannot be interpreted as absolute evidenceof the presence or absence of malignant disease. PATIENT NOT FASTINGP ERFORMED BY: LabCo Bofwpv8481 [facility] [id number] Information: [id number] Urinalysis, Office (49648)on 12-09-2011 Bilirubin Ql (U) Negative Normal Comprehe nsive Internal Medicine; [facility] Work Phone: Glucose Test strip (U) [Mass/Vol] Negative Normal [facility]; [facility] Work Phone: Hemoglobin Ql (U) Negative Normal Compreh ensive Internal Medicine; [facility] Work Phone: Ketones Ql (U) Negative Normal Comprehens brayden [facility]; [facility] Work Phone: Leukocyte esterase Test strip Ql (U) Negative Normal [facility]; [facility] Work Phone: Nitrite Ql (U) Negative Normal Comprehens br[facility]den [facility]; [facility] Work Phone: pH (U) 6.0 [pH] Normal [facility]; [facility] Work Phone: Protein Ql (U) Negative Normal Comprehens brayden [facility]; [facility] Work Phone: Specific gravity (U) [Rel density] 1.025 1 Normal [facility]; [facility] Work Phone: Urobilinogen (24H U) [Mass/Time] Normal Normal [facility]; [facility] Work Phone: CBC WITH MANUAL DIFF (45313) Ordered By: [employer] Worker on 01-14-2011 Basophils (Bld) [#/Vol] 0.0 10*3/uL Normal 0.0-0.2 [facility]; [facility] Work Phone: Comment on above: PATIENT WAS FASTINGP ERFORMED BY: CODI Echelon Qxguuw4953 [facility] [id number] Information: [id number] Basophils/100 WBC (Bld) 1 % Normal 0-3 [facility]; [facility] Work Phone: Comment on above: PATIENT WAS FASTINGP ERFORMED BY: CODI [employer]70 [facility] [id number] Information: [id number] Eosinophils (Bld) [#/Vol] 0.1 10*3/uL Normal 0.0-0.4 [facility]; [facility] Work Phone: Comment on above: PATIENT WAS FASTINGP ERFORMED BY: [address] [id number] Information: [id number] Eosinophils/100 WBC (Bld) 3 % Normal 0-7 [facility]; [facility] Work Phone: Comment on above: PATIENT WAS FASTINGP ERFORMED BY: [address] [id number] Information: [id number] Erythrocyte distribution width (RBC) [Ratio] 14.0 % Normal 11.7-15.0 [facility]; [facility] Work Phone: Comment on above: PATIENT WAS FASTINGP ERFORMED BY: [address] [id number] Information: [id number],[id number] Hematocrit (Bld) [Volume fraction] 45.4 % Normal 36.0-50.0 [facility]; [facility] Work Phone: Comment on above: PATIENT WAS FASTINGP ERFORMED BY: [address] [id number] Information: [id number],[id number] Hemoglobin (Bld) [Mass/Vol] 15.8 g/dL Normal 12.5-17.0 [facility]; [facility] Work Phone: Comment on above: PATIENT WAS FASTINGP ERFORMED BY: [address] [id number] Information: [id number] Immature granulocytes (Bld) [#/Vol] 0.0 10*3/uL Normal 0.0-0.1 [facility]; [facility] Work Phone: Comment on above: PATIENT WAS FASTINGP ERFORMED BY: CODI Yee Eydyva6907 [facility] [id number] Information: [id number] Immature granulocytes/100 WBC (Bld) 0 % Normal 0-1 [facility]; [facility] Work Phone: Comment on above: PATIENT WAS FASTINGP ERFORMED BY: [address] [id number] Information: [id number],[id number] Lymphocytes (Bld) [#/Vol] 1.4 10*3/uL Normal 0.7-4.5 [facility]; [facility] Work Phone: Comment on above: PATIENT WAS FASTINGP ERFORMED BY: CODI Yee Dpqghi[address] [id number] Information: [id number] Lymphocytes/100 WBC (Bld) 34 % Normal 14-46 [facility]; [facility] Work Phone: Comment on above: PATIENT WAS FASTINGP ERFORMED BY: CODI [address] [id number] Information: [id number] MCH (RBC) [Entitic mass] 29.9 pg Normal 27.0-34.0 [facility] Internal Medicine; [facility] Work Phone: Comment on above: PATIENT WAS FASTINGP ERFORMED BY: [place] 7532370 [facility] [id number] Information: [id number] MCHC (RBC) [Mass/Vol] 34.8 g/dL Normal 32.0-36.0 [facility]; [facility] Work Phone: Comment on above: PATIENT WAS FASTINGP ERFORMED BY: CODI [facility]eeJeff[facility]Bajgeu5894 [facility] [id number] Information: [id number] MCV (RBC) [Entitic vol] 86 fL Normal 80-98 [facility]; [facility] Work Phone: Comment on above: PATIENT WAS FASTINGP ERFORMED BY: CODI Zaldivar6370 [facility] [id number] Information: [id number],[id number] Monocytes (Bld) [#/Vol] 0.3 10*3/uL Normal 0.1-1.0 [facility]; [facility] Work Phone: Comment on above: PATIENT WAS FASTINGP ERFORMED BY: CODI Le [facility] [id number] Information: [id number] Monocytes/100 WBC (Bld) 7 % Normal 4-13 [facility]; [facility] Work Phone: Comment on above: PATIENT WAS FASTINGP ERFORMED BY: CODI Zaldivar6370 [facility] [id number] Information: [id number] Neutrophils (Bld) [#/Vol] 2.4 10*3/uL Normal 1.8-7.8 [facility]; [facility] Internal Medicine Work Phone: Comment on above: PATIENT WAS FASTINGP ERFORMED BY: CODI Zaldivar6370 [facility] [id number] Information: [id number],[id number] Neutrophils/100 WBC (Bld) 55 % Normal 40-74 [facility]; [facility] Internal Medicine Work Phone: Comment on above: PATIENT WAS FASTINGP ERFORMED BY: CODI Yee Dptaea8045 [facility] [id number] Information: [id number] Platelets (Bld) [#/Vol] 218 10*3/uL Normal 140-415 [facility]; [facility] Work Phone: Comment on above: PATIENT WAS FASTINGP ERFORMED BY: CODI Zaldivar6370 [facility] [id number] Information: [id number],[id number] RBC (Bld) [#/Vol] 5.28 10*6/uL Normal 4.10-5.60 [facility] Internal Medicine; [facility] Work Phone: Comment on above: PATIENT WAS FASTINGP ERFORMED BY: CODI LabAnna Zaldivar6370 [facility] [place] [id number] Information: [id number] WBC (Bld) [#/Vol] 4.3 10*3/uL Normal 4.0-10.5 Compre rust Internal Medicine; [facility] Work Phone: Comment on above: PATIENT WAS FASTINGP ERFORMED BY: CODI [facility] Xladhg1778 [facility] [place] [id number] Information: [id number],[id number] LIPID PANEL (11321)Ordered B y: [employer] Worker on 01-14-2011 Cholesterol [Mass/Vol] 302 mg/dL Abnormal 100-199 [facility]; [facility] Work Phone: Comment on above: PATIENT WAS FASTINGP ERFORMED BY: CODI LabAnna MauriceQhfyab2615 [facility] [id number] Cholesterol in HDL [Mass/Vol] 56 mg/dL Normal [facility]; [facility] Work Phone: Comment on above: According to ATP-III Guidelines, HDL-C >59 mg/dL is considered anegative risk factor for CHD. PATIENT WAS FASTINGP ERFORMED BY: CODI [facility] Cblqxt4934 [facility] [place] [id number] Cholesterol in LDL [Mass/Vol] 210 mg/dL Abnormal 0-99 [facility]; [facility] Work Phone: Comment on above: PATIENT WAS FASTINGP ERFORMED BY: CB [facility] Ssejzt6962 [address] [facility] [place] [id number] Cholesterol in LDL/Cholesterol in HDL [Mass ratio] 3.8 {ratio_units} Abnormal 0.0-3.6 [facility]; [facility] Work Phone: Comment on above: PATIENT WAS FASTINGP ERFORMED BY: CB [facility] Rnqgdl6481 [address]uster RoadDublin [place] [id number] Cholesterol in VLDL [Mass/Vol] 36 mg/dL Normal 5-40 [facility]; [facility] Work Phone: Comment on above: PATIENT WAS FASTINGP ERFORMED BY: CODI [facility] Ajobtc0060 [address]uster RoadDublin [place] [id number] Triglyceride [Mass/Vol] 178 mg/dL Abnormal 0-149 [facility]; [facility] Work Phone: Comment on above: PATIENT WAS FASTINGP ERFORMED BY: CODI [facility] Jsyobf9083 [address]uster RoadDublin [place] [id number] METABOLIC PANEL, COMPREHENSI VE ([id number])Ordered By: [employer] Worker on 01-14-2011 Albumin [Mass/Vol] 4.4 g/dL Normal 3.5-5.[address] [facility] Internal Medicine; [facility] Work Phone: Comment on above: PATIENT WAS FASTINGP ERFORMED BY: CODI [facility] Drvxbb2942 [address]uster RoadDublin [place] [id number] Albumin/Globulin [Mass ratio] 1.6 {ratio} Normal 1.1-2.5 [facility]; [facility] Work Phone: Comment on above: PATIENT WAS FASTINGP ERFORMED BY: CODI [facility] Gjvfpc0083 [address]uster RoadDublin [place] [id number] ALP [Catalytic activity/Vol] 70 U/L Normal 25-150 [facility]; [facility] Work Phone: Comment on above: PATIENT WAS FASTINGP ERFORMED BY: CODI [facility] Veguli5403 [address] RoadDublin [place] [id number] ALT [Catalytic activity/Vol] 26 U/L Normal 0-55 [facility]; [facility] Work Phone: Comment on above: PATIENT WAS FASTINGP ERFORMED BY: CODI [facility] Vhlpqq1247 [address] RoadDublin [place] [id number] AST [Catalytic activity/Vol] 21 U/L Normal 0-40 [facility]; [facility] Work Phone: Comment on above: PATIENT WAS FASTINGP ERFORMED BY: CODI [facility] Autpbc1885 [address] RoadDublin [place] [id number] Bilirubin [Mass/Vol] 0.3 mg/dL Normal 0.0-1.2 Comp rehensive Internal Medicine; [facility] Work Phone: Comment on above: PATIENT WAS FASTINGP ERFORMED BY: [facility] Tadlub9512 [address] RoadDublin [place] [id number] Calcium [Mass/Vol] 9.6 mg/dL Normal 8.7-10.2 [facility]; [facility] Work Phone: Comment on above: PATIENT WAS FASTINGP ERFORMED BY: [facility] Oogzpv4223 [address]uster RoadDublin [place] [id number] Chloride [Moles/Vol] 101 mmol/L Normal 97-108 Comp rehensive Internal Medicine; [facility] Work Phone: Comment on above: PATIENT WAS FASTINGP ERFORMED BY: [facility] Obyjxd0295 [address]uster RoadDublin [place] [id number] CO2 [Moles/Vol] 21 mmol/L Normal 20-32 [facility] Internal Medicine; [facility] Work Phone: Comment on above: PATIENT WAS FASTINGP ERFORMED BY: [facility] Nlmaoq8235 [facility] RoadCone Health [facility] Hospitalin [place] [id number] Creatinine [Mass/Vol] 0.98 mg/dL Normal 0.76-1.27 [facility]; [facility] Work Phone: Comment on above: PATIENT WAS FASTINGP ERFORMED BY: [facility] Wjthxt4556 [address] [facility] [place] [id number] GFR/1.73 sq M.predicted among blacks MDRD (S/P/Bld) [Vol rate/Area] mL/min/{1.73_m2} Normal [facility]; [facility] Work Phone: Comment on above: Note: Persistent red uction for 3 months or more in an eGFR<60 mL/min/1.73 m2 defines CKD. Patients with eGFR values>/=60 mL/min/1.73 m2 may also have CKD if evidence of persistentproteinuria is present. Additional information may be found [email or web address].org. PATIENT WAS FASTINGP ERFORMED BY: LabHelen [facility]6370 [facility] [id number] GFR/1.73 sq M.predicted MDRD (S/P/Bld) [Vol rate/Area] mL/min/{1.73_m2} Normal [facility]; [facility] Work Phone: Comment on above: PATIENT WAS FASTINGP ERFORMED BY: LabCarondelet HealthJcvodr1742 [facility] [id number] Globulin (S) [Mass/Vol] 2.8 g/dL Normal 1.5-4.5 [facility]; [facility] Work Phone: Comment on above: PATIENT WAS FASTINGP ERFORMED BY: LabHelen [facility]6370 [facility] [id number] Glucose [Mass/Vol] 92 mg/dL Normal 65-[address] [facility] Internal Medicine; [facility] Work Phone: Comment on above: PATIENT WAS FASTINGP ERFORMED BY: LabHelen [facility]6370 [facility] [id number] Potassium [Moles/Vol] 4.4 mmol/L Normal 3.5-5.2 [facility] prehensive Internal Medicine; [facility] Work Phone: Comment on above: PATIENT WAS FASTINGP ERFORMED BY: LabHelen [facility]6370 [facility] [id number] Protein [Mass/Vol] 7.2 g/dL Normal 6.0-8.[address] [facility] Internal Medicine; [facility] Work Phone: Comment on above: PATIENT WAS FASTINGP ERFORMED BY: LabMercy [facility] St[facility] Creeoz6257 [address] [facility] [place] [id number] Sodium [Moles/Vol] 137 mmol/L Normal 135-[address] [facility] Internal Medicine; [facility] Work Phone: Comment on above: PATIENT WAS FASTINGP ERFORMED BY: LabMercy Hospital St. [facility] Brbzpb8787 [address] [facility] [place] [id number] Urea nitrogen [Mass/Vol] 20 mg/dL Normal 6-24 [facility]; [facility] Work Phone: Comment on above: PATIENT WAS FASTINGP ERFORMED BY: CODI LabCojohn Slkcqz1977 [facility] [id number] Urea nitrogen/Creatinine [Mass ratio] 20 mg/mg Normal 9-20 [facility]; [facility] Work Phone: Comment on above: PATIENT WAS FASTINGP ERFORMED BY: CODI [facility] Smvlvb6155 [facility] [id number] MICROALBUMINOrdered By: [email or web address] em Theatre Arts Professor on 01-14-2011 Albumin DL <= 20 mg/L (U) [Mass/Vol] 3.8 ug/mL Normal 0.0-17.0 [facility]; [facility] Work Phone: Comment on above: PATIENT WAS FASTINGP ERFORMED BY: CODI LabCojohn MauriceStjwlb3971 [facility] [id number] Albumin/Creatinine (U) [Mass ratio] 2.6 {mg/g_creat} Normal 0.0-30.0 [facility]; [facility] Work Phone: Comment on above: PATIENT WAS FASTINGP ERFORMED BY: CODI LabCojohn Tangch5546 [facility] [id number] Creatinine (U) [Mass/Vol] 146.1 mg/dL Normal 22.0-328.0 [facility]; [facility] Work Phone: Comment on above: PATIENT WAS FASTINGP ERFORMED BY: CODI LabCo Egtdzt2204 [facility] [id number] TSH ([id number])Ordered By: [email or web address] m Theatre Arts Professor on 01-14-2011 TSH Qn 1.270 {uIU/mL} Normal 0.450-4.50 0 [facility]; [facility] Work Phone: Comment on above: PATIENT WAS FASTINGP ERFORMED BY: CODI LabCojohn Utdton4995 [facility] [id number] Urinalysis, Office ([id number])Or dered By: Camryn Chicas on 01-14-2011 Bilirubin Ql (U) Negative Normal Comprehe nsive Internal Medicine; [facility] Work Phone: Glucose Test strip (U) [Mass/Vol] Negative Normal [facility]; [facility] Work Phone: Hemoglobin Ql (U) Negative Normal Compreh ensive Internal Medicine; [facility] Work Phone: Ketones Ql (U) Negative Normal Comprehens brayden Internal Medicine; [facility] Work Phone: Leukocyte esterase Test strip Ql (U) Negative Normal [facility]; [facility] Work Phone: Nitrite Ql (U) Negative Normal Comprehens brayden [facility]; [facility] Work Phone: pH (U) 6.0 [pH] Normal [facility]; [facility] Work Phone: Protein Ql (U) Negative Normal Comprehens brayden Internal Medicine; [facility] Work Phone: Specific gravity (U) [Rel density] 1.020 1 Normal [facility]; [facility] Work Phone: Urobilinogen (24H U) [Mass/Time] Normal Normal [facility]; [facility] Work Phone: CBC (AUTO) ([id number])Ordered By : Yola Waite on 05-15-2009 Erythrocyte distribution width (RBC) [Ratio] 13.4 % Normal 11.7-15.0 [facility]; [facility] Work Phone: Comment on above: PATIENT NOT FASTINGC linical Information: ADD DRAW FEE [id number] ADD J [id number] PERFORMED BY: [facility]anderMartin [facility] [id number] Hematocrit (Bld) [Volume fraction] 43.9 % Normal 36.0-50.0 [facility]; [facility] Work Phone: Comment on above: PATIENT NOT FASTINGC linical Information: ADD DRAW FEE [id number] ADD J 75166 PERFORMED BY: [facility] WanderMartin [facility] [id number] Hemoglobin (Bld) [Mass/Vol] 15.1 g/dL Normal 12.5-17.0 [facility]; [facility] Work Phone: Comment on above: PATIENT NOT FASTINGC linical Information: ADD DRAW FEE [id number] ADD J [id number] PERFORMED BY: CODI DentalFran Mid-Atlantic PartnershipAnna MauriceYksagb1365 [facility] [id number] MCH (RBC) [Entitic mass] 30.1 pg Normal 27.0-34.0 [facility]; [facility] Work Phone: Comment on above: PATIENT NOT FASTINGC linical Information: ADD DRAW FEE [id number] ADD J 31669 PERFORMED BY: CODI DentalFran [facility]-Atlantic PartnershipMer[facility] Ekzgfy0632 [facility] [id number] MCHC (RBC) [Mass/Vol] 34.3 g/dL Normal 32.0-36.0 [facility] Internal Medicine; [facility] Work Phone: Comment on above: PATIENT NOT FASTINGC linical Information: ADD DRAW FEE [id number] ADD J 89665 PERFORMED BY: CODI Yee Ezfdrt5031 [facility] [id number] MCV (RBC) [Entitic vol] 88 fL Normal 80-98 [facility]; [facility] Work Phone: Comment on above: PATIENT NOT FASTINGC linical Information: ADD DRAW FEE [id number] ADD J 48393 PERFORMED BY: CODI Mauricelin6370 [facility] [id number] Platelets (Bld) [#/Vol] 218 10*3/uL Normal 140-415 [facility]; [facility] Work Phone: Comment on above: Please note refere nce interval change PATIENT NOT FASTINGC linical Information: ADD DRAW FEE [id number] ADD J 45928 PERFORMED BY: CODI Echelon[address] [id number] RBC (Bld) [#/Vol] 5.00 10*6/uL Normal 4.10-5.60 [facility] Internal Medicine; [facility] Work Phone: Comment on above: PATIENT NOT FASTINGC linical Information: ADD DRAW FEE [id number] ADD J 87714 PERFORMED BY: [employer]6370 [facility] ProgramMartin [facility] Hospital [id number] WBC (Bld) [#/Vol] 5.8 10*3/uL Normal 4.0-10.5 [facility] rust Internal Medicine; [facility] Work Phone: Comment on above: PATIENT NOT FASTINGC linical Information: ADD DRAW FEE [id number] ADD J 76543 PERFORMED BY: [employer]70 [facility]usterHipLogicMartin General Hospital [id number] TSH ([id number])Ordered By: Yola Waite on 05-15-2009 TSH Qn 1.450 {uIU/mL} Normal 0.450-4.50 0 [facility]; [facility] Work Phone: Comment on above: PATIENT NOT FASTINGP ERFORMED BY: [employer]70 [facility] ProgramMartin [facility] Hospital [id number] Vital Signs Date Time Vital Sign Value Performing Clinician Facility 04-20-2025 17:46-0400 Body temperature 97.2 [degF] Dr. Edwin Donald MD Work Phone: [facility] 04-20-2025 17:46-0400 Diastolic blood pressure 93 mm[Hg] Dr. Edwin Donald MD Work Phone: [facility] 04-20-2025 17:46-0400 Heart rate 50 /min Dr. Edwin Donald MD Work Phone: [facility] 04-20-2025 17:46-0400 Respiratory rate 18 /min Dr. Edwin Donald MD Work Phone: [facility] 04-20-2025 17:46-0400 SaO2% (BldA) [Mass fraction] 96 % Dr. Edwin Donald MD Work Phone: [facility] 04-20-2025 17:46-0400 Systolic blood pressure 157 mm[Hg] Dr. Edwin Donald MD Work Phone: [facility] 04-20-2025 14:28-0400 Body mass index (BMI) [Ratio] 34 kg/m2 Dr. Edwin Donald MD Work Phone: [phone] [place] [address] 04-20-2025 14:28-0400 Body weight 113.[address] Edwin Donald MD Work Phone: [phone] [place] [address] 04-20-2025 14:22-0400 Body height 182.[address] Edwin Donald MD Work Phone: [phone] [place] [address] 02-27-2025 05:12-0400 Body temperature 97.8 [degF] Dr. Edwin Donald MD Work Phone: [phone] [place] [address] 02-27-2025 05:12-0400 Diastolic blood pressure 77 mm[Hg] Dr. Edwin Donald MD Work Phone: 4(866)094-189857 [place] [address] 02-27-2025 05:12-0400 Heart rate 51 /min Dr. Edwin Donald MD Work Phone: 8(466)566-961957 [place] [address] 02-27-2025 05:12-0400 Respiratory rate 18 /min Dr. Edwin Donald MD Work Phone: 3(318)208-996762 [place] [address] 02-27-2025 05:12-0400 SaO2% (BldA) [Mass fraction] 97 % Dr. Edwin Donald MD Work Phone: 0(565)843-455157 [place] [address] 02-27-2025 05:12-0400 Systolic blood pressure 118 mm[Hg] Dr. Edwin Donald MD Work Phone: 7(827)247-364257 [place] [address] 02-27-2025 03:37-0400 Body height 182.[address] Edwin Donald MD Work Phone: 2(690)656-974062 [place] [address] 02-27-2025 03:37-0400 Body mass index (BMI) [Ratio] 33.3 kg/m2 Dr. Edwin Donald MD Work Phone: 5(279)199-823857 [place] [address] 02-27-2025 03:37-0400 Body weight 111.[address] Edwin Donald MD Work Phone: 8(425)872-198157 [place] [address] 02-17-2025 23:00-0400 Diastolic blood pressure 84 mm[Hg] Dr. Edwin Donald MD Work Phone: [facility] 02-17-2025 23:00-0400 Systolic blood pressure 139 mm[Hg] Dr. Edwin Donald MD Work Phone: [facility] 02-17-2025 19:55-0400 Body height 182.[address] Edwin Donald MD Work Phone: [facility] 02-17-2025 19:55-0400 Body mass index (BMI) [Ratio] 32.9 kg/m2 Dr. Edwin Donald MD Work Phone: 4(512)720-393262 [place] [address] 02-17-2025 19:55-0400 Body temperature 97.9 [degF] Dr. Edwin Donald MD Work Phone: 8(727)074-653462 [place] [address] 02-17-2025 19:55-0400 Body weight 110.[address] Edwin Donald MD Work Phone: 8(966)440-558662 [place] [address] 02-17-2025 19:55-0400 SaO2% (BldA) [Mass fraction] 98 % Dr. Edwin Donald MD Work Phone: [facility] 02-17-2025 14:45-0400 Body temperature 97.7 [degF] Dr. Edwin Donald MD Work Phone: [facility] 02-17-2025 14:45-0400 Diastolic blood pressure 97 mm[Hg] Dr. Edwin Donald MD Work Phone: [facility] 02-17-2025 14:45-0400 Heart rate 64 /min Dr. Edwin Donald MD Work Phone: [facility] 02-17-2025 14:45-0400 Respiratory rate 16 /min Dr. Edwin Donald MD Work Phone: [facility] 02-17-2025 14:45-0400 SaO2% (BldA) [Mass fraction] 99 % Dr. Edwin Donald MD Work Phone: [facility] 02-17-2025 14:45-0400 Systolic blood pressure 155 mm[Hg] Dr. Edwin Donald MD Work Phone: [facility] 02-17-2025 10:33-0400 Body height 182.[address] Edwin Donald MD Work Phone: [facility] 02-17-2025 10:33-0400 Body mass index (BMI) [Ratio] 32.5 kg/m2 Dr. Edwin Donald MD Work Phone: [facility] 02-17-2025 10:33-0400 Body weight 108.[address] Edwin Donald MD Work Phone: [facility] 01-08-2025 16:20-0500 Body temperature 97.3 [degF] Dr. Edwin Donald MD Work Phone: 4(295)356-393762 [place] [address] 01-08-2025 16:20-0500 Diastolic blood pressure 79 mm[Hg] Dr. Edwin Donald MD Work Phone: 7(934)705-707962 [place] [address] 01-08-2025 16:20-0500 Heart rate 87 /min Dr. Edwin Donald MD Work Phone: 5(249)964-772162 [place] [address] 01-08-2025 16:20-0500 Respiratory rate 20 /min Dr. Edwin Donald MD Work Phone: [facility] 01-08-2025 16:20-0500 SaO2% (BldA) [Mass fraction] 99 % Dr. Edwin Donald MD Work Phone: [facility] 01-08-2025 16:20-0500 Systolic blood pressure 138 mm[Hg] Dr. Edwin Donald MD Work Phone: [facility] 01-08-2025 14:29-0500 Body mass index (BMI) [Ratio] 33 kg/m2 Dr. Edwin Donald MD Work Phone: [facility] 01-08-2025 14:29-0500 Body weight 110.[address] Edwin Donald MD Work Phone: [facility] 01-07-2025 13:31-0500 Body height 182.9 cm Anders Robertson MD Work Phone: [facility] [employer] 01-07-2025 13:31-0500 Body mass index (BMI) [Ratio] 32.96 kg/m2 Anders Robertson MD Work Phone: [facility] [employer] 01-07-2025 13:31-0500 Body weight 110.22 kg Anders Robertson MD Work Phone: [employer] 01-07-2025 13:31-0500 Diastolic blood pressure 83 mm[Hg] Anders Robertson MD Work Phone: [facility] [employer] 01-07-2025 13:31-0500 Heart rate 86 /min Anders Robertson MD Work Phone: [employer] 01-07-2025 13:31-0500 Systolic blood pressure 136 mm[Hg] Anders Robertson MD Work Phone: [facility] [employer] 12-18-2024 10:23-0500 Body temperature 97.81 [degF] Jagjit Braga MD Work Phone: [employer] 12-18-2024 10:23-0500 Diastolic blood pressure 65 mm[Hg] Jagjit Braga MD Work Phone: [employer] 12-18-2024 10:23-0500 Heart rate 63 /min Jagjit Braga MD Work Phone: [employer] 12-18-2024 10:23-0500 Respiratory rate 15 /min Jagjit Braga MD Work Phone: [employer] 12-18-2024 10:23-0500 SaO2% (BldA) [Mass fraction] 97 % Jagjit Braga MD Work Phone: [employer] 12-18-2024 10:23-0500 Systolic blood pressure 125 mm[Hg] Jagjit Braga MD Work Phone: [employer] 12-17-2024 22:57-0500 Body height 182.9 cm Jagjti Braga MD Work Phone: [employer] 12-17-2024 22:57-0500 Body mass index (BMI) [Ratio] 32.55 kg/m2 Jagjit Braga MD Work Phone: [facility] 12-17-2024 22:57-0500 Body weight 108.86 kg Jagjit Braga MD Work Phone: [facility] 12-17-2024 21:17-0500 Diastolic blood pressure 93 mm[Hg] Dr. Edwin Donald MD Work Phone: [facility] 12-17-2024 21:17-0500 Heart rate 70 /min Dr. Edwin Donald MD Work Phone: [facility] 12-17-2024 21:17-0500 Respiratory rate 12 /min Dr. Edwin Donald MD Work Phone: [facility] 12-17-2024 21:17-0500 SaO2% (BldA) [Mass fraction] 98 % Dr. Edwin Donald MD Work Phone: [facility] 12-17-2024 21:17-0500 Systolic blood pressure 203 mm[Hg] Dr. Edwin Donald MD Work Phone: [facility] 12-17-2024 21:15-0500 Body temperature 98 [degF] Dr. Edwin Donald MD Work Phone: [facility] 12-17-2024 17:17-0500 Body mass index (BMI) [Ratio] 33.7 kg/m2 Dr. Edwin Donald MD Work Phone: [facility] 12-17-2024 17:17-0500 Body weight 112.[address] Edwin Donadl MD Work Phone: [facility] 12-02-2024 15:00-0500 Body temperature 98 [degF] Dr. Edwin Donald MD Work Phone: [facility] 12-02-2024 15:00-0500 Diastolic blood pressure 80 mm[Hg] Dr. Edwin Donald MD Work Phone: [facility] 12-02-2024 15:00-0500 Heart rate 57 /min Dr. Edwin Donald MD Work Phone: [facility] 12-02-2024 15:00-0500 Respiratory rate 16 /min Dr. Edwin Donald MD Work Phone: [facility] 12-02-2024 15:00-0500 SaO2% (BldA) [Mass fraction] 98 % Dr. Edwin Donald MD Work Phone: [facility] 12-02-2024 15:00-0500 Systolic blood pressure 136 mm[Hg] Dr. Edwin Donald MD Work Phone: [facility] 12-02-2024 11:42-0500 Body mass index (BMI) [Ratio] 32.3 kg/m2 Dr. Edwin Donald MD Work Phone: [facility] 12-02-2024 11:42-0500 Body weight 107.[address] Edwin Donald MD Work Phone: [facility] 04-07-2024 01:37-0400 Body temperature 98.1 [degF] [facility] 04-07-2024 01:37-0400 Diastolic blood pressure 79 mm[Hg] [facility] 04-07-2024 01:37-0400 Heart rate 56 /min [facility] 04-07-2024 01:37-0400 Respiratory rate 17 /min [facility] 04-07-2024 01:37-0400 SaO2% (BldA) [Mass fraction] 99 % [facility] 04-07-2024 01:37-0400 Systolic blood pressure 153 mm[Hg] [facility] 04-06-2024 22:35-0400 Body height 182.88 cm [facility] 04-06-2024 22:35-0400 Body mass index (BMI) [Ratio] 32.2 kg/m2 [facility] 04-06-2024 22:35-0400 Body weight 107.9 kg [facility] 02-27-2024 14:13-0400 Body height 182.9 cm Katerine Gamboa PA-C Work Phone: [facility] 02-27-2024 14:13-0400 Body temperature 97.81 [degF] Katerine Gamboa PA-C Work Phone: [facility] 02-27-2024 14:13-0400 Body weight 105.96 kg Katerine Gamboa PA-C Work Phone: [facility] 02-27-2024 14:13-0400 Diastolic blood pressure 90 mm[Hg] Katerine Gamboa PA-C Work Phone: [facility] 02-27-2024 14:13-0400 Heart rate 84 /min Katerine Gamboa PA-C Work Phone: [facility] 02-27-2024 14:13-0400 Respiratory rate 14 /min Katerine Gamboa PA-C Work Phone: [facility] 02-27-2024 14:13-0400 SaO2% (BldA) [Mass fraction] 97 % Katerine Gamboa PA-C Work Phone: [facility] 02-27-2024 14:13-0400 Systolic blood pressure 136 mm[Hg] Katerine Gamboa PA-C Work Phone: [facility] 09-04-2023 22:39-0400 Diastolic blood pressure 85 mm[Hg] [facility] 09-04-2023 22:39-0400 Systolic blood pressure 159 mm[Hg] [facility] 09-04-2023 21:48-0400 Heart rate 66 /min [facility] 09-04-2023 21:48-0400 Respiratory rate 12 /min [facility] 09-04-2023 21:48-0400 SaO2% (BldA) [Mass fraction] 95 % [facility] 09-04-2023 21:19-0400 Body height 182.88 cm [facility] 09-04-2023 21:19-0400 Body mass index (BMI) [Ratio] 31.8 kg/m2 [facility] 09-04-2023 21:19-0400 Body temperature 96.9 [degF] [facility] 09-04-2023 21:19-0400 Body weight 106.59 kg [facility] 09-09-2022 06:59-0400 Body temperature 99 [degF] Dr. Edwin Donald Work Phone: [facility] Work Phone: 09-09-2022 06:59-0400 Diastolic blood pressure 78 mm[Hg] Dr. Edwin Donald Work Phone: [facility] Work Phone: 09-09-2022 06:59-0400 Heart rate 59 /min Dr. Edwin Donald Work Phone: [facility] Work Phone: 09-09-2022 06:59-0400 Respiratory rate 18 /min Dr. Edwin Donald Work Phone: [facility] Work Phone: 09-09-2022 06:59-0400 SaO2% (BldA) [Mass fraction] 97 % Dr. Edwin Donald Work Phone: [facility] Work Phone: 09-09-2022 06:59-0400 Systolic blood pressure 138 mm[Hg] Dr. Edwin Donald Work Phone: [facility] Work Phone: 09-09-2022 05:56-0400 Body height 182.[address] Edwin Donald Work Phone: [facility] Work Phone: 09-09-2022 05:56-0400 Body mass index (BMI) [Ratio] 29.7 kg/m2 Dr. Edwin Donald Work Phone: [facility] Work Phone: 09-09-2022 05:56-0400 Body weight 99.[address] Edwin Donald Work Phone: [facility] Work Phone: 08-15-2022 13:25-0400 Body weight 102.[address] Edwin Donald Work Phone: [facility] Work Phone: 08-15-2022 13:23-0400 Body temperature 97.4 [degF] Dr. Edwin Donald Work Phone: [facility] Work Phone: 08-15-2022 13:23-0400 Diastolic blood pressure 75 mm[Hg] Dr. Edwin Donald Work Phone: [facility] Work Phone: 08-15-2022 13:23-0400 Heart rate 64 /min Dr. Edwin Donald Work Phone: [facility] Work Phone: 08-15-2022 13:23-0400 SaO2% (BldA) [Mass fraction] 98 % Dr. Edwin Donald Work Phone: [facility] Work Phone: 08-15-2022 13:23-0400 Systolic blood pressure 110 mm[Hg] Dr. Edwin Donald Work Phone: [facility] Work Phone: 08-02-2017 09:42-0400 BMI (Body Mass Index) 30.46 kg/m2 Jackson New MD [facility] Work Phone: 08-02-2017 09:42-0400 Body Temperature 97.9 [degF] Jackson New MD [facility] Work Phone: 08-02-2017 09:42-0400 BP Diastolic 87 mm[Hg] Jackson New MD [facility] Work Phone: 08-02-2017 09:42-0400 BP Systolic 137 mm[Hg] Jackson New MD [facility] Work Phone: 08-02-2017 09:42-0400 Height 182.88 cm Jackson New MD [facility] Work Phone: 08-02-2017 09:42-0400 Pulse (Heart Rate) 70 /min Jackson New MD [facility] Work Phone: 08-02-2017 09:42-0400 Respiratory Rate 20 /min Jackson New MD [facility] Work Phone: 08-02-2017 09:42-0400 Weight 101.88 kg Jackson New MD [facility] Work Phone: 12-26-2016 14:54-0500 BSA (Body Surface Area) 2.26 m2 Jackson New MD [facility] Work Phone: 12-07-2015 13:39-0500 Body height 182.88 cm Blanca Gar RN [facility] Work Phone: 12-07-2015 13:39-0500 Body mass index (BMI) [Ratio] 28.14 kg/m2 Blanca Gar RN [facility] Work Phone: 12-07-2015 13:39-0500 Body surface area Derived from formula 2.16 m2 Blanca Gar RN [facility] Work Phone: 12-07-2015 13:39-0500 Body weight 94.12 kg Blanca Gar RN [facility]; [facility] Work Phone: 12-07-2015 13:39-0500 Diastolic blood pressure 82 mm[Hg] Blanca Gar RN [facility]; [facility] Work Phone: Comment on above: Patient Position: Sitting; Cuff Location : Left Arm; Cuff Size: Large 12-07-2015 13:39-0500 Heart rate 97 /min Blanca Gar RN [facility]; [facility] Work Phone: Comment on above: Pattern: Regular 12-07-2015 13:39-0500 Respiratory rate 18 /min Blanca Gar RN [facility]; [facility] Work Phone: Comment on above: Pattern: Unlabored 12-07-2015 13:39-0500 SaO2% (BldA) [Mass fraction] 98 % Blanca Gar RN [facility]; [facility] Work Phone: Comment on above: Room air 12-07-2015 13:39-0500 Systolic blood pressure 124 mm[Hg] Blanca Gar RN [facility]; [facility] Work Phone: Comment on above: Patient Position: Sitting; Cuff Location : Left Arm; Cuff Size: Large 07-08-2015 13:08-0400 Body height 182.88 cm Linda Slarb OUTPATIENT PROGRAM COORDINATOR [facility]; [facility] Work Phone: 07-08-2015 13:08-0400 Body mass index (BMI) [Ratio] 28.96 kg/m2 Linda Slarb OUTPATIENT PROGRAM COORDINATOR [facility] Work Phone: 07-08-2015 13:08-0400 Body surface area Derived from formula 2.19 m2 Linda Slarb OUTPATIENT PROGRAM COORDINATOR [facility]; [facility] Work Phone: 07-08-2015 13:08-0400 Body temperature 97 [degF] Linda Slarb OUTPATIENT PROGRAM COORDINATOR [facility] Work Phone: 07-08-2015 13:08-0400 Body weight 96.84 kg Linda Slarb OUTPATIENT PROGRAM COORDINATOR [facility] Work Phone: 07-08-2015 13:08-0400 Diastolic blood pressure 76 mm[Hg] Linda Slarb OUTPATIENT PROGRAM COORDINATOR [facility]; [facility] Work Phone: Comment on above: Patient Position: Sitting; Cuff Location : Left Arm; Cuff Size: Standard 07-08-2015 13:08-0400 Heart rate 79 /min Linda Slarb OUTPATIENT PROGRAM COORDINATOR [facility]; [facility] Work Phone: Comment on above: Pattern: Regular 07-08-2015 13:08-0400 Respiratory rate 16 /min Linda Slarb OUTPATIENT PROGRAM COORDINATOR [facility]; [facility] Work Phone: Comment on above: Pattern: Unlabored 07-08-2015 13:08-0400 SaO2% (BldA) [Mass fraction] 98 % Linda Slarb OUTPATIENT PROGRAM COORDINATOR [facility]; [facility] Work Phone: Comment on above: Room air 07-08-2015 13:08-0400 Systolic blood pressure 116 mm[Hg] Linda Slarb OUTPATIENT PROGRAM COORDINATOR [facility]; [facility] Work Phone: Comment on above: Patient Position: Sitting; Cuff Location : Left Arm; Cuff Size: Standard 2015 09:44-0400 Body height 182.88 cm Linda Slarb OUTPATIENT PROGRAM COORDINATOR [facility]; [facility] Work Phone: 2015 09:44-0400 Body mass index (BMI) [Ratio] 28.96 kg/m2 Linda Slarb OUTPATIENT PROGRAM COORDINATOR [facility]; [facility] Work Phone: 2015 09:44-0400 Body surface area Derived from formula 2.19 m2 Linda Slarb OUTPATIENT PROGRAM COORDINATOR [facility]; [facility] Work Phone: 2015 09:44-0400 Body temperature 97.7 [degF] Linda Slarb OUTPATIENT PROGRAM COORDINATOR [facility]; [facility] Work Phone: 2015 09:44-0400 Body weight 96.84 kg Linda Slarb OUTPATIENT PROGRAM COORDINATOR [facility]; [facility] Work Phone: 2015 09:44-0400 Diastolic blood pressure 84 mm[Hg] Linda Slarb OUTPATIENT PROGRAM COORDINATOR [facility]; [facility] Work Phone: Comment on above: Patient Position: Sitting; Cuff Location : Left Arm; Cuff Size: Standard 2015 09:44-0400 Heart rate 73 /min Linda Slarb OUTPATIENT PROGRAM COORDINATOR [facility]; [facility] Work Phone: Comment on above: Pattern: Regular 2015 09:44-0400 Respiratory rate 18 /min Linda Slarb OUTPATIENT PROGRAM COORDINATOR [facility]; [facility] Work Phone: Comment on above: Pattern: Unlabored 2015 09:44-0400 SaO2% (BldA) [Mass fraction] 99 % Linda Slarb OUTPATIENT PROGRAM COORDINATOR [facility]; [facility] Work Phone: Comment on above: Room air 2015 09:44-0400 Systolic blood pressure 136 mm[Hg] Linda Slarb OUTPATIENT PROGRAM COORDINATOR [facility]; [facility] Work Phone: Comment on above: Patient Position: Sitting; Cuff Location : Left Arm; Cuff Size: Standard 04-03-2015 08:40-0400 Body height 182.88 cm Linda Ericrb OUTPATIENT PROGRAM COORDINATOR [facility]; [facility] Work Phone: 04-03-2015 08:40-0400 Body mass index (BMI) [Ratio] 28.35 kg/m2 Linda Slarb OUTPATIENT PROGRAM COORDINATOR [facility]; [facility] Work Phone: 04-03-2015 08:40-0400 Body surface area Derived from formula 2.17 m2 Linda Slarb OUTPATIENT PROGRAM COORDINATOR [facility]; [facility] Work Phone: 04-03-2015 08:40-0400 Body temperature 96.8 [degF] Linda Slarb OUTPATIENT PROGRAM COORDINATOR [facility]; [facility] Work Phone: 04-03-2015 08:40-0400 Body weight 94.8 kg Linda Slarb OUTPATIENT PROGRAM COORDINATOR [facility]; [facility] Work Phone: 04-03-2015 08:40-0400 Diastolic blood pressure 78 mm[Hg] Linda Slarb OUTPATIENT PROGRAM COORDINATOR [facility]; [facility] Work Phone: Comment on above: Patient Position: Sitting; Cuff Location : Left Arm; Cuff Size: Standard 04-03-2015 08:40-0400 Heart rate 77 /min Linda Slarb OUTPATIENT PROGRAM COORDINATOR [facility]; [facility] Work Phone: Comment on above: Pattern: Regular 04-03-2015 08:40-0400 Respiratory rate 18 /min Linda Slarb OUTPATIENT PROGRAM COORDINATOR [facility]; [facility] Work Phone: Comment on above: Pattern: Unlabored 04-03-2015 08:40-0400 SaO2% (BldA) [Mass fraction] 98 % Linda Slarb OUTPATIENT PROGRAM COORDINATOR [facility]; [facility] Work Phone: Comment on above: Room air 04-03-2015 08:40-0400 Systolic blood pressure 110 mm[Hg] Linda Slarb OUTPATIENT PROGRAM COORDINATOR [facility]; [facility] Work Phone: Comment on above: Patient Position: Sitting; Cuff Location : Left Arm; Cuff Size: Standard 03-13-2015 10:24-0400 Body height 182.88 cm Amber Galeano DO Work Phone: [facility] Work Phone: 03-13-2015 10:24-0400 Body mass index (BMI) [Ratio] 28.35 kg/m2 Amber Waleska DO Work Phone: [facility]; [facility] Work Phone: 03-13-2015 10:24-0400 Body surface area Derived from formula 2.17 m2 Amber Galeano DO Work Phone: [facility]; [facility] Work Phone: 03-13-2015 10:24-0400 Body weight 94.8 kg Amber Gardneron DO Work Phone: [facility]; [facility] Work Phone: 03-13-2015 10:24-0400 Diastolic blood pressure 70 mm[Hg] Amber Galeano DO Work Phone: [facility]; [facility] Work Phone: Comment on above: Patient Position: Sitting; Cuff Location : Left Arm; Cuff Size: Standard 03-13-2015 10:24-0400 Heart rate 78 /min Amber Galeano DO Work Phone: [facility]; [facility] Work Phone: Comment on above: Pattern: Regular 03-13-2015 10:24-0400 Respiratory rate 16 /min Amber Galeano DO Work Phone: [facility]; [facility] Work Phone: 03-13-2015 10:24-0400 SaO2% (BldA) [Mass fraction] 98 % Amber Gardneron DO Work Phone: [facility]; [facility] Work Phone: Comment on above: Room air 03-13-2015 10:24-0400 Systolic blood pressure 120 mm[Hg] Amber Gardneron DO Work Phone: [facility]; [facility] Work Phone: Comment on above: Patient Position: Sitting; Cuff Location : Left Arm; Cuff Size: Standard 03-02-2015 09:28-0400 Body height 182.88 cm Amber Gardneron DO Work Phone: [facility]; [facility] Work Phone: 03-02-2015 09:28-0400 Body mass index (BMI) [Ratio] 28.35 kg/m2 Amber Waleska DO Work Phone: [facility]; [facility] Work Phone: 03-02-2015 09:28-0400 Body surface area Derived from formula 2.17 m2 Amber Galeano DO Work Phone: [facility]; [facility] Work Phone: 03-02-2015 09:28-0400 Body temperature 98.3 [degF] Amber Galeano DO Work Phone: [facility]; [facility] Work Phone: Comment on above: Method: Oral 03-02-2015 09:28-0400 Body weight 94.8 kg Amber Galeano DO Work Phone: [facility]; [facility] Work Phone: 03-02-2015 09:28-0400 Diastolic blood pressure 72 mm[Hg] Amber Gardneron DO Work Phone: [facility]; [facility] Work Phone: Comment on above: Patient Position: Sitting; Cuff Location : Left Arm; Cuff Size: Standard 03-02-2015 09:28-0400 Heart rate 66 /min Amber Galeano DO Work Phone: [facility]; [facility] Work Phone: Comment on above: Pattern: Regular 03-02-2015 09:28-0400 Respiratory rate 15 /min Amber Galeano DO Work Phone: [facility]; [facility] Work Phone: 03-02-2015 09:28-0400 SaO2% (BldA) [Mass fraction] 98 % Amber Galeano DO Work Phone: [facility]; [facility] Work Phone: Comment on above: Room air 03-02-2015 09:28-0400 Systolic blood pressure 122 mm[Hg] Amber Galeano DO Work Phone: [facility]; [facility] Work Phone: Comment on above: Patient Position: Sitting; Cuff Location : Left Arm; Cuff Size: Standard 02-18-2015 09:22-0400 Body height 182.88 cm Linda John YAÑEZN [facility]; [facility] Work Phone: 02-18-2015 09:22-0400 Body mass index (BMI) [Ratio] 28.35 kg/m2 Linda Slarb OUTPATIENT PROGRAM COORDINATOR [facility]; [facility] Work Phone: 02-18-2015 09:22-0400 Body surface area Derived from formula 2.17 m2 Linda Slarb OUTPATIENT PROGRAM COORDINATOR [facility]; [facility] Work Phone: 02-18-2015 09:22-0400 Body temperature 97.6 [degF] Linda Slarb OUTPATIENT PROGRAM COORDINATOR [facility]; [facility] Work Phone: 02-18-2015 09:22-0400 Body weight 94.8 kg Linda Slarb OUTPATIENT PROGRAM COORDINATOR [facility]; [facility] Work Phone: 02-18-2015 09:22-0400 Diastolic blood pressure 78 mm[Hg] Linda Slarb OUTPATIENT PROGRAM COORDINATOR [facility]; [facility] Work Phone: Comment on above: Patient Position: Sitting; Cuff Location : Left Arm; Cuff Size: Standard 02-18-2015 09:22-0400 Heart rate 85 /min Linda Slarb OUTPATIENT PROGRAM COORDINATOR [facility]; [facility] Work Phone: Comment on above: Pattern: Regular 02-18-2015 09:22-0400 Respiratory rate 16 /min Linda Lopez LPN [facility]; [facility] Work Phone: Comment on above: Pattern: Unlabored 02-18-2015 09:22-0400 SaO2% (BldA) [Mass fraction] 98 % Linda Lopez OUTPATIENT PROGRAM COORDINATOR [facility]; [facility] Work Phone: Comment on above: Room air 02-18-2015 09:22-0400 Systolic blood pressure 118 mm[Hg] Linda Lopez OUTPATIENT PROGRAM COORDINATOR [facility]; [facility] Work Phone: Comment on above: Patient Position: Sitting; Cuff Location : Left Arm; Cuff Size: Standard 10-27-2014 15:35-0500 Body height 182.88 cm Amber Galeano DO Work Phone: [facility]; [facility] Work Phone: 10-27-2014 15:35-0500 Body mass index (BMI) [Ratio] 30.3 kg/m2 Amber Gardneron DO Work Phone: [facility]; [facility] Work Phone: 10-27-2014 15:35-0500 Body surface area Derived from formula 2.23 m2 Amber Gardneron DO Work Phone: [facility]; [facility] Work Phone: 10-27-2014 15:35-0500 Body temperature 98.2 [degF] Amber Gardneron DO Work Phone: [facility]; [facility] Work Phone: Comment on above: Method: Oral 10-27-2014 15:35-0500 Body weight 101.35 kg Amber Gardneron DO Work Phone: [facility]; [facility] Work Phone: 10-27-2014 15:35-0500 Diastolic blood pressure 80 mm[Hg] Amber Waleska DO Work Phone: [facility]; [facility] Work Phone: Comment on above: Patient Position: Sitting; Cuff Location : Left Arm; Cuff Size: Standard 10-27-2014 15:35-0500 Heart rate 70 /min Amber Galeano DO Work Phone: [facility]; [facility] Work Phone: Comment on above: Pattern: Regular 10-27-2014 15:35-0500 Respiratory rate 16 /min Amber Galeano DO Work Phone: [facility]; [facility] Work Phone: 10-27-2014 15:35-0500 SaO2% (BldA) [Mass fraction] 98 % Amber Galeano DO Work Phone: [facility]; [facility] Work Phone: Comment on above: Room air 10-27-2014 15:35-0500 Systolic blood pressure 122 mm[Hg] Amber Galeano DO Work Phone: [facility]; [facility] Work Phone: Comment on above: Patient Position: Sitting; Cuff Location : Left Arm; Cuff Size: Standard 09-26-2014 13:54-0400 Body height 182.88 cm Amber Galeano DO Work Phone: [facility]; [facility] Work Phone: 09-26-2014 13:54-0400 Body mass index (BMI) [Ratio] 30.3 kg/m2 Amber Galeano DO Work Phone: [facility]; [facility] Work Phone: 09-26-2014 13:54-0400 Body surface area Derived from formula 2.23 m2 Amber Galeano DO Work Phone: [facility]; [facility] Work Phone: 09-26-2014 13:54-0400 Body temperature 97.7 [degF] Amber Galeano DO Work Phone: [facility]; [facility] Work Phone: Comment on above: Method: Oral 09-26-2014 13:54-0400 Body weight 101.35 kg Amber Galeano DO Work Phone: [facility]; [facility] Work Phone: 09-26-2014 13:54-0400 Diastolic blood pressure 78 mm[Hg] Amber Gardneron DO Work Phone: [facility]; [facility] Work Phone: Comment on above: Patient Position: Sitting; Cuff Location : Left Arm; Cuff Size: Standard 09-26-2014 13:54-0400 Heart rate 72 /min Amber Gardneron DO Work Phone: [facility]; [facility] Work Phone: Comment on above: Pattern: Regular 09-26-2014 13:54-0400 Respiratory rate 16 /min Amber Galeano DO Work Phone: [facility]; [facility] Work Phone: 09-26-2014 13:54-0400 SaO2% (BldA) [Mass fraction] 98 % Amber Galeano DO Work Phone: [facility]; [facility] Work Phone: Comment on above: Room air 09-26-2014 13:54-0400 Systolic blood pressure 134 mm[Hg] Amber Galeano DO Work Phone: [facility]; [facility] Work Phone: Comment on above: Patient Position: Sitting; Cuff Location : Left Arm; Cuff Size: Standard 09-09-2014 08:47-0400 Body height 182.88 cm Amber Gardneron DO Work Phone: [facility]; [facility] Work Phone: Comment on above: I just took my meds at 730 09-09-2014 08:47-0400 Body mass index (BMI) [Ratio] 30.3 kg/m2 Amber Waleska DO Work Phone: [facility]; [facility] Work Phone: Comment on above: I just took my meds at 730 09-09-2014 08:47-0400 Body surface area Derived from formula 2.23 m2 Amber Galeano DO Work Phone: [facility]; [facility] Work Phone: Comment on above: I just took my meds at 730 09-09-2014 08:47-0400 Body temperature 98 [degF] Amber Galeano DO Work Phone: [facility]; [facility] Work Phone: Comment on above: Method: Oral I just took my med s at 730 09-09-2014 08:47-0400 Body weight 101.35 kg Amber Galeano DO Work Phone: [facility]; [facility] Work Phone: Comment on above: I just took my meds at 730 09-09-2014 08:47-0400 Diastolic blood pressure 90 mm[Hg] Amber Galeano DO Work Phone: [facility]; [facility] Work Phone: Comment on above: Patient Position: Sitting; Cuff Location : Left Arm; Cuff Size: Standard I just took my med s at 730 09-09-2014 08:47-0400 Heart rate 70 /min Amber Galeano DO Work Phone: [facility]; [facility] Work Phone: Comment on above: Pattern: Regular I just took my med s at 730 09-09-2014 08:47-0400 Respiratory rate 16 /min Amber Galeano DO Work Phone: [facility]; [facility] Work Phone: Comment on above: I just took my meds at 730 09-09-2014 08:47-0400 SaO2% (BldA) [Mass fraction] 98 % Amber Galeano DO Work Phone: [facility]; [facility] Work Phone: Comment on above: Room air I just took my med s at 730 09-09-2014 08:47-0400 Systolic blood pressure 140 mm[Hg] Amber Galeano DO Work Phone: [facility]; [facility] Work Phone: Comment on above: Patient Position: Sitting; Cuff Location : Left Arm; Cuff Size: Standard I just took my med s at 730 08-26-2014 14:16-0400 Body height 182.88 cm Amber Galeano DO Work Phone: [facility]; [facility] Work Phone: 08-26-2014 14:16-0400 Body mass index (BMI) [Ratio] 30.3 kg/m2 Amber Galeano DO Work Phone: [facility]; [facility] Work Phone: 08-26-2014 14:16-0400 Body surface area Derived from formula 2.23 m2 Amber Galeano DO Work Phone: [facility]; [facility] Work Phone: 08-26-2014 14:16-0400 Body temperature 97.4 [degF] Amber Galeano DO Work Phone: [facility]; [facility] Work Phone: Comment on above: Method: Oral 08-26-2014 14:16-0400 Body weight 101.35 kg Amber Galeano DO Work Phone: [facility]; [facility] Work Phone: 08-26-2014 14:16-0400 Diastolic blood pressure 80 mm[Hg] Amber Galeano DO Work Phone: [facility]; [facility] Work Phone: Comment on above: Patient Position: Sitting; Cuff Location : Left Arm; Cuff Size: Standard 08-26-2014 14:16-0400 Heart rate 68 /min Amber Galeano DO Work Phone: [facility]; [facility] Work Phone: Comment on above: Pattern: Regular 08-26-2014 14:16-0400 Respiratory rate 15 /min Amber Galeano DO Work Phone: [facility]; [facility] Work Phone: 08-26-2014 14:16-0400 SaO2% (BldA) [Mass fraction] 98 % Amber Gardneron DO Work Phone: [facility]; [facility] Work Phone: Comment on above: Room air 08-26-2014 14:16-0400 Systolic blood pressure 124 mm[Hg] Amber Galeano DO Work Phone: [facility]; [facility] Work Phone: Comment on above: Patient Position: Sitting; Cuff Location : Left Arm; Cuff Size: Standard 08-12-2014 08:49-0400 Body height 182.88 cm Amber Galeano DO Work Phone: [facility]; [facility] Work Phone: 08-12-2014 08:49-0400 Body mass index (BMI) [Ratio] 30.3 kg/m2 Amber Galeano DO Work Phone: [facility]; [facility] Work Phone: 08-12-2014 08:49-0400 Body surface area Derived from formula 2.23 m2 Amber Gardneron DO Work Phone: [facility]; [facility] Work Phone: 08-12-2014 08:49-0400 Body temperature 97 [degF] Amber Galeano DO Work Phone: [facility]; [facility] Work Phone: Comment on above: Method: Oral 08-12-2014 08:49-0400 Body weight 101.35 kg Amber Galeano DO Work Phone: [facility]; [facility] Work Phone: 08-12-2014 08:49-0400 Diastolic blood pressure 72 mm[Hg] Amber Waleska DO Work Phone: [facility]; [facility] Work Phone: Comment on above: Patient Position: Sitting; Cuff Location : Left Arm; Cuff Size: Standard 08-12-2014 08:49-0400 Heart rate 64 /min Amber Galeano DO Work Phone: [facility]; [facility] Work Phone: Comment on above: Pattern: Regular 08-12-2014 08:49-0400 Respiratory rate 15 /min Amber Galeano DO Work Phone: [facility]; [facility] Work Phone: 08-12-2014 08:49-0400 SaO2% (BldA) [Mass fraction] 98 % Amber Galeano DO Work Phone: [facility]; [facility] Work Phone: Comment on above: Room air 08-12-2014 08:49-0400 Systolic blood pressure 130 mm[Hg] Amber Galeano DO Work Phone: [facility]; [facility] Work Phone: Comment on above: Patient Position: Sitting; Cuff Location : Left Arm; Cuff Size: Standard 08-04-2014 16:31-0400 Body height 182.88 cm Camryn Chicas RN [facility]; [facility] Work Phone: 08-04-2014 16:31-0400 Body mass index (BMI) [Ratio] 30.3 kg/m2 Camryn Chicas RN [facility]; [facility] Work Phone: 08-04-2014 16:31-0400 Body surface area Derived from formula 2.23 m2 Camryn Chicas RN [facility]; [facility] Work Phone: 08-04-2014 16:31-0400 Body temperature 98.4 [degF] [facility]; [facility] Work Phone: Comment on above: Method: Temporal 08-04-2014 16:31-0400 Body weight 101.35 kg Camryn Chicas RN [facility]; [facility] Work Phone: 08-04-2014 16:31-0400 Diastolic blood pressure 80 mm[Hg] Camryn Chicas RN [facility]; [facility] Work Phone: Comment on above: Patient Position: Sitting; Cuff Location : Left Arm; Cuff Size: Standard 08-04-2014 16:31-0400 Heart rate 84 /min Camryn Chicas RN [facility]; [facility] Work Phone: Comment on above: Pattern: Regular 08-04-2014 16:31-0400 Respiratory rate 16 /min Camryn Chicas RN [facility]; [facility] Work Phone: Comment on above: Pattern: Unlabored 08-04-2014 16:31-0400 SaO2% (BldA) [Mass fraction] 98 % Camryn Chicas RN [facility]; [facility] Work Phone: Comment on above: Room air 08-04-2014 16:31-0400 Systolic blood pressure 144 mm[Hg] [facility]; [facility] Work Phone: Comment on above: Patient Position: Sitting; Cuff Location : Left Arm; Cuff Size: Standard 07-08-2014 15:17-0400 Body height 182.88 cm Ellen Couch [facility]; [facility] Work Phone: 07-08-2014 15:17-0400 Body mass index (BMI) [Ratio] 30.3 kg/m2 Ellen Couch [facility]; [facility] Work Phone: 07-08-2014 15:17-0400 Body surface area Derived from formula 2.23 m2 Ellen Couch [facility]; [facility] Work Phone: 07-08-2014 15:17-0400 Body weight 101.35 kg Ellen Couch [facility]; [facility] Work Phone: 07-08-2014 15:17-0400 Diastolic blood pressure 92 mm[Hg] Ellen Couch CABLE TOWER OPERATOR [facility]; [facility] Work Phone: Comment on above: Patient Position: Sitting; Cuff Location : Left Arm; Cuff Size: Standard 07-08-2014 15:17-0400 Heart rate 73 /min Ellen Couch [facility]; [facility] Work Phone: Comment on above: Pattern: Regular 07-08-2014 15:17-0400 Respiratory rate 16 /min Ellen Couch [facility]; [facility] Work Phone: Comment on above: Pattern: Unlabored 07-08-2014 15:17-0400 SaO2% (BldA) [Mass fraction] 98 % Ellen Couch [facility]; [facility] Work Phone: Comment on above: Room air 07-08-2014 15:17-0400 Systolic blood pressure 130 mm[Hg] Ellen Couch [facility]; [facility] Work Phone: Comment on above: Patient Position: Sitting; Cuff Location : Left Arm; Cuff Size: Standard 07-01-2014 15:240400 Body height 182.88 cm Ellen Couch [facility]; [facility] Work Phone: 07-01-2014 15:24-0400 Body mass index (BMI) [Ratio] 30.3 kg/m2 Ellen Couch [facility]; [facility] Work Phone: 07-01-2014 15:24-0400 Body surface area Derived from formula 2.23 m2 Ellen Couch [facility]; [facility] Work Phone: 07-01-2014 15:24-0400 Body temperature 98 [degF] Ellen Couch [facility]; [facility] Work Phone: Comment on above: Method: Oral 07-01-2014 15:240400 Body weight 101.35 kg Ellen Couch [facility]; [facility] Work Phone: 07-01-2014 15:24-0400 Diastolic blood pressure 100 mm[Hg] Ellen Couch [facility]; [facility] Work Phone: Comment on above: Patient Position: Sitting; Cuff Location : Left Arm; Cuff Size: Standard 07-01-2014 15:24-0400 Heart rate 70 /min Ellen Couch [facility]; [facility] Work Phone: Comment on above: Pattern: Regular 07-01-2014 15:24-0400 Respiratory rate 16 /min Ellen Couch [facility]; [facility] Work Phone: Comment on above: Pattern: Unlabored 07-01-2014 15:24-0400 SaO2% (BldA) [Mass fraction] 97 % Ellen Couch [facility]; [facility] Work Phone: Comment on above: Room air 07-01-2014 15:24-0400 Systolic blood pressure 142 mm[Hg] Ellen Couch [facility]; [facility] Work Phone: Comment on above: Patient Position: Sitting; Cuff Location : Left Arm; Cuff Size: Standard 06-23-2014 11:33-0400 Body height 182.88 cm Amber Galeano DO Work Phone: [facility]; [facility] Work Phone: 06-23-2014 11:33-0400 Body mass index (BMI) [Ratio] 30.3 kg/m2 Amber Gardneron DO Work Phone: [facility]; [facility] Work Phone: 06-23-2014 11:33-0400 Body surface area Derived from formula 2.23 m2 Amber Waleska DO Work Phone: [facility]; [facility] Work Phone: 06-23-2014 11:33-0400 Body temperature 98 [degF] Amber Gardneron DO Work Phone: [facility]; [facility] Work Phone: Comment on above: Method: Oral 06-23-2014 11:33-0400 Body weight 101.35 kg Amber Galeano DO Work Phone: [facility]; [facility] Work Phone: 06-23-2014 11:33-0400 Diastolic blood pressure 80 mm[Hg] Amber Galeano DO Work Phone: [facility]; [facility] Work Phone: Comment on above: Patient Position: Sitting; Cuff Location : Left Arm; Cuff Size: Standard 06-23-2014 11:33-0400 Heart rate 70 /min Amber Galeano DO Work Phone: [facility]; [facility] Work Phone: Comment on above: Pattern: Regular 06-23-2014 11:33-0400 Respiratory rate 16 /min Amber Galeano DO Work Phone: [facility]; [facility] Work Phone: 06-23-2014 11:33-0400 SaO2% (BldA) [Mass fraction] 97 % Amber Galeano DO Work Phone: [facility]; [facility] Work Phone: Comment on above: Room air 06-23-2014 11:33-0400 Systolic blood pressure 136 mm[Hg] Amber Galeano DO Work Phone: [facility]; [facility] Work Phone: Comment on above: Patient Position: Sitting; Cuff Location : Left Arm; Cuff Size: Standard 05-21-2014 14:48-0400 Height 182.88 cm Jackson New MD [facility] Work Phone: 03-12-2014 09:00-0400 Body height 182.88 cm Amber Galeano DO Work Phone: [facility]; [facility] Work Phone: 03-12-2014 09:00-0400 Body mass index (BMI) [Ratio] 29.78 kg/m2 Amber Galeano DO Work Phone: [facility]; [facility] Work Phone: 03-12-2014 09:00-0400 Body surface area Derived from formula 2.22 m2 Amber Galeano DO Work Phone: [facility]; [facility] Work Phone: 03-12-2014 09:00-0400 Body temperature 97.7 [degF] Amber Galeano DO Work Phone: [facility]; [facility] Work Phone: Comment on above: Method: Oral 03-12-2014 09:00-0400 Body weight 99.59 kg Amber Galeano DO Work Phone: [facility]; [facility] Work Phone: 03-12-2014 09:00-0400 Diastolic blood pressure 82 mm[Hg] Amber Galeano DO Work Phone: [facility]; [facility] Work Phone: Comment on above: Patient Position: Sitting; Cuff Location : Left Arm; Cuff Size: Standard 03-12-2014 09:00-0400 Heart rate 70 /min Amber Galeano DO Work Phone: [facility]; [facility] Work Phone: Comment on above: Pattern: Regular 03-12-2014 09:00-0400 Respiratory rate 17 /min Amber Galeano DO Work Phone: [facility]; [facility] Work Phone: 03-12-2014 09:00-0400 SaO2% (BldA) [Mass fraction] 98 % Amber Galeano DO Work Phone: [facility]; [facility] Work Phone: Comment on above: Room air 03-12-2014 09:00-0400 Systolic blood pressure 118 mm[Hg] Amber Gardneron DO Work Phone: [facility]; [facility] Work Phone: Comment on above: Patient Position: Sitting; Cuff Location : Left Arm; Cuff Size: Standard 03-10-2014 15:30-0400 Body height 182.88 cm Amber Galeano DO Work Phone: [facility]; [facility] Work Phone: 03-10-2014 15:30-0400 Body mass index (BMI) [Ratio] 29.78 kg/m2 Amber Galeano DO Work Phone: [facility]; [facility] Work Phone: 03-10-2014 15:30-0400 Body surface area Derived from formula 2.22 m2 Amber Galeano DO Work Phone: [facility]; [facility] Work Phone: 03-10-2014 15:30-0400 Body temperature 97.8 [degF] Amber Galeano DO Work Phone: [facility]; [facility] Work Phone: Comment on above: Method: Oral 03-10-2014 15:30-0400 Body weight 99.59 kg Amber Galeano DO Work Phone: [facility]; [facility] Work Phone: 03-10-2014 15:30-0400 Diastolic blood pressure 80 mm[Hg] Amber Galeano DO Work Phone: [facility]; [facility] Work Phone: Comment on above: Patient Position: Sitting; Cuff Location : Left Arm; Cuff Size: Standard 03-10-2014 15:30-0400 Heart rate 68 /min Amber Galeano DO Work Phone: [facility]; [facility] Work Phone: Comment on above: Pattern: Regular 03-10-2014 15:30-0400 SaO2% (BldA) [Mass fraction] 98 % Amber Galeano DO Work Phone: [facility]; [facility] Work Phone: Comment on above: Room air 03-10-2014 15:30-0400 Systolic blood pressure 144 mm[Hg] Amber Galeano DO Work Phone: [facility]; [facility] Work Phone: Comment on above: Patient Position: Sitting; Cuff Location : Left Arm; Cuff Size: Standard 03-03-2014 14:44-0400 Body height 182.88 cm Amber Galeano DO Work Phone: [facility]; [facility] Work Phone: 03-03-2014 14:44-0400 Body mass index (BMI) [Ratio] 29.78 kg/m2 Amber Galeano DO Work Phone: [facility]; [facility] Work Phone: 03-03-2014 14:44-0400 Body surface area Derived from formula 2.22 m2 Amber Galeano DO Work Phone: [facility]; [facility] Work Phone: 03-03-2014 14:44-0400 Body temperature 98.6 [degF] Amber Galeano DO Work Phone: [facility]; [facility] Work Phone: Comment on above: Method: Oral 03-03-2014 14:44-0400 Body weight 99.59 kg Amber Galeano DO Work Phone: [facility]; [facility] Work Phone: 03-03-2014 14:44-0400 Diastolic blood pressure 74 mm[Hg] Amber Galeano DO Work Phone: [facility]; [facility] Work Phone: Comment on above: Patient Position: Sitting; Cuff Location : Left Arm; Cuff Size: Standard 03-03-2014 14:44-0400 Heart rate 66 /min Amber Galeano DO Work Phone: [facility]; [facility] Work Phone: Comment on above: Pattern: Regular 03-03-2014 14:44-0400 Respiratory rate 16 /min Amber Galeano DO Work Phone: [facility]; [facility] Work Phone: 03-03-2014 14:44-0400 SaO2% (BldA) [Mass fraction] 98 % Amber Galeano DO Work Phone: [facility]; [facility] Work Phone: Comment on above: Room air 03-03-2014 14:44-0400 Systolic blood pressure 118 mm[Hg] Amber Galeano DO Work Phone: [facility]; [facility] Work Phone: Comment on above: Patient Position: Sitting; Cuff Location : Left Arm; Cuff Size: Standard 02-25-2014 15:12-0400 Body height 182.88 cm Matylee Renteria [facility]; [facility] Work Phone: 02-25-2014 15:12-0400 Body mass index (BMI) [Ratio] 29.78 kg/m2 Matylee Renteria [facility]; [facility] Work Phone: 02-25-2014 15:12-0400 Body surface area Derived from formula 2.22 m2 Maty Renteria [facility]; [facility] Work Phone: 02-25-2014 15:12-0400 Body temperature 97.7 [degF] Maty Renteria [facility]; [facility] Work Phone: Comment on above: Method: Oral 02-25-2014 15:120400 Body weight 99.59 kg Matylee Renteria [facility]; [facility] Work Phone: 02-25-2014 15:12-0400 Diastolic blood pressure 82 mm[Hg] Maty Renteria [facility]; [facility] Work Phone: Comment on above: Patient Position: Sitting; Cuff Location : Left Arm; Cuff Size: Standard 02-25-2014 15:12-0400 Heart rate 80 /min Matylee Richardsy [facility]; [facility] Work Phone: Comment on above: Pattern: Regular 02-25-2014 15:12-0400 Respiratory rate 18 /min Maty Renteria [facility]; [facility] Work Phone: Comment on above: Pattern: Unlabored 02-25-2014 15:12-0400 SaO2% (BldA) [Mass fraction] 97 % Maty Renteria [facility]; [facility] Work Phone: Comment on above: Room air 02-25-2014 15:12-0400 Systolic blood pressure 116 mm[Hg] Maty Renteria [facility]; [facility] Work Phone: Comment on above: Patient Position: Sitting; Cuff Location : Left Arm; Cuff Size: Standard 02-21-2014 08:30-0400 Body height 182.88 cm Amber Galeano DO Work Phone: [facility]; [facility] Work Phone: 02-21-2014 08:30-0400 Body mass index (BMI) [Ratio] 29.97 kg/m2 Amber Gardneron DO Work Phone: [facility]; [facility] Work Phone: 02-21-2014 08:30-0400 Body surface area Derived from formula 2.22 m2 Amber Galeano DO Work Phone: [facility]; [facility] Work Phone: 02-21-2014 08:30-0400 Body temperature 98 [degF] Amber Galeano DO Work Phone: [facility]; [facility] Work Phone: Comment on above: Method: Oral 02-21-2014 08:30-0400 Body weight 100.25 kg Amber Galeano DO Work Phone: [facility]; [facility] Work Phone: 02-21-2014 08:30-0400 Diastolic blood pressure 80 mm[Hg] Amber Galeano DO Work Phone: [facility]; [facility] Work Phone: Comment on above: Patient Position: Sitting; Cuff Location : Left Arm; Cuff Size: Standard 02-21-2014 08:30-0400 Heart rate 64 /min Amber Galeano DO Work Phone: [facility]; [facility] Work Phone: Comment on above: Pattern: Regular 02-21-2014 08:30-0400 Respiratory rate 16 /min Amber Galeano DO Work Phone: [facility]; [facility] Work Phone: 02-21-2014 08:30-0400 SaO2% (BldA) [Mass fraction] 98 % Amber Gardneron DO Work Phone: [facility]; [facility] Work Phone: Comment on above: Room air 02-21-2014 08:30-0400 Systolic blood pressure 136 mm[Hg] Amber Galeano DO Work Phone: [facility]; [facility] Work Phone: Comment on above: Patient Position: Sitting; Cuff Location : Left Arm; Cuff Size: Standard 02-10-2014 14:47-0400 Body height 182.88 cm Amber Gardneron DO Work Phone: [facility]; [facility] Work Phone: 02-10-2014 14:47-0400 Body mass index (BMI) [Ratio] 29.64 kg/m2 Amber Gardneron DO Work Phone: [facility]; [facility] Work Phone: 02-10-2014 14:47-0400 Body surface area Derived from formula 2.21 m2 Amber Gardneron DO Work Phone: [facility]; [facility] Work Phone: 02-10-2014 14:47-0400 Body temperature 98.6 [degF] Amber Gardneron DO Work Phone: [facility]; [facility] Work Phone: Comment on above: Method: Oral 02-10-2014 14:47-0400 Body weight 99.14 kg Amber Waleska DO Work Phone: [facility]; [facility] Work Phone: 02-10-2014 14:47-0400 Diastolic blood pressure 90 mm[Hg] Amber Gardneron DO Work Phone: [facility]; [facility] Work Phone: Comment on above: Patient Position: Sitting; Cuff Location : Left Arm; Cuff Size: Standard 02-10-2014 14:47-0400 Heart rate 74 /min Amber Gardneron DO Work Phone: [facility]; [facility] Work Phone: Comment on above: Pattern: Regular 02-10-2014 14:47-0400 Respiratory rate 16 /min Amber Galeano DO Work Phone: [facility]; [facility] Work Phone: 02-10-2014 14:47-0400 SaO2% (BldA) [Mass fraction] 96 % Amber Galeano DO Work Phone: [facility]; [facility] Work Phone: Comment on above: Room air 02-10-2014 14:47-0400 Systolic blood pressure 142 mm[Hg] Amber Galeano DO Work Phone: [facility]; [facility] Work Phone: Comment on above: Patient Position: Sitting; Cuff Location : Left Arm; Cuff Size: Standard 09-24-2013 15:12-0400 Body height 182.88 cm Maty Dexter [facility]; [facility] Work Phone: 09-24-2013 15:12-0400 Body mass index (BMI) [Ratio] 29.19 kg/m2 Maty Renteria [facility]; [facility] Work Phone: 09-24-2013 15:12-0400 Body surface area Derived from formula 2.2 m2 Maty Renteria [facility]; [facility] Work Phone: 09-24-2013 15:12-0400 Body weight 97.64 kg Maty Renteria [facility]; [facility] Work Phone: 09-24-2013 15:12-0400 Diastolic blood pressure 82 mm[Hg] Maty Renteria [facility]; [facility] Work Phone: Comment on above: Patient Position: Sitting; Cuff Location : Left Arm; Cuff Size: Standard 09-24-2013 15:12-0400 Heart rate 72 /min Maty Renteria [facility]; [facility] Work Phone: Comment on above: Pattern: Regular 09-24-2013 15:12-0400 Respiratory rate 18 /min Maty Renteria [facility]; [facility] Work Phone: Comment on above: Pattern: Unlabored 09-24-2013 15:12-0400 Systolic blood pressure 138 mm[Hg] Maty Renteria [facility]; [facility] Work Phone: Comment on above: Patient Position: Sitting; Cuff Location : Left Arm; Cuff Size: Standard 02-05-2013 14:210400 Body height 182.88 cm Amber Galeano DO Work Phone: [facility]; [facility] Work Phone: 02-05-2013 14:21-0400 Body mass index (BMI) [Ratio] 28.69 kg/m2 Amber Gardneron DO Work Phone: [facility]; [facility] Work Phone: 02-05-2013 14:21-0400 Body surface area Derived from formula 2.18 m2 Amber Gardneron DO Work Phone: [facility]; [facility] Work Phone: 02-05-2013 14:21-0400 Body temperature 98.9 [degF] Amber Gardneron DO Work Phone: [facility]; [facility] Work Phone: Comment on above: Method: Oral 02-05-2013 14:21-0400 Body weight 95.96 kg Amber Galeano DO Work Phone: [facility]; [facility] Work Phone: 02-05-2013 14:21-0400 Diastolic blood pressure 90 mm[Hg] Amber Galeano DO Work Phone: [facility]; [facility] Work Phone: Comment on above: Patient Position: Sitting; Cuff Location : Left Arm; Cuff Size: Standard 02-05-2013 14:21-0400 Heart rate 80 /min Amber Galeano DO Work Phone: [facility]; [facility] Work Phone: Comment on above: Pattern: Regular 02-05-2013 14:21-0400 Respiratory rate 17 /min Amber Galeano DO Work Phone: [facility]; [facility] Work Phone: 02-05-2013 14:21-0400 Systolic blood pressure 142 mm[Hg] Amber Galeano DO Work Phone: [facility]; [facility] Work Phone: Comment on above: Patient Position: Sitting; Cuff Location : Left Arm; Cuff Size: Standard 11-23-2012 13:28-0500 Body height 182.88 cm Amber Galeano DO Work Phone: [facility]; [facility] Work Phone: 11-23-2012 13:28-0500 Body mass index (BMI) [Ratio] 28.69 kg/m2 Amber Galeano DO Work Phone: [facility]; [facility] Work Phone: 11-23-2012 13:28-0500 Body surface area Derived from formula 2.18 m2 Amber Galeano DO Work Phone: [facility]; [facility] Work Phone: 11-23-2012 13:28-0500 Body temperature 98.7 [degF] Amber Galeano DO Work Phone: [facility]; [facility] Work Phone: Comment on above: Method: Oral 12-28-2012 13:28-0500 Body weight 95.96 kg Amber Galeano DO Work Phone: [facility]; [facility] Work Phone: 11-23-2012 13:28-0500 Diastolic blood pressure 78 mm[Hg] Amber Gaelano DO Work Phone: [facility]; [facility] Work Phone: Comment on above: Patient Position: Sitting; Cuff Location : Left Arm; Cuff Size: Standard 11-23-2012 13:28-0500 Heart rate 74 /min Amber Galeano DO Work Phone: [facility]; [facility] Work Phone: Comment on above: Pattern: Regular 11-23-2012 13:28-0500 Respiratory rate 16 /min Amber Galeano DO Work Phone: [facility]; [facility] Work Phone: 11-23-2012 13:28-0500 SaO2% (BldA) [Mass fraction] 98 % Amber Galeano DO Work Phone: [facility]; [facility] Work Phone: Comment on above: Room air 11-23-2012 13:28-0500 Systolic blood pressure 120 mm[Hg] Amber Galeano DO Work Phone: [facility]; [facility] Work Phone: Comment on above: Patient Position: Sitting; Cuff Location : Left Arm; Cuff Size: Standard 11-05-2012 15:36-0500 Body height 182.88 cm Amber Gardneron DO Work Phone: [facility]; [facility] Work Phone: 11-05-2012 15:36-0500 Body mass index (BMI) [Ratio] 28.69 kg/m2 Amber Gardneron DO Work Phone: [facility]; [facility] Work Phone: 11-05-2012 15:36-0500 Body surface area Derived from formula 2.18 m2 Amber Galeano DO Work Phone: [facility]; [facility] Work Phone: 11-05-2012 15:36-0500 Body temperature 98 [degF] Amber Galeano DO Work Phone: [facility]; [facility] Work Phone: Comment on above: Method: Oral 11-05-2012 15:36-0500 Body weight 95.96 kg Amber Galeano DO Work Phone: [facility]; [facility] Work Phone: 11-05-2012 15:36-0500 Diastolic blood pressure 80 mm[Hg] Amber Galeano DO Work Phone: [facility]; [facility] Work Phone: Comment on above: Patient Position: Sitting; Cuff Location : Left Arm; Cuff Size: Standard 11-05-2012 15:36-0500 Heart rate 82 /min Amber Galeano DO Work Phone: [facility]; [facility] Work Phone: Comment on above: Pattern: Regular 11-05-2012 15:36-0500 Respiratory rate 16 /min Amber Galeano DO Work Phone: [facility]; [facility] Work Phone: 11-05-2012 15:36-0500 SaO2% (BldA) [Mass fraction] 98 % Amber Galeano DO Work Phone: [facility]; [facility] Work Phone: Comment on above: Room air 11-05-2012 15:36-0500 Systolic blood pressure 138 mm[Hg] Amber Galeano DO Work Phone: [facility]; [facility] Work Phone: Comment on above: Patient Position: Sitting; Cuff Location : Left Arm; Cuff Size: Standard 12-09-2011 08:04-0500 Body height 182.88 cm Amber Waleska DO Work Phone: [facility]; [facility] Work Phone: 12-09-2011 08:04-0500 Body mass index (BMI) [Ratio] 28.69 kg/m2 Amber Waleska DO Work Phone: [facility]; [facility] Work Phone: 12-09-2011 08:04-0500 Body surface area Derived from formula 2.18 m2 Amber Galeano DO Work Phone: [facility]; [facility] Work Phone: 12-09-2011 08:04-0500 Body temperature 97.8 [degF] Amber Galeano DO Work Phone: [facility]; [facility] Work Phone: Comment on above: Method: Oral 12-09-2011 08:04-0500 Body weight 95.96 kg Amber Galeano DO Work Phone: [facility]; [facility] Work Phone: 12-09-2011 08:04-0500 Diastolic blood pressure 80 mm[Hg] Amber Galeano DO Work Phone: [facility]; [facility] Work Phone: Comment on above: Patient Position: Sitting; Cuff Location : Left Arm; Cuff Size: Standard 12-09-2011 08:04-0500 Heart rate 76 /min Amber Galeano DO Work Phone: [facility]; [facility] Work Phone: Comment on above: Pattern: Regular 12-09-2011 08:04-0500 Respiratory rate 18 /min Amber Galeano DO Work Phone: [facility]; [facility] Work Phone: Comment on above: Pattern: Unlabored 12-09-2011 08:04-0500 SaO2% (BldA) [Mass fraction] 96 % Amber Galeano DO Work Phone: [facility]; [facility] Work Phone: Comment on above: Room air 12-09-2011 08:04-0500 Systolic blood pressure 122 mm[Hg] Amber Galeano DO Work Phone: [facility]; [facility] Work Phone: Comment on above: Patient Position: Sitting; Cuff Location : Left Arm; Cuff Size: Standard 12-01-2011 13:22-0500 Body height 182.88 cm Blanca Gar RN [facility]; [facility] Work Phone: 12-01-2011 13:22-0500 Body mass index (BMI) [Ratio] 28.69 kg/m2 Blanca Gar RN [facility]; [facility] Work Phone: 12-01-2011 13:22-0500 Body surface area Derived from formula 2.18 m2 Blanca Gar RN [facility]; [facility] Work Phone: 12-01-2011 13:22-0500 Body temperature 98.2 [degF] Blanca Gar RN [facility]; [facility] Work Phone: 12-01-2011 13:22-0500 Body weight 95.96 kg Blanca Gar RN [facility]; [facility] Work Phone: 12-01-2011 13:22-0500 Diastolic blood pressure 82 mm[Hg] Blanca Gar RN [facility]; [facility] Work Phone: Comment on above: Patient Position: Sitting; Cuff Location : Left Arm; Cuff Size: Large 12-01-2011 13:22-0500 Heart rate 60 /min Blanca Gar RN [facility]; [facility] Work Phone: Comment on above: Pattern: Regular 12-01-2011 13:22-0500 Respiratory rate 18 /min Blanca Gar RN [facility]; [facility] Work Phone: Comment on above: Pattern: Unlabored 12-01-2011 13:22-0500 Systolic blood pressure 138 mm[Hg] Blanca Gar RN [facility]; [facility] Work Phone: Comment on above: Patient Position: Sitting; Cuff Location : Left Arm; Cuff Size: Large 10-12-2011 11:35-0500 Body height 182.88 cm Amber Waleska DO Work Phone: [facility]; [facility] Work Phone: 10-12-2011 11:35-0500 Body mass index (BMI) [Ratio] 27.97 kg/m2 Amber Waleska DO Work Phone: [facility]; [facility] Work Phone: 10-12-2011 11:35-0500 Body surface area Derived from formula 2.16 m2 Amber Waleska DO Work Phone: [facility]; [facility] Work Phone: 10-12-2011 11:35-0500 Body temperature 97.3 [degF] Amber Gardneron DO Work Phone: [facility]; [facility] Work Phone: Comment on above: Method: Oral 10-12-2011 11:35-0500 Body weight 93.56 kg Amber Waleska DO Work Phone: [facility]; [facility] Work Phone: 10-12-2011 11:35-0500 Diastolic blood pressure 76 mm[Hg] Amber Waleska DO Work Phone: [facility]; [facility] Work Phone: Comment on above: Patient Position: Sitting; Cuff Location : Left Arm; Cuff Size: Standard 10-12-2011 11:35-0500 Heart rate 68 /min Amber Waleska DO Work Phone: [facility]; [facility] Work Phone: Comment on above: Pattern: Regular 10-12-2011 11:35-0500 Respiratory rate 16 /min Amber Waleska DO Work Phone: [facility]; [facility] Work Phone: 10-12-2011 11:35-0500 Systolic blood pressure 120 mm[Hg] Amber Waleska DO Work Phone: [facility]; [facility] Work Phone: Comment on above: Patient Position: Sitting; Cuff Location : Left Arm; Cuff Size: Standard 08-12-2011 07:58-0400 Body height 182.88 cm Blanca Gar RN [facility]; [facility] Work Phone: 08-12-2011 07:58-0400 Body mass index (BMI) [Ratio] 27.97 kg/m2 Blanca Gar RN [facility]; [facility] Work Phone: 08-12-2011 07:58-0400 Body surface area Derived from formula 2.16 m2 Blanca Gar RN [facility]; [facility] Work Phone: 08-12-2011 07:58-0400 Body temperature 96.9 [degF] Blanca Gar RN [facility]; [facility] Work Phone: Comment on above: Method: Oral 08-12-2011 07:58-0400 Body weight 93.56 kg Blanca Gar RN [facility]; [facility] Work Phone: 08-12-2011 07:58-0400 Diastolic blood pressure 84 mm[Hg] Blanca Gar RN [facility]; [facility] Work Phone: Comment on above: Patient Position: Sitting; Cuff Location : Left Arm; Cuff Size: Large 08-12-2011 07:58-0400 Heart rate 64 /min Blanca Gar RN [facility]; [facility] Work Phone: Comment on above: Pattern: Regular 08-12-2011 07:58-0400 Respiratory rate 16 /min Blanca Gar RN [facility]; [facility] Work Phone: Comment on above: Pattern: Unlabored 08-12-2011 07:58-0400 Systolic blood pressure 122 mm[Hg] Blanca Gar RN [facility]; [facility] Work Phone: Comment on above: Patient Position: Sitting; Cuff Location : Left Arm; Cuff Size: Large 07-29-2011 08:16-0400 Body height 182.88 cm Amber Waleska MARCOS Work Phone: [facility]; [facility] Work Phone: 07-29-2011 08:16-0400 Body mass index (BMI) [Ratio] 28.93 kg/m2 Amber Waleska DO Work Phone: [facility]; [facility] Work Phone: 07-29-2011 08:16-0400 Body surface area Derived from formula 2.19 m2 Amber Gardneron DO Work Phone: [facility]; [facility] Work Phone: 07-29-2011 08:16-0400 Body temperature 96.9 [degF] Amber Gardneron DO Work Phone: [facility]; [facility] Work Phone: Comment on above: Method: Oral 07-29-2011 08:16-0400 Body weight 96.76 kg Amber Galeano DO Work Phone: [facility]; [facility] Work Phone: 07-29-2011 08:16-0400 Diastolic blood pressure 86 mm[Hg] Amber Waleska DO Work Phone: [facility]; [facility] Work Phone: Comment on above: Patient Position: Sitting; Cuff Location : Left Arm; Cuff Size: Standard 07-29-2011 08:16-0400 Heart rate 66 /min Amber Waleska DO Work Phone: [facility]; [facility] Work Phone: Comment on above: Pattern: Regular 07-29-2011 08:16-0400 Respiratory rate 15 /min Amber Gardneron DO Work Phone: [facility]; [facility] Work Phone: 07-29-2011 08:16-0400 Systolic blood pressure 142 mm[Hg] Amber Waleska DO Work Phone: [facility]; [facility] Work Phone: Comment on above: Patient Position: Sitting; Cuff Location : Left Arm; Cuff Size: Standard 03-11-2011 09:44-0400 Body height 182.88 cm Abmer Galeano DO Work Phone: [facility]; [facility] Work Phone: 03-11-2011 09:44-0400 Body mass index (BMI) [Ratio] 28.93 kg/m2 Amber Gardneron DO Work Phone: [facility]; [facility] Work Phone: 03-11-2011 09:44-0400 Body surface area Derived from formula 2.19 m2 Amber Galeano DO Work Phone: [facility]; [facility] Work Phone: 03-11-2011 09:44-0400 Body temperature 97 [degF] Amber Galeano DO Work Phone: [facility]; [facility] Work Phone: Comment on above: Method: Oral 03-11-2011 09:44-0400 Body weight 96.76 kg Amber Galeano DO Work Phone: [facility]; [facility] Work Phone: 03-11-2011 09:44-0400 Diastolic blood pressure 74 mm[Hg] Amber Gadrneron DO Work Phone: [facility]; [facility] Work Phone: Comment on above: Patient Position: Sitting; Cuff Location : Left Arm; Cuff Size: Standard 03-11-2011 09:44-0400 Heart rate 76 /min Amber Galeano DO Work Phone: [facility]; [facility] Work Phone: Comment on above: Pattern: Regular 03-11-2011 09:44-0400 Respiratory rate 16 /min Amber Gardneron DO Work Phone: [facility]; [facility] Work Phone: Comment on above: Pattern: Unlabored 03-11-2011 09:44-0400 Systolic blood pressure 122 mm[Hg] Amber Waleska DO Work Phone: [facility]; [facility] Work Phone: Comment on above: Patient Position: Sitting; Cuff Location : Left Arm; Cuff Size: Standard 01-28-2011 10:19-0500 Body height 182.88 cm Amber Galeano DO Work Phone: [facility]; [facility] Work Phone: 01-28-2011 10:19-0500 Body mass index (BMI) [Ratio] 28.93 kg/m2 Amber Waleska DO Work Phone: [facility]; [facility] Work Phone: 01-28-2011 10:19-0500 Body surface area Derived from formula 2.19 m2 Amber Galeano DO Work Phone: [facility]; [facility] Work Phone: 01-28-2011 10:19-0500 Body temperature 97 [degF] Amber Gaelano DO Work Phone: [facility]; [facility] Work Phone: Comment on above: Method: Oral 01-28-2011 10:19-0500 Body weight 96.76 kg Amber Galeano DO Work Phone: [facility]; [facility] Work Phone: 01-28-2011 10:19-0500 Diastolic blood pressure 84 mm[Hg] Amber Galeano DO Work Phone: [facility]; [facility] Work Phone: Comment on above: Patient Position: Sitting; Cuff Location : Left Arm; Cuff Size: Standard 01-28-2011 10:19-0500 Heart rate 70 /min Amber Galeano DO Work Phone: [facility]; [facility] Work Phone: Comment on above: Pattern: Regular 01-28-2011 10:19-0500 Respiratory rate 16 /min Amber Galeano DO Work Phone: [facility]; [facility] Work Phone: Comment on above: Pattern: Unlabored 01-28-2011 10:19-0500 Systolic blood pressure 138 mm[Hg] Amber Galeano DO Work Phone: [facility]; [facility] Work Phone: Comment on above: Patient Position: Sitting; Cuff Location : Left Arm; Cuff Size: Standard 01-14-2011 12:00-0500 Body height 182.88 cm Amber Galeano DO Work Phone: [facility]; [facility] Work Phone: 01-14-2011 12:00-0500 Body mass index (BMI) [Ratio] 28.68 kg/m2 Amber Gardneron DO Work Phone: [facility]; [facility] Work Phone: 01-14-2011 12:00-0500 Body surface area Derived from formula 2.18 m2 Amber Galeano DO Work Phone: [facility]; [facility] Work Phone: 01-14-2011 12:00-0500 Body temperature 97.1 [degF] Amber Galeano DO Work Phone: [facility]; [facility] Work Phone: Comment on above: Method: Oral 01-14-2011 12:00-0500 Body weight 95.91 kg Amber Galeano DO Work Phone: [facility]; [facility] Work Phone: 01-14-2011 12:00-0500 Diastolic blood pressure 92 mm[Hg] Amber Galeano DO Work Phone: [facility]; [facility] Work Phone: Comment on above: Patient Position: Sitting; Cuff Location : Left Arm; Cuff Size: Standard 01-14-2011 12:00-0500 Respiratory rate 17 /min Amber Galeano DO Work Phone: [facility]; [facility] Work Phone: Comment on above: Pattern: Unlabored 01-14-2011 12:00-0500 Systolic blood pressure 172 mm[Hg] Amber Galeano DO Work Phone: [facility]; [facility] Work Phone: Comment on above: Patient Position: Sitting; Cuff Location : Left Arm; Cuff Size: Standard 10-04-2010 14:46-0500 Body height 182.88 cm Blanca Gar RN [facility]; [facility] Work Phone: 10-04-2010 14:46-0500 Body mass index (BMI) [Ratio] 28.68 kg/m2 Blanca Gar RN [facility]; [facility] Work Phone: 10-04-2010 14:46-0500 Body surface area Derived from formula 2.18 m2 Blanca Gar RN [facility]; [facility] Work Phone: 10-04-2010 14:46-0500 Body weight 95.91 kg Blanca Gar RN [facility]; [facility] Work Phone: 10-04-2010 14:46-0500 Diastolic blood pressure 71 mm[Hg] Blanca Gar RN [facility]; [facility] Work Phone: Comment on above: Patient Position: Sitting; Cuff Location : Left Arm; Cuff Size: Standard 10-04-2010 14:46-0500 Heart rate 76 /min Blanca Gar RN [facility]; [facility] Work Phone: Comment on above: Pattern: Regular 10-04-2010 14:46-0500 Respiratory rate 18 /min Blanca Gar RN [facility]; [facility] Work Phone: Comment on above: Pattern: Unlabored 10-04-2010 14:46-0500 Systolic blood pressure 132 mm[Hg] Blanca Gar RN [facility]; [facility] Work Phone: Comment on above: Patient Position: Sitting; Cuff Location : Left Arm; Cuff Size: Standard 09-27-2010 15:42-0400 Body height 182.88 cm Blanca Gar RN [facility]; [facility] Work Phone: 09-27-2010 15:42-0400 Body mass index (BMI) [Ratio] 28.63 kg/m2 Blanca Gar RN [facility]; [facility] Work Phone: 09-27-2010 15:42-0400 Body surface area Derived from formula 2.18 m2 Blanca Gar RN [facility]; [facility] Work Phone: 09-27-2010 15:42-0400 Body weight 95.77 kg Blanca Gar RN [facility]; [facility] Work Phone: 09-27-2010 15:42-0400 Diastolic blood pressure 84 mm[Hg] Blanca Gar RN [facility]; [facility] Work Phone: Comment on above: Patient Position: Sitting; Cuff Location : Left Arm; Cuff Size: Large 09-27-2010 15:42-0400 Heart rate 64 /min Blanca Gar RN [facility]; [facility] Work Phone: Comment on above: Pattern: Regular 09-27-2010 15:42-0400 Respiratory rate 20 /min Blanca Gar RN [facility]; [facility] Work Phone: Comment on above: Pattern: Unlabored 09-27-2010 15:42-0400 Systolic blood pressure 122 mm[Hg] Blanca Gar RN [facility]; [facility] Work Phone: Comment on above: Patient Position: Sitting; Cuff Location : Left Arm; Cuff Size: Large 09-06-2010 15:51-0400 Body height 182.88 cm Blanca Gar RN [facility]; [facility] Work Phone: 09-06-2010 15:51-0400 Body mass index (BMI) [Ratio] 29.29 kg/m2 Blanca Gar RN [facility]; [facility] Work Phone: 09-06-2010 15:51-0400 Body surface area Derived from formula 2.2 m2 Blanca Gar RN [facility]; [facility] Work Phone: 09-06-2010 15:51-0400 Body weight 97.98 kg Blanca Gar RN [facility]; [facility] Work Phone: 09-06-2010 15:51-0400 Diastolic blood pressure 88 mm[Hg] Blanca Messenger RN [facility]; [facility] Work Phone: Comment on above: Patient Position: Sitting; Cuff Location : Left Arm; Cuff Size: Large 09-06-2010 15:51-0400 Heart rate 72 /min Blanca Gar RN [facility]; [facility] Work Phone: Comment on above: Pattern: Regular 09-06-2010 15:51-0400 Respiratory rate 20 /min Blanca Gar RN [facility]; [facility] Work Phone: Comment on above: Pattern: Unlabored 09-06-2010 15:51-0400 Systolic blood pressure 138 mm[Hg] Blanca Gar RN [facility]; [facility] Work Phone: Comment on above: Patient Position: Sitting; Cuff Location : Left Arm; Cuff Size: Large 08-26-2010 07:49-0400 Body temperature 97.6 [degF] MERON Yeager LPN [facility]; [facility] Work Phone: Comment on above: Method: Oral 08-26-2010 07:49-0400 Body weight 95.26 kg MERON Yeager LPN [facility]; [facility] Work Phone: 08-26-2010 07:49-0400 Diastolic blood pressure 88 mm[Hg] MERON Yeager LPN [facility]; [facility] Work Phone: Comment on above: Patient Position: Sitting; Cuff Location : Left Arm; Cuff Size: Standard 08-26-2010 07:49-0400 Heart rate 70 /min MERON Yeager LPN [facility]; [facility] Work Phone: Comment on above: Pattern: Regular 08-26-2010 07:49-0400 Respiratory rate 18 /min MERON Yegaer LPN [facility]; [facility] Work Phone: Comment on above: Pattern: Unlabored 08-26-2010 07:49-0400 Systolic blood pressure 142 mm[Hg] MERON Yeager LPN [facility]; [facility] Work Phone: Comment on above: Patient Position: Sitting; Cuff Location : Left Arm; Cuff Size: Standard 10-20-2009 13:32-0500 Body height 182.88 cm Blanca Gar RN [facility]; [facility] Work Phone: 10-20-2009 13:32-0500 Body mass index (BMI) [Ratio] 29.57 kg/m2 Blanca Gar RN [facility]; [facility] Work Phone: 10-20-2009 13:32-0500 Body surface area Derived from formula 2.21 m2 Blanca Gar RN [facility]; [facility] Work Phone: 10-20-2009 13:32-0500 Body weight 98.88 kg Blanca Gar RN [facility]; [facility] Work Phone: 10-20-2009 13:32-0500 Diastolic blood pressure 72 mm[Hg] Blanca Gar RN [facility]; [facility] Work Phone: Comment on above: Patient Position: Sitting; Cuff Location : Left Arm; Cuff Size: Large 10-20-2009 13:32-0500 Head Occipital-frontal circumference 0 cm Blanca Gar RN [facility]; [facility] Work Phone: 10-20-2009 13:32-0500 Heart rate 76 /min Blanca Gar RN [facility]; [facility] Work Phone: Comment on above: Pattern: Regular 10-20-2009 13:32-0500 Respiratory rate 20 /min Blanca Gar RN [facility]; [facility] Work Phone: Comment on above: Pattern: Unlabored 10-20-2009 13:32-0500 Systolic blood pressure 128 mm[Hg] Blanca Gar RN [facility]; [facility] Work Phone: Comment on above: Patient Position: Sitting; Cuff Location : Left Arm; Cuff Size: Large 05-26-2009 11:23-0400 Body height 0 cm MERON Yeager LPN [facility]; [facility] Work Phone: 05-26-2009 11:23-0400 Body weight 98.88 kg MERON Yeager LPN [facility]; [facility] Work Phone: 05-26-2009 11:23-0400 Diastolic blood pressure 90 mm[Hg] MERON Yeager LPN [facility]; [facility] Work Phone: Comment on above: Patient Position: Sitting; Cuff Location : Left Arm; Cuff Size: Standard 05-26-2009 11:23-0400 Head Occipital-frontal circumference 0 cm MERON Yeager LPN [facility]; [facility] Work Phone: 05-26-2009 11:23-0400 Heart rate 64 /min MERON Yeager LPN [facility]; [facility] Work Phone: Comment on above: Pattern: Regular 05-26-2009 11:23-0400 Respiratory rate 16 /min MERON Yeager LPN [facility]; [facility] Work Phone: Comment on above: Pattern: Unlabored 05-26-2009 11:23-0400 Systolic blood pressure 160 mm[Hg] MERON Yeager LPN [facility]; [facility] Work Phone: Comment on above: Patient Position: Sitting; Cuff Location : Left Arm; Cuff Size: Standard 05-15-2009 10:37-0400 Body height 182.88 cm Danna Ramirez [facility]; [facility] Work Phone: 05-15-2009 10:37-0400 Body mass index (BMI) [Ratio] 29.61 kg/m2 Danna Ramirez [facility]; [facility] Work Phone: 05-15-2009 10:37-0400 Body surface area Derived from formula 2.21 m2 Dannamu Ramirez [facility]; [facility] Work Phone: 05-15-2009 10:37-0400 Body weight 99.03 kg Danna Ramirez [facility]; [facility] Work Phone: 05-15-2009 10:37-0400 Diastolic blood pressure 72 mm[Hg] Danna [facility]; [facility] Work Phone: Comment on above: Patient Position: Supine; Cuff Location: Left Arm; Cuff Size: Standard 05-15-2009 10:37-0400 Head Occipital-frontal circumference 0 cm Dannamu Ramirez [facility]; [facility] Work Phone: 05-15-2009 10:37-0400 Heart rate 60 /min Danna Ramirez [facility]; [facility] Work Phone: Comment on above: Pattern: Regular 05-15-2009 10:37-0400 Respiratory rate 16 /min Danna Ramirez [facility]; [facility] Work Phone: Comment on above: Pattern: Unlabored 05-15-2009 10:37-0400 Systolic blood pressure 124 mm[Hg] Danna Ramirez [facility]; [facility] Work Phone: Comment on above: Patient Position: Supine; Cuff Location: Left Arm; Cuff Size: Standard 05-07-2009 15:28-0400 Body height 182.88 cm Danna Ramirez [facility]; [facility] Work Phone: 05-07-2009 15:28-0400 Body mass index (BMI) [Ratio] 29.61 kg/m2 Danna Ramirez [facility]; [facility] Work Phone: 05-07-2009 15:28-0400 Body surface area Derived from formula 2.21 m2 Danna Ramirez [facility]; [facility] Work Phone: 05-07-2009 15:28-0400 Body temperature 98.2 [degF] Danna Ramirez [facility]; [facility] Work Phone: Comment on above: Method: Oral 05-07-2009 15:28-0400 Body weight 99.03 kg Danna Ramirez [facility]; [facility] Work Phone: 05-07-2009 15:28-0400 Diastolic blood pressure 78 mm[Hg] Danna Ramirez [facility]; [facility] Work Phone: Comment on above: Patient Position: Supine; Cuff Location: Left Arm; Cuff Size: Standard 05-07-2009 15:28-0400 Head Occipital-frontal circumference 0 cm Danna Ramirez [facility]; [facility] Work Phone: 05-07-2009 15:28-0400 Heart rate 60 /min Danna Ramirez [facility]; [facility] Work Phone: Comment on above: Pattern: Regular 05-07-2009 15:28-0400 Respiratory rate 16 /min Danna Ramirez [facility]; [facility] Work Phone: Comment on above: Pattern: Unlabored 05-07-2009 15:28-0400 Systolic blood pressure 118 mm[Hg] Danna Ramirez [facility]; [facility] Work Phone: Comment on above: Patient Position: Supine; Cuff Location: Left Arm; Cuff Size: Standard 04-16-2009 16:07-0400 Body height 182.88 cm Blanca Gar RN [facility]; [facility] Work Phone: 04-16-2009 16:07-0400 Body mass index (BMI) [Ratio] 29.61 kg/m2 Blanca Gar RN [facility]; [facility] Work Phone: 04-16-2009 16:07-0400 Body surface area Derived from formula 2.21 m2 Blanca Gar RN [facility]; [facility] Work Phone: 04-16-2009 16:07-0400 Body weight 99.03 kg Blanca Gar RN [facility]; [facility] Work Phone: 04-16-2009 16:07-0400 Diastolic blood pressure 86 mm[Hg] Blanca Gar RN [facility]; [facility] Work Phone: Comment on above: Patient Position: Supine; Cuff Location: Left Arm; Cuff Size: Large 04-16-2009 16:07-0400 Head Occipital-frontal circumference 0 cm Blanca Gar RN [facility]; [facility] Work Phone: 04-16-2009 16:07-0400 Heart rate 80 /min Blanca Gar RN [facility]; [facility] Work Phone: Comment on above: Pattern: Regular 04-16-2009 16:07-0400 Respiratory rate 16 /min Blanca Gar RN [facility]; [facility] Work Phone: Comment on above: Pattern: Unlabored 04-16-2009 16:07-0400 Systolic blood pressure 140 mm[Hg] Blanca Gar RN [facility]; [facility] Work Phone: Comment on above: Patient Position: Supine; Cuff Location: Left Arm; Cuff Size: Large 02-16-2009 13:-0400 Body height 0 cm Blanca Gar RN [facility]; [facility] Work Phone: 02-16-2009 13:01-0400 Body weight 102.06 kg Blanca Gar RN [facility]; [facility] Work Phone: 02-16-2009 13:01-0400 Diastolic blood pressure 80 mm[Hg] Blanca Gar RN [facility]; [facility] Work Phone: Comment on above: Patient Position: Sitting; Cuff Location : Left Arm; Cuff Size: Large 02-16-2009 13:-0400 Head Occipital-frontal circumference 0 cm Blanca Gar RN [facility]; [facility] Work Phone: 02-16-2009 13:01-0400 Heart rate 80 /min Blanca Gar RN [facility]; [facility] Work Phone: Comment on above: Pattern: Regular 02-16-2009 13:01-0400 Respiratory rate 20 /min Blanca Gar RN [facility]; [facility] Work Phone: Comment on above: Pattern: Unlabored 02-16-2009 13:01-0400 Systolic blood pressure 118 mm[Hg] Blanca Gar RN [facility]; [facility] Work Phone: Comment on above: Patient Position: Sitting; Cuff Location : Left Arm; Cuff Size: Large 01-19-2009 12:51-0500 Body height 177.8 cm Blanca Gar RN [facility]; [facility] Work Phone: 01-19-2009 12:51-0500 Body mass index (BMI) [Ratio] 31.77 kg/m2 Blanca Gar RN [facility]; [facility] Work Phone: 01-19-2009 12:51-0500 Body surface area Derived from formula 2.18 m2 Blanca Gar RN [facility]; [facility] Work Phone: 01-19-2009 12:51-0500 Body weight 100.44 kg Blanca Gar RN [facility]; [facility] Work Phone: 01-19-2009 12:51-0500 Diastolic blood pressure 84 mm[Hg] Blanca Gar RN [facility]; [facility] Work Phone: Comment on above: Patient Position: Sitting; Cuff Location : Left Arm; Cuff Size: Large 01-19-2009 12:51-0500 Head Occipital-frontal circumference 0 cm Blanca Gar RN [facility]; [facility] Work Phone: 01-19-2009 12:51-0500 Heart rate 60 /min Blanca Gar RN [facility]; [facility] Work Phone: Comment on above: Pattern: Regular 01-19-2009 12:51-0500 Respiratory rate 20 /min Blanca Gar RN [facility]; [facility] Work Phone: Comment on above: Pattern: Unlabored 01-19-2009 12:51-0500 Systolic blood pressure 138 mm[Hg] Blanca Gar RN [facility]; [facility] Work Phone: Comment on above: Patient Position: Sitting; Cuff Location : Left Arm; Cuff Size: Large 12-29-2008 13:04-0500 Body height 177.8 cm Blanca Gar RN [facility]; [facility] Work Phone: Comment on above: his machine got 145/93 12-29-2008 13:04-0500 Body mass index (BMI) [Ratio] 31.77 kg/m2 Blanca Gar RN [facility]; [facility] Work Phone: Comment on above: his machine got 145/93 12-29-2008 13:04-0500 Body surface area Derived from formula 2.18 m2 Blanca Gar RN [facility]; [facility] Work Phone: Comment on above: his machine got 145/93 12-29-2008 13:04-0500 Body weight 100.44 kg Blanca Gar RN [facility]; [facility] Work Phone: Comment on above: his machine got 145/93 12-29-2008 13:04-0500 Diastolic blood pressure 84 mm[Hg] Blanca Gar RN [facility]; [facility] Work Phone: Comment on above: Patient Position: Sitting; Cuff Location : Left Arm; Cuff Size: Large his machine got 145/ 93 12-29-2008 13:04-0500 Head Occipital-frontal circumference 0 cm Blanca Gar RN [facility]; [facility] Work Phone: Comment on above: his machine got 145/93 12-29-2008 13:04-0500 Heart rate 64 /min Blanca Gar RN [facility]; [facility] Work Phone: Comment on above: Pattern: Regular his machine got 145/ 93 12-29-2008 13:04-0500 Respiratory rate 20 /min Blanca Gar RN [facility]; [facility] Work Phone: Comment on above: Pattern: Unlabored his machine got 145/ 93 12-29-2008 13:04-0500 Systolic blood pressure 138 mm[Hg] Blanca Gar RN [facility]; [facility] Work Phone: Comment on above: Patient Position: Sitting; Cuff Location : Left Arm; Cuff Size: Large his machine got 145/ 93 10-27-2008 08:04-0500 Body height 180.34 cm Blanca Gar RN [facility]; [facility] Work Phone: 10-27-2008 08:04-0500 Body mass index (BMI) [Ratio] 30.73 kg/m2 Blanca Gar RN [facility]; [facility] Work Phone: 10-27-2008 08:04-0500 Body surface area Derived from formula 2.2 m2 Blanca Gar RN [facility]; [facility] Work Phone: 10-27-2008 08:04-0500 Body weight 99.93 kg Blanca Gar RN [facility]; [facility] Work Phone: 10-27-2008 08:04-0500 Diastolic blood pressure 92 mm[Hg] Blanca Gar RN [facility]; [facility] Work Phone: Comment on above: Patient Position: Sitting; Cuff Location : Left Arm; Cuff Size: Small 10-27-2008 08:04-0500 Head Occipital-frontal circumference 0 cm Blanca Gar RN [facility]; [facility] Work Phone: 10-27-2008 08:04-0500 Heart rate 80 /min Blanca Gar RN [facility]; [facility] Work Phone: Comment on above: Pattern: Regular 10-27-2008 08:04-0500 Respiratory rate 20 /min Blanca Gar RN [facility]; [facility] Work Phone: Comment on above: Pattern: Unlabored 10-27-2008 08:04-0500 Systolic blood pressure 172 mm[Hg] Blanca Gar RN [facility]; [facility] Work Phone: Comment on above: Patient Position: Sitting; Cuff Location : Left Arm; Cuff Size: Small 08-05-2008 09:42-0400 Body height 180.34 cm Blanca Gar RN [facility]; [facility] Work Phone: 08-05-2008 09:42-0400 Body mass index (BMI) [Ratio] 29.73 kg/m2 Blanca Gar RN [facility]; [facility] Work Phone: 08-05-2008 09:42-0400 Body surface area Derived from formula 2.17 m2 Blanca Gar RN [facility]; [facility] Work Phone: 08-05-2008 09:42-0400 Body weight 96.7 kg Blanca Gar RN [facility]; [facility] Work Phone: 08-05-2008 09:42-0400 Diastolic blood pressure 80 mm[Hg] Blanca Gar RN [facility]; [facility] Work Phone: Comment on above: Patient Position: Sitting; Cuff Location : Left Arm; Cuff Size: Large 08-05-2008 09:42-0400 Head Occipital-frontal circumference 0 cm Blanca Gar RN [facility]; [facility] Work Phone: 08-05-2008 09:42-0400 Heart rate 60 /min Blanca Gar RN [facility]; [facility] Work Phone: Comment on above: Pattern: Regular 08-05-2008 09:42-0400 Respiratory rate 20 /min Blanca Gar RN [facility]; [facility] Work Phone: Comment on above: Pattern: Unlabored 08-05-2008 09:42-0400 Systolic blood pressure 128 mm[Hg] Blanca Gar RN [facility]; [facility] Work Phone: Comment on above: Patient Position: Sitting; Cuff Location : Left Arm; Cuff Size: Large 04-28-2008 16:22-0400 Body height 180.34 cm Blanca Gar RN [facility]; [facility] Work Phone: 04-28-2008 16:22-0400 Body mass index (BMI) [Ratio] 29.45 kg/m2 Blanca Gar RN [facility]; [facility] Work Phone: 04-28-2008 16:22-0400 Body surface area Derived from formula 2.16 m2 Blanca Gar RN [facility]; [facility] Work Phone: 04-28-2008 16:22-0400 Body weight 95.77 kg Blanca Gar RN [facility] Work Phone: 04-28-2008 16:22-0400 Diastolic blood pressure 78 mm[Hg] Blanca Gar RN [facility]; [facility] Work Phone: Comment on above: Patient Position: Sitting; Cuff Location : Right Arm; Cuff Size: Standard 04-28-2008 16:22-0400 Head Occipital-frontal circumference 0 cm Balnca Gar RN [facility]; [facility] Work Phone: 04-28-2008 16:22-0400 Heart rate 80 /min Blanca Gar RN [facility]; [facility] Work Phone: Comment on above: Pattern: Regular 04-28-2008 16:22-0400 Respiratory rate 20 /min Blanca Gar RN [facility]; [facility] Work Phone: Comment on above: Pattern: Unlabored 04-28-2008 16:22-0400 Systolic blood pressure 120 mm[Hg] Blanca Gar RN [facility]; [facility] Work Phone: Comment on above: Patient Position: Sitting; Cuff Location : Right Arm; Cuff Size: Standard 10-05-2007 08:04-0500 Body height 180.34 cm Blanca Gar RN [facility]; [facility] Work Phone: Comment on above: his bp machine got 143/88 10-05-2007 08:04-0500 Body mass index (BMI) [Ratio] 28.77 kg/m2 Blanca Gar RN [facility]; [facility] Work Phone: Comment on above: his bp machine got 143/88 10-05-2007 08:04-0500 Body surface area Derived from formula 2.14 m2 Blanca Gar RN [facility]; [facility] Work Phone: Comment on above: his bp machine got 143/88 10-05-2007 08:04-0500 Body weight 93.58 kg Blanca Gar RN [facility]; [facility] Work Phone: Comment on above: his bp machine got 143/88 10-05-2007 08:04-0500 Diastolic blood pressure 82 mm[Hg] Blanca Gar RN [facility]; [facility] Work Phone: Comment on above: Patient Position: Sitting; Cuff Location : Left Arm; Cuff Size: Large his bp machine got 1 43/88 10-05-2007 08:04-0500 Head Occipital-frontal circumference 0 cm Blanca Gar RN [facility]; [facility] Work Phone: Comment on above: his bp machine got 143/88 10-05-2007 08:04-0500 Heart rate 72 /min Blanca Gar RN [facility]; [facility] Work Phone: Comment on above: Pattern: Regular his bp machine got 1 43/88 10-05-2007 08:04-0500 Respiratory rate 16 /min Blanca Gar RN [facility]; [facility] Work Phone: Comment on above: Pattern: Unlabored his bp machine got 1 43/88 10-05-2007 08:04-0500 Systolic blood pressure 142 mm[Hg] Blanca Gar RN [facility]; [facility] Work Phone: Comment on above: Patient Position: Sitting; Cuff Location : Left Arm; Cuff Size: Large his bp machine got 1 43/88 09-28-2007 08:47-0400 Body height 180.34 cm Blanca Gar RN [facility]; [facility] Work Phone: 09-28-2007 08:47-0400 Body mass index (BMI) [Ratio] 28.93 kg/m2 Blanca Gar RN [facility]; [facility] Work Phone: 09-28-2007 08:47-0400 Body surface area Derived from formula 2.14 m2 Blanca Gar RN [facility]; [facility] Work Phone: 09-28-2007 08:47-0400 Body weight 94.09 kg Blanca Gar RN [facility]; [facility] Work Phone: 09-28-2007 08:47-0400 Diastolic blood pressure 92 mm[Hg] Blanca Gar RN [facility]; [facility] Work Phone: Comment on above: Patient Position: Sitting; Cuff Location : Left Arm; Cuff Size: Standard 09-28-2007 08:47-0400 Head Occipital-frontal circumference 0 cm Blanca Gar RN [facility]; [facility] Work Phone: 09-28-2007 08:47-0400 Heart rate 72 /min Blanca Gar RN [facility]; [facility] Work Phone: Comment on above: Pattern: Regular 09-28-2007 08:47-0400 Respiratory rate 16 /min Blanca Gar RN [facility]; [facility] Work Phone: Comment on above: Pattern: Unlabored 09-28-2007 08:47-0400 Systolic blood pressure 142 mm[Hg] Blanca Gar RN [facility]; [facility] Work Phone: Comment on above: Patient Position: Sitting; Cuff Location : Left Arm; Cuff Size: Standard 09-10-2007 09:07-0400 Body height 180.34 cm Blanca Gar RN [facility]; [facility] Work Phone: 09-10-2007 09:07-0400 Body mass index (BMI) [Ratio] 28.93 kg/m2 Blanca Gar RN [facility]; [facility] Work Phone: 09-10-2007 09:07-0400 Body surface area Derived from formula 2.14 m2 Blanca Gar RN [facility]; [facility] Work Phone: 09-10-2007 09:07-0400 Body weight 94.09 kg Blanca Gar RN [facility]; [facility] Work Phone: 09-10-2007 09:07-0400 Diastolic blood pressure 92 mm[Hg] Blanca Gar RN [facility]; [facility] Work Phone: Comment on above: Patient Position: Sitting; Cuff Location : Left Arm; Cuff Size: Standard 09-10-2007 09:07-0400 Head Occipital-frontal circumference 0 cm Blanca Gar RN [facility]; [facility] Work Phone: 09-10-2007 09:07-0400 Heart rate 60 /min Blanca Gar RN [facility]; [facility] Work Phone: Comment on above: Pattern: Regular 09-10-2007 09:07-0400 Respiratory rate 16 /min Blanca Gar RN [facility]; [facility] Work Phone: Comment on above: Pattern: Unlabored 09-10-2007 09:07-0400 Systolic blood pressure 162 mm[Hg] Blanca Gar RN [facility]; [facility] Work Phone: Comment on above: Patient Position: Sitting; Cuff Location : Left Arm; Cuff Size: Standard Encounters Encounter Date Encounter Type Care Provider Facility Start: 08-12-2025 End: 08-12-2025 Telephone encounter Katerine Gamboa PA-C Work Phone: Urology Start: 07-01-2025 End: 07-01-2025 ambulatory Edwin [facility] Odilon Facility:[facility] Start: 06-09-2025 End: 06-09-2025 ambulatory Edwin Chi Odilon Facility:[facility] Start: 06-09-2025 End: 06-09-2025 ambulatory Edwin Chi Odilon Facility:[facility] Start: 06-03-2025 End: 06-03-2025 ambulatory [facility] Facility:[facility] Start: 05-06-2025 End: 05-06-2025 ambulatory Edwin Chi Odilon Facility:[facility] Start: 04-20-2025 End: 04-20-2025 Emergency department patient visit Dr. Edwin Donald MD Work Phone: -Emergency Department Work Phone: Start: 02-27-2025 End: 02-27-2025 Emergency department patient visit Dr. Edwin Donald MD Work Phone: -Emergency Department Work Phone: Start: 02-17-2025 End: 02-18-2025 Emergency department patient visit Dr. Edwin Donald MD Work Phone: -Emergency Department Work Phone: Start: 02-17-2025 End: 02-17-2025 Emergency department patient visit Dr. Edwin Donald MD Work Phone: -Emergency Department Work Phone: Start: 01-08-2025 End: 01-08-2025 Emergency department patient visit Dr. Jose Francisco Lieberman DO -Emergency Department Work Phone: Start: 01-07-2025 End: 01-07-2025 Office outpatient visit 10 minutes Anders Robertson MD Work Phone: [facility] [place] Comment on above: SDH (subdural hemato ma) (HCC) (Primary Dx) Start: 01-07-2025 End: 01-07-2025 ambulatory [facility] Start: 01-01-2025 End: 01-01-2025 Subsequent hospital visit by physician Edna Villasenor ONLINE MARKETING ANALYST - DIRECTOR OF USER EXPERIENCE Work Phone: [facility] Comment on above: Subdural hematoma (H CC) Start: 01-01-2025 End: 01-01-2025 ambulatory EDNA VILLASENOR [facility] Start: 12-19-2024 End: 12-19-2024 Telephone encounter Anders Robertson MD Work Phone: [facility] Comment on above: Reschedule Start: 12-17-2024 End: 12-18-2024 Evaluation and management of inpatient Jagjit Braga MD Work Phone: [facility] PCU 3W Comment on above: Subdural hematoma (H CC) (Primary Dx); Fall, initial encounter Start: 12-17-2024 End: 12-17-2024 Emergency department patient visit Dr. Tanner Mcduffie DO -Emergency Department Work Phone: Start: 12-03-2024 End: 12-03-[address] Edwin Donald MD -Laboratory, Phy Office 3rd Flr Start: 12-03-2024 End: 12-03-2024 ambulatory Edwin Chi Odilon Facility:[facility] Start: 12-02-2024 End: 12-02-2024 Emergency department patient visit Dr. Ravindra Delgado DO -Emergency Department Work Phone: Start: 05-21-2024 Telephone encounter Katerine munoz PA-C Work Phone: Urology Comment on above: Patient Update; Orde rs Start: 05-17-2024 End: 05-17-2024 Patient encounter procedure [facility] Start: 05-17-2024 End: 05-17-2024 ambulatory [facility] Comment on above: Wound Care Start: 05-16-2024 End: 05-16-2024 Patient encounter procedure [facility] Start: 05-16-2024 End: 05-16-2024 ambulatory [facility] Comment on above: Wound Care Start: 05-15-2024 End: 05-15-2024 Patient encounter procedure [facility] Start: 05-15-2024 End: 05-15-2024 ambulatory ED[facility]IL[facility] Comment on above: Wound Care Start: 05-14-2024 End: 05-14-2024 Patient encounter procedure [facility] Start: 05-14-2024 End: 05-14-2024 ambulatory ED[facility] Comment on above: Wound Care Start: 05-13-2024 End: 05-13-2024 Patient encounter procedure [facility] Start: 05-13-2024 End: 05-13-2024 ambulatory EDWIN SHARAN DONALD [facility] Comment on above: Wound Care Start: 05-10-2024 End: 05-10-2024 Patient encounter procedure [facility] Start: 05-10-2024 End: 05-10-2024 ambulatory [facility] Comment on above: Wound Care Start: 05-09-2024 End: 05-09-2024 Patient encounter procedure [facility] Start: 05-09-2024 End: 05-09-2024 ambulatory [facility] Comment on above: Wound Care Start: 05-08-2024 End: 05-08-2024 Patient encounter procedure [facility] Start: 05-08-2024 End: 05-08-2024 ambulatory [facility] Comment on above: Wound Care Start: 05-07-2024 End: 05-07-2024 Patient encounter procedure [facility] Start: 05-07-2024 End: 05-07-2024 ambulatory [facility] Comment on above: Wound Care Start: 05-06-2024 End: 05-06-2024 Patient encounter procedure [facility] Start: 05-06-2024 End: 05-06-2024 ambulatory [facility] Comment on above: Wound Care Start: 05-03-2024 End: 05-03-2024 ambulatory [facility] Comment on above: Wound Care Start: 05-03-2024 End: 05-03-2024 Patient encounter procedure [facility] Start: 05-02-2024 End: 05-03-2024 ambulatory ED[facility] Comment on above: Wound Care Start: 05-02-2024 End: 05-02-2024 Patient encounter procedure [facility] Start: 05-01-2024 End: 05-01-2024 Patient encounter procedure [facility] Start: 05-01-2024 End: 05-01-2024 ambulatory [facility] Comment on above: Wound Care Start: 04-30-2024 End: 04-30-2024 Patient encounter procedure [facility] Start: 04-30-2024 End: 04-30-2024 ambulatory [facility] Comment on above: Wound Care Start: 04-29-2024 End: 04-29-2024 Patient encounter procedure [facility] Start: 04-29-2024 End: 04-29-2024 ambulatory [facility] Comment on above: Wound Care Start: 04-26-2024 End: 04-26-2024 Patient encounter procedure [facility] Start: 04-26-2024 End: 04-26-2024 ambulatory [facility] Comment on above: Wound Care Start: 04-25-2024 End: 04-25-2024 Patient encounter procedure [facility] Start: 04-25-2024 End: 04-25-2024 ambulatory ED[facility]IL[facility] Comment on above: Wound Care Start: 04-24-2024 End: 04-24-2024 Patient encounter procedure [facility] Start: 04-24-2024 End: 04-24-2024 ambulatory [facility] Comment on above: Wound Care Start: 04-23-2024 End: 04-23-2024 Patient encounter procedure [facility] Start: 04-23-2024 End: 04-23-2024 ambulatory EDWIN [facility] ODILON [facility] Comment on above: Wound Care Start: 04-19-2024 End: 04-19-2024 Patient encounter procedure [facility] Start: 04-19-2024 End: 04-19-2024 ambulatory [facility] Comment on above: Wound Care Start: 04-18-2024 End: 04-24-2024 ambulatory ED[facility] Comment on above: Wound Care Start: 04-18-2024 End: 04-18-2024 Patient encounter procedure [facility] Start: 04-17-2024 End: 04-17-2024 Patient encounter procedure [facility] Start: 04-17-2024 End: 04-17-2024 ambulatory [facility] Comment on above: Wound Care Start: 04-16-2024 End: 04-16-2024 Patient encounter procedure [facility] Start: 04-16-2024 End: 04-16-2024 ambulatory EDWIN [facility] Comment on above: Wound Care Start: 04-15-2024 End: 04-16-2024 ambulatory ED[facility] Comment on above: Wound Care Start: 04-15-2024 End: 04-15-2024 Patient encounter procedure [facility] Start: 04-12-2024 End: 04-12-2024 Patient encounter procedure [facility] Start: 04-12-2024 End: 04-12-2024 ambulatory ED[facility] Comment on above: Wound Care Start: 04-11-2024 End: 04-11-2024 Patient encounter procedure [facility] Start: 04-11-2024 End: 04-11-2024 ambulatory [facility] Comment on above: Wound Care Start: 04-10-2024 End: 04-10-2024 Patient encounter procedure [facility] Start: 04-10-2024 End: 04-10-2024 ambulatory ED[facility] Comment on above: Wound Care Start: 04-09-2024 End: 04-10-2024 ambulatory ED[facility] Comment on above: Wound Care Start: 04-09-2024 End: 04-09-2024 Patient encounter procedure [facility] Start: 04-08-2024 End: 04-08-2024 Patient encounter procedure [facility] Start: 04-08-2024 End: 04-08-2024 ambulatory ED[facility] Comment on above: Wound Care Start: 04-06-2024 End: 04-07-2024 Emergency department patient visit [facility]Emergency Department Work Phone: Start: 04-05-2024 End: 04-06-2024 ambulatory [facility] Comment on above: Wound Care Start: 04-05-2024 End: 04-05-2024 Patient encounter procedure [facility] Start: 04-04-2024 End: 04-04-2024 Patient encounter procedure [facility] Start: 04-04-2024 End: 04-04-2024 ambulatory ED[facility] Comment on above: Wound Care Start: 04-03-2024 End: 04-03-2024 Patient encounter procedure [facility] Start: 04-03-2024 End: 04-03-2024 ambulatory ED[facility] Comment on above: Wound Care Start: 04-02-2024 End: 04-03-2024 ambulatory [facility] Comment on above: Wound Care Start: 04-02-2024 End: 04-02-2024 Patient encounter procedure [facility] Start: 04-01-2024 End: 04-01-2024 Patient encounter procedure [facility] Start: 04-01-2024 End: 04-01-2024 ambulatory [facility] Comment on above: Wound Care Start: 03-29-2024 End: 03-29-2024 Patient encounter procedure [facility] Start: 03-29-2024 End: 03-29-2024 ambulatory [facility] Comment on above: Wound Care Start: 03-28-2024 End: 03-29-2024 ambulatory ED[facility] Comment on above: Wound Care Start: 03-28-2024 End: 03-28-2024 Patient encounter procedure [facility] Start: 03-26-2024 End: 03-26-2024 Patient encounter procedure [facility] Start: 03-26-2024 End: 03-26-2024 ambulatory [facility] Comment on above: Wound Care Start: 03-25-2024 End: 03-25-2024 Patient encounter procedure [facility] Start: 03-25-2024 End: 03-25-2024 ambulatory [facility] Comment on above: Wound Care Start: 02-27-2024 End: 02-27-2024 ambulatory KATERINE GAMBOA Facility[facility] Start: 02-27-2024 End: 02-27-2024 Patient encounter procedure Katerine Gamboa PA-C Work Phone: Urology Comment on above: Radiation cystitis ( Primary Dx); History of prostate cancer; Urinary frequency; Urinary hesitancy; Screening for genitourinary condition Start: 11-02-2023 End: 11-02-2023 ambulatory [facility] Work Phone: Start: 11-02-2023 End: 11-02-2023 Patient encounter procedure [facility]-Laboratory, Phy Office 3rd Flr Start: 09-04-2023 End: 09-04-2023 Emergency department patient visit [facility]-Emergency Department Work Phone: Start: 05-23-2023 End: 05-23-2023 ambulatory [facility] Work Phone: Start: 05-23-2023 End: 05-23-2023 Patient encounter procedure [facility]Labor[facility] Work Phone: Start: 11-01-2022 End: 11-01-[address] Edwin Donald Work Phone: [facility] Work Phone: Start: 11-01-2022 End: 11-01-[address] [facility] Start: 10-26-2022 End: 10-26-[address] Edwin Donald Work Phone: [facility] Start: 10-18-2022 End: 10-18-[address] Edwin Donald Work Phone: [facility] Work Phone: Start: 10-18-2022 End: 10-18-[address] Edwin [facility] Start: 10-18-2022 End: 10-18-[address] Edwin Donald Work Phone: [facility] Start: 09-09-2022 Non-patient / Non-visit Dr. Alejandro Donald Work Phone: [facility] Start: 09-09-2022 End: 09-09-2022 Admission to same day surgery center Dr. Edwin Donald Work Phone: [facility]Endoscopy Start: 08-15-2022 End: 08-15-[address] Edwin Donald Work Phone: [facility] Start: 05-03-2022 End: 05-03-2022 [facility] Start: 04-15-2022 End: 04-15-2022 Patient encounter procedure [facility] Start: 01-05-2022 End: 01-05-2022 [facility] Start: 10-25-2018 Emergency department patient visit [facility] Start: 12-07-2015 End: 12-07-2015 Office outpatient visit 25 minutes Amber Waleska DO Work Phone: [facility] Start: 09-01-2015 End: 09-01-2015 Annotation/Addendum Amber Waleska DO Work Phone: [facility] Start: 07-20-2015 End: 07-20-2015 Phone Encounter Amber Waleska DO Work Phone: [facility] Start: 07-08-2015 End: 07-08-2015 Office outpatient visit 15 minutes Amber Waleska DO Work Phone: [facility] Start: 2015 End: 2015 Annotation/Addendum Amber Waleska DO Work Phone: [facility] Start: 2015 End: 2015 Office outpatient visit 15 minutes Amber Waleska DO Work Phone: [facility] Start: 06-19-2015 End: 06-27-2015 Office outpatient visit 5 minutes Amber Waleska DO Work Phone: [facility] Start: 05-15-2015 End: 05-15-2015 Office outpatient visit 5 minutes Amber Waleska DO Work Phone: [facility] Start: 04-17-2015 End: 04-17-2015 Nursing evaluation of patient and report Amber Waleska DO Work Phone: [facility] Start: 04-03-2015 End: 04-03-2015 Office outpatient visit 15 minutes Amber Waleska DO Work Phone: [facility] Start: 03-23-2015 End: 03-23-2015 Office outpatient visit 5 minutes Amber Waleska DO Work Phone: [facility] Start: 03-18-2015 End: 03-18-2015 Lab Order Amber Waleska DO Work Phone: [facility] Start: 03-16-2015 End: 03-16-2015 Phone Encounter Amber Waleska DO Work Phone: [facility] Start: 03-13-2015 End: 03-13-2015 Office outpatient visit 25 minutes Amber Waleska DO Work Phone: [facility] Start: 03-02-2015 End: 03-02-2015 Office outpatient visit 25 minutes Amber Waleska DO Work Phone: [facility] Start: 02-18-2015 End: 02-18-2015 Office outpatient visit 25 minutes Amber Waleska DO Work Phone: [facility] Start: 10-28-2014 End: 10-28-2014 Annotation/Addendum Amber Waleska DO Work Phone: [facility] Start: 10-27-2014 End: 10-27-2014 Office outpatient visit 15 minutes Amber Waleska DO Work Phone: [facility] Start: 09-26-2014 End: 09-26-2014 Office outpatient visit 15 minutes Amber Waleska DO Work Phone: [facility] Start: 09-22-2014 End: 09-22-2014 Annotation/Addendum Amber Waleska DO Work Phone: [facility] Start: 09-09-2014 End: 09-09-2014 Office outpatient visit 15 minutes Amber Waleska DO Work Phone: [facility] Start: 08-26-2014 End: 08-26-2014 Office outpatient visit 25 minutes Amber Waleska DO Work Phone: [facility] Start: 08-12-2014 End: 08-12-2014 Office outpatient visit 15 minutes Amber Waleska DO Work Phone: [facility] Start: 08-04-2014 End: 08-04-2014 Office outpatient visit 25 minutes Amber Waleska DO Work Phone: [facility] Start: 07-08-2014 End: 07-08-2014 Office outpatient visit 25 minutes Amber Waleska DO Work Phone: [facility] Start: 07-01-2014 End: 07-01-2014 Office outpatient visit 25 minutes Amber Waleska DO Work Phone: [facility] Start: 06-23-2014 End: 06-23-2014 Office outpatient visit 25 minutes Amber Waleska DO Work Phone: [facility] Start: 05-13-2014 End: 05-13-2014 Nursing evaluation of patient and report Amber Waleska DO Work Phone: [facility] Start: 05-05-2014 End: 05-05-2014 Annotation/Addendum Amber Waleska DO Work Phone: [facility] Start: 04-30-2014 End: 04-30-2014 Annotation/Addendum Amber Waleska DO Work Phone: [facility] Start: 04-28-2014 End: 04-28-2014 Phone Encounter Amber Waleska DO Work Phone: [facility] Start: 03-26-2014 End: 03-26-2014 Annotation/Addendum Amber Waleska DO Work Phone: [facility] Start: 03-12-2014 End: 03-12-2014 Annotation/Addendum Amber Waleska DO Work Phone: [facility] Start: 03-12-2014 End: 03-12-2014 Office outpatient visit 15 minutes Amber Waleska DO Work Phone: [facility] Start: 03-10-2014 End: 03-10-2014 Office outpatient visit 25 minutes Amber Waleska DO Work Phone: [facility] Start: 03-03-2014 End: 03-03-2014 Office outpatient visit 15 minutes Amber Waleska DO Work Phone: [facility] Start: 02-25-2014 End: 02-25-2014 Office outpatient visit 15 minutes Amber Waleska DO Work Phone: [facility] Start: 02-25-2014 End: 02-25-2014 Annotation/Addendum Amber Waleska DO Work Phone: [facility] Start: 02-21-2014 End: 02-21-2014 Office outpatient visit 25 minutes Amber Waleska DO Work Phone: [facility] Start: 02-17-2014 End: 02-17-2014 Phone Encounter Amber Waleska DO Work Phone: [facility] Start: 02-12-2014 End: 02-12-2014 Annotation/Addendum Amber Waleska DO Work Phone: [facility] Start: 02-10-2014 End: 02-10-2014 Annotation/Addendum Amber Waleska DO Work Phone: [facility] Start: 02-10-2014 End: 02-10-2014 Office outpatient visit 25 minutes Amber Waleska DO Work Phone: [facility] Start: 12-18-2013 End: 12-18-2013 Annotation/Addendum Amber Waleska DO Work Phone: [facility] Start: 09-24-2013 End: 09-24-2013 Office outpatient visit 15 minutes Amber Waleska DO Work Phone: [facility] Start: 02-25-2013 End: 02-25-2013 Annotation/Addendum Amber Waleska DO Work Phone: [facility] Start: 02-05-2013 End: 02-05-2013 Office outpatient visit 15 minutes Amber Waleska DO Work Phone: [facility] Start: 11-23-2012 End: 11-23-2012 Office outpatient visit 15 minutes Amber Waleska DO Work Phone: [facility] Start: 11-06-2012 End: 11-06-2012 Annotation/Addendum Amber Waleska DO Work Phone: [facility] Start: 11-05-2012 End: 11-05-2012 Office outpatient visit 25 minutes Amber Waleska DO Work Phone: [facility] Start: 08-27-2012 End: 08-27-2012 Phone Encounter Amber Waleska DO Work Phone: [facility] Start: 03-21-2012 End: 03-21-2012 Phone Encounter Amber Waleska DO Work Phone: [facility] Start: 03-13-2012 End: 03-13-2012 Annotation/Addendum Amber Waleska DO Work Phone: [facility] Start: 03-09-2012 End: 03-09-2012 Annotation/Addendum Amber Waleska DO Work Phone: [facility] Start: 03-07-2012 End: 03-07-2012 Phone Encounter Amber Waleska DO Work Phone: [facility] Start: 12-09-2011 End: 12-09-2011 Office outpatient visit 25 minutes Amber Waleska DO Work Phone: [facility] Start: 12-02-2011 End: 12-02-2011 Admission to establishment Amber Waleska DO Work Phone: [facility] Start: 12-01-2011 End: 12-01-2011 Patient encounter procedure Amber Waleska DO Work Phone: [facility] Start: 11-30-2011 End: 11-30-2011 Annotation/Addendum Amber Waleska DO Work Phone: [facility] Start: 11-25-2011 End: 11-25-2011 Phone Encounter Amber Waleska DO Work Phone: [facility] Start: 10-12-2011 End: 10-12-2011 Patient encounter procedure Amber Waleska DO Work Phone: [facility] Start: 08-12-2011 End: 08-12-2011 Office outpatient visit 25 minutes Amber Waleska DO Work Phone: [facility] Start: 07-29-2011 End: 07-29-2011 Office outpatient visit 25 minutes Amber Waleska DO Work Phone: [facility] Start: 04-06-2011 End: 04-06-2011 Phone Encounter Amber Waleska DO Work Phone: [facility] Start: 03-11-2011 End: 03-11-2011 Office outpatient visit 25 minutes Amber Waleska DO Work Phone: [facility] Start: 01-28-2011 End: 01-28-2011 Office outpatient visit 25 minutes Amber Waleska DO Work Phone: [facility] Start: 01-14-2011 End: 01-14-2011 Office outpatient visit 25 minutes Amber Waleska DO Work Phone: [facility] Start: 12-08-2010 End: 12-08-2010 Annotation/Addendum Amber Waleska DO Work Phone: [facility] Start: 10-25-2010 End: 10-25-2010 Phone Encounter Amber Waleska DO Work Phone: [facility] Start: 10-04-2010 End: 10-04-2010 Patient encounter procedure Amber Waleska DO Work Phone: [facility] Start: 09-27-2010 End: 09-27-2010 Patient encounter procedure Amber Waleska DO Work Phone: [facility] Start: 09-06-2010 End: 09-06-2010 Patient encounter procedure Amber Waleska DO Work Phone: [facility] Start: 08-26-2010 End: 08-26-2010 Patient encounter procedure Amber Waleska DO Work Phone: [facility] Start: 10-20-2009 End: 10-20-2009 Patient encounter procedure Amber Waleska DO Work Phone: [facility] Start: 05-26-2009 End: 05-26-2009 Office outpatient visit 15 minutes Amber Waleska DO Work Phone: [facility] Start: 05-15-2009 End: 05-15-2009 Office outpatient visit 25 minutes Amber Waleska DO Work Phone: [facility] Start: 05-07-2009 End: 05-07-2009 Office outpatient visit 25 minutes Amber Waleska DO Work Phone: [facility] Start: 04-16-2009 End: 04-16-2009 Office outpatient visit 15 minutes Amber Waleska DO Work Phone: [facility] Start: 02-16-2009 End: 02-16-2009 Patient encounter procedure Amber Waleska DO Work Phone: [facility] Start: 01-19-2009 End: 01-19-2009 Patient encounter procedure Amber Waleska DO Work Phone: [facility] Start: 12-29-2008 End: 12-29-2008 Office outpatient visit 15 minutes Amber Waleska DO Work Phone: [facility] Start: 10-27-2008 End: 10-27-2008 Patient encounter procedure Amber Waleska DO Work Phone: [facility] Start: 08-05-2008 End: 08-05-2008 Patient encounter procedure Amber Waleska DO Work Phone: [facility] Start: 07-18-2008 End: 07-18-2008 Historical Summary Amber Waleska DO Work Phone: [facility] Start: 04-28-2008 End: 04-28-2008 Patient encounter procedure Amber Waleska DO Work Phone: [facility] Start: 10-05-2007 End: 10-05-2007 Office outpatient visit 15 minutes Amber Waleska DO Work Phone: [facility] Start: 09-28-2007 End: 09-28-2007 Office outpatient visit 25 minutes Amber Waleska DO Work Phone: [facility] Start: 09-10-2007 End: 09-10-2007 Patient encounter procedure Amber Waleska DO Work Phone: [facility] Procedures Date Procedure Procedure Detail Performing Clinician Start: 04-20-2025 X-ray of chest, PA and lateral views Dr. Edwin Donald MD Work Phone: Start: 04-20-2025 CT of head without contrast Dr. Edwin Donald MD Work Phone: Start: 04-20-[address] Edwin Donald MD Work Phone: Start: 02-27-[address] Edwin Donald MD Work Phone: Start: 02-17-2025 CT of head without contrast Dr. Edwin Donald MD Work Phone: Start: 02-17-2025 Plain chest X-ray Dr. Edwin Donald MD Work Phone: Start: 02-17-[address] Edwin Donald MD Work Phone: Start: 01-08-2025 CT cervical spine without contrast Dr. Edwin Donald MD Work Phone: Start: 01-08-2025 CT of head without contrast Dr. Edwin Donald MD Work Phone: Start: 01-07-2025 Follow-up visit Follow-up ANDERS SHERRI Start: 01-01-2025 Ct head/brain w/o contrast material Edna Villasenor ONLINE MARKETING ANALYST - DIRECTOR OF USER EXPERIENCE Work Phone: Start: 12-18-2024 Ct head/brain w/o contrast material Hector Galeano MD Work Phone: Start: 12-18-2024 Basic metabolic panel calcium total [place] JARA Work Phone: Start: 12-17-2024 CT cervical spine without contrast Dr. Edwin Donald MD Work Phone: Start: 12-17-2024 CT of head without contrast Dr. Edwin Donald MD Work Phone: Start: 12-02-2024 X-ray of chest, PA and lateral views Dr. Edwin Donald MD Work Phone: Start: 04-06-2024 Plain chest X-ray Start: 02-27-2024 Urnls dip stick/tablet rgnt auto w/o microscopy Katerine MORSE-C Work Phone: Start: 09-04-2023 CT of head without contrast Start: 09-09-[address] Edwin Donald Work Phone: Start: 12-19-2016 End: 12-20-2016 *CBC w/Diff - oncology ONLY Alix Arguello Work Phone: Start: 12-19-2016 End: 12-19-2016 *CMP Complete Metabolic Panel Alix Arguello Work Phone: Start: 12-19-2016 End: 12-20-2016 Carcinoembryonic antigen Alix Arguello Work Phone: Start: 12-19-2016 End: 12-19-2016 Lactate dehydrogenase (LDH) Alix Arguello Work Phone: Start: 12-19-2016 End: 12-19-2016 Urate Alix Arguello Work Phone: Start: 09-26-2016 End: 09-27-2016 *CBC w/Diff - oncology ONLY Idania R Pratik DIRECTOR OF USER EXPERIENCE Work Phone: Start: 09-26-2016 End: 09-27-2016 *CMP Complete Metabolic Panel Idania R Pratik DIRECTOR OF USER EXPERIENCE Work Phone: Start: 09-26-2016 End: 09-27-2016 Lactate dehydrogenase (LDH) Idania R Pratik DIRECTOR OF USER EXPERIENCE Work Phone: Start: 09-26-2016 End: 09-27-2016 Urate Idania R Pratik DIRECTOR OF USER EXPERIENCE Work Phone: Start: 07-18-2016 Colonoscopy Katerine Gamboa PA-C Work Phone: Start: 04-18-2016 End: 04-19-2016 *CMP Complete Metabolic Panel Idania R Pratik DIRECTOR OF USER EXPERIENCE Work Phone: Start: 04-18-2016 End: 04-20-2016 Lactate dehydrogenase (LDH) Idania R Pratik DIRECTOR OF USER EXPERIENCE Work Phone: Start: 04-18-2016 End: 04-19-2016 Urate Idania R Pratik DIRECTOR OF USER EXPERIENCE Work Phone: Start: 04-04-2016 End: 04-04-2016 *CMP Complete Metabolic Panel Alix Arguello Work Phone: Start: 04-04-2016 End: 04-04-2016 Carcinoembryonic antigen Alix Arguello Work Phone: Start: 04-04-2016 End: 04-04-2016 Lactate dehydrogenase (LDH) Alix Arguello Work Phone: Start: 03-28-2016 End: 03-28-2016 *CMP Complete Metabolic Panel Alix Arguello Work Phone: Start: 03-28-2016 End: 03-28-2016 Lactate dehydrogenase (LDH) Alix Arguello Work Phone: Start: 03-28-2016 End: 03-28-2016 Urate Alix Arguello Work Phone: Start: 03-14-2016 End: 03-14-2016 *CMP Complete Metabolic Panel Idania R Pratik DIRECTOR OF USER EXPERIENCE Work Phone: Start: 02-24-2016 End: 02-24-2016 *CMP Complete Metabolic Panel Idania R Pratik DIRECTOR OF USER EXPERIENCE Work Phone: Start: 02-24-2016 End: 02-24-2016 Urate Idania R Pratik DIRECTOR OF USER EXPERIENCE Work Phone: Start: 02-17-2016 End: 02-17-2016 *CMP Complete Metabolic Panel Idania R Pratik DIRECTOR OF USER EXPERIENCE Work Phone: Start: 02-02-2016 End: 02-09-2016 *CMP Complete Metabolic Panel Alix Arguello Work Phone: Start: 02-02-2016 End: 02-02-2016 Lactate dehydrogenase (LDH) Alix Arguello Work Phone: Start: 02-02-2016 End: 02-09-2016 Magnesium Alix Gonsalves Alameliton Work Phone: Start: 02-02-2016 End: 02-09-2016 Urate Alix Arguello Work Phone: Start: 01-26-2016 End: 01-26-2016 *CMP Complete Metabolic Panel Alix Arguello Work Phone: Start: 01-26-2016 End: 01-26-2016 Lactate dehydrogenase (LDH) Thomson M Alam Work Phone: Start: 01-26-2016 End: 01-26-2016 Urate Thomson M Alam Work Phone: Start: 01-18-2016 End: 01-20-2016 *CMP Complete Metabolic Panel Thomson M Alam Work Phone: Start: 01-18-2016 End: 01-20-2016 Urate Thomson M Alam Work Phone: Start: 01-11-2016 End: 01-11-2016 *CMP Complete Metabolic Panel Thomson M Alam Work Phone: Start: 01-11-2016 End: 01-11-2016 Lactate dehydrogenase (LDH) Thomson M Alam Work Phone: Start: 01-11-2016 End: 01-11-2016 Urate Thomson M Alam Work Phone: Start: 12-28-2015 End: 12-28-2015 *BMP Thomson M Alam Work Phone: Start: 12-21-2015 End: 12-21-2015 *BMP Thomson M Alam Work Phone: Start: 12-21-2015 End: 12-28-2015 *CBC with Differential Thomson M Alam Work Phone: Start: 12-16-2015 End: 12-16-2015 Emergency Department Summary Comments: See Note; NOTES: [facility] Medical Records Department [address] [place] [address] Emergency Department Summary MR#: [id number] Acct: [id number] Name: TANNER PORTER Rep #: [id number] : 1955 60 From: Pradeep Easton MD PCP: Amber Galeano DO Status: [facility] ER DATE OF SERVICE: 12/12/2015 CHIEF COMPLAINT: Right rib pain. HISTORY OF PRESENT ILLNESS: The patient comes in with the pain in his right rib, he had a couple of weeks ago. He has had it little bit worse then, a little more extensive up and down the right side, but today, in the last few days it just came back as a small area and he points to the anterior chest around the mid clavicular line at the costal margin. He had spoken with Dr. Arguello, his oncologist because of colon cancer and was advised to get checked, so he finally decided to come in. He has never had a PE, but obviously at risk. PHYSICAL EXAMINATION: VITAL SIGNS: Stable. Pulse oximetry 97% on room air. His pulse in the 80s, and respiratory rate is 16. HEENT: Normal. Mucous membranes were moist. NECK: Supple. No adenopathy. HEART: Regular with normal S1, S2. CHEST: Clear, no wheezes, rhonchi, or accessory muscle use. He has a little bit of tenderness in the midclavicular line at the costal margin, anterior right chest without crepitus, deformity, or discoloration. ABDOMEN: Soft. No pain on palpation. Good bowel sound. No hepatomegaly. EXTREMITIES: Flank and extremities without cyanosis or edema. No calf pain or cords. NEUROLOGICAL: Alert and oriented x3. TREATMENT: Chest x-ray showed some chronic changes. I do not see anything acute. Needs review by radiologist. CBC and chemistries normal. ALT and AST up respectively at ____ and 84. His D-dimer was only 3.4. The patient had a CTA of chest that showed a small nonocclusive right inferior pulmonary artery embolus. The patient seems to be doing well with this. I spoke with Dr. Arguello after I started treatment and he agreed. We are going to start him on Xarelto ____ mg twice a day for 3 weeks and then he will reevaluated before that for another prolonged course at 20 mg. At this point, he is going to see if his insurance will cover, we have social service's help. If not, we may have to get him the first few doses to go. The patient is stable. He voiced understanding. Recheck immediately for worse pain, fever, chills, nausea, vomiting, chest pain, trouble breathing or dizziness. DIAGNOSIS: Acute right pulmonary embolism. MD Sri Gutierrez C: Amber Lindsey T: BALAJI JOB: [id number] 12/16/15 0741 <Electronically signed by Pradeep Easton MD> Date Pradeep Crookigner Signature (If Indicated): Date CC: Amber Galeano DO; Brandon Arguello Date Dictated: 12/12/151633 Date Transcribed: 12/12/151633 Accounting Software Specialist: Signed Amber Galeano DO Work Phone: Start: 12-14-2015 End: 12-28-2015 *CBC with Differential Thomson M Saundra Work Phone: Start: 12-14-2015 End: 12-14-2015 *CMP Complete Metabolic Panel Alix Gonsalves Alameliton Work Phone: Start: 12-14-2015 End: 12-14-2015 Lactate dehydrogenase (LDH) Alix Gonsalves Saundra Work Phone: Start: 12-14-2015 End: 12-14-2015 Magnesium Thomson Meliton Arguello Work Phone: Start: 12-14-2015 End: 12-14-2015 Urate Thomson Meliton Arguello Work Phone: Start: 12-12-2015 End: 12-12-2015 Discharge Instruction Comments: See Note; NOTES: [facility] Medical Records Department [address] [place] [address] Discharge Instruction 12/12/151656 MR#: [id number] Acct: [id number] Name: TANNER PORTER Rep #: [id number] : 1955 60 From: Derik Hansen MD PCP: Amber Galeano DO Status: DEP ER ED Disposition - Plan for ED Patient: Disposition: Home or Assisted Living Chief Complaint: Abd Pain Instructions: Pulmonary Embolism Prescriptions: Rivaroxaban [Xarelto] 15 mg PO BID #42 tablet Rivaroxaban [Xarelto] 15 mg PO BID #4 tablet Referrals: Brandon Arguello MD [STAFF PHYSICIAN] - 3-5 Days Additional Instructions: You will need another Rx in 2 weeks for 20mg aday until released. Blood thinners can be very dangerous, especially with head injures. What to do if you have Problems For any increased pain, shortness of breath, bleeding, nausea or vomiting, chest pain, or any unexpected problems, contact your doctor. Call [facility] ([phone]) or report to the closest Emergency Room. Call 911 if necessary. 12/12/15 3180 <Electronically signed by Derik Hansen MD> Date Derik Hansen MD Cosigner Signature (If Indicated): Date CC: Amber So DO Work Phone: Start: 12-12-2015 End: 12-12-2015 Discharge Instruction Comments: See Note; NOTES: [facility] Medical Records Department [address] [place] [address] Discharge Instruction 12/12/15 1524 MR#: [id number] Acct: [id number] Name: GERMANTANNER Minna Rep #: [id number] : 1955 60 From: Pradeep Easton MD PCP: Amber Galeano DO Status: REG ER ED Disposition - Plan for ED Patient: Chief Complaint: Abd Pain Instructions: Pulmonary Embolism Prescriptions: Rivaroxaban [Xarelto] 15 mg PO BID #42 tablet Referrals: Brandon Arguello MD [STAFF PHYSICIAN] - 3-5 Days Additional Instructions: You will need another Rx in 2 weeks for 20mg aday until released. Blood thinners can be very dangerous, especially with head injures. What to do if you have Problems For any increased pain, shortness of breath, bleeding, nausea or vomiting, chest pain, or any unexpected problems, contact your doctor. Call [facility] ([phone]) or report to the closest Emergency Room. Call 911 if necessary. 12/12/15 1527 <Electronically signed by Pradeep Easton MD> Date Pradeep Easton MD Cosigner Signature (If Indicated): Date CC: Amber So DO Work Phone: Start: 12-12-2015 End: 12-12-2015 CTA Chest W/WO Contrast Comments: See Note; NOTES: [facility] Imaging Services [address] [place] [address] Verdana 4d CTA Chest W/WO Contrast MR#: [id number] Acct: [id number] Name: TANNER PORTER Rep #: [id number] : 1955 M 60 From: Corrine Lan MD PCP: Amber Galeano DO Status: REG ER Study: CTA Chest W/WO Contrast Date of Exam: 12/12/15 Exam# [id number] Ordering Dr: Pradeep Easton MD STUDY: CTA CHEST REASON FOR EXAM: Male, 60 years old. Elevated d-dimer, history of colon cancer, colectomy 08/2015, on chemotherapy now. RADIATION DOSAGE (If Supplied By Facility): CTDIvol = ( 17.92 ) mGy, DLP = ( 721.21 ) mGycm TECHNIQUE: The examination was performed with the intravenous administration of 100 ml of Isovue 370 contrast material. Post-processing of the angiographic images was performed, with multiplanar reformation and 3D reconstruction. COMPARISON: CT chest 10/06/2015. PET scan 10/12/2015. FINDINGS: Left subclavian approach port with catheter tip at the caval atrial junction. Normal enhancement of the main pulmonary artery and proximal right and left pulmonary arteries. There is a nonocclusive opacification in the right inferior pulmonary artery segmental and subsegmental course with new curvilinear pleural-based indistinct density in the posterior medial right base. Normal thoracic aorta and visualized great vessels. There is no demonstrated aortic dissection. Normal heart and pericardium. Stable left artery tail and aortopulmonary window lymph nodes with short axis of 0.9 cm. Normal hilar regions. Normal visualized trachea and bronchi. The lungs are well expanded. Normal pulmonary parenchyma. Normal pleura. Normal chest wall structures. There are degenerative changes of thoracic spine. There are no osteolytic or blastic lesions. Normal visualized upper abdomen. IMPRESSION: Small nonexclusive right inferior pulmonary artery embolus with pleural-based density corresponding to perfusion distribution. No thoracic aortic aneurysm, dissection or leak. Stable borderline mediastinal lymph nodes possible hyperplasia. N.B. : The above information has been verbally conveyed by Corrine Lan MD to Dr Easton, covering physician, on 12/12/2015 14:28:25 (ET). Electronically Signed: Corrine Lan MD at 14:32 EST , Service support [phone], N.B. : The above information has been verbally conveyed by Corrine Lan MD to Dr Easton, covering physician, on 12/12/2015 14:28:25 (ET). CC: Pradeep Easton MD; Amber Galeano DO Accounting Software Specialist: Signed Amber Galeano DO Work Phone: Start: 12-12-2015 End: 12-12-2015 Chest PA and Lateral Comments: See Note; NOTES: [facility] Imaging Services [facility] [place] [address] Verdana 4d Chest PA and Lateral MR#: [id number] Acct: [id number] Name: GERMANTANNER Rep #: [id number] : 1955 M 60 From: Chace Ferrari MD PCP: Amber Galeano DO Status: DEP ER Study: Chest PA and Lateral Date of Exam: 12/12/15 Exam# [id number] Ordering Dr: Pradeep Easton MD STUDY: X-RAY CHEST REASON FOR EXAM: Male, 60 years old. Right there is chest pain x2 days. History of colon cancer. TECHNIQUE: Frontal and lateral views of the chest. COMPARISON: CTA chest December 12, 2015 and chest x-ray from same day FINDINGS: There is a new left subclavian MediPort terminating in the right atrium. The lungs are clear and expanded. There is no pneumothorax. Normal size heart. Normal mediastinum and kristin. Normal visualized pulmonary arteries. Normal visualized aortic arch and descending thoracic aorta. Normal visualized thoracic spine. Normal visualized ribs, clavicles, and shoulders. There is no demonstrated abnormality of the visualized soft tissue structures of the upper abdomen. IMPRESSION: Normal x-ray examination of the chest. Electronically Signed: Chace Ferrari MD at 19:22 EST , Service support [phone], RAD/Chest PA and Lateral IMPRESSION: Normal x-ray examination of the chest. Electronically Signed: Chace Ferrari MD at 19:22 EST , Service support [phone], CC: Pradeep Easton MD; Amber Galeano DO Accounting Software Specialist: Signed Amber Galeano DO Work Phone: Start: 11-30-2015 End: 12-28-2015 *CBC with Differential Ricardo Garcia DO Start: 11-30-2015 End: 12-01-2015 *CMP Complete Metabolic Panel Ricardo Garcia DO Start: 11-30-2015 End: 12-01-2015 Lactate dehydrogenase (LDH) Ricardo Garcia DO Start: 11-30-2015 End: 12-01-2015 Magnesium Ricardo Garcia DO Start: 11-30-2015 End: 12-28-2015 Phosphate Ricardo Garcia DO Start: 11-30-2015 End: 12-01-2015 Urate Ricardo Garcia DO Start: 11-16-2015 End: 12-28-2015 *CBC with Differential Thomson M Alam Work Phone: Start: 11-16-2015 End: 11-16-2015 *CMP Complete Metabolic Panel Thomson M Alam Work Phone: Start: 11-16-2015 End: 11-16-2015 Lactate dehydrogenase (LDH) Thomson M Alam Work Phone: Start: 11-16-2015 End: 11-16-2015 Magnesium Thomson M Alam Work Phone: Start: 11-16-2015 End: 11-16-2015 Phosphate Thomson M Alam Work Phone: Start: 11-02-2015 End: 12-28-2015 *CBC with Differential Thomson M Alam Work Phone: Start: 11-02-2015 End: 11-02-2015 *CMP Complete Metabolic Panel Thomson M Alam Work Phone: Start: 11-02-2015 End: 11-02-2015 Magnesium Thomson M Alam Work Phone: Start: 11-02-2015 End: 11-02-2015 Urate Thomson M Alam Work Phone: Start: 10-26-2015 End: 12-28-2015 *CBC with Differential Thomson M Alam Work Phone: Start: 10-26-2015 End: 10-26-2015 *CMP Complete Metabolic Panel Thomson M Alam Work Phone: Start: 10-26-2015 End: 10-26-2015 Lactate dehydrogenase (LDH) Thomson M Alam Work Phone: Start: 10-26-2015 End: 10-26-2015 Magnesium Alix Arguello Work Phone: Start: 10-26-2015 End: 10-26-2015 Urgeraldo Arguello Work Phone: Start: 10-19-2015 End: 12-28-2015 *CBC with Differential Alix Arguello Work Phone: Start: 10-19-2015 End: 10-19-2015 *CMP Complete Metabolic Panel Alix Arguello Work Phone: Start: 10-19-2015 End: 10-19-2015 Lactate dehydrogenase (LDH) Alix Arguello Work Phone: Start: 10-19-2015 End: 10-19-2015 Magnesium Alix Arguello Work Phone: Start: 10-19-2015 End: 10-19-2015 Urgeraldo Arguello Work Phone: Start: 10-09-2015 End: 12-07-2015 PET/CT Tumor Base -Thigh Init Comments: See Note; NOTES: [facility] Imaging Services [address] [place] [address] Verdana 4d PET/CT Tumor Base -Thigh Init MR#: [id number] Acct: [id number] Name: TANNER PORTER Minna Rep #: [id number] : 1955 M 60 From: Anthony Bernstein DO PCP: Amber Galeano DO Status: REG CLI Study: PET/CT Tumor Base -Thigh Init Date of Exam: 10/12/15 Exam# [id number] Ordering Dr: Brandon Arguello MD INDICATIONS: 60-year-old male with reported history of colorectal carcinoma presenting for initial staging examination, status post apparent resection. COMPARISON EXAMINATION: CT of the chest, abdomen and pelvis reports dated 10/06/15. TECHNIQUE: Following the intravenous administration of 18.8 mCi of F-18 deoxyglucose, multiplanar image acquisitions of the neck, chest, abdomen and pelvis to level of mid thigh, obtained at one hour post radiopharmaceutical administration contemporaneously interpreted with the current CT of the neck, chest, abdomen and pelvis to level of mid thigh, dated 10/12/[address] of the chest, abdomen and pelvis reports dated 10/06/15 reveal: FINDINGS: 1. Mild increased glucose concentration is manifest in two separate locations within the right axilla generating a calculated maximum standard uptake value of 1.2. Quantitative criteria for viable neoplasm are not fulfilled. 2. Normal physiologic distribution of the radiopharmaceutical is apparent in the hepatic (3.2) and splenic parenchyma, both renal units, bladder and visualized intestinal tract. There is uniform distribution of the radiopharmaceutical concentration compared on the cerebellar hemispheres and cerebral cortex. Diffuse intestinal tract activity is noted throughout all four quadrants of the abdominal-pelvic retroperitoneum, mesentery consistent with normal physiologic distribution of the radiopharmaceutical. Prominent glucose metabolism is defined in the descending thoracic and abdominal aorta. A linear increase in glucose metabolism is defined in the mid-lower anterior midline pelvic wall consistent with postsurgical change. Pertinent CT findings are as follows. CHEST: Kuvl-O-Rbbo-MediPort placement is noted. Atherosclerotic calcification is defined in the thoracic aorta without evidence of dilatation, aneurysm formation. Coronary arterial calcification is observed. Scattered bilateral axillary and mediastinal soft tissue is ametabolic. There are no parenchymal densities-nodules defined in the right-left hemithorax manifesting quantitatively significant increased glucose metabolism. ABDOMEN AND PELVIS: Atherosclerotic calcification is defined in the abdominal aorta without evidence of dilatation, aneurysm formation. Pelvic arterial calcification is observed. Bilateral fat-containing inguinal hernias are noted. Right-left inguinal soft tissue densities are non-glucose avid. Apparent dense calcification is noted in the lower pelvis contiguous to the prostate gland. SKELETAL: Degenerative changes defined in the cervical, thoracic and lumbar spine demonstrate no evidence for glucose hypermetabolism. IMPRESSION: 1. NEGATIVE EXAMINATION. There is no definitive quantitative scintigraphic evidence of residual-metastatic viable neoplasm. 2. Prominent glucose concentration observed in the descending thoracic, as well as abdominal aorta is commensurate with activated leukocytes associated with atherosclerotic plaque formation. (Cash et al, Clinical Nuclear Medicine 29:93, 2004). Electronic Signature Anthony Bernstein D.O. Electronically Signed: Anthony Bernstein DO at 19:12 EST Tel , Service support [phone], CC: Amber Galeano DO; Brandon Arguello Accounting Software Specialist: Signed Amber Waleska MARCOS Work Phone: Start: 10-06-2015 End: 10-07-2015 Abdomen/Pelvis WITH Contrast Comments: See Note; NOTES: [facility] Imaging Services [address] [place] [address] Verdana 4d Abdomen/Pelvis WITH Contrast MR#: [id number] Acct: [id number] Name: TANNER PORTER Rep #: [id number] : 1955 M 60 From: Glynn Perry PCP: Amber Galeano DO Status: REG CLI Study: Abdomen/Pelvis WITH Contrast Date of Exam: 10/06/15 Exam# [id number] Ordering Dr: Brandon Arguello MD STUDY: CT ABDOMEN AND PELVIS WITH CONTRAST REASON FOR EXAM: Male, 60 years old. Rectal bleeding. Diverticulitis. Newly diagnosed colon cancer. RADIATION DOSAGE (If Supplied By Facility): CTDIvol = ( 26.23 ) mGy, DLP = ( 4238.85 ) mGycm TECHNIQUE: Transaxial images were obtained from the dome of the diaphragm to the symphysis pubis with oral contrast. 100CC ml of Isovue 300 contrast was administered. Sagittal and coronal images were reconstructed. COMPARISON: July 07, 2015. FINDINGS: The visualized lung bases are unremarkable. The visualized portions of the heart are within normal limits. Normal liver. Normal gallbladder and extrahepatic biliary system. Normal spleen. Normal pancreas. Normal bilateral adrenal glands. Normal right kidney. Normal left kidney. Normal visualized stomach. Normal small intestine. Normal colon. Suture line junction of the sigmoid and distal descending colon. Colonic diverticuli are not appreciated. The appendix is well visualized and appears normal. Normal abdominal aorta. Normal inferior vena cava. Normal retroperitoneum. Normal urinary bladder. Prostate gland is enlarged. Small bilaterally inguinal hernias left larger than right, containing fat, unchanged.. Normal osseous structures. IMPRESSION: No acute findings in the abdomen or pelvis. Postoperative changes compatible with short segment colonic resection, left lower quadrant, related to sigmoid diverticulitis. No colonic wall thickening. Normal appendix. Electronically Signed: Glynn Perry MD at 5:53 EST , Service support [phone], CC: Amber Galeano DO; Brandon Arguello Accounting Software Specialist: Signed Amber Galeano DO Work Phone: Start: 10-06-2015 End: 10-07-2015 Chest WITH Contrast Comments: See Note; NOTES: [facility] Imaging Services [address] [place] [address] Verdana 4d Chest WITH Contrast MR#: [id number] Acct: [id number] Name: PORTERFILIPETANNER Minna Rep #: [id number] : 1955 M 60 From: Manny Lomax MD PCP: Amber Galeano DO Status: REG CLI Study: Chest WITH Contrast Date of Exam: 10/06/15 Exam# [id number] Ordering Dr: Brandon Arguello MD STUDY: CT CHEST WITH CONTRAST REASON FOR EXAM: Male, 60 years old. New diagnosis of colon cancer. History of rectal bleeding. RADIATION DOSAGE (If Supplied By Facility): CTDIvol = ( 26.23 ) mGy, DLP = ( 4238.85 ) mGycm TECHNIQUE: Transaxial imaging was performed following intravenous administration of 100CC ml of Isovue 300 contrast material. Multiplanar coronal and sagittal images were reformatted. COMPARISON: None. FINDINGS: A left-sided portacatheter is seen. Bullous changes are seen in both upper lobes and with COPD. Minimal scarring along the anterior aspect of the left lower lobe. There is no demonstrated pleural abnormality. Coronary artery calcification. There are multiple small lymph nodes within the mediastinum, which are normal in size and morphology most compatible with reactive lymph hyperplasia. The largest measures 1.3 cm. Normal hilar regions. Normal enhanced pulmonary arteries. Normal aorta arch and descending thoracic aorta. There are degenerative changes of the thoracic spine. There is no demonstrated abnormality of the visualized upper abdomen. IMPRESSION: Mild scarring at the left lung base with bullous changes in the lung apices. Borderline adenopathy in the mediastinum. Electronically Signed: Manny Lomax MD at 14:27 EST Tel [phone], Service support [phone], CC: Amber Galeano DO; Brandon Arguello Accounting Software Specialist: Signed Amber Galeano DO Work Phone: Start: 09-03-2015 End: 09-03-2015 12 lead ECG Comments: See Note; NOTES: [facility] Cardiovascular Services [address] [place] [address] 12 Lead EKG 09/02/15 1411 MR#: [id number] Acct: [id number] Name: TANNER PORTER Rep #: [id number] : 1955 60 From: Tanner Hood MD Attending Dr: OUT OF TOWN DOCTOR Status: REG CLI Ordering Dr: KYLE LOPEZ Date: 09/02/15 Location: LAB Sex: M C Admitted: Test Reason : PRE OP Blood Pressure : / mmHG Vent. Rate : 063 BPM Atrial Rate : 063 BPM P-R Int : 166 ms QRS Dur : 086 ms QT Int : 380 ms P-R-T Axes : 049 054 047 degrees QTc Int : 388 ms Normal sinus rhythm Normal ECG Confirmed by TANNER HOOD ([id number]), fan mail editor ROBERT MONSIVAIS ([id number]) on 09/03/2015 10:06:12 AM Referred By: JESSICA Confirmed By:TANNER HOOD 09/03/15 1006 Date Tanner Hood MD CC: Amber Galeano DO Date Dictated: 09/02/15 141 Date Transcribed: 09/02/151410 Accounting Software Specialist: Signed Amber Galeano DO Work Phone: Start: 07-07-2015 End: 07-08-2015 Abdomen/Pelvis WITH Contrast Comments: See Note; NOTES: [facility] Imaging Services [address] [place], [place] [address] CAT Scan Report MR#: [id number] Acct: [id number] Name: TANNER PORTER Rep #: [id number] : 1955 M 60 From: Corrine Lan MD PCP: Amber Galeano DO Status: REG CLI Study: Abdomen/Pelvis WITH Contrast Date of Exam: 07/07/15 Exam# [id number] Ordering Dr: Yola Waite STUDY: CT ABDOMEN AND PELVIS WITH CONTRAST REASON FOR EXAM: Male, 60 years old. Lower and mid abdominal pain times months. Nausea, constant hang over feeling RADIATION DOSAGE (If Supplied By Facility): CTDIvol = ( 15.48 ) mGy, DLP = ( 1845.94 ) mGycm TECHNIQUE: Transaxial 3.75 mm enhanced and delayed images were obtained from the dome of the diaphragm to the symphysis pubis with oral contrast. 100 ml of Isovue 300 contrast was administered. Sagittal and coronal images were reconstructed. COMPARISON: Report only gallbladder ultrasound 07/05/2014 FINDINGS: The lungs are hyperaerated. The visualized portions of the heart are within normal limits. Normal liver. Normal gallbladder and extrahepatic biliary system. Normal spleen. Normal pancreas. Normal bilateral adrenal glands. Normal right kidney. Normal left kidney. There is a small hiatal hernia. Normal small intestine. There is diverticulosis, with thickening of the proximal sigmoid colon wall, and pericolonic inflammation changes consistent with acute diverticulitis. There are artery colonic lymph nodes. Image 85-93 series 1002, the largest measures 0.87 x 1.5 cm image 88 series 1002. The appendix is visualized and appears normal. Image 60-65 series 1002. Normal abdominal aorta. Normal inferior vena cava. Normal retroperitoneum. Normal urinary bladder. There are prostatic calcifications and prostate enlargement. There are bilateral small inguinal hernia containing adipose tissue. Normal osseous structures. IMPRESSION: 1. Proximal sigmoid diverticulitis is suspected over a short segment. The pericolonic lymphadenopathy is prominent for the mild inflammatory process, followup examination with colonoscopy is advised to exclude underlying neoplasm. 2. There is no appendicitis, ascites, abscess, collection, perforation or obstruction. 3. Nonacute findings of hiatal hernia, inguinal hernia, prostate calcification, prostate enlargement. Electronically Signed: Corrnie Lan MD at 6:28 EDT , Service support [phone], CC: Yola Waite; Amber Galeano DO Accounting Software Specialist: Signed Yola Waite Work Phone: Start: 09-26-2014 End: 09-27-2014 Nuclear Stress Test - Treadmil Comments: See Note; NOTES: [facility] Imaging Services [address] [place] [address] Nuclear Medicine Report MR#: [id number] Acct: [id number] Name: TANNER PORTER Rep #: [id number] : 1955 M 59 From: Avery Rogers MD PCP: Amber Galeano DO Status: [facility] Study: Nuclear Stress Test - Treadmil Date of Exam: 09/26/14 Exam# [id number] Ordering Dr: Yola Waite EXERCISE MYOCARDIAL PERFUSION STRESS TEST REASON FOR EVALUATION: This is a 59-year-old man with a history of chest pain. BASELINE INFORMATION: Resting EKG demonstrates a normal sinus rhythm with a rate of 66 beats per minute. Demonstrates a normal blood pressure with blood pressure of 124/80. STRESS TEST: The patient exercised according to the regular Tello protocol for a total duration of 8 minutes completing 2 minutes into stage 3 of the Tello protocol. The maximum heart rate attained was 157 beats per minute, which was 96% of maximum predicted heart rate. The maximum workload attained was 10.1 METS. At rest, there were no ST or T-wave changes noted to suggest ischemia. At peak exercise, upsloping ST changes were noted, which did not meet the criteria for ischemia. No clinical angina was noted. During recovery, at approximately 5 minutes into recovery, there was downsloping ST depression noted of approximately 1.7 mm in leads II, III, and aVF as well as [address] depression noted in V5 and V6. The above are suggestive, but not diagnostic, of ischemia. These changes returned back to baseline at approximately 12 minutes. The patient did complain of fatigue for which the test was terminated, but no obvious chest pain was noted. MYOCARDIAL PERFUSION PROTOCOL: 11.4 mCi of Sestamibi was injected at rest. The patient exercised according to the regular Tello protocol for 8 minutes attaining 96% of maximum predicted heart rate and a workload of 10.1 METS. At peak exercise, 34.8 mCi of Sestamibi was injected. Stress images were obtained. Stress and rest images were reconstructed and compared in the short axis, vertical long, and horizontal long axes. Gated images were also obtained. PERFUSION SPECT ANALYSIS: Review of the images demonstrate normal uptake of tracer noted in all areas of the myocardium on the stress and resting images to a similar extent. There is no no motion artifact noted and no previous infarct is present. GATED SPECT ANALYSIS: The gated ejection fraction is noted to be 71%. CONCLUSION 1. Exercise myocardial perfusion stress test with no EKG changes noted during exercise to suggest ischemia. 2. EKG changes in recovery suggest concern for possible ischemia. 3. Nuclear images, however, demonstrate a preserved ejection fraction and no obvious ischemia. 4. Preserved ejection fraction noted. 5. Excellent functional work capacity present. CC: Yola Waite; Amber Galeano DO Accounting Software Specialist: MONTELONGO Signed Yola Waite Work Phone: Start: 07-05-2014 End: 07-06-2014 Gallbladder Comments: See Note; NOTES: [facility] Imaging Services [address] [place] [address] Ultrasound Report MR#: [id number] Acct: [id number] Name: TANNER PORTER Rep #: [id number] : 1955 M 59 From: Carmel Monsivais MD PCP: Amber Galeano DO Status: REG CLI Study: Gallbladder Date of Exam: 07/05/14 Exam# [id number] Ordering Dr: Yola Waite STUDY: ABDOMINAL ULTRASOUND - RIGHT UPPER QUADRANT REASON FOR VISIT: Male, 59 years old. Nausea for months. TECHNIQUE: Ultrasound evaluation of the right upper quadrant was performed with real-time and static douglass-scale imaging. TECHNICAL QUALITY: Adequate. COMPARISON: None. FINDINGS: Liver: The liver measures 20.3 cm. There is a heterogeneous echogenicity of the liver. The bile ducts are within normal limits. There is hepatic color flow. The direction of portal flow is hepatopetal. There is no demonstrated mass lesion. Gallbladder: Normal distended gallbladder. The length of the gallbladder is 8.5 cm. The gallbladder wall measures 2 mm. There is a negative sonographic Pedraza's sign. There is no pericholecystic fluid. There are no gallstones. Common Bile Duct (C.B.D.): The common bile duct measures 2.3 mm. Pancreas: Normal size of the head, body and tail of the pancreas. The pancreas is very echogenic, suggesting fatty infiltration. There is no demonstrated pancreatic mass or cyst. Right Kidney: Normal size of the right kidney. The right kidney measures 10.8 x 5.3 x 4.8 cm. Normal renal cortex. The right cortex measures 1.7 cm. There is no demonstrated renal mass or cyst. There is no right hydronephrosis. IMPRESSION: 1. Mild enlargement of the liver with mild fatty infiltration. 2. Distended gallbladder versus gallbladder hydrops. 3. Fatty infiltration of the pancreas. Electronically Signed: Carmel Monsivais MD at 14:38 EDT , Service support [phone], CC: Yola Waite; Amber Galeano DO Accounting Software Specialist: Signed Yola Waite Work Phone: Start: 05-21-2014 End: 05-21-2014 *CMP Complete Metabolic Panel Marlee Pina MD Plan of Treatment Date Care Activity Detail Author Start: 2032 RSV Vaccine (1 - 1-dose 75+ series) RSV Vaccine (1 - 1-dose 75+ series) [facility] Start: 12-18-2027 Diabetes Screening Diabetes Screening [facility] Start: 11-11-2025 End: 11-11-2025 Patient encounter procedure 11/11/2025 11:30 AM EST Office Visit Urology [address] [place] [address] Katerine Gamboa PA-C [address] [place] [address] 3 MTH F/U Urology Comment on above: 3 MTH F/U Start: 07-28-2025 Influenza vaccination Influenza Vaccine (#1) [facility] Start: 04-20-2025 [facility] Start: 04-20-2025 End: 04-20-2025 [facility] Start: 02-27-2025 [facility] Start: 02-17-2025 [facility] Start: 02-17-2025 [facility] Start: 01-08-2025 [facility] Start: 01-07-2025 End: 01-07-2025 Patient encounter procedure 01/07/2025 1:45 PM EST Office Visit [facility] [address] [phone] Anders Robertson MD [address] [place] [address] [facility] [place] Start: 01-03-2025 End: 01-03-2025 Patient encounter procedure 01/03/2025 11:00 AM EST Office Visit [facility] [address] [phone] Anders Robertson MD [address] [place] [address] [facility] [place] Start: 01-01-2025 End: 01-01-2025 Patient encounter procedure 01/01/2025 3:45 PM EST Appointment [facility] [address] [place] [address] Edna Villasenor, ONLINE MARKETING ANALYST - DIRECTOR OF USER EXPERIENCE [address] [place] [address] [facility] [address] Start: 01-01-2025 End: 12-18-2025 CT Head WO contrast CT head wo IV contrast Imaging Routine Subdural hematoma (HCC) Expected: 01/01/2025, Expires: 12/18/2025 [facility] Work Phone: Comment on above: Expected: 01/01/2025, Expires: Start: 12-26-2024 Prostate specific antigen measurement Prostate Cancer Screening Discussion [facility] Start: 12-17-2024 [facility] Start: 12-02-2024 [facility] Start: 11-27-2024 Advance Directive Discussion Advance Directive Discussion [facility] Start: 07-28-2024 COVID-19 Vaccine ( season) COVID-19 Vaccine () [facility] Start: 05-24-2024 End: 05-24-2024 ambulatory 05/24/2024 6:00 PM EDT Procedure [facility] [address] [place] [address] [facility] Comment on above: [facility] Start: 05-23-2024 End: 05-23-2024 ambulatory 05/23/2024 6:00 PM EDT Procedure [facility] [address] [place] [address] [facility] Comment on above: [facility] Start: 05-22-2024 End: 05-22-2024 ambulatory 05/22/2024 6:00 PM EDT Procedure [facility] [address] [place] [address] [facility] Comment on above: [facility] Start: 05-21-2024 End: 05-21-2024 ambulatory 05/21/2024 6:00 PM EDT Procedure [facility] [address] [place] [address] [facility] Comment on above: [facility] Start: 05-20-2024 End: 05-20-2024 ambulatory 05/20/2024 6:00 PM EDT Procedure [facility] [address] [place] [address] [facility] Comment on above: [facility] Start: 05-17-2024 End: 05-17-2024 ambulatory 05/17/2024 6:00 PM EDT Procedure [facility] [address] [place] [address] [facility] Comment on above: [facility] Start: 05-16-2024 End: 05-16-2024 ambulatory 05/16/2024 6:00 PM EDT Procedure [facility] [address] [place] [address] [facility] Comment on above: [facility] Start: 05-15-2024 End: 05-15-2024 ambulatory 05/15/2024 6:00 PM EDT Procedure [facility] [address] [place] [address] [facility] Comment on above: [facility] Start: 05-14-2024 End: 05-14-2024 ambulatory 05/14/2024 6:00 PM EDT Procedure [facility] [address] [place] [address] [facility] Comment on above: [facility] Start: 05-13-2024 End: 05-13-2024 ambulatory 05/13/2024 6:00 PM EDT Procedure [facility] [address] [place] [address] [facility] Comment on above: [facility] Start: 05-10-2024 End: 05-10-2024 ambulatory 05/10/2024 6:00 PM EDT Procedure [facility] [address] [place] [address] [facility] Comment on above: [facility] Start: 05-09-2024 End: 05-09-2024 ambulatory 05/09/2024 6:00 PM EDT Procedure [facility] [address] [place] [address] [facility] Comment on above: [facility] Start: 05-08-2024 End: 05-08-2024 ambulatory 05/08/2024 6:00 PM EDT Procedure [facility] [address] [place] [address] [facility] Comment on above: [facility] Start: 05-07-2024 End: 05-07-2024 ambulatory 05/07/2024 6:00 PM EDT Procedure [facility] [address] [place] [address] [facility] Comment on above: [facility] Start: 05-06-2024 End: 05-06-2024 ambulatory 05/06/2024 6:00 PM EDT Procedure [facility] [address] [place] [address] [facility] Comment on above: [facility] Start: 05-03-2024 End: 05-03-2024 ambulatory 05/03/2024 6:00 PM EDT Procedure [facility] [address] [place] [address] [facility] Comment on above: [facility] Start: 05-02-2024 End: 05-02-2024 ambulatory 05/02/2024 6:00 PM EDT Procedure [facility] [address] [place] [address] [facility] Comment on above: [facility] Start: 05-01-2024 End: 05-01-2024 ambulatory 05/01/2024 6:00 PM EDT Procedure [facility] [address] [place] [address] [facility] Comment on above: [facility] Start: 04-30-2024 End: 04-30-2024 ambulatory 04/30/2024 6:00 PM EDT Procedure [facility] [address] [place] [address] [facility] Comment on above: [facility] Start: 04-29-2024 End: 04-29-2024 ambulatory 04/29/2024 6:00 PM EDT Procedure [facility] [address] [place] [address] [facility] Comment on above: [facility] Start: 04-26-2024 End: 04-26-2024 ambulatory 04/26/2024 6:00 PM EDT Procedure [facility] [address] [place] [address] [facility] Comment on above: [facility] Start: 04-25-2024 End: 04-25-2024 ambulatory 04/25/2024 6:00 PM EDT Procedure [facility] [address] [place] [address] [facility] Comment on above: Hyper[facility] Therapy Start: 04-24-2024 End: 04-24-2024 ambulatory 04/24/2024 6:00 PM EDT Procedure [facility] [address] [place] [address] Hyperbaric Therapy [facility] Comment on above: Hyperbaric Therapy Start: 04-23-2024 End: 04-23-2024 ambulatory 04/23/2024 6:00 PM EDT Procedure [facility] [address] [place] [address] Hyperbaric Therapy [facility] Comment on above: Hyperbaric Therapy Start: 04-19-2024 End: 04-19-2024 ambulatory 04/19/2024 6:00 PM EDT Procedure [facility] [address] [place] [address] Hyperbaric Therapy [facility] Comment on above: Hyperbaric Therapy Start: 04-18-2024 End: 04-18-2024 ambulatory 04/18/2024 6:00 PM EDT Procedure [facility] [address] [place] [address] Hyperbaric Therapy [facility] Comment on above: Hyperbaric Therapy Start: 04-17-2024 End: 04-17-2024 ambulatory 04/17/2024 6:00 PM EDT Procedure [facility] [address] [place] [address] Hyperbaric Therapy [facility] Comment on above: Hyperbaric Therapy Start: 04-16-2024 End: 04-16-2024 ambulatory 04/16/2024 6:00 PM EDT Procedure [facility] [address] [place] [address] Hyperbaric Therapy [facility] Comment on above: Hyperbaric Therapy Start: 04-15-2024 End: 04-15-2024 ambulatory 04/15/2024 6:00 PM EDT Procedure [facility] [address] [place] [address] Hyperbaric Therapy [facility] Comment on above: Hyperbaric Therapy Start: 04-12-2024 End: 04-12-2024 ambulatory 04/12/2024 6:00 PM EDT Procedure [facility] [address] [place] [address] Hyperbaric Therapy [facility] Comment on above: Hyperbaric Therapy Start: 04-11-2024 End: 04-11-2024 ambulatory 04/11/2024 6:00 PM EDT Procedure [facility] [address] [place] [address] Hyperbaric Therapy [facility] Comment on above: [facility] Therapy Start: 04-10-2024 End: 04-10-2024 ambulatory 04/10/2024 6:00 PM EDT Procedure [facility] [address] [place] [address] Hyper[facility] Therapy [facility] Comment on above: Hyperbaric Therapy Start: 04-09-2024 End: 04-09-2024 ambulatory 04/09/2024 6:00 PM EDT Procedure [facility] [address] [place] [address] Hyperbaric Therapy [facility] Comment on above: Hyperbaric Therapy Start: 04-08-2024 End: 04-08-2024 ambulatory 04/08/2024 6:00 PM EDT Procedure [facility] [address] [place] [address] Hyperbaric Therapy [facility] Comment on above: Hyper[facility]ic Therapy Start: 04-07-2024 [facility] Start: 04-05-2024 End: 04-05-2024 ambulatory 04/05/2024 6:00 PM EDT Procedure [facility] [address] [place] [address] Hyperbar[facility] Therapy [facility] Comment on above: Hyperbaric Therapy Start: 04-04-2024 End: 04-04-2024 ambulatory 04/04/2024 6:00 PM EDT Procedure [facility] [address] [place] [address] Hyper[facility] Therapy [facility] Comment on above: Hyperbaric Therapy Start: 04-03-2024 End: 04-03-2024 ambulatory 04/03/2024 6:00 PM EDT Procedure [facility] [address] [place] [address] [facility] Therapy [facility] Comment on above: [facility]ic Therapy Start: 04-02-2024 End: 04-02-2024 ambulatory 04/02/2024 6:00 PM EDT Procedure [facility] [address] [place] [address] [facility] Therapy [facility] Comment on above: [facility] Therapy Start: 04-01-2024 End: 04-01-2024 ambulatory 04/01/2024 6:00 PM EDT Procedure [facility] [address] [place] [address] [facility] Therapy [facility] Comment on above: [facility] Start: 03-29-2024 End: 03-29-2024 ambulatory 03/29/2024 6:00 PM EDT Procedure [facility] [address] [place] [address] [facility] Therapy [facility] Comment on above: [facility] Therapy Start: 03-28-2024 End: 03-28-2024 ambulatory 03/28/2024 6:00 PM EDT Procedure [facility] [address] [place] [address] [facility] Comment on above: [facility] Start: 03-27-2024 End: 03-27-2024 ambulatory 03/27/2024 6:00 PM EDT Procedure [facility] [address] [place] [address] [facility] Comment on above: [facility] Start: 11-27-2023 Advance Directive Discussion Advance Directive Discussion [facility] Start: 11-27-2023 Behavioral Health Screening Behavioral Health Screening [facility] Start: 11-27-2023 Depression Assessment Depression Assessment [facility] Start: 09-04-2023 [facility] Start: 07-28-2023 Covid-19 Vaccine () Covid-19 Vaccine () [facility] Start: 09-09-2022 Patient discharge [facility] Work Phone: Start: 2022 Pneumococcal Vaccine: 65+ (1 of 1 - PCV) Pneumococcal Vaccine: 65+ (1 of 1 - PCV) [facility] Start: 10-25-2021 Diabetes Screening Diabetes Screening [facility] Start: 02-19-2021 Shingrix Vaccine (2 of 2) Shingrix Vaccine (2 of 2) [facility] Start: 02-19-2021 Zoster Vaccines (2 of 2) Zoster Vaccines (2 of 2) [facility] Start: 02-25-2018 Medicare Annual Wellness Visit Medicare Annual Wellness Visit [facility] Start: 08-18-2017 End: 08-18-2017 Appointment Appointment [facility] Work Phone: Start: 08-07-2017 End: 08-07-2017 Diagnostic colonoscopy Colonoscopy [facility] Work Phone: Start: 08-02-2017 End: 08-02-2017 Appointment Appointment [facility] Work Phone: Start: 07-18-2017 Screening for malignant neoplasm of colon [facility] Start: 2017 RSV Immunization for Adults (1 - Risk 60-74 years 1-dose series) RSV Immunization for Adults (1 - Risk 60-74 years 1-dose series) [facility] Start: 2017 RSV Vaccine (1 - 1-dose 60+ series) RSV Vaccine (1 - 1-dose 60+ series) [facility] Start: 04-10-2017 End: 12-26-2016 *CBC w/Diff - oncology ONLY *CBC w/Diff - oncology ONLY [facility] [employer] Work Phone: Start: 04-10-2017 End: 12-26-2016 *CMP Complete Metabolic Panel *CMP Complete Metabolic Panel [facility] [facility] Work Phone: Start: 04-10-2017 End: 12-26-2016 Carcinoembryonic antigen *CEA (Carcinoembryonic Ag) [facility] Work Phone: Start: 12-26-2016 End: 12-26-2016 Office/outpatient visit, est, level 4 24077 Ofc Vst, Est Level IV [facility] [employer] Work Phone: Start: 12-19-2016 End: 12-20-2016 *CBC w/Diff - oncology ONLY *CBC w/Diff - oncology ONLY [facility] Work Phone: Start: 12-19-2016 End: 12-19-2016 *CMP Complete Metabolic Panel *CMP Complete Metabolic Panel [facility] Work Phone: Start: 12-19-2016 End: 12-20-2016 Carcinoembryonic antigen *CEA (Carcinoembryonic Ag) [facility] [employer] Work Phone: Start: 12-19-2016 End: 12-19-2016 Lactate dehydrogenase (LDH) *LDH -LDH (Lactate Dehydrogenase) [facility] [facility] Work Phone: Start: 12-19-2016 End: 12-19-2016 Urate *Uric Acid Blood [facility] Work Phone: Start: 09-26-2016 End: 09-27-2016 *CBC w/Diff - oncology ONLY *CBC w/Diff - oncology ONLY [facility] Work Phone: Start: 09-26-2016 End: 09-27-2016 *CMP Complete Metabolic Panel *CMP Complete Metabolic Panel [facility] Work Phone: Start: 09-26-2016 End: 09-27-2016 Carcinoembryonic antigen *CEA (Carcinoembryonic Ag) [facility] Work Phone: Start: 09-26-2016 End: 09-27-2016 Lactate dehydrogenase (LDH) *LDH -LDH (Lactate Dehydrogenase) [facility] Work Phone: Start: 09-26-2016 End: 09-27-2016 Urate *Uric Acid Blood [facility] Work Phone: Start: 06-27-2016 End: 06-28-2016 Surgery Referral Surgery Referral Wilfrido Pate MD, [facility], [address] [place] [address], [address], [place], [address] [facility] Work Phone: Start: 06-20-2016 End: 04-18-2016 *CBC with Differential *CBC with Differential [facility] Work Phone: Start: 06-20-2016 End: 04-18-2016 *CMP Complete Metabolic Panel *CMP Complete Metabolic Panel [facility] Work Phone: Start: 06-20-2016 End: 04-18-2016 Carcinoembryonic antigen *CEA (Carcinoembryonic Ag) [facility] Work Phone: Start: 06-20-2016 End: 04-18-2016 Lactate dehydrogenase (LDH) *LDH -LDH (Lactate Dehydrogenase) [facility] Work Phone: Start: 06-20-2016 End: 04-18-2016 Urate *Uric Acid Blood [facility] Work Phone: Start: 04-18-2016 End: 04-04-2016 *CBC with Differential *CBC with Differential [facility] Work Phone: Start: 04-18-2016 End: 04-19-2016 *CMP Complete Metabolic Panel *CMP Complete Metabolic Panel [facility] Work Phone: Start: 04-18-2016 End: 04-20-2016 Carcinoembryonic antigen *CEA (Carcinoembryonic Ag) [facility] Work Phone: Start: 04-18-2016 End: 04-19-2016 Lactate dehydrogenase (LDH) *LDH -LDH (Lactate Dehydrogenase) [facility] Work Phone: Start: 04-18-2016 End: 04-19-2016 Urate *Uric Acid Blood [facility] Work Phone: Start: 04-04-2016 End: 03-21-2016 *CBC with Differential *CBC with Differential [facility] Work Phone: Start: 04-04-2016 End: 04-04-2016 *CMP Complete Metabolic Panel *CMP Complete Metabolic Panel [facility] Work Phone: Start: 04-04-2016 End: 04-04-2016 Lactate dehydrogenase (LDH) *LDH -LDH (Lactate Dehydrogenase) [facility] Work Phone: Start: 04-04-2016 End: 04-04-2016 Urate *Uric Acid Blood [facility] Work Phone: Start: 03-28-2016 End: 03-21-2016 *CBC with Differential *CBC with Differential [facility] Work Phone: Start: 03-28-2016 End: 03-28-2016 *CMP Complete Metabolic Panel *CMP Complete Metabolic Panel [facility] Work Phone: Start: 03-28-2016 End: 03-28-2016 Lactate dehydrogenase (LDH) *LDH -LDH (Lactate Dehydrogenase) [facility] Work Phone: Start: 03-28-2016 End: 03-28-2016 Urate *Uric Acid Blood [facility] Work Phone: Start: 03-21-2016 End: 03-14-2016 *CBC with Differential *CBC with Differential [facility] Work Phone: Start: 03-15-2016 End: 03-14-2016 *CBC with Differential *CBC with Differential [facility] Work Phone: Start: 03-14-2016 End: 02-29-2016 *CBC with Differential *CBC with Differential [facility] Work Phone: Start: 03-14-2016 End: 03-14-2016 *CMP Complete Metabolic Panel *CMP Complete Metabolic Panel [facility] Work Phone: Start: 03-07-2016 End: 02-29-2016 *CBC with Differential *CBC with Differential [facility] Work Phone: Start: 02-29-2016 End: 02-24-2016 *CBC with Differential *CBC with Differential [facility] Work Phone: Start: 02-24-2016 End: 02-09-2016 *CBC with Differential *CBC with Differential [facility] Work Phone: Start: 02-24-2016 End: 02-24-2016 *CMP Complete Metabolic Panel *CMP Complete Metabolic Panel [facility] Work Phone: Start: 02-24-2016 End: 02-24-2016 Magnesium *Magnesium [facility] Work Phone: Start: 02-17-2016 End: 02-09-2016 *CBC with Differential *CBC with Differential [facility] Work Phone: Start: 02-17-2016 End: 02-17-2016 *CMP Complete Metabolic Panel *CMP Complete Metabolic Panel [facility] Work Phone: Start: 02-10-2016 End: 02-09-2016 *CBC with Differential *CBC with Differential [facility] Work Phone: Start: 02-09-2016 End: 01-25-2016 *CBC with Differential *CBC with Differential [facility] Work Phone: Start: 02-09-2016 End: 02-02-2016 *CMP Complete Metabolic Panel *CMP Complete Metabolic Panel [facility] Work Phone: Start: 02-09-2016 End: 02-02-2016 Lactate dehydrogenase (LDH) *LDH -LDH (Lactate Dehydrogenase) [facility] Work Phone: Start: 02-09-2016 End: 02-02-2016 Urate *Uric Acid Blood [facility] Work Phone: Start: 02-02-2016 End: 01-25-2016 *CBC with Differential *CBC with Differential [facility] Work Phone: Start: 02-02-2016 End: 02-09-2016 *CMP Complete Metabolic Panel *CMP Complete Metabolic Panel [facility] Work Phone: Start: 02-02-2016 End: 02-09-2016 Lactate dehydrogenase (LDH) *LDH -LDH (Lactate Dehydrogenase) [facility] Work Phone: Start: 02-02-2016 End: 02-09-2016 Urate *Uric Acid Blood [facility] Work Phone: Start: 01-26-2016 End: 01-25-2016 *CBC with Differential *CBC with Differential [facility] Work Phone: Start: 01-26-2016 End: 01-26-2016 *CMP Complete Metabolic Panel *CMP Complete Metabolic Panel [facility] Work Phone: Start: 01-26-2016 End: 01-26-2016 Lactate dehydrogenase (LDH) *LDH -LDH (Lactate Dehydrogenase) [facility] Work Phone: Start: 01-25-2016 End: 01-11-2016 *CBC with Differential *CBC with Differential [facility] Work Phone: Start: 01-18-2016 End: 01-11-2016 *CBC with Differential *CBC with Differential [facility] Work Phone: Start: 01-18-2016 End: 01-19-2016 *CMP Complete Metabolic Panel *CMP Complete Metabolic Panel [facility] Work Phone: Start: 01-18-2016 End: 01-19-2016 Lactate dehydrogenase (LDH) *LDH -LDH (Lactate Dehydrogenase) [facility] Work Phone: Start: 01-18-2016 End: 01-19-2016 Urate *Uric Acid Blood [facility] Work Phone: Start: 01-11-2016 End: 12-28-2015 *CBC with Differential *CBC with Differential [facility] Work Phone: Start: 01-11-2016 End: 01-11-2016 *CMP Complete Metabolic Panel *CMP Complete Metabolic Panel [facility] Work Phone: Start: 01-11-2016 End: 01-11-2016 Lactate dehydrogenase (LDH) *LDH -LDH (Lactate Dehydrogenase) [facility] Work Phone: Start: 01-11-2016 End: 01-11-2016 Magnesium *Magnesium [facility] Work Phone: Start: 01-11-2016 End: 01-11-2016 Urate *Uric Acid Blood [facility] Work Phone: Start: 12-28-2015 End: 12-28-2015 *BMP *BMP [facility] Work Phone: Start: 12-28-2015 End: 12-14-2015 *CBC with Differential *CBC with Differential [facility] Work Phone: Start: 12-21-2015 End: 12-21-2015 *BMP *BMP [facility] Work Phone: Start: 12-21-2015 End: 12-28-2015 *CBC with Differential *CBC with Differential [facility] Work Phone: Start: 12-14-2015 End: 12-28-2015 *CBC with Differential *CBC with Differential [facility] Work Phone: Start: 12-14-2015 End: 12-14-2015 *CMP Complete Metabolic Panel *CMP Complete Metabolic Panel [facility] Work Phone: Start: 12-14-2015 End: 12-14-2015 Lactate dehydrogenase (LDH) *LDH -LDH (Lactate Dehydrogenase) [facility] Work Phone: Start: 12-14-2015 End: 12-14-2015 Magnesium *Magnesium [facility] Work Phone: Start: 12-14-2015 End: 12-14-2015 Urate *Uric Acid Blood [facility] Work Phone: Start: 12-07-2015 Provider Instructions for Treatment Reviewed [employer] Greet[employer] 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 Letter [facility] Work Phone: Start: 11-30-2015 End: 12-28-2015 *CBC with Differential *CBC with Differential [facility] Work Phone: Start: 11-30-2015 End: 12-01-2015 *CMP Complete Metabolic Panel *CMP Complete Metabolic Panel [facility] Work Phone: Start: 11-30-2015 End: 12-01-2015 Lactate dehydrogenase (LDH) *LDH -LDH (Lactate Dehydrogenase) [facility] Work Phone: Start: 11-30-2015 End: 12-01-2015 Magnesium *Magnesium [facility] Work Phone: Start: 11-30-2015 End: 12-28-2015 Phosphate *Phosphorus, inorganic [facility] Work Phone: Start: 11-30-2015 End: 12-01-2015 Urate *Uric Acid Blood [facility] Work Phone: Start: 11-16-2015 End: 12-28-2015 *CBC with Differential *CBC with Differential [facility] Work Phone: Start: 11-16-2015 End: 11-16-2015 *CMP Complete Metabolic Panel *CMP Complete Metabolic Panel [facility] Work Phone: Start: 11-16-2015 End: 11-16-2015 Lactate dehydrogenase (LDH) *LDH -LDH (Lactate Dehydrogenase) [facility] Work Phone: Start: 11-16-2015 End: 11-16-2015 Magnesium *Magnesium [facility] Work Phone: Start: 11-16-2015 End: 11-16-2015 Urate *Uric Acid Blood [facility] Work Phone: Start: 11-02-2015 End: 12-28-2015 *CBC with Differential *CBC with Differential [facility] Work Phone: Start: 11-02-2015 End: 11-02-2015 *CMP Complete Metabolic Panel *CMP Complete Metabolic Panel [facility] Work Phone: Start: 11-02-2015 End: 11-02-2015 Lactate dehydrogenase (LDH) *LDH -LDH (Lactate Dehydrogenase) [facility] Work Phone: Start: 11-02-2015 End: 11-02-2015 Urate *Uric Acid Blood [facility] Work Phone: Start: 10-26-2015 End: 12-28-2015 *CBC with Differential *CBC with Differential [facility] Work Phone: Start: 10-26-2015 End: 10-26-2015 *CMP Complete Metabolic Panel *CMP Complete Metabolic Panel [facility] Work Phone: Start: 10-26-2015 End: 10-26-2015 Lactate dehydrogenase (LDH) *LDH -LDH (Lactate Dehydrogenase) [facility] Work Phone: Start: 10-26-2015 End: 10-26-2015 Magnesium *Magnesium [facility] Work Phone: Start: 10-26-2015 End: 10-26-2015 Urate *Uric Acid Blood [facility] Work Phone: Start: 10-19-2015 End: 12-28-2015 *CBC with Differential *CBC with Differential [facility] Work Phone: Start: 10-19-2015 End: 10-19-2015 *CMP Complete Metabolic Panel *CMP Complete Metabolic Panel [facility] Work Phone: Start: 10-19-2015 End: 10-19-2015 Lactate dehydrogenase (LDH) *LDH -LDH (Lactate Dehydrogenase) [facility] Work Phone: Start: 10-19-2015 End: 10-19-2015 Magnesium *Magnesium [facility] Work Phone: Start: 10-19-2015 End: 10-19-2015 Urate *Uric Acid Blood [facility] Work Phone: Start: 07-08-2015 Patient Education Diverticulitis *: abdominal pain [facility]; [facility] Work Phone: Start: 07-08-2015 Provider Instructions for Treatment Follow up if no improvement or if symptoms worsen [facility] Work Phone: Start: 2015 Provider Instructions for Treatment Follow up in 1 week [facility]; [facility] Work Phone: Start: 2015 Blood count complete auto&auto difrntl wbc CBC, Platelets & Auto Diff (55005) [facility]; [facility] Work Phone: Start: 2015 Basic metabolic panel calcium total Metabolic Panel, Basic (52131) [facility]; [facility] Work Phone: Start: 2015 Assay of testosterone free TESTOSTERONE FREE (12570) [facility]; [facility] Work Phone: Start: 2015 Assay of prostate specific antigen total PSA, TOTAL - DIAGNOSTIC (46343) [facility]; [facility] Work Phone: Start: 04-03-2015 Provider Instructions for Treatment Follow up if no improvement or if symptoms worsen [facility]; [facility] Work Phone: Start: 03-16-2015 Blood count manual cell count each CBC WITH MANUAL DIFF (38233) [facility]; [facility] Work Phone: Start: 03-16-2015 Hepatic function panel HEPATIC FUNCTION PANEL (64575) [facility]; [facility] Work Phone: Start: 03-16-2015 Assay of prostate specific antigen total PSA (PROSTATE SPECIFIC ANTIGEN) (68633) [facility]; [facility] Work Phone: Start: 03-16-2015 Assay of testosterone total TESTOSTERONE TOTAL ([id number]) [facility]; [facility] Work Phone: Start: 03-13-2015 Provider Instructions for Treatment Follow up in 2 weeks [facility]; [facility] Work Phone: Start: 03-02-2015 Provider Instructions for Treatment [facility]; [facility] Work Phone: Start: 02-18-2015 Provider Instructions for Treatment Follow up in 1 week [facility]; [facility] Work Phone: Start: 02-18-2015 Assay of urine sodium Sodium Spot Urine (33585) [facility]; [facility] Work Phone: Start: 02-18-2015 Urine albumin quantitative MICROALBUMIN: CREATININE RATIO (79406) AND (44375) [facility]; [facility] Work Phone: Start: 02-18-2015 Urinalysis qual/semiquant except immunoassays URINALYSIS (82596) [facility]; [facility] Work Phone: Start: 02-18-2015 Cyanocobalamin vitamin b-12 VITAMIN B12 AND FOLATES (20542) [facility]; [facility] Work Phone: Start: 02-18-2015 Assay of testosterone free TESTOSTERONE FREE (62973) [facility]; [facility] Work Phone: Start: 02-18-2015 Comprehensive metabolic panel Metabolic Panel, Comprehensive (54246) [facility]; [facility] Work Phone: Start: 02-18-2015 Assay of magnesium MAGNESIUM (91202) [facility]; [facility] Work Phone: Start: 02-18-2015 Assay of free thyroxine T4, FREE (THYROXINE) (95041) [facility]; [facility] Work Phone: Start: 02-18-2015 Assay of triiodothyronine t3 free T3, FREE (TRIDOTHYRONINE) (44833) [facility]; [facility] Work Phone: Start: 02-18-2015 25 hydroxy includes fractions if performed CALCIFEDIOL (38929) [facility]; [facility] Work Phone: Start: 02-18-2015 Blood count complete auto&auto difrntl wbc CBC, Platelets & Auto Diff (43872) [facility]; [facility] Work Phone: Start: 02-18-2015 Assay of thyroid stimulating hormone tsh TSH (77985) [facility]; [facility] Work Phone: Start: 10-27-2014 Provider Instructions for Treatment Follow up in 2 weeks wt KF [facility]; [facility] Work Phone: Start: 09-26-2014 Provider Instructions for Treatment Follow up if no improvement or if symptoms worsen [facility]; [facility] Work Phone: Start: 09-09-2014 Provider Instructions for Treatment Follow up in 6 weeks [facility]; [facility] Work Phone: Start: 08-26-2014 Provider Instructions for Treatment [facility]; [facility] Work Phone: Start: 08-12-2014 Provider Instructions for Treatment Follow up in 3 weeks [facility]; [facility] Work Phone: Start: 08-04-2014 25 hydroxy includes fractions if performed CALCIFEDIOL (43420) [facility]; [facility] Work Phone: Start: 08-04-2014 Assay of thyroid stimulating hormone tsh TSH (THYROID STIMULATING HORMONE) (82136) [facility]; [facility] Work Phone: Start: 08-04-2014 Assay of magnesium MAGNESIUM (49309) [facility]; [facility] Work Phone: Start: 08-04-2014 Blood count complete auto&auto difrntl wbc CBC, Platelets & Auto Diff (17467) [facility]; [facility] Work Phone: Start: 08-04-2014 Comprehensive metabolic panel Metabolic Panel, Comprehensive (35475) [facility]; [facility] Work Phone: Start: 08-04-2014 Procedure Education Eprescribed prescriptions (G8553) [facility]; [facility] Work Phone: Start: 08-04-2014 Provider Instructions for Treatment Follow up in 1 week [facility]; [facility] Work Phone: Start: 07-08-2014 Patient Education Nausea and Vomiting: bland foods [facility]; [facility] Work Phone: Start: 07-08-2014 Procedure Education Eprescribed prescriptions (G8553) [facility]; [facility] Work Phone: Start: 07-08-2014 Provider Instructions for Treatment Follow up after consult [facility]; [facility] Work Phone: Start: 07-01-2014 Patient Education Nausea and Vomiting: vomit [facility]; [facility] Work Phone: Start: 07-01-2014 Procedure Education Eprescribed prescriptions (G8553) [facility]; [facility] Work Phone: Start: 07-01-2014 Provider Instructions for Treatment [facility]; [facility] Work Phone: Start: 06-23-2014 Provider Instructions for Treatment Follow up on Monday next week [facility]; [facility] Work Phone: Start: 05-21-2014 End: 05-21-2014 *CMP Complete Metabolic Panel *CMP Complete Metabolic Panel [facility] [employer] Work Phone: Start: 05-21-2014 End: 05-21-2014 *MISC - Miscellaneous Lab Test #1 *MISC - Miscellaneous Lab Test #1 [facility] [employer] Work Phone: Start: 05-21-2014 End: 05-21-2014 Calcium *Calcium, Total [facility] [employer] Work Phone: Start: 04-28-2014 25 hydroxy includes fractions if performed CALCIFIDIOL (73218) VIT D 25 [facility]; [facility] Work Phone: Start: 04-28-2014 Assay of folic acid serum Folate (18786) [facility]; [facility] Work Phone: Start: 04-28-2014 Cyanocobalamin vitamin b-12 VITAMIN B-12 (CYANOCOBALAMIN) (91854) [facility]; [facility] Work Phone: Start: 04-28-2014 Assay of thyroid stimulating hormone tsh TSH (20478) [facility]; [facility] Work Phone: Start: 04-28-2014 Sedimentation rate rbc non-automated SED RATE ERYTHROCYTE (50109) [facility]; [facility] Work Phone: Start: 04-28-2014 Rheumatoid factor quantitative RHEUMATOID FACTOR-QUANT (36509) [facility]; [facility] Work Phone: Start: 04-28-2014 Comprehensive metabolic panel METABOLIC PANEL, COMPREHENSIVE (48324) [facility]; [facility] Work Phone: Start: 04-28-2014 C-reactive protein C-REACTIVE PROTEIN (48511) [facility]; [facility] Work Phone: Start: 04-28-2014 Blood count complete automated CBC (AUTO) (18507) [facility]; [facility] Work Phone: Start: 04-28-2014 Antinuclear antibodies evonne EVONNE (ANTINUCLEAR ANTIBODY) (87369) [facility]; [facility] Work Phone: Start: 04-28-2014 Antibody aníbal-patino eb virus early antigen ea EBV Panel (01673) [facility]; [facility] Work Phone: Start: 03-26-2014 Potassium serum plasma/whole blood POTASSIUM SERUM (11556) [facility]; [facility] Work Phone: Start: 03-26-2014 Assay of phosphorus inorganic PHOSPHORUS (46878) [facility]; [facility] Work Phone: Start: 03-26-2014 Assay of magnesium MAGNESIUM (09948) [facility]; [facility] Work Phone: Start: 03-12-2014 Assay of magnesium MAGNESIUM (76493) [facility]; [facility] Work Phone: Comment on above: stat Start: 03-12-2014 Potassium serum plasma/whole blood POTASSIUM SERUM (93999) [facility]; [facility] Work Phone: Comment on above: stat Start: 03-10-2014 Potassium serum plasma/whole blood POTASSIUM SERUM (48195) [facility]; [facility] Work Phone: Comment on above: repeat march 17, 2014 Start: 03-10-2014 Provider Instructions for Treatment Follow up in 10 days [facility]; [facility] Work Phone: Start: 03-03-2014 Provider Instructions for Treatment Follow up in 2 weeks [facility]; [facility] Work Phone: Start: 02-25-2014 Assay of phosphorus inorganic PHOSPHORUS (95471) [facility]; [facility] Work Phone: Start: 02-25-2014 Potassium serum plasma/whole blood POTASSIUM SERUM (56347) [facility]; [facility] Work Phone: Comment on above: repeat MondayMarch 03 in am Start: 02-25-2014 Provider Instructions for Treatment [facility]; [facility] Work Phone: Start: 02-25-2014 Potassium serum plasma/whole blood POTASSIUM SERUM (35076) [facility]; [facility] Work Phone: Start: 02-21-2014 Provider Instructions for Treatment Follow up in 1 week [facility]; [facility] Work Phone: Start: 02-21-2014 25 hydroxy includes fractions if performed CALCIFEDIOL (11314) [facility]; [facility] Work Phone: Comment on above: May 24 2014 Start: 02-17-2014 Potassium serum plasma/whole blood POTASSIUM SERUM (10585) [facility]; [facility] Work Phone: Start: 02-12-2014 Assay of magnesium MAGNESIUM (68009) [facility]; [facility] Work Phone: Start: 02-10-2014 Antibody borrelia burgdorferi lyme disease Lyme Disease Antibody W/ Reflex (31091) [facility]; [facility] Work Phone: Start: 02-10-2014 Assay of arsenic HEAVY METALS, URINE 7492 (02303) [facility]; [facility] Work Phone: Start: 02-10-2014 Heavy metal qualitative any analytes HEAVY METAL SCREEN (71908) [facility]; [facility] Work Phone: Start: 02-10-2014 Glucose quantitative blood xcpt reagent strip Glucose, PP/2 Hour (99175) [facility]; [facility] Work Phone: Start: 02-10-2014 Hepatic function panel HEPATIC FUNCTION PANEL (11162) [facility]; [facility] Work Phone: Start: 02-10-2014 25 hydroxy includes fractions if performed CALCIFEDIOL (73082) [facility]; [facility] Work Phone: Start: 02-10-2014 Blood count complete auto&auto difrntl wbc CBC, Platelets & Auto Diff (46730) [facility]; [facility] Work Phone: Start: 02-10-2014 Assay of thyroid stimulating hormone tsh TSH (65874) [facility]; [facility] Work Phone: Start: 02-10-2014 Lipid panel Lipid Panel (16013) [facility]; [facility] Work Phone: Start: 02-10-2014 Comprehensive metabolic panel Metabolic Panel, Comprehensive (20758) [facility]; [facility] Work Phone: Start: 02-10-2014 Assay of lead LEAD, BLOOD ADULT 16+YRS 7624 (29157) [facility]; [facility] Work Phone: Start: 02-10-2014 Provider Instructions for Treatment Follow up in 2 weeks [facility]; [facility] Work Phone: Start: 09-24-2013 Provider Instructions for Treatment Follow up if no improvement or if symptoms worsen [facility]; [facility] Work Phone: Start: 02-05-2013 Provider Instructions for Treatment Follow up in 3 months [facility]; [facility] Work Phone: Start: 11-05-2012 Provider Instructions for Treatment Follow up in 2 weeks [facility]; [facility] Work Phone: Start: 12-09-2011 Provider Instructions for Treatment [facility]; [facility] Work Phone: Start: 12-01-2011 Provider Instructions for Treatment [facility]; [facility] Work Phone: Start: 10-12-2011 Provider Instructions for Treatment Follow up in 2 weeks [facility]; [facility] Work Phone: Start: 08-12-2011 Provider Instructions for Treatment [facility]; [facility] Work Phone: Start: 07-29-2011 Provider Instructions for Treatment [facility]; [facility] Work Phone: Start: 07-29-2011 25 hydroxy includes fractions if performed CALCIFIDIOL (10190) VIT D 25 [facility]; [facility] Work Phone: Start: 07-29-2011 C-reactive protein C-REACTIVE PROTEIN (34801) [facility]; [facility] Work Phone: Start: 07-29-2011 Rheumatoid factor quantitative RHEUMATOID FACTOR-QUANT (38230) [facility]; [facility] Work Phone: Start: 07-29-2011 Sedimentation rate rbc non-automated SED RATE ERYTHROCYTE (29436) [facility]; [facility] Work Phone: Start: 07-29-2011 Antinuclear antibodies evonne EVONNE (ANTINUCLEAR ANTIBODY) (53309) [facility]; [facility] Work Phone: Start: 03-11-2011 Provider Instructions for Treatment FOLLOW UP IN 3 MONTHS [facility]; [facility] Work Phone: Start: 02-28-2011 Hepatic function panel HEPATIC FUNCTION PANEL (40087) [facility]; [facility] Work Phone: Start: 01-28-2011 Provider Instructions for Treatment FOLLOW UP IN 6 WEEKS [facility]; [facility] Work Phone: Start: 01-14-2011 Creatinine other source CREATININE, URINE (98446) [facility]; [facility] Work Phone: Start: 10-04-2010 Provider Instructions for Treatment [facility]; [facility] Work Phone: Start: 09-27-2010 Provider Instructions for Treatment [facility]; [facility] Work Phone: Start: 09-06-2010 Provider Instructions for Treatment FOLLOW UP IN 3 WEEKS [facility]; [facility] Work Phone: Start: 10-20-2009 Provider Instructions for Treatment [facility]; [facility] Work Phone: Start: 10-20-2009 Assay of prostate specific antigen total PSA (PROSTATE SPECIFIC ANTIGEN) (V76.44) [facility]; [facility] Work Phone: Start: 10-20-2009 Lipid panel LIPID PANEL (23710) [facility]; [facility] Work Phone: Start: 05-15-2009 Provider Instructions for Treatment *fatigue education [facility]; [facility] Work Phone: Start: 05-07-2009 Renal function panel Renal function Panel (91249) [facility]; [facility] Work Phone: Start: 04-16-2009 Provider Instructions for Treatment FOLLOW UP IN 3 WEEKS [facility]; [facility] Work Phone: Start: 02-16-2009 Provider Instructions for Treatment [facility]; [facility] Work Phone: Start: 02-16-2009 Lipid panel LIPID PANEL (99832) [facility]; [facility] Work Phone: Comment on above: do in 6 mo Start: 01-19-2009 Provider Instructions for Treatment [facility]; [facility] Work Phone: Start: 12-29-2008 Provider Instructions for Treatment [facility]; [facility] Work Phone: Start: 10-27-2008 Provider Instructions for Treatment [facility]; [facility] Work Phone: Start: 10-27-2008 Hepatic function panel HEPATIC FUNCTION PANEL (64783) [facility]; [facility] Work Phone: Comment on above: do in 2months Start: 08-05-2008 Provider Instructions for Treatment [facility]; [facility] Work Phone: Start: 08-05-2008 Assay of prostate specific antigen total PSA (PROSTATE SPECIFIC ANTIGEN) (V76.44) [facility]; [facility] Work Phone: Start: 08-05-2008 Urine albumin quantitative MICROALBUMIN: CREATININE RATIO (38542) AND (33630) [facility]; [facility] Work Phone: Start: 08-05-2008 Urnls dip stick/tablet rgnt auto w/o microscopy URINALYSIS W/O MICRO (72847) [facility]; [facility] Work Phone: Start: 08-05-2008 Comprehensive metabolic panel METABOLIC PANEL, COMPREHENSIVE (54684) [facility]; [facility] Work Phone: Start: 08-05-2008 Lipid panel LIPID PANEL (36042) [facility]; [facility] Work Phone: Start: 08-05-2008 Blood count manual cell count each CBC WITH MANUAL DIFF (74883) [facility]; [facility] Work Phone: Start: 04-28-2008 Lipid panel LIPID PANEL (90866) [facility]; [facility] Work Phone: Comment on above: do in 3 months Start: 04-28-2008 Hepatic function panel HEPATIC FUNCTION PANEL (70267) [facility]; [facility] Work Phone: Start: 04-28-2008 Provider Instructions for Treatment [facility]; [facility] Work Phone: Start: 10-05-2007 Provider Instructions for Treatment [facility]; [facility] Work Phone: Start: 10-05-2007 Lipid panel LIPID PANEL (04139) [facility]; [facility] Work Phone: Comment on above: in 4 mo-fasting 12 hr Start: 09-28-2007 Provider Instructions for Treatment [facility]; [facility] Work Phone: Start: 09-28-2007 Lipid panel LIPID PANEL (23614) [facility]; [facility] Work Phone: Comment on above: fasting 12 hr and do in 6 months Start: 09-10-2007 Provider Instructions for Treatment [facility]; [facility] Work Phone: Start: 09-10-2007 Assay of prostate specific antigen total PSA (PROSTATE SPECIFIC ANTIGEN) (50680) [facility]; [facility] Work Phone: Comment on above: only to do if its been greater than one yr Start: 09-10-2007 Urnls dip stick/tablet rgnt auto w/o microscopy URINALYSIS W/O MICRO (09682) [facility]; [facility] Work Phone: Start: 09-10-2007 Assay of thyroid stimulating hormone tsh TSH (48522) [facility]; [facility] Work Phone: Start: 09-10-2007 Urine albumin quantitative MICROALBUMIN URINE QUANT (80975) [facility]; [facility] Work Phone: Start: 09-10-2007 Comprehensive metabolic panel METABOLIC PANEL, COMPREHENSIVE (74666) [facility]; [facility] Work Phone: Start: 09-10-2007 Lipid panel LIPID PANEL (43373) [facility]; [facility] Work Phone: Start: 09-10-2007 Blood count manual cell count each CBC WITH MANUAL DIFF (47102) [facility]; [facility] Work Phone: Start: 2007 Pneumococcal Vaccine: 50+ (1 of 1 - PCV) Pneumococcal Vaccine: 50+ (1 of 1 - PCV) [facility] Start: 2002 Screening for malignant neoplasm of colon [facility] Start: 1992 Lipid panel Lipid Screening [facility] Start: 1976 DTaP/Tdap/Td Vaccines (1 - Tdap) DTaP/Tdap/Td Vaccines (1 - Tdap) [facility] Start: 1976 Hepatitis A Vaccines (1 of 2 - Risk 2-dose series) Hepatitis A Vaccines (1 of 2 - Risk 2-dose series) [facility] Start: 1976 Pneumococcal Vaccine: 50+ Years (1 of 2 - PCV) Pneumococcal Vaccine: 50+ Years (1 of 2 - PCV) [facility] Start: 1976 Urine microalbumin profile DTaP,Tdap,Td Vaccine (1 - Tdap) [facility] Start: 1975 Annual PCP Team Chronic Disease Visit Annual PCP Team Chronic Disease Visit [facility] Start: 1975 Anxiety Screening Anxiety Screening [facility] Start: 1975 BP Controlled (<130/80) BP Controlled (<130/80) [facility] Start: 1975 Depression Screening Depression Screening [facility] Start: 1975 Diabetes mellitus screening Diabetes Screening [facility] Start: 1975 Hepatitis C screening Hepatitis C Screening [facility] Start: 1969 Depression Monitoring Depression Monitoring [facility] Start: 1957 Abdominal aortic aneurysm screening Abdominal Aortic Aneurysm Screening [facility] Start: 1957 Lipid panel Lipid Panel [facility] Start: 1957 Medicare Annual Wellness (AWV) Medicare Annual Wellness (AWV) [facility] Start: 1957 Screening for malignant neoplasm of colon [facility] Start: 1957 Thyroid stimulating hormone measurement TSH Level [facility] Bacteria identified in Urine by Culture URINE CULTURE Microbiology Routine Urinary frequency 02/27/2024 2:[address] [facility] Work Phone: Patient Education [facility] Work Phone: Patient referral [facility] Work Phone: POST VOID RESIDUAL POST VOID RES IDUAL Procedures Routine Urinary frequency Urinary hesitancy Screening for genitourinary condition Ordered: 02/27/2024 [facility] Work Phone: Comment on above: Ordered: 02/27/2024 UA DIP, URINE (POC) UA DIP, URIN E (POC) Lab Routine Urinary frequency Ordered: 02/27/2024 [facility] Work Phone: Comment on above: Ordered: 02/27/2024 [facility] Work Phone: [facility] Work Phone: [facility]; [facility] Work Phone: [facility] Work Phone: [facility] Work Phone: [facility] Work Phone: [facility] Work Phone: [facility] Work Phone: [facility] Work Phone: [facility] Work Phone: [facility] Work Phone: [facility] Work Phone: [facility] Work Phone: [facility] Work Phone: [facility] Work Phone: [facility] Work Phone: [facility]; [facility] Work Phone: Immunizations Immunization Date Immunization Notes Care Provider [facility] 09-12-2024 influenza virus vaccine, unspecified formulation Katerine Gamboa PA-C Work Phone: [facility] 08-26-2016 Influenza virus vaccine [facility] 09-12-2014 Influenza virus vaccine [facility] 10-27-2008 influenza, seasonal, injectable Amber Waleska DO Work Phone: [facility]; [facility] Work Phone: 09-28-2007 influenza, seasonal, injectable Amber Waleska DO Work Phone: [facility]; [facility] Work Phone: Comment on above: given in left deltoi d, 0.5cc, lot#[id number], exp.6.08 [place] Payers Date Payer Category Payer Medicaid [id number] 2024 Self-pay [id number] 2018 Medicare 2018 Medicare [id number] 39a [id number] 2016 Unknown [id number] 1957 Unknown [id number] 2.16.8 [id number] Unknown Unknown [id number] 2.16.8 [id number] Unknown [id number] 2.16.8 [id number] Unknown [id number] 2.16.8 [id number] Unknown [id number] 2.16.8 [id number] Unknown [id number] 2.16.8 [id number] Unknown [id number] 2.16.8 [id number] Unknown [id number] 2.16.8 [id number] Unknown [id number] 2.16.8 [id number] Unknown [id number] 2.16.8 [id number] Unknown [id number] Unknown [id number] Unknown [id number] Unknown [id number] Social History Date Type Detail Facility Start: 01-31-2019 End: 03-26-2024 Exercise History Exercise History [facility]; [facility] Work Phone: Comment on above: Inactive Lives with spouse none Tobacco use: Tobacco use: [facility]; [facility] Work Phone: Start: 04-22-2020 End: 04-07-2024 Tobacco smoking status NHIS Unknown if ever smoked [facility] Start: 11-08-2016 Rare [facility] Start: 11-08-2016 None [facility] Start: 11-08-2016 Spouse/ Signif icant Other [facility] Start: 11-08-2016 Non-smoker [facility] Start: 1955 Sex Assigned At Male [facility] Start: 01-31-2019 End: 04-20-2025 Tobacco smoking status NHIS Ex-smoker [facility] History of tobacco use Current smoker [facility] History of tobacco use Cigarette Smoker [facility] Start: 01-31-2019 Tobacco use and exposure Smokeless tobacco non-user [facility] Start: 02-27-2024 End: 08-12-2025 Alcohol intake Ex-drinker (finding) [facility] Start: 02-27-2024 End: 03-26-2024 Tobacco use panel [facility] Start: 10-28-2012 National Score (1-100), lower number is lower risk Not on file [facility] Start: 02-23-2016 Tobacco Comment quit in 1999 [facility] Start: 1955 Sex Assigned At Not on file [facility] Tobacco smoking stat NHIS Never smoked tobacco [facility] Start: 12-17-2024 End: 01-07-2025 Alcoholic beverage intake Current non-drinker of alcohol (finding) [facility] [employer] Has the [employer], or [employer] threatened to shut off services in your home in past 12Mo No [facility] Are you now , , , , never or living with a partner? [facility] How often to you hav e a drink containing alcohol? Never [facility] Do you feel stress - tense, restless, nervous, or anxious, or unable to sleep at night because your mind is troubled all the time - these days [OSQ] Only a little [facility] (I/We) worried wheth er (my/our) food would run out before (I/we) got money to buy more. Never true [employer] [employer] Start: 06-27-2022 End: 02-27-2025 Sex Male (finding) [facility] Start: 12-17-2024 Sexual orientation Heterosexual (kamran burciaga) [facility] Goals Date Patient Goal Desired Activity /State Functional Status Date Assessment Result Facility 07-30-2014 Are you deaf, or do you have serious difficulty hearing No 07/30/2014 2:20 PM EDT Maria Ines Salter RN No [facility] 07-30-2014 Are you blind, or do you have serious difficulty seeing, even when wearing glasses No 07/30/2014 2:20 PM EDT Maria Ines Salter RN No [facility] 07-30-2014 Do you have serious difficulty walking or climbing stairs No 07/30/2014 2:20 PM EDT Maria Ines Salter RN No [facility] 07-30-2014 Do you have difficul ty dressing or bathing No 07/30/2014 2:20 PM EDT Maria Ines Salter RN No [facility] 07-30-2014 Because of a physica l, mental, or emotional condition, do you have difficulty doing errands alone such as visiting a physician's office or shopping No 07/30/2014 2:20 PM EDT Maria Ines Salter RN No [facility] Mental Status Date Assessment Result Facility 04-20-2025 Cognitive function Voice/Name [facility] Work Phone: 02-27-2025 Cognitive function Level Of Cons ciousness Awake;Alert;Appropriate;Fol lows Commands [facility] Work Phone: 02-17-2025 Cognitive function Level Of Cons ciousness Awake;Alert;Appropriate;Fol lows Commands [facility] Work Phone: 02-17-2025 Cognitive function Level Of Cons ciousness Awake;Alert;Appropriate;Fol lows Commands [facility] Work Phone: 12-17-2024 Cognitive function Level Of Cons ciousness Awake;Alert;Appropriate;Fol lows Commands [facility] Work Phone: 04-07-2024 Cognitive function Level Of Cons ciousness Awake;Alert;Appropriate [facility] Work Phone: 09-04-2023 Cognitive function Level Of Cons ciousness Awake;Alert;Appropriate;Fol lows Commands [facility] Work Phone: 09-09-2022 Cognitive function Voice/Name [facility] Work Phone: 07-30-2014 Because of a physica l, mental, or emotional condition, do you have serious difficulty concentrating, remembering, or making decisions No 07/30/2014 2:20 PM EDT Maria Ines Salter RN No [facility] Clinical Notes 02-27-2024 to 08-12-2025 Telephone Encounter - Sandra Medellin - 08/12/2025 9:07 AM EDTTelephone Encounter - Sandra Medellin - 08/12/2025 9:07 AM Nely Robertson MD - 01/07/2025 1:45 PM ESTDischarge Instructions Note Date & Type Note Facility 08-12-2025 Telephone encount er Note Patient's Marisol called in stating that Tanner needed an appointment today or to see if Katerine Gamboa would be able to prescribe Tanner something because he is struggling to urinate, especially at night. I was unable to reach nursing in urology so I went ahead and scheduled him with Katerine Gamboa today at 11:30 am, they confirmed this appointment time and location. Patient was last seen in 02/2024 with Katerine Holliday [facility] 08-12-2025 Miscellaneous Notes Formattin g of this note might be different from the original. Patient's Marisol called in stating that Tanner needed an appointment today or to see if Katerine Gamboa would be able to prescribe Tanner something because he is struggling to urinate, especially at night. I was unable to reach nursing in urology so I went ahead and scheduled him with Katerine Gamboa today at 11:30 am, they confirmed this appointment time and location. Patient was last seen in 02/2024 with Katerine Johnston Pss documented in this encounter [facility] 04-20-2025 Radiology Diagnostic study note [facility] Imaging Services [address] [place], [place] [address] Chest PA and Lateral MR#: [id number] Acct: [id number] Name: TANNER PORTER Rep #: [id number] : 1955 M 69 From: Saray Aldana MD PCP: Dr. Edwin Donald MD Status: PRE E R Study:Chest PA and Lateral Date of Exam: 04/20/25 Exam# [id number] Ordering Dr: Santos Montoya DO PROCEDURE: CHEST PA AND LATERAL 04/20/2025 REASON FOR EXAM: CHEST PAIN TECHNIQUE: Frontal and lateral views of the chest. COMPARISON: 02/17/2025 FINDINGS: No focal consolidation. No pleural effusion or pneumothorax. Cardiac silhouette is unremarkable. No acute fractures. RAD/Chest PA and Lateral IMPRESSION: No focal consolidations. Reading Location: [facility] CC: Dr. Edwin Donald MD; Dr. Santos Montoya DO ~ Accounting Software Specialist: Signed [facility] 04-20-2025 Radiology Diagnostic study note [facility] Imaging Services [address], [place] [address] Brain/Head without Contrast MR#: [id number] Acct: [id number] Name: TANNER PORTER Rep #: [id number] : 1955 M 69 From: Saray Aldana MD PCP: Dr. Edwin Donald MD Status: PRE E R Study:Brain/Head without Contrast Date of Exa m: 04/20/25 Exam# [id number] Ordering Dr: Sri Soler DO PROCEDURE: BRAIN/HEAD WITHOUT CONTRAST 04/20/2025 REASON FOR EXAM: PREVIOUS BLEED TECHNIQUE: Head CT without intravenous contrast. Coronal and Sagittal reconstruction serieswere provided. One or more dose reduction techniques were used (e.g., Automated exposure control, adjustment of the mA and/or kV according to patient size, use of iterative reconstruction technique. RADIATION DOSE SUMMARY: DLP: 864 mGycm COMPARISON: CT head from 02/17/2025 and from 12/17/2024 FINDINGS: There is no acute infarct, intracranial hemorrhage, or mass effect. There is no hydrocephalus or significant midline shift. No acute, depressed calvarial fractures. No large scalp hematomas. Chronic left nasal bridge deformity. CT/Brain/Head without Contrast IMPRESSION: No acute intracranial hemorrhage. No acute intracranial process. Reading Location: [id number] CC: Dr. Jami Soler DO; Dr. Edwin Donald MD ~ Accounting Software Specialist: Signed [facility] 02-18-2025 Discharge summary [facility] 02-17-2025 Radiology Diagnostic study note [facility] Imaging Services [address] [place] [address] Brain/Head without Contrast MR#: [id number] Acct: [id number] Name: TANNER PORTER Rep #: [id number] : 1955 M 69 From: Kimberly Tse MD PCP: Dr. Edwin Donald MD Status: REG E R Study:Brain/Head without Contrast Date of Exa m: 02/17/25 Exam# [id number] Ordering Dr: Riley Wallace MD PROCEDURE: BRAIN/HEAD WITHOUT CONTRAST 02/17/2025 REASON FOR EXAM: HEAD TRAUMA, HEADACHE AND PRIOR HISTORY BLEED TECHNIQUE: CT images of the brain were acquired without intravenous contrast. Multiplanar reformats were acquired. COMPARISON: CT brain 01/08/2025 and 12/17/2024 FINDINGS: * ACUTE: No acute infarct or hemorrhage. No mass effect or herniation. * BRAIN PARENCHYMA: Signal intensities are within normal limits for age. * VENTRICLES/EXTRA-AXIAL SPACES: No hydrocephalus or extra-axial fluid collections. * EXTRACRANIAL STRUCTURES: Visualized osseous structures are normal. Soft tissues are normal. CT/Brain/Head without Contrast IMPRESSION: No acute intracranial abnormality. Reading Location: [facility] CC: Dr. Edwin Donald MD; Dr. Luke Wallace MD ~ Accounting Software Specialist: Signed [facility] 02-17-2025 Radiology Diagnostic study note [facility] Imaging Services [address] [place] [address] Chest 1 View (Portable) MR#: [id number] Acct: [id number] Name: TANNER PORTER Rep #: [id number] : 1955 M 69 From: Kristina Montoya MD PCP: Dr. Edwin Donald MD Status: REG E R Study:Chest 1 View (Portable) Date of Exam: 02/17/25 Exam# [id number] Ordering Dr: Willy Rizzo DO EXAM: XR Chest, 1 View CLINICAL INDICATION: HTN TECHNIQUE: Frontal view of the chest. COMPARISON: No relevant prior studies available. FINDINGS: LUNGS AND PLEURAL SPACES: Unremarkable. No consolidation. No pneumothorax. HEART: Unremarkable. No cardiomegaly. MEDIASTINUM: Unremarkable. Normal mediastinal contour. BONES/JOINTS: Unremarkable. No acute fracture. RAD/Chest 1 View (Portable) IMPRESSION: No acute cardiopulmonary process. Reading Location: [facility] CC: Dr. Willy Esteban DO; Dr. Edwin Donald MD ~ Accounting Software Specialist: Signed [facility] 01-07-2025 History of Present illness Narrative NEUROSURGERY and SPINE FOLLOW-UP NOTE Patient Name: Tanner Porter Patient : 1955 PCP: YASH DONALD MD History of Present Illness: 69 y.o. presents for hospital follow up. He has a history of falling on the ice on 12/14/24. He was not on anticoagulation. He was found to have a small acute left parafalcine subdural hemorrhage. He is doing well overall, feels his headache and nausea are improving with time. He denies any new neurological symptoms. 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 He had a repeat CT head completed and is here to review the results. Chief Complaint Patient presents with Follow-up Patient present for CT head follow up. Patient had a fall in November which resulted in SDH. Patient reports improvement in headaches, no new blurry vision. Past Medical History: Past Medical History: Diagnosis Date Arthritis Cancer (CMS/HCC) (HCC) colon Hyperlipidemia Hypertension Other disorders of kidney and ureter in diseases classified elsewhere Psychiatric problem Thyroid disease Past Surgical History: Past Surgical History: Procedure Laterality Date COLON SURGERY PROSTATE SURGERY seeds Home Medications: Prior to Admission medications Medication Sig Start Date End Date Taking? Authorizing Provider acetaminophen (Tylenol) 500 MG tablet Take 2 tablets (1,000 mg) by mouth every 8 hours. 12/18/24 01/17/25 Yes KATEY Vinson CNP buprenorphine-naloxone (Suboxone) 8-[address] 0.25 tablets under the tongue as needed (4 times daily as needed). 02/05/24 Yes Historical Provider, gabapentin (Neurontin) 300 MG capsule Take 300 mg by mouth 2 times daily. Yes Historical Provider, levothyroxine (Synthroid, Levoxyl) 25 MCG tablet Take 25 mcg by mouth every morning (before breakfast). Yes Historical Provider, losartan (Cozaar) 25 MG tablet Take 25 mg by mouth 2 times daily. Yes Historical Provider, mirabegron ER (Myrbetriq) 25 MG 24 hr tablet Take 25 mg by mouth daily. 05/21/24 Yes Historical Provider, Multiple Vitamins-Minerals (One-A-Day Mens 50+ Advantage) tablet Take 1 tablet by mouth daily. Yes Historical Provider, pravastatin (Pravachol) 40 MG tablet Take 40 mg by mouth Nightly. Yes Historical Provider, methocarbamol (Robaxin) 500 MG tablet Take 1 tablet (500 mg) by mouth every 8 hours for 10 days. Patient not taking: Reported on 01/07/2025 12/18/24 12/28/24 KATEY Vinson CNP Allergies: Atenolol, Amlodipine, and Beta adrenergic blockers Social History: TOBACCO: reports that he has never smoked. He does not have any smokeless tobacco history on file. ETOH: reports no history of alcohol use. RECREATIONAL DRUG USE: Social History Substance and Sexual Activity Drug Use No Types: Opiates Family History: Family History Problem Relation Name Age of Onset No Known Problems Father No Known Problems Mother Review of Systems: Review of Systems 12-point ROS negative unless otherwise documented Physical Examination: Vitals: 01/07/25 1331 BP: 136/83 Pulse: 86 Physical Exam Awake and alert, oriented BUE 5/5 BLE 5/5 No drift Cranial nerves grossly intact Speech normal Results Labs: Last 24hrs No results found for this or any previous visit (from the past 24 hours). Radiology Personal review: Most recent CT brain reviewed and discussed with the patient in detail. IMPRESSION: No acute intracranial abnormalities. Interval resolution of the tiny left parafalcine subdural hematoma. ASSESSMENT / PLAN : Overall, Tanner has recovered well following his TBI in which he suffered a small parafalcine, acute SDH. At this point, his exam is reassuring, symptoms continue to improve and most recent CT shows his hematoma has resolved. We discussed the significance of his injury, concerning red flags to monitor in the future and advised him to gradually increase his activity and take mental rest until he feels back to himself. No further imaging necessary. Tanner can follow up with our team on a PRN basis moving forward Anders Robertson MD [facility] Neurosurgery I have spent 15 minutes reviewing previous notes, test results, and face to face with the patient discussing the diagnosis and importance of compliance with the treatment plan, as well as documenting on the day of the visit. documented in this encounter [facility] 12-20-2024 Telephone encounter Note Pt states he is returning call to office. Please advise. [facility] 12-20-2024 Miscellaneous Notes Pt states he is returning call to office. Please advise. First call made to reschedule appointment for a later time; pt was advised to call our office back at [phone]. Name of caller: Tanner Contact phone number: [phone] Relationship to Patient: patient Provider: Practice: Neurosurgery Chief Complaint/Reason for Call: Patient would like to know if he can get a call back to reschedule appointment to a later time. Please advise Best time of day caller can be reached: Any Patient advised that office/PCP has 24-48 business hours to return their call: Yes documented in this encounter [facility] [employer] 12-19-2024 Telephone encounter Note First call made to reschedule appointment for a later time; pt was advised to call our office back at [phone]. [facility] [employer] 12-19-2024 Miscellaneous Notes First call made to reschedule appointment for a later time; pt was advised to call our office back at [phone]. Name of caller: Tanner Contact phone number: [phone] Relationship to Patient: patient Provider: Practice: Neurosurgery Chief Complaint/Reason for Call: Patient would like to know if he can get a call back to reschedule appointment to a later time. Please advise Best time of day caller can be reached: Any Patient advised that office/PCP has 24-48 business hours to return their call: Yes documented in this encounter [facility] [employer] 12-19-2024 Telephone encounter Note Name of caller: Tanner Contact phone number: [phone] Relationship to Patient: patient Provider: Practice: Neurosurgery Chief Complaint/Reason for Call: Patient would like to know if he can get a call back to reschedule appointment to a later time. Please advise Best time of day caller can be reached: Any Patient advised that office/PCP has 24-48 business hours to return their call: Yes -[facility] [employer] 12-18-2024 Note Formatting of this n ote might be different from the original. Pt discussed 12-18-24 during interdisciplinary rounds. Pt is considered a Trauma Pt. Pt admitted due to a fall. Pt has a history of Opoid use. No needs anticipated but SW available as needs arise. -[facility] [employer] [employer] 12-18-2024 Note Formatting of this n ote might be different from the original. Pt discussed 12-18-24 during interdisciplinary rounds. Pt is considered a Trauma Pt. Pt admitted due to a fall. Pt has a history of Opoid use. No needs anticipated but SW available as needs arise. -[facility] [employer] [employer] 12-18-2024 Miscellaneous Notes Pt discussed 12-18-24 during interdisciplinary rounds. Pt is considered a Trauma Pt. Pt admitted due to a fall. Pt has a history of Opoid use. No needs anticipated but SW available as needs arise. PT recommending home with assist, discharge order placed. Scheduled pt a ride in [place] for 3:15 pm with yellow cab. Nurse notified. Problem: Pain - Adult Goal: Verbalizes/displays adequate comfort level or baseline comfort level Outcome: Progressing Problem: Safety - Adult Goal: Free from fall injury Outcome: Progressing Problem: Discharge Planning Goal: Discharge to home or other facility with appropriate resources Outcome: Progressing Problem: Potential for Falls Goal: I will remain free of falls Outcome: Progressing Care Managment Initial Assessment Date: 12/18/2024 Patient Name: Tanner Porter : 1955 Patient Information Source of Information: Patient Cognition/Language: WFL - Within Functional Limits Permission given to speak with patient technical account representative/caregiver as indicated: Yes Confirmation of Payer with patient/family: Yes Payer Name: Medicare : No Confirmation of Primary Care Physician: Confirmed PCP Name: Yash Donald MD Seen in last 2 years?: Yes Primary Caregiver: Self If assistance needed, confirmed caregiver ready, willing and able to care for patient at discharge: Yes Confirmed with: Tanner Living Arrangements Current Residence: House Number of Floors 2 Number of Entry Steps: 3 Bed/Bath Levels: Both second floor Facility: Facility Name: Plan to Return: Lives with: Spouse/significant other, Children Support Systems: Spouse/significant other, Children Activities of Daily Living Ambulation: Independent Bathing/Dressing: Independent Elimination/Continence/Toileting: Independent Feeding: Independent Who Assists with Activities of Daily Living: Instrumental Activities of Daily Living Prescription Coverage: Yes Pharmacy Used: [facility] in [place] Medication Management: Independent Transportation/Shopping: Independent Transportation Mode: Car Needs Assistance with Transportation at Discharge: Yes Meal Preparation: Independent Laundry/Cleaning: Independent Finances/Bill Paying: Independent Communication: Independent Types of Care Services/Equipment Utilized Care Services: Dialysis Type: Durable Medical Equipment: Patient's Goal/Discharge Plan Patient expects to be discharged to: home Discharge Planning Actions: Continue to follow Patient's Choice Rights and [employer] and Collaborative Relationships Disclosed as Indicated for Post-Acute Care: Interdisciplinary Team Engagement: Geriatric Assessment, PT/OT Social Work Referral for: Additional Information: Pt admitted s/p fall with tiny SDH. Introduced myself and role. Pt lives with and son. and son can provide assistance but pt will need a ride home. PT/OT pending. Will follow. Problem: Pain - Adult Goal: Verbalizes/displays adequate comfort level or baseline comfort level Outcome: Progressing Problem: Safety - Adult Goal: Free from fall injury Outcome: Progressing Problem: Discharge Planning Goal: Discharge to home or other facility with appropriate resources Outcome: Progressing Problem: Potential for Falls Goal: I will remain free of falls Outcome: Progressing documented in this encounter [facility] 12-18-2024 Note Formatting of this n ote might be different from the original. PT recommending home with assist, discharge order placed. Scheduled pt a ride in [place] for 3:15 pm with yellow cab. Nurse notified. [facility] 12-18-2024 Note Formatting of this n ote might be different from the original. PT recommending home with assist, discharge order placed. Scheduled pt a ride in [place] for 3:15 pm with yellow cab. Nurse notified. [facility] 12-18-2024 Consult note Associated Order (s): IP CONSULT TO NEUROSURGERY NEUROSURGERY CONSULT NOTE Patient Name: Tanner Porter Patient : 1955 PCP: YASH DONALD MD History of Present Illness: 69 y/o M who presents after mechanical fall, found to have a small acute left parafalcine subdural hemorrhage. No LOC. No seizure-like activity. No AC/ASA. Past Medical History: Past Medical History: Diagnosis Date Arthritis Cancer (CMS/HCC) (HCC) colon Hyperlipidemia Hypertension Other disorders of kidney and ureter in diseases classified elsewhere Psychiatric problem Thyroid disease Past Surgical History: Past Surgical History: Procedure Laterality Date COLON SURGERY PROSTATE SURGERY seeds Home Medications: Prior to Admission medications Medication Sig Start Date End Date Taking? Authorizing Provider gabapentin (Neurontin) 300 MG capsule Take 300 mg by mouth 2 times daily. Yes Historical Provider, levothyroxine (Synthroid, Levoxyl) 25 MCG tablet Take 25 mcg by mouth every morning (before breakfast). Yes Historical Provider, losartan (Cozaar) 25 MG tablet Take 25 mg by mouth 2 times daily. Yes Historical Provider, mirabegron ER (Myrbetriq) 25 MG 24 hr tablet Take 25 mg by mouth daily. 05/21/24 Yes Historical Provider, Multiple Vitamins-Minerals (One-A-Day Mens 50+ Advantage) tablet Take 1 tablet by mouth daily. Yes Historical Provider, naproxen (EC Naprosyn) 500 MG EC tablet Take 500 mg by mouth 2 times daily as needed for mild pain (1-3). Do not crush, chew, or split. Yes Historical Provider, pravastatin (Pravachol) 40 MG tablet Take 40 mg by mouth Nightly. Yes Historical Provider, buprenorphine-naloxone (Suboxone) 8-[address] 0.25 tablets under the tongue as needed (4 times daily as needed). Patient not taking: Reported on 12/17/2024 02/05/24 Historical Provider, Allergies: Atenolol, Amlodipine, and Beta adrenergic blockers Social History: TOBACCO: reports that he has never smoked. He does not have any smokeless tobacco history on file. ETOH: reports no history of alcohol use. RECREATIONAL DRUG USE: Social History Substance and Sexual Activity Drug Use No Types: Opiates Family History: Family History Problem Relation Name Age of Onset No Known Problems Father No Known Problems Mother Review of Systems: Review of Systems 12-point ROS completed and negative unless otherwise documented Physical Examination: Vitals: 12/18/24 1023 BP: 125/65 Pulse: 63 Resp: 15 Temp: 36.6 C (97.8 F) SpO2: 97% Physical Exam Neurological Exam Awake, alert, oriented x3 PERRL, FS, TM Speech fluent BUE 03/31 No drift BLE 03/31 SILT Results Labs: Last 24hrs Recent Results (from the past 24 hours) CBC auto differential Collection Time: 12/18/24 12:20 AM Result Value Ref Range Auto WBC 7.9 3.6 - 10.7 10*3/uL RBC 4.71 4.40 - 5.90 10*6/uL Hemoglobin 13.9 13.0 - 18.0 g/dL Hematocrit 40.7 40.0 - 52.0 % MCV 86.4 77.0 - 99.0 fL MCH 29.5 26.0 - 34.0 pg MCHC 34.2 30.5 - 36.0 % RDW 13.5 11.5 - 15.0 % Platelets 193 140 - 440 10*3/uL MPV 9.8 9.0 - 12.7 fL nRBC 0.0 0.0 - 2.0 /100 WBCs Neutrophils Relative 62.0 38.0 - 82.0 % Lymphocytes Relative 27.2 15.0 - 45.0 % Monocytes Relative 6.7 5.0 - 13.0 % Eosinophils Relative 2.8 0.0 - 6.0 % Basophils Relative 0.9 0.0 - 2.0 % Immature Grans % 0.4 0.0 - 2.0 % Neutrophils Absolute 4.9 1.8 - 7.5 10*3/uL Lymphocytes Absolute 2.1 1.0 - 4.3 10*3/uL Monocytes Absolute 0.5 0.0 - 0.9 10*3/uL Eosinophils Absolute 0.2 0.0 - 0.5 10*3/uL Basophils Absolute 0.1 0.0 - 0.2 10*3/uL Immature Grans Absolute 0.0 <0.1 10*3/uL Basic metabolic panel Collection Time: 12/18/24 12:20 AM Result Value Ref Range SODIUM 139 136 - 145 mmol/L POTASSIUM 3.5 3.5 - 5.1 mmol/L CHLORIDE 112 (H) 98 - 107 mmol/L CARBON DIOXIDE 21 (L) 23 - 31 mmol/L UREA NITROGEN 16 9 - 23 mg/dL CREATININE 0.82 0.72 - 1.25 mg/dL GLUCOSE 108 82 - 115 mg/dL CALCIUM 8.7 (L) 8.8 - 10.0 mg/dL ANION GAP 6 3 - 13 mmol/L eGFR >90.0 >60.0 mL/min/1.73m*2 Magnesium Collection Time: 12/18/24 12:20 AM Result Value Ref Range MAGNESIUM 2.0 1.6 - 2.6 mg/dL Radiology Personal review: IMPRESSION: Small acute left parafalcine subdural hemorrhage, not significantly changed. No significant mass effect. ASSESSMENT / PLAN : Overall, Tanner suffered a significant TBI from a mechanical fall, sustaining a small acute left parafalcine SDH. His neurological exam is reassuring as he remains non-focal. Repeated CT brain obtained this AM confirms stability when compared to his prior. At this point, no indications for neurosurgerical intervention. No seizure prophylaxis necessary. Patient is cleared for discharge from a neurosurgical standpoint. Please have Tanner follow up my team in clinic at 2 weeks after discharge with a repeat CT brain non contrast for further evaluation and assessment. Anders Robertson MD [facility] Neurosurgery I spent 60 minutes of my independent time evaluating the patient, reviewing the medical record, and counseling/coordinating care regarding his acute SDH. [employer] Work Phone: 12-18-2024 Consult note Associated Order (s): IP CONSULT TO NEUROSURGERY NEUROSURGERY CONSULT NOTE Patient Name: Tanner Porter Patient : 1955 PCP: YASH DONALD MD History of Present Illness: 69 y/o M who presents after mechanical fall, found to have a small acute left parafalcine subdural hemorrhage. No LOC. No seizure-like activity. No AC/ASA. Past Medical History: Past Medical History: Diagnosis Date Arthritis Cancer (CMS/HCC) (HCC) colon Hyperlipidemia Hypertension Other disorders of kidney and ureter in diseases classified elsewhere Psychiatric problem Thyroid disease Past Surgical History: Past Surgical History: Procedure Laterality Date COLON SURGERY PROSTATE SURGERY seeds Home Medications: Prior to Admission medications Medication Sig Start Date End Date Taking? Authorizing Provider gabapentin (Neurontin) 300 MG capsule Take 300 mg by mouth 2 times daily. Yes Historical Provider, levothyroxine (Synthroid, Levoxyl) 25 MCG tablet Take 25 mcg by mouth every morning (before breakfast). Yes Historical Provider, losartan (Cozaar) 25 MG tablet Take 25 mg by mouth 2 times daily. Yes Historical Provider, mirabegron ER (Myrbetriq) 25 MG 24 hr tablet Take 25 mg by mouth daily. 05/21/24 Yes Historical Provider, Multiple Vitamins-Minerals (One-A-Day Mens 50+ Advantage) tablet Take 1 tablet by mouth daily. Yes Historical Provider, naproxen (EC Naprosyn) 500 MG EC tablet Take 500 mg by mouth 2 times daily as needed for mild pain (1-3). Do not crush, chew, or split. Yes Historical Provider, pravastatin (Pravachol) 40 MG tablet Take 40 mg by mouth Nightly. Yes Historical Provider, buprenorphine-naloxone (Suboxone) 8-[address] 0.25 tablets under the tongue as needed (4 times daily as needed). Patient not taking: Reported on 12/17/2024 02/05/24 Historical Provider, Allergies: Atenolol, Amlodipine, and Beta adrenergic blockers Social History: TOBACCO: reports that he has never smoked. He does not have any smokeless tobacco history on file. ETOH: reports no history of alcohol use. RECREATIONAL DRUG USE: Social History Substance and Sexual Activity Drug Use No Types: Opiates Family History: Family History Problem Relation Name Age of Onset No Known Problems Father No Known Problems Mother Review of Systems: Review of Systems 12-point ROS completed and negative unless otherwise documented Physical Examination: Vitals: 12/18/24 1023 BP: 125/65 Pulse: 63 Resp: 15 Temp: 36.6 C (97.8 F) SpO2: 97% Physical Exam Neurological Exam Awake, alert, oriented x3 PERRL, FS, TM Speech fluent BUE 5/5 No drift BLE 5/5 SILT Results Labs: Last 24hrs Recent Results (from the past 24 hours) CBC auto differential Collection Time: 12/18/24 12:20 AM Result Value Ref Range Auto WBC 7.9 3.6 - 10.7 10*3/uL RBC 4.71 4.40 - 5.90 10*6/uL Hemoglobin 13.9 13.0 - 18.0 g/dL Hematocrit 40.7 40.0 - 52.0 % MCV 86.4 77.0 - 99.0 fL MCH 29.5 26.0 - 34.0 pg MCHC 34.2 30.5 - 36.0 % RDW 13.5 11.5 - 15.0 % Platelets 193 140 - 440 10*3/uL MPV 9.8 9.0 - 12.7 fL nRBC 0.0 0.0 - 2.0 /100 WBCs Neutrophils Relative 62.0 38.0 - 82.0 % Lymphocytes Relative 27.2 15.0 - 45.0 % Monocytes Relative 6.7 5.0 - 13.0 % Eosinophils Relative 2.8 0.0 - 6.0 % Basophils Relative 0.9 0.0 - 2.0 % Immature Grans % 0.4 0.0 - 2.0 % Neutrophils Absolute 4.9 1.8 - 7.5 10*3/uL Lymphocytes Absolute 2.1 1.0 - 4.3 10*3/uL Monocytes Absolute 0.5 0.0 - 0.9 10*3/uL Eosinophils Absolute 0.2 0.0 - 0.5 10*3/uL Basophils Absolute 0.1 0.0 - 0.2 10*3/uL Immature Grans Absolute 0.0 <0.1 10*3/uL Basic metabolic panel Collection Time: 12/18/24 12:20 AM Result Value Ref Range SODIUM 139 136 - 145 mmol/L POTASSIUM 3.5 3.5 - 5.1 mmol/L CHLORIDE 112 (H) 98 - 107 mmol/L CARBON DIOXIDE 21 (L) 23 - 31 mmol/L UREA NITROGEN 16 9 - 23 mg/dL CREATININE 0.82 0.72 - 1.25 mg/dL GLUCOSE 108 82 - 115 mg/dL CALCIUM 8.7 (L) 8.8 - 10.0 mg/dL ANION GAP 6 3 - 13 mmol/L eGFR >90.0 >60.0 mL/min/1.73m*2 Magnesium Collection Time: 12/18/24 12:20 AM Result Value Ref Range MAGNESIUM 2.0 1.6 - 2.6 mg/dL Radiology Personal review: IMPRESSION: Small acute left parafalcine subdural hemorrhage, not significantly changed. No significant mass effect. ASSESSMENT / PLAN : Overall, Tanner suffered a significant TBI from a mechanical fall, sustaining a small acute left parafalcine SDH. His neurological exam is reassuring as he remains non-focal. Repeated CT brain obtained this AM confirms stability when compared to his prior. At this point, no indications for neurosurgerical intervention. No seizure prophylaxis necessary. Patient is cleared for discharge from a neurosurgical standpoint. Please have Tanner follow up my team in clinic at 2 weeks after discharge with a repeat CT brain non contrast for further evaluation and assessment. Anders Robertson MD [facility] Neurosurgery I spent 60 minutes of my independent time evaluating the patient, reviewing the medical record, and counseling/coordinating care regarding his acute SDH. Associated Order(s): IP CONSULT TO GERIATRICS [facility] Geriatric Medicine Inpatient Consult Service Admission Date: 12/17/2024 Admission Status: INPATIENT Chief Complaint: neck soreness Reason for Appointment Geriatrics consulted for 'Fall Assessment & Plan Principal Problem: Subdural hematoma (HCC) Fall -Multiple risk factors including neuropathy, decreased vision, chronic pain, and possible medication side effect -Continue PT/OT as able while inpatient -Vitamin D recommend checking outpatient -Check orthostatic vital signs as able -Medications with associated fall risk include: PRN Suboxone, Gabapentin, losartan Acute pain due to trauma --Agree with scheduled acetaminophen 1g TID, recommend checking LFT's --continue home dose Suboxone PRN-per patient he is weaning off medication by doctor until fall had not taken in 12 days. --continue Robaxin 500mg TID-monitor cognition closely-discussed with patient --takes PRN naprosyn at home-discussed to avoid using NSAID products due to bleeding risk, risk for BEV and CV risk. Patient verbalized understanding. No results found for: ALT, AST, GGT, ALKPHOS, BILITOT -Optimize nonpharmacologic pain treatment modalities. -Ensure that bowel regimen is in place while on narcotic regimen. At risk for delirium --Risk factors: head trauma, pain, advanced age, and high risk medications --Encourage PO intake, time up in chair, family visits, supervised ambulation, and sleep hygiene --If agitated, assess for and consider treating for pain --QTc= NA --No antipsychotic unless patient is danger to self/others/treatment --Monitor for constipation/urinary retention - last BM this AM per patient --Possible medication contributions: PRN Dilaudid-has not used, now discontinued PRN oxycodone-has not used I spent total time of 50 minutes face to face with the patient and/or family discussing the diagnosis and importance of compliance with the treatment plan as well as documenting on the day of the visit. In addition, that total time includes the following: -Reviewing previous notes, -Reviewing labs, -Obtaining and/or reviewing separately obtained history, -Counseling/educating the patient/family/caregiver, -Documenting clinical information in the patients electronic record, and -Performing a medically appropriate exam and/or evaluation Subjective: HPI 69 y.o. year-old male with a past medical history of arthritis, colon cancer,HLD, HTN, psychiatric problem, thyroid disease presented to [facility] on 12/17/24 after he fell onto concrete on 12/14/24. The incident happened next to his driveway at night. When the event happened the patient was grabbing something from the garage. He went to [place] ED, CT of head showed a tiny subdural hematoma and then transferred to [facility] ED on 12/17/24. Diagnosed with para-falcine SDH. Patient today reports he did not sleep well last night as he was woken up through the night to be assessed. He reports he had a M[place] this AM, Tylenol helped. Reports his neck is still sore, but improved. Reports his last BM was this AM. # of falls in the past 3 months: 1 # of falls in the past year: 1 History of falls: no Living situation: home with and son Assistive device: none Dizziness: no Pain: chronic pain from cancer, being weaned off suboxone, takes gabapentin as needed Incontinence/urgency (bowel, bladder, nocturia): yes, urine chronic Sleep (including use of medications/OTC for sleep): no Alcohol/drugs: no Mood: okay Memory: no concerns Numbness: to fingers and toes, chronic and worse with cold weather Vision: glasses to watch TV Hearing: no DM: no Weight/appetite: no, would like to lose weight Bone health (previous fractures): none Exercise/recent therapy: stays active, always moving Discussed with nurse, no agitation or behaviors noted. Was a little anxious this AM. Cooperative with medications. Progress notes reviewed: -Neurosurgery consulted, repeat CTH stable. No neurosurgical intervention. No seizure prophylaxis necessary PRN meds in past 24 hours: Suboxone times 1 on 12/18 Labs: 12/18-Sodium 139, potassium 3.5, BUN 16, creatinine 0/82 12/18-WBC 7.9, Hgb 13.9, platelets 193 Conversation with patient: -lives home with and son -independent in all ADL/IALDs -slipped on ice in drive way and fell, this is patient's first fall -does not use ETOH, tobacco products or recreational drugs -Is being weaned off Suboxone-was started for his cancer pain -recently restarted taking his gabapentin due to neuropathy pain in his hands and feet-chronic and worse in cold weather. Advance Care Planning Healthcare Power of Airline Mechanic: No Financial Power of Airline Mechanic: No Living Will:No Code Status: Full Code Allergies Allergen Reactions Atenolol Amlodipine Other Beta Adrenergic Blockers Other Current Facility-Administered Medications: acetaminophen (Tylenol) tablet 1,000 mg, 1,000 mg, Oral, q8h, Jagjit Braga MD, 1,000 mg at 12/18/24 0945 buprenorphine-naloxone (Suboxone) 8-2 MG per sublingual film 0.25 Film, 0.25 Film, SubLINGual, 4x daily PRN, Juan J Black MD, 0.25 Film at 12/18/24 0945 gabapentin (Neurontin) capsule 300 mg, 300 mg, Oral, TID, Juan J Black MD, 300 mg at 12/18/24 0945 hydrALAZINE (Apresoline) injection 10 mg, 10 mg, IntraVENous, q4h PRN, Juan J Black MD labetalol (Normodyne,Trandate) injection 10 mg, 10 mg, IntraVENous, q4h PRN, Juan J Black MD levothyroxine (Synthroid, Levoxyl) tablet 25 mcg, 25 mcg, Oral, qAM AC, Juan J Black MD, 25 mcg at 12/18/24 0514 losartan (Cozaar) tablet 50 mg, 50 mg, Oral, BID, Juan J Black MD, 50 mg at 12/18/24 0945 methocarbamol (Robaxin) tablet 500 mg, 500 mg, Oral, 3 times per day, Juan J Black MD, 500 mg at 12/18/24 0514 naloxone (Narcan) injection 0.4 mg, 0.4 mg, IntraVENous, q5 min PRN, Juan J Black MD ondansetron ODT (Zofran-ODT) disintegrating tablet 4 mg, 4 mg, Oral, q8h PRN OR ondansetron (Zofran) injection 4 mg, 4 mg, IntraVENous, q6h PRN, Juan J Black MD oxyCODONE (Roxicodone) immediate release tablet 5 mg, 5 mg, Oral, q4h PRN OR oxyCODONE (Roxicodone) immediate release tablet 10 mg, 10 mg, Oral, q4h PRN, Juan J Black MD pravastatin (Pravachol) tablet 40 mg, 40 mg, Oral, Nightly, Juan J Black MD, 40 mg at 12/18/24 0011 sodium chloride 0.9 % infusion, 5-250 mL/hr, IntraVENous, PRN, Juan J Black MD sodium chloride 0.9% (NS) flush 5-40 mL, 5-40 mL, IntraVENous, q12h, Juan J Black MD, 10 mL at 12/18/24 0012 sodium chloride 0.9% (NS) flush 5-40 mL, 5-40 mL, IntraVENous, PRN, Juan J Black MD tamsulosin (Flomax) 24 hr capsule 0.4 mg, 0.4 mg, Oral, Nightly, Juan J Black MD, 0.4 mg at 12/18/24 0011 Past Medical History: Diagnosis Date Arthritis Cancer (CMS/HCC) (HCC) colon Hyperlipidemia Hypertension Other disorders of kidney and ureter in diseases classified elsewhere Psychiatric problem Thyroid disease Past Surgical History: Procedure Laterality Date COLON SURGERY PROSTATE SURGERY seeds Social History Tobacco Use Smoking status: Never Smokeless tobacco: Not on file Substance Use Topics Alcohol use: No Social History Social History Narrative Not on file Family History Family History Problem Relation Name Age of Onset No Known Problems Father No Known Problems Mother Family Status Relation Name Status Father (Not Specified) Mother (Not Specified) No partnership data on file Review of Systems Constitutional: Positive for activity change. Negative for chills, diaphoresis, fatigue and fever. HENT: Negative for congestion and hearing loss. Eyes: Positive for visual disturbance. Negative for itching. Respiratory: Negative for cough and shortness of breath. Cardiovascular: Negative for chest pain, palpitations and leg swelling. Gastrointestinal: Negative for abdominal distention, abdominal pain, constipation, diarrhea, nausea and vomiting. Genitourinary: Negative for difficulty urinating and dysuria. Musculoskeletal: Positive for gait problem. Negative for arthralgias, back pain and joint swelling. Sore neck Neurological: Positive for weakness and headaches (this AM, Tylenol helped). Negative for dizziness and light-headedness. Psychiatric/Behavioral: Positive for sleep disturbance (last night). Negative for agitation, confusion, decreased concentration and dysphoric mood. Functional Status Prior to Admission: (I: Independent, A: Assisted, D: Dependent) ADLs I A D Notes Bathing [x] [] [] Dressing [x] [] [] Toileting [x] [] [] Transfers [x] [] [] Feeding [x] [] [] Ambulation [x] [] [] Assistive devices: none IADLs I A D Telephone [x] [] [] Transportation [x] [] [] Shopping [x] [] [] Meal prep [x] [] [] Housework [x] [] [] Medications [x] [] [] Finances [x] [] [] Objective: BP 125/65 (BP Location: Right arm, Patient Position: Sitting) Pulse 63 Temp 36.6 C (97.8 F) (Temporal) Resp 15 Ht 6' (1.829 m) Wt 240 lb (109 kg) SpO2 97% BMI 32.55 kg/m Intake/Output Summary (Last 24 hours) at 12/18/2024 1314 Last data filed at 12/18/2024 0649 Gross per 24 hour Intake 300 ml Output -- Net 300 ml Wt Readings from Last 3 Encounters: 12/17/24 240 lb (109 kg) Physical Exam Constitutional: General: He is not in acute distress. Appearance: He is not ill-appearing or toxic-appearing. Comments: Pleasant male sitting up in bed, on RA, NAD HENT: Right Ear: External ear normal. Left Ear: External ear normal. Nose: Nose normal. No congestion. Mouth/Throat: Mouth: Mucous membranes are moist. Pharynx: Oropharynx is clear. Eyes: General: Right eye: No discharge. Left eye: No discharge. Conjunctiva/sclera: Conjunctivae normal. Cardiovascular: Rate and Rhythm: Normal rate and regular rhythm. Pulmonary: Effort: Pulmonary effort is normal. No respiratory distress. Breath sounds: Normal breath sounds. No wheezing or rales. Comments: anteriorly Abdominal: General: Bowel sounds are normal. There is no distension. Palpations: Abdomen is soft. Tenderness: There is no abdominal tenderness. There is no guarding. Musculoskeletal: General: Normal range of motion. Right lower leg: No edema. Left lower leg: No edema. Skin: General: Skin is warm and dry. Neurological: Mental Status: He is alert and oriented to person, place, and time. Psychiatric: Mood and Affect: Mood normal. Behavior: Behavior normal. Labs and Imaging: Recent Results (from the past 24 hours) CBC auto differential Collection Time: 12/18/24 12:20 AM Result Value Ref Range Auto WBC 7.9 3.6 - 10.7 10*3/uL RBC 4.71 4.40 - 5.90 10*6/uL Hemoglobin 13.9 13.0 - 18.0 g/dL Hematocrit 40.7 40.0 - 52.0 % MCV 86.4 77.0 - 99.0 fL MCH 29.5 26.0 - 34.0 pg MCHC 34.2 30.5 - 36.0 % RDW 13.5 11.5 - 15.0 % Platelets 193 140 - 440 10*3/uL MPV 9.8 9.0 - 12.7 fL nRBC 0.0 0.0 - 2.0 /100 WBCs Neutrophils Relative 62.0 38.0 - 82.0 % Lymphocytes Relative 27.2 15.0 - 45.0 % Monocytes Relative 6.7 5.0 - 13.0 % Eosinophils Relative 2.8 0.0 - 6.0 % Basophils Relative 0.9 0.0 - 2.0 % Immature Grans % 0.4 0.0 - 2.0 % Neutrophils Absolute 4.9 1.8 - 7.5 10*3/uL Lymphocytes Absolute 2.1 1.0 - 4.3 10*3/uL Monocytes Absolute 0.5 0.0 - 0.9 10*3/uL Eosinophils Absolute 0.2 0.0 - 0.5 10*3/uL Basophils Absolute 0.1 0.0 - 0.2 10*3/uL Immature Grans Absolute 0.0 <0.1 10*3/uL Basic metabolic panel Collection Time: 12/18/24 12:20 AM Result Value Ref Range SODIUM 139 136 - 145 mmol/L POTASSIUM 3.5 3.5 - 5.1 mmol/L CHLORIDE 112 (H) 98 - 107 mmol/L CARBON DIOXIDE 21 (L) 23 - 31 mmol/L UREA NITROGEN 16 9 - 23 mg/dL CREATININE 0.82 0.72 - 1.25 mg/dL GLUCOSE 108 82 - 115 mg/dL CALCIUM 8.7 (L) 8.8 - 10.0 mg/dL ANION GAP 6 3 - 13 mmol/L eGFR >90.0 >60.0 mL/min/1.73m*2 Magnesium Collection Time: 12/18/24 12:20 AM Result Value Ref Range MAGNESIUM 2.0 1.6 - 2.6 mg/dL No results found for: TSH No components found for: B12 No results found for: VITD25 Reviewed: active problem list, medication list, allergies, social history, notes from last several encounters, lab results Follow-up: will sign off, please call if questions KATEY Marley CNP 12/18/24 1:14 PM documented in this encounter [facility] 12-18-2024 Note PHYSICAL THERAPY [facility] Initial Evaluation Name/MRN: Tanner Porter ([id number]) Evaluation Date: 12/18/2024 Date of : 1955 Admission Date: 12/17/2024 10:47 PM Age: 69 y.o. Room/Bed: [facility] B Discharge Recommendation: Home with assist PRN Assessment IMPRESSION: pt admitted with subdural hematoma, fall on ice. Pt modif indep to indep for functional mobility. Recommend home with assist PRN. Admitting Diagnosis: subdural hematoma, fall on ice Prognosis: good Performance Deficits /Impairments: N/A Decision Making: Low Complexity Subjective Pt in bed. Agreeable to PT. Pleasant. Reports having no issues moving around. Pain: slight neck soreness Past Medical History: Past Medical History: Diagnosis Date Arthritis Cancer (CMS/HCC) (HCC) colon Hyperlipidemia Hypertension Other disorders of kidney and ureter in diseases classified elsewhere Psychiatric problem Thyroid disease Past Surgical History: Past Surgical History: Procedure Laterality Date COLON SURGERY PROSTATE SURGERY seeds Admission Diagnosis: Patient Active Problem List Diagnosis Date Noted Subdural hematoma (HCC) 12/17/2024 Benzodiazepine dependence (HCC) 10/27/2018 Opioid dependence with current use ([facility]) 10/25/2018 Medical Precautions: No active isolations Proper PPE donned/doffed in accordance with facility standards. 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 Prior Level of Function Prior Level of ADL Function: Independent Prior Level of Mobility: Independent; Device: None Prior Level of Transfers: Independent Objective Lower Extremity Assessment AROM: WFL PROM: Not assessed this session Strength: Exceptions: observed at least 4-/5 BLEs through functional mobility Sensation: Exceptions: baseline neuropathy issues Balance: sat on EOB indep. Static stance supervision to indep. No LOB while walking. Bed Mobility: Supine to sit: Modified Independent Sit to supine: Modified Independent Scooting: Independent HOB Elevated Transfers Sit to stand: Independent Stand to sit: Independent Ambulation Ambulation 1 Assistive device(s) used: None Assist level: Independent Distance (ft): 220ft Quality of gait: no LOB, good stride length Stairs Stairs 1 Assistive device(s) used: None Assist level: Modified Independent # of steps: 4 Rails: right Additional factors: reciprocal going up, reciprocal going down Outcome Measures AM-PAC How much HELP from another person do you currently need Turning from your back to your side while in a flat bed without using bedrails?: None Moving from lying on your back to sitting on the side of a flat bed without using bedrails?: None Moving to and from a bed to a chair (including a wheelchair)?: None Standing up from a chair using your arms (wheelchair or bedside chair)?: None Walking in a hospital room?: None Stair climbing assessed?: Yes Climbing 3-5 steps with a railing?+: None AM-PAC Inpatient Mobility Raw Score : 24 AM-PAC Inpatient Mobility Raw Score (No Stairs) : 20 JH-HLM JH-HLM Score: Walked 25 ft or more (i.e. walked outside of room) Plan No skilled acute PT indicated at this time. Please reconsult should changes occur. Safety/Education Safety Safety Devices in place: call light within reach, left in bed, and no alarms engaged upon entry Restraints: No Education Education Given To: patient Education Provided: PT Role Education Method: Verbal Barriers to Learning: Education Outcome: Goals Patient Stated Goal: to go home Therapy Time Individual Co-Treatment Co-Evaluation Time In 1307 Time Out 1315 Minutes 8 Adri Whitten PT Patient's Physical Therapy Plan of Care supervision is transferred to a [facility] Services Physical Therapist. Goals and/or treatment plan was established in collaboration with patient/family/other representatives. [facility] 12-18-2024 History of Present illness Narrative Images from the original note were not included. PHYSICAL THERAPY [facility] Initial Evaluation Name/MRN: Tanner Porter ([id number]) Evaluation Date: 12/18/2024 Date of : 1955 Admission Date: 12/17/2024 10:47 PM Age: 69 y.o. Room/Bed: W3323/W3323 B Discharge Recommendation: Home with assist PRN Assessment IMPRESSION: pt admitted with subdural hematoma, fall on ice. Pt modif indep to indep for functional mobility. Recommend home with assist PRN. Admitting Diagnosis: subdural hematoma, fall on ice Prognosis: good Performance Deficits /Impairments: N/A Decision Making: Low Complexity Subjective Pt in bed. Agreeable to PT. Pleasant. Reports having no issues moving around. Pain: slight neck soreness Past Medical History: Past Medical History: Diagnosis Date Arthritis Cancer (CMS/HCC) (HCC) colon Hyperlipidemia Hypertension Other disorders of kidney and ureter in diseases classified elsewhere Psychiatric problem Thyroid disease Past Surgical History: Past Surgical History: Procedure Laterality Date COLON SURGERY PROSTATE SURGERY seeds Admission Diagnosis: Patient Active Problem List Diagnosis Date Noted Subdural hematoma (HCC) 12/17/2024 Benzodiazepine dependence (HCC) 10/27/2018 Opioid dependence with current use (HCC) 10/25/2018 Medical Precautions: No active isolations Proper PPE donned/doffed in accordance with facility standards. 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 Prior Level of Function Prior Level of ADL Function: Independent Prior Level of Mobility: Independent; Device: None Prior Level of Transfers: Independent Objective Lower Extremity Assessment AROM: WFL PROM: Not assessed this session Strength: Exceptions: observed at least 4-/5 BLEs through functional mobility Sensation: Exceptions: baseline neuropathy issues Balance: sat on EOB indep. Static stance supervision to indep. No LOB while walking. Bed Mobility: Supine to sit: Modified Independent Sit to supine: Modified Independent Scooting: Independent HOB Elevated Transfers Sit to stand: Independent Stand to sit: Independent Ambulation Ambulation 1 Assistive device(s) used: None Assist level: Independent Distance (ft): 220ft Quality of gait: no LOB, good stride length Stairs Stairs 1 Assistive device(s) used: None Assist level: Modified Independent # of steps: 4 Rails: right Additional factors: reciprocal going up, reciprocal going down Outcome Measures AM-PAC How much HELP from another person do you currently need Turning from your back to your side while in a flat bed without using bedrails?: None Moving from lying on your back to sitting on the side of a flat bed without using bedrails?: None Moving to and from a bed to a chair (including a wheelchair)?: None Standing up from a chair using your arms (wheelchair or bedside chair)?: None Walking in a hospital room?: None Stair climbing assessed?: Yes Climbing 3-5 steps with a railing?+: None AM-PAC Inpatient Mobility Raw Score : 24 AM-PAC Inpatient Mobility Raw Score (No Stairs) : 20 JH-HLM JH-HLM Score: Walked 25 ft or more (i.e. walked outside of room) Plan No skilled acute PT indicated at this time. Please reconsult should changes occur. Safety/Education Safety Safety Devices in place: call light within reach, left in bed, and no alarms engaged upon entry Restraints: No Education Education Given To: patient Education Provided: PT Role Education Method: Verbal Barriers to Learning: Education Outcome: Goals Patient Stated Goal: to go home Therapy Time Individual Co-Treatment Co-Evaluation Time In 1307 Time Out 1315 Minutes 8 Adri Whitten PT Patient's Physical Therapy Plan of Care supervision is transferred to a [facility] Services Physical Therapist. Goals and/or treatment plan was established in collaboration with patient/family/other representatives. Images from the original note were not included. Daily Trauma Progress Note ABIODUN 12/18/2024 6:48 AM Admit Date: 12/17/2024 Post Trauma Day 4/ PHD 1 Fall Mechanical HISTORY OF TRAUMATIC EVENT: 69 y.o. male status post fall onto concrete. The incident happened around 12/14/[address] at night. When the event happened the patient was grabbing something from the garage. INJURIES: Tiny acute parafalcine subdural hematoma PROCEDURES: None INCIDENTAL FINDINGS: None CHIEF COMPLAINT: Neck soreness PREVIOUS 24 HOUR EVENTS: Patient presented to [facility] with complains of fall and neck soreness Consults: Neurosurgery MEDICATIONS: Current Facility-Administered Medications: acetaminophen (Tylenol) tablet 1,000 mg, 1,000 mg, Oral, q8h, Jagjit Braga MD buprenorphine-naloxone (Suboxone) 8-2 MG per sublingual film 0.25 Film, 0.25 Film, SubLINGual, 4x daily PRN, Juan J Black MD gabapentin (Neurontin) capsule 300 mg, 300 mg, Oral, TID, Juan J Black MD, 300 mg at 12/18/24 0011 hydrALAZINE (Apresoline) injection 10 mg, 10 mg, IntraVENous, q4h PRN, Juan J Black MD labetalol (Normodyne,Trandate) injection 10 mg, 10 mg, IntraVENous, q4h PRN, Juan J Black MD levothyroxine (Synthroid, Levoxyl) tablet 25 mcg, 25 mcg, Oral, qAM AC, Juan J Black MD, 25 mcg at 12/18/24 0514 losartan (Cozaar) tablet 50 mg, 50 mg, Oral, BID, Juan J Black MD methocarbamol (Robaxin) tablet 500 mg, 500 mg, Oral, 3 times per day, Juan J Black MD, 500 mg at 12/18/24 0514 naloxone (Narcan) injection 0.4 mg, 0.4 mg, IntraVENous, q5 min PRN, Juan J Black MD ondansetron ODT (Zofran-ODT) disintegrating tablet 4 mg, 4 mg, Oral, q8h PRN OR ondansetron (Zofran) injection 4 mg, 4 mg, IntraVENous, q6h PRN, Juan J Black MD oxyCODONE (Roxicodone) immediate release tablet 5 mg, 5 mg, Oral, q4h PRN OR oxyCODONE (Roxicodone) immediate release tablet 10 mg, 10 mg, Oral, q4h PRN, Juan J Black MD pravastatin (Pravachol) tablet 40 mg, 40 mg, Oral, Nightly, Juan J Black MD, 40 mg at 12/18/24 0011 sodium chloride 0.9 % infusion, 5-250 mL/hr, IntraVENous, PRN, Juan J Black MD sodium chloride 0.9% (NS) flush 5-40 mL, 5-40 mL, IntraVENous, q12h, Juan J Black MD, 10 mL at 12/18/24 0012 sodium chloride 0.9% (NS) flush 5-40 mL, 5-40 mL, IntraVENous, PRN, Juan J Black MD tamsulosin (Flomax) 24 hr capsule 0.4 mg, 0.4 mg, Oral, Nightly, Juan J Black MD, 0.4 mg at 12/18/24 0011 ARE THERE PERTINENT UPDATES TO PAST,FAMILY, OR SOCIAL HISTORY?: No Subjective: States he felt better when he was at home. States he did not sleep well overnight, bed was uncomfortable. States he has a continuous headache, denies nausea or dizziness. States he has been up to the bathroom several times over night without issue. Review of Systems Constitutional: Positive for activity change. Negative for chills and fever. Eyes: Negative. Respiratory: Negative. Cardiovascular: Negative. Gastrointestinal: Negative. Genitourinary: Negative. Skin: Negative. Neurological: Positive for headaches. Negative for dizziness and weakness. Psychiatric/Behavioral: Negative. All other systems reviewed and are negative. PC-PTSD-5 Had nightmares about the event(s) or thought about the event(s) when you did not want to? No 2. Tried hard not to think about the event(s) or went out of your way to avoid situations that reminded you of the event(s)? No 3. Been constantly on guard, watchful, or easily startled? No 4. Verdi numb or detached from people, activities, or your surroundings? No 5. Verdi guilty or unable to stop blaming yourself or others for the event(s) or any problems the event(s) may have caused? No If yes to 2 or more, [address] CLP consult PHQ In the last 2 weeks have you had: Little interest or pleasure in doing things No Been feeling down, depressed, or hopeless No If greater then 0, place CLP consult Date PHQ completed: 12/18 Objective: Patient Vitals for the past 24 hrs: BP Temp Temp src Pulse Resp SpO2 Height Weight 12/18/24 0527 143/76 36.5 C (97.7 F) Temporal 67 12 95 % -- -- 12/18/24 0126 122/59 36.4 C (97.6 F) Temporal 56 12 95 % -- -- 12/17/242256 -- -- -- -- -- -- 1.829 m (6') 109 kg (240 lb) 12/17/242251 (!) 164/85 36.8 C (98.2 F) Temporal 69 12 98 % -- -- No intake or output data in the 24 hours ending 12/18/24 0648 No intake/output data recorded. Last BM: ORTHOTIC PRACTITIONER Diet: Reg CVP: No Where: na Chest Tubes: R: NoOutput: na Air Leak: N/A L: No Output: na Air Leak: N/A PHYSICAL: Physical Exam Constitutional: General: He is not in acute distress. Appearance: Normal appearance. He is not ill-appearing. HENT: Head: Normocephalic. Right Ear: External ear normal. Left Ear: External ear normal. Nose: Nose normal. Mouth/Throat: Mouth: Mucous membranes are moist. Eyes: General: Right eye: No discharge. Left eye: No discharge. Extraocular Movements: Extraocular movements intact. Pupils: Pupils are equal, round, and reactive to light. Cardiovascular: Rate and Rhythm: Normal rate. Pulses: Normal pulses. Pulmonary: Effort: Pulmonary effort is normal. Abdominal: General: There is no distension. Palpations: Abdomen is soft. Musculoskeletal: General: No swelling or tenderness. Normal range of motion. Cervical back: Normal range of motion. No tenderness. Skin: General: Skin is warm. Capillary Refill: Capillary refill takes less than 2 seconds. Neurological: General: No focal deficit present. Mental Status: He is alert and oriented to person, place, and time. Cranial Nerves: No cranial nerve deficit. Sensory: No sensory deficit. Psychiatric: Mood and Affect: Mood normal. Sutures or sp? No O2: RA / / / Data Review Data CBC with Differential: Lab Results Component Value Date WBC 7.9 12/18/2024 RBC 4.71 12/18/2024 HGB 13.9 12/18/2024 HCT 40.7 12/18/2024 PLT 193 12/18/2024 CMP: Lab Results Component Value Date NA 139 12/18/2024 K 3.5 12/18/2024 CL 112 (H) 12/18/2024 CO2 21 (L) 12/18/2024 BUN 16 12/18/2024 CREATININE 0.82 12/18/2024 GLUCOSE 108 12/18/2024 CALCIUM 8.7 (L) 12/18/2024 BMP: Hepatic Function Panel:Ionized Calcium: No components found for: IONCA Magnesium: Lab Results Component Value Date MG 2.0 12/18/2024 Phosphorus: No results found for: PHOS PT/INR: No results found for: PROTIME, INR PTT: No results found for: APTT[APTT Last 3 Troponin: No results found for: TROPONINI Urine Culture: No components found for: CURINE Blood Culture: No components found for: CBLOOD, CFUNGUSBL Blood Culture from Central Line: No components found for: CBLOODLN Stool Culture: No components found for: CSTOOL Sputum Culture: No components found for: CSPUTUM Sputum Culture for AFB: No components found for: CAFBSM Wound Culture: Radiology: CT head wo IV contrast Result Date: 12/18/2024 Patient Name: TANNER PORTER : 1955 Exam Date/Time: 12/18/2024 07:07 Procedure: CT HEAD WO IV CONTRAST Ordering Provider: BRAGA ALEKSANDAR Reason For Exam: s/p fall with tiny subdural bleed EXAMINATION: CT HEAD WO IV CONTRAST HISTORY: Status post fall with known tiny parafalcine subdural bleed TECHNIQUE: CT head without contrast. Dose reduction was employed with automated exposure control. COMPARISON: Outside hospital head CT 12/17/2024 at 18:05 RESULT: Acute change/hemorrhage/mass effect: Small, 2 mm thick hyperattenuating subdural hemorrhage on the left aspect of the falx, not significantly changed. No significant associated mass effect. No acute territorial infarct. Chronic change: No apparent parenchymal changes. Atherosclerotic calcifications of the carotid siphons. Parenchyma: There is no significant volume loss. Ventricles: Normal caliber and morphology. Other: The calvarium, skull base, imaged paranasal sinuses, mastoids, orbits and extracranial soft tissues are unremarkable. Small acute left parafalcine subdural hemorrhage, not significantly changed. No significant mass effect. CRITICAL TEST RESULT COMMUNICATION: Notification of these findings was made to JAGJIT BRAGA via [employer] Secure Chat on 12/18/2024 8:05 AM EST. Receipt was confirmed. Report Dictated on Electronically Signed By: Anand Verduzco MD Electronically Signed Date/Time: 12/18/2024 8:09 AM EST Patient Active Problem List Diagnosis Benzodiazepine dependence (HCC) Opioid dependence with current use (HCC) Subdural hematoma (HCC) ASSESSMENT: 69 year old male s/p mech fall on 12/14 with SDH PLAN: Neuro/Spine: - SDH-Neurosurgery c/s, Repeat CTH stable - Pain control with scheduled Tylenol, prn oxy and suboxone - Home Kierra 300 mg BID HEENT: - No issues Cardiovascular: - HDS - HTN Cozaar home dose - HLD-Statin Pulmonary: - IS, cough and deep breath FEN/GI: - - Reg diet - Bowel regimen : - Estimated Creatinine Clearance: 111.5 mL/min (by C-G formula based on SCr of 0.82 mg/dL). Heme: - Hgb: 13.9 ID: - No indication for abx Endo: - Hypothyroid- home dose synthroid Lines/Devices: - PIV Prophylaxis: DVT: None Has DVT PPX been started? No If no, why? Acute ICH GI: NA Pressure Ulcer: Self turn Musculoskeletal: - PT/OT eval WB Status: RUE:AT LUE: AT RLE: AT LLE: AT Is the patient in restraints?: No Medications Reconciled- Yes [x] NO [], why Disposition: Continue 3 [facility], follow up neurosurgery rec's and PT. Patient would like to discharge to home today. Cosigned by Luis Sharpe MD at 12/18/2024 1:43 PM EST Associated attestation - Luis Sharpe MD - 12/18/2024 1:43 PM EST ATTENDING ADDENDUM Active Diagnoses/Problems this Admission: Patient Active Problem List Diagnosis Benzodiazepine dependence (HCC) Opioid dependence with current use (HCC) Subdural hematoma (HCC) I have personally performed a face to face diagnostic evaluation on this patient. I have reviewed and agree with the care plan as documented above by my ONLINE MARKETING ANALYST/IBRAHIMA. I personally discussed the review of systems and interviewed the patient along with performing a physical examination. In addition, I discussed the patient's condition and treatment options with him/her when possible. All of the patient's questions were answered and family updated when appropriate and possible. I performed a physical exam and ROS on the same date of service as above. My findings agree with the above note except for any details corrected below. Please note that the plan below is highlights/garland components and corrections; see the main ABIODUN note for the full Assessment/Plan. Injuries/problem list: -para-falcine SDH Operations/Procedures: -none Management/Plan: -I evaluated patient on 12/18/24 -Chief Compliant: fall, SDH -admitted last night, fall was two days prior -repeat CT head shows SDH is stable -no intervention per Neurosurgery -no AED -home meds -regular diet -PT recs are home with assist -anticipate discharge home today -discussed return precautions and importance of outpatient follow-up Total Care Time (combined between ONLINE MARKETING ANALYST/PA-C and myself) throughout the day today was >= 30 minutes (including chart/data review/analysis, care coordination, and [id number] encounter), and was spent discussing/counseling the patient/family regarding the care plan for Tanner Porter. I examined the patient independently. I reviewed relevant data myself and may have also done so in the context of team rounds. A full chart review was performed. I personally spent greater than 30 minutes involved with discharge planning, education, and coordination in arranging this patient's discharge today. uLis Sharpe MD, FACS Trauma, Surgical Critical Care, & Acute Care Surgery Department of Surgery [facility] Pager: [phone] ~~~~~~~~~~~~~~~~~~~~~~~~~~~~~~~~~~~~ ~~~~~~~~~~~~~~~~~~~~~~~~~ This note may have been dictated using [employer] Edition 2.6 and/or [employer] Voice Recognition Feature. The document was proofread; however, unrecognized voice recognition publishing specialist errors may be present. documented in this encounter [facility] 12-18-2024 Note -------- Attestation signed by Luis Sharpe MD at 12/18/2024 1:43 PM ATTENDING ADDENDUM (Please note that this attestation is also on the Daily Progress Note for today) Active Diagnoses/Problems this Admission: Patient Active Problem List Diagnosis Benzodiazepine dependence (HCC) Opioid dependence with current use (HCC) Subdural hematoma (HCC) I have personally performed a face to face diagnostic evaluation on this patient. I have reviewed and agree with the care plan as documented above by my ONLINE MARKETING ANALYST/IBRAHIMA. I personally discussed the review of systems and interviewed the patient along with performing a physical examination. In addition, I discussed the patient's condition and treatment options with him/her when possible. All of the patient's questions were answered and family updated when appropriate and possible. I performed a physical exam and ROS on the same date of service as above. My findings agree with the above note except for any details corrected below. Please note that the plan below is highlights/garland components and corrections; see the main ABIODUN note for the full Assessment/Plan. Injuries/problem list: -para-falcine SDH Operations/Procedures: -none Management/Plan: -I evaluated patient on 12/18/24 -Chief Compliant: fall, SDH -admitted last night, fall was two days prior -repeat CT head shows SDH is stable -no intervention per Neurosurgery -no AED -home meds -regular diet -PT recs are home with assist -anticipate discharge home today -discussed return precautions and importance of outpatient follow-up Total Care Time (combined between KATEY/IBRAHIMA and myself) throughout the day today was >= 30 minutes (including chart/data review/analysis, care coordination, and [id number] encounter), and was spent discussing/counseling the patient/family regarding the care plan for Tanner Porter. I examined the patient independently. I reviewed relevant data myself and may have also done so in the context of team rounds. A full chart review was performed. I personally spent greater than 30 minutes involved with discharge planning, education, and coordination in arranging this patient's discharge today. Luis Sharpe MD, FACS Trauma, Surgical Critical Care, & Acute Care Surgery Department of Surgery [facility] Pager: [phone] ~~~~~~~~~~~~~~~~~~~~~~~~~~~~~~~~~~~~ ~~~~~~~~~~~~~~~~~~~~~~~~~ This note may have been dictated using [employer] Edition 2.6 and/or [employer] Voice Recognition Feature. The document was proofread; however, unrecognized voice recognition publishing specialist errors may be present. -------- Department of Trauma / Critical Care Discharge Summary Name: Tanner Porter Date: 12/18/2024 1:11 PM : 1955 Age/Sex: 69 y.o. male Admit Date: 12/17/2024 Discharge Date: 12/18/2024 Attending: Jagjit Braga MD Discharge Diagnosis: 1. Subdural hematoma (HCC) Patient Active Problem List Diagnosis Benzodiazepine dependence (HCC) Opioid dependence with current use (HCC) Subdural hematoma (HCC) Body mass index is 32.55 kg/m?. BMI Classification: Obese (BMI 30.0-39.9) Reason for Hospitalization: The patient was admitted for SDH after a mechanical fall, hemorrhage ws stable. Hospital Course (Care, treatment and services provided): Please see H&P and prior notes for more detailed summary of previous investigations and clinical assessment prior to this admission. Brief HPI 69 y.o. male status post fall onto concrete. The incident happened around 12/14/[address] at night. When the event happened the patient was grabbing something from the garage. INJURIES: Tiny acute parafalcine subdural hematoma PROCEDURES: None INCIDENTAL FINDINGS: None Hospital course: Mr Porter arrived as a transfer. Admitted to [facility]. Repeat CTH in am unchanged. Neurosurgery evaluated and recommend ok to discharge. Follow up with Dr. Robertson in 2 weeks. Tolerating diet, pain controlled on oral meds. Consultations: IP CONSULT TO GERIATRICS IP CONSULT TO NEUROSURGERY PCP: YASH DONALD MD Recommended Follow-ups: Neurosurgery 2 weeks Trauma clinic as needed 2 weeks Treatments and Procedures with outcomes: Labs: Data Review Data CBC with Differential: Lab Results Component Value Date WBC 7.9 12/18/2024 RBC 4.71 12/18/2024 HGB 13.9 12/18/2024 HCT 40.7 12/18/2024 PLT 193 12/18/2024 CMP: Lab Results Component Value Date NA 139 12/18/2024 K 3.5 12/18/2024 CL 112 (H) 12/18/2024 CO2 21 (L) 12/18/2024 BUN 16 12/18/2024 CREATININE 0.82 12/18/2024 GLUCOSE 108 12/18/2024 CALCIUM 8.7 (L) 12/18/2024 BMP: Hepatic Function Panel: Ionized Calcium: No components found for: IONCA Magnesium: Lab Results Component Value Date MG 2. (more content not included)... [facility] 12-18-2024 Hospital course Narrative Images from the original note were not included. Department of Trauma / Critical Care Discharge Summary Name: Tanner Porter Date: 12/18/2024 1:11 PM : 1955 Age/Sex: 69 y.o. male Admit Date: 12/17/2024 Discharge Date: 12/18/2024 Attending: Jagjit Braga MD Discharge Diagnosis: 1. Subdural hematoma (HCC) Patient Active Problem List Diagnosis Benzodiazepine dependence (HCC) Opioid dependence with current use (HCC) Subdural hematoma (HCC) Body mass index is 32.55 kg/m . BMI Classification: Obese (BMI 30.0-39.9) Reason for Hospitalization: The patient was admitted for SDH after a mechanical fall, hemorrhage ws stable. Hospital Course (Care, treatment and services provided): Please see H&P and prior notes for more detailed summary of previous investigations and clinical assessment prior to this admission. Brief HPI 69 y.o. male status post fall onto concrete. The incident happened around 12/14/[address] at night. When the event happened the patient was grabbing something from the garage. INJURIES: Tiny acute parafalcine subdural hematoma PROCEDURES: None INCIDENTAL FINDINGS: None Hospital course: Mr Porter arrived as a transfer. Admitted to [facility]. Repeat CTH in am unchanged. Neurosurgery evaluated and recommend ok to discharge. Follow up with Dr. Robertson in 2 weeks. Tolerating diet, pain controlled on oral meds. Consultations: IP CONSULT TO GERIATRICS IP CONSULT TO NEUROSURGERY PCP: YASH DONALD MD Recommended Follow-ups: Neurosurgery 2 weeks Trauma clinic as needed 2 weeks Treatments and Procedures with outcomes: Labs: Data Review Data CBC with Differential: Lab Results Component Value Date WBC 7.9 12/18/2024 RBC 4.71 12/18/2024 HGB 13.9 12/18/2024 HCT 40.7 12/18/2024 PLT 193 12/18/2024 CMP: Lab Results Component Value Date NA 139 12/18/2024 K 3.5 12/18/2024 CL 112 (H) 12/18/2024 CO2 21 (L) 12/18/2024 BUN 16 12/18/2024 CREATININE 0.82 12/18/2024 GLUCOSE 108 12/18/2024 CALCIUM 8.7 (L) 12/18/2024 BMP: Hepatic Function Panel: Ionized Calcium: No components found for: IONCA Magnesium: Lab Results Component Value Date MG 2.0 12/18/2024 Phosphorus: No results found for: PHOS PT/INR: No results found for: PROTIME, INR PTT: No results found for: APTT[APTT Last 3 Troponin: No results found for: TROPONINI Urine Culture: No components found for: CURINE Blood Culture: No components found for: CBLOOD, CFUNGUSBL Blood Culture from Central Line: No components found for: CBLOODLN Stool Culture: No components found for: CSTOOL Sputum Culture: No components found for: CSPUTUM Sputum Culture for AFB: No components found for: CAFBSM Wound Culture: Procedures: None Significant Imaging Results: CT head wo IV contrast Result Date: 12/18/2024 Patient Name: TANNER PORTER : 1955 Exam Date/Time: 12/18/2024 07:07 Procedure: CT HEAD WO IV CONTRAST Ordering Provider: BRAGA ALEKSANDAR Reason For Exam: s/p fall with tiny subdural bleed EXAMINATION: CT HEAD WO IV CONTRAST HISTORY: Status post fall with known tiny parafalcine subdural bleed TECHNIQUE: CT head without contrast. Dose reduction was employed with automated exposure control. COMPARISON: Outside hospital head CT 12/17/2024 at 18:05 RESULT: Acute change/hemorrhage/mass effect: Small, 2 mm thick hyperattenuating subdural hemorrhage on the left aspect of the falx, not significantly changed. No significant associated mass effect. No acute territorial infarct. Chronic change: No apparent parenchymal changes. Atherosclerotic calcifications of the carotid siphons. Parenchyma: There is no significant volume loss. Ventricles: Normal caliber and morphology. Other: The calvarium, skull base, imaged paranasal sinuses, mastoids, orbits and extracranial soft tissues are unremarkable. Small acute left parafalcine subdural hemorrhage, not significantly changed. No significant mass effect. CRITICAL TEST RESULT COMMUNICATION: Notification of these findings was made to JAGJIT BRAGA via [employer] Secure Chat on 12/18/2024 8:05 AM EST. Receipt was confirmed. Report Dictated on Electronically Signed By: Anand Verduzco MD Electronically Signed Date/Time: 12/18/2024 8:09 AM EST Pending Test Results and Tests to Obtain as Outpatient: [facility] neurosurgery Disposition: He was discharged to home Discharge Medications: He did not have significant changes to their home medications (see below) Medication List ASK your doctor about these medications buprenorphine-naloxone 8-2 MG SL tablet Commonly known as: Suboxone gabapentin 300 MG capsule Commonly known as: Neurontin levothyroxine 25 MCG tablet Commonly known as: Synthroid, Levoxyl losartan 25 MG tablet Commonly known as: Cozaar mirabegron ER 25 MG 24 hr tablet Commonly known as: Myrbetriq naproxen 500 MG EC tablet Commonly known as: EC Naprosyn One-A-Day Mens 50+ Advantage tablet pravastatin 40 MG tablet Commonly known as: Pravachol Discharge Condition: Physical Exam at the time of discharge: Please refer to the Progress note on day of discharge for a detailed exam. At the time of discharge the patient is stable. Discharge Instructions: Activity: activity as tolerated Diet: regular diet Discharge needs: Home Care The patient's OARRS report was obtained and reviewed by myself on 12/18/2024. Discharge Instructions Provided: SDH info Concussion education Attestation: I spent 30 minutes on pt discharge. Cosigned by Luis Sharpe MD at 12/18/2024 1:43 PM EST Associated attestation - Luis Sharpe MD - 12/18/2024 1:43 PM EST ATTENDING ADDENDUM (Please note that this attestation is also on the Daily Progress Note for today) Active Diagnoses/Problems this Admission: Patient Active Problem List Diagnosis Benzodiazepine dependence (HCC) Opioid dependence with current use (HCC) Subdural hematoma (HCC) I have personally performed a face to face diagnostic evaluation on this patient. I have reviewed and agree with the care plan as documented above by my ONLINE MARKETING ANALYST/TICOC. I personally discussed the review of systems and interviewed the patient along with performing a physical examination. In addition, I discussed the patient's condition and treatment options with him/her when possible. All of the patient's questions were answered and family updated when appropriate and possible. I performed a physical exam and ROS on the same date of service as above. My findings agree with the above note except for any details corrected below. Please note that the plan below is highlights/garland components and corrections; see the main [facility] note for the full Assessment/Plan. Injuries/problem list: -para-falcine SDH Operations/Procedures: -none Management/Plan: -I evaluated patient on 12/18/24 -Chief Compliant: fall, SDH -admitted last night, fall was two days prior -repeat CT head shows SDH is stable -no intervention per Neurosurgery -no AED -home meds -regular diet -PT recs are home with assist -anticipate discharge home today -discussed return precautions and importance of outpatient follow-up Total Care Time (combined between ONLINE MARKETING ANALYST/IBRAHIMA and myself) throughout the day today was >= 30 minutes (including chart/data review/analysis, care coordination, and [id number] encounter), and was spent discussing/counseling the patient/family regarding the care plan for Tanner Porter. I examined the patient independently. I reviewed relevant data myself and may have also done so in the context of team rounds. A full chart review was performed. I personally spent greater than 30 minutes involved with discharge planning, education, and coordination in arranging this patient's discharge today. Luis Sharpe MD, FACS Trauma, Surgical Critical Care, & Acute Care Surgery Department of Surgery [facility] Pager: [phone] ~~~~~~~~~~~~~~~~~~~~~~~~~~~~~~~~~~~~ ~~~~~~~~~~~~~~~~~~~~~~~~~ This note may have been dictated using [employer] Edition 2.6 and/or [employer] Voice Recognition Feature. The document was proofread; however, unrecognized voice recognition publishing specialist errors may be present. documented in this encounter [facility] 12-18-2024 Hospital Discharge instructions KATEY Vinson CNP - 12/18/2024 1:06 PM EST You have been diagnosed with a concussion. Upon discharge you can expect post-concussion symptoms. These include but are not limited to: - Thinking/remembering - difficulty thinking clearly, remembering new info, and concentrating - Physical - headache, blurry vision, dizziness, sensitivity to light and noises, feeling tired, balance problems - Emotional, mood - irritability, sadness, emotional, nervous or anxiety - Sleep - sleeping more than usual, sleep less then usual, trouble falling asleep To feel better: - Get plenty of sleep at night, and take it easy during the day - Avoid physically demanding activities or those that require a lot of concentration - Do not drive, operate heavy equipment until cleared by your doctor - Do not drink alcohol The following attachments cannot be sent through Care Everywhere.Subdural Hematoma (Burmese)Concussion Discharge Instructions, Adult (Burmese)documented in this encounter [facility] 12-18-2024 Consult note Associated Order (s): IP CONSULT TO GERIATRICS [facility] Geriatric Medicine Inpatient Consult Service Admission Date: 12/17/2024 Admission Status: INPATIENT Chief Complaint: neck soreness Reason for Appointment Geriatrics consulted for 'Fall Assessment & Plan Principal Problem: Subdural hematoma (HCC) Fall -Multiple risk factors including neuropathy, decreased vision, chronic pain, and possible medication side effect -Continue PT/OT as able while inpatient -Vitamin D recommend checking outpatient -Check orthostatic vital signs as able -Medications with associated fall risk include: PRN Suboxone, Gabapentin, losartan Acute pain due to trauma --Agree with scheduled acetaminophen 1g TID, recommend checking LFT's --continue home dose Suboxone PRN-per patient he is weaning off medication by doctor until fall had not taken in 12 days. --continue Robaxin 500mg TID-monitor cognition closely-discussed with patient --takes PRN naprosyn at home-discussed to avoid using NSAID products due to bleeding risk, risk for BEV and CV risk. Patient verbalized understanding. No results found for: ALT, AST, GGT, ALKPHOS, BILITOT -Optimize nonpharmacologic pain treatment modalities. -Ensure that bowel regimen is in place while on narcotic regimen. At risk for delirium --Risk factors: head trauma, pain, advanced age, and high risk medications --Encourage PO intake, time up in chair, family visits, supervised ambulation, and sleep hygiene --If agitated, assess for and consider treating for pain --QTc= NA --No antipsychotic unless patient is danger to self/others/treatment --Monitor for constipation/urinary retention - last BM this AM per patient --Possible medication contributions: PRN Dilaudid-has not used, now discontinued PRN oxycodone-has not used I spent total time of 50 minutes face to face with the patient and/or family discussing the diagnosis and importance of compliance with the treatment plan as well as documenting on the day of the visit. In addition, that total time includes the following: -Reviewing previous notes, -Reviewing labs, -Obtaining and/or reviewing separately obtained history, -Counseling/educating the patient/family/caregiver, -Documenting clinical information in the patients electronic record, and -Performing a medically appropriate exam and/or evaluation Subjective: HPI 69 y.o. year-old male with a past medical history of arthritis, colon cancer,HLD, HTN, psychiatric problem, thyroid disease presented to [facility] on 12/17/24 after he fell onto concrete on 12/14/24. The incident happened next to his driveway at night. When the event happened the patient was grabbing something from the garage. He went to [place] ED, CT of head showed a tiny subdural hematoma and then transferred to [facility] ED on 12/17/24. Diagnosed with para-falcine SDH. Patient today reports he did not sleep well last night as he was woken up through the night to be assessed. He reports he had a MONTELONGO this AM, Tylenol helped. Reports his neck is still sore, but improved. Reports his last BM was this AM. # of falls in the past 3 months: 1 # of falls in the past year: 1 History of falls: no Living situation: home with and son Assistive device: none Dizziness: no Pain: chronic pain from cancer, being weaned off suboxone, takes gabapentin as needed Incontinence/urgency (bowel, bladder, nocturia): yes, urine chronic Sleep (including use of medications/OTC for sleep): no Alcohol/drugs: no Mood: okay Memory: no concerns Numbness: to fingers and toes, chronic and worse with cold weather Vision: glasses to watch TV Hearing: no DM: no Weight/appetite: no, would like to lose weight Bone health (previous fractures): none Exercise/recent therapy: stays active, always moving Discussed with nurse, no agitation or behaviors noted. Was a little anxious this AM. Cooperative with medications. Progress notes reviewed: -Neurosurgery consulted, repeat CTH stable. No neurosurgical intervention. No seizure prophylaxis necessary PRN meds in past 24 hours: Suboxone times 1 on 12/18 Labs: 12/18-Sodium 139, potassium 3.5, BUN 16, creatinine 0/82 12/18-WBC 7.9, Hgb 13.9, platelets 193 Conversation with patient: -lives home with and son -independent in all ADL/IALDs -slipped on ice in drive way and fell, this is patient's first fall -does not use ETOH, tobacco products or recreational drugs -Is being weaned off Suboxone-was started for his cancer pain -recently restarted taking his gabapentin due to neuropathy pain in his hands and feet-chronic and worse in cold weather. Advance Care Planning Healthcare Power of Airline Mechanic: No Financial Power of Airline Mechanic: No Living Will:No Code Status: Full Code Allergies Allergen Reactions Atenolol Amlodipine Other Beta Adrenergic Blockers Other Current Facility-Administered Medications: acetaminophen (Tylenol) tablet 1,000 mg, 1,000 mg, Oral, q8h, Jagjit Braga MD, 1,000 mg at 12/18/24944 buprenorphine-naloxone (Suboxone) 8-2 MG per sublingual film 0.25 Film, 0.25 Film, SubLINGual, 4x daily PRN, Juan J Black MD, 0.25 Film at 12/18/24944 gabapentin (Neurontin) capsule 300 mg, 300 mg, Oral, TID, Juan J Black MD, 300 mg at 12/18/24944 hydrALAZINE (Apresoline) injection 10 mg, 10 mg, IntraVENous, q4h PRN, Juan J Black MD labetalol (Normodyne,Trandate) injection 10 mg, 10 mg, IntraVENous, q4h PRN, Juan J Black MD levothyroxine (Synthroid, Levoxyl) tablet 25 mcg, 25 mcg, Oral, qAM AC, Juan J Black MD, 25 mcg at 12/18/24 05 losartan (Cozaar) tablet 50 mg, 50 mg, Oral, BID, Juan J Black MD, 50 mg at 12/18/2445 methocarbamol (Robaxin) tablet 500 mg, 500 mg, Oral, 3 times per day, Juan J Black MD, 500 mg at 12/18/24 05 naloxone (Narcan) injection 0.4 mg, 0.4 mg, IntraVENous, q5 min PRN, Juan J Black MD ondansetron ODT (Zofran-ODT) disintegrating tablet 4 mg, 4 mg, Oral, q8h PRN OR ondansetron (Zofran) injection 4 mg, 4 mg, IntraVENous, q6h PRN, Juan J Black MD oxyCODONE (Roxicodone) immediate release tablet 5 mg, 5 mg, Oral, q4h PRN OR oxyCODONE (Roxicodone) immediate release tablet 10 mg, 10 mg, Oral, q4h PRN, Juan J Black MD pravastatin (Pravachol) tablet 40 mg, 40 mg, Oral, Nightly, Juan J Black MD, 40 mg at 12/18/24 0011 sodium chloride 0.9 % infusion, 5-250 mL/hr, IntraVENous, PRN, Juan J Black MD sodium chloride 0.9% (NS) flush 5-40 mL, 5-40 mL, IntraVENous, q12h, Juan J Black MD, 10 mL at 12/18/24 0012 sodium chloride 0.9% (NS) flush 5-40 mL, 5-40 mL, IntraVENous, PRN, Juan J Black MD tamsulosin (Flomax) 24 hr capsule 0.4 mg, 0.4 mg, Oral, Nightly, Juan J Black MD, 0.4 mg at 12/18/24 0011 Past Medical History: Diagnosis Date Arthritis Cancer (CMS/HCC) (HCC) colon Hyperlipidemia Hypertension Other disorders of kidney and ureter in diseases classified elsewhere Psychiatric problem Thyroid disease Past Surgical History: Procedure Laterality Date COLON SURGERY PROSTATE SURGERY seeds Social History Tobacco Use Smoking status: Never Smokeless tobacco: Not on file Substance Use Topics Alcohol use: No Social History Social History Narrative Not on file Family History Family History Problem Relation Name Age of Onset No Known Problems Father No Known Problems Mother Family Status Relation Name Status Father (Not Specified) Mother (Not Specified) No partnership data on file Review of Systems Constitutional: Positive for activity change. Negative for chills, diaphoresis, fatigue and fever. HENT: Negative for congestion and hearing loss. Eyes: Positive for visual disturbance. Negative for itching. Respiratory: Negative for cough and shortness of breath. Cardiovascular: Negative for chest pain, palpitations and leg swelling. Gastrointestinal: Negative for abdominal distention, abdominal pain, constipation, diarrhea, nausea and vomiting. Genitourinary: Negative for difficulty urinating and dysuria. Musculoskeletal: Positive for gait problem. Negative for arthralgias, back pain and joint swelling. Sore neck Neurological: Positive for weakness and headaches (this AM, Tylenol helped). Negative for dizziness and light-headedness. Psychiatric/Behavioral: Positive for sleep disturbance (last night). Negative for agitation, confusion, decreased concentration and dysphoric mood. Functional Status Prior to Admission: (I: Independent, A: Assisted, D: Dependent) ADLs I A D Notes Bathing [x] [] [] Dressing [x] [] [] Toileting [x] [] [] Transfers [x] [] [] Feeding [x] [] [] Ambulation [x] [] [] Assistive devices: none IADLs I A D Telephone [x] [] [] Transportation [x] [] [] Shopping [x] [] [] Meal prep [x] [] [] Housework [x] [] [] Medications [x] [] [] Finances [x] [] [] Objective: BP 125/65 (BP Location: Right arm, Patient Position: Sitting) Pulse 63 Temp 36.6 C (97.8 F) (Temporal) Resp 15 Ht 6' (1.829 m) Wt 240 lb (109 kg) SpO2 97% BMI 32.55 kg/m Intake/Output Summary (Last 24 hours) at 12/18/2024 1314 Last data filed at 12/18/2024 0649 Gross per 24 hour Intake 300 ml Output -- Net 300 ml Wt Readings from Last 3 Encounters: 12/17/24 240 lb (109 kg) Physical Exam Constitutional: General: He is not in acute distress. Appearance: He is not ill-appearing or toxic-appearing. Comments: Pleasant male sitting up in bed, on RA, NAD HENT: Right Ear: External ear normal. Left Ear: External ear normal. Nose: Nose normal. No congestion. Mouth/Throat: Mouth: Mucous membranes are moist. Pharynx: Oropharynx is clear. Eyes: General: Right eye: No discharge. Left eye: No discharge. Conjunctiva/sclera: Conjunctivae normal. Cardiovascular: Rate and Rhythm: Normal rate and regular rhythm. Pulmonary: Effort: Pulmonary effort is normal. No respiratory distress. Breath sounds: Normal breath sounds. No wheezing or rales. Comments: anteriorly Abdominal: General: Bowel sounds are normal. There is no distension. Palpations: Abdomen is soft. Tenderness: There is no abdominal tenderness. There is no guarding. Musculoskeletal: General: Normal range of motion. Right lower leg: No edema. Left lower leg: No edema. Skin: General: Skin is warm and dry. Neurological: Mental Status: He is alert and oriented to person, place, and time. Psychiatric: Mood and Affect: Mood normal. Behavior: Behavior normal. Labs and Imaging: Recent Results (from the past 24 hours) CBC auto differential Collection Time: 12/18/24 12:20 AM Result Value Ref Range Auto WBC 7.9 3.6 - 10.7 10*3/uL RBC 4.71 4.40 - 5.90 10*6/uL Hemoglobin 13.9 13.0 - 18.0 g/dL Hematocrit 40.7 40.0 - 52.0 % MCV 86.4 77.0 - 99.0 fL MCH 29.5 26.0 - 34.0 pg MCHC 34.2 30.5 - 36.0 % RDW 13.5 11.5 - 15.0 % Platelets 193 140 - 440 10*3/uL MPV 9.8 9.0 - 12.7 fL nRBC 0.0 0.0 - 2.0 /100 WBCs Neutrophils Relative 62.0 38.0 - 82.0 % Lymphocytes Relative 27.2 15.0 - 45.0 % Monocytes Relative 6.7 5.0 - 13.0 % Eosinophils Relative 2.8 0.0 - 6.0 % Basophils Relative 0.9 0.0 - 2.0 % Immature Grans % 0.4 0.0 - 2.0 % Neutrophils Absolute 4.9 1.8 - 7.5 10*3/uL Lymphocytes Absolute 2.1 1.0 - 4.3 10*3/uL Monocytes Absolute 0.5 0.0 - 0.9 10*3/uL Eosinophils Absolute 0.2 0.0 - 0.5 10*3/uL Basophils Absolute 0.1 0.0 - 0.2 10*3/uL Immature Grans Absolute 0.0 <0.1 10*3/uL Basic metabolic panel Collection Time: 12/18/24 12:20 AM Result Value Ref Range SODIUM 139 136 - 145 mmol/L POTASSIUM 3.5 3.5 - 5.1 mmol/L CHLORIDE 112 (H) 98 - 107 mmol/L CARBON DIOXIDE 21 (L) 23 - 31 mmol/L UREA NITROGEN 16 9 - 23 mg/dL CREATININE 0.82 0.72 - 1.25 mg/dL GLUCOSE 108 82 - 115 mg/dL CALCIUM 8.7 (L) 8.8 - 10.0 mg/dL ANION GAP 6 3 - 13 mmol/L eGFR >90.0 >60.0 mL/min/1.73m*2 Magnesium Collection Time: 12/18/24 12:20 AM Result Value Ref Range MAGNESIUM 2.0 1.6 - 2.6 mg/dL No results found for: TSH No components found for: B12 No results found for: VITD25 Reviewed: active problem list, medication list, allergies, social history, notes from last several encounters, lab results Follow-up: will sign off, please call if questions KATEY Marley CNP 12/18/24 1:14 PM [employer] Work Phone: 12-18-2024 Plan of care note Problem: Pain - Adult Goal: Verbalizes/displays adequate comfort level or baseline comfort level Outcome: Progressing Problem: Safety - Adult Goal: Free from fall injury Outcome: Progressing Problem: Discharge Planning Goal: Discharge to home or other facility with appropriate resources Outcome: Progressing Problem: Potential for Falls Goal: I will remain free of falls Outcome: Progressing [employer] 12-18-2024 Note Formatting of this n ote might be different from the original. Care Managment Initial Assessment Date: 12/18/2024 Patient Name: Tanner Porter : 1955 Patient Information Source of Information: Patient Cognition/Language: WFL - Within Functional Limits Permission given to speak with patient technical account representative/caregiver as indicated: Yes Confirmation of Payer with patient/family: Yes Payer Name: Medicare Umpire: No Confirmation of Primary Care Physician: Confirmed PCP Name: Yash Donald MD Seen in last 2 years?: Yes Primary Caregiver: Self If assistance needed, confirmed caregiver ready, willing and able to care for patient at discharge: Yes Confirmed with: Tanner Living Arrangements Current Residence: House Number of Floors 2 Number of Entry Steps: 3 Bed/Bath Levels: Both second floor Facility: Facility Name: Plan to Return: Lives with: Spouse/significant other, Children Support Systems: Spouse/significant other, Children Activities of Daily Living Ambulation: Independent Bathing/Dressing: Independent Elimination/Continence/Toileting: Independent Feeding: Independent Who Assists with Activities of Daily Living: Instrumental Activities of Daily Living Prescription Coverage: Yes Pharmacy Used: [facility] in [place] Medication Management: Independent Transportation/Shopping: Independent Transportation Mode: Car Needs Assistance with Transportation at Discharge: Yes Meal Preparation: Independent Laundry/Cleaning: Independent Finances/Bill Paying: Independent Communication: Independent Types of Care Services/Equipment Utilized Care Services: Dialysis Type: Durable Medical Equipment: Patient's Goal/Discharge Plan Patient expects to be discharged to: home Discharge Planning Actions: Continue to follow Patient's Choice Rights and [employer] and Collaborative Relationships Disclosed as Indicated for Post-Acute Care: Interdisciplinary Team Engagement: Geriatric Assessment, PT/OT Social Work Referral for: Additional Information: Pt admitted s/p fall with tiny SDH. Introduced myself and role. Pt lives with and son. and son can provide assistance but pt will need a ride home. PT/OT pending. Will follow. [facility] 12-18-2024 Note Formatting of this n ote might be different from the original. Care Managment Initial Assessment Date: 12/18/2024 Patient Name: Tanner Porter : 1955 Patient Information Source of Information: Patient Cognition/Language: WFL - Within Functional Limits Permission given to speak with patient technical account representative/caregiver as indicated: Yes Confirmation of Payer with patient/family: Yes Payer Name: Medicare Umpire: No Confirmation of Primary Care Physician: Confirmed PCP Name: Yash Donald MD Seen in last 2 years?: Yes Primary Caregiver: Self If assistance needed, confirmed caregiver ready, willing and able to care for patient at discharge: Yes Confirmed with: Tanner Living Arrangements Current Residence: House Number of Floors 2 Number of Entry Steps: 3 Bed/Bath Levels: Both second floor Facility: Facility Name: Plan to Return: Lives with: Spouse/significant other, Children Support Systems: Spouse/significant other, Children Activities of Daily Living Ambulation: Independent Bathing/Dressing: Independent Elimination/Continence/Toileting: Independent Feeding: Independent Who Assists with Activities of Daily Living: Instrumental Activities of Daily Living Prescription Coverage: Yes Pharmacy Used: [facility] [place] Medication Management: Independent Transportation/Shopping: Independent Transportation Mode: Car Needs Assistance with Transportation at Discharge: Yes Meal Preparation: Independent Laundry/Cleaning: Independent Finances/Bill Paying: Independent Communication: Independent Types of Care Services/Equipment Utilized Care Services: Dialysis Type: Durable Medical Equipment: Patient's Goal/Discharge Plan Patient expects to be discharged to: home Discharge Planning Actions: Continue to follow Patient's Choice Rights and [employer] and Collaborative Relationships Disclosed as Indicated for Post-Acute Care: Interdisciplinary Team Engagement: Geriatric Assessment, PT/OT Social Work Referral for: Additional Information: Pt admitted s/p fall with tiny SDH. Introduced myself and role. Pt lives with and son. and son can provide assistance but pt will need a ride home. PT/OT pending. Will follow. [facility] [employer] 12-18-2024 Nurse Note Patient off of floor with Transport going to CT Scan [facility] [employer] 12-18-2024 Nurse Note Patient off of floor with Transport going to CT Scan documented in this encounter [employer] 12-17-2024 Plan of care note Problem: Pain - Adult Goal: Verbalizes/displays adequate comfort level or baseline comfort level Outcome: Progressing Problem: Safety - Adult Goal: Free from fall injury Outcome: Progressing Problem: Discharge Planning Goal: Discharge to home or other facility with appropriate resources Outcome: Progressing Problem: Potential for Falls Goal: I will remain free of falls Outcome: Progressing [employer] 12-17-2024 Note -------- Attestation signed by Jagjit Braga MD at 01/06/2025 11:08 AM ~~~~~~~~~~~~~~~~~~~~~~~~~~~~~~~~~~~~ ~~~~~~~~~~~~~~~~~~~~~~~ Attending physician addendum: I independently saw and evaluated the patient. I personally obtained the garland and critical portion of the history and physical exam. I reviewed and agree with the documentation below. I personally reviewed patient's labs and imaging studies. My findings agree with the below note except for any details corrected. A complete review of systems was obtained and is negative except as stated in HPI. I have examined the patient at the date below. Patient Active Problem List Diagnosis Benzodiazepine dependence (HCC) Opioid dependence with current use (HCC) Subdural hematoma (HCC) Per Dr Black's note. I have evaluated the patient on 12/17/24 HPI: 69 y.o. male sustained a mechanical (slipped on ice) ground level fall 2 days ago, + hit head, denies LOC Chief complain: headache Problem list: Left parafalcine SDH Hypothyroidism Hyperlipidemia HTN Procedures: none Management / Plan : Neuro / Spine: # Tiny acute parafalcine subdural heamtoma - Repeat CT head tomorrow 10AM - Neurosurgery consulted - Seizure ppx: not needed given fall was 2 days ago - Pain control: multimodal Currently pain 2/10 Tylenol 1g Q8 Gabepentin 300TID Robaxin 500 Q8 - Elevate HOB 30 degrees - Neuro checks q4hr for the first 12h and then Q8 for the next 12h Cardiovascular - Hypertention - BP Goal <150 SBP - Home losartan 40 BID - Labetalol/hydralazine prn - Telemetry Pulmonary - Standard O2 protocol - IS FEN/GI - regular diet - Zofran PRN - EMERGENCY DEPARTMENT DIRECTOR not needed at this time - Daily BMP, CBC, Mg - No acute issues - home tamsulosin started - Monitor I/Os - Goal UOP > 0.5 ml/kg/hr Endocrine - Home levothyroxine 25 started Heme - Hgb stable - No transfusions indicated ID - No acute issues - No antibiotics indicated Lines/Devices: - PIV Prophylaxis: DVT: SCDs Has DVT PPX been started? Yes If no, why? Patient with Acute Head Bleed Pressure Ulcer: Continue to monitor, q2 turns Musculoskeletal: #soreness posterior neck - robaxin 500 Q8 - PT/OT not needed at this time - All extremities with good ROM Level of Medical Decision Making: risk of morbidity from additional diagnostic testing or treatment due to TBI []High [x]Moderate []Low Personally Reviewed/Independently interpreted patient's: [x]Epic notes [x]Radiology studies [x]Labs []EKG []Ordering tests []Other Discussed/ With: [x]Patient/Family [x]RN [x]Consultants []SW/TCC []Other I spent total time of >= 55 minutes reviewing previous notes, test results, and face to face with Tanner Porter discussing the diagnosis and importance of compliance with the treatment plan as well as documenting on the day of the visit. Time was spent, Reviewing medical record including recent tests and results Ordering prescription medications/tests and procedures Communicating results to the patient/family/caregiver Counseling/educating the patient/family/caregiver Documenting clinical information the patient's electronic record Coordination of care for the patient Performing a medical appropriate exam and evaluation Marquise Braga MD FACS Trauma, Surgical Critical Care, & General Surgery Division of Trauma Department of Surgery [facility] -------- [facility] 12/17/2024 11:23 PM Trauma Attending: Dr. Braga Mechanism of Injury: Fall Mechanical Mechanism of Arrival:EMS Chief Complaint: neck soreness History of Traumatic Injury: 69 y.o. male status post fall onto concrete. The incident happened around 12/14/[address] at night. When the event happened the patient was grabbing something from the garage. Patient pain level currently is 0/10. Did the Patient have LOC?No C-collar in place on arrival? No Was the patient on an antiplatelet or anticoagulant medication? No If yes, which one? None Past Medical History: Diagnosis Date Arthritis Cancer (CMS/HCC) (HCC) colon Hyperlipidemia Hypertension Other disorders of kidney and ureter in diseases classified elsewhere Psychiatric problem Thyroid disease Past Surgical History: Procedure Laterality Date COLON SURGERY PROSTATE SURGERY seeds Family History Problem Relation Name Age of Onset No Known Problems Father No Known Problems Mother Social History Socioeconomic History Marital status: Spouse name: Not on file Number of children: Not on file Years of education: Not on file Highest education level: Not on file Occupational History Not on file Tobacco Use Smoking status: Never Smokeless tobacco: Not on file V (more content not included)... [facility] 05-22-2024 Telephone encounter Note I called and spoke with the patient and relayed message below from Katerine Gamboa. Patient verbalized understanding and states he will start the medication and call to schedule an appointment in about a month. No other questions or concerns at this time. [facility] 05-22-2024 Miscellaneous Notes I called and spoke with the patient and relayed message below from Katerine Gamboa. Patient verbalized understanding and states he will start the medication and call to schedule an appointment in about a month. No other questions or concerns at this time. Patient had to stop his Hyperbaric Oxygen therapy and want to start him on Myrbetriq 25 mg for urgency if he would like to help for nighttime urgency. Patient cost should be $5 at [facility] Please reach out to see if he would like to start Rx if its been sent And need to see him in 3 mo for follow-up if not already scheduled DAIANA Bernard MT, PA-C documented in this encounter [facility] 05-21-2024 Telephone encounter Note Patient had to stop his Hyperbaric Oxygen therapy and want to start him on Myrbetriq 25 mg for urgency if he would like to help for nighttime urgency. Patient cost should be $5 at [facility] Please reach out to see if he would like to start Rx if its been sent And need to see him in 3 mo for follow-up if not already scheduled DAIANA Bernard MT, PA-C [facility] 02-27-2024 Note HNO ID: [id number] Author: KATERINE GAMBOA PA-C Service: ? Author Type: Physician Track Grinder Operator Type: Progress Notes Filed: 02/27/2024 18:00 Note Text: [facility] NEW PATIENT CLINIC NOTE SERVICE DATE: 02/27/2024 SERVICE TIME: 2:34 PM NAME: Tanner Porter CHIEF COMPLAINT: Urinary Urgency HISTORY OF PRESENT ILLNESS: Tanner Porter is a 68 year old male presenting as an New Patient for urinary urgency and frequency at night The patient reports had CaP which was treated with Brachytherapy 2015 and has now started having the urgency and Nocturia May have radiation cystitis from brachytherapy, no hematuria However his pvr is 0 ml Discuss good hydration and Azo as needed And to look into hyperbaric Oxygen therapy Consult orders placed LUTS: DYSURIA: no URGENCY: Yes FREQUENCY:6 per day NOCTURIA: 4 per night STRAINING TO VOID: Yes EMPTIES COMPLETELY: Yes UTI: No GROSS HEMATURIA: no UA DIPSTICK POSITIVE ONLY: no Other symptoms: LABS: No results found for: TESTOST No results found for: TESTFREE PSA (ng/mL) Date Value 12/26/2019 <0.03 02/04/2019 0.04 10/18/2017 0.09 No results found for: HCT PSA (ng/mL) Date Value 12/26/2019 <0.03 02/04/2019 0.04 10/18/2017 0.09 05/10/2017 0.14 No results found for: CREAT MEDICATIONS: buprenorphine-nalOXone SL (SUBOXONE) 8-2 mg subl Takes 1/8 to a 1/4 tablet up to four times daily as needed pravastatin (PRAVACHOL) 40 mg tablet Take 40 mg by mouth once daily. levothyroxine (SYNTHROID) 25 mcg tablet Take 25 mcg by mouth daily before breakfast. gabapentin (NEURONTIN) 300 mg capsule Take 600 mg by mouth once daily as needed. naproxen (NAPROSYN) 500 mg tablet Take 500 mg by mouth once daily as needed. losartan (COZAAR) 25 mg tablet Take 25 mg by mouth once daily. And 50 MG by mouth at bedtime lactulose (DUPHALAC, CONSTULOSE) 10 gram/15 mL solution ondansetron (ZOFRAN) 4 mg tablet Take 4 mg by mouth as needed. PAST MEDICAL HISTORY: PAST MEDICAL HISTORY Diagnosis Date Adenocarcinoma of prostate (HCC) Benign paroxysmal positional vertigo Colon cancer (HCC) 2014 Degeneration of cervical intervertebral disc Depressive disorder, not elsewhere classified Essential hypertension, benign Generalized anxiety disorder Headache(784.0) Hypopotassemia Lyme disease pt reports that this was ruled out 07/14/16 Nocturia Other abnormal glucose Other malaise and fatigue Other specified disease of pancreas Prostate cancer (HCC) 2014 Urinary frequency PAST SURGICAL HISTORY: PAST SURGICAL HISTORY Procedure Laterality Date COLONOSCOPY 07/2015 Dr. Alvarado COLONOSCOPY FLX DX W/COLLJ SPEC WHEN PFRMD 07-18-16 PAST SURGICAL HISTORY OF 08/2015 partial colectomy, [place] PORTOCATH PLACEMENT 08/2015 [place], [place] FAMILY HISTORY: FAMILY HISTORY Problem Relation Age of Onset Hypertension Brother Ischemic Heart Disease Brother SOCIAL HISTORY: Social Connections: Not on file REVIEW OF SYSTEMS: GENERAL: No fever, chills, weight loss, or fatigue. ENMT: Negative CARDIOVASCULAR:NO CHEST PAIN, PALPITATIONS, ANKLE EDEMA RESPIRATORY: No chronic cough, wheezing, dyspnea, hemoptysis. GENITOURINARY: SEE HPI MUSCULOSKELETAL:NO CHRONIC BACK PAIN, ARTHRITIS, CHRONIC NECK PAIN SKIN: NO VARICOSE VEINS, RASH, ABNORMAL ITCHING HEME/LYMPH/IMMUNE:Negative for prolonged bleeding, bruising easily or swollen nodes NEUROLOGICAL: NO HEADACHES, NUMBNESS, SEIZURES, STROKE DIABETES: no All other systems reviewed and are negative PHYSICAL EXAMINATION: Blood pressure 136/90, pulse 84, temperature 36.6 ?C (97.8 ?F), temperature source Temporal, resp. rate 14, height 182.9 cm (6'), weight 106 kg (233 lb 9.6 oz), SpO2 97%. GENERAL: WNL nutrition, no deformities, healthy appearing NEURO: Awake, alert and oriented x 3 and Normal gait PSYCH: No signs of depression, anxiety, or agitation ENMT (Ear, Nose, Mouth, Throat): No masses, adenopathy, icterus. Thyroid nonpalpable RESP: NL effort, no retractions or purse-lip breathing. CV: No extremity swelling, varices, edema, pallor, erythema GASTROINTESTINAL: Soft, nontender, nondistended, no masses. HERNIAS: None SKIN: No rash, lesions No palpable lymphadenopathy MUSCULOSKELETAL: Extremities normal. No deformities, edema, clubbing or skin discoloration. PROBLEM LIST REVIEW: Yes LABS: Results for orders placed or performed in visit on 02/27/24 UA DIP, URINE (POC) Result Value Ref Range GLUCOSE UA (POCT) Negative Negative mg/dL BILIRUBIN UA (POCT) Negative Negative KETONE UA (POCT) Negative Negative mg/dL SPECIFIC GRAVITY UA (POCT) 1.025 1.005 - 1.030 HEMOGLOBIN/BLOOD UA (POCT) Negative Negative PH UA (POCT) 5.5 4.5 - 8.0 PROTEIN UA (POCT) Negative Negative mg/dL UROBILINOGEN UA (POCT) 0.2 Normal E.U./dL NITRITE UA (POCT) Negative Negative LEUKOCYTES UA (POCT) Trace (more content not included)... [facility] 02-27-2024 Note HNO ID: [id number] Author: SHIRLEY JARQUIN LPN Service: ? Author Type: LICENSED NURSE Type: Progress Notes Filed: 02/27/2024 18:00 Note Text: Verified name and date of . CC Post Void Residual HPI: Tanner Porter is a 68 year old male. The patient is here now for an appointment with DAIANA Bernard, JARVIS, MINI-AAYUSH. Procedure: Explained procedure to patient and verbalizes understanding. Performed a PVR. Patient urinated and instructed to empty bladder as much as possible just prior to having PVR done using bladder ultrasound scanner. Results of scan: 0 mL The patient tolerated the procedure well. Plan: Appointment with Katerine. [facility] 02-27-2024 Instructions Katerine Gamboa PA-C - 02/27/2024 2:57 PM EDT > AZO for urinary pain - OTC > Hyperbaric Oxygen Therapy for Radiation Cystitis > Consult placed documented in this encounter [facility] 02-27-2024 History of Present illness Narrative Images from the original note were not included. [facility] NEW PATIENT CLINIC NOTE SERVICE DATE: 02/27/2024 SERVICE TIME: 2:34 PM NAME: Tanner Porter CHIEF COMPLAINT: Urinary Urgency HISTORY OF PRESENT ILLNESS: Tanner Porter is a 68 year old male presenting as an New Patient for urinary urgency and frequency at night The patient reports had CaP which was treated with Brachytherapy 2015 and has now started having the urgency and Nocturia May have radiation cystitis from brachytherapy, no hematuria However his pvr is 0 ml Discuss good hydration and Azo as needed And to look into hyperbaric Oxygen therapy Consult orders placed LUTS: DYSURIA: no URGENCY: Yes FREQUENCY:6 per day NOCTURIA: 4 per night STRAINING TO VOID: Yes EMPTIES COMPLETELY: Yes UTI: No GROSS HEMATURIA: no UA DIPSTICK POSITIVE ONLY: no Other symptoms: LABS: No results found for: TESTOST No results found for: TESTFREE PSA (ng/mL) Date Value 12/26/2019 <0.03 02/04/2019 0.04 10/18/2017 0.09 No results found for: HCT PSA (ng/mL) Date Value 12/26/2019 <0.03 02/04/2019 0.04 10/18/2017 0.09 05/10/2017 0.14 No results found for: CREAT MEDICATIONS: buprenorphine-nalOXone SL (SUBOXONE) 8-2 mg subl Takes 1/8 to a 1/4 tablet up to four times daily as needed pravastatin (PRAVACHOL) 40 mg tablet Take 40 mg by mouth once daily. levothyroxine (SYNTHROID) 25 mcg tablet Take 25 mcg by mouth daily before breakfast. gabapentin (NEURONTIN) 300 mg capsule Take 600 mg by mouth once daily as needed. naproxen (NAPROSYN) 500 mg tablet Take 500 mg by mouth once daily as needed. losartan (COZAAR) 25 mg tablet Take 25 mg by mouth once daily. And 50 MG by mouth at bedtime lactulose (DUPHALAC, CONSTULOSE) 10 gram/15 mL solution ondansetron (ZOFRAN) 4 mg tablet Take 4 mg by mouth as needed. PAST MEDICAL HISTORY: PAST MEDICAL HISTORY Diagnosis Date Adenocarcinoma of prostate (HCC) Benign paroxysmal positional vertigo Colon cancer (HCC) 2014 Degeneration of cervical intervertebral disc Depressive disorder, not elsewhere classified Essential hypertension, benign Generalized anxiety disorder Headache(784.0) Hypopotassemia Lyme disease pt reports that this was ruled out 07/14/16 Nocturia Other abnormal glucose Other malaise and fatigue Other specified disease of pancreas Prostate cancer (HCC) 2014 Urinary frequency PAST SURGICAL HISTORY: PAST SURGICAL HISTORY Procedure Laterality Date COLONOSCOPY 07/2015 Dr. Alvarado COLONOSCOPY FLX DX W/COLLJ SPEC WHEN PFRMD 07-18-16 PAST SURGICAL HISTORY OF 08/2015 partial colectomy, [place] PORTOCATH PLACEMENT 08/2015 [place], [place] FAMILY HISTORY: FAMILY HISTORY Problem Relation Age of Onset Hypertension Brother Ischemic Heart Disease Brother SOCIAL HISTORY: Social Connections: Not on file REVIEW OF SYSTEMS: GENERAL: No fever, chills, weight loss, or fatigue. ENMT: Negative CARDIOVASCULAR:NO CHEST PAIN, PALPITATIONS, ANKLE EDEMA RESPIRATORY: No chronic cough, wheezing, dyspnea, hemoptysis. GENITOURINARY: SEE HPI MUSCULOSKELETAL:NO CHRONIC BACK PAIN, ARTHRITIS, CHRONIC NECK PAIN SKIN: NO VARICOSE VEINS, RASH, ABNORMAL ITCHING HEME/LYMPH/IMMUNE:Negative for prolonged bleeding, bruising easily or swollen nodes NEUROLOGICAL: NO HEADACHES, NUMBNESS, SEIZURES, STROKE DIABETES: no All other systems reviewed and are negative PHYSICAL EXAMINATION: Blood pressure 136/90, pulse 84, temperature 36.6 C (97.8 F), temperature source Temporal, resp. rate 14, height 182.9 cm (6'), weight 106 kg (233 lb 9.6 oz), SpO2 97%. GENERAL: WNL nutrition, no deformities, healthy appearing NEURO: Awake, alert and oriented x 3 and Normal gait PSYCH: No signs of depression, anxiety, or agitation ENMT (Ear, Nose, Mouth, Throat): No masses, adenopathy, icterus. Thyroid nonpalpable RESP: NL effort, no retractions or purse-lip breathing. CV: No extremity swelling, varices, edema, pallor, erythema GASTROINTESTINAL: Soft, nontender, nondistended, no masses. HERNIAS: None SKIN: No rash, lesions No palpable lymphadenopathy MUSCULOSKELETAL: Extremities normal. No deformities, edema, clubbing or skin discoloration. PROBLEM LIST REVIEW: Yes LABS: Results for orders placed or performed in visit on 02/27/24 UA DIP, URINE (POC) Result Value Ref Range GLUCOSE UA (POCT) Negative Negative mg/dL BILIRUBIN UA (POCT) Negative Negative KETONE UA (POCT) Negative Negative mg/dL SPECIFIC GRAVITY UA (POCT) 1.025 1.005 - 1.030 HEMOGLOBIN/BLOOD UA (POCT) Negative Negative PH UA (POCT) 5.5 4.5 - 8.0 PROTEIN UA (POCT) Negative Negative mg/dL UROBILINOGEN UA (POCT) 0.2 Normal E.U./dL NITRITE UA (POCT) Negative Negative LEUKOCYTES UA (POCT) Trace (A) Negative COLOR UA (POCT) Yellow CLARITY UA (POCT) Clear Urine Culture: Pending PROCEDURES: PVR: 0 ml IMAGING: IMPRESSION/PLAN: 68 year old male with 1. 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 History of prostate cancer - ICD9: V10.46, ICD10: Z85.46 3. Urinary frequency - ICD9: 788.41, ICD10: R35.0 4. Urinary hesitancy - ICD9: 788.64, ICD10: R39.11 5. Screening for genitourinary condition - ICD9: V81.6, ICD10: Z13.89 > Urine Culture - pending > May try AZO OTC for urgency > Consult for Hyperbaric Therapy placed > Follow-up in 3 months I spent a total of 30 minutes on the date of the service which included preparing to see the patient, face to face patient care, completing clinical documentation, obtaining and/or reviewing separately obtained history, performing a medically appropriate examination, counseling and educating the patient/family/caregiver, ordering medications, tests, or procedures, and care coordination. DAIANA Bernard MT, PA-C Verified name and date of . CC Post Void Residual HPI: Tanner Porter is a 68 year old male. The patient is here now for an appointment with DAIANA Bernard MT, PA-COV. Procedure: Explained procedure to patient and verbalizes understanding. Performed a PVR. Patient urinated and instructed to empty bladder as much as possible just prior to having PVR done using bladder ultrasound scanner. Results of scan: 0 mL The patient tolerated the procedure well. Plan: Appointment with Katerine. documented in this encounter [facility] Discharge summary Note Date/Time February 18, 2025 12:11am [facility] Medical Records Department [address] [place] [id number] Emergency Department Summary 02/18/25 MR#: [id number] Acct: [id number] Name: TANNER PORTER Rep #:[id number] : 1955 69 From: Luke Wallace MD PCP: Dr. Edwin Donald MD Status:REG E R Location: ED HPI History of Present Illness Chief Complaint: Hypertension Detail of Chief Complaint: Elevated blood pressure 180 systolic and head trauma Informant: patient Onset/Context/Timing Onset: Today (Patient was seen today. He did not mention to the doctor that he hit his head and has prior history of subdural hematoma) and Days (Head trauma acouple of days ago. Garage door struck him on the top of the head. He has had headache.) Context: Sudden Onset Timing: Continuous and Waxes and wanes Quality: Headache due to trauma Location: Vertex Current Severity: Mild Maximum Severity: Moderate Worsened by: Believes it is associated with his blood pressure readings. Relieved by: Nothing Associated Symptoms Associated Symptoms: Nothing Narrative Narrative: Patient is a 59-year-old male. He has history of hypertension, hypothyroidism and hypercholesterolemia who presents because of elevated blood pressure of systolic of 180. He states he was seen earlier today he did not mention to the doctor that saw him this morning that he hit his head and has a headache. states he has been forgetful since he hit his head. He has a history of a subdural hematoma due to a fall a couple of months ago. He denies double vision, blurred vision or loss of vision. He denies neck pain. Denies paresthesia, anesthesia or motor weakness. He denies cardiac or respiratory symptoms. He has not had minimal nausea. He said no vomiting or diarrhea. He denies being on any anticoagulant or antithrombotic. He states he has not missed any of his clonidine doses. He is also on losartan 50 mg twice daily. Prior similar symptoms: Yes (Subdural hematoma due to blunt trauma) Recent Illness/Hospitalization: Yes (Today in the emergency department) [facility] Medical History Anxiety Former smoker Pulmonary embolism Migraines Excessive daytime sleepiness Peripheral neuropathy Generalized weakness Degenerative cervical disc Hyperglycemia Hypophosphatemia Hypokalemia Vitamin D deficiency Myalgia Urinary frequency Vertigo Pulmonary embolism Hyperlipidemia Anxiety Prostate cancer Colon cancer HTN (hypertension) Home Medications ?Medication ?Instructions ?Recorded ?Last Taken ?Type pravastatin 40 mg tablet 40 mg PO QHS 01/16/18 History polyethylene glycol 3350 17 17 g PO DAILY 03/29/19 Unk nown History gram/dose oral powder multivitamin 1 tab PO DAILY 04/02/1901/26 History gabapentin 300 mg capsule 300 mg PO BIDCM PRN numbness and 04/22/20 02/16/25 History tingling levothyroxine 25 mcg tablet 25 mcg PO DAILY 04/07/24 0 02/16/25 History buprenorphine 8 mg-naloxone 2 mg 0.25 tab sublingual T ID 12/17/24 02/17/25 History sublingual tablet naproxen 500 mg tablet 500 mg PO BID PRN pain 12/17 Unknown History clonidine HCl 0.1 mg tablet 0.1 mg PO Q8H PRN hyperten sive 3 02/17/25 Unknown Rx days #9 tabs losartan 50 mg tablet 50 mg PO BID 02/17/25 History ondansetron HCl 4 mg tablet 4 mg PO Q6H PRN PRN nausea 02/17/25 Unknown History Allergy/AdvReac Type Severity Reaction Status Date / Time amlodipine Allergy Unknown Unknown Verified 02/17/25 19:59 Family History Brother Heart disease Myocardial infarction Surgical History s/p port placement History of colon resection Social History household members: significant other housing: house Smoking Status: Former smoker alcohol intake: never ROS ROS ED Constitutional Constitutional ED: Denies chills, fever(s), subjective, sweats or weight loss Eyes Eyes: Denies blurry vision, change in vision or diplopia ENT ENT ED: Denies ear pain or rhinorrhea Cardiovascular Cardiovascular: Denies chest pain or palpitations Respiratory/Chest Respiratory/Chest: Denies cough, dyspnea or dyspnea on exertion Gastrointestinal Gastrointestinal: Reports nausea; Denies abdominal pain, melena or vomiting Genitourinary Genitourinary ED: Denies dysuria, hematuria or urinary frequency Musculoskeletal Musculoskeletal: Denies back pain, myalgias or neck pain Integumentary Denies rash Neurologic Neurologic: Reports headache(s); Denies paresthesias or weakness Endocrine Endocrinology: Denies cold intolerance or heat intolerance Hematologic/Lymphatic Hematologic/Lymphatic: Reports systems reviewed and no addt'l complaints, exceptas documented EXAM Physical Exam Const Vital Signs: 02/17/25 19:55 02/17/25 20:51 02/17/25 20:55 Temperature 97.9 F Temperature Source Temporal Pulse Rate 92 Respiratory Rate 18 Respiratory Effort Normal Non-Labored Respiratory Pattern Normal Blood Pressure 179/96 H 170/96 H Blood Pressure Mean 123 120 Pulse Ox 98 Oxygen Delivery Method Room Air 02/17/25 21:33 02/17/25 23:00 Temperature Temperature Source Pulse Rate 64 Respiratory Rate 16 Respiratory Effort Respiratory Pattern Blood Pressure 156/95 H 139/84 H Blood Pressure Mean 115 102 Pulse Ox Oxygen Delivery Method Positive well nourished and well developed General Appearance ED: well developed and NAD; Negative for cyanotic, diaphoretic or pallor HEENT Reports TM's clear and moist mucous membranes HEENT Narrative: Patient has a contusion vertex of his head. No palp depression. No clinical signs of basilar skull fracture. Tympanic Membrane ED: Yes TM's clear Eyes PERRL and EOMs intact bilaterally General Eye ED: Negative for pale conjunctiva or scleral icterus Neck no lymphadenopathy, supple and no JVD Resp normal respiratory effort and clear to auscultation bilaterally Cardio regular rate, regular rhythm, S1 normal heart sound and S2 normal heart sound GI normal to inspection, nondistended, normoactive bowel sounds, non-tender and non-distended; Negative for hepatosplenomegaly Back/Spine no CVA tenderness Extremity normal to inspection Neuro oriented x3 and CN's II-XII intact bilaterally Sensorium / Orientation: alert Psych mental status grossly normal Skin no rashes or lesions noted, No no wounds and skin turgor normal General Skin Exam: elasticity normal; Negative for jaundice or pallor MDM MDM MDM Narrative Medical decision making narrative: In light of patient having traumatic subdural hematoma recently we will obtain CT of the head since he had head trauma with a garage door striking the top of his head. He is also forgetful. At the minimum he has a concussion. Per the [facility] CT head rule he does warrant a CAT scan. With regards to his blood pressure he was monitored and improved without treatment. In my opinion nothingneeds to be done. His most recent blood pressure reading is 139/84 without treatment. Radiography Diagnostic Testing: Clinical Impression(s) from Imaging Studies Brain CT 02/17/25 21:40 IMPRESSION: No acute intracranial abnormality. Reading Location: [facility] The CT of the head was independent reviewed by me. I agree there is no evidenceof subdural hematoma, epidural hematoma, subarachnoid hemorrhage or intraparenchymal contusion. There is no fluid noted in the sinuses. There is no evidence of fracture. Discharge Plan Triage Chief Complaint: Hypertension ED Provider: Luke Wallace Dx/Rx/DC Orders Clinical Impression: Concussion with loss of consciousness, HTN (hypertension), Hyperlipidemia, Headache Instructions: ED Head Injury (Adult) Prescriptions: No Action polyethylene glycol 3350 17 gram/dose powder 17 g PO DAILY multivitamin tablet 1 tab PO DAILY pravastatin 40 MG tablet 40 mg PO QHS gabapentin 300 MG capsule 300 mg PO BIDCM PRN (Reason: numbness and tingling) levothyroxine 25 mcg tablet 25 mcg PO DAILY naproxen 500 mg tablet 500 mg PO BID PRN (Reason: pain) buprenorphine-naloxone 8-2 mg tablet, sublingual 0.25 tab sublingual TID losartan 50 mg tablet 50 mg PO BID ondansetron HCl 4 mg tablet 4 mg PO Q6H PRN PRN (Reason: nausea) clonidine HCl 0.1 mg tablet 0.1 mg PO Q8H PRN (Reason: hypertensive ) 3 Days Qty: 9 0RF Rx Instructions: Take this if systolic blood pressure is greater than 175 Primary Care Provider: Edwin Donald Chi Referrals: Edwin Donald Chi, MD [Primary Care Provider] - 1-2 Weeks Activity Restrictions/Additional Instructions: Recommend make an appointment with Dr. Donald to have your blood pressure reassessed and possible adjustment of your meds in 1 to 2 weeks. Print Language: Burmese Disposition Disposition: Home, Self Care What to do if you have Problems For any increased pain, shortness of breath, bleeding, nausea or vomiting, chestpain, or any unexpected problems, contact your Primary Care Provider. Call [facility] ([phone]) or report to the closest Emergency Room. Call 911 if necessary. 02/18/25 0011 <Electronically signed by Luke Wallace MD> Cosigner Signature (if applicable): CC: Dr. Edwin Donald MD ~ Signed [facility] Work Phone: evaluation noteNo assessment information available [facility] Work Phone: evaluation note* Diagnosis Onset Date Resolution Status History of colon cancer in adulthood chronic [facility] Work Phone: Evaluation note* Diagnosis Onset Date Resolution Status History of colon cancer in adulthood chronic Sebaceous cyst acute [facility] Work Phone: Evaluation note* Diagnosis Radiation cystitis- Primary Irradiation cystitis History of prostate cancer Personal history of malignant neoplasm of prostate Urinary frequency Urinary hesitancy Screening for genitourinary condition Screening for other and unspecified genitourinary condition documented in this encounter [facility] note* Diagnosis 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 documented in this encounter [facility] note* Diagnosis 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 documented in this encounter [facility] note* Diagnosis 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 documented in this encounter [facility] note* Diagnosis 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 documented in this encounter [facility] note* Diagnosis 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 documented in this encounter [facility] note* Diagnosis 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 documented in this encounter [facility] note* Diagnosis 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 documented in this encounter [facility] note* Diagnosis 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 documented in this encounter [facility] note* Diagnosis 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 documented in this encounter [facility] note* Diagnosis 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 documented in this encounter [facility] note* Diagnosis 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 documented in this encounter [facility] note* Diagnosis 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 documented in this encounter [facility] note* Diagnosis 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 documented in this encounter [facility] note* Diagnosis 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 documented in this encounter [facility] note* Diagnosis 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 documented in this encounter [facility] note* Diagnosis 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 documented in this encounter [facility] note* Diagnosis 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 documented in this encounter [facility] note* Diagnosis 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 documented in this encounter [facility] note* Diagnosis 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 documented in this encounter [facility] note* Diagnosis Urgency of urination- Primary documented in this encounter [facility] note* Diagnosis Subdural hematoma (HCC)- Primary Subdural hemorrhage Subdural hematoma (HCC) Subdural hemorrhage Fall, initial encounter documented in this encounter [facility] note* Diagnosis Subdural hematoma (HCC) Subdural hemorrhage documented in this encounter [facility] note* Diagnosis SDH (subdural hematoma) (HCC)- Primary Subdural hemorrhage documented in this encounter [facility] Discharge instructions Additional Instructions Call your primary care physician in the morning to let them know about your blood pressure. Return back to the ED if symptoms change or worsen. Continue to monitor your blood pressure at home.[facility] Work Phone: Hospital Discharge instructions Additional Instructions Recommend make an appointment with Dr. Donald to have your blood pressure reassessed and possible adjustment of your meds in 1 to 2 weeks.[facility] Work Phone: Hospital Discharge instructions Additional Instructions Please take the valsartan in the morning and begin taking the clonidine twice a day. Take the metoprolol at bedtime. This may help regulate your blood pressure without severe fluctuations. Please only check your blood pressure once a day. Follow-up with your family doctor to discuss this plan of care and for potential medication refill. Return to the ER should you have any further concerns[facility] Work Phone: Hospital Discharge instructions Additional Instructions CT brain negative today. Cardiac workup negative. Follow-up with your PCP for your chest pain symptoms. Follow-up with neurology for new migraine symptoms with previous intracranial hemorrhage.[facility] Work Phone: Instructions* Name Dates Details Patient Instructions Indication:Hypertension Start:03-Apr-2015 Instruction Type:Provider Instructions for Treatment Patient Instructions Indication:Muscle cramp Start:27-Oct-2014 Instruction Type:Provider Instructions for Treatment Patient Instructions Indication:Malaise Start:04-Aug-2014 Instruction Type:Provider Instructions for Treatment How to access health informa tion online Indication:Nausea Start:08-Jul-2014 Instruction Type:Patient Education How to access health informa tion online - Detail Indication:Nausea Start:08-Jul-2014 Instruction Type:Patient Education Patient Instructions Indication:Nausea Start:08-Jul-2014 Instruction Type:Provider Instructions for Treatment How to access health informa tion online Indication:Nausea Start:01-Jul-2014 Instruction Type:Patient Education How to access health informa tion online - Detail Indication:Nausea Start:01-Jul-2014 Instruction Type:Patient Education Patient Instructions Indication:Nausea Start:01-Jul-2014 Instruction Type:Provider Instructions for Treatment Patient Instructions Indication:Hypertension Start:12-Mar-2014 Instruction Type:Provider Instructions for Treatment Patient Instructions Indication:Hypokalemia Start:25-Feb-2014 Instruction Type:Provider Instructions for Treatment [facility] Work Phone: reason for referral (narrative)No reason for referral information availableWMorrow County Hospital Work Phone: Reason for visit Narrative* Auth/Cert (Routine) Specialty Diagnoses / Procedures Referred By Conttyrese t Referred To Contact Diagnoses Subdural hematoma (HCC) Traumatic Brain Injury Procedures . Jagjit Braga MD [address] [place] [id number] Phone: tel: fax: [facility] [address]U [address] [place] [address] Phone: tel: Referral ID Status Reason Start Date Expiration Date Visits Re quested Visits Authorized [id number] [facility] N[facility]* Imaging (Routine) - Closed Specialty Diagnoses / Procedures Referred By Chriss kyle Referred To Contact Radiology Diagnoses Subdural hematoma (HCC) Procedures CT head wo IV contrast Edna Villasenor, ONLINE MARKETING ANALYST - DIRECTOR OF USER EXPERIENCE [address] [place] [address] Phone: tel: fax: Referral ID Status Reason Start Date Expiration Date Visits Re quested Visits Authorized [id number] Closed 12/18/2024 12/18/2025 1 1 [facility] Summary Purpose Family History Unknown Family Member Name Dates Details Father Comments: at 87- CVA - 85 Status:Active Heart Disease Comments:Brother Status:Active Hypertension Comments:Brother, and cardio vascular Status:Active Mother Comments:still living, healt hy Status:Active Relationship Condition Age at Onset Recorded Date/T michelle brother Cardiac disease Unknown Myocardial infarction Unknown Advance Directives Advance Directive Response Recorded Date/ Time Advance Directives No October 11:04am Living Will No September 20 1:34pm Power of Airline Mechanic No September 20, 2018 1:34pm Advance Directive Response Recorded Date/ Time Advance Directives No October 10:04am Living Will No September 20 12:34pm Power of Airline Mechanic No September 20, 2018 12:34pm Advance Directive Response Recorded Date/ Time Advance Directives No October 10:04am Living Will No September 04 8:31pm Power of Airline Mechanic No September 04 023 8:31pm Advance Directive Response Recorded Date/ Time Advance Directives No October 11:04am Living Will No April 07, 2024 1 2:22am Power of Airline Mechanic No April 07, 2024 12:22am Date Activated Date Inactivated Comments 12/17/2024 10:47 PM 12/18/2024 5:14 PM Date Activated Date Inactivated Comments 12/17/2024 10:47 PM 12/18/2024 5:14 PM Advance Directive Response Recorded Date/ Time Living Will No December 02 12:55pm Do you have a Healthcare Power of Airline Mechanic? No December 02, 2024 12:55pm Living Will No December 17 7:36pm Do you have a Healthcare Power of Airline Mechanic? No December 17, 2024 7:36pm Living Will No January 08, 2 025 3:36pm Do you have a Healthcare Power of Airline Mechanic? No January 08, 2025 3:36pm Living Will No February 17, 2025 10:45am Do you have a Healthcare Power of Airline Mechanic? No February 17, 2025 10:45am Advance Directives No October 11:04am Advance Directive Response Recorded Date/ Time Living Will No December 02 12:55pm Do you have a Healthcare Power of Airline Mechanic? No December 02, 2024 12:55pm Living Will No December 17 7:36pm Do you have a Healthcare Power of Airline Mechanic? No December 17, 2024 7:36pm Living Will No January 08, 2 025 3:36pm Do you have a Healthcare Power of Airline Mechanic? No January 08, 2025 3:36pm Living Will No February 17, 2025 10:45am Do you have a Healthcare Power of Airline Mechanic? No February 17, 2025 10:45am Living Will No February 17, 2025 8:51pm Do you have a Healthcare Power of Airline Mechanic? No February 17, 2025 8:51pm Advance Directives No October 11:04am Advance Directive Response Recorded Date/ Time Living Will No December 02 12:55pm Do you have a Healthcare Power of Airline Mechanic? No December 02, 2024 12:55pm Living Will No December 17 7:36pm Do you have a Healthcare Power of Airline Mechanic? No December 17, 2024 7:36pm Living Will No January 08 025 3:36pm Do you have a Healthcare Power of Airline Mechanic? No January 08, 2025 3:36pm Living Will No February 27, 2025 3:37am Do you have a Healthcare Power of Airline Mechanic? No February 27, 2025 3:37am Living Will No February 17, 2025 10:45am Do you have a Healthcare Power of Airline Mechanic? No February 17, 2025 10:45am Living Will No February 17, 2025 8:51pm Do you have a Healthcare Power of Airline Mechanic? No February 17, 2025 8:51pm Advance Directives No October 11:04am Advance Directive Response Recorded Date/ Time Living Will No January 08 025 3:36pm Do you have a Healthcare Power of Airline Mechanic? No January 08, 2025 3:36pm Living Will No February 27, 2025 3:37am Do you have a Healthcare Power of Airline Mechanic? No February 27, 2025 3:37am Living Will No February 17, 2025 10:45am Do you have a Healthcare Power of Airline Mechanic? No February 17, 2025 10:45am Living Will No February 17, 2025 8:51pm Do you have a Healthcare Power of Airline Mechanic? No February 17, 2025 8:51pm Do you have a Healthcare Power of Airline Mechanic? No April 20, 2025 2:57pm Advance Directives No October 11:04am Chief Complaint and Reason for Visit Chief Complaint EORDER Chief Complaint CSCOPE HISTORY OF CA NCER CYST ON BACK Removal Reason for Visit History of colon can cer in adulthood Chief Complaint CSCOPE HISTORY OF CA NCER CYST ON BACK Removal SUTURE REMOVAL Reason for Visit History of colon can cer in adulthood Sebaceous cyst Chief Complaint NEED DR FILIPE MICHAELS Chief Complaint HIGH BP Chief Complaint hypertension Chief Complaint Admit Date SOB December 02, 2024 11 :41am FALL December 17, 2024 5 :16pm Head injury January 08, 2025 2:28pm HYPERTENSION February 17, 2025 10: 32am Chief Complaint Admit Date SOB December 02, 2024 11 :41am FALL December 17, 2024 5 :16pm Head injury January 08, 2025 2:28pm HYPERTENSION February 17, 2025 10: 32am htn February 17, 2025 7:5 4pm Chief Complaint Admit Date SOB December 02, 2024 11 :41am FALL December 17, 2024 5 :16pm Head injury January 08, 2025 2:28pm HYPERTENSION February 17, 2025 10: 32am htn February 17, 2025 7:5 4pm HYPERTENSION February 27, 2025 3:35 am Chief Complaint Admit Date Head injury January 08, 2025 2:28pm HYPERTENSION February 17, 2025 10: 32am htn February 17, 2025 7:5 4pm HYPERTENSION February 27, 2025 3:35 am CP April 20, 2025 2:21p m Additional Source Comments (unrecognized sect ion and content) No Status Records FoundNo Status Records FoundNo Status Records FoundNo Status Records FoundNo Status Records FoundNo Status Records Found INFORMATION SOURCE (unrecogn ized section and content) DATE CREATED AUTHOR 05/22/2018 [facility] DATE CREATED AUTHOR AUTHOR'S ORGANIZ ATION 11/05/2018 [facility] DATE CREATED AUTHOR AUTHOR'S ORGANIZ ATION 02/28/2024 [facility] DATE CREATED AUTHOR AUTHOR'S ORGANIZ ATION 05/22/2024 [facility] DATE CREATED AUTHOR AUTHOR'S ORGANIZ ATION 01/07/2025 [facility] DATE CREATED AUTHOR AUTHOR'S ORGANIZ ATION 08/12/2025 [facility] Goals (unrecognized section and content) Goals may be documented in a n alternate sectionGoals may be documented in an alternate sectionGoals may be documented in an alternate sectionGoals may be documented in an alternate sectionGoals may be documented in an alternate sectionGoals may be documented in an alternate sectionGoals may be documented in an alternate sectionGoals may be documented in an alternate sectionGoals may be documented in an alternate section Care Teams (unrecognized sec tion and content) Team Status: Active Member Role Status Dates Dr. Edwin Donald MD Family Provider Active Dr. Edwin Donald MD Primary Care Provider Active Team Status: Inactive Member Role Status Dates Dr. Edwin Donald MD Primary Care Provi mia, Attending Provider, Referring Provider Active Dr. Kevan Srinivasan MD Other Provider Active Team Status: Inactive Member Role Status Dates Dr. Edwin Donald MD Primary Care Provider Active Dr. Benita Peoples MD Attending Provider, Emergency Provider Active Team Status: Inactive Member Role Status Dates Dr. Edwin Donald MD Primary Care Provider, Attending Provider Active Installer Technician Relationship Specialty Start Date End Date Edwin Donald Chi PCP - General Gerontology 04/11/16 Deyvi Rocha MD [address] [facility] [address] Physician Radiation Oncology 07/12/16 Installer Technician Relationship Specialty Start Date End Date Edwin Donald Chi PCP - General Gerontology 04/11/16 Deyvi Rocha MD [address] [place] [address] Physician Radiation Oncology 07/12/16 Installer Technician Relationship Specialty Start Date End Date Edwin Donald Chi PCP - General Gerontology 04/11/16 Deyvi Rocha MD [address] [place] [address] Physician Radiation Oncology 07/12/16 Installer Technician Relationship Specialty Start Date End Date Edwin Donald Sharan PCP - General Gerontology 04/11/16 Deyvi Rocha MD [address] [place] [address] Physician Radiation Oncology 07/12/16 Installer Technician Relationship Specialty Start Date End Date Odilon Edwin Blanton PCP - General Gerontology 04/11/16 Deyvi Rocha MD [address] [place] [address] Physician Radiation Oncology 07/12/16 Installer Technician Relationship Specialty Start Date End Date OdilonEdwin garza Chi PCP - General Gerontology 04/11/16 Deyvi Rocha MD [address] [place] [address] Physician Radiation Oncology 07/12/16 Installer Technician Relationship Specialty Start Date End Date Edwin Donald Chi PCP - General Gerontology 04/11/16 Deyvi Rocha MD [address] [place] [address] Physician Radiation Oncology 07/12/16 Team Status: Inactive Member Role Status Dates Dr. Edwin Donald MD Primary Care Provider Active Dr. Ravindra Delgado DO Emergency Provider Active Installer Technician Relationship Specialty Start Date End Date OdilonEdwin garza Chi PCP - General Gerontology 04/11/16 Deyvi Rocha MD [address] [place] [address] Physician Radiation Oncology 07/12/16 Installer Technician Relationship Specialty Start Date End Date Edwin Donald Chi PCP - General Gerontology 04/11/16 Deyvi Rocha MD [address] [place] [address] Physician Radiation Oncology 07/12/16 Installer Technician Relationship Specialty Start Date End Date Edwin Donald Sharan PCP - General Gerontology 04/11/16 Deyvi Rocha MD [address] [place] [address] Physician Radiation Oncology 07/12/16 Installer Technician Relationship Specialty Start Date End Date Odilon Edwin Blanton PCP - General Gerontology 04/11/16 Deyvi Rocha MD [address] [place] [address] Physician Radiation Oncology 07/12/16 Installer Technician Relationship Specialty Start Date End Date Odilon Edwin Blanton PCP - General Gerontology 04/11/16 Deyvi Rocha MD [address] [place] [address] Physician Radiation Oncology 07/12/16 Installer Technician Relationship Specialty Start Date End Date Odilon Edwin Blanton PCP - General Gerontology 04/11/16 Deyvi Rocha MD [address] [place] [address] Physician Radiation Oncology 07/12/16 Installer Technician Relationship Specialty Start Date End Date Edwin Donald Chi PCP - General Gerontology 04/11/16 Deyvi Rocha MD [address] [place] [address] Physician Radiation Oncology 07/12/16 Installer Technician Relationship Specialty Start Date End Date Odilon, Edwin Blanton PCP - General Gerontology 04/11/16 Deyvi Rocha MD [address] [place] [address] Physician Radiation Oncology 07/12/16 Installer Technician Relationship Specialty Start Date End Date Odilon Edwin Blanton PCP - General Gerontology 04/11/16 Deyvi Rocha MD [address] [place] [address] Physician Radiation Oncology 07/12/16 Installer Technician Relationship Specialty Start Date End Date Odilon Edwin Blanton PCP - General Gerontology 04/11/16 Deyvi Rocha MD [address] [place] [address] Physician Radiation Oncology 07/12/16 Installer Technician Relationship Specialty Start Date End Date Edwin Donald Chi PCP - General Gerontology 04/11/16 Deyvi Rocha MD [address] [place] [address] Physician Radiation Oncology 07/12/16 Installer Technician Relationship Specialty Start Date End Date Edwin Donald Chi PCP - General Gerontology 04/11/16 Deyvi Rocha MD [address] [place] [address] Physician Radiation Oncology 07/12/16 Installer Technician Relationship Specialty Start Date End Date Edwin Donald Chi PCP - General Gerontology 04/11/16 Deyvi Rocha MD [address] [place] [address] Physician Radiation Oncology 07/12/16 Installer Technician Relationship Specialty Start Date End Date Yash Donald MD [address] [place] [address] PCP - General 10/25/18 Installer Technician Relationship Specialty Start Date End Date Yash Donald MD [address] [place] [address] PCP - General 10/25/18 Installer Technician Relationship Specialty Start Date End Date Yash Donald MD [address] [place] [address] PCP - General 10/25/18 Installer Technician Relationship Specialty Start Date End Date Yash Donald MD [address] [place] [address] PCP - General 10/25/18 Installer Technician Relationship Specialty Start Date End Date Yash Donald MD [address] [place] [address] PCP - General 10/25/18 Team Status: Active Member Role Status Dates Dr. Edwin Donald MD Primary Care Provider Active Team Status: Inactive Member Role Status Dates Dr. Edwin Donald MD Primary Care Provider Active Start: December 02, 2024 End: December 02, 2024 Dr. Ravindra Delgado DO Attending Provider Active Start: December 02, 2024 End: December 02, 2024 Dr. Ravindra Delgado DO Emergency Provider Active Start: December 02, 2024 End: December 02, 2024 Team Status: Inactive Member Role Status Dates Dr. Edwin Donald MD Primary Care Provider Active Start: December 03, 2024 End: December 03, 2024 Dr. Edwin Donald MD Attending Provider Active Start: December 03, 2024 End: December 03, 2024 Team Status: Inactive Member Role Status Dates Dr. Edwin Donald MD Primary Care Provider Active Start: December 17, 2024 End: December 17, 2024 Dr. Tanner Mcduffie DO Attending Provider Active Start: December 17, 2024 End: December 17, 2024 Dr. Tanner Mcduffie DO Emergency Provider Active Start: December 17, 2024 End: December 17, 2024 Team Status: Inactive Member Role Status Dates Dr. Edwin Donald MD Primary Care Provider Active Start: January 08, 2025 End: January 08, 2025 Dr. Jose Francisco Lieberman DO Attending Provider Active Start: January 08, 2025 End: January 08, 2025 Dr. Jose Francisco Lieberman DO Referring Provider Active Start: January 08, 2025 End: January 08, 2025 Dr. Jose Francisco Lieberman DO Emergency Provider Active Start: January 08, 2025 End: January 08, 2025 Team Status: Inactive Member Role Status Dates Dr. Edwin Donald MD Primary Care Provider Active Start: February 17, 2025 End: February 17, 2025 Dr. Willy Esteban DO Referring Provider Activ e Start: February 17, 2025 End: February 17, 2025 Dr. Willy Esteban DO Emergency Provider Activ e Start: February 17, 2025 End: February 17, 2025 Team Status: Inactive Member Role Status Dates Dr. Edwin Donald MD Primary Care Provider Active Start: February 17, 2025 End: February 18, 2025 Dr. Luke Wallace MD Emergency Provider Active Sta rt: February 17, 2025 End: February 18, 2025 Team Status: Inactive Member Role Status Dates Dr. Edwin Donald MD Primary Care Provider Active Start: February 17, 2025 End: February 17, 2025 Dr. Willy Esteban DO Attending Provider Activ e Start: February 17, 2025 End: February 17, 2025 Dr. Willy Esteban DO Referring Provider Activ e Start: February 17, 2025 End: February 17, 2025 Dr. Willy Esteban DO Emergency Provider Activ e Start: February 17, 2025 End: February 17, 2025 Team Status: Inactive Member Role Status Dates Dr. Edwin Donald MD Primary Care Provider Active Start: February 17, 2025 End: February 18, 2025 Dr. Luke Wallace MD Attending Provider Active Sta rt: February 17, 2025 End: February 18, 2025 Dr. Luke Wallace MD Emergency Provider Active Sta rt: February 17, 2025 End: February 18, 2025 Team Status: Inactive Member Role Status Dates Dr. Edwin Donald MD Primary Care Provider Active Start: February 27, 2025 End: February 27, 2025 Dr. Jaison Márquez DO Emergency Provider Active Start: February 27, 2025 End: February 27, 2025 Team Status: Inactive Member Role Status Dates Dr. Edwin Donald MD Primary Care Provider Active Start: February 27, 2025 End: February 27, 2025 Dr. Jaison Márquez DO Attending Provider Active Start: February 27, 2025 End: February 27, 2025 Dr. Jaison Márquez DO Emergency Provider Active Start: February 27, 2025 End: February 27, 2025 Team Status: Inactive Member Role Status Dates Dr. Edwin Donald MD Primary Care Provider Active Start: April 20, 2025 End: April 20, 2025 Dr. Santos Montoya DO Emergency Provider Active Start : April 20, 2025 End: April 20, 2025 Installer Technician Relationship Specialty Start Date End Date Edwin Donald Chi PCP - General Gerontology 04/11/16 Deyvi Rocha MD [address] [place] [address] Physician Radiation Oncology 07/12/16 Source Comments (unrecognize d section and content) In the event this informatio n is protected by the Federal Confidentiality of Alcohol and Drug Abuse Patient Records regulations: The Federal rules restrict any use of the information to criminally investigate or prosecute any alcohol or drug abuse patient.[facility]In the event this information is protected by the Federal Confidentiality of Alcohol and Drug Abuse Patient Records regulations: The Federal rules restrict any use of the information to criminally investigate or prosecute any alcohol or drug abuse patient.[facility] CenterIn the event this information is protected by the Federal Confidentiality of Alcohol and Drug Abuse Patient Records regulations: The Federal rules restrict any use of the information to criminally investigate or prosecute any alcohol or drug abuse patient.[facility] CenterIn the event this information is protected by the Federal Confidentiality of Alcohol and Drug Abuse Patient Records regulations: The Federal rules restrict any use of the information to criminally investigate or prosecute any alcohol or drug abuse patient.[facility] CenterIn the event this information is protected by the Federal Confidentiality of Alcohol and Drug Abuse Patient Records regulations: The Federal rules restrict any use of the information to criminally investigate or prosecute any alcohol or drug abuse patient.[facility] CenterIn the event this information is protected by the Federal Confidentiality of Alcohol and Drug Abuse Patient Records regulations: The Federal rules restrict any use of the information to criminally investigate or prosecute any alcohol or drug abuse patient.[facility] CenterIn the event this information is protected by the Federal Confidentiality of Alcohol and Drug Abuse Patient Records regulations: The Federal rules restrict any use of the information to criminally investigate or prosecute any alcohol or drug abuse patient.[facility] CenterIn the event this information is protected by the Federal Confidentiality of Alcohol and Drug Abuse Patient Records regulations: The Federal rules restrict any use of the information to criminally investigate or prosecute any alcohol or drug abuse patient.[facility] CenterIn the event this information is protected by the Federal Confidentiality of Alcohol and Drug Abuse Patient Records regulations: The Federal rules restrict any use of the information to criminally investigate or prosecute any alcohol or drug abuse patient.[facility] CenterIn the event this information is protected by the Federal Confidentiality of Alcohol and Drug Abuse Patient Records regulations: The Federal rules restrict any use of the information to criminally investigate or prosecute any alcohol or drug abuse patient.[facility] CenterIn the event this information is protected by the Federal Confidentiality of Alcohol and Drug Abuse Patient Records regulations: The Federal rules restrict any use of the information to criminally investigate or prosecute any alcohol or drug abuse patient.[facility] CenterIn the event this information is protected by the Federal Confidentiality of Alcohol and Drug Abuse Patient Records regulations: The Federal rules restrict any use of the information to criminally investigate or prosecute any alcohol or drug abuse patient.[facility] CenterIn the event this information is protected by the Federal Confidentiality of Alcohol and Drug Abuse Patient Records regulations: The Federal rules restrict any use of the information to criminally investigate or prosecute any alcohol or drug abuse patient.[facility] CenterIn the event this information is protected by the Federal Confidentiality of Alcohol and Drug Abuse Patient Records regulations: The Federal rules restrict any use of the information to criminally investigate or prosecute any alcohol or drug abuse patient.[facility] CenterIn the event this information is protected by the Federal Confidentiality of Alcohol and Drug Abuse Patient Records regulations: The Federal rules restrict any use of the information to criminally investigate or prosecute any alcohol or drug abuse patient.[facility] CenterIn the event this information is protected by the Federal Confidentiality of Alcohol and Drug Abuse Patient Records regulations: The Federal rules restrict any use of the information to criminally investigate or prosecute any alcohol or drug abuse patient.[facility] CenterIn the event this information is protected by the Federal Confidentiality of Alcohol and Drug Abuse Patient Records regulations: The Federal rules restrict any use of the information to criminally investigate or prosecute any alcohol or drug abuse patient.[facility] CenterIn the event this information is protected by the Federal Confidentiality of Alcohol and Drug Abuse Patient Records regulations: The Federal rules restrict any use of the information to criminally investigate or prosecute any alcohol or drug abuse patient.[facility] CenterIn the event this information is protected by the Federal Confidentiality of Alcohol and Drug Abuse Patient Records regulations: The Federal rules restrict any use of the information to criminally investigate or prosecute any alcohol or drug abuse patient.[facility] CenterIn the event this information is protected by the Federal Confidentiality of Alcohol and Drug Abuse Patient Records regulations: The Federal rules restrict any use of the information to criminally investigate or prosecute any alcohol or drug abuse patient.[facility] CenterIn the event this information is protected by the Federal Confidentiality of Alcohol and Drug Abuse Patient Records regulations: The Federal rules restrict any use of the information to criminally investigate or prosecute any alcohol or drug abuse patient.[facility] CenterIn the event this information is protected by the Federal Confidentiality of Alcohol and Drug Abuse Patient Records regulations: The Federal rules restrict any use of the information to criminally investigate or prosecute any alcohol or drug abuse patient.[facility] CenterIn the event this information is protected by the Federal Confidentiality of Alcohol and Drug Abuse Patient Records regulations: The Federal rules restrict any use of the information to criminally investigate or prosecute any alcohol or drug abuse patient.[facility] CenterIn the event this information is protected by the Federal Confidentiality of Alcohol and Drug Abuse Patient Records regulations: The Federal rules restrict any use of the information to criminally investigate or prosecute any alcohol or drug abuse patient.[facility] CenterIn the event this information is protected by the Federal Confidentiality of Alcohol and Drug Abuse Patient Records regulations: The Federal rules restrict any use of the information to criminally investigate or prosecute any alcohol or drug abuse patient.[facility] CenterIn the event this information is protected by the Federal Confidentiality of Alcohol and Drug Abuse Patient Records regulations: The Federal rules restrict any use of the information to criminally investigate or prosecute any alcohol or drug abuse patient.[facility] CenterIn the event this information is protected by the Federal Confidentiality of Alcohol and Drug Abuse Patient Records regulations: The Federal rules restrict any use of the information to criminally investigate or prosecute any alcohol or drug abuse patient.[facility] CenterIn the event this information is protected by the Federal Confidentiality of Alcohol and Drug Abuse Patient Records regulations: The Federal rules restrict any use of the information to criminally investigate or prosecute any alcohol or drug abuse patient.[facility] CenterIn the event this information is protected by the Federal Confidentiality of Alcohol and Drug Abuse Patient Records regulations: The Federal rules restrict any use of the information to criminally investigate or prosecute any alcohol or drug abuse patient.[facility] CenterIn the event this information is protected by the Federal Confidentiality of Alcohol and Drug Abuse Patient Records regulations: The Federal rules restrict any use of the information to criminally investigate or prosecute any alcohol or drug abuse patient.[facility] CenterIn the event this information is protected by the Federal Confidentiality of Alcohol and Drug Abuse Patient Records regulations: The Federal rules restrict any use of the information to criminally investigate or prosecute any alcohol or drug abuse patient.[facility] CenterIn the event this information is protected by the Federal Confidentiality of Alcohol and Drug Abuse Patient Records regulations: The Federal rules restrict any use of the information to criminally investigate or prosecute any alcohol or drug abuse patient.[facility] CenterIn the event this information is protected by the Federal Confidentiality of Alcohol and Drug Abuse Patient Records regulations: The Federal rules restrict any use of the information to criminally investigate or prosecute any alcohol or drug abuse patient.[facility] CenterIn the event this information is protected by the Federal Confidentiality of Alcohol and Drug Abuse Patient Records regulations: The Federal rules restrict any use of the information to criminally investigate or prosecute any alcohol or drug abuse patient.[facility] CenterIn the event this information is protected by the Federal Confidentiality of Alcohol and Drug Abuse Patient Records regulations: The Federal rules restrict any use of the information to criminally investigate or prosecute any alcohol or drug abuse patient.[facility] CenterIn the event this information is protected by the Federal Confidentiality of Alcohol and Drug Abuse Patient Records regulations: The Federal rules restrict any use of the information to criminally investigate or prosecute any alcohol or drug abuse patient.[facility] CenterIn the event this information is protected by the Federal Confidentiality of Alcohol and Drug Abuse Patient Records regulations: The Federal rules restrict any use of the information to criminally investigate or prosecute any alcohol or drug abuse patient.[facility] CenterIn the event this information is protected by the Federal Confidentiality of Alcohol and Drug Abuse Patient Records regulations: The Federal rules restrict any use of the information to criminally investigate or prosecute any alcohol or drug abuse patient.[facility] CenterIn the event this information is protected by the Federal Confidentiality of Alcohol and Drug Abuse Patient Records regulations: The Federal rules restrict any use of the information to criminally investigate or prosecute any alcohol or drug abuse patient.[facility] CenterIn the event this information is protected by the Federal Confidentiality of Alcohol and Drug Abuse Patient Records regulations: The Federal rules restrict any use of the information to criminally investigate or prosecute any alcohol or drug abuse patient.[facility] CenterIn the event this information is protected by the Federal Confidentiality of Alcohol and Drug Abuse Patient Records regulations: The Federal rules restrict any use of the information to criminally investigate or prosecute any alcohol or drug abuse patient.[facility] Reason for Visit (unrecogniz ed section and content) Reason Comments Urinary Frequency Urinary Urgency New Patient Reason Comments Wound Care Reason Comments Patient Update Orders Reason Onset Date Comments Reschedule 12/19/2024 Reason Comments Follow-up Patient present for CT head follow up. Patient had a fall in November which resulted in SDH. Patient reports improvement in headaches, no new blurry vision. Scheduled Active and Recently Administ ered Medications (unrecognized section and content) Medication Order 12/16/2024 12/17/2024 12/18/2024 acetaminophen (Tylenol) tablet 1,000 mg 1,000 mg, Oral, Every 8 hours, First dose (after last modification) on Mon12/18/24 at 0700 0945 (Given - Provid er: Alan Draper RN - Comment: Patient requested medication to be moved to later time)1401 (Given - Provider: Alan Draper RN) acetaminophen (Tylenol) tablet 650 mg (CANCELED) 650 mg, Oral, Every 6 hours, First dose on Mon12/17/24 at 2300 0011 (Given - Provid er: Camryn Stephens RN) gabapentin (Neurontin) capsule 300 mg 300 mg, Oral, 3 times daily, First dose on Mon12/17/24 at 2300 0011 (Given - Provid er: Camryn Stephens RN)0945 (Given - Provider: Alan Draper RN)1401 (Given - Provider: Alan Draper RN) levothyroxine (Synthroid, Levoxyl) tablet 25 mcg 25 mcg, Oral, Daily before breakfast, First dose on Mon12/18/24 at 0600, Tube feeding (TF) interaction, obtain physician order to manage, recommend holding TF for 30 minutes before and after dose. 0514 (Given - Provid er: Camryn Stephens RN) losartan (Cozaar) tablet 50 mg 50 mg, Oral, 2 times daily, First dose (after last modification) on Mon12/18/24 at 0900 0945 (Given - Provid er: Alan Draper RN) methocarbamol (Robaxin) tablet 500 mg 500 mg, Oral, Every 8 hours scheduled (3 times per day), First dose on Mon12/18/24 at 0045 0045 (Not Given - Pr ovider: Camryn Stephens RN - Reason: Patient/family refused)0514 (Given - Provider: Camryn Stephens RN)1401 (Given - Provider: Alan Draper RN) pravastatin (Pravachol) tablet 40 mg 40 mg, Oral, Nightly, First dose on Mon12/17/24 at 2300 0011 (Given - Provid er: Camryn Stephens RN) sodium chloride 0.9% (NS) flush 5-40 mL 5-40 mL, IntraVENous, Every 12 hours, First dose on Mon12/17/24 at 2300, For Line Patency: Peripheral IV = 5 mL; Midline or Central Line = 10 mL/lumen. If following IV push medication, administer flush at same rate as the IV push. Flush volume is determined by type of infusion therapy being given. For non-viscous solutions use: Peripheral IV = 5 mL Midline or Central Line = 10 mL/lumen For viscous solutions (i.e. blood components, parenteral nutrition, contrast media, or after obtaining blood sample) use: Peripheral IV = 10 mL Midline or Central Line = 20 mL/lumen 0012 (Given - Provid er: Camryn Stephens RN)1100 (Not Given - Provider: Alan Draper RN - Reason: Other) tamsulosin (Flomax) 24 hr capsule 0.4 mg 0.4 mg, Oral, Nightly, First dose on Mon12/17/24 at 2330, Do not crush, chew, or split. 0011 (Given - Provid er: Camryn Stephens RN) PRN Medication Order 12/16/2024 12/17/2024 12/18/2024 buprenorphine-naloxone (Suboxone) 8-2 MG per sublingual film 0.25 Film 0.25 Film, SubLINGual, 4 times daily PRN, 4 times daily as needed, Starting on Mon12/18/24 at 0000 0945 (Given - Provid er: Alan Draper RN) hydrALAZINE (Apresoline) injection 10 mg 10 mg, IntraVENous, Every 4 hours PRN, high blood pressure, Second line, give for blood pressure greater than 160 hold for heart greater than 100 bpm, Starting on Mon12/17/24 at 2248 labetalol (Normodyne,Trandate) injection 10 mg 10 mg, IntraVENous, Every 4 hours PRN, high blood pressure, First line, give for blood pressure greater than 160 hold for heart rate less than 60 bpm, Starting on Mon12/17/24 at 2248 naloxone (Narcan) injection 0.4 mg 0.4 mg, IntraVENous, Every 5 min PRN, opioid reversal, respiratory depression, Starting on Mon12/17/24 at 2250, +++ For RR <10, pinpoint pupils, over sedation for opioid reversal - MUST notify operations and maintenance technican provider immediately after first dose, may give IM or SQ if no IV access +++ ondansetron (Zofran) injection 4 mg(Linked Group 1) 4 mg, IntraVENous, Every 6 hours PRN, nausea, vomiting, Starting on Mon12/17/24 at 2245, 1st Line. Give IV if patient is unable to take orally. If inadequate response within 60 minutes, proceed to next-line agent or contact provider if no further options ordered. ondansetron ODT (Zofran-ODT) disintegrating tablet 4 mg(Linked Group 1) 4 mg, Oral, Every 8 hours PRN, nausea, vomiting, Starting on Mon12/17/24 at 2245, 1st Line. If inadequate response within 60 minutes, proceed to next-line agent or contact provider if no further options ordered. Patient should allow tablet to dissolve on tongue. Do not remove from blister pack until just before administering. oxyCODONE (Roxicodone) immediate release tablet 10 mg(Linked Group 2) 10 mg, Oral, Every 4 hours PRN, severe pain (7-10), Starting on Mon12/17/24 at 2245 oxyCODONE (Roxicodone) immediate release tablet 5 mg(Linked Group 2) 5 mg, Oral, Every 4 hours PRN, moderate pain (4-6), Starting on Mon12/17/24 at 2245 sodium chloride 0.9 % infusion 5-250 mL/hr, IntraVENous, PRN, if patient receiving piggyback infusions and maintenance fluids are not ordered OR KVO fluids to protect IV site / prevent frequent line interruptions / long duration, Starting on Mon12/17/24 at 2245, For piggyback infusion, administer at same rate as piggyback for a total of 25 mL. Enter 25 mL into dose field and piggyback rate into rate field of order. If piggyback is infusing at a rate less than 100 mL/hr, enter 25 mL into dose field and 100 mL/hr into rate field of order. For KVO fluids, enter rate of 20 mL/hr or less into rate field of order. sodium chloride 0.9% (NS) flush 5-40 mL 5-40 mL, IntraVENous, PRN, line care, After every IV line use, Starting on Mon12/17/24 at 2245, For Line Patency: Peripheral IV = 5 mL; Midline or Central Line = 10 mL/lumen. If following IV push medication, administer flush at same rate as the IV push. Flush volume is determined by type of infusion therapy being given. For non-viscous solutions use: Peripheral IV = 5 mL Midline or Central Line = 10 mL/lumen For viscous solutions (i.e. blood components, parenteral nutrition, contrast media, or after obtaining blood sample) use: Peripheral IV = 10 mL Midline or Central Line = 20 mL/lumen Linked Groups Order Group 1: ondansetron ODT (Zofran-ODT) disintegrating tablet 4 mgJump to med 4 mg, Oral, Every 8 hours PRN, nausea, vomiting, Starting on Mon12/17/24 at 2245, 1st Line. If inadequate response within 60 minutes, proceed to next-line agent or contact provider if no further options ordered. Patient should allow tablet to dissolve on tongue. Do not remove from blister pack until just before administering. Or ondansetron (Zofran) injection 4 mgJump to med 4 mg, IntraVENous, Every 6 hours PRN, nausea, vomiting, Starting on Mon12/17/24 at 2245, 1st Line. Give IV if patient is unable to take orally. If inadequate response within 60 minutes, proceed to next-line agent or contact provider if no further options ordered. Group 2: oxyCODONE (Roxicodone) immediate release tablet 5 mgJump to med 5 mg, Oral, Every 4 hours PRN, moderate pain (4-6), Starting on Mon12/17/24 at 2245 Or oxyCODONE (Roxicodone) immediate release tablet 10 mgJump to med 10 mg, Oral, Every 4 hours PRN, severe pain (7-10), Starting on Mon12/17/24 at 2245 FOR RECORDS PERTAINING TO PATIENTS WHO ARE OR HAVE BEEN ENROLLED IN A CHEMICAL DEPENDENCY/SUBSTANCEABUSE PROGRAM, SOME INFORMATION MAY BE OMITTED. This clinical summary was aggregated from multiple sources. Caution should be exercised in using it in the provision of clinical care. This summary normalizes information from multiple sources, and as a consequence, information in this document may materially change the coding, format and clinical context of patient data. In addition, data may be omitted in some cases. CLINICAL DECISIONS SHOULD BE BASED ON THE PRIMARY CLINICAL RECORDS. [facility] [employer] [facility]. provides no warranty or guarantee of the accuracy or completeness of information in this document.
[2025-08-13 00:42] LABS: Mucous, Urine 0 SEEN /hpf (<or=2+); Squamous Epithelial Cells - UA 0 SEEN /hpf (0-5)
[2025-08-13 00:43] LABS: Color, Urine Red (Yellow); Glucose, Dipstick Normal (Normal); Ketone-Dipstick Negative (Negative); Leukocyte Esterase-Dipstick Negative /ul (Negative); Nitrite-Dipstick Positive (Negative); Occult Blood-Urine 150 /ul (Negative); Protein-Dipstick 30 mg/dl (Negative); Specific Gravity, Urine 1.020 (1.002-1.030)
[2025-08-13 00:55] LABS: Urine Bilirubin Dipstick 6 mg/dL (Negative)
[2025-08-13 01:00] LABS: Red Blood Cells-Urine 10-25 SEEN /hpf (0-5); Transitional Epithelial - Ur 0-5 SEEN /hpf (0-5)
[2025-08-13 01:04] VITALS: BP 214/88; PULSE 60; RESP 18; TEMP 36.3; O2SAT 96
[2025-08-13 01:35] VITALS: BP 170/75
== END 2025-08-13 01:35 | disposition home or self-care (01) ==
PROVIDERS: Emergency Provider Emergency Medicine; PCP Family Medicine Geriatric Medicine; Visit Provider Emergency Medicine
DX: R33.9 Retention of urine, unspecified (principal); N40.1 Benign prostatic hyperplasia with lower urinary tract symptoms; Z87.891 Personal history of nicotine dependence
CPT/HCPCS: 51702; 81001; 87086; 99283

== ENCOUNTER 2025-08-27 00:29 | Emergency (ER) | payer MEDICARE, MEDICAID, SELFPAY ==
[2025-08-27 00:30] VITALS: BP 170/88; PULSE 85; RESP 18; TEMP 37.1; O2SAT 97; BMI 32.2
[2025-08-27] MEDS: Lidocaine Jelly 2% 20 ML Syringe (URO-JET) 1 APPLIC TOPICAL (00:59)
[2025-08-27 01:19] LABS: Color, Urine Yellow (Yellow); Glucose, Dipstick Normal (Normal); Ketone-Dipstick Negative (Negative); Leukocyte Esterase-Dipstick 25 /ul (Negative); Nitrite-Dipstick Negative (Negative); Occult Blood-Urine 25 /ul (Negative); Protein-Dipstick 30 mg/dl (Negative); Specific Gravity, Urine 1.015 (1.002-1.030); Urine Bilirubin Dipstick Negative (Negative)
[2025-08-27 01:35] LABS: Mucous, Urine 1+ /hpf (<or=2+); Red Blood Cells-Urine 5-10 SEEN /hpf (0-5); Squamous Epithelial Cells - UA 0-5 SEEN /hpf (0-5)
--- NOTE | 2025-08-27 02:00 | EX.ED.DYSGE1 ---
HPI History of Present Illness Chief Complaint: Complaint Detail of Chief Complaint: Unable to urinate this evening after Alvarez was discontinued this afternoon Informant: patient Onset/Context/Timing Onset: Today and Hours Context: Sudden Onset Timing: Continuous Quality: Inability to urinate and suprapubic discomfort Location: Current Severity: Moderate Maximum Severity: Severe Worsened by: Palpation of the suprapubic area Relieved by: Nothing Associated Symptoms Associated Symptoms: No other symptoms Narrative Narrative: Patient is a 70-year-old male. He had a Alvarez placed approximately 2 weeks ago because of urinary retention. His urologist is Dr. Damon who is affiliated with the [facility]. Patient denies fever, chills night sweats. Patient denies scrotal pain or swelling. Patient denies penile lesions or discharge. He does have a history of cancer involving the colon and prostate. Prior similar symptoms: Yes Recent Illness/Hospitalization: Yes [facility] Medical History History of urinary retention Brain bleed Vitamin B12 deficiency BPH (benign prostatic hyperplasia) Subdural hematoma Opioid dependence Anxiety Migraines Peripheral neuropathy Degenerative cervical disc Hyperglycemia Vitamin D deficiency Myalgia Vertigo Hyperlipidemia Prostate cancer Colon cancer HTN (hypertension) Home Medications ?Medication ?Instructions ?Recorded ?Last Taken ?Type pravastatin 40 mg tablet 40 mg PO QHS 01/16/18 02/17/25 History polyethylene glycol 3350 17 17 g PO DAILY 03/29/19 Unknown History gram/dose oral powder multivitamin 1 tab PO DAILY 04/02/19 02/17/25 History gabapentin 300 mg capsule 300 mg PO BIDCM PRN numbness and 04/22/20 02/16/25 History tingling levothyroxine 25 mcg tablet 25 mcg PO DAILY 04/07/24 02/16/25 History clonidine HCl 0.1 mg tablet 0.1 mg PO Q8H PRN hypertensive 3 02/17/25 Unknown Rx days #9 tabs clonidine HCl 0.1 mg tablet 0.1 mg PO BID 14 days #28 tabs 02/27/25 Unknown Rx ondansetron 4 mg disintegrating 4 mg PO Q8H PRN PRN Nausea #10 tabs 04/20/25 Unknown Rx tablet valsartan 320 mg tablet 320 mg PO QHS 05/05/25 Unknown History buprenorphine 8 mg-naloxone 2 mg 0.25 tab sublingual QDAY 06/09/25 Unknown History sublingual tablet cephalexin 500 mg capsule 500 mg PO Q12 #14 CAPSULES 08/13/25 Unknown Rx cephalexin 500 mg capsule 500 mg PO Q6 #28 CAPSULES 08/27/25 Unknown Rx tamsulosin 0.4 mg capsule (Flomax) 0.4 mg PO QHS #30 caps 08/27/25 Unknown Rx Allergy/AdvReac Type Severity Reaction Status Date / Time amlodipine Allergy Unknown Unknown Verified 08/27/25 00:30 Family History Brother Heart disease Myocardial infarction Surgical History s/p port placement History of colon resection Social History household members: significant other housing: house Smoking Status: Former smoker alcohol intake: never ROS ROS ED Constitutional Constitutional ED: Denies chills, fever(s), subjective or sweats Eyes Eyes: Denies blurry vision or change in vision Cardiovascular Cardiovascular: Denies chest pain or palpitations Respiratory/Chest Respiratory/Chest: Denies cough, dyspnea or dyspnea on exertion Gastrointestinal Gastrointestinal: Reports abdominal pain; Denies constipation, diarrhea, nausea or vomiting Genitourinary Genitourinary ED: Reports other Details: Inability urinate otherwise negative Musculoskeletal Musculoskeletal: Denies back pain Integumentary Denies rash EXAM Physical Exam Const Vital Signs: 08/27/25 00:30 Temperature 98.7 F Temperature Source Oral Pulse Rate 85 Respiratory Rate 18 Blood Pressure 170/88 H Blood Pressure Mean 115 Pulse Ox 97 Oxygen Delivery Method Room Air Positive well nourished and well developed Constitutional Narrative: patient appears uncomfortable. Vital signs revealed elevated blood pressure General Appearance ED: well developed; Negative for cyanotic, diaphoretic or pallor HEENT Reports moist mucous membranes HEENT Narrative: HEENT is grossly unremarkable. Eyes PERRL and EOMs intact bilaterally General Eye ED: Negative for pale conjunctiva or scleral icterus Resp normal respiratory effort Cardio regular rate and regular rhythm GI normal to inspection, nondistended, normoactive bowel sounds, non-distended and no masses; Negative for non-tender or hepatosplenomegaly GI Narrative: There is tenderness in the suprapubic area otherwise unremarkable. Narrative: External genitalia normal. Extremity normal to inspection Neuro oriented x3 and CN's II-XII intact bilaterally Sensorium / Orientation: alert Psych Mood & Affect: depressed Skin no rashes or lesions noted, no wounds and skin turgor normal General Skin Exam: Negative for jaundice or pallor MDM MDM MDM Narrative Medical decision making narrative: Suspect patient has urinary retention. He is not on Flomax. Will have nurse placed Alvarez since he has greater than 300 cc and assess for infection. History & Record Review Additional record(s) reviewed:: Prior outpatient record (Outpatient oncology visit authored by Dr. Marcellus Cobos was reviewed. This was authored on June 09, 2025.), Prior ED visit (Seen by Dr. Kanchan celestin for benign prostatic hyperplasia on August 12. Alvarez was placed at that time.) and Prior labs Lab Data Attestation: I reviewed the patient's lab results. Lab results narrative: Urinalysis reveals protein, occult blood, leukoesterase and negative for nitrites. Microscopic reveals 5-10 WBCs 5-10 RBCs and 2+ bacteria. Labs: Laboratory Results - last 24 hr 08/27/25 01:10 Urine Color Yellow Urine Clarity Clear Urine pH 6.5 Ur Specific [place] 1.015 Urine Protein 30 H Urine Glucose (UA) Normal Urine Ketones Negative Urine Occult Blood 25 H Urine Nitrite Negative Urine Bilirubin Negative Urine Urobilinogen Normal Ur Leukocyte Esterase 25 H Urine RBC 5-10 SEEN Urine WBC 0-5 SEEN Ur Squamous Epith Cells 0-5 SEEN Amorphous Sediment 2+ Urine Bacteria 2+ Urine Mucus 1+ Treatment and Re-Evaluation :: Patient reports improvement after placement of Alvarez. Since his urine has bacteria in it we will send culture and treat with antibiotics. He has no allergies to antibiotics. Since there is a significant reaction with trimethoprim/sulfamethoxazole patient was treated with cephalexin. Will send culture. Discharge Plan Triage Chief Complaint: Complaint ED Provider: Luke Wallace Dx/Rx/DC Orders Clinical Impression: Acute urinary retention, Bacteriuria, Benign prostatic hyperplasia (BPH) with straining on urination, HTN (hypertension), Prostate cancer, Catheter-associated urinary tract infection Instructions: ED Urinary Retention, Male, ED Urinary Tract Infections in Men Prescriptions: New tamsulosin [Flomax] 0.4 mg capsule 0.4 mg PO QHS Qty: 30 0RF cephalexin 500 mg capsule 500 mg PO Q6 Qty: 28 0RF No Action polyethylene glycol 3350 17 gram/dose powder 17 g PO DAILY multivitamin tablet 1 tab PO DAILY valsartan 320 mg tablet 320 mg PO QHS pravastatin 40 MG tablet 40 mg PO QHS gabapentin 300 MG capsule 300 mg PO BIDCM PRN (Reason: numbness and tingling) levothyroxine 25 mcg tablet 25 mcg PO DAILY buprenorphine-naloxone 8-2 mg tablet, sublingual 0.25 tab sublingual QDAY clonidine HCl 0.1 mg tablet 0.1 mg PO BID 14 Days Qty: 28 0RF cephalexin 500 mg capsule 500 mg PO Q12 Qty: 14 0RF clonidine HCl 0.1 mg tablet 0.1 mg PO Q8H PRN (Reason: hypertensive ) 3 Days Qty: 9 0RF Rx Instructions: Take this if systolic blood pressure is greater than 175 ondansetron 4 mg tablet,disintegrating 4 mg PO Q8H PRN PRN (Reason: Nausea) Qty: 10 0RF Primary Care Provider: Edwin Donald Chi Referrals: Edwin Donald Chi, MD [Primary Care Provider, Geriatrics] Omari Damon PA [[facility] Professional, Urology] - 5-7 Days Print Language: Macanese Disposition Disposition: Home, Self Care
[2025-08-27 02:18] VITALS: BP 137/73; PULSE 68; RESP 18; TEMP 36.6; O2SAT 96
--- NOTE | 2025-08-27 02:18 | ED.RN ---
This RN went to discharge the patient. The patient states, well are you going to put this on my leg so I can pull up my pants? This RN explained that the salas bag can be put through his pants and attached to his belt loop until he gets home and can hang it properly to sleep. This RN further explained that we have leg bags that he can wear during the day to attach that to his leg in order to wear his pants properly. The patient states well last time I was here they put this bag (picking up the salas bag) on my leg. So, why can you not just strap this one on. This RN explained to the patient that the salas bag does not have a strap to attach to the patient's leg. This RN further educated the patient on the leg bag and how to use it. However, the patient states well I need you to use the straps that they used before to put the salas bag onto my leg. This RN explained to the patient that we did not have any straps to attach the patient's salas bag onto the patient's leg but we have the leg bags that the patient can use during the day. The patient got frustrated with this RN and this RN attempted to educate the patient again on the difference between the leg bag having straps and the salas bag not having any straps and the patient states, I don't understand because you guys did it the last time so I don't understand why you cannot do it again tonight. This RN asked if the patient would like the leg bag applied now and the patient stated no, I want this one (picking up the salas bag) attached to my leg, like you did last time. This RN further explained that this RN could not attach the salas bag to the patient's leg but this RN showed the patient how to attach the patient's salas in order to walk out of the ED with his pants on. The patient stated, I am just frustrated and I don't understand why you cannot help me and ambulated out of the department.
== END 2025-08-27 02:25 | disposition home or self-care (01) ==
PROVIDERS: Emergency Provider Emergency Medicine; PCP Family Medicine Geriatric Medicine; Visit Provider Emergency Medicine
DX: T83.511A Infection and inflammatory reaction due to indwelling urethral catheter, initial encounter (principal); C61 Malignant neoplasm of prostate; Z87.891 Personal history of nicotine dependence; R33.8 Other retention of urine; N40.1 Benign prostatic hyperplasia with lower urinary tract symptoms; I10 Essential (primary) hypertension; R82.71 Bacteriuria; E78.5 Hyperlipidemia, unspecified; Y73.8 Miscellaneous gastroenterology and urology devices associated with adverse incidents, not elsewhere classified
CPT/HCPCS: 51702; 81001; 87086; 99283

== ENCOUNTER 2025-10-06 08:46 | Emergency (ER) | payer MEDICARE, MEDICAID, SELFPAY ==
[2025-10-06] VITALS (8 sets, daily range): BP systolic 121–146; BP diastolic 71–89; PULSE 52–87; RESP 11–22; TEMP 36.2–36.6; O2SAT 95–100; BMI 34.3
--- NOTE | 2025-10-06 09:02 | CT_ITS ---
PROCEDURE: CTA CHEST W/WO CONTRAST 10/06/2025 REASON FOR EXAM: CHEST PAIN,SOB, RECENT SURGERY TECHNIQUE: Procedure Code: [id number] Modality: CT Procedure: CTA CHEST W/WO CONTRAST Multiplanar Sagittal and Coronal images were obtained. 3D post processing was performed CONTRAST: Isovue 370 VOLUME: 95th mL One or more dose reduction techniques were used (e.g., Automated exposure control, adjustment of the mA and/or kV according to patient size, use of iterative reconstruction technique). RADIATION DOSE SUMMARY: CTDlvol: 20 mGy DLP: 566 mGycm COMPARISON: May 06, 2025, April 20, 2025 # of known CTs in the past 12 months: 0 # of known Cardiac Nuclear Medicine Studies in the past 12 months: 0 FINDINGS: Thoracic Aorta: Mild atherosclerotic plaque without aneurysm. Bovine arch is present, a normal variant. Heart: Heart is normal size. No pericardial effusion. Mild coronary artery atherosclerosis left anterior descending. Pulmonary Vessels: Timing and quality of the contrast bolus is diagnostic at the main, central, interlobar, proximal and mid segmental vessels. No pulmonary embolus is seen there. The distal segmental and subsegmental vessels are limited in contrast density; embolus cannot be included or excluded there. Hardware: None Lymph nodes: None appear enlarged Lungs and Airways: Punctate granuloma superior segment right lower lobe. No consolidation. No mass. No worrisome nodule. Pleura: Scant pleural fluid. Upper Abdomen: Small sliding hiatus hernia. Bones: Marginal spurring lower thoracic spine. CT/CTA Chest W/WO Contrast IMPRESSION: 1. No evidence of pulmonary embolus. Limitation of the distal segmental and s ubsegmental vessels. 2. Coronary artery disease. Reading Location: [id number]
--- NOTE | 2025-10-06 09:02 | EKG12_ITS ---
Test Reason : CHEST PAIN Blood Pressure : */* mmHG Vent. Rate : 78 BPM Atrial Rate : 78 BPM P-R Int : 188 ms QRS Dur : 84 ms QT Int : 368 ms P-R-T Axes : 44 21 37 degrees QTcB Int : 419 ms Normal sinus rhythm Normal ECG Confirmed by Nick Cooper ([id number]), website/blog editor ORION SINCLAIR ([id number]) on 10/07/2025 11:49:25 AM Referred By: Confirmed By: Nick Cooper
--- NOTE | 2025-10-06 09:06 | EX.ED.DYSGE1 ---
HPI History of Present Illness Chief Complaint: Shortness of Breath Narrative Narrative: Patient is a 70-year-old male with past medical history of BPH, subdural hematoma, anxiety, peripheral neuropathy, hyperlipidemia, hypertension who presented to the emergency department chief complaint of indigestion and pain on the right side of his chest. He states that he had a procedure done on Monday for his prostate and he states that the last time he had surgery approximately 10 years ago he developed a blood clot in his lungs and is concerned that he has 1 today. He states that he developed a lot of indigestion that was severe prompting him to come here for further evaluation management. Patient states he is not on any blood thinning medications currently. He states that he is having some blood in his urine but he was told that this is normal status post the procedure. Denies any sick contacts [facility] Medical History History of urinary retention Brain bleed Vitamin B12 deficiency BPH (benign prostatic hyperplasia) Subdural hematoma Opioid dependence Anxiety Migraines Peripheral neuropathy Degenerative cervical disc Hyperglycemia Vitamin D deficiency Myalgia Vertigo Hyperlipidemia Prostate cancer Colon cancer HTN (hypertension) Home Medications ?Medication ?Instructions ?Recorded ?Last Taken ?Type pravastatin 40 mg tablet 40 mg PO QHS 01/16/18 10/05/25 History polyethylene glycol 3350 17 17 g PO DAILY 03/29/19 10/05/25 History gram/dose oral powder multivitamin 1 tab PO DAILY 04/02/19 02/17/25 History gabapentin 300 mg capsule 300 mg PO BIDCM PRN numbness and 04/22/20 02/16/25 History tingling levothyroxine 25 mcg tablet 25 mcg PO DAILY 04/07/24 10/05/25 History valsartan 320 mg tablet 320 mg PO QHS 05/05/25 10/05/25 History buprenorphine 8 mg-naloxone 2 mg 0.25 tab sublingual QDAY 06/09/25 10/05/25 History sublingual tablet acetaminophen 500 mg capsule 1,000 mg PO Q6H PRN fever or pain 10/06/25 10/05/25 History alfuzosin 10 mg tablet,extended 10 mg PO QHS 10/06/25 10/05/25 History release 24 hr hydralazine 25 mg tablet 25 mg PO TID 10/06/25 10/06/25 History metoprolol succinate 50 mg 50 mg PO DAILY 10/06/25 10/05/25 History tablet,extended release 24 hr pantoprazole 40 mg tablet,delayed 40 mg PO DAILY #30 tabs 10/06/25 Unknown Rx release Allergy/AdvReac Type Severity Reaction Status Date / Time amlodipine Allergy Unknown Unknown Verified 10/06/25 08:49 Family History Brother Heart disease Myocardial infarction Surgical History s/p port placement History of colon resection Social History household members: significant other housing: house Smoking Status: Former smoker alcohol intake: never ROS ROS ED ROS Narrative Constitutional: Denies any fevers, chills, headaches Cardiovascular: Denies chest pain or palpitations complains of indigestion type symptoms as noted above Respiratory: Denies shortness of breath Abdomen: Complains of nausea denies vomiting, diarrhea denies black stools denies blood in stool : Denies urinary symptoms Neurological: Denies any numbness, weakness, tingling Musculoskeletal: Denies back pain Skin: Denies any rashes or lesions EXAM Physical Exam Narrative Exam Narrative: General: Patient was lying in bed rest comfortably did not appear to be in acute distress Head: Atraumatic, normocephalic Eyes: PERRL bilaterally, EOMI bilaterally, no conjunctival injection noted Neck: Soft, supple, trachea midline Cardiovascular: Regular rate and rhythm Respiratory: Clear to auscultation bilaterally Abdomen: Soft, nondistended, nontender to palpation Extremities: +4/5 strength noted in the bilateral upper and lower extremities Neurological: Patient following commands knew that he was at [facility] 2024 Skin: Warm, dry, intact no rashes or lesions noted Const Vital Signs: 10/06/25 08:47 10/06/25 09:02 10/06/25 09:05 Temperature 97.2 F L Temperature Source Temporal Pulse Rate 83 Respiratory Rate 22 H Respiratory Effort Short of Breath Respiratory Depth Normal Respiratory Pattern Normal Blood Pressure 146/85 H Blood Pressure Mean 105 Pulse Ox 97 Oxygen Delivery Method Room Air Room Air Room Air 10/06/25 09:47 10/06/25 11:00 10/06/25 12:00 Temperature Temperature Source Pulse Rate 55 L 53 L 52 L Respiratory Rate 14 14 11 L Respiratory Effort Respiratory Depth Respiratory Pattern Blood Pressure 125/89 H 128/89 H 136/75 H Blood Pressure Mean 101 102 95 Pulse Ox 95 97 95 Oxygen Delivery Method Room Air Room Air MDM MDM MDM Narrative Medical decision making narrative: Patient is a 70-year-old male who presented to the emergency department with a chief complaint of concern for a pulmonary embolism. On the differential diagnose includes but not limited to pulmonary embolism, ACS, pneumonia, pneumothorax. Once workup is obtained and reviewed he will be reevaluated. Patient CBC reviewed and showed no evidence leukocytosis white blood count normal 6.8, hemoglobin 14.2, platelet count of 226. Patient INR normal 1, PT of 13.1. Patient sodium is 140, Tessman 3.7, creatinine 0.90. Patient's troponin was 7 with a delta troponin of 8 proBNP normal at 71. Patient's EKG reviewed showed sinus rhythm with a rate of 78 bpm NM interval 188. Patient CTA chest was reviewed and showed no evidence of PE coronary artery disease noted. Patient ambulated well here in the emergency department no hypoxia no tachycardia. Discussed results with the patient he is feeling better he states that his symptoms really only occur at night around 10 to 11:00 PM he states that he is not on anything for acid reflux currently he will be given Protonix here in the emergency department and will be placed on Protonix with prescription given. He was advised to return with worsening symptoms or concerns. He is advised follow-up his doctor outpatient setting. He is advised to watch what he eats and when he eats it prior to going to bed as this will likely exacerbate his symptoms. Lab Data Labs: Laboratory Results - last 24 hr 10/06/25 10/06/25 09:00 11:05 WBC 6.8 RBC 4.91 Hgb 14.2 Hct 42.5 MCV 86.6 MCH 28.9 MCHC 33.4 RDW Std Deviation 40.4 RDW Coeff of Megha 12.9 Plt Count 226 MPV 9.8 Immature Gran % (Auto) 0.300 Neut % (Auto) 49.7 Lymph % (Auto) 38.5 [place] % (Auto) 6.4 Eos % (Auto) 4.2 Baso % (Auto) 0.9 Absolute Neuts (auto) 3.4 Absolute Lymphs (auto) 2.63 Nucleated RBC % 0 PT 13.1 INR 1.0 APTT 24.6 Sodium 140 Potassium 3.7 Chloride 108 Carbon Dioxide 20.6 L Anion Gap 12 BUN 16 Creatinine 0.90 Estim Creat Clear Calc 102.74 Est GFR (MDRD) Non-Af 93 BUN/Creatinine Ratio 17.5 Glucose 116 H Calcium 9.5 Troponin T High Sens 7 Troponin T Hi Sens 2 Hr 8 NT pro BNP II 71 Radiography Diagnostic Testing: Clinical Impression(s) from Imaging Studies Chest CTA 10/06/25 09:02 IMPRESSION: 1. No evidence of pulmonary embolus. Limitation of the distal segmental and subsegmental vessels. 2. Coronary artery disease. Reading Location: [id number] Discharge Plan Triage Chief Complaint: Shortness of Breath ED Provider: Allen Bajwa Dx/Rx/DC Orders Clinical Impression: HTN (hypertension), Peripheral neuropathy, BPH (benign prostatic hyperplasia), GERD (gastroesophageal reflux disease) Prescriptions: New pantoprazole 40 mg tablet,delayed release (DR/EC) 40 mg PO DAILY Qty: 30 1RF No Action polyethylene glycol 3350 17 gram/dose powder 17 g PO DAILY multivitamin tablet 1 tab PO DAILY valsartan 320 mg tablet 320 mg PO QHS pravastatin 40 MG tablet 40 mg PO QHS gabapentin 300 MG capsule 300 mg PO BIDCM PRN (Reason: numbness and tingling) levothyroxine 25 mcg tablet 25 mcg PO DAILY buprenorphine-naloxone 8-2 mg tablet, sublingual 0.25 tab sublingual QDAY metoprolol succinate 50 mg tablet extended release 24 hr 50 mg PO DAILY hydralazine 25 mg tablet 25 mg PO TID alfuzosin 10 mg tablet extended release 24 hr 10 mg PO QHS acetaminophen 500 mg capsule 1,000 mg PO Q6H PRN (Reason: fever or pain) Primary Care Provider: Edwin Donald Chi Referrals: Edwin Donald Chi, MD [Primary Care Provider, Geriatrics] Activity Restrictions/Additional Instructions: Take the acid reflux medication as prescribed. Be careful you are not eating too late at night as this will likely exacerbate your symptoms. Your CT of your chest did not show any evidence of blood clots in your lungs. Your blood work did not show any acute findings today. Return with worsening symptoms or other concerns otherwise follow-up with your doctor in the outpatient setting Print Language: Djiboutian Disposition Disposition: Home, Self Care
[2025-10-06] MEDS: 0.9% Normal Saline (1000mL) 1,000 ML 999 ML IV (09:12)
[2025-10-06 09:17] LABS: Hematocrit 42.5 % (40-54); Hemoglobin 14.2 g/dL (13.0-16.5); Immature Granulocytes Count 0.020 X10^3/uL (0.0-0.0); Mean Corp Hgb Conc 33.4 g/dL (32-36); Mean Corpuscular Volume 86.6 fL (80-94); Mean Platelet Vol. 9.8 fl (6.2-12.0); NRBC Flagged by Analyzer 0 % (0-5); Platelet Count 226 K/mm3 (150-450); RBC Distribution Width CV 12.9 % (11.6-14.6); RBC Distribution Width SD 40.4 fl (35.1-43.9); Red Blood Count 4.91 M/mm3 (4.6-6.2); White Blood Count 6.8 K/mm3 (4.4-11.0)
[2025-10-06 09:28] LABS: Partial Thromboplast Time 24.6 Seconds (24.1-36.2); Prothrombin Time (Protime)PT. 13.1 SECONDS (11.7-14.9)
[2025-10-06 09:36] LABS: Anion Gap 12 (5-15); BUN 16 mg/dL (4-19); BUN/Creat Ratio 17.5 RATIO (10-20); Calcium,Total 9.5 mg/dL (7.6-11.0); Carbon Dioxide 20.6 mmol/L (21.0-32.0); Chloride 108 mmol/L (98-108); Estimated Creatinine Clearance 102.74 ml/min (50-250); Glucose 116 mg/dL (70-99); Potassium 3.7 mmol/L (3.3-5.1); Pro- Brain NATRIURETIC PEPTIDE 71 pg/mL (<=900); Troponin T High Sensitivity 7 ng/L (<=22)
[2025-10-06 11:44] LABS: Troponin T High Sens 2 HR 8 ng/L (<=22)
[2025-10-06] MEDS: Pantoprazole Sodium 40 MG in 0.9% Normal Saline (100mL MB+) 100 ML 300 MG IV (12:57)
== END 2025-10-06 13:21 | disposition home or self-care (01) ==
PROVIDERS: Emergency Provider Emergency Medicine; PCP Family Medicine Geriatric Medicine; Visit Provider Emergency Medicine
DX: K21.9 Gastro-esophageal reflux disease without esophagitis (principal); I10 Essential (primary) hypertension; E78.5 Hyperlipidemia, unspecified; G62.9 Polyneuropathy, unspecified; R06.02 Shortness of breath; Z79.899 Other long term (current) drug therapy; Z87.891 Personal history of nicotine dependence
CPT/HCPCS: 71275; 80048; 83880; 84484; 85025; 85610; 85730; 93005; 96361; 96365; 99284; Q9967